=== PATIENT | male | born 1945 | race Caucasian/White ===

== ENCOUNTER 2017-08-03 16:47 | Inpatient (IN) | payer MEDICARE, OTHER, SELFPAY ==
[2017-08-03] VITALS (9 sets, daily range): BP systolic 112–134; BP diastolic 70–82; PULSE 75–92; RESP 17–25; TEMP 36.5–36.8; O2SAT 92–95; BMI 31.3; BMI 32.1
--- NOTE | 2017-08-03 18:17 | EKG12_ITS ---
Test Reason : SOB Blood Pressure : / mmHG Vent. Rate : 076 BPM Atrial Rate : 076 BPM P-R Int : 122 ms QRS Dur : 142 ms QT Int : 458 ms P-R-T Axes : 027 -88 078 degrees QTc Int : 515 ms Atrial-sensed ventricular-paced rhythm Biventricular pacemaker detected Abnormal ECG Confirmed by DARA HARRISON ([id number]), associate editor MARLEN BROWNNIG ([id number] on 08/07/2017 9:42:16 AM Referred By: Dara Mcmahon Confirmed By:DARA HARRISON
[2017-08-03] MEDS: Albuterol 2.5 MG/3 ML VIAL.NEB. INHALATION ×2 (18:50)
[2017-08-03] MEDS: Ipratropium/Albuterol Sulfate 3 ML AMPUL.NEB INHALATION (18:50)
[2017-08-03 18:51] LABS: Allen Test POS; Base Excess 1 mmol/L (-2 to +2); Blood Gas Specimen Type ART; O2 Delivery Device Nasal Can; PO2 83 mmHG (75-100); SITE L Radial; SO2 96 % (95-99); Time Given 1840; Total Carbon Dioxide 27 mmol/L; pCO2 40.8 mmHg (35-45); pH 7.41 (7.35-7.45)
[2017-08-03 18:57] LABS: Absolute Lymphocyte Count 0.43 X10^3/ul (0.83-4.51); Basophil# 0.03 X10^3/uL; Basophil% 0.2 % (0-1); Eosinophil# 0.04 X10^3/uL; Eosinophils% 0.3 % (0-5); Hematocrit 46.4 % (40-54); Hemoglobin 15.6 g/dl (13.0-16.5); Lymphocyte # 0.43 X10^3/ul (4.0); Lymphocyte % 2.8 % (19-41); Mean Corp Hgb Conc 33.6 g/gl (32-36); Mean Corpuscular Hgb 30.6 pg (27.0-32.0); Mean Corpuscular Volume 91.2 fL (80-94); Mean Platelet Vol. 10.7 fl (6.2-12.0); Monocyte# 0.71 X10^3/uL; Monocyte% 4.6 % (0-10); Neutrophil # 13.97 X10^3/uL (2.7-7.7); Neutrophil % 90.9 % (47-70); Platelet Count 173 K/mm3 (150-450); RBC Distribution Width CV 14.1 % (11.6-14.6); RBC Distribution Width SD 46.8 fl (35.1-43.9); Red Blood Count 5.09 M/mm3 (4.6-6.2); White Blood Count 15.4 K/mm3 (4.4-11.0)
[2017-08-03 18:59] LABS: Differential Indicated SCAN CRITERIA MET; POSITIVE COUNT NO; POSITIVE DIFFERENTIAL YES; POSITIVE MORPHOLOGY NO
[2017-08-03 19:03] LABS: International Normalized Ratio 1.1; Prothrombin Time (Protime)PT. 13.5 SECONDS (11.7-14.9)
[2017-08-03 19:04] LABS: Partial Thromboplast Time 31.6 Seconds (24.1-36.2)
[2017-08-03] MEDS: MethylPREDNISolone 125 MG/2 ML Vial IV (19:11)
[2017-08-03] MEDS: 0.9% Normal Saline 1,000 ML 150 ML IV (19:11)
[2017-08-03 19:18] LABS: ALB/GLOB Ratio 0.9 RATIO (0.9-2.4); AST(SGOT) 14 U/L (15-37); Alanine Aminotransfer ALT/SGPT 34 U/L (12-78); Albumin, Serum 2.9 g/dL (3.4-5.0); Alkaline Phosphatase 122 U/L (45-117); Anion Gap 7 (5-15); BUN 24 mg/dL (7-18); BUN/Creat Ratio 21.1 RATIO (10-20); Calcium,Total 8.4 mg/dL (8.5-10.1); Chloride 106 mmol/L (98-107); Creatinine, Serum 1.14 mg/dL (0.70-1.30); EST Glomerular Filtration Rate 67 mL/min (>60); Est Glom Filt Rate - Afr Amer 81 mL/min (>60); Estimated Creatinine Clearance 53.96 ml/min; Globulin 3.4 g/dL (2.2-4.2); Glucose 162 mg/dL (70-110); Lactic Acid 1.6 mmol/L (0.4-2.0); Lipase 67 U/L (73-393); Potassium 4.9 mmol/L (3.5-5.1); Protein, Total 6.3 g/dL (6.4-8.2); Sodium Level 139 mmol/L (136-145)
--- NOTE | 2017-08-03 19:20 | RAD_ITS ---
STUDY: X-RAY CHEST REASON FOR EXAM: Male, 71 years old. Cough and shortness of breath TECHNIQUE: PA and lateral COMPARISON: January 03, 2016 FINDINGS: There is minor subsegmental atelectasis or scarring in both lower lobes.. Tiny nodular density in the right upper and lower lobes which may be due to old granulomatous disease. There is no demonstrated pleural abnormality. Normal size heart. Normal mediastinum and debbie. Normal visualized pulmonary arteries. Normal visualized aortic arch and descending thoracic aorta. Postop changes status post median sternotomy and CABG. Pacemaker noted on the left with electrodes in satisfactory position. Dorsal spine demonstrates spondylosis.. Normal visualized ribs, clavicles, and shoulders. There is no demonstrated abnormality of the visualized soft tissue structures of the upper abdomen. No significant changes since prior exam RAD/Chest PA and Lateral IMPRESSION: Minor subsegmental atelectasis or scarring in both lower lobes. No acute cardiopulmonary pathology Electronically Signed: Fito Dinh MD at 19:52 EST , Service support ,
[2017-08-03] MEDS: Oseltamivir Phosphate 75 MG Capsule PO (21:31)
[2017-08-03] MEDS: 0.9% Normal Saline 1,000 ML 999 ML IV (21:31)
--- NOTE | 2017-08-03 22:32 | PCM.HP.STD ---
Problem List (1) Influenza B Status: Acute (2) COPD (chronic obstructive pulmonary disease) Status: Acute (3) Allergic rhinitis Status: Chronic (4) CAD (coronary artery disease) Status: Chronic Qualifiers: Coronary Disease-Associated Artery/Lesion type: bypass graft (5) COPD (chronic obstructive pulmonary disease) Status: Chronic Qualifiers: COPD type: unspecified COPD Qualified Code(s): J44.9 - Chronic obstructive pulmonary disease, unspecified; J44.9 - Chronic obstructive pulmonary disease, unspecified; J44.9 - Chronic obstructive pulmonary disease, unspecified; J44.9 - Chronic obstructive pulmonary disease, unspecified (6) History of permanent cardiac pacemaker placement Status: Chronic (7) Ischemic cardiomyopathy Status: Chronic (8) BHARAT (obstructive sleep apnea) Status: Chronic (9) Obesity Status: Chronic History of Present Illness Date of Admission: 08/03/17 Chief Complaint: Influ B The patient is a 71 year old male w/ h/o CAD, COPD, HTN, and BHARAT admitted for influ B pneumonia. He has been SOB for the past month. SOB has improved but within the last week, it worsened. He was evaluated in urgent care and was given steroid and doxycycline. He was getting better but in the past few days, he noted worsening SOB. Nothing appeared to make it better or worse. He also has worsening cough with increase frequency and intensity. His cough is productive. SOB is severe that it interfered with his ADLs. 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) Allergies ciprofloxacin [From Cipro] Allergy (Verified 08/03/17 16:51) Swelling ciprofloxacin HCl [From Cipro] Allergy (Verified 08/03/17 16:51) Swelling Sulfa (Sulfonamide Antibiotics) Allergy (Verified 08/03/17 16:51) Swelling Home Medications: Ambulatory Orders Medication Instructions Recorded Albuterol Aerosols [Ventolin 2.5 mg INHALATION Q6H PRN 12/25/13 Aerosols] Albuterol Inhaler [Ventolin Hfa] 1 - 2 puff INHALATION Q4H PRN PRN 12/25/13 Atorvastatin Calcium [Lipitor] 80 mg PO QHS 12/25/13 Carvedilol [Coreg (Beta Sterling)] 6.25 mg PO BID 12/25/13 Clopidogrel Bisulfate [Plavix] 75 mg PO DAILY 12/25/13 Nitroglycerin [Nitrostat] 0.4 mg SUBLINGUAL Q5M PRN 12/25/13 Ramipril [Altace] 10 mg PO BID 12/25/13 amlodipine 10 mg tablet 10 mg PO QDAY 06/25/17 fluticasone 50 mcg/actuation nasal 50 mcg INTRANASAL QDAY PRN 06/25/17 spray,suspension budesonide-formoterol HFA 160 2 puff INHALATION Q12H #1 device 07/04/17 mcg-4.5 mcg/actuation aerosol inhaler Pantoprazole Sodium [Protonix] 20 mg PO BID 08/03/17 Tamsulosin HCl [Flomax] 0.4 mg PO DAILY 08/03/17 Smoking Status: Never smoker Alcohol: None Drugs: None - *Family History Maternal Family History: Family History (Last Reviewed 07/04/17 @ 10:22 by Merced Bedoya) Father Heart disease Cancer Brother Heart disease History Items: No pertinent history Review of Systems Constitutional: Denies: Chills, Fever, Weight Change HEENT: Denies: Head Aches, Sinus Congestion, Sinus Drainage Cardiovascular: Denies: Chest Pain, Palpitations Respiratory: Reports: Cough, Shortness of Breath, Sputum production, Wheezing. Denies: Shortness of breath at rest Gastrointestinal: Denies: Abdominal Pain, Nausea, Vomiting Genitourinary: Denies: Dysuria Musculoskeletal: Denies: Joint Pain, Joint Tenderness Skin: Denies: Rash, Wounds Neurological: Denies: Numbness, Tingling, Focal weakness Psychiatric: Denies: Anxiety, Depression, Homicidal Ideations, Suicidal Ideations Hematologic/ Lymphatic: Denies: Easy Bruising, Easy Bleeding VTE Information - Inpt Only VTE Present on Admission: No VTE Mechan Device Prophylaxis: SCD's VTE Pharm Prophylaxis ordered?: Yes Patient Problems: Active and Suspected Problems (Last Reviewed 07/04/17 @ 10:22 by Merced Bedoya) Influenza B (Acute) COPD (chronic obstructive pulmonary disease) (Acute) - Physical Exam General: Alert, Oriented x3, Cooperative HEENT: Atraumatic, PERRLA, EOMI, Normocephalic Neck: Supple, No JVD, Negative Carotid Bruits Lungs: Short of Breath, Wheezes Cardiovascular: Regular rate, No murmurs Abdomen: Bowel Sounds Present, Soft, Non Tender Extremities: No edema, Capillary Refill Less than 3 Seconds Skin: No rashes, No breakdown Musculoskeletal: No Tenderness to Palpation of Joints or Extremities Neurological: Cranial nerves II-XII grossly intact Psych/Mental Status: Normal Affect, Appropriate Vital Signs Temp Pulse Resp BP Pulse Ox 98.2 F 92 17 117/82 H 95 08/03/17 16:48 08/03/17 22:03 08/03/17 22:03 08/03/17 21:36 08/03/17 22:03 Oxygen Flow Rate 3 Oxygen Delivery Method Room Air Weight: 90.718 kg Body Mass Index (BMI) 31.3 Microbiology Past 72 Hours 08/03/17 19:50 Influenza Types A,B Direct FA (BAILEY) - Final Mucosa - Nose Influenzae B Laboratory Tests Past 24 Hrs 08/03/17 08/03/17 08/03/17 18:44 18:44 18:44 WBC 15.4 H RBC 5.09 Hgb 15.6 Hct 46.4 MCV 91.2 MCH 30.6 MCHC 33.6 RDW 14.1 RDW Differential 46.8 H Plt Count 173 MPV 10.7 Immature Gran % (Auto) 1.200 H Neut % (Auto) 90.9 H Lymph % (Auto) 2.8 L [place] % (Auto) 4.6 Eos % (Auto) 0.3 Baso % (Auto) 0.2 Absolute Neuts (auto) 14.0 H Absolute Lymphs (auto) 0.43 L Total Counted Not Reportable PT 13.5 INR 1.1 APTT 31.6 Specimen Type Sample Site pH Bicarbonate Actual POC Total CO2 Base Excess O2 Saturation ABG pCO2 ABG pO2 Eder Test O2 Delivery Device Liter Flow Blood Gas Notified Whom Blood Gas Notified Time Sodium 139 Potassium 4.9 Chloride 106 Carbon Dioxide 26.0 Anion Gap 7 BUN 24 H Creatinine 1.14 Estim Creat Clear Calc 53.96 Est GFR (MDRD) Af Amer 81 Est GFR (MDRD) Non-Af 67 BUN/Creatinine Ratio 21.1 H Glucose 162 H Lactic Acid Calcium 8.4 L Total Bilirubin 1.20 H AST 14 L ALT 34 Alkaline Phosphatase 122 H Troponin I < 0.02 Total Protein 6.3 L Albumin 2.9 L Globulin 3.4 Albumin/Globulin Ratio 0.9 Lipase 67 L 08/03/17 08/03/17 18:44 18:46 WBC RBC Hgb Hct MCV MCH MCHC RDW RDW Differential Plt Count MPV Immature Gran % (Auto) Neut % (Auto) Lymph % (Auto) [place] % (Auto) Eos % (Auto) Baso % (Auto) Absolute Neuts (auto) Absolute Lymphs (auto) Total Counted PT INR APTT Specimen Type ART Sample Site L Radial pH 7.41 Bicarbonate Actual 26.0 POC Total CO2 27 Base Excess 1 O2 Saturation 96 ABG pCO2 40.8 ABG pO2 83 Eder Test POS O2 Delivery Device Nasal Can Liter Flow 2.0 Blood Gas Notified Whom ED MD Blood Gas Notified Time 1840 Sodium Potassium Chloride Carbon Dioxide Anion Gap BUN Creatinine Estim Creat Clear Calc Est GFR (MDRD) Af Amer Est GFR (MDRD) Non-Af BUN/Creatinine Ratio Glucose Lactic Acid 1.6 Calcium Total Bilirubin AST ALT Alkaline Phosphatase Troponin I Total Protein Albumin Globulin Albumin/Globulin Ratio Lipase Assessment/Plan Active and Suspected Problems (Last Reviewed 07/04/17 @ 10:22 by Merced Bedoya) Influenza B (Acute) COPD (chronic obstructive pulmonary disease) (Acute) 71 year old male w/ h/o CAD, COPD, HTN, and BHARAT admitted for influ B pneumonia. 1) Influ B pneumonia: Will start tamiflu. Will also cover for CAP. Will start ceftriaxone and azithromycin. Cultures pending. 2) Acute on chronic COPD exacerbation: Will start steroid, bronchodilator and oxygen. Monitor. 3) HTN: C/w meds. Monitor.
[2017-08-04] VITALS (12 sets, daily range): BP systolic 112–129; BP diastolic 63–74; PULSE 78–89; RESP 16–22; TEMP 36.5–37.2; O2SAT 90–95
--- NOTE | 2017-08-04 00:33 | ED.DCSUM_ITS ---
- ER Visit Summary Date of Service: 08/04/17 Chief Complaint: Shortness of breath History of Present Illness: The patient is a 71 M who was seen last week in urgent care was diagnosed with COPD exacerbation. He was placed on steroids and doxycycline. He was getting better but as the steroids were weaned states he suddenly became worse. He is now coughing more. He is more short of breath. He has been using his nebulizer and his Symbicort without any relief. He notes chills. Headache. Myalgias. Cough or sputum production. He notes chest and back soreness from coughing Physical Examination: Afebrile vital signs show slight tachypnea Gen: Well-nourished well-developed Head: Normocephalic atraumatic Eyes: Perrl EOMI ENT: TMs clear no congestion moist mucous membranes Neck: Supple no lymphadenopathy no JVD nontender CVS: Regular rate rhythm no murmurs normal S1-S2 Respiratory: No distress rhonchi and wheezing chest wall tenderness Abdomen: Soft nontender nondistended normal bowel sounds no masses Back: Nontender Extremity: Nontender no edema Skin: Normal color no rash Neuro: alert orientated ?3 CN II-XII intact normal strength sensation reflexes gait cerebellar Psych: Normal affect normal mood Test Results: Patient is influenza positive. White count 15.4. Troponin less than 0.02. Chest x-ray with no definitive infiltrate. EKG shows a atrial paced rhythm at a rate of 76. Emergency Department Course and Treatment: She received breathing treatments Solu-Medrol and Tamiflu. After treatment the patient however is at 88-89% on room air. With ambulation he goes to 90% but he becomes extremely tachypneic approaching 30. Our plan will be admission. Impression: 1. Influenza B 2. COPD exacerbation 3. Hypoxemia This note was generated with [employer] dictation software. It may contain incorrect words, spelling, and punctuation that were not noted in review of the chart prior to signing ED Disposition - Plan for ED Patient: Disposition: Acute Care Hospital [facility] Chief Complaint: Shortness of Breath
[2017-08-04] MEDS: 0.9% Normal Saline 1,000 ML 100 ML IV ×3 (00:44→21:40)
[2017-08-04] MEDS: Ramipril 10 MG Capsule PO ×3 (00:44→21:06)
[2017-08-04] MEDS: Carvedilol 6.25 MG Tablet PO ×3 (00:45→21:06)
[2017-08-04] MEDS: guaiFENesin 1,200 MG Tablet 1200 MG PO ×3 (00:45→21:06)
[2017-08-04] MEDS: Montelukast 10 MG Tablet PO ×2 (00:47→21:06)
[2017-08-04] MEDS: Ceftriaxone 1 GM/50 ML BAG IV (00:49)
[2017-08-04] MEDS: Pantoprazole Sodium 20 MG Tablet PO ×3 (00:49→21:06)
[2017-08-04 03:23] LABS: Color, Urine Yellow (Yellow); Glucose, Dipstick 1000 mg/dl (Normal); Ketone-Dipstick 5 mg/dl (Negative); Urine Bilirubin Dipstick Negative (Negative); Urine Clarity Sl. Cloudy (Clear)
[2017-08-04 03:24] LABS: Leukocyte Esterase-Dipstick Negative /ul (Negative); Nitrite-Dipstick Negative (Negative); Occult Blood-Urine Negative /ul (Negative); Protein-Dipstick Negative (Negative); Urine Urobilinogen Normal (Normal)
--- NOTE | 2017-08-04 06:08 | RAD_ITS ---
STUDY: X-RAY CHEST REASON FOR EXAM: Male, 71 years old. Shortness of breath, positive for influenza. TECHNIQUE: PA and lateral views of the chest. COMPARISON: 03 August 2017 FINDINGS: Left pacer place with leads overlying the right atrium and right ventricle. Sternotomy wires are midline. Similar-appearing chronic basilar interstitial markings with no new focal airspace disease. Compounding COPD related changes are present. There is no demonstrated pleural abnormality. Normal size heart. Normal mediastinum and debbie. Normal visualized pulmonary arteries. There is atherosclerotic calcification of the aortic arch with tortuosity. Normal visualized thoracic spine. Normal visualized ribs, clavicles, and shoulders. There is no demonstrated abnormality of the visualized soft tissue structures of the upper abdomen. RAD/Chest PA and Lateral IMPRESSION: Overall similar compared to previous exam with no new focal airspace disease. Electronically Signed: Mark Parsons DO at 7:17 EST , Service support ,
[2017-08-04] MEDS: Budesonide Respules 0.5 MG/2 ML AMPUL.NEB. INHALATION (07:41)
[2017-08-04] MEDS: Albuterol 2.5 MG/3 ML VIAL.NEB. INHALATION ×2 (07:41→11:04)
--- NOTE | 2017-08-04 10:24 | CASEMGMT ---
Face to Face with patient for initial transition planning/care coordination assessment. SALVADOR MENA introduced self and role at [facility], pt voices understanding and consents to assessment at this time. Pt sitting up in bed in no distress at this time. Pt A/O x4 at this time and answers all questions appropriately at this time. Care providers, pharmacy, and demographics verified. See attached link. Pt voices no further concerns/needs at this time. Advised pt to ask for CM if any further questions/concerns/needs arise, voices understanding. PLAN: [place] [employer]OR MENA
[2017-08-04] MEDS: amLODIPine 10 MG Tablet PO (10:54)
[2017-08-04] MEDS: Tamsulosin HCl 0.4 MG Capsule PO (10:55)
[2017-08-04] MEDS: Oseltamivir Phosphate 75 MG Capsule PO ×2 (10:55→21:06)
[2017-08-04] MEDS: Clopidogrel Bisulfate 75 MG Tablet PO (10:55)
[2017-08-04] MEDS: Acetaminophen 325 MG Tablet 650 MG PO ×2 (10:59→17:31)
--- NOTE | 2017-08-04 11:26 | CASEMGMT ---
Social Work Referral from switchboard manager to see patient for information about advanced care planning. This web content & social media manager entered room and introduced self as well as web content & social media manager role in the hospital setting to patient. Patient with no support persons present. Patient only wanting information about advanced care planning and is not wanting to complete advanced care planning paperwork at this time. This web content & social media manager going over advanced care planning information and leaving advanced care planning booklet and power of securities attorney/living will paperwork with patient. No further needs identified at this time. Support given. Ethel PORTER, MATERIALS SUPERVISOR
[2017-08-04 11:41] LABS: Hemoglobin A1c 6.5 % (4.2-6.3)
--- NOTE | 2017-08-04 14:41 | PCM.PROGNOTE ---
Patient Problems: Active and Suspected Problems (Last Reviewed 07/04/17 @ 10:22 by Merced Bedoya) Influenza B (Acute) COPD (chronic obstructive pulmonary disease) (Acute) Subjective: pt resting comfortably in bed. He has a non productive cough and feels that he cannot clear the mucus in his lungs. He is SOB and wheezy. No abdominal discomfort, n/v/d at this time. He was recently on doxy and prednisone. He follow Dr. Slaughter for his COPD. - Physical Exam General: Alert, Oriented x3, Cooperative HEENT: Atraumatic, PERRLA, EOMI, Normocephalic Neck: Supple, No JVD, Negative Carotid Bruits Lungs: Diminished, Rhonchi, Wheezes Cardiovascular: Regular rate, No murmurs Abdomen: Bowel Sounds Present, Soft, Non Tender Extremities: No edema, Capillary Refill Less than 3 Seconds Skin: No rashes, No breakdown Musculoskeletal: No Tenderness to Palpation of Joints or Extremities Neurological: Cranial nerves II-XII grossly intact Psych/Mental Status: Normal Affect, Appropriate, Alert and oriented to time, place, person, mood and affect Vital Signs Temp Pulse Resp BP Pulse Ox 97.8 F 89 18 128/73 H 90 08/04/17 08:57 08/04/17 11:04 08/04/17 11:04 08/04/17 08:57 08/04/17 11:04 Oxygen Flow Rate 3 Oxygen Delivery Method Nasal Cannula Weight: 93.1 kg Body Mass Index (BMI) 32.1 Intake and Output for Last 24 Hours 08/02/17 08/03/17 08/04/17 23:59 23:59 23:59 Intake Total 1999 / 1999 Output Total 1250 / 1250 Balance 750 / 750 Microbiology Past 72 Hours 08/04/17 03:05 Legionella Antigen - Final Urine, Clean Catch 08/04/17 03:05 Streptococcus pneumoniae Antigen (M - Final Urine, Clean Catch Laboratory Tests Past 24 Hrs 08/04/17 03:08 Urine Color Yellow Urine Clarity Sl. Cloudy Urine pH 5.0 Ur Specific [place] 1.020 Urine Protein Negative Urine Glucose (UA) 1000 H Urine Ketones 5 H Urine Occult Blood Negative Urine Nitrite Negative Urine Bilirubin Negative Urine Urobilinogen Normal Ur Leukocyte Esterase Negative Assessment/Plan Active and Suspected Problems (Last Reviewed 07/04/17 @ 10:22 by Merced Bedoya) Influenza B (Acute) COPD (chronic obstructive pulmonary disease) (Acute) 1. Acute influenza B with acute bronchitis - + flu swab. Continue tamiflu and azithromycin. DC rocephin. Urine antigens pending. Blood cultures pending. Recently failed steroids and doxy. + leukocytosis. Afebrile. CXR with atelectasis and scarring in both lower lobes. Wheezing and rhonchi on exam. Poor mucus clearance. Continue mucinex. 2. Acute COPD exacerbation - duonebs, solumedrol, pep/IS therapy. 3. Acute hypoxic respiratory failure 2/2 above - significant dyspnea with heavy wheezy and pt is requring up to 4 lpm O2 via NC. continue O2, IS, above therapy 4. Hyperglycemia - Type 2 DM - with significant glycosuria, likely worsened with recent steroids. A1C 6.5. No prior Dx of DM t2 . Start sliding scale and plan to start metformin at DC if no change in renal function. 5. CAD -hx of ischemic cardiomyopathy, pacemaker 6. BHARAT and obesity - if respiratory function worsens would benefit from bipap overnight DVT ppx: heparin DC planning: when respiratory status improved. May need home O2.
[2017-08-04] MEDS: Ipratropium/Albuterol Sulfate 3 ML AMPUL.NEB INHALATION ×2 (15:58→19:38)
[2017-08-04 17:06] LABS: Bedside Glucose 191 mg/dL (70-110)
[2017-08-04] MEDS: Atorvastatin Calcium 80 MG Tablet PO (21:06)
[2017-08-04] MEDS: 0.9% NaCl Peripheral Flush Adult/Peds IV (21:21)
[2017-08-04 23:26] LABS: Bedside Glucose 194 mg/dL (70-110)
[2017-08-05] VITALS (13 sets, daily range): BP systolic 113–139; BP diastolic 62–80; PULSE 65–89; RESP 16–24; TEMP 36.3–36.9; O2SAT 89–96
[2017-08-05] MEDS: Ipratropium/Albuterol Sulfate 3 ML AMPUL.NEB INHALATION ×6 (00:43→23:27)
[2017-08-05] MEDS: 0.9% NaCl Peripheral Flush Adult/Peds IV ×3 (06:02→22:51)
[2017-08-05] MEDS: 0.9% Normal Saline 1,000 ML 100 ML IV (06:58)
[2017-08-05 07:06] LABS: Bedside Glucose 161 mg/dL (70-110)
[2017-08-05] MEDS: Ramipril 10 MG Capsule PO ×2 (10:03→22:49)
[2017-08-05] MEDS: Carvedilol 6.25 MG Tablet PO ×2 (10:03→22:49)
[2017-08-05] MEDS: guaiFENesin 1,200 MG Tablet 1200 MG PO ×2 (10:03→23:28)
[2017-08-05] MEDS: Pantoprazole Sodium 20 MG Tablet PO ×2 (10:04→22:49)
[2017-08-05] MEDS: amLODIPine 10 MG Tablet PO (10:04)
[2017-08-05] MEDS: Clopidogrel Bisulfate 75 MG Tablet PO (10:04)
[2017-08-05] MEDS: Tamsulosin HCl 0.4 MG Capsule PO (10:04)
[2017-08-05] MEDS: Oseltamivir Phosphate 75 MG Capsule PO ×2 (10:06→22:50)
--- NOTE | 2017-08-05 10:25 | NURSING ---
This nurse started Weaning oxygen on pt. Spo2 at rest was 95% on 3L [address]. This nurse turned oxygen level down to 2L and spo2 maintained at 94%. At 1L of oxygen, spo2 is 94%. This nurse to continue to monitor.
--- NOTE | 2017-08-05 12:02 | PCM.PROGNOTE ---
Patient Problems: Active and Suspected Problems (Last Reviewed 07/04/17 @ 10:22 by Merced Bedoya) Influenza B (Acute) COPD (chronic obstructive pulmonary disease) (Acute) Subjective: Pt feels that he is improving. SOB less severe, cough continues, no fevers or chills. He will have his girlfriend bring in his CPAP machine tonight. - Physical Exam General: Alert, Oriented x3, Cooperative HEENT: Atraumatic, PERRLA, EOMI, Normocephalic Neck: Supple, No JVD, Negative Carotid Bruits Lungs: Normal air movement, Rales, Rhonchi Cardiovascular: Regular rate, No murmurs Abdomen: Bowel Sounds Present, Soft, Non Tender Extremities: No edema, Capillary Refill Less than 3 Seconds Skin: No rashes, No breakdown Musculoskeletal: No Tenderness to Palpation of Joints or Extremities Neurological: Cranial nerves II-XII grossly intact Psych/Mental Status: Normal Affect, Appropriate, Alert and oriented to time, place, person, mood and affect Vital Signs Temp Pulse Resp BP Pulse Ox 97.3 F L 65 20 H 133/77 H 90 08/05/17 10:00 08/05/17 10:57 08/05/17 10:57 08/05/17 10:00 08/05/17 11:57 Oxygen Flow Rate 1 Oxygen Delivery Method Nasal Cannula Weight: 93.1 kg Body Mass Index (BMI) 32.1 Intake and Output for Last 24 Hours 08/03/17 08/04/17 08/05/17 23:59 23:59 23:59 Intake Total 3800 / 3800 1207 / 1207 Output Total 1250 / 1250 1150 / 1150 Balance 2550 / 2550 57 / 57 Microbiology Past 72 Hours 08/04/17 03:05 Legionella Antigen - Final Urine, Clean Catch 08/04/17 03:05 Streptococcus pneumoniae Antigen (M - Final Urine, Clean Catch POC Glucose 08/05/17 08/04/17 08/04/17 06:53 21:02 17:03 POC Glucose 161 H 194 H 191 H Assessment/Plan Active and Suspected Problems (Last Reviewed 07/04/17 @ 10:22 by Merced Bedoya) Influenza B (Acute) COPD (chronic obstructive pulmonary disease) (Acute) 1. Acute influenza B with acute bronchitis - + flu swab. Continue tamiflu and azithromycin. Urine antigens negative. Blood cultures pending. Recently failed steroids and doxy. Afebrile. CXR with atelectasis and scarring in both lower lobes. Wheezing and rhonchi on exam. Continue mucinex. 2. Acute COPD exacerbation - duonebs, solumedrol, pep/IS therapy. 3. Acute hypoxic respiratory failure 2/2 above - significant dyspnea with heavy wheezy and pt is requring up to 4 lpm O2 via NC. continue O2, IS, above therapy 4. Hyperglycemia - Type 2 DM - with significant glycosuria, likely worsened with recent steroids. A1C 6.5. No prior Dx of DM t2 . Start sliding scale and plan to start metformin at DC if no change in renal function. 5. CAD -hx of ischemic cardiomyopathy, pacemaker 6. BHARAT and obesity - he is going to try to get his CPAP machine tonight. DVT ppx: heparin DC planning: when respiratory status improved. May need home O2.
[2017-08-05 12:26] LABS: Bedside Glucose 285 mg/dL (70-110)
[2017-08-05 17:36] LABS: Bedside Glucose 175 mg/dL (70-110)
[2017-08-05] MEDS: Atorvastatin Calcium 80 MG Tablet PO (22:49)
[2017-08-05] MEDS: Montelukast 10 MG Tablet PO (22:49)
[2017-08-05 23:11] LABS: Bedside Glucose 289 mg/dL (70-110)
[2017-08-06] VITALS (9 sets, daily range): BP systolic 126–146; BP diastolic 75–85; PULSE 71–85; RESP 16–20; TEMP 36.5–36.6; O2SAT 90–94
[2017-08-06] MEDS: 0.9% NaCl Peripheral Flush Adult/Peds IV ×2 (06:18→09:38)
[2017-08-06 06:56] LABS: Bedside Glucose 251 mg/dL (70-110)
[2017-08-06] MEDS: Ipratropium/Albuterol Sulfate 3 ML AMPUL.NEB INHALATION ×2 (07:21→10:52)
[2017-08-06] MEDS: Pantoprazole Sodium 20 MG Tablet PO (09:38)
[2017-08-06] MEDS: Oseltamivir Phosphate 75 MG Capsule PO (09:38)
[2017-08-06] MEDS: Clopidogrel Bisulfate 75 MG Tablet PO (09:39)
[2017-08-06] MEDS: guaiFENesin 1,200 MG Tablet 1200 MG PO (09:39)
[2017-08-06] MEDS: Tamsulosin HCl 0.4 MG Capsule PO (09:39)
[2017-08-06] MEDS: amLODIPine 10 MG Tablet PO (09:39)
[2017-08-06] MEDS: Carvedilol 6.25 MG Tablet PO (09:40)
--- NOTE | 2017-08-06 10:34 | PCM.PN.HOSP ---
Subjective: No acute events overnight per self and per nursing report. He notes he is breathing with much greater ease, ambulating the halls without marketed wheezing or fatigue per his report. Oxygenation assessment this morning with clearance for continued room air. Patient states he feels near his baseline and eager for discharge to home. Discussed at length needs for continued rest, avoidance of crowds given influenza positive status and avoidance of recently grandchild until appropriately recovered from influenza with no marketed coughing, afebrile status. Also at length avoidance of aggressive activity until steroid taper completion follow up with primary care physician. Patient denies fevers, chills, nausea, emesis, abdominal pain, chest pain or worsened or recurrent dyspnea. Objective: Physical Examination: General: awake, alert, oriented x 3 and cooperative, seated upright in bed in no apparent distress, prior to this was walking around in the room. Skin: normal color, turgor, no icterus, cyanosis. HEENT: AT/NC, EOMI, PERRLA, mildly dry MM. Lungs: Diminished BL bases, mildly coarse, occasional expiratory wheeze noted, recent aggressive ambulation on the floor, encouraged rest and avoidance of aggressive activity until re-assessment per primary care physician. Heart: Regular rate and rhythm; no gallop, rub audible. Abdomen: soft, obese, NTTP, ND, normal BS. Extremities: no cyanosis, clubbing, or edema. Neurological: patient awake, alert, oriented x 3; cognitive function intact; pupils equally reactive to light and accomodation; cranial nerves II-XII grossly normal, moving all 4 extremities, no focal deficits, strength improved, still moderately globally decreased, pushing himself. Psychiatric: affect appears fatigued, no acute evidence of depressive or anxiety feelings. Vitals/I&O's: Vital Signs Temp Pulse Resp BP Pulse Ox 97.7 F L 79 16 126/75 H 94 08/06/17 10:00 08/06/17 10:00 08/06/17 10:08/06/17 10:08/06/17 10:00 Oxygen Flow Rate 1 Oxygen Delivery Method Nasal Cannula Weight: 205 lb 4.006 oz Body Mass Index (BMI) 32.1 Intake and Output for Last 24 Hours 08/04/17 08/05/17 08/06/17 23:59 23:59 23:59 Intake Total 3800 / 3800 2451 / 2451 325 / 325 Output Total 1250 / 1250 2550 / 2550 Balance 2550 / 2550 -99 / -99 325 / 325 Microbiology Past 72 Hours 08/04/17 03:05 Urine, Clean Catch Legionella Antigen - Final 08/04/17 03:05 Urine, Clean Catch Streptococcus pneumoniae Antigen (M - Final Laboratory Results 08/05/17 12:13: POC Glucose 285 H 08/05/17 17:25: POC Glucose 175 H 08/05/17 22:47: POC Glucose 289 H 08/06/17 06:23: POC Glucose 251 H Current Medications Acetaminophen (Tylenol) 650 mg PO Q4H PRN PRN PRN Reason: FEVER Last Admin: 08/04/17 17:31 Dose: 650 mg Albuterol Sulfate (Ventolin Aerosols) 2.5 mg INHALATION Q4H PRN PRN PRN Reason: wheezing Last Admin: 08/04/17 11:04 Dose: 2.5 mg Albuterol/Ipratropium (Duoneb) 3 ml INHALATION Q4HWA.RT [facility] Last Admin: 08/06/17 07:21 Dose: 3 ml Amlodipine Besylate (Norvasc) 10 mg PO DAILY [facility] Last Admin: 08/06/17 09:39 Dose: 10 mg Atorvastatin Calcium (Lipitor) 80 mg PO QHS [facility] Last Admin: 08/05/17 22:49 Dose: 80 mg Carvedilol (Coreg) 6.25 mg PO BID [facility] Last Admin: 08/06/17 09:40 Dose: 6.25 mg Clopidogrel Bisulfate (Plavix) 75 mg PO DAILY [facility] Last Admin: 08/06/17 09:39 Dose: 75 mg Guaifenesin (Mucinex) 1,200 mg PO BID [facility] Last Admin: 08/06/17 09:39 Dose: 1,200 mg Heparin Sodium (Porcine) (Heparin Na) 5,000 unit SC Q8 [facility] Last Admin: 08/06/17 06:18 Dose: 5,000 units Azithromycin 500 mg/ Dextrose 255 mls @ 250 mls/hr IV Q24 [facility] Stop: 08/06/17 11:02 Last Admin: 08/06/17 09:40 Dose: 250 mls/hr Insulin Aspart (Novolog Flexpen (Bkc)) 0 units SC ACHS [facility] PRN Reason: Protocol Last Admin: 08/06/17 06:24 Dose: 2 unit Methylprednisolone (Solu-Medrol) 40 mg IV Q8 [facility] Last Admin: 08/06/17 06:18 Dose: 40 mg Montelukast Sodium (Singulair) 10 mg PO QHS [facility] Last Admin: 08/05/17 22:49 Dose: 10 mg Nitroglycerin (Nitrostat) 0.4 mg SUBLINGUAL Q5M PRN PRN Reason: Chest Pain Oseltamivir Phosphate (Tamiflu) 75 mg PO BID [facility] Stop: 08/08/17 22:01 Last Admin: 08/06/17 09:38 Dose: 75 mg Pantoprazole Sodium (Protonix) 20 mg PO BID [facility] Last Admin: 08/06/17 09:38 Dose: 20 mg Ramipril (Altace) 10 mg PO BID [facility] Last Admin: 08/05/17 22:49 Dose: 10 mg Sodium Chloride () 5 - 30 ml IV UD PRN PRN Reason: SALINE FLUSH Last Admin: 08/06/17 09:38 Dose: 10 ml Tamsulosin HCl (Flomax) 0.4 mg PO DAILY [facility] Last Admin: 08/06/17 09:39 Dose: 0.4 mg Assessment/Plan The patient is a 71 y/o M w/ PMHx: Chronic COPD, Allergic Rhinitis, CAD, s/p pacemaker status, Ischemic cardiomyopathy, BHARAT, Obesity, HTN, HLD who presents to the [facility] ED on 08/03/16 with history of ongoing dyspnea, productive cough, fatigue, malaise, fever over the last several days prior to presentation. (1) General Malaise, Cough, Fever, General Debility secondary to Influenza B Viral Syndrome: CXR in the ED w/ minor subsegmental atelectasis in both lower lobe, no acute findings. Admission CBC w/ WBC 15.4 but recent steroids. Influenza B positive. Maintained on Tamiflu with last dose 08/08/17 (10 doses). Admitted to [place], maintained on oxygen, continue ATC duonebs, PRN albuterol, HOB, IS parameters w/ pending Bld cx x 2 from ED. (2) Acute Hypoxic Respiratory Failure secondary to Acute on chronic COPD exacerbation secondary to #1, Pneumonia ruled out: CXR w/ chronic changes, maintain on oxygen with wean as tolerated to room air, continue ATC duonebs, PRN albuterol, IV methylprednisolone with prednisone transition, HOB, IS parameters, treated w/ IV Azithromcyin. (3) Hyperglycemia, New onset Diabetes mellitus type II: HgbA1c 6.5%, ADA diet, nutrition consulted for education and teaching, rx for glucometer upon discharge, metformin at discharge to be started w/ close PCP follow-up, accu checks w/ ISS. (4) CAD, Ischemic Cardiomyopathy: s/p pacemaker status. Maintain on asa, plavix, statin, BB (5) Hypertension: Continue home regimen including Norvasc, lisinopril, Coreg, PRN hydralazine. (6) Hyperlipidemia: Continue home statin regimen. (7) Obesity: Weight loss and lifestyle changes encouraged, nutrition consulted. (8) BHARAT: CPAP q HS. (9) DVT Prophylaxis: SCDs, heparin.
--- NOTE | 2017-08-06 10:43 | PN_ITS ---
Subjective: No acute events overnight per self and per nursing report. He notes he is breathing with much greater ease, ambulating the halls without marketed wheezing or fatigue per his report. Oxygenation assessment this morning with clearance for continued room air. Patient states he feels near his baseline and eager for discharge to home. Discussed at length needs for continued rest, avoidance of crowds given influenza positive status and avoidance of recently grandchild until appropriately recovered from influenza with no marketed coughing, afebrile status. Also at length avoidance of aggressive activity until steroid taper completion follow up with primary care physician. Patient denies fevers, chills, nausea, emesis, abdominal pain, chest pain or worsened or recurrent dyspnea. Objective: Physical Examination: General: awake, alert, oriented x 3 and cooperative, seated upright in bed in no apparent distress, prior to this was walking around in the room. Skin: normal color, turgor, no icterus, cyanosis. HEENT: AT/NC, EOMI, PERRLA, mildly dry MM. Lungs: Diminished BL bases, mildly coarse, occasional expiratory wheeze noted, recent aggressive ambulation on the floor, encouraged rest and avoidance of aggressive activity until re-assessment per primary care physician. Heart: Regular rate and rhythm; no gallop, rub audible. Abdomen: soft, obese, NTTP, ND, normal BS. Extremities: no cyanosis, clubbing, or edema. Neurological: patient awake, alert, oriented x 3; cognitive function intact; pupils equally reactive to light and accomodation; cranial nerves II-XII grossly normal, moving all 4 extremities, no focal deficits, strength improved, still moderately globally decreased, pushing himself. Psychiatric: affect appears fatigued, no acute evidence of depressive or anxiety feelings. Vitals/I&O's: Vital Signs Temp Pulse Resp BP Pulse Ox 97.7 F L 79 16 126/75 H 94 08/06/17 10:00 08/06/17 10:00 08/06/17 10:08/06/17 10:08/06/17 10:00 Oxygen Flow Rate 1 Oxygen Delivery Method Nasal Cannula Weight: 205 lb 4.006 oz Body Mass Index (BMI) 32.1 Intake and Output for Last 24 Hours 08/04/17 08/05/17 08/06/17 23:59 23:59 23:59 Intake Total 3800 / 3800 2451 / 2451 325 / 325 Output Total 1250 / 1250 2550 / 2550 Balance 2550 / 2550 -99 / -99 325 / 325 Microbiology Past 72 Hours 08/04/17 03:05 Urine, Clean Catch Legionella Antigen - Final 08/04/17 03:05 Urine, Clean Catch Streptococcus pneumoniae Antigen (M - Final Laboratory Results 08/05/17 12:13: POC Glucose 285 H 08/05/17 17:25: POC Glucose 175 H 08/05/17 22:47: POC Glucose 289 H 08/06/17 06:23: POC Glucose 251 H Current Medications Acetaminophen (Tylenol) 650 mg PO Q4H PRN PRN PRN Reason: FEVER Last Admin: 08/04/17 17:31 Dose: 650 mg Albuterol Sulfate (Ventolin Aerosols) 2.5 mg INHALATION Q4H PRN PRN PRN Reason: wheezing Last Admin: 08/04/17 11:04 Dose: 2.5 mg Albuterol/Ipratropium (Duoneb) 3 ml INHALATION Q4HWA.RT [facility] Last Admin: 08/06/17 07:21 Dose: 3 ml Amlodipine Besylate (Norvasc) 10 mg PO DAILY [facility] Last Admin: 08/06/17 09:39 Dose: 10 mg Atorvastatin Calcium (Lipitor) 80 mg PO QHS [facility] Last Admin: 08/05/17 22:49 Dose: 80 mg Carvedilol (Coreg) 6.25 mg PO BID [facility] Last Admin: 08/06/17 09:40 Dose: 6.25 mg Clopidogrel Bisulfate (Plavix) 75 mg PO DAILY [facility] Last Admin: 08/06/17 09:39 Dose: 75 mg Guaifenesin (Mucinex) 1,200 mg PO BID [facility] Last Admin: 08/06/17 09:39 Dose: 1,200 mg Heparin Sodium (Porcine) (Heparin Na) 5,000 unit SC Q8 [facility] Last Admin: 08/06/17 06:18 Dose: 5,000 units Azithromycin 500 mg/ Dextrose 255 mls @ 250 mls/hr IV Q24 [facility] Stop: 08/06/17 11:02 Last Admin: 08/06/17 09:40 Dose: 250 mls/hr Insulin Aspart (Novolog Flexpen (Bkc)) 0 units SC ACHS [facility] PRN Reason: Protocol Last Admin: 08/06/17 06:24 Dose: 2 unit Methylprednisolone (Solu-Medrol) 40 mg IV Q8 [facility] Last Admin: 08/06/17 06:18 Dose: 40 mg Montelukast Sodium (Singulair) 10 mg PO QHS [facility] Last Admin: 08/05/17 22:49 Dose: 10 mg Nitroglycerin (Nitrostat) 0.4 mg SUBLINGUAL Q5M PRN PRN Reason: Chest Pain Oseltamivir Phosphate (Tamiflu) 75 mg PO BID [facility] Stop: 08/08/17 22:01 Last Admin: 08/06/17 09:38 Dose: 75 mg Pantoprazole Sodium (Protonix) 20 mg PO BID [facility] Last Admin: 08/06/17 09:38 Dose: 20 mg Ramipril (Altace) 10 mg PO BID [facility] Last Admin: 08/05/17 22:49 Dose: 10 mg Sodium Chloride () 5 - 30 ml IV UD PRN PRN Reason: SALINE FLUSH Last Admin: 08/06/17 09:38 Dose: 10 ml Tamsulosin HCl (Flomax) 0.4 mg PO DAILY [facility] Last Admin: 08/06/17 09:39 Dose: 0.4 mg Assessment/Plan The patient is a 71 y/o M w/ PMHx: Chronic COPD, Allergic Rhinitis, CAD, s/p pacemaker status, Ischemic cardiomyopathy, BHARAT, Obesity, HTN, HLD who presents to the [facility] ED on 08/03/16 with history of ongoing dyspnea, productive cough, fatigue, malaise, fever over the last several days prior to presentation. (1) General Malaise, Cough, Fever, General Debility secondary to Influenza B Viral Syndrome: CXR in the ED w/ minor subsegmental atelectasis in both lower lobe, no acute findings. Admission CBC w/ WBC 15.4 but recent steroids. Influenza B positive. Maintained on Tamiflu with last dose 08/08/17 (10 doses). Admitted to [place], maintained on oxygen, continue ATC duonebs, PRN albuterol, HOB, IS parameters w/ pending Bld cx x 2 from ED. (2) Acute Hypoxic Respiratory Failure secondary to Acute on chronic COPD exacerbation secondary to #1, Pneumonia ruled out: CXR w/ chronic changes, maintain on oxygen with wean as tolerated to room air, continue ATC duonebs, PRN albuterol, IV methylprednisolone with prednisone transition, HOB, IS parameters, treated w/ IV Azithromcyin. (3) Hyperglycemia, New onset Diabetes mellitus type II: HgbA1c 6.5%, ADA diet, nutrition consulted for education and teaching, rx for glucometer upon discharge , metformin at discharge to be started w/ close PCP follow-up, accu checks w/ ISS. (4) CAD, Ischemic Cardiomyopathy: s/p pacemaker status. Maintain on asa, plavix , statin, BB (5) Hypertension: Continue home regimen including Norvasc, lisinopril, Coreg, PRN hydralazine. (6) Hyperlipidemia: Continue home statin regimen. (7) Obesity: Weight loss and lifestyle changes encouraged, nutrition consulted. (8) BHARAT: CPAP q HS. (9) DVT Prophylaxis: SCDs, heparin.
[2017-08-06] MEDS: Ramipril 10 MG Capsule PO (11:35)
[2017-08-06 11:46] LABS: Bedside Glucose 274 mg/dL (70-110)
--- NOTE | 2017-08-06 11:57 | PCM.DC ---
- Discharge Diagnoses Current Active Problems: Current Active and Chronic Problems (Last Reviewed 07/04/17 @ 10:22 by Merced Bedoya) Influenza B (Acute) COPD (chronic obstructive pulmonary disease) (Acute) (1) General Malaise, Cough, Fever, General Debility secondary to Influenza B Viral Syndrome (2) Acute Hypoxic Respiratory Failure secondary to Acute on chronic COPD exacerbation secondary to #1 (3) Hyperglycemia, New onset Diabetes mellitus type II, HgbA1c 6.5% (4) Obesity You will use the following diet at home:: Calorie/Carbohydrate Controlled (specify 1200, 1400, etc) - ADA 1800 Your food should be the consistency of: Regular Your liquids should be the consistency of: Regular/Thin Discharge Activity: - - Avoid aggressive activity until completed steroid taper and cleared per your primary care at follow-up. May resume sexual activity in: 10-14 days Weight Bearing Status: Weight bearing as tolerated Call your doctor if you observe: Fever of 101 or Higher, Inability to urinate, Inability to have a bowel movement, Shortness of breath, Dizziness, Fainting spells, Chest pain, Uncontrolled pain Instructions: Adult Self-Care for Colds, Influenza, What is COPD?, Airway Clearance: Coughing Techniques, Caring for Your Inhaler, Using an Inhaler Without a Spacer, Chronic Lung Disease: Maximizing Your Energy, Using a Nebulizer (Adult), Using a Blood Sugar Log, Diabetes and Heart Disease, Long-Term Complications of Diabetes, Hyperglycemia (High Blood Sugar), What Is Type 2 Diabetes?, Using Injected Insulin, Oral Medications for Type 2 Diabetes, Healthy Meals for Diabetes, Diabetes: Understanding Carbohydrates, Diabetes: Keeping Feet Healthy, Diabetes: Inspecting Your Feet, Diabetes: Shopping for and Preparing Meals, Diabetes: Caring for Your Body, Diabetes: Sick-Day Plan, Planning for Travel When You Have Diabetes, Eating Out When You Have Diabetes, Exercise to Manage Your Blood Sugar, Types of Insulin Allergies/Adverse Reactions: Allergies ciprofloxacin [From Cipro] Allergy (Verified 08/03/17 16:51) Swelling ciprofloxacin HCl [From Cipro] Allergy (Verified 08/03/17 23:21) hand Swelling Sulfa (Sulfonamide Antibiotics) Allergy (Verified 08/03/17 23:21) Unknown Medications to take at Discharge Albuterol Inhaler [Ventolin Hfa] 1 - 2 puff INHALATION Q4H PRN PRN 12/25/13 Atorvastatin Calcium [Lipitor] 80 mg PO QHS 12/25/13 Carvedilol [Coreg (Beta Sterling)] 6.25 mg PO BID 12/25/13 Clopidogrel Bisulfate [Plavix] 75 mg PO DAILY 12/25/13 Nitroglycerin [Nitrostat] 0.4 mg SUBLINGUAL Q5M PRN 12/25/13 Ramipril [Altace] 10 mg PO BID 12/25/13 amlodipine 10 mg tablet 10 mg PO QDAY 06/25/17 fluticasone 50 mcg/actuation nasal spray,suspension 50 mcg INTRANASAL QDAY PRN 06/25/17 budesonide-formoterol HFA 160 mcg-4.5 mcg/actuation aerosol inhaler 2 puff INHALATION Q12H #1 device 07/04/17 Pantoprazole Sodium [Protonix] 20 mg PO BID 08/03/17 Tamsulosin HCl [Flomax] 0.4 mg PO DAILY 08/03/17 Albuterol Aerosols [Ventolin Aerosols] 2.5 mg INHALATION Q4H PRN PRN #1 box 08/06/17 Guaifenesin [Mucinex] 1,200 mg PO BID #20 tab 08/06/17 Insulin Aspart [Novolog Flexpen] See Protocol [facility] ACHS #1 flexpen 08/06/17 Ipratropium/Albuterol Sulfate [Duoneb] 3 ml INHALATION Q4HWA.RT #1 box 08/06/17 Metformin HCl 500 mg PO BID #60 tab 08/06/17 Montelukast [Singulair] 10 mg PO QHS tablet 08/06/17 Oseltamivir Phosphate [Tamiflu] 75 mg PO BID #10 cap 08/06/17 Prednisone 10 mg PO UD #30 tab 08/06/17 The following prescriptions were given: Albuterol Aerosols [Ventolin Aerosols] 2.5 mg INHALATION Q4H PRN PRN #1 box PRN Reason: dyspnea, wheezing Ipratropium/Albuterol Sulfate [Duoneb] 3 ml INHALATION Q4HWA.RT #1 box Insulin Aspart [Novolog Flexpen] See Protocol SC ACHS #1 flexpen Prednisone 10 mg PO UD #30 tab Guaifenesin [Mucinex] 1,200 mg PO BID #20 tab Metformin HCl 500 mg PO BID #60 tab Oseltamivir Phosphate [Tamiflu] 75 mg PO BID #10 cap Orders to be completed after discharge: Glucometer Location: None Selected Primary Care Physician: Fito Velez MD [Primary Care Provider] - Please follow up with your Primary Care Physician in: Follow-up within 3-5 days to review admission. Proposed Discharge Date: 08/06/17
--- NOTE | 2017-08-06 12:10 | PCM.DC.SUM ---
Discharge Date and Diagnosis Date of Admission: 08/03/17 Date of Discharge: 08/06/17 - Primary Discharge Diagnosis Active and Suspected Problems (Last Reviewed 07/04/17 @ 10:22 by Merced Bedoya) (1) General Malaise, Cough, Fever, General Debility secondary to Influenza B Viral Syndrome (2) Acute Hypoxic Respiratory Failure secondary to Acute on chronic COPD exacerbation secondary to #1, Pneumonia ruled out (3) Hyperglycemia, New onset Diabetes mellitus type II (4) CAD, Ischemic Cardiomyopathy (5) Hypertension (6) Hyperlipidemia (7) Obesity (8) BHARAT - Secondary Discharge Diagnosis Chronic Problems (Last Reviewed 07/04/17 @ 10:22 by Merced Bedoya) History of permanent cardiac pacemaker placement (Chronic) Shortness of breath (Chronic) Nicotine dependence in remission (Chronic) Obesity (Chronic) COPD (chronic obstructive pulmonary disease) (Chronic) BHARAT (obstructive sleep apnea) (Chronic) Allergic rhinitis (Chronic) Ischemic cardiomyopathy (Chronic) Peripheral vascular disease (Chronic) CAD (coronary artery disease) (Chronic) 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 CXR in the ED w/ minor subsegmental atelectasis in both lower lobe, no acute findings. Admission CBC w/ WBC 15.4 but recent steroids. Influenza B positive. Maintained on Tamiflu with last dose 08/08/17 (10 doses). Admitted to [place], maintained on oxygen, continue ATC duonebs, PRN albuterol, HOB, IS parameters. Acute Hypoxic Respiratory Failure secondary to also concurrent Acute on chronic COPD exacerbation secondary to Influenza with Pneumonia ruled out. Transitioned off IV methylprednisolone with prednisone transition w/ taper upon discharge, HOB, IS parameters, treated w/ IV Azithromcyin x 3 days for COPD exacerbation. During admission notable hyperglycemia w/ dx during admission New onset Diabetes mellitus type II w/ HgbA1c 6.5% w/ ADA diet, nutrition consulted for education and teaching, rx for glucometer upon discharge, metformin at discharge w/ recommendation close PCP follow-up, accu checks w/ ISS. Patient discharged to home in improved stable condition with recommended avoidance of aggressive activity until resolution exacerbation, influenza treatment completed without marked cough or fever. Advised PCP follow-up within 3-5 days. Discharge Diet: 1800 Calorie Control Diet Discharge Activity: - - Avoid aggressive activity until completed steroid taper and cleared per your primary care at follow-up. May resume sexual activity in: 10-14 days Weight Bearing Status: Weight bearing as tolerated Call your doctor if you observe: Fever of 101 or Higher, Inability to urinate, Inability to have a bowel movement, Shortness of breath, Dizziness, Fainting spells, Chest pain, Uncontrolled pain Home Medications: Medications to take at Discharge Albuterol Inhaler [Ventolin Hfa] 1 - 2 puff INHALATION Q4H PRN PRN 12/25/13 Atorvastatin Calcium [Lipitor] 80 mg PO QHS 12/25/13 Carvedilol [Coreg (Beta Sterling)] 6.25 mg PO BID 12/25/13 Clopidogrel Bisulfate [Plavix] 75 mg PO DAILY 12/25/13 Nitroglycerin [Nitrostat] 0.4 mg SUBLINGUAL Q5M PRN 12/25/13 Ramipril [Altace] 10 mg PO BID 12/25/13 amlodipine 10 mg tablet 10 mg PO QDAY 06/25/17 fluticasone 50 mcg/actuation nasal spray,suspension 50 mcg INTRANASAL QDAY PRN 06/25/17 budesonide-formoterol HFA 160 mcg-4.5 mcg/actuation aerosol inhaler 2 puff INHALATION Q12H #1 device 07/04/17 Pantoprazole Sodium [Protonix] 20 mg PO BID 08/03/17 Tamsulosin HCl [Flomax] 0.4 mg PO DAILY 08/03/17 Albuterol Aerosols [Ventolin Aerosols] 2.5 mg INHALATION Q4H PRN PRN #1 box 08/06/17 Guaifenesin [Mucinex] 1,200 mg PO BID #20 tab 08/06/17 Insulin Aspart [Novolog Flexpen] See Protocol [facility] ACHS #1 flexpen 08/06/17 Ipratropium/Albuterol Sulfate [Duoneb] 3 ml INHALATION Q4HWA.RT #1 box 08/06/17 Metformin HCl 500 mg PO BID #60 tab 08/06/17 Montelukast [Singulair] 10 mg PO QHS tablet 08/06/17 Oseltamivir Phosphate [Tamiflu] 75 mg PO BID #10 cap 08/06/17 Prednisone 10 mg PO UD #30 tab 08/06/17 Following Prescrptions Were Given to Patient: Albuterol Aerosols [Ventolin Aerosols] 2.5 mg INHALATION Q4H PRN PRN #1 box PRN Reason: dyspnea, wheezing Ipratropium/Albuterol Sulfate [Duoneb] 3 ml INHALATION Q4HWA.RT #1 box Insulin Aspart [Novolog Flexpen] See Protocol [facility] ACHS #1 flexpen Prednisone 10 mg PO UD #30 tab Guaifenesin [Mucinex] 1,200 mg PO BID #20 tab Metformin HCl 500 mg PO BID #60 tab Oseltamivir Phosphate [Tamiflu] 75 mg PO BID #10 cap Other Amb Orders: Glucometer Location: None Selected Primary Care Physician: Fito Velez MD [Primary Care Provider] - Please follow up with your Primary Care Physician in: Follow-up within 3-5 days to review admission. Patient Instructions: Using a Blood Sugar Log, Diabetes and Heart Disease, Long-Term Complications of Diabetes, Hyperglycemia (High Blood Sugar), What Is Type 2 Diabetes?, Using Injected Insulin, Oral Medications for Type 2 Diabetes, Types of Insulin, Healthy Meals for Diabetes, Diabetes: Understanding Carbohydrates, Eating Out When You Have Diabetes, Exercise to Manage Your Blood Sugar, Diabetes: Keeping Feet Healthy, Diabetes: Inspecting Your Feet, Diabetes: Shopping for and Preparing Meals, Diabetes: Caring for Your Body, Diabetes: Sick-Day Plan, Planning for Travel When You Have Diabetes, Adult Self-Care for Colds, What is COPD?, Airway Clearance: Coughing Techniques, Caring for Your Inhaler, Using an Inhaler Without a Spacer, Chronic Lung Disease: Maximizing Your Energy, Using a Nebulizer (Adult), Influenza Disposition: Home Minutes spent on discharge:: 35 Patient Condition:: Fair Meaningful Use Info Meaningful Use Diagnoses (Choose all that apply): None applicable Code Visit Inpatient E&M: 59184 Disch Hosp
[2017-08-06] MEDS: Albuterol 2.5 MG/3 ML VIAL.NEB. INHALATION (12:52)
== END 2017-08-06 13:50 | disposition home or self-care (01) | DRG 193 ==
LOC: ED 18:28 → MS3 22:47
PROVIDERS: Internal Medicine; Physician Assistant; Admitting Provider Internal Medicine; Emergency Provider Emergency Medicine; Family Provider Family Medicine; PCP Family Medicine; Visit Provider Family Medicine
DX: J10.1 Influenza due to other identified influenza virus with other respiratory manifestations (principal); J96.01 Acute respiratory failure with hypoxia; J44.1 Chronic obstructive pulmonary disease with (acute) exacerbation; I25.5 Ischemic cardiomyopathy; I25.10 Atherosclerotic heart disease of native coronary artery without angina pectoris; E11.65 Type 2 diabetes mellitus with hyperglycemia; I10 Essential (primary) hypertension; E78.5 Hyperlipidemia, unspecified; E66.9 Obesity, unspecified; J30.9 Allergic rhinitis, unspecified; G47.33 Obstructive sleep apnea (adult) (pediatric); I73.9 Peripheral vascular disease, unspecified; Z95.810 Presence of automatic (implantable) cardiac defibrillator; Z87.891 Personal history of nicotine dependence
CPT/HCPCS: 36600; 71046; 80053; 81002; 82803; 82962; 83036; 83605; 83690; 84484; 85025; 85610; 85730; 87040; 87449; 87804; 93005; 94640; 94667; 94668; 99284; J7030; A4216

== ENCOUNTER → 2017-10-30 06:15 | Outpatient (CLI) | payer MEDICARE, OTHER, SELFPAY ==
--- NOTE | 2017-10-30 10:29 | STRESSREP_ITS ---
Stress Test Report Date: 10/30/2017 Procedure: Pharmacologic stress nuclear imaging study Indications: Chest pain Consent: Per the patient Procedure: The patient underwent pharmacologic (Regadenoson) evaluation with a peak heart rate of 129 beats per minute (87 predicted maximal heart rate) and a peak blood pressure of 140/78 mmHg. The baseline ECG demonstrated electronic ventricular pacemaker. The peak pharmacologic ECG demonstrated continued electronic ventricular pacemaker. There was a rare premature ectopic complex during recovery. There was no complaint of chest discomfort during pharmacologic infusion or recovery. The examination was discontinued secondary to completion of protocol. Impression: 1. Pharmacologic (Regadenoson) evaluation 2. Peak pharmacologic ECG with continued electronic ventricular pacemaker. 3. It was a rare premature ectopic complex during recovery 4. Nuclear images pending Myocardial perfusion imaging study: Technique: The patient was injected with 11.2 millicuries of technetium 99m Cardiolite and subsequently rest SPECT Cardiolite nuclear imaging was obtained in the horizontal long, vertical long, and short axis views. The patient underwent pharmacologic (Regadenoson) evaluation with a peak heart rate of 129 beats per minute (7 % percent predicted maximal heart rate) and a peak blood pressure of 140/78 mmHg. The patient was injected with 33.4 millicuries of technetium 99m Cardiolite and subsequently stress SPECT Cardiolite nuclear imaging was obtained in the horizontal long, vertical long, and short axis views. A gated Cardiolite study at peak stress was obtained. Interpretation: Rest and stress SPECT Cardiolite nuclear imaging status post realignment, normalization, and attenuation correction demonstrate active uniform tracer uptake and myocardial perfusion appearing within normal limits. There is end systolic thickening and brightening. The gated Cardiolite study demonstrates myocardial thickening and inward wall motion. The reported LVEF is 64 %. Impression: 1. Rest and stress SPECT Cardiolite nuclear imaging demonstrate relative uniform tracer uptake and myocardial perfusion appearing within normal limits. 2. The gated Cardiolite study reports an LVEF of 64 %. This note was generated with [employer] software. It may contain incorrect words, spelling, and punctuation that were not noted in checking the note before signing.
== END ==
PROVIDERS: Family Provider Family Medicine; PCP Family Medicine; Visit Provider Internal Medicine Cardiovascular Disease
DX: R07.9 Chest pain, unspecified (principal)
CPT/HCPCS: 78452; 93017; A9500; A4216; J2785

== ENCOUNTER 2017-11-17 20:43 | Emergency (ER) | payer MEDICARE, OTHER, SELFPAY ==
[2017-11-17 20:44] VITALS: BP 187/91; PULSE 104; RESP 16; TEMP 38.3; O2SAT 94; BMI 32.2
--- NOTE | 2017-11-17 20:57 | RAD_ITS ---
STUDY: X-RAY CHEST REASON FOR EXAM: Male, 71 years old. Cough and COPD TECHNIQUE: Single AP portable view of the chest. COMPARISON: 08/04/17. FINDINGS: There is hyperinflation of the lungs consistent with chronic obstructive lung disease (COPD). No infiltrates. No effusions. There is no demonstrated pleural abnormality. Sternal cerclage wires and vascular clips are present from a prior sternotomy and coronary artery bypass graft procedure (CABG). Pacemaker is seen with leads terminating in the right atrium and right ventricle. Normal mediastinum and debbie. Normal visualized pulmonary arteries. Normal visualized aortic arch and descending thoracic aorta. Normal visualized thoracic spine. Normal visualized ribs, clavicles, and shoulders. There is no demonstrated abnormality of the visualized soft tissue structures of the upper abdomen. RAD/Chest 1 View (Portable) IMPRESSION: There are findings consistent with COPD. There is no evidence of acute chest disease. Electronically Signed: Cristian Alexander MD at 21:22 EDT , Service support ,
--- NOTE | 2017-11-17 20:58 | EKG12_ITS ---
Test Reason : Blood Pressure : / mmHG Vent. Rate : 094 BPM Atrial Rate : 094 BPM P-R Int : 114 ms QRS Dur : 142 ms QT Int : 404 ms P-R-T Axes : 014 -89 065 degrees QTc Int : 505 ms Atrial-sensed ventricular-paced rhythm Biventricular pacemaker detected Abnormal ECG Confirmed by MARCIO MEYER, SHARIF ([id number]), editor publications MARLEN BROWNING ([id number]) on 11/20/2017 1:16:02 PM Referred By: RITA Confirmed By:SHARIF BUCKLEY MD
[2017-11-17] MEDS: Acetaminophen 325 MG Tablet 650 MG PO (21:20)
[2017-11-17] MEDS: 0.9% Normal Saline 1,000 ML 1000 ML IV ×2 (21:21→22:38)
[2017-11-17 21:23] VITALS: BP 158/76; PULSE 99; RESP 19; O2SAT 94
[2017-11-17 21:25] VITALS: O2SAT 94
[2017-11-17 21:34] LABS: Absolute Lymphocyte Count 1.18 X10^3/ul (0.83-4.51); Absolute Neutrophil Count 18.8 X10^3/uL (2.0-7.7); Basophil# 0.03 X10^3/uL; Basophil% 0.1 % (0-1); Eosinophil# 0.04 X10^3/uL; Eosinophils% 0.2 % (0-5); Hematocrit 46.3 % (40-54); Hemoglobin 15.9 g/dl (13.0-16.5); Lymphocyte # 1.18 X10^3/ul (4.0); Lymphocyte % 5.5 % (19-41); Mean Corp Hgb Conc 34.3 g/gl (32-36); Mean Corpuscular Hgb 31.2 pg (27.0-32.0); Mean Platelet Vol. 11.2 fl (6.2-12.0); Monocyte# 1.35 X10^3/uL; Monocyte% 6.3 % (0-10); Neutrophil # 18.75 X10^3/uL (2.7-7.7); Neutrophil % 87.4 % (47-70); Platelet Count 126 K/mm3 (150-450); RBC Distribution Width CV 13.6 % (11.6-14.6); RBC Distribution Width SD 44.4 fl (35.1-43.9); Red Blood Count 5.09 M/mm3 (4.6-6.2); White Blood Count 21.5 K/mm3 (4.4-11.0)
[2017-11-17 21:40] LABS: POSITIVE COUNT NO; POSITIVE DIFFERENTIAL NO; POSITIVE MORPHOLOGY NO
[2017-11-17 22:01] LABS: Anion Gap 9 (5-15); BUN 20 mg/dL (7-18); BUN/Creat Ratio 17.7 RATIO (10-20); Calcium,Total 8.3 mg/dL (8.5-10.1); Chloride 106 mmol/L (98-107); Creatinine, Serum 1.13 mg/dL (0.70-1.30); EST Glomerular Filtration Rate 67 mL/min (>60); Est Glom Filt Rate - Afr Amer 82 mL/min (>60); Estimated Creatinine Clearance 54.43 ml/min; Glucose 132 mg/dL (74-106); Potassium 3.8 mmol/L (3.5-5.1); Sodium Level 139 mmol/L (136-145)
[2017-11-17 22:15] LABS: Lactic Acid 1.7 mmol/L (0.4-2.0)
[2017-11-17 22:39] VITALS: BP 144/76; PULSE 91; RESP 28; TEMP 37.3; O2SAT 92
--- NOTE | 2017-11-17 23:28 | ED.DCSUM_ITS ---
- ER Visit Summary Date of Service: 11/17/17 Chief Complaint: [] Shortness of breath History of Present Illness: The patient is a 71 M [] complaining of shortness of breath, cough, fever. Patient reports he recently completed a course of prednisone tapering, Z-Dawson, hydra codon cough syrup provided from a local urgent care. Patient reports he feels feverish. Has a slightly productive cough without hemoptysis. Reports he has chills. He reports as his tapering dose of prednisone got lower and lower his symptoms progressively worsened. Denies chest pain. No other complaints at this time. Physical Examination: [] Temperature 101, remainder of vitals unremarkable. 71-year-old male no acute distress. Cardiovascular exam is regular rate and rhythm. Lungs are clear to auscultation with diminished breath sounds at the bases. Abdomen is soft nontender. There is no lower extremity edema. Test Results: [] EKG shows paced rhythm with rate of 94. This is unchanged from previous EKG. CBC is significant for white blood cell count of 21.5. Electrolites are normal. Lactic acid is normal at 1.7. Chest x-ray 1 view is negative. Emergency Department Course and Treatment: [] Patient was given 2 L of normal saline as well as oral Tylenol. On serial examination patient had improvement of symptoms. The elevated white blood cell count is not concerning in light of the fact the patient took 10 days of prednisone prior to arrival today. X-rays negative. Patient looks clinically much improved after the fluid boluses. He will be restarted on azithromycin and prednisone. He did receive a dose of Solu-Medrol prior to discharge. He received an oral dose of azithromycin prior to discharge as well. Treatment Plan: [] Follow-up with PCP in 72 hours. Disposition: [] Discharge, stable. Impression: [] Bronchitis This note was generated with [employer] dictation software. It may contain incorrect words, spelling, and punctuation that were not noted in review of the chart prior to signing ED Disposition - Plan for ED Patient: Chief Complaint: Shortness of Breath Referrals: Fito Velez MD [Primary Care Provider] -
--- NOTE | 2017-11-17 23:28 | ED.DEP ---
ED Disposition - Plan for ED Patient: Disposition: Home or Assisted Living Chief Complaint: Shortness of Breath Instructions: ED Upper Resp Infec Abx Tx Prescriptions: Azithromycin 250 mg PO DAILY #4 tab Prednisone [Deltasone] 40 mg PO DAILY #4 tab Referrals: Fito Velez MD [Primary Care Provider] -
[2017-11-17] MEDS: Azithromycin 250 MG Tablet 500 MG PO (23:37)
[2017-11-17 23:38] VITALS: BP 155/88; PULSE 86; RESP 21; O2SAT 94
[2017-11-17] MEDS: MethylPREDNISolone 125 MG/2 ML Vial IV (23:38)
== END 2017-11-17 23:43 | disposition home or self-care (01) ==
PROVIDERS: Emergency Provider Emergency Medicine; Family Provider Family Medicine; PCP Family Medicine
DX: J40 Bronchitis, not specified as acute or chronic (principal); I10 Essential (primary) hypertension; E78.00 Pure hypercholesterolemia, unspecified; I25.10 Atherosclerotic heart disease of native coronary artery without angina pectoris; Z95.1 Presence of aortocoronary bypass graft
CPT/HCPCS: 71045; 80048; 83605; 85025; 87040; 87633; 93005; 96361; 96374; 99285; J7030; A4216

== ENCOUNTER → 2018-05-28 10:03 | Outpatient (CLI) | payer MEDICARE, OTHER, SELFPAY ==
[2018-05-28 10:15] VITALS: PULSE 76; PULSE 77; PULSE 86; PULSE 88; PULSE 89; PULSE 94; PULSE 95; O2SAT 91; O2SAT 92; O2SAT 93; O2SAT 95
--- NOTE | 2018-05-28 12:37 | PCM.PSN.6M ---
PSN 6 Minute Walk Test - 6 Minute Walk Test 6 Minute Walk Test: 6 Minute Walk Test PSN:6-Minute Walk Test Start: 05/28/18 10:26 Freq: Status: Active Protocol: RESP.6MINW Document 05/28/18 10:15 [facility] (Rec: 05/28/18 10:29 [facility] [id number]) 6 Minute Walk Test Date Performed 05/28/18 Time Performed 10:15 Height 5 ft 7 in Weight: 205 lb Weight in Pounds 205.[address]: Kiko Slaughter Assistive device used: None Pre-test Oxygen Delivery Method Room Air Pulse Ox (%) 92 Pulse Rate (60-100 beats/min) 76 Dyspnea Guido Scale (0-10) 0 Exertion Guido Scale (6-20) 6 1st minute Oxygen Delivery Method Room Air Pulse Ox (%) 92 Pulse Rate (60-100 beats/min) 88 Number of Rests Taken 0 2nd minute Oxygen Delivery Method Room Air Pulse Ox (%) 92 Pulse Rate (60-100 beats/min) 89 Number of Rests Taken 0 3rd minute Oxygen Delivery Method Room Air Pulse Ox (%) 91 Pulse Rate (60-100 beats/min) 94 Number of Rests Taken 0 4th minute Oxygen Delivery Method Room Air Pulse Ox (%) 93 Pulse Rate (60-100 beats/min) 89 Number of Rests Taken 0 5th minute Oxygen Delivery Method Room Air Pulse Ox (%) 92 Pulse Rate (60-100 beats/min) 86 Number of Rests Taken 0 6th minute Oxygen Delivery Method Room Air Pulse Ox (%) 93 Pulse Rate (60-100 beats/min) 95 Number of Rests Taken 0 Post-test Oxygen Delivery Method Room Air Pulse Ox (%) 95 Pulse Rate (60-100 beats/min) 77 Dyspnea Guido Scale (0-10) 2 Exertion Guido Scale (6-20) 11 Number of Rests Taken 0 Full Laps Walked 19 Partial Lap, Number of Tiles Walked 37 Total Distance Walked (ft) 1158 - Interpretation Interpretation: The patient ambulated 1158 feet over the course of 6 minutes beginning on room air without assistive devices or breaks. Pretesting oxygen saturation was noted to be 92% on room air. With ambulation, the morenita oxygen saturation was 91%. There was no significant exertional oxygen desaturation. - Recommendations Recommendations: There is no indication for the use of supplemental oxygen at this time.
== END ==
PROVIDERS: Family Provider Family Medicine; PCP Family Medicine; Referring Provider Internal Medicine Critical Care Medicine; Visit Provider Internal Medicine Critical Care Medicine
DX: J44.9 Chronic obstructive pulmonary disease, unspecified (principal)
CPT/HCPCS: 94618

== ENCOUNTER → 2018-05-31 07:55 | Outpatient (CLI) | payer MEDICARE, OTHER, SELFPAY ==
--- NOTE | 2018-06-01 08:30 | PFT ---
INTRODUCTION: The patient is a 72-year-old male that presents for pulmonary function testing secondary to a diagnosis of COPD. Respiratory therapy reports good patient effort. Bronchodilators were used during testing. INTERPRETATION: Forced expiration spirometry demonstrates the presence of a mild large airways obstructive ventilatory defect. There was a significant response to aerosolized bronchodilators noted. Spirograms are of good quality and do not plateau indicating slow emptying of the lungs. Body plethysmography was performed and reveals lung volumes to be within normal limits. Diffusing capacity by single breath CO is within normal limits at 82% of predicted. When compared to previous pulmonary function studies dated June 2017, there has been a 15% reduction in FEV1. IMPRESSION: These pulmonary function studies demonstrate the presence of a partially reversible mild large airways obstructive ventilatory defect with preserved lung volumes and diffusing capacity.
== END ==
PROVIDERS: Family Provider Family Medicine; PCP Family Medicine; Referring Provider Internal Medicine Critical Care Medicine; Visit Provider Internal Medicine Critical Care Medicine
DX: J44.9 Chronic obstructive pulmonary disease, unspecified (principal)
CPT/HCPCS: 94060; 94726; 94729

== ENCOUNTER → 2018-12-23 15:26 | Outpatient (CLI) | payer MEDICARE, OTHER, SELFPAY ==
[2018-12-16 12:46] VITALS: BMI 32.7
== END ==
PROVIDERS: Family Provider Family Medicine; PCP Family Medicine; Referring Provider Otolaryngology Otolaryngology/Facial Plastic Surgery; Visit Provider Otolaryngology Otolaryngology/Facial Plastic Surgery
DX: J32.9 Chronic sinusitis, unspecified (principal)
CPT/HCPCS: 87070; 87077; 87186; 87205

== ENCOUNTER → 2019-05-20 12:48 | Outpatient (CLI) | payer MEDICARE, OTHER, SELFPAY ==
[2018-12-16 12:46] VITALS: BMI 32.7
[2019-04-28 09:00] VITALS: BMI 32.5
--- NOTE | 2019-05-20 12:49 | CT_ITS ---
STUDY: CT CHEST WITHOUT CONTRAST REASON FOR EXAM: Male, 73 years old. Lung nodule RADIATION DOSAGE (If Supplied By Facility): CTDIvol = ( 17.04 ) mGy, DLP = ( 600.29 ) mGycm TECHNIQUE: Transaxial imaging was performed without the administration of intravenous contrast material. Individualized dose optimization techniques were used for this CT. COMPARISON: Chest x-ray 11/17/2017. FINDINGS: There is hyperinflation of the lungs consistent with chronic obstructive lung disease (COPD). Scattered tiny pulmonary densities throughout both lungs are seen most consistent with areas of mild fibrosis and postinflammatory scarring. No definite nodules or mass. No infiltrates. No effusions. There is no demonstrated pleural abnormality. Sternal cerclage wires and vascular clips are present from a prior sternotomy and coronary artery bypass graft procedure (CABG). Pacemaker is seen with leads terminating in the right atrium and right ventricle. There are calcifications of the coronary arteries. Normal mediastinum. Normal hilar regions. Normal unenhanced pulmonary arteries. Normal aorta arch and descending thoracic aorta. There are multi-level degenerative changes of the thoracic spine. Limited views of the upper abdomen show cholelithiasis and fatty infiltration of the pancreas. CT/Chest without Contrast IMPRESSION: COPD with scattered fibrotic changes but no evidence for acute chest disease, nodules or masses. Electronically Signed: Cristian Alexander MD at 21:30 EST , Service support ,
== END ==
PROVIDERS: Family Provider Family Medicine; PCP Family Medicine; Referring Provider Internal Medicine Critical Care Medicine; Visit Provider Internal Medicine Critical Care Medicine
DX: R91.1 Solitary pulmonary nodule (principal)
CPT/HCPCS: 71250

== ENCOUNTER → 2019-12-05 07:57 | Outpatient (CLI) | payer MEDICARE, OTHER, SELFPAY ==
[2019-11-12 09:03] VITALS: BMI 32.7
--- NOTE | 2019-12-05 07:59 | ART_ITS ---
Reason For Study: Claudication Procedure A bilateral lower extremity continuous wave Doppler with analog waveform analysis,segmental pressures,and ankle brachial indexes without exercise. Left Segmental Pressures Left brachial= 137mmHg. Left posterior tibial artery = 142mmHg. Left dorsalis pedis artery = 124mmHg. Left digit = 130 mmHg. The left dorsalis pedis waveforms are triphasic. The left posterior tibial artery waveforms are triphasic. Right Segmental Pressures Right brachial= 135mmHg. Right posterior tibial artery = 161mmHg. Right dorsalis pedis artery = 145mmHg. Right digit = 152 mmHg. The right dorsalis pedis waveforms are triphasic. The right posterior tibial artery waveforms are triphasic. Indices The right ankle brachial index by the dorsalis pedis is 1.06. The right ankle brachial index by the posterior tibial artery is 1.18. The right digital-brachial index is 1.11. The left ankle brachial index by the dorsalis pedis is 0.91. The left ankle brachial index by the posterior tibial artery is 1.04. The left digital-brachial index is 0.95. Interpretation Summary Resting ankle-brachial indices appear bilaterally normal. Ordering Physician: Yanick Singh Referring Physician: Fito Velez Performed By: Shasta Woods RVT
--- NOTE | 2019-12-05 07:59 | ADUL_ITS ---
Reason For Study: Claudication Left Velocities Ext Iliac Artery, dist = 146.9 cm./sec. Common Femoral Artery, mid = 179.8 cm./sec. Supf. Femoral Artery, prox = 133 cm./sec. SFA prox, prox stent, 97.9 cm/sec. SFA mid, mid stent, 92.4 cm/sec. SFA distal, distal stent, 112.5 cm/sec. Profunda Femoral Artery = 82.5 cm./sec. Popliteal artery prox, distal to stent, 105.2 cm/sec. Popliteal Artery, mid = 92.4 cm./sec. Popliteal Artery, distal = 65 cm./sec. Post. Tibial Artery, prox = 77.8 cm./sec. Post Tibial Artery, mid = 63.4 cm./sec. Post Tibial Artery, dist. = 103.4 cm./sec. Peroneal Artery, prox = 32.7 cm./sec. Peroneal Artery, mid = 28 cm./sec. Peroneal Artery,dist. = 42.1 cm./sec. Ant.Tibial Artery, prox = 42.1 cm./sec. Ant Tibial Artery, mid = 125.3 cm./sec. Ant. Tibial Artery, distal = 58.9 cm./sec. Procedure Exam performed in department. Interpretation Summary Patent left lower extremity arteries with patent left superficial femoral artery stent--<50% stenosis 50-99% stenosis left mid anterior tibial artery Ordering Physician: Yanick Singh Referring Physician: Fito Velez Performed By: Shasta Woods RVT
== END ==
PROVIDERS: PCP Family Medicine; Referring Provider Surgery; Visit Provider Surgery
DX: I73.9 Peripheral vascular disease, unspecified (principal)
CPT/HCPCS: 93923; 93926

== ENCOUNTER 2020-01-01 12:01 | Day surgery (SDC) | payer MEDICARE, OTHER, SELFPAY ==
[2019-12-10 15:07] VITALS: BMI 32.7
[2020-01-01] VITALS (7 sets, daily range): BP systolic 118–129; BP diastolic 80–87; PULSE 69–78; RESP 16–20; TEMP 36.3–36.6; O2SAT 92–98; BMI 32.1
[2020-01-01] MEDS: Lactated Ringers 1,000 ML 100 ML IV (12:43)
[2020-01-01 12:56] LABS: Bedside Glucose 138 mg/dL (70-110)
--- NOTE | 2020-01-01 14:28 | HP.PCM_ITS ---
History and Physical Date of Admission: 01/01/20 Intake Vital Signs 11/12/19 Height 5 ft 7 in 11/12/19 Weight: 206 lb 11/12/19 BMI 32.2 Intake Visit Reasons: LEFT KNEE Allergies ciprofloxacin [From Cipro] Allergy (Verified 10/28/19 09:06) Swelling ciprofloxacin HCl [From Cipro] Allergy (Verified 10/28/19 09:06) hand Swelling Sulfa (Sulfonamide Antibiotics) Allergy (Verified 10/28/19 09:06) Unknown Medications Albuterol Inhaler [Ventolin Hfa] 1 - 2 puff INHALATION Q4H PRN PRN 12/25/13 [History Confirmed 11/12/19] Carvedilol [Coreg (Beta Sterling)] 6.25 mg PO BID 12/25/13 [History Confirmed 11/12/19] Nitroglycerin (INPATIENT USE) [Nitrostat] 0.4 mg SUBLINGUAL Q5M PRN 12/25/13 [History Confirmed 11/12/19] Ramipril [Altace] 10 mg PO BID 12/25/13 [History Confirmed 11/12/19] fluticasone propionate 50 mcg/actuation nasal spray,suspension 50 mcg INTRANASAL QDAY PRN 06/25/17 [History Confirmed 11/12/19] aspirin 81 mg tablet,delayed release 81 mg PO QDAY 08/14/17 [History Confirmed 11/12/19] atorvastatin 80 mg tablet 80 mg PO QHS tab 08/14/17 [History Confirmed 11/12/19] amlodipine 5 mg tablet 5 mg PO QDAY #90 tab 09/03/18 [Rx Confirmed 11/12/19] ipratropium 0.5 mg-albuterol 3 mg (2.5 mg base)/3 mL nebulization soln 3 ml INHALATION Q4HWA.RT PRN box 09/03/18 [History Confirmed 11/12/19] apixaban 5 mg tablet 5 mg PO BID #180 tab 08/27/19 [Rx Confirmed 11/12/19] budesonide-formoterol HFA 160 mcg-4.5 mcg/actuation aerosol inhaler 2 puff INHALATION Q12H #3 device 09/24/19 [Rx Confirmed 11/12/19] isosorbide mononitrate 30 mg tablet,extended release 24 hr mg PO 10/28/19 [History Confirmed 11/12/19] [facility] Social History (Updated 11/12/19 @ 10:[address] Sage Russell DO) Smoking Status: Former smoker pack-years: 73 how long ago did patient quit smokin years ago second hand exposure: No alcohol intake: current alcohol intake frequency: holidays/special occasions only Alcohol type: beer substance use type: does not use caffeine: Yes Type: carbonated beverages Number of servings: 1 HPI LEFT KNEE: Chief Complaint: Referral from Breanna Ribera left knee pain Details: Parts of this documentation were recorded by a scribe, this documentation accurately reflects the service provided and the decisions made by me, Sage Russell DO 11/12/19 0404. MACIE NAVA is a 73 year old M here today for left knee pain, he has had this pain since July it did come on rapidly denies any injury or precedent activity changes and changes in activity he saw a PA at [facility] who did xrays, sent to PT and had several sessions for about a month in addition to a steroid injection (end of aug) and neither was helpful. He did have a CT as well because he is unable to have an MRI due to his pacemaker this was not a CT arthrogram and it demonstrated some arthritic changes. Patient is ambulating with an antalgic gait, he has difficulty with sit to stand and now he has back pain from his gait changes. Patient denies any bracing. Denies numbness, tingling or other associated symptoms. He has all over pain but the worst is medial with shooting pain in the anterior leg with ambulation. Patient does take an anticoagulant (eliquis) as a preventive blood clot measure, denies ever having. He has used Tramdol for pain prn. Patient does have painful popping and sensation of instability. Patient does have history of CABG as well as right femoral bypass and left femoral stenting. Ortho Exam Left Knee Skin/Wound: Yes CDI, No ecchymosis, No erythema, No swelling Homans Sign: No Knee ROM: No ROM-Extension -20 to 0 (20), No ROM-Flexion 0-140 (120) Examination: Yes med jt line tenderness, No Lat jt line tenderness, Yes Obey's Test Stability: NML: Anterior Drawer, NML: Posterior Drawer, NML: Valgus 30, NML: Varus 30 Apprehension with Lateral Translation: No Patella Grind: Yes KNEE: synovial hypertrophy with faint joint effusion General: Alert and oriented x3 no acute distress Psych: Mood appropriate cooperative Neurologic neurovascular intact left lower extremity intact sensation light touch no gross motor or sensory deficits Vascular 1 out of 4 symmetric pedal pulses Supplemental Info 07/21/2019 x-ray left knee and CT 08/21/2019 left knee: Degenerative changes tricompartmental mild Assessment & Plan Problems 1. Primary osteoarthritis of left knee M17.12 2. Derangement of meniscus of left knee M23.307 Plan Educated on the knee and explained that he has OA of the knee, and he has signs of meniscus tear that may be causing his painful lack of extension and instability. His options are knee arthroscopy for meniscus debridement and evaluation of the rest of the knee since he cannot get an MRI. He does wish to proceed surgically. He will need clearance from his wire stripper, he has had coronary and femoral bypass and left femoral stent. We will need to coordinate anticoagulant being stopped prior to surgery (would prefer 3-day holiday of Eliquis, and 7-day holiday of aspirin prior to surgery )or bridged based on what wire stripper recommends. In addition I would like to get permission from vascular surgeon who performed stent to use a tourniquet on the left leg. Even if permission granted will attempt without however will not be able to perform surgery if bloody field. Reviewed the pre-operative plans with the patient. Risks and benefits of the procedure were fully explained, including but not limited to infection, neurovascular injury, continued pain, arthritis, stiffness, need for further surgery, re-injury, DVT, PE, general risks of anesthesia, and loss of limb or life. The patient understands all the risks and does wish to proceed with written consent. Follow up post op or sooner if pain, swelling, numbness or associated symptoms, or concerns develop. All questions answered. Patient in agreement of plan. Reviewed with patient again that since we cannot use a tourniquet after consultation with vascular surgeon proceed however if come into a bleeding situation this would affect her visualization and cause us to have to terminate the surgery, he understands this risks and does wish to proceed Coding Level of Care Code 81193 Diagnoses Primary osteoarthritis of left knee M17.12 ??Osteoarthritis type: primary Derangement of meniscus of left knee M23.307 I have re-examined the patient. There are no clinical changes since date of exam Procedure Criteria COVID Risk Discussion: [In addition to standard risk risk of COVID-19 exposure and potential consequences including respiratory failure ventilation and patient wishes to assume this risk secondary to ongoing progressive worsening symptoms that are limiting activities of daily living.]
[2020-01-01] MEDS: Cefazolin 2 GM in 0.9% Normal Saline 100 ML IV (14:59)
[2020-01-01] MEDS: Bupiv/Epi 0.5% Mpf 30 ML Vial (15:20)
[2020-01-01] MEDS: morphine PF (epidural) 5 MG/10 ML Vial (15:30)
[2020-01-01] MEDS: MethylPREDNISolone Acetate 80 MG/ML Vial (15:30)
[2020-01-01] MEDS: Bupivacaine Mpf 0.5% 30 ML VIAL (15:30)
[2020-01-01] MEDS: Epinephrine (1 mg/ml) 1 MG/ML VIAL (15:30)
--- NOTE | 2020-01-01 15:39 | PCM.DC.ORTHO ---
Discharge Diet: No Restrictions Weight Bearing Status: Weight bearing as tolerated Additional Instructions: Ice and elevate next 72 hours .keep dressing on clean and dry for 48 hours then may remove begin showering daily but do not submerge in tub or pool. After shower may apply Band-Aids . Encourage knee range of motion weightbearing as tolerated, use crutches until confident in knee then may discontinue. No strenuous activity. When not ambulating keep iced and elevated next 72 hours. Allergies/Adverse Reactions: Allergies ciprofloxacin [From Cipro] Allergy (Verified 01/01/20 12:08) Swelling ciprofloxacin HCl [From Cipro] Allergy (Verified 01/01/20 12:08) hand Swelling Sulfa (Sulfonamide Antibiotics) Allergy (Verified 01/01/20 12:08) Unknown Medications to take at Discharge Albuterol Inhaler [Ventolin Hfa] 1 - 2 puff INHALATION Q4H PRN PRN 12/25/13 Carvedilol [Coreg (Beta Sterling)] 6.25 mg PO BID 12/25/13 Nitroglycerin (INPATIENT USE) [Nitrostat] 0.4 mg SUBLINGUAL Q5M PRN 12/25/13 Ramipril [Altace] 10 mg PO BID 12/25/13 fluticasone propionate 50 mcg/actuation nasal spray,suspension 50 mcg INTRANASAL QDAY PRN 06/25/17 atorvastatin 80 mg tablet 80 mg PO QHS tab 08/14/17 amlodipine 5 mg tablet 5 mg PO QDAY #90 tab 09/03/18 ipratropium 0.5 mg-albuterol 3 mg (2.5 mg base)/3 mL nebulization soln 3 ml INHALATION Q4HWA.RT PRN box 09/03/18 apixaban 5 mg tablet 5 mg PO BID #180 tab 08/27/19 budesonide-formoterol HFA 160 mcg-4.5 mcg/actuation aerosol inhaler 2 puff INHALATION Q12H #3 device 09/24/19 isosorbide mononitrate 30 mg tablet,extended release 24 hr 30 mg PO BID 10/28/19 tramadol 50 mg tablet 50 mg PO Q8H PRN #21 tab 12/24/19 Acetaminophen [Tylenol Extra Strength] 1,000 mg PO Q6H PRN #30 tab 01/01/20 Oxycodone [Oxyir] 5 mg PO Q4H PRN PRN #60 tablet 01/01/20 The following prescriptions were given: Oxycodone [Oxyir] 5 mg PO Q4H PRN PRN #60 tablet PRN Reason: Pain Score 6-10/10 Transmission Status: Sent to [facility] Acetaminophen [Tylenol Extra Strength] 1,000 mg PO Q6H PRN #30 tab Transmission Status: Pending to [facility] Primary Care Physician: Fito Velez MD [Primary Care Provider] - Test Results: Test results from this visit will be discussed in further detail at your follow-up appointment, if applicable. Please Follow Up With: Sage Russell DO - 2 weeks
--- NOTE | 2020-01-01 15:40 | OP.PCM_ITS ---
Report of Operation Date of Procedure: 01/01/20 Description of Surgical Findings:: Preop diagnosis: Left knee mechanical knee pain Postoperative diagnosis: Grade 4 cartilage wear medial femoral condyle trochlea and medial tibial plateau Procedure: Arthroscopic chondroplasty medial and patellofemoral compartment Anesthesia: General Estimated blood loss: 5 mL Tourniquet time: 0 minutes Complications: none Indication for procedure: This is a 74-year-old male patient who has had ongoing mechanical symptoms of his knee who was unable to have MRI secondary to pacemaker who only had mild degenerative changes on imaging who has had ongoing pain despite conservative treatment and did the patient did wish to proceed with an elective arthroscopic surgery to attempt to alleviate the symptoms. Risk benefits and alternatives of the procedure were reviewed including risk of bleeding infection nerve artery tissue damage need for further surgery continued pain and expected postoperative course. Procedure: The patient was met in the preoperative holding area. The operative extremity was identified by both patient and physician and family and marked. Patient was brought back to the operating room on a wheeled cart and transferred to the operating table in the supine position. Anesthesia was started. A well- padded tourniquet was placed on the operative extremity. A lower extremity leg stern was secured to the operative extremity. The contralateral extremity was well-padded and the end of the bed was flexed to 90 degrees. The patient was prepped and draped in the usual sterile fashion. A timeout was called to ensure the proper patient, procedure, and extremity were being contemplated. 0.5% Cody gabriela with epinephrine was injected into the planned incisional areas under the skin only. An Esmarch was used to exsanguinate the extremity and the tourniquet was inflated. An 11 blade scalpel was used to make a stab incision in the anterior lateral portal. The arthroscope was inserted into the intercondylar notch and inflow and outflow tubes were attached. Arthroscopic visualization began. The medial compartment was entered. An 18-gauge spinal needle was used to establish the placement for anterior medial portal. An 11 blade scalpel was used to make a stab incision. Blunt probe was inserted followed by a meniscal probe. Immediately there was noted to be grade 4 cartilage wear of the medial femoral condyle nearly diffuse and small area of grade 4 of the medial tibial plateau there was loose cartilage flaps which were debrided with a 3 5 full- radius shaver the medial meniscus was evaluated and there was no tearing the ACL was found to be intact. The lateral compartment was entered free of meniscal or cartilage pathology The arthroscope was switched to the medial portal to complete the procedure. The medial and lateral gutters were inspected and were free of loose bodies. The patellofemoral joint was inspected grade 4 cartilage wear of the trochlea diffusely. There was good patellar tracking. The knee was thoroughly irrigated and drained. An intra-articular injection with 5 cc 0.5% Marcaine plain 4 mg of morphine and 40 mg of Depo-Medrol was injected intra- articularly. The arthroscope was removed the portals were closed with 3-0 nylon arthroscopic stitches. Followed by Xeroform 4 x 4's ABDs web roll and an Abhi wrap. The tourniquet was let down and the drapes were removed. All counts were correct. The patient was brought back to the PACU in stable condition.
[2020-01-01 16:16] LABS: Bedside Glucose 113 mg/dL (70-110)
== END 2020-01-01 17:25 | disposition home or self-care (01) ==
LOC: SDC 12:02 → AC 12:02
PROVIDERS: Anesthesiology; PCP Family Medicine; Referring Provider Orthopaedic Surgery; Visit Provider Orthopaedic Surgery
PROC: (CPT 29870; principal; 2020-01-01 14:40)
DX: M17.12 Unilateral primary osteoarthritis, left knee (principal); M23.307 Other meniscus derangements, unspecified meniscus, left knee; E11.9 Type 2 diabetes mellitus without complications; Z79.01 Long term (current) use of anticoagulants; Z79.82 Long term (current) use of aspirin; Z87.891 Personal history of nicotine dependence; Z88.1 Allergy status to other antibiotic agents; Z88.2 Allergy status to sulfonamides; Z95.0 Presence of cardiac pacemaker; Z95.1 Presence of aortocoronary bypass graft; I10 Essential (primary) hypertension; G47.30 Sleep apnea, unspecified
CPT/HCPCS: 01400; 29880; 82962; 87635; G2023; J7120; J2405; U0003

== ENCOUNTER → 2020-01-14 08:55 | Outpatient (CLI) | payer MEDICARE, OTHER, SELFPAY ==
[2020-01-01 12:25] VITALS: BMI 32.1
--- NOTE | 2020-01-14 08:56 | CDU_ITS ---
Reason For Study: STENOSIS Rt. Velocities/BP Lt. Velocities/BP Prox CCA 61.4/13.1 cm/sec. Prox CCA 55.7/10.4 cm/sec. Mid CCA 51.5/14.2 cm/sec. Mid CCA 54.9/15.6 cm/sec. Dist CCA 44.9/14.2 cm/sec. Dist CCA 49.6/13.0 cm/sec. Prox ICA 81.2/20.8 cm/sec. Prox ICA 225.9/54.6 cm/sec. Mid ICA 73.5/18.6 cm/sec. Mid ICA 105.7/18.8 cm/sec. Dist ICA 65.4/20.5 cm/sec. Dist ICA 107.6/27.2 cm/sec. Rt. ICA/CCA = 81.2/61.4=1.3. Lt. ICA/CCA = 225.9/55.7=4.05. Prox ECA 71.3/15.3 cm/sec. Prox ECA 96.5/10.6 cm/sec. Rt. Vert. 28.4/12.0 cm/sec. Lt. Vert. 28.2/8.4 cm/sec. Right Extracranial There is intimal thickening but no significant atherosclerotic plaque noted in the right common carotid artery. There is heterogeneous, irregular atherosclerotic plaque noted in the right internal carotid artery. There is no significant atherosclerotic plaque noted in the right external carotid artery. Antegrade flow is noted in the right vertebral artery. Left Extracranial There is heterogeneous, smooth atherosclerotic plaque noted in the left common carotid artery. There is heterogeneous, irregular atherosclerotic plaque noted in the left internal carotid artery. The atherosclerotic plaque causes acoustic shadowing. The left internal carotid artery is very tortuous. There is no significant atherosclerotic plaque noted in the left external carotid artery. Antegrade flow is noted in the left vertebral artery. Interpretation Summary Irregular calcific plaque with shadowing at the proximal right internal carotid artery with less than 50% stenosis. <50% stenosis right external carotid Irregular calcific plaque at the proximal left internal carotid artery with 50 to 69% stenosis .findings may be closer to the upper limits of this range) <50% stenosis left external carotid Patent and antegrade vertebrals bilaterally I do not have an available previous examination for comparison Ordering Physician: Yanick Singh Referring Physician: Fito Velez Performed By: Sharri Clement RDCS, RVT
== END ==
PROVIDERS: PCP Family Medicine; Referring Provider Surgery; Visit Provider Surgery
DX: I65.21 Occlusion and stenosis of right carotid artery (principal); I77.9 Disorder of arteries and arterioles, unspecified
CPT/HCPCS: 93880

== ENCOUNTER → 2020-03-09 17:46 | Outpatient (CLI) | payer MEDICARE, OTHER, SELFPAY ==
[2020-02-18 10:22] VITALS: BMI 32.2
[2020-03-07 10:57] VITALS: BMI 32.2
--- NOTE | 2020-03-09 17:47 | CT_ITS ---
CT of the left lower extremity INDICATION: Preop CHIKIS procedure TECHNIQUE: CT of the left lower extremity was performed in the axial projection without contrast scanning from the left hip to the ankle followed by sagittal and coronal reconstructions. Radiographic technique was optimized to limit patient radiation dose. DLP was 1185.58 FINDINGS: No evidence for acute fracture or dislocation of the left hip. There is mild acetabular spurring and mild narrowing of the superolateral compartment of the joint. There is narrowing of the medial compartment of the femoral tibial shaft with mild spurring of medial tibial condyle. The visualized portions of the tibial and fibular shafts are intact. Incidental finding of left superficial femoral/popliteal stent CT/Extremity Lower without Contra IMPRESSION: Mild degenerative changes of the left hip and the knee. No acute fracture or other significant bony pathology Electronically Signed: Fito Dinh MD at 19:41 EDT , Service support ,
== END ==
PROVIDERS: PCP Family Medicine; Referring Provider Orthopaedic Surgery; Visit Provider Orthopaedic Surgery
DX: M17.12 Unilateral primary osteoarthritis, left knee (principal)
CPT/HCPCS: 73700

== ENCOUNTER → 2020-03-26 14:27 | Outpatient (CLI) | payer MEDICARE, OTHER, SELFPAY ==
[2020-03-19 08:07] VITALS: BMI 32.2
[2020-03-26 15:56] LABS: Prothrombin Time (Protime)PT. 12.7 SECONDS (11.7-14.9)
== END ==
PROVIDERS: Anesthesiology; PCP Family Medicine; Referring Provider Orthopaedic Surgery; Visit Provider Orthopaedic Surgery
DX: Z01.812 Encounter for preprocedural laboratory examination (principal)
CPT/HCPCS: 83735; 85610; 85730; 86850; 86900; 86901; 87081

== ENCOUNTER 2020-03-30 12:18 | Observation (INO) | payer MEDICARE, OTHER, SELFPAY ==
[2020-02-18 10:22] VITALS: BMI 32.2
[2020-03-19 08:07] VITALS: BMI 32.2
--- NOTE | 2020-03-23 16:04 | EKG12_ITS ---
Test Reason : PRE-OP Blood Pressure : / mmHG Vent. Rate : 071 BPM Atrial Rate : 071 BPM P-R Int : 124 ms QRS Dur : 156 ms QT Int : 486 ms P-R-T Axes : 051 -88 082 degrees QTc Int : 528 ms Atrial-sensed ventricular-paced rhythm Abnormal ECG Confirmed by MASON MEYER, SHARRI ([id number]), scientific publications editor WHITNEY SUÁREZ ([id number]) on 03/24/2020 11:15:47 AM Referred By: Sage Russell Confirmed By:SHARRI CUEVAS MD
[2020-03-30] VITALS (14 sets, daily range): BP systolic 81–148; BP diastolic 58–81; PULSE 59–96; RESP 16–20; TEMP 36.1–37.1; O2SAT 92–99; BMI 32.6
[2020-03-30] MEDS: Scopolamine 1mg/72hr Patch 1 PATCH TRANSDERM. (06:29)
[2020-03-30] MEDS: Acetaminophen 500 MG Tablet 1000 MG PO ×3 (06:31→21:41)
[2020-03-30] MEDS: Gabapentin 600 MG Tablet PO (06:31)
[2020-03-30] MEDS: Lactated Ringers 1,000 ML 100 ML IV (07:10)
[2020-03-30] MEDS: Cefazolin 2 GM in 0.9% Normal Saline 100 ML IV (07:39)
--- NOTE | 2020-03-30 07:48 | HP.PCM_ITS ---
History and Physical Date of Admission: 03/30/20 Intake Vital Signs 03/19/20 BMI 32.2 Intake Visit Reasons: left knee Chief Complaint: left knee Accompanied by: Is patient in pain?: Yes Allergies ciprofloxacin [From Cipro] Allergy (Verified 03/08/20 10:48) Swelling ciprofloxacin HCl [From Cipro] Allergy (Verified 03/08/20 10:48) hand Swelling Sulfa (Sulfonamide Antibiotics) Allergy (Verified 03/19/20 09:56) Unknown Medications Albuterol Inhaler [Ventolin Hfa] 1 - 2 puff INHALATION Q4H PRN PRN 12/25/13 [History Confirmed 03/19/20] Carvedilol [Coreg (Beta Sterling)] 6.25 mg PO BID 12/25/13 [History Confirmed 0 03/19/20] Nitroglycerin (INPATIENT USE) [Nitrostat] 0.4 mg SUBLINGUAL Q5M PRN 12/25/13 [History Confirmed 03/19/20] Ramipril [Altace] 10 mg PO BID 12/25/13 [History Confirmed 03/19/20] fluticasone propionate 50 mcg/actuation nasal spray,suspension 50 mcg INTRANASAL QDAY PRN 06/25/17 [History Confirmed 03/19/20] atorvastatin 80 mg tablet 80 mg PO QHS tab 08/14/17 [History Confirmed 03/19/20] ipratropium 0.5 mg-albuterol 3 mg (2.5 mg base)/3 mL nebulization soln 3 ml INHALATION Q4HWA.RT PRN box 09/03/18 [History Confirmed 03/19/20] apixaban 5 mg tablet 5 mg PO BID #180 tab 08/27/19 [Rx Confirmed 03/19/20] isosorbide mononitrate 30 mg tablet,extended release 24 hr 30 mg PO BID 10/28/19 [History Confirmed 03/19/20] Acetaminophen [Tylenol Extra Strength] 1,000 mg PO Q6H PRN #30 tab 01/01/20 [Rx Confirmed 03/19/20] tramadol 50 mg tablet 50 mg PO Q6H PRN #20 tab 01/23/20 [Rx Confirmed 03/19/20] amlodipine 5 mg tablet 5 mg PO QDAY tab 02/17/20 [History Confirmed 03/19/20] montelukast 10 mg tablet 10 mg PO DAILY 02/17/20 [History Confirmed 03/19/20] budesonide-formoterol HFA 160 mcg-4.5 mcg/actuation aerosol inhaler 2 puff INHALATION Q12H #3 device 03/08/20 [Rx Confirmed 03/19/20] PFSH Social History (Updated 03/19/20 @ 11:[address] Sage Russell DO) Smoking Status: Former smoker pack-years: 73 how long ago did patient quit smokin years ago second hand exposure: No alcohol intake: current alcohol intake frequency: holidays/special occasions only Alcohol type: beer substance use type: does not use caffeine: Yes Type: carbonated beverages Number of servings: 1 HPI left knee: Details: Parts of this documentation were recorded by a scribe, this documentation accurately reflects the service provided and the decisions made by me, Dr. Sage Russell DO 03/19/20 0801. MACIE NAVA is a 74 year old M here today for left knee IOVERA tx prior to left TKA. Patient continues to have generalized left knee pain. Denies numbness, tingling or other associated symptoms. Does have poping and clicking of the knee. He has limited extension. ROS Musc Reports joint pain, Reports joint swelling, Reports limited joint movement, Denies radiating pain into limb, Reports stiffness, Denies tingling Skin/Breast Denies redness, Denies lesions, Denies rash, Denies skin swelling, Denies unusu al bruising Neuro No tingling Ortho Exam Left Knee Skin/Wound: No ecchymosis, No erythema, No swelling Homans Sign: No Knee ROM: No ROM-Extension -20 to 0 (lacking 40), No ROM-Flexion 0-140 (110) Stability: NML: Anterior Drawer, NML: Laurie, NML: Posterior Drawer, NML: Valgus 0, NML: Valgus 30, NML: Varus 0, NML: Varus 30 Apprehension with Lateral Translation: No Patellar Tilt Normal: Yes Patella Grind: Yes KNEE: no s/sx of infection Office Procedures Iovera Details:: Preoperative diagnosis :left knee osteoarthritis Postoperative diagnosis: Same Procedure: Cryotherapy with Iovera device to anterior femoral cutaneous nerve and 2 branches of the infrapatellar saphenous nerve III nerves in total Description of procedure: Patient was brought back to the procedure room the operative extremity was identified by both patient and physician. The PIP flexion crease was measured to the midpoint of the patella and this distance was divided in 3 resulting in 10 cm location proximal to the midpoint of the patella. This line was extended medial and lateral to the extent of the edges of the patella. This was our treatment line for the anterior femoral cutaneous nerve. A second treatment line was made 5 cm medial to the inferior pole of the patella and 5 cm distally. The leg was prepped with alcohol and Betadine. Lidocaine with epi was used along the treatment lines. Using the Iovera device treatment lines were treated with 1 minute cycles. Reproduction of paresthesias was monitored in the area of nerve distribution. Once all 3 nerves were treated across the 2 treatment lines patient was cleaned and a light dressing with 4 x 4 and Abhi wrap was applied. Patient tolerated the procedure without complication. Supplemental Info 07/21/2019 x-ray left knee and CT 08/21/2019 left knee: Degenerative changes tricompartmental mild Assessment & Plan Problems 1. Primary osteoarthritis of left knee M17.12 Plan Patient educated on the IOVERA procedure and wishes to proceed with signing consent. Treatment preformed without any concerns. Instructed to stop the Eliquis 5 days prior and NSAIDs 7 days prior to surgery. We would not be able to use tourniquet secondary to his left lower extremity stenting Follow up 2 weeks post op or sooner if pain, swelling, numbness or associated symptoms, or concerns develop. All questions answered. Patient in agreement of plan. Orders Orders: Iovera Today M25.569 Coding Level of Care Code Attention Assistant Director Of Admissions Diagnoses Primary osteoarthritis of left knee M17.12 I have re-examined the patient. There are no clinical changes since date of exam Procedure Criteria Procedure Type: Elective COVID Risk Discussion: The surgeon/proceduralist and patient have discussed in detail the risk of exposure to and/or potential harm posed by the COVID-19 virus with having a surgery/procedure at this time versus the risk of delaying the surgery/procedure. It is not possible to know either the risk of delaying the surgery or procedure or chance of getting an infection with perfect accuracy, but a joint decision was made between the patient and the surgeon/proceduralist to proceed at this time with the scheduled surgery/procedure as indicated on the consent form.
[2020-03-30] MEDS: dexAMETHasone 10 MG/ML Vial IV (08:45)
[2020-03-30] MEDS: 0.9% Normal Saline (Pres. free 10 ML Vial (09:00)
[2020-03-30] MEDS: Bupivacaine Mpf 0.5% 30 ML VIAL (09:00)
[2020-03-30] MEDS: Epinephrine (1 mg/ml) 1 MG/ML VIAL (09:00)
[2020-03-30] MEDS: Betamethasone/Betamethasone 30 MG/5 ML Vial (09:00)
--- NOTE | 2020-03-30 10:13 | RAD_ITS ---
STUDY: X-RAY - LEFT KNEE REASON FOR EXAM: Male, 74 years old. Post op left knee replacement TECHNIQUE: AP and lateral view(s) of the knee. COMPARISON: None. FINDINGS: Normal visualized distal femur. Normal visualized proximal tibia and fibula. Normal proximal tibiofibular articulation. The patient is status post left total knee replacement. There is good alignment. Postoperative soft tissue changes. A vascular stent is seen in the superficial femoral artery and popliteal artery. RAD/Knee 1 or 2 Views IMPRESSION: Status post total knee replacement. There is better alignment. Postoperative soft tissue changes. Vascular stent seen in the superficial femoral artery and popliteal artery. Electronically Signed: Ramone Mcmahon, at 11:29 EDT , Service support ,
--- NOTE | 2020-03-30 10:21 | OP.PCM_ITS ---
Report of Operation Date of Procedure: 03/30/20 Description of Surgical Findings:: Preoperative diagnosis: Left knee DJD Postoperative diagnosis: Same Procedure: Left total knee arthroplasty CT guided Robotic Assisted Implant: Hermes triathlon cemented femoral component size 4, press-fit tibial baseplate size 5, cemented asymmetric patella size 35 polyethylene X3 size 9 CS Anesthesia: Spinal with adductor canal block Tourniquet time: 0 min Complications: None Condition: Stable to PACU Estimated blood loss: 200 cc Indication for procedure: This is a 74-year-old male with long standing degenerative joint disease of the knee who has failed conservative treatment and wished to proceed with elective total knee arthroplasty. He does have a stent on the left lower extremity and did not have clearance for tourniquet use showed no tourniquet will be used, risk benefits and alternatives were reviewed inclu ding; risk of bleeding, infection, nerve artery and tissue damage, continued pain, postoperative stiffness, venous thromboembolism, need for postoperative rehabilitation, mechanical feel to the knee, and expected postoperative course. The operative CT and templating was performed with component sizing Procedure: The patient was met in the preoperative holding area. The operative extremity was identified by both patient and physician and was marked. Patient was met by anesthesia. An adductor canal block was placed by anesthesia postoperatively the patient was brought back to the operating room on a wheeled cart and transferred to the operating table in the supine position. Anesthesia was started. A well-padded tourniquet was placed on the operative extremity. The patient was prepped and draped in the usual sterile fashion. A timeout was called to ensure the proper patient procedure and extremity were being contemplated. A 10 blade scalpel was used to make a midline incision down through the skin and subcutaneous tissue. Skin retractors placed. Bovie was used to perform meticulous hemostasis. full-thickness flaps were elevated medial and lateral along the joint capsule. A deep blade scalpel was used to perform a medial parapatellar arthrotomy. The knee was brought to full extension. A Bovie was used to release the soft tissues off the most proximal aspect of the medial tibial plateau a three-quarter inch curved osteotome was also used for this process. The infrapatellar fat pad was excised. The fat pad was excised partially anterior lateral portion the anterior medial was elevated from the femur. At this point our intra-articular femoral array was placed of a 45 degree angle proximal and posterior to the medial epicondyle. Our tibial array was placed greater than 1 hands breath below the incision at a 20 degree angle stab incisions were used for this case were attached and checked with the robotic software. Tourniquet was let down. At this point registration rodríguez were taken throughout the knee as well as checkpoints placed in the femur and tibia once the knee was registered then tensioned the medial and lateral ligaments in extension and 90 degrees of flexion. We then used these numbers to adjust our components within parameters to balance the knee in both flexion and extension once this was done on our monitor we then proceeded with using the robotic arm to make our tibial plateau cut and anterior posterior and chamfer cuts on the femur we then trialed and achieved the desired plan with a well- balanced knee. Lug holes were drilled in the femur the tibia preparation was completed with a fin punch and the patella was prepared by first using a caliper to ensure sufficient bone stock and a patellar reamer to remove the desired a mount of bone locals were drilled for an asymmetric poly-. We then brought the knee through range of motion with excellent patellar tracking. We thoroughly irrigated the knee with a trial components were removed a posterior capsular injection with her standard cocktail was performed the aqua Mantis was also used to aid in hemostasis. Betadine rinse was allowed to sit and washed out components were cemented. Aricept rinse was then used followed by several more rate liters of irrigation after it was allowed to sit. Joint capsule was closed with #1 Ethibond [id number] followed by Vicryl in the subcutaneous tissues staple in the skin arrays and checkpoints were removed prior to closure all counts were correct stab incisions were closed with a stable standard dressing in the form of Mepilex for the main incision Xeroform 4 x 4 and Tegaderm over pin site holes. Thigh-high CHETAN hose applied over top of dressing. Patient tolerated the procedure well and was directed to PACU in stable condition no intraoperative complications At the end of the case during the closure of the joint capsule there was noted that someone picked up a sponge off of the floor and put her on a back basin that was in the sterile area the pharmacy technician assistant may have touched the contaminated sponge at this point the wound was thoroughly irrigated with several liters of irrigation Betadine and Aricept and repeated with irrigation prior to closure
[2020-03-30 10:56] LABS: Bedside Glucose 153 mg/dL (70-110)
--- NOTE | 2020-03-30 11:02 | SUR.PHASEI ---
PPP with doppler left lower extrem cool to touch, right lower extrem warm palpable . +1 edema to right lower extrem
[2020-03-30] MEDS: Lactated Ringers 1,000 ML 125 ML IV (11:20)
[2020-03-30] MEDS: Cefazolin 1 GM/50 ML BAG IV ×2 (11:38→19:18)
--- NOTE | 2020-03-30 12:18 | PCM.HP.BLA ---
History and Physical Date of Admission: 03/30/20 Intake Vital Signs 03/22/20 Height 6 ft 1 in 03/22/20 Weight: 165 lb 03/22/20 BMI 21.7 03/22/20 BMI 24.5 Intake Visit Reasons: RIGHT KNEE Accompanied by: Spouse Is patient in pain?: Yes Pain scale (1-10): 5 Allergies Penicillins Allergy (Verified 03/22/20 15:29) Hives Medications Hydrocodone/Acetaminophen [[place] 5-325 Tablet] 1 ea PO 4X/DAY #20 tab 03/20/20 [Rx Confirmed 03/22/20] [facility] Social History (Updated 03/22/20 @ 16:[address] Sage Russell DO) household members: spouse, children housing: house Smoking Status: Never smoker alcohol intake: current what type of physical activity do you participate in: none do you feel safe at home: Yes HPI RIGHT KNEE: Details: Parts of this documentation were recorded by a scribe, this documentation accurately reflects the service provided and the decisions made by me, Dr. Sage Russell DO 03/22/20 1523. BIANCA NAVAS is a 33 year old M here today to establish as a new patient in regards to his right patella. Patient fell off of a ladder while working in his barn onto concrete. DOI: 01/18/2020 at 5pm. Patient states he landed on his feet, denies head injury. Has been applying ice packs with some relief. Patient has been taking Ibruprofen q6-7hrs. Taking Vicodin prn, prescribed from [facility]. ROS Const Reports system reviewed and no additional complaints, except as docu, Denies chills, Denies fatigue, Denies fever(s), Denies weakness Card Reports system reviewed and no additional complaints, except as docu, Denies chest pain, Denies shortness of breath Resp Denies shortness of breath GI Reports system reviewed and no additional complaints, except as docu, Denies constipation, Denies incontinent of stools, Denies loose stools, Denies nausea, Denies vomiting Reports system reviewed and no additional complaints, except as docu, Denies urinary incontinence Musc Reports system reviewed and no additional complaints, except as docu, Reports joint pain, Reports joint swelling, Denies numbness, Denies stiffness, Denies tingling Skin/Breast Reports system reviewed and no additional complaints, except as docu, Denies dry skin, Denies redness, Denies lesions, Denies new lesions, Denies non-healing lesions, Denies itching, Denies rash, Denies skin ulcer, Denies sores, Denies wounds Neuro No numbness, No tingling, No weakness Endo Denies fatigue Ortho Exam Right Knee Date of injury: 03/20/20 Skin/Wound: Yes ecchymosis, Yes swelling KNEE: developing Fracture blistering on medial knee abrasion 2cmSuperficial without sign of infection Large joint effusion with hematoma Supplemental Info 03/20/2020 X-ray right knee: Displaced transverse patella fracture Assessment & Plan Problems 1. Closed displaced transverse fracture of right patella, initial encounter S82.031A Plan Personally reviewed x-rays and educated patient has a patella fracture. Explained that it is torn all the way through. Discussed and educated he needs surgery to be fixed. Keep using ice packs and keeping leg elevated. No NSAIDs, increases risk of bleeding. Reviewed the pre-operative plans with the patient. Risks and benefits of the procedure were fully explained, including but not limited to infection, neurovascular injury, continued pain, arthritis, stiffness, need for further surgery, re-injury, DVT, PE, general risks of anesthesia, and loss of limb or life. The patient understands all the risks and does wish to proceed with written consent. Explained repair technique.He will have postoperative restrictions Limit on bending the knee, can place weight on it right awayWith the knee in extension only. Will use a [place] brace for a few weeks. All questions answered. Patient in agreement of plan. Will schedule surgery for , 03/25/2020. Coding Level of Care Code Off vis,new,level 3 Diagnoses Closed displaced transverse fracture of right patella, initial encounter S82.031A ??Encounter type: initial encounter ??Fracture morphology: transverse ??Fracture type: closed ??Laterality: right ??Fracture alignment: displaced I have re-examined the patient. There are no clinical changes since date of exam
--- NOTE | 2020-03-30 13:58 | CASEMGMT ---
SALVADOR MENA Assessment Intro role of CM to patient and his friend Sharri who will be caring for him at home. Pt states he lives in one story home, 4 steps into home. patient's friend is available to assist and provide transportation on discharge. Patient is concerned he will not be able to do outpt therapy right away and wished to discuss Home Health. Discussed that PT/OT would see patient and give recommendations on dc needs. SALVADOR MENA did give a list with [facility] and highlighted [facility] as they prefer [facility], and pt lives in [place]. Pt states no outpt therapy has been set up yet by doctor's office. DX: LTKR PCP: Dr. Velez Surgeon: Dr. Morales Pharmacy: [facility] Benefit: yes Living arrangements: one story home, 4 steps into home. Patient was having difficulty ambulating due to knee pain prior to admission. Has concerns re: getting in and out of car and managing steps. DME: walker, cpap. Transportation: Patient DC Goal: home with [facility] DC PLAN: undetermined. PT/OT will see patient this afternoon. Home with outpt therapy in [place] vs Home with [facility]. Orlin MONTILLAN RN ACM
[2020-03-30] MEDS: oxyCODONE 5 MG Tablet PO ×2 (14:20→15:17)
[2020-03-30 15:15] LABS: Bedside Glucose 301 mg/dL (70-110)
[2020-03-30 15:15] LABS: Bedside Glucose 277 mg/dL (70-110)
[2020-03-30] MEDS: Albuterol 2.5 MG/3 ML VIAL.NEB. INHALATION (18:59)
[2020-03-30] MEDS: Budesonide Respules 0.5 MG/2 ML AMPUL.NEB. INHALATION (19:02)
[2020-03-30] MEDS: Carvedilol 6.25 MG Tablet PO (21:41)
[2020-03-30] MEDS: Senna/Docusate Sodium 1 Tablet 2 TABLET PO (21:41)
[2020-03-30] MEDS: Atorvastatin Calcium 80 MG Tablet PO (21:41)
[2020-03-30] MEDS: Ramipril 10 MG Capsule PO (21:41)
[2020-03-31] MEDS: oxyCODONE 5 MG Tablet PO ×3 (00:22→12:50)
[2020-03-31 03:20] VITALS: BP 145/66; PULSE 88; RESP 18; TEMP 36.5; O2SAT 95
[2020-03-31] MEDS: 0.9% Saline Lock 10 ML Syringe IV (03:22)
[2020-03-31] MEDS: Cefazolin 1 GM/50 ML BAG IV (03:23)
[2020-03-31] MEDS: Acetaminophen 500 MG Tablet 1000 MG PO ×2 (05:17→12:50)
[2020-03-31] MEDS: APIXABAN 5 MG TABLET PO (05:17)
[2020-03-31 05:43] LABS: Hematocrit 40.6 % (40-54); Hemoglobin 13.7 g/dL (13.0-16.5); Mean Corp Hgb Conc 33.7 g/dL (32-36); Mean Platelet Vol. 10.7 fl (6.2-12.0); Platelet Count 169 K/mm3 (150-450); RBC Distribution Width CV 13.1 % (11.6-14.6); RBC Distribution Width SD 42.9 fl (35.1-43.9); Red Blood Count 4.56 M/mm3 (4.6-6.2); White Blood Count 23.3 K/mm3 (4.4-11.0)
[2020-03-31 06:09] LABS: Anion Gap 5 (5-15); BUN 18 mg/dL (7-18); BUN/Creat Ratio 15.8 RATIO (10-20); Calcium,Total 8.4 mg/dL (8.5-10.1); Chloride 104 mmol/L (98-107); Creatinine, Serum 1.14 mg/dL (0.70-1.30); EST Glomerular Filtration Rate 66 mL/min (>60); Est Glom Filt Rate - Afr Amer 80 mL/min (>60); Estimated Creatinine Clearance 51.54 ml/min; Glucose 226 mg/dL (74-106); Potassium 4.2 mmol/L (3.5-5.1); Sodium Level 137 mmol/L (136-145)
[2020-03-31 07:05] VITALS: PULSE 88; RESP 19
[2020-03-31] MEDS: Budesonide Respules 0.5 MG/2 ML AMPUL.NEB. INHALATION (07:16)
[2020-03-31] MEDS: Ipratropium/Albuterol Sulfate 3 ML AMPUL.NEB INHALATION (07:16)
[2020-03-31] MEDS: Ramipril 10 MG Capsule PO (07:30)
[2020-03-31] MEDS: Carvedilol 6.25 MG Tablet PO (07:30)
[2020-03-31] MEDS: amLODIPine 5 MG Tablet PO (07:30)
[2020-03-31] MEDS: Senna/Docusate Sodium 1 Tablet 2 TABLET PO (07:31)
[2020-03-31] MEDS: Montelukast 10 MG Tablet PO (07:31)
[2020-03-31 07:36] VITALS: BP 151/77; PULSE 89; RESP 16; TEMP 36.4; O2SAT 94
--- NOTE | 2020-03-31 09:49 | CASEMGMT ---
SALVADOR MENA in to discuss discharge planning with patient. Patient not sure if he wants HHC vs outpatient therapy. SALVADOR MENA explained benefits of outpatient therapy if he is able to get in and out of house safely and has transportation. Patient states he has transportation. Patient also states that he was attending outpatient therapy at [facility] prior to surgery but is unsure if he has appt scheduled for after surgery. SALVADOR MENA called [facility] and patient has confirmed appt for 04/02/20 at 1100. SALVADOR MENA updated patient regarding appointment at [facility]. Patient voice understanding.
[2020-03-31 10:54] VITALS: BP 137/74; PULSE 80; RESP 16; TEMP 36.7; O2SAT 92
--- NOTE | 2020-03-31 12:11 | DS.PCM_ITS ---
Discharge Date and Diagnosis Date of Admission: 03/30/20 Date of Discharge: 03/31/20 - Secondary Discharge Diagnosis Chronic Problems: Chronic Problems (Last Reviewed 03/08/20 @ 10:49 by Sole Tran) Atrial flutter (Chronic) Erectile dysfunction (Chronic) Hyperlipidemia, unspecified (Chronic) Essential (primary) hypertension (Chronic) Presence of biventricular implantable cardioverter-defibrillator (ICD) (Chronic 04/22/12) Presence of stent in coronary artery (Chronic) x7 CX, PL, PDA of RCA Atherosclerotic heart disease of [place] coronary artery without angina pectoris (Chronic) DEL ROSARIO side to side to the diagonal and end to side of anterior descending, SVG to PL of RCA 05/20 Aortocoronary bypass status (Chronic ~05/17/12) CABG x3-DEL ROSARIO side to side to the diagonal and end to side of anterior descending, SVG to posterolateral of RCA 05/20 Carotid artery disease (Chronic) Shortness of breath (Chronic) Ischemic cardiomyopathy (Chronic) Peripheral vascular disease (Chronic) Hospital Course and Treatment Operations: None, total knee replacement Summary of Care Provided: The patient is a 74 year old M who has long history of degenerative joint disease to the knee who has failed conservative treatment and wished to undergo elective total knee arthroplasty. Patient underwent the aformentioned procedure on the admission date without any intraoperative complications. Patient did receive pre-and postoperative antibiotics which were discontinued within 23 hours postoperatively. Patient did receive [spinal anesthesia as well as an adductor canal block postoperatively]. pain was controlled with IV and transition to p.o. pain medication Patient will be discharged home with oxycodone and will continue Tylenol as well. Patient had minimal intraoperative blood loss and 2gm tranexamic acid was administered there was no need for postoperative blood transfusion Patients vital signs remained stable. Patient was started on both mechanical and chemical DVT per prophylaxis postoperatively in the form of SCDs CHETAN hose and [Eliquis 5 mg twice daily for which she will continue as he takes this regularly ]. thigh high chetan hose placed over top of the meplix silver dressing. This should be removed 72 hrs post operatively and showering begun daily at that time with warm water and antibacterial soap. not to submerge for 3 weeks. To change dressing daily after first dressing change. Patient will follow-up in the office in 2 weeks. - Physical Exam Vitals/I&O's: Vital Signs Temp Pulse Resp BP Pulse Ox 98.1 F 80 16 137/74 H 92 03/31/20 10:54 03/31/20 10:54 03/31/20 10:54 03/31/20 10:54 03/31/20 10:54 Oxygen Flow Rate (L/min) 6 Oxygen Delivery Method Room Air Weight: 208 lb 8.917 oz Body Mass Index (BMI) 32.6 Finger Stick Blood Glucose 153 Intake and Output for Last 24 Hours 03/29/20 03/30/20 03/31/20 23:59 23:59 23:59 Intake Total 3335.5 / 3335.5 500 / 500 Output Total 1650 / 1650 500 / 500 Balance 1685.5 / 1685.5 0 / 0 General: Alert, Oriented x3, Cooperative, No apparent distress Extremities: - - dressing CDI, NVI Laboratory Results 03/30/20 05:52: POC Glucose 301 H 03/30/20 05:53: POC Glucose 277 H 03/31/20 05:28: WBC 23.3 H, RBC 4.56 L, Hgb 13.7, Hct 40.6, MCV 89.0, MCH 30.0, MCHC 33.7, RDW Std Deviation 42.9, RDW Coeff of Kip 13.1, Plt Count 169, MPV 10.7 03/31/20 05:28: Sodium 137, Potassium 4.2, Chloride 104, Carbon Dioxide 28.0, Anion Gap 5, BUN 18, Creatinine 1.14, Estim Creat Clear Calc 51.54, Est GFR (MDRD) Af Amer 80, Est GFR (MDRD) Non-Af 66, BUN/Creatinine Ratio 15.8, Glucose 226 H, Calcium 8.4 L Current Medications Acetaminophen (Tylenol) 1,000 mg PO Q8H MARY Last Admin: 03/31/20 05:17 Dose: 1,000 mg Documented by: Albuterol Sulfate (Ventolin Aerosols) 2.5 mg INHALATION Q6HWA.RT MARY Last Admin: 03/30/20 18:59 Dose: 2.5 mg Documented by: Albuterol/Ipratropium (Duoneb) 3 ml INHALATION Q4HWA.RT PRN PRN Reason: SOB &/OR WHEEZING Last Admin: 03/31/20 07:16 Dose: 3 ml Documented by: Amlodipine Besylate (Norvasc) 5 mg PO DAILY [facility] Last Admin: 03/31/20 07:30 Dose: 5 mg Documented by: Apixaban (Eliquis) 5 mg PO BID [facility] Last Admin: 03/31/20 05:17 Dose: 5 mg Documented by: Atorvastatin Calcium (Lipitor) 80 mg PO QHS [facility] Last Admin: 03/30/20 21:41 Dose: 80 mg Documented by: Budesonide (Pulmicort Aerosol) 0.5 mg INHALATION Q12H.RT [facility] Last Admin: 03/31/20 07:16 Dose: 0.5 mg Documented by: Carvedilol (Coreg) 6.25 mg PO BID [facility] Last Admin: 03/31/20 07:30 Dose: 6.25 mg Documented by: Hydromorphone HCl (Dilaudid Inj) 0.5 mg IV Q2H PRN PRN PRN Reason: Pain Score 6-10/10 Insulin Human Lispro (Humalog Kwikpen (Bkc)) 1 - 6 unit SC Q4H PRN PRN; Protocol PRN Reason: BG>/= 180, SEE PROTOCOL Montelukast Sodium (Singulair) 10 mg PO DAILY [facility] Last Admin: 03/31/20 07:31 Dose: 10 mg Documented by: Nitroglycerin (Nitrostat) 0.4 mg SUBLINGUAL Q5M PRN PRN Reason: CHEST Ondansetron HCl (Zofran) 4 mg IV Q6H PRN PRN PRN Reason: NAUSEA Oxycodone HCl (Oxyir) 5 - 10 mg PO Q4H PRN PRN PRN Reason: Pain Score 4-10/10 Last Admin: 03/31/20 06:09 Dose: 10 mg Documented by: Ramipril (Altace) 10 mg PO BID [facility] Last Admin: 03/31/20 07:30 Dose: 10 mg Documented by: Senna/Docusate Sodium (Senokot-S, Verito-Colace) 2 tablet PO BID [facility] Last Admin: 03/31/20 07:31 Dose: 2 tablet Documented by: Sodium Chloride () 10 - 40 ml IV UD PRN PRN Reason: SALINE FLUSH Last Admin: 03/31/20 03:22 Dose: 20 ml Documented by: Discharge Diet: No Restrictions Weight Bearing Status: Weight bearing as tolerated Home Medications: Medications to take at Discharge Albuterol Inhaler [Ventolin Hfa] 1 - 2 puff INHALATION Q4H PRN PRN 12/25/13 Carvedilol [Coreg (Beta Sterling)] 6.25 mg PO BID 12/25/13 Nitroglycerin (INPATIENT USE) [Nitrostat] 0.4 mg SUBLINGUAL Q5M PRN 12/25/13 Ramipril [Altace] 10 mg PO BID 12/25/13 fluticasone propionate 50 mcg/actuation nasal spray,suspension 50 mcg INTRANASAL QDAY PRN 06/25/17 atorvastatin 80 mg tablet 80 mg PO QHS tab 08/14/17 ipratropium 0.5 mg-albuterol 3 mg (2.5 mg base)/3 mL nebulization soln 3 ml INHALATION Q4HWA.RT PRN box 09/03/18 apixaban 5 mg tablet 5 mg PO BID #180 tab 08/27/19 isosorbide mononitrate 30 mg tablet,extended release 24 hr 30 mg PO BID 10/28/19 amlodipine 5 mg tablet 5 mg PO QDAY tab 02/17/20 montelukast 10 mg tablet 10 mg PO DAILY 02/17/20 budesonide-formoterol HFA 160 mcg-4.5 mcg/actuation aerosol inhaler 2 puff INHALATION Q12H #3 device 03/08/20 Acetaminophen [Tylenol] 1,000 mg PO Q6H PRN PRN 03/23/20 Acetaminophen [Tylenol] 1,000 mg PO Q8H #100 tab 03/31/20 Apixaban [Eliquis] 5 mg PO BID tablet 03/31/20 Oxycodone [Oxyir] 5 - 10 mg PO Q4H PRN PRN #60 tablet 03/31/20 Following Prescriptions Were Given to Patient: Oxycodone [Oxyir] 5 - 10 mg PO Q4H PRN PRN #60 tablet PRN Reason: Pain Score 4-10/10 Transmission Status: Sent to [facility] Acetaminophen [Tylenol] 1,000 mg PO Q8H #100 tab Transmission Status: Pending to [facility] Primary Care Physician: Fito Velez MD [Primary Care Provider] - Please Follow Up With: [facility] When: Sunday Please Follow Up With: Sage Russell DO When: 2 weeks Additional Instructions: Ice and elevate one week while not ambulating. Ambulation is encouraged. Weightbearing as tolerated. Use assistive devise for stability. Encourage FULL knee extension and flexion 1 time EVERY time you get up and down and MULTIPLE times per day. No showering 72 hours after surgery. Begin showering postop day #3. Remove the dressing prior to shower and gently wash with warm water and antibacterial soap then pat dry and place abdominal pad (or plain gauze) and CHETAN hose over top. This is to be done daily. Do not submerge for 3 weeks. If not showering daily after the initial 72 hours then you must clean incision and change dressing daily. Do not allow animals near the incision area. Keep clean. Follow anticoagulation recommendations as prescribed. Do not take any NSAIDs while on blood thinner. Do not take any additional narcotic pain medication other than what was prescribed on you surgery day without discussing with physician. Start physical therapy. If you are not currently scheduled for physical therapy or you are unsure of appointment time please call office [facility] to arrange. Call Dr. Russell with any concerns. Medical Necessity - Tobacco Use Smoking Status: Former smoker Tobacco Use: Non-smoker Meaningful Use Info Meaningful Use Diagnoses (Choose all that apply): None applicable
[2020-03-31 14:16] VITALS: BP 109/72; PULSE 86; RESP 18; TEMP 36.5; O2SAT 93
== END 2020-03-31 14:55 | disposition home or self-care (01) ==
LOC: SDC 13:32 → MS3 13:32
PROVIDERS: Anesthesiology; Admitting Provider Orthopaedic Surgery; PCP Family Medicine; Referring Provider Orthopaedic Surgery; Visit Provider Orthopaedic Surgery
PROC: 0SRD0JZ Replacement of Left Knee Joint with Synthetic Substitute, Open Approach (ICD-10-PCS; CPT 27447; principal; 2020-03-30 07:00)
DX: M17.12 Unilateral primary osteoarthritis, left knee (principal); S82.031A Displaced transverse fracture of right patella, initial encounter for closed fracture; Z11.59 Encounter for screening for other viral diseases; W11.XXXA Fall on and from ladder, initial encounter; Y93.89 Activity, other specified; Y92.71 Barn as the place of occurrence of the external cause; I48.92 Unspecified atrial flutter; I73.9 Peripheral vascular disease, unspecified; I25.5 Ischemic cardiomyopathy; I25.10 Atherosclerotic heart disease of native coronary artery without angina pectoris; Z95.1 Presence of aortocoronary bypass graft; Z79.899 Other long term (current) drug therapy; Z87.891 Personal history of nicotine dependence
CPT/HCPCS: 01400; 27447; 64447; S2900; 36415; 73560; 80048; 82962; 85027; 87635; 93005; 94640; 96361; 96365; 96366; 97110; 97116; 97162; 97166; 97530; 97535; 99218; 99251; C1776; C9803; J7040; J7120; A4216; G0378; G0379; G0463; J0702; J3490; U0003

== ENCOUNTER 2020-05-07 06:56 | Inpatient (IN) | payer MEDICARE, OTHER, SELFPAY ==
[2020-04-14 10:16] VITALS: BMI 32.6
[2020-05-07] VITALS (38 sets, daily range): BP systolic 96–184; BP diastolic 55–119; PULSE 83–98; RESP 18–93; TEMP 36.4–37.3; O2SAT 30–97; BMI 31.8; BMI 33.8
--- NOTE | 2020-05-07 07:04 | EKG12_ITS ---
Test Reason : Blood Pressure : / mmHG Vent. Rate : 093 BPM Atrial Rate : 093 BPM P-R Int : 104 ms QRS Dur : 154 ms QT Int : 422 ms P-R-T Axes : 065 -78 092 degrees QTc Int : 524 ms Atrial-sensed ventricular-paced rhythm Biventricular pacemaker detected Abnormal ECG Confirmed by MARCIO MEYER, SHARIF ([id number]), loan expeditor WHITNEY SUÁREZ ([id number]) on 05/11/2020 11:07:22 AM Referred By: PETAR Confirmed By:SHARIF BUCKLEY MD
--- NOTE | 2020-05-07 07:05 | RAD_ITS ---
STUDY: X-RAY CHEST REASON FOR EXAM: Male, 74 years old. COUGH, DIAGNOSED WITH COVID, SOB OVERNIGHT TECHNIQUE: Single AP portable view of the chest. COMPARISON: Comparison is made with prior study dated 11/17/2017. FINDINGS: Limited examination. Findings suggestive of a wedge-shaped infiltrate in the peripheral aspect of the right upper lobe. There is no demonstrated pleural abnormality. Sternal cerclage wires and vascular clips are present from a prior sternotomy and coronary artery bypass graft procedure (CABG). A left-sided dual-chamber pacemaker is seen. Normal mediastinum and debbie. Normal visualized pulmonary arteries. Normal visualized aortic arch and descending thoracic aorta. Normal visualized thoracic spine. Normal visualized ribs, clavicles, and shoulders. There is no demonstrated abnormality of the visualized soft tissue structures of the upper abdomen. RAD/Chest 1 View (Portable) IMPRESSION: Findings suggestive of a wedge-shaped infiltrate in the lateral aspect of the right mid lung. Electronically Signed: Ramone Mcmahon, at 8:40 EDT , Service support ,
--- NOTE | 2020-05-07 07:07 | ED.DCSUM_ITS ---
History of Present Illness Chief Complaint: Shortness of Breath Detail of Chief Complaint: Fever, chills, positive Covid test Informant: Patient Onset: Days Context: Sudden Onset Timing: Continuous Quality: Dyspnea, dyspnea exertion, cough, constitutional symptoms Location: Upper respiratory Current Severity: Moderate Maximum Severity: Severe Worsened by: Activity Relieved by: Nothing Associated Symptoms: Patient presents with documentation that his Covid test was positive yester Narrative: Patient is an elderly male with multiple medical problems who presents because of shortness of breath. He did have a positive Covid test yesterday. Symptoms started on Sunday. He presents with fever, chills and upper respiratory symptoms. Does have a cough which is nonproductive. He reports shortness of breath at rest and dyspnea exertion. Patient states he lost his ability to smell 5 years ago. He had knee surgery 2 weeks ago. He denies pleuritic chest pain. He denies any discoloration of his left lower extremity or pain. He states he does have mild swelling, which he attributes to the surgery. He denies GI symptoms. He denies symptoms. He does have history of COPD. Prior similar symptoms: No Recent Illness/Hospitalization: No - Past Medical History (1) Femoral artery aneurysm, right Status: Acute (2) Aortocoronary bypass status Status: Chronic Comment: CABG x3-DEL ROSARIO side to side to the diagonal and end to side of anterior descending, SVG to posterolateral of RCA 05/20 (3) Atherosclerotic heart disease of [place] coronary artery without angina pectoris Status: Chronic Comment: DEL ROSARIO side to side to the diagonal and end to side of anterior descending, SVG to PL of RCA 05/20 (4) Carotid artery disease Status: Chronic (5) Essential (primary) hypertension Status: Chronic (6) Hyperlipidemia, unspecified Status: Chronic (7) Ischemic cardiomyopathy Status: Chronic (8) Peripheral vascular disease Status: Chronic (9) Presence of biventricular implantable cardioverter-defibrillator (ICD) Status: Chronic Past Medical History - Allergies and Home Meds Allergies/Adverse Reactions: Allergies ciprofloxacin [From Cipro] Allergy (Verified 05/07/20 06:57) Swelling ciprofloxacin HCl [From Cipro] Allergy (Verified 05/07/20 06:57) hand Swelling Sulfa (Sulfonamide Antibiotics) Allergy (Verified 05/07/20 06:57) Unknown reaction when he was a child. Primary Care Physician: Fito Velez MD [Primary Care Provider] - Prior records reviewed: Yes Surgical History: coronary bypass surgery, total knee arthroplasty Lives: Spouse/ Significant Other Smoking Status: Former smoker Alcohol: None Drugs: None - Family History Maternal Family History: Family History (Last Reviewed 03/08/20 @ 10:49 by Sole Tran) Father Heart disease Cancer Brother Cancer Family History: Reports: No pertinent history Review of Systems General: Reports: Chills, Fever, Malaise, Sweats. Denies: Subjective, Weight loss ENT: Reports: Rhinorrhea, Sore throat. Denies: Bilateral ear pain Cardiovascular: Reports: Palpitations. Denies: Chest pain Respiratory: Reports: Dyspnea, Cough, Dyspnea on exertion. Denies: Sputum, Orthopnea, Paroxysmal nocturnal dyspnea Gastrointestinal: Denies: Abdominal pain, Nausea, Vomiting, Diarrhea, Melena, Hematochezia Genitourinary: Denies: Dysuria, Hematuria, Frequency Musculoskeletal: Reports: Myalgias, Extremity Pain - Left lower extremity status post knee surgery 2 weeks ago. No discoloration or pain.. Denies: Arthralgias, Neck pain, Back pain, Swelling Skin: Denies: Rash, Wounds Neurological: Reports: Weakness. Denies: Headache Hematologic: Denies: Easy bruising, Easy bleeding Allergy: Denies: Uticaria Physical Exam Vital Signs/Narrative: Vital Signs Temp Pulse Resp BP Pulse Ox 05/07/20 07:03 95 93 H 184/95 H 30 05/07/20 07:02 91 05/07/20 06:57 98.7 F 97 23 H 142/119 H 87 Inital Vital Signs reviewed: Yes General: Well nourished, Well developed, Acute Distress Head: Normocephalic, Atraumatic Eyes: Perrl, EOMI. Negative for: Pale conjunctiva, Scleral icterus ENT: Moist mucous membranes, No rhinorrhea, Nasal congestion. Negative for: Sinus tenderness Neck: Supple, Nontender, No lymphadenopathy, No JVD Cardiovascular: Regular rate, Regular rhythm, No murmurs, Normal S1, Normal S2 Respiratory: Rales, Wheezing, Diminished, Decreased Air Movement Abdomen: Soft, Nontender, Nondistended, Normal bowel sounds Back: Nontender, Normal Inspection Extremities: Nontender, Edema. Negative for: Calf Tenderness Skin: Normal color, No rash Neurological: Alert, Oriented x3, Cranial nerves II-XII grossly intact, Normal Strength, Normal Sensation Psychological: Normal affect, Normal Mood Diagnostic/Tx/Re-eval Chest X-Ray - ED: 1 View, Read by ED Physician, Right Infiltrate - Inferior segment right upper lobe and left lower lobe infiltrate, Left Infiltrate 05/07/20 07:05 Chest 1 View (Portable) [RAD] Stat Laboratory Results 05/07/20 05/07/20 05/07/20 07:10 07:10 07:10 WBC 11.7 H RBC 4.55 L Hgb 13.9 Hct 42.3 MCV 93.0 MCH 30.5 MCHC 32.9 RDW Std Deviation 45.5 H RDW Coeff of Kip 13.3 Plt Count 205 MPV 11.3 Immature Gran % (Auto) 0.400 Neut % (Auto) 88.2 H Lymph % (Auto) 3.3 L [place] % (Auto) 7.5 Eos % (Auto) 0.3 Baso % (Auto) 0.3 Absolute Neuts (auto) 10.3 H Absolute Lymphs (auto) 0.38 L Nucleated RBC % 0 D-Dimer Quant (PE/DVT) 2.08 H* Specimen Type VBG pH VBG pO2 VBG HCO3 VBG Total CO2 VBG O2 Sat (Calc) VBG Base Excess POC Mix VBG pCO2 Pt Tmp O2 Delivery Device Liter Flow Sodium 135 L Potassium 4.1 Chloride 103 Carbon Dioxide 26.0 Anion Gap 6 BUN 16 Creatinine 1.11 Estim Creat Clear Calc 52.93 Est GFR (MDRD) Af Amer 83 Est GFR (MDRD) Non-Af 68 BUN/Creatinine Ratio 14.4 Glucose 169 H Lactic Acid Calcium 8.6 Total Bilirubin 2.30 H AST 19 ALT 20 Alkaline Phosphatase 113 Total Protein 7.3 Albumin 2.9 L Globulin 4.4 H Albumin/Globulin Ratio 0.7 L 05/07/20 05/07/20 07:10 07:36 WBC RBC Hgb Hct MCV MCH MCHC RDW Std Deviation RDW Coeff of Kip Plt Count MPV Immature Gran % (Auto) Neut % (Auto) Lymph % (Auto) [place] % (Auto) Eos % (Auto) Baso % (Auto) Absolute Neuts (auto) Absolute Lymphs (auto) Nucleated RBC % D-Dimer Quant (PE/DVT) Specimen Type SASHA VBG pH 7.41 VBG pO2 32 VBG HCO3 24 VBG Total CO2 26 VBG O2 Sat (Calc) 63 VBG Base Excess 0 POC Mix VBG pCO2 Pt Tmp 38.3 L O2 Delivery Device Cannula Liter Flow 2.0 Sodium Potassium Chloride Carbon Dioxide Anion Gap BUN Creatinine Estim Creat Clear Calc Est GFR (MDRD) Af Amer Est GFR (MDRD) Non-Af BUN/Creatinine Ratio Glucose Lactic Acid 1.7 Calcium Total Bilirubin AST ALT Alkaline Phosphatase Total Protein Albumin Globulin Albumin/Globulin Ratio - EKG Initial EKG Interpretation: - - Atrial sensed ventricular paced rhythm with a rate of 93. AR interval is 104 ms. QRS duration 154 ms. QT duration 422 ms. This is a normal ventricular sensed and paced rhythm. - Medical Decision Making Patient has exacerbation of COPD. Patient has a positive Covid test. Suspect the coronavirus infection has exacerbated COPD. Will obtain x-ray to determine if he has infiltrates. He was treated with dexamethasone, DuoNeb, albuterol. He is hypoxic with a O2 saturation 87% on room air. He was informed he will require admission to the hospital. Venous blood gas is unremarkable. pH is normal. PCO2 was normal. Was obtained to rule out CO2 retention since patient has history of COPD and breathing is labored. Patient has bilateral infiltrates. This may be due to Covid and superimposed bacterial infection since the location is not typical for Covid. Will treat with Rocephin and gentamicin since the pro calcitonin level is pending. Dimer is elevated at 2.08 which 1 would expect with an inflammatory/infectious process. Do not believe this is due to pulmonary embolus. ED Disposition - Plan for ED Patient: Disposition: Acute Care Hospital [facility] Diagnosis: Pneumonia due to SARS-associated coronavirus, Bilateral pulmonary infiltrates on chest x-ray, COPD exacerbation, Acute bronchospasm, Type 2 diabetes mellitus Referrals: Fito Velez MD [Primary Care Provider] -
[2020-05-07] MEDS: 0.9% Normal Saline 1,000 ML 125 ML IV (07:20)
[2020-05-07] MEDS: dexAMETHasone 10 MG/ML Vial IV (07:20)
[2020-05-07] MEDS: Ondansetron 4 MG/2 ML Vial IV (07:27)
[2020-05-07 07:30] LABS: Absolute Lymphocyte Count 0.38 X10^3/uL (0.83-4.51); Absolute Neutrophil Count 10.3 X10^3/uL (2.0-7.7); Basophil# 0.04 X10^3/uL; Basophil% 0.3 % (0-1); Eosinophil# 0.03 X10^3/uL; Eosinophils% 0.3 % (0-5); Hematocrit 42.3 % (40-54); Hemoglobin 13.9 g/dL (13.0-16.5); Lymphocyte # 0.38 X10^3/ul (4.0); Lymphocyte % 3.3 % (19-41); Mean Corp Hgb Conc 32.9 g/dL (32-36); Mean Corpuscular Hgb 30.5 pg (27.0-32.0); Mean Platelet Vol. 11.3 fl (6.2-12.0); Monocyte# 0.88 X10^3/uL; Monocyte% 7.5 % (0-10); NRBC Flagged by Analyzer 0 % (0-5); Neutrophil # 10.31 X10^3/uL (2.7-7.7); Neutrophil % 88.2 % (47-70); POSITIVE DIFFERENTIAL YES; Platelet Count 205 K/mm3 (150-450); RBC Distribution Width CV 13.3 % (11.6-14.6); RBC Distribution Width SD 45.5 fl (35.1-43.9); Red Blood Count 4.55 M/mm3 (4.6-6.2); White Blood Count 11.7 K/mm3 (4.4-11.0)
[2020-05-07] MEDS: Albuterol 2.5 MG/3 ML VIAL.NEB. INHALATION (07:30)
[2020-05-07] MEDS: Ipratropium/Albuterol Sulfate 3 ML AMPUL.NEB INHALATION (07:30)
[2020-05-07 07:40] LABS: Blood Gas Specimen Type VEN; O2 Delivery Device Cannula; VBG BASE EXCESS 0 mmol/L (-1.0-3.5); VBG Bicarbonate 24 mmol/L (22-26); VBG PO2 32 mmHg (25-40); VBG SO2 63 % (50-70); VBG TCO2 26 mmol/L (23-33); VBG pCO2 38.3 mmHg (41-51); VBG pH 7.41 (7.32-7.42)
[2020-05-07 07:44] LABS: ALB/GLOB Ratio 0.7 RATIO (0.9-2.4); AST(SGOT) 19 U/L (15-37); Alanine Aminotransfer ALT/SGPT 20 U/L (16-61); Albumin, Serum 2.9 g/dL (3.2-5.0); Alkaline Phosphatase 113 U/L (45-117); Anion Gap 6 (5-15); BUN 16 mg/dL (7-18); BUN/Creat Ratio 14.4 RATIO (10-20); Calcium,Total 8.6 mg/dL (8.5-10.1); Chloride 103 mmol/L (98-107); Creatinine, Serum 1.11 mg/dL (0.70-1.30); EST Glomerular Filtration Rate 68 mL/min (>60); Est Glom Filt Rate - Afr Amer 83 mL/min (>60); Estimated Creatinine Clearance 52.93 ml/min; Globulin 4.4 g/dL (2.2-4.2); Glucose 169 mg/dL (74-106); Potassium 4.1 mmol/L (3.5-5.1); Protein, Total 7.3 g/dL (6.4-8.2); Sodium Level 135 mmol/L (136-145)
[2020-05-07 07:48] LABS: Differential Indicated SCAN CRITERIA MET
[2020-05-07 07:52] LABS: D-Dimer Quantitative (DVT/PE) 2.08 FEU/ug/m (0.27-0.49)
[2020-05-07 07:54] LABS: Lactic Acid 1.7 mmol/L (0.4-1.9)
--- NOTE | 2020-05-07 08:26 | NURSING ---
DR FINCH FOR DR DAVEY
[2020-05-07 08:28] LABS: Procalcitonin 0.14 ng/mL (0.00-0.09)
--- NOTE | 2020-05-07 08:29 | NURSING ---
MS2 COVID PAINTSIL LATERAL INFILTRATES, COVID 19, PNEUMONIA, ACUTE RESP FAILURE WITH HYP
--- NOTE | 2020-05-07 08:31 | PN_ITS ---
Patient Problems: Active and Suspected Problems (Last Reviewed 03/08/20 @ 10:49 by Sole Tran) Femoral artery aneurysm, right (Acute) Vitals/I&O's: Vital Signs Temp Pulse Resp BP Pulse Ox 97.5 F L 94 18 104/62 92 05/07/20 08:02 05/07/20 08:16 05/07/20 08:16 05/07/20 08:16 05/07/20 08:16 Oxygen Flow Rate (L/min) 4 Oxygen Delivery Method Nasal Cannula Weight: 92.2 kg Body Mass Index (BMI) 31.8 Finger Stick Blood Glucose 153 Laboratory Results 05/07/20 07:10: D-Dimer Quant (PE/DVT) 2.08 H* 05/07/20 07:10: Procalcitonin 0.14 H 05/07/20 07:10: WBC 11.7 H, RBC 4.55 L, Hgb 13.9, Hct 42.3, MCV 93.0, MCH 30.5, MCHC 32.9, RDW Std Deviation 45.5 H, RDW Coeff of Kip 13.3, Plt Count 205, MPV 11.3, Immature Gran % (Auto) 0.400, Neut % (Auto) 88.2 H, Lymph % (Auto) 3.3 L, [place] % (Auto) 7.5, Eos % (Auto) 0.3, Baso % (Auto) 0.3, Absolute Neuts (auto) 10.3 H, Absolute Lymphs (auto) 0.38 L, Nucleated RBC % 0 05/07/20 07:10: Sodium 135 L, Potassium 4.1, Chloride 103, Carbon Dioxide 26.0, Anion Gap 6, BUN 16, Creatinine 1.11, Estim Creat Clear Calc 52.93, Est GFR (MDRD) Af Amer 83, Est GFR (MDRD) Non-Af 68, BUN/Creatinine Ratio 14.4, Glucose 169 H, Calcium 8.6, Total Bilirubin 2.30 H, AST 19, ALT 20, Alkaline Phosphatase 113, Total Protein 7.3, Albumin 2.9 L, Globulin 4.4 H, Albumin/Globulin Ratio 0.7 L 05/07/20 07:10: Lactic Acid 1.7 05/07/20 07:36: Specimen Type SASHA, VBG pH 7.41, VBG pO2 32, VBG HCO3 24, VBG Total CO2 26, VBG O2 Sat (Calc) 63, VBG Base Excess 0, POC Mix VBG pCO2 Pt Tmp 38.3 L, O2 Delivery Device Cannula, Liter Flow 2.0 Current Medications Albuterol Sulfate (Albuterol 2.5 Mg/3 Ml Vial.Neb.) 2.5 mg INHALATION Q2H [facility] Last Admin: 05/07/20 07:30 Dose: 2.5 mg Documented by: Sodium Chloride () 1,000 mls @ 125 mls/hr IV .Q8H [facility] Last Admin: 05/07/20 07:20 Dose: 125 mls/hr Documented by: Ceftriaxone Sodium 2 gm/ (Sodium Chloride) 50 mls @ 100 mls/hr IV X1 ONE Stop: 05/07/20 08:54 Azithromycin 500 mg/ Dextrose 255 mls @ 250 mls/hr IV X1 ONE Stop: 05/07/20 09:26 STROKE Vital Signs/Narrative: Vital Signs Temp Pulse Resp BP Pulse Ox 05/07/20 08:16 94 18 104/62 92 05/07/20 08:02 97.5 F L 94 20 H 128/86 H 95 05/07/20 07:59 94 05/07/20 07:30 88 20 H 05/07/20 07:23 98.1 F 98 23 H 184/95 H 95 05/07/20 07:03 95 93 H 184/95 H 30 05/07/20 07:02 91 05/07/20 06:57 98.7 F 97 23 H 142/119 H 87 Medical Necessity - Tobacco Use Smoking Status: Former smoker Tobacco Use: Cigarettes Assessment/Plan All Active Problems (Last Updated 04/14/20 @ 10:15 by Sheryl Hill) Pneumonia due to SARS-associated coronavirus (Acute) Bilateral pulmonary infiltrates on chest x-ray (Acute) Acute bronchospasm (Acute) Type 2 diabetes mellitus (Acute) Femoral artery aneurysm, right (Acute) Presence of other cardiac implants and grafts (Resolved)
[2020-05-07 08:47] LABS: Platelet Estimate ADEQUATE (ADEQ); Red Cell Morphology NORM C+C NORMAL (NORM C&C)
--- NOTE | 2020-05-07 08:54 | ED.DCSUM_ITS ---
- ER Visit Summary Date of Service: 05/07/20 Chief Complaint: [] History of Present Illness: The patient is a 74 M [] Physical Examination: [] Test Results: [] Emergency Department Course and Treatment: [] Treatment Plan: [] Disposition: [] Impression: [] This note was generated with [employer] dictation software. It may contain incorrect words, spelling, and punctuation that were not noted in review of the chart prior to signing ED Disposition - Plan for ED Patient: Disposition: Acute Care Hospital [facility] Diagnosis: Pneumonia due to SARS-associated coronavirus, Bilateral pulmonary infiltrates on chest x-ray, COPD exacerbation, Acute bronchospasm, Type 2 diabetes mellitus, Acute respiratory failure with hypoxia Referrals: Fito Velez MD [Primary Care Provider] -
--- NOTE | 2020-05-07 09:25 | NURSING ---
NEW FLOOR, ICU
--- NOTE | 2020-05-07 10:15 | NURSING ---
[facility] 204
[2020-05-07] MEDS: dexAMETHasone 10 MG/ML Vial 6 MG IV (12:40)
--- NOTE | 2020-05-07 13:22 | PCM.HP.STD ---
Problem List (1) Pneumonia due to SARS-associated coronavirus Status: Acute (2) Hyperlipidemia, unspecified Status: Chronic Qualifiers: Hyperlipidemia type: unspecified Qualified Code(s): E78.5 - Hyperlipidemia, unspecified (3) Essential (primary) hypertension Status: Chronic (4) Aortocoronary bypass status Status: Chronic Comment: CABG x3-DEL ROSARIO side to side to the diagonal and end to side of anterior descending, SVG to posterolateral of RCA 05/20 (5) Peripheral vascular disease Status: Chronic (6) Hypoxia Status: Acute (7) Hyponatremia Status: Acute (8) Respiratory failure Status: Acute Qualifiers: Chronicity: acute Respiratory failure complication: hypoxia Qualified Code(s): J96.01 - Acute respiratory failure with hypoxia History of Present Illness Date of Admission: 05/07/20 Chief Complaint: Shortness of breath - 5 days The patient is a 74 year old M with medical history of CAD status post CABG, hypertension, peripheral artery disease who comes in with complaints of shortness of breath and feeling unwell ongoing for 5 days. Patient stated that he lives alone. He has been having low-grade temperatures as well as shortness of breath with cough. He denied contact with any active person. He did not that he has a mask on anytime he goes out. He recently had a knee replacement done a month ago. He denies any chest pain or dizziness or palpitations or diarrhea. He has no sense of smell or taste and that has been ongoing for more than 5 years. Vitals in the ED showed temperature of 98.7F, heart rate 97, blood pressure 142/119, respiratory 23, SPO2 was 87% on room air, improved to 95% on 2 L and later on got worse and needed to be put on the Ventimask. His WBC count was 11.7, hemoglobin 13.9, platelet count 205, D-dimer 2.08, ABGs were unremarkable. Sodium was 135 that was new, potassium 4.1, chloride 103, bicarbonate 26, BUN 16, creatinine 1.11. Calcitonin was 0.14, BNP and troponins are pending. Chest x-ray shows wedge-shaped infiltrate in the lateral aspect of the right midlung. Past Medical History Past Medical History (Chronic Problems): Chronic Problems (Last Reviewed 03/08/20 @ 10:49 by Sole Tran) COPD exacerbation (Chronic) Atrial flutter (Chronic) Erectile dysfunction (Chronic) Hyperlipidemia, unspecified (Chronic) Essential (primary) hypertension (Chronic) Presence of biventricular implantable cardioverter-defibrillator (ICD) (Chronic 04/22/12) Presence of stent in coronary artery (Chronic) x7 CX, PL, PDA of RCA Atherosclerotic heart disease of [place] coronary artery without angina pectoris (Chronic) DEL ROSARIO side to side to the diagonal and end to side of anterior descending, SVG to PL of RCA 12 Aortocoronary bypass status (Chronic ~05/17/12) CABG x3-DEL ROSARIO side to side to the diagonal and end to side of anterior descending, SVG to posterolateral of RCA 05/20 Carotid artery disease (Chronic) Shortness of breath (Chronic) Ischemic cardiomyopathy (Chronic) Peripheral vascular disease (Chronic) Medical History: Medical History (Last Reviewed 03/08/20 @ 10:49 by Sole Tran) Atrial flutter (Chronic) I48.92 Femoral artery aneurysm, right (Acute) I72.4 Hyperlipidemia, unspecified (Chronic) E78.5 Essential (primary) hypertension (Chronic) I10 Atherosclerotic heart disease of [place] coronary artery without angina pectoris (Chronic) I25.10 DEL ROSARIO side to side to the diagonal and end to side of anterior descending, SVG to PL of RCA 05/20 Carotid artery disease (Chronic) I77.9 Shortness of breath (Chronic) R06.02 Ischemic cardiomyopathy (Chronic) I25.5 Peripheral vascular disease (Chronic) I73.9 COPD (chronic obstructive pulmonary disease) J44.9 BHARAT (obstructive sleep apnea) G47.33 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 Allergic rhinitis (Inactive) J30.9 CAD (coronary artery disease) (Inactive) I25.10 COPD (chronic obstructive pulmonary disease) (Inactive) J44.9 COPD (chronic obstructive pulmonary disease) (Inactive) J44.9 Influenza B (Inactive) J10.1 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 Home Medications: Ambulatory Orders Medication Instructions Recorded Albuterol Inhaler [Ventolin Hfa] 1 - 2 puff INHALATION Q4H PRN PRN 12/25/13 Carvedilol [Coreg (Beta [place])] 6.25 mg PO BID 12/25/13 Nitroglycerin (INPATIENT USE) 0.4 mg SUBLINGUAL Q5M PRN 12/25/13 [Nitrostat] Ramipril [Altace] 10 mg PO BID 12/25/13 fluticasone propionate 50 50 mcg INTRANASAL QDAY PRN 06/25/17 mcg/actuation nasal spray,suspension atorvastatin 80 mg tablet 80 mg PO QHS tab 08/14/17 ipratropium 0.5 mg-albuterol 3 mg 3 ml INHALATION Q4HWA.RT PRN box 09/03/18 (2.5 mg base)/3 mL nebulization soln isosorbide mononitrate 30 mg 30 mg PO BID 10/28/19 tablet,extended release 24 hr montelukast 10 mg tablet 10 mg PO DAILY 02/17/20 budesonide-formoterol HFA 160 2 puff INHALATION Q12H #3 device 03/08/20 mcg-4.5 mcg/actuation aerosol inhaler Apixaban [Eliquis] 5 mg PO BID tab 03/31/20 oxycodone 5 mg capsule 5 - 10 mg PO Q6H PRN #56 cap 05/03/20 Amlodipine Besylate [Norvasc] 10 mg PO DAILY 05/07/20 Surgical History: Surgical History (Last Updated 04/14/20 @ 10:15 by Sheryl Hill) Presence of biventricular implantable cardioverter-defibrillator (ICD) (Chronic) Onset Date: 04/22/12 Z95.810 Presence of stent in coronary artery (Chronic) Z95.5 x7 CX, PL, PDA of RCA Aortocoronary bypass status (Chronic) Onset Date: ~05/17/12 Z95.1 CABG x3-DEL ROSARIO side to side to the diagonal and end to side of anterior descending, SVG to posterolateral of RCA 05/20 Presence of other cardiac implants and grafts (Resolved) Z95.818 CAD with CABG 2012 - DEL ROSARIO side to side to diagonal & end to side to anterior decending SVG to PL of RCA. Previous stents to Cx, PL, PDA of RCA. h/o left TKA History of permanent cardiac pacemaker placement Z95.0 History of tonsillectomy Z90.89 Hx of CABG (Inactive) Z95.1 2012, DEL ROSARIO side to side to diagonal & end to side to anterior decending SVG to PL of RCA Surgical History: coronary bypass surgery, pacemaker implantation - and ICD, total knee arthroplasty - left, tonsillectomy Psychiatric History: No pertinent psych hx Lives: Spouse/ Significant Other Smoking Status: Former smoker Tobacco Use: Cigarettes Alcohol: None Drugs: None - *Family History Maternal Family History: Family History (Last Reviewed 03/08/20 @ 10:49 by Sole Tran) Father Heart disease Cancer Brother Cancer History Items: No pertinent history Paternal Family History: Family History (Last Reviewed 03/08/20 @ 10:49 by Sole Tran) Father Heart disease Cancer Brother Cancer History Items: Cancer, Heart Disease Review of Systems Constitutional: Reports: Anorexia, Fever - low grade, Malaise, Weakness, Fatigue. Denies: Chills, Weight Change Eyes: Denies: Blurred vision, Cataracts, Conjunctivae Inflammation, Pain, Redness, Vision Change HEENT: Denies: Difficulty Hearing, Difficulty Swallowing, Head Aches, Hearing Changes, Sinus Congestion, Sinus Drainage, Sore Throat Cardiovascular: Denies: Chest Pain, Light Headedness, Orthopnea, Palpitations Respiratory: Reports: Cough, Shortness of Breath, Shortness of breath at rest, Shortness of breath upon exertion, Wheezing. Denies: Sputum production Gastrointestinal: Denies: Abdominal Pain, Hematemesis, Hematochezia, Nausea, Vomiting Genitourinary: Denies: Dysuria, Frequency, Incontinence Musculoskeletal: Denies: Joint Pain, Joint stiffness, Joint swelling, Joint Tenderness Skin: Denies: Pruritis, Rash, Wounds Neurological: Denies: Numbness, Tingling, Focal weakness Psychiatric: Denies: Anxiety, Depression, Homicidal Ideations, Suicidal Ideations Hematologic/ Lymphatic: Denies: Easy Bruising, Easy Bleeding VTE Information - Inpt Only VTE Present on Admission: No VTE Pharm Prophylaxis ordered?: Yes Patient Problems: Active and Suspected Problems (Last Reviewed 03/08/20 @ 10:49 by Sole Tran) Pneumonia due to SARS-associated coronavirus (Acute) Bilateral pulmonary infiltrates on chest x-ray (Acute) Acute bronchospasm (Acute) Type 2 diabetes mellitus (Acute) Acute respiratory failure with hypoxia (Acute) Hypoxia (Acute) Hyponatremia (Acute) Respiratory failure (Acute) Femoral artery aneurysm, right (Acute) - Physical Exam Vitals/I&O's: Vital Signs Temp Pulse Resp BP Pulse Ox 98 F 83 18 113/55 L 91 05/07/20 12:00 05/07/20 13:00 05/07/20 13:00 05/07/20 13:00 05/07/20 13:00 Oxygen Flow Rate (L/min) 12 Oxygen Delivery Method Venturi Mask Weight: 98 kg Body Mass Index (BMI) 33.8 Finger Stick Blood Glucose 153 Intake and Output for Last 24 Hours 05/05/20 05/06/20 05/07/20 23:59 23:59 23:59 Intake Total 857.08 / 857.08 Output Total 0 / 0 Balance 857.08 / 857.08 General: Alert, Oriented x3, Cooperative, No apparent distress, - - No conversational dyspnea, on nonrebreather oxygen, appears comfortable HEENT: Atraumatic, PERRLA, EOMI, Normocephalic Oral: Moist Mucosa Neck: Supple Lungs: Clear to auscultation, Normal air movement, - - midsternal scar from CABG Cardiovascular: Regular rate, Regular Rhythm, Normal S1, Normal S2, No murmurs Abdomen: Bowel Sounds Present, Soft, Non Tender, Non-Distended, No Hepato-splenomegaly Extremities: No edema Skin: No rashes Musculoskeletal: No Tenderness to Palpation of Joints or Extremities Lymphatic: No Cervical, Supraclavicular, or Inguinal Adenopathy Neurological: Cranial nerves II-XII grossly intact, Neuro grossly intact Psych/Mental Status: Normal Affect, Appropriate Laboratory Results 05/07/20 07:10: D-Dimer Quant (PE/DVT) 2.08 H* 05/07/20 07:10: Procalcitonin 0.14 H 05/07/20 07:10: WBC 11.7 H, RBC 4.55 L, Hgb 13.9, Hct 42.3, MCV 93.0, MCH 30.5, MCHC 32.9, RDW Std Deviation 45.5 H, RDW Coeff of Kip 13.3, Plt Count 205, MPV 11.3, Immature Gran % (Auto) 0.400, Neut % (Auto) 88.2 H, Lymph % (Auto) 3.3 L, [place] % (Auto) 7.5, Eos % (Auto) 0.3, Baso % (Auto) 0.3, Absolute Neuts (auto) 10.3 H, Absolute Lymphs (auto) 0.38 L, Nucleated RBC % 0, Differential Comment , Platelet Estimate ADEQUATE, RBC Morphology NORM C+C 05/07/20 07:10: Sodium 135 L, Potassium 4.1, Chloride 103, Carbon Dioxide 26.0, Anion Gap 6, BUN 16, Creatinine 1.11, Estim Creat Clear Calc 52.93, Est GFR (MDRD) Af Amer 83, Est GFR (MDRD) Non-Af 68, BUN/Creatinine Ratio 14.4, Glucose 169 H, Calcium 8.6, Total Bilirubin 2.30 H, AST 19, ALT 20, Alkaline Phosphatase 113, Total Protein 7.3, Albumin 2.9 L, Globulin 4.4 H, Albumin/Globulin Ratio 0.7 L 05/07/20 07:10: Lactic Acid 1.7 05/07/20 07:10: Troponin I Pending 05/07/20 07:10: B-Natriuretic Peptide Pending 05/07/20 07:36: Specimen Type SASHA, VBG pH 7.41, VBG pO2 32, VBG HCO3 24, VBG Total CO2 26, VBG O2 Sat (Calc) 63, VBG Base Excess 0, POC Mix VBG pCO2 Pt Tmp 38.3 L, O2 Delivery Device Cannula, Liter Flow 2.0 Current Medications Acetaminophen (Acetaminophen 325 Mg Tablet) 650 mg PO Q6H PRN PRN PRN Reason: Pain Score 1-10/Temp > 100.7 F Al Hydroxide/Mg Hydroxide (Mag Hydrox/Al Hydrox/Simeth 30 Ml Udc) 30 ml PO Q6H PRN PRN PRN Reason: Gastric Burning Albuterol Sulfate (Albuterol Sulfate 8 Gm Inhaler (60 Puffs)) 2 puff INHALATION Q2H PRN PRN PRN Reason: SOB &/OR WHEEZING Albuterol Sulfate (Albuterol Sulfate 8 Gm Inhaler (60 Puffs)) 1 puff INHALATION Q6HWA.RT MARY Albuterol/Ipratropium (Ipratropium/Albuterol Sulfate 3 Ml Ampul.Neb) 3 ml INHALATION Q4HWA.RT PRN PRN Reason: SOB &/OR WHEEZING Amlodipine Besylate (Amlodipine 10 Mg Tablet) 10 mg PO DAILY [facility] Last Admin: 05/07/20 12:34 Dose: Not Given Documented by: Apixaban (Apixaban 5 Mg Tablet) 5 mg PO BID [facility] Last Admin: 05/07/20 12:34 Dose: Not Given Documented by: Atorvastatin Calcium (Atorvastatin Calcium 80 Mg Tablet) 80 mg PO QHS [facility] Carvedilol (Carvedilol 6.25 Mg Tablet) 6.25 mg PO BIDCM [facility] Last Admin: 05/07/20 12:34 Dose: Not Given Documented by: Dexamethasone Sodium Phosphate (Dexamethasone 10 Mg/Ml Vial) 6 mg IV DAILY [facility] Last Admin: 05/07/20 12:40 Dose: 6 mg Documented by: Sodium Chloride () 500 mls @ 75 mls/hr IV .Q6H40M ONE Stop: 05/07/20 19:36 Isosorbide Mononitrate (Isosorbide Mononitrate 30 Mg Tablet) 30 mg PO BID [facility] Last Admin: 05/07/20 12:34 Dose: Not Given Documented by: Montelukast Sodium (Montelukast 10 Mg Tablet) 10 mg PO DAILY [facility] Last Admin: 05/07/20 12:34 Dose: Not Given Documented by: Nitroglycerin (Nitroglycerin (Inpatient Use) 0.4 Mg Tab.Subl) 0.4 mg SUBLINGUAL Q5M PRN PRN Reason: CHEST Nutritional Formula (Lactose Free) (Glucerna Shake 120 Ml Liquid) 120 ml PO TIDCM [facility] Ondansetron HCl (Ondansetron 4 Mg/2 Ml Vial) 4 mg IV Q8H PRN PRN PRN Reason: NAUSEA/VOMITING Ramipril (Ramipril 10 Mg Capsule) 10 mg PO BID [facility] Last Admin: 05/07/20 12:34 Dose: Not Given Documented by: Sodium Chloride (0.9% Saline Lock 10 Ml Syringe) 10 - 40 ml IV UD PRN PRN Reason: SALINE FLUSH Assessment/Plan All Active Problems (Last Updated 04/14/20 @ 10:15 by Sheryl Hill) Pneumonia due to SARS-associated coronavirus (Acute) Bilateral pulmonary infiltrates on chest x-ray (Acute) Acute bronchospasm (Acute) Type 2 diabetes mellitus (Acute) Acute respiratory failure with hypoxia (Acute) Hypoxia (Acute) Hyponatremia (Acute) Respiratory failure (Acute) Femoral artery aneurysm, right (Acute) Presence of other cardiac implants and grafts (Resolved) 1. Acute hypoxic respiratory failure secondary to acute COVID-19 pneumonia, worsening Currently on Ventimask, FiO2b 45%, continue on breathing treatments 2. Acute COVID-19 infection/pneumonia with hypoxia, severe Leucocytosis 11.7, elevated D-dimer 2.08, Lactic acid 1.7, Procalcitonin 0.14 Started on IV Decadron. ID and pulmo following 3. Elevated total bilirubin, bilirubin 2.30, will differentiate Will repeat labs in am 4. CAD s/p CABG/peripheral artery disease/ischemic cardiomyopathy/status post ICD/status post pacemaker Continue on apixaban, carvedilol, Imdur, rampril 5. COPD, not in acute exacerbation, will monitor 6. Hypertension, controlled, continue on amlodipine, ramipril 7. Status recent left knee replacement, will continue on oxycodone 8. DVT PPx - on Apixaban 9. Code status - Full code I discussed goals of care with patient. I went on to explain in details the various types of CODE STATUS-full code, DNR CCA, DNR CC. He stated that should he have a cardiopulmonary arrest, he will like to be resuscitated. Time spent discussing CODE STATUS 18 minutes Inpatient E&M: 78470 Init Hosp L3 Procedures: 60458 Advncd Care Plan 30 Min
[2020-05-07 14:30] LABS: Hemoglobin A1c 6.2 % (3.8-5.6)
--- NOTE | 2020-05-07 15:21 | CON.PCM_ITS ---
Problem List (1) Pneumonia due to SARS-associated coronavirus Status: Acute Reason for Consult: bear Consulted by: Dr. Davis History of Present Illness: The patient is a 74 year old M who presented yesterday with sx starting 05/03 of fever, chills, fatigue, cough, and SOB. No sick contacts, lives alone. No sense of smell for 5 years. No aches, no n/v/d, no headache. Came to ED, sats were low, admitted on dexamethasone. Feeling about the same today. Full ROS performed and neg except as noted above. - Medical History Past Medical History (Chronic Problems): Chronic Problems (Last Reviewed 03/08/20 @ 10:49 by Sole Tran) COPD exacerbation (Chronic) Atrial flutter (Chronic) Erectile dysfunction (Chronic) Hyperlipidemia, unspecified (Chronic) Essential (primary) hypertension (Chronic) Presence of biventricular implantable cardioverter-defibrillator (ICD) (Chronic 04/22/12) Presence of stent in coronary artery (Chronic) x7 CX, PL, PDA of RCA Atherosclerotic heart disease of [place] coronary artery without angina pectoris (Chronic) [place] side to side to the diagonal and end to side of anterior descending, SVG to PL of RCA 05/20 Aortocoronary bypass status (Chronic ~05/17/12) CABG x3-[place] side to side to the diagonal and end to side of anterior descending, SVG to posterolateral of RCA 05/20 Carotid artery disease (Chronic) Shortness of breath (Chronic) Ischemic cardiomyopathy (Chronic) Peripheral vascular disease (Chronic) Allergies/Adverse Reactions: Allergies ciprofloxacin [From Cipro] Allergy (Verified 05/07/20 06:57) Swelling ciprofloxacin HCl [From Cipro] Allergy (Verified 05/07/20 06:57) hand Swelling Sulfa (Sulfonamide Antibiotics) Allergy (Verified 05/07/20 06:57) Unknown reaction when he was a child. Home Medications: Ambulatory Orders Medication Instructions Recorded Albuterol Inhaler [Ventolin Hfa] 1 - 2 puff INHALATION Q4H PRN PRN 12/25/13 Carvedilol [Coreg (Beta [place])] 6.25 mg PO BID 12/25/13 Nitroglycerin (INPATIENT USE) 0.4 mg SUBLINGUAL Q5M PRN 12/25/13 [Nitrostat] Ramipril [Altace] 10 mg PO BID 12/25/13 fluticasone propionate 50 50 mcg INTRANASAL QDAY PRN 06/25/17 mcg/actuation nasal spray,suspension atorvastatin 80 mg tablet 80 mg PO QHS tab 08/14/17 ipratropium 0.5 mg-albuterol 3 mg 3 ml INHALATION Q4HWA.RT PRN box 09/03/18 (2.5 mg base)/3 mL nebulization soln isosorbide mononitrate 30 mg 30 mg PO BID 10/28/19 tablet,extended release 24 hr montelukast 10 mg tablet 10 mg PO DAILY 02/17/20 budesonide-formoterol HFA 160 2 puff INHALATION Q12H #3 device 03/08/20 mcg-4.5 mcg/actuation aerosol inhaler Apixaban [Eliquis] 5 mg PO BID tab 03/31/20 oxycodone 5 mg capsule 5 - 10 mg PO Q6H PRN #56 cap 05/03/20 Amlodipine Besylate [Norvasc] 10 mg PO DAILY 05/07/20 - Social History SMOKING STATUS:: Former smoker Vital Signs Temp Pulse Resp BP Pulse Ox 98 F 88 26 H 118/57 L 95 05/07/20 12:00 05/07/20 15:00 05/07/20 15:00 05/07/20 15:00 05/07/20 15:03 Oxygen Flow Rate (L/min) 12 Oxygen Delivery Method Venturi Mask Weight: 98 kg Body Mass Index (BMI) 33.8 Finger Stick Blood Glucose 153 Laboratory Tests Past 24 Hrs 05/07/20 05/07/20 05/07/20 07:10 07:10 07:10 WBC 11.7 H RBC 4.55 L Hgb 13.9 Hct 42.3 MCV 93.0 MCH 30.5 MCHC 32.9 RDW Std Deviation 45.5 H RDW Coeff of Kip 13.3 Plt Count 205 MPV 11.3 Immature Gran % (Auto) 0.400 Neut % (Auto) 88.2 H Lymph % (Auto) 3.3 L [place] % (Auto) 7.5 Eos % (Auto) 0.3 Baso % (Auto) 0.3 Absolute Neuts (auto) 10.3 H Absolute Lymphs (auto) 0.38 L Nucleated RBC % 0 Differential Comment Platelet Estimate ADEQUATE RBC Morphology NORM C+C D-Dimer Quant (PE/DVT) 2.08 H* Specimen Type VBG pH VBG pO2 VBG HCO3 VBG Total CO2 VBG O2 Sat (Calc) VBG Base Excess POC Mix VBG pCO2 Pt Tmp O2 Delivery Device Liter Flow Sodium Potassium Chloride Carbon Dioxide Anion Gap BUN Creatinine Estim Creat Clear Calc Est GFR (MDRD) Af Amer Est GFR (MDRD) Non-Af BUN/Creatinine Ratio Glucose Hemoglobin A1c Lactic Acid Calcium Total Bilirubin Direct Bilirubin Indirect Bilirubin AST ALT Alkaline Phosphatase Troponin I B-Natriuretic Peptide Total Protein Albumin Globulin Albumin/Globulin Ratio Procalcitonin 0.14 H Blood Type 05/07/20 05/07/20 05/07/20 07:10 07:10 07:10 WBC RBC Hgb Hct MCV MCH MCHC RDW Std Deviation RDW Coeff of Kip Plt Count MPV Immature Gran % (Auto) Neut % (Auto) Lymph % (Auto) [place] % (Auto) Eos % (Auto) Baso % (Auto) Absolute Neuts (auto) Absolute Lymphs (auto) Nucleated RBC % Differential Comment Platelet Estimate RBC Morphology D-Dimer Quant (PE/DVT) Specimen Type VBG pH VBG pO2 VBG HCO3 VBG Total CO2 VBG O2 Sat (Calc) VBG Base Excess POC Mix VBG pCO2 Pt Tmp O2 Delivery Device Liter Flow Sodium 135 L Potassium 4.1 Chloride 103 Carbon Dioxide 26.0 Anion Gap 6 BUN 16 Creatinine 1.11 Estim Creat Clear Calc 52.93 Est GFR (MDRD) Af Amer 83 Est GFR (MDRD) Non-Af 68 BUN/Creatinine Ratio 14.4 Glucose 169 H Hemoglobin A1c Lactic Acid 1.7 Calcium 8.6 Total Bilirubin 2.30 H Direct Bilirubin Indirect Bilirubin AST 19 ALT 20 Alkaline Phosphatase 113 Troponin I < 0.015 B-Natriuretic Peptide Total Protein 7.3 Albumin 2.9 L Globulin 4.4 H Albumin/Globulin Ratio 0.7 L Procalcitonin Blood Type 05/07/20 05/07/20 05/07/20 07:10 07:36 13:50 WBC RBC Hgb Hct MCV MCH MCHC RDW Std Deviation RDW Coeff of Kip Plt Count MPV Immature Gran % (Auto) Neut % (Auto) Lymph % (Auto) [place] % (Auto) Eos % (Auto) Baso % (Auto) Absolute Neuts (auto) Absolute Lymphs (auto) Nucleated RBC % Differential Comment Platelet Estimate RBC Morphology D-Dimer Quant (PE/DVT) Specimen Type SASHA VBG pH 7.41 VBG pO2 32 VBG HCO3 24 VBG Total CO2 26 VBG O2 Sat (Calc) 63 VBG Base Excess 0 POC Mix VBG pCO2 Pt Tmp 38.3 L O2 Delivery Device Cannula Liter Flow 2.0 Sodium Potassium Chloride Carbon Dioxide Anion Gap BUN Creatinine Estim Creat Clear Calc Est GFR (MDRD) Af Amer Est GFR (MDRD) Non-Af BUN/Creatinine Ratio Glucose Hemoglobin A1c Lactic Acid Calcium Total Bilirubin Direct Bilirubin Indirect Bilirubin AST ALT Alkaline Phosphatase Troponin I B-Natriuretic Peptide 119.0 H Total Protein Albumin Globulin Albumin/Globulin Ratio Procalcitonin Blood Type O POSITIVE 05/07/20 05/07/20 13:50 13:50 WBC RBC Hgb Hct MCV MCH MCHC RDW Std Deviation RDW Coeff of Kip Plt Count MPV Immature Gran % (Auto) Neut % (Auto) Lymph % (Auto) [place] % (Auto) Eos % (Auto) Baso % (Auto) Absolute Neuts (auto) Absolute Lymphs (auto) Nucleated RBC % Differential Comment Platelet Estimate RBC Morphology D-Dimer Quant (PE/DVT) Specimen Type VBG pH VBG pO2 VBG HCO3 VBG Total CO2 VBG O2 Sat (Calc) VBG Base Excess POC Mix VBG pCO2 Pt Tmp O2 Delivery Device Liter Flow Sodium Potassium Chloride Carbon Dioxide Anion Gap BUN Creatinine Estim Creat Clear Calc Est GFR (MDRD) Af Amer Est GFR (MDRD) Non-Af BUN/Creatinine Ratio Glucose Hemoglobin A1c 6.2 H Lactic Acid Calcium Total Bilirubin Cancelled Direct Bilirubin Cancelled Indirect Bilirubin Cancelled AST ALT Alkaline Phosphatase Troponin I B-Natriuretic Peptide Total Protein Albumin Globulin Albumin/Globulin Ratio Procalcitonin Blood Type - Other Studies Radiology: [] reviewed Other Studies: [] Route of nutrition/ use of supplements: [] Nutritional Intake: [] IV Site: [] Thomas Catheter: [] - Physical Exam General: Alert, Oriented x3, Cooperative, No apparent distress HEENT: Atraumatic, PERRLA, EOMI Neck: Supple, No Nodes Lungs: Diminished Cardiovascular: Regular rate, Regular Rhythm, No murmurs Abdomen: Soft, Non Tender, Non-Distended Extremities: No edema Skin: No rashes IV Site: Peripheral, without redness Musculoskeletal: No Tenderness to Palpation of Joints or Extremities Neurological: Cranial nerves II-XII grossly intact - Assessment/Plan Antibiotics: [] Assessment/Plan: [] Active and Suspected Problems (Last Reviewed 03/08/20 @ 10:49 by Sole Tran) Pneumonia due to SARS-associated coronavirus (Acute) Bilateral pulmonary infiltrates on chest x-ray (Acute) Acute bronchospasm (Acute) Type 2 diabetes mellitus (Acute) Acute respiratory failure with hypoxia (Acute) Hypoxia (Acute) Hyponatremia (Acute) Respiratory failure (Acute) Femoral artery aneurysm, right (Acute) covid with hypoxia - on dex, eliquis. Reviewed EUA and risks/benefits. He agrees with starting plasma and remdesivir. Checking ABO, trop, and bnp. Will follow, thank you
[2020-05-07 16:34] LABS: Bilirubin, Direct 0.45 mg/dL (0.00-0.30)
[2020-05-07] MEDS: Carvedilol 6.25 MG Tablet PO (16:44)
--- NOTE | 2020-05-07 16:58 | CON.PCM_ITS ---
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 insulin use: without intermediate school teacher use Diabetes mellitus complication status: with circulatory complication Diabetes mellitus complication detail: with peripheral angiopathy without gangrene Qualified Code(s): E11.51 - Type 2 diabetes mellitus with diabetic peripheral angiopathy without gangrene (5) Acute respiratory failure with hypoxia Status: Acute (6) Hyponatremia Status: Acute (7) Atrial flutter Status: Chronic Qualifiers: Atrial flutter type: atypical Qualified Code(s): I48.4 - Atypical atrial flutter (8) Femoral artery aneurysm, right Status: Acute (9) Hyperlipidemia, unspecified Status: Chronic Qualifiers: Hyperlipidemia type: unspecified Qualified Code(s): E78.5 - Hyperlipidemia, unspecified (10) Essential (primary) hypertension Status: Chronic (11) Presence of biventricular implantable cardioverter-defibrillator (ICD) Status: Chronic (12) Presence of stent in coronary artery Status: Chronic Comment: x7 CX, PL, PDA of RCA (13) Carotid artery disease Status: Chronic Qualifiers: Carotid artery disease type: unspecified Laterality: unspecified laterality Qualified Code(s): I77.9 - Disorder of arteries and arterioles, unspecified (14) Ischemic cardiomyopathy Status: Chronic (15) Peripheral vascular disease Status: Chronic (16) Presence of other cardiac implants and grafts Status: Resolved Comment: CAD with CABG 2011 [place] ROSARIO side to side to diagonal & end to side to anterior decending SVG to PL of RCA. Previous stents to Cx, PL, PDA of RCA. Reason for Consult Date of Consultation: 05/07/20 Reason for Consultation: Hypoxia History of Present Illness: The patient is a 74 year old M, with past medical history listed below, who presented [facility] on 05/07/2020 secondary to progressive shortness of breath. Patient had tested positive for Covid on the day before presentation. Patient states that his symptoms started approximately 5 days prior to presentation. Patient states he had knee surgery 2 weeks ago and has had decreased mobility. Patient describes a cough that is nonproductive, shortness of breath on exertion and mild swelling. Patient does carry diagnosis of COPD and is followed by Dr. Slaughter in the outpatient office. Patient does not use supplemental oxygen at baseline, but was requiring supplemental oxygen on presentation. On presentation to the ER, patient was noted to be 87% on room air. Laboratory work-up showed a relatively unremarkable VBG, normal lactate and liver function. Creatinine was slightly elevated at 1.11 and patient had a leukocytosis of 11.7. D-dimer was slightly elevated at 2.08. Patient did have a chest x-ray that was personally reviewed that shows a right-sided infiltrate. Patient was admitted to the floor on a Ventimask for further evaluation. Patient reports that 2 years ago he was admitted with similar type symptoms that was attributed to influenza. That did require an ICU admission and patient was on supplemental oxygen for a short period of time afterwards. Patient has been following with Dr. Slaughter and states that he has been doing very well recently. Patient does not require supplemental oxygen at baseline. Patient has been compliant with his inhalers. Review of systems otherwise negative from a constitutional, HEENT, respiratory, cardiovascular, GI, genitourinary, musculoskeletal, skin, neurologic, psychiatric and hematologic system unless stated above. Past Medical History Past Medical History (Chronic Problems): Chronic Problems (Last Reviewed 03/08/20 @ 10:49 by Sole Tran) COPD exacerbation (Chronic) Atrial flutter (Chronic) Erectile dysfunction (Chronic) Hyperlipidemia, unspecified (Chronic) Essential (primary) hypertension (Chronic) Presence of biventricular implantable cardioverter-defibrillator (ICD) (Chronic 04/22/12) Presence of stent in coronary artery (Chronic) x7 CX, PL, PDA of RCA Atherosclerotic heart disease of [place] coronary artery without angina pectoris (Chronic) DEL ROSARIO side to side to the diagonal and end to side of anterior descending, SVG to PL of RCA 05/20 Aortocoronary bypass status (Chronic ~05/17/12) CABG x3-DEL ROSARIO side to side to the diagonal and end to side of anterior descending, SVG to posterolateral of RCA 05/20 Carotid artery disease (Chronic) Shortness of breath (Chronic) Ischemic cardiomyopathy (Chronic) Peripheral vascular disease (Chronic) Medical History: Medical History (Last Reviewed 03/08/20 @ 10:49 by Sole Tran) Atrial flutter (Chronic) I48.92 Femoral artery aneurysm, right (Acute) I72.4 Hyperlipidemia, unspecified (Chronic) E78.5 Essential (primary) hypertension (Chronic) I10 Atherosclerotic heart disease of [place] coronary artery without angina pectoris (Chronic) I25.10 DEL ROSARIO side to side to the diagonal and end to side of anterior descending, SVG to PL of RCA 11/12 Carotid artery disease (Chronic) I77.9 Shortness of breath (Chronic) R06.02 Ischemic cardiomyopathy (Chronic) I25.5 Peripheral vascular disease (Chronic) I73.9 COPD (chronic obstructive pulmonary disease) J44.9 BHARAT (obstructive sleep apnea) G47.33 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 Allergic rhinitis (Inactive) J30.9 CAD (coronary artery disease) (Inactive) I25.10 COPD (chronic obstructive pulmonary disease) (Inactive) J44.9 COPD (chronic obstructive pulmonary disease) (Inactive) J44.9 Influenza B (Inactive) J10.1 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 Home Medications: Ambulatory Orders Medication Instructions Recorded Albuterol Inhaler [Ventolin Hfa] 1 - 2 puff INHALATION Q4H PRN PRN 12/25/13 Carvedilol [Coreg (Beta Sterling)] 6.25 mg PO BID 12/25/13 Nitroglycerin (INPATIENT USE) 0.4 mg SUBLINGUAL Q5M PRN 12/25/13 [Nitrostat] Ramipril [Altace] 10 mg PO BID 12/25/13 fluticasone propionate 50 50 mcg INTRANASAL QDAY PRN 06/25/ mcg/actuation nasal spray,suspension atorvastatin 80 mg tablet 80 mg PO QHS tab 08/14/17 ipratropium 0.5 mg-albuterol 3 mg 3 ml INHALATION Q4HWA.RT PRN box 09/03/18 (2.5 mg base)/3 mL nebulization soln isosorbide mononitrate 30 mg 30 mg PO BID 10/28/19 tablet,extended release 24 hr montelukast 10 mg tablet 10 mg PO DAILY 02/17/20 budesonide-formoterol HFA 160 2 puff INHALATION Q12H #3 device 03/08/20 mcg-4.5 mcg/actuation aerosol inhaler Apixaban [Eliquis] 5 mg PO BID tab 03/31/20 oxycodone 5 mg capsule 5 - 10 mg PO Q6H PRN #56 cap 05/03/20 Amlodipine Besylate [Norvasc] 10 mg PO DAILY 05/07/20 Surgical History: Surgical History (Last Updated 04/14/20 @ 10:15 by Sheryl Hill) Presence of biventricular implantable cardioverter-defibrillator (ICD) (Chronic) Onset Date: 04/22/12 Z95.810 Presence of stent in coronary artery (Chronic) Z95.5 x7 CX, PL, PDA of RCA Aortocoronary bypass status (Chronic) Onset Date: ~05/17/12 Z95.1 CABG x3-DEL ROSARIO side to side to the diagonal and end to side of anterior descending, SVG to posterolateral of RCA 11 Presence of other cardiac implants and grafts (Resolved) Z95.818 CAD with CABG 2012 - DEL ROSARIO side to side to diagonal & end to side to anterior decending SVG to PL of RCA. Previous stents to Cx, PL, PDA of RCA. h/o left TKA History of permanent cardiac pacemaker placement Z95.0 History of tonsillectomy Z90.89 Hx of CABG (Inactive) Z95.1 2012, DEL ROSARIO side to side to diagonal & end to side to anterior decending SVG to PL of RCA Surgical History: coronary bypass surgery, pacemaker implantation - and ICD, total knee arthroplasty - left, tonsillectomy Psychiatric History: No pertinent psych hx Lives: Spouse/ Significant Other Smoking Status: Former smoker Tobacco Use: Cigarettes Alcohol: None Drugs: None - *Family History Maternal Family History: Family History (Last Reviewed 03/08/20 @ 10:49 by Sole Tran) Father Heart disease Cancer Brother Cancer History Items: No pertinent history Paternal Family History: Family History (Last Reviewed 03/08/20 @ 10:49 by Sole Tran) Father Heart disease Cancer Brother Cancer History Items: Cancer, Heart Disease Review of Systems Comment: See HPI Patient Problems: Active and Suspected Problems (Last Reviewed 03/08/20 @ 10:49 by Sole Tran) Pneumonia due to SARS-associated coronavirus (Acute) Bilateral pulmonary infiltrates on chest x-ray (Acute) Acute bronchospasm (Acute) Type 2 diabetes mellitus (Acute) Acute respiratory failure with hypoxia (Acute) Hypoxia (Acute) Hyponatremia (Acute) Respiratory failure (Acute) Femoral artery aneurysm, right (Acute) Objective: Chest x-ray was personally reviewed. Complete PFT from 05/31/2018 was reviewed showing a partially reversible mild large airways obstructive ventilatory defect with a symmetric reduction diffusion capacity and a pattern consistent with COPD/asthma overlap syndrome. Patient does have an extensive cardiac history including a coronary artery bypass surgery in 2011 and reported ischemic cardiomyopathy. Patient does not have a recent echocardiogram, but from review of the literature/hospital EMR, patient is on Eliquis secondary to history of atrial flutter. - Physical Exam Vitals/I&O's: Vital Signs Temp Pulse Resp BP Pulse Ox 36.6 C 90 20 H 138/66 H 95 05/07/20 16:00 05/07/20 16:00 05/07/20 16:00 05/07/20 16:00 05/07/20 16:00 Oxygen Flow Rate (L/min) 12 Oxygen Delivery Method Venturi Mask Weight: 98 kg Body Mass Index (BMI) 33.8 Finger Stick Blood Glucose 153 Intake and Output for Last 24 Hours 05/05/20 05/06/20 05/07/20 23:59 23:59 23:59 Intake Total 977.08 / 977.08 Output Total 0 / 0 Balance 977.08 / 977.08 General: Alert, Oriented x3, Cooperative, No apparent distress, - - Obese. Mild conversational dyspnea. HEENT: Atraumatic, PERRLA, EOMI, Normocephalic, - - No scleral icterus or injection noted Oral: Moist Mucosa, No Gingival or Mucosal Lesions/ Ulcerations Neck: Supple, No JVD, No Nodes, Trachea Midline Lungs: No rhonchi, No rales, Diminished, Wheezes, - - Symmetric expansion Cardiovascular: Normal S1, Normal S2, No murmurs, Irregular Rate, No rub noted, No Gallop Abdomen: Bowel Sounds Present, Soft, Non Tender, Non-Distended, Obese Extremities: No clubbing, No cyanosis, No edema Skin: No rashes, No breakdown Musculoskeletal: No Tenderness to Palpation of Joints or Extremities Lymphatic: No Cervical, Supraclavicular, or Inguinal Adenopathy Neurological: Cranial nerves II-XII grossly intact, Neuro grossly intact, Motor Exam 5/5 strength throughout Psych/Mental Status: Alert and oriented to time, place, person, mood and affect Laboratory Results 05/07/20 07:10: D-Dimer Quant (PE/DVT) 2.08 H* 05/07/20 07:10: Procalcitonin 0.14 H 05/07/20 07:10: WBC 11.7 H, RBC 4.55 L, Hgb 13.9, Hct 42.3, MCV 93.0, MCH 30.5, MCHC 32.9, RDW Std Deviation 45.5 H, RDW Coeff of Kip 13.3, Plt Count 205, MPV 11.3, Immature Gran % (Auto) 0.400, Neut % (Auto) 88.2 H, Lymph % (Auto) 3.3 L, [place] % (Auto) 7.5, Eos % (Auto) 0.3, Baso % (Auto) 0.3, Absolute Neuts (auto) 10.3 H, Absolute Lymphs (auto) 0.38 L, Nucleated RBC % 0, Differential Comment , Platelet Estimate ADEQUATE, RBC Morphology NORM C+C 05/07/20 07:10: Sodium 135 L, Potassium 4.1, Chloride 103, Carbon Dioxide 26.0, Anion Gap 6, BUN 16, Creatinine 1.11, Estim Creat Clear Calc 52.93, Est GFR (MDRD) Af Amer 83, Est GFR (MDRD) Non-Af 68, BUN/Creatinine Ratio 14.4, Glucose 169 H, Calcium 8.6, Total Bilirubin 2.30 H, AST 19, ALT 20, Alkaline Phosphatase 113, Total Protein 7.3, Albumin 2.9 L, Globulin 4.4 H, Albumin/Globulin Ratio 0.7 L 05/07/20 07:10: Lactic Acid 1.7 05/07/20 07:10: Troponin I < 0.015 05/07/20 07:10: B-Natriuretic Peptide 119.0 H 05/07/20 07:36: Specimen Type SASHA, VBG pH 7.41, VBG pO2 32, VBG HCO3 24, VBG Total CO2 26, VBG O2 Sat (Calc) 63, VBG Base Excess 0, POC Mix VBG pCO2 Pt Tmp 38.3 L, O2 Delivery Device Cannula, Liter Flow 2.0 05/07/20 13:50: Blood Type O POSITIVE 05/07/20 13:50: Hemoglobin A1c 6.2 H 05/07/20 13:50: Total Bilirubin Cancelled, Direct Bilirubin Cancelled, Indirect Bilirubin Cancelled 05/07/20 15:55: Total Bilirubin 1.10 H, Direct Bilirubin 0.45 H, Indirect Bilirubin 0.60 Current Medications Acetaminophen (Acetaminophen 325 Mg Tablet) 650 mg PO Q6H PRN PRN PRN Reason: Pain Score 1-10/Temp > 100.7 F Al Hydroxide/Mg Hydroxide (Mag Hydrox/Al Hydrox/Simeth 30 Ml Udc) 30 ml PO Q6H PRN PRN PRN Reason: Gastric Burning Albuterol Sulfate (Albuterol Sulfate 8 Gm Inhaler (60 Puffs)) 2 puff INHALATION Q2H PRN PRN PRN Reason: SOB &/OR WHEEZING Albuterol/Ipratropium (Ipratropium/Albuterol Sulfate 3 Ml Ampul.Neb) 3 ml INHALATION Q4HWA.RT PRN PRN Reason: SOB &/OR WHEEZING Amlodipine Besylate (Amlodipine 10 Mg Tablet) 10 mg PO DAILY [facility] [place] Last Admin: 05/07/20 12:34 Dose: Not Given Documented by: Apixaban (Apixaban 5 Mg Tablet) 5 mg PO BID [facility] [place] Last Admin: 05/07/20 12:34 Dose: Not Given Documented by: Atorvastatin Calcium (Atorvastatin Calcium 80 Mg Tablet) 80 mg PO QHS [facility] [place] Carvedilol (Carvedilol 6.25 Mg Tablet) [facility] Last Admin: 05/07/20 16:44 Dose: 6.25 mg Documented by: Dexamethasone Sodium Phosphate (Dexamethasone 10 Mg/Ml Vial) 6 mg IV DAILY [facility] [place] Last Admin: 05/07/20 12:40 Dose: 6 mg Documented by: Sodium Chloride () 500 mls @ 75 mls/hr IV .Q6H40M ONE Stop: 05/07/20 19:36 Last Admin: 05/07/20 12:30 Dose: 75 mls/hr Documented by: Ceftriaxone Sodium (Rocephin) 1 gm in 50 mls @ 100 mls/hr IV Q24 MARY Azithromycin 500 mg/ Dextrose 255 mls @ 250 mls/hr IV Q24 MARY Remdesivir 100 mg/ Sodium (Chloride) 250 mls @ 125 mls/hr IV DAILY MARY; Protocol Stop: 05/11/20 11:59 Remdesivir 200 mg/ Sodium (Chloride) 250 mls @ 125 mls/hr IV X1 ONE; Protocol Stop: 05/07/20 17:59 Last Admin: 05/07/20 16:44 Dose: 125 mls/hr Documented by: Isosorbide Mononitrate (Isosorbide Mononitrate 30 Mg Tablet) 30 mg PO BID [facility] [place] Last Admin: 05/07/20 12:34 Dose: Not Given Documented by: Montelukast Sodium (Montelukast 10 Mg Tablet) 10 mg PO DAILY [facility] [place] Last Admin: 05/07/20 12:34 Dose: Not Given Documented by: Nitroglycerin (Nitroglycerin (Inpatient Use) 0.4 Mg Tab.Subl) 0.4 mg SUBLINGUAL Q5M PRN PRN Reason: CHEST Ondansetron HCl (Ondansetron 4 Mg/2 Ml Vial) 4 mg IV Q8H PRN PRN PRN Reason: NAUSEA/VOMITING Oxycodone HCl (Oxycodone 5 Mg Tablet) 5 mg PO Q4H PRN PRN PRN Reason: Pain Score 6-10 Ramipril (Ramipril 10 Mg Capsule) 10 mg PO BID [facility] [place] Last Admin: 05/07/20 12:34 Dose: Not Given Documented by: Sodium Chloride (0.9% Saline Lock 10 Ml Syringe) 10 - 40 ml IV UD PRN PRN Reason: SALINE FLUSH Clinical Impression(s) from Imaging Studies Chest X-Ray 05/07/20 07:05 IMPRESSION: Findings suggestive of a wedge-shaped infiltrate in the lateral aspect of the right mid lung. Electronically Signed: Ramone Mcmahon, at 8:40 EDT , Service support , Assessment/Plan All Active Problems (Last Updated 04/14/20 @ 10:15 by Sheryl Hill) Pneumonia due to SARS-associated coronavirus (Acute) Bilateral pulmonary infiltrates on chest x-ray (Acute) Acute bronchospasm (Acute) Type 2 diabetes mellitus (Acute) Acute respiratory failure with hypoxia (Acute) Hypoxia (Acute) Hyponatremia (Acute) Respiratory failure (Acute) Femoral artery aneurysm, right (Acute) Presence of other cardiac implants and grafts (Resolved) RECOMMENDATIONS: 1. Convalescent serum and remdesivir per infectious disease 2. Continue baseline Eliquis and add Decadron 3. Wean oxygen as tolerated 4. Attempt volume restriction through hospitalization 5. Aggressive bronchodilators IMPRESSIONS: 1. Acute hypoxic respiratory failure secondary to asthma/COPD exacerbation secondary to acute COVID-19 pneumonia Patient requiring Ventimask to maintain saturations at this time. Patient has had bronchodilator response in the past and would benefit from bronchodilators. Patient has been initiated on Decadron therapy. Patient should continue with baseline Eliquis therapy. Patient has agreed to remdesivir and convalescent serum. Continue to monitor closely. Patient's procalcitonin is not suggestive of a secondary infection. Patient's pulmonary function tests are slightly dated, but show only minimal obstruction at baseline. 2. Hyperbilirubinemia Unclear etiology. Patient is not reporting any significant right upper quadrant pain or gallbladder symptoms. Continue to monitor clinically. 3. Obesity/extensive cardiac history/hypertension/history of knee replacement/advanced age Complicates care, management, recovery and prognosis. Okay to continue with baseline medications for now. Patient may have to be titrated up on antihypertensives secondary to Decadron. Monitor renal function closely given MANNY inhibitor. Patient is very clear that he is a full code and wants all measures attempted. Inpatient E&M: 62509 Init Hosp L3
[2020-05-07] MEDS: Isosorbide Mononitrate 30 MG Tablet PO (21:48)
[2020-05-07] MEDS: Ramipril 10 MG Capsule PO (21:48)
[2020-05-07] MEDS: APIXABAN 5 MG TABLET PO (21:48)
[2020-05-07] MEDS: Atorvastatin Calcium 80 MG Tablet PO (21:48)
[2020-05-07] MEDS: 0.9% Saline Lock 10 ML Syringe IV (21:52)
[2020-05-07] MEDS: Loratadine 10 MG Tablet PO (22:20)
[2020-05-08] VITALS (17 sets, daily range): BP systolic 123–176; BP diastolic 59–87; PULSE 82–93; RESP 18–29; TEMP 36.2–36.9; O2SAT 91–95
[2020-05-08 04:05] LABS: Hematocrit 36.7 % (40-54); Hemoglobin 11.8 g/dL (13.0-16.5); Mean Corp Hgb Conc 32.2 g/dL (32-36); Mean Corpuscular Hgb 30.2 pg (27.0-32.0); Mean Corpuscular Volume 93.9 fL (80-94); Mean Platelet Vol. 10.5 fl (6.2-12.0); Platelet Count 179 K/mm3 (150-450); RBC Distribution Width SD 44.6 fl (35.1-43.9); Red Blood Count 3.91 M/mm3 (4.6-6.2); White Blood Count 13.2 K/mm3 (4.4-11.0)
[2020-05-08 04:28] LABS: ALB/GLOB Ratio 0.6 RATIO (0.9-2.4); AST(SGOT) 23 U/L (15-37); Alanine Aminotransfer ALT/SGPT 25 U/L (16-61); Albumin, Serum 2.5 g/dL (3.2-5.0); Alkaline Phosphatase 90 U/L (45-117); Anion Gap 6 (5-15); BUN 24 mg/dL (7-18); BUN/Creat Ratio 20.9 RATIO (10-20); Calcium,Total 8.4 mg/dL (8.5-10.1); Chloride 105 mmol/L (98-107); Creatinine, Serum 1.15 mg/dL (0.70-1.30); EST Glomerular Filtration Rate 66 mL/min (>60); Est Glom Filt Rate - Afr Amer 79 mL/min (>60); Estimated Creatinine Clearance 51.09 ml/min; Globulin 4.2 g/dL (2.2-4.2); Glucose 176 mg/dL (74-106); Potassium 4.2 mmol/L (3.5-5.1); Protein, Total 6.7 g/dL (6.4-8.2); Sodium Level 137 mmol/L (136-145)
--- NOTE | 2020-05-08 07:37 | PCM.PN.HOSP ---
Patient Problems: Active and Suspected Problems (Last Reviewed 03/08/20 @ 10:49 by Sole Tran) Pneumonia due to SARS-associated coronavirus (Acute) Bilateral pulmonary infiltrates on chest x-ray (Acute) Acute bronchospasm (Acute) Type 2 diabetes mellitus (Acute) Acute respiratory failure with hypoxia (Acute) Hypoxia (Acute) Hyponatremia (Acute) Respiratory failure (Acute) Femoral artery aneurysm, right (Acute) Reason for Visit: Follow-up on respiratory failure/COVID-19 infection/pneumonia Subjective: Patient was seen and examined. Status post convalescent plasma last night. Started on remdesivir. He denies any chest pain or dizziness or palpitations. His oxygen status has improved from the Ventimask to 3 L of oxygen. Objective: Physical exam: General: Alert, Oriented x3, Cooperative, No apparent distress, - - No conversational dyspnea, on 3 L oxygen, appears comfortable HEENT: Atraumatic, PERRLA, EOMI, Normocephalic Oral: Moist Mucosa Neck: Supple Lungs: Clear to auscultation, Normal air movement, - - midsternal scar from CABG Cardiovascular: Regular rate, Regular Rhythm, Normal S1, Normal S2, No murmurs Abdomen: Bowel Sounds Present, Soft, Non Tender, Non-Distended, No Hepato-splenomegaly Extremities: No edema Skin: No rashes Musculoskeletal: No Tenderness to Palpation of Joints or Extremities Lymphatic: No Cervical, Supraclavicular, or Inguinal Adenopathy Neurological: Cranial nerves II-XII grossly intact, Neuro grossly intact Psych/Mental Status: Normal Affect, Appropriate Vitals/I&O's: Vital Signs Temp Pulse Resp BP Pulse Ox 98.4 F 93 23 H 176/85 H 95 05/08/20 04:00 05/08/20 06:00 05/08/20 06:00 05/08/20 06:00 05/08/20 06:00 Oxygen Flow Rate (L/min) 3 Oxygen Delivery Method Nasal Cannula Weight: 98.2 kg Body Mass Index (BMI) 33.8 Finger Stick Blood Glucose 153 Intake and Output for Last 24 Hours 05/06/20 05/07/20 05/08/20 23:59 23:59 23:59 Intake Total 2224.58 / 2224.58 Output Total 600 / 600 100 / 100 Balance 1624.58 / 1624.58 -100 / -100 Microbiology Past 72 Hours 05/07/20 20:20 Urine, Clean Catch Legionella Antigen - Final 05/07/20 20:20 Urine, Clean Catch Streptococcus pneumoniae Antigen (M - Final Laboratory Results 05/07/20 07:10: D-Dimer Quant (PE/DVT) 2.08 H* 05/07/20 07:10: Procalcitonin 0.14 H 05/07/20 07:10: WBC 11.7 H, RBC 4.55 L, Hgb 13.9, Hct 42.3, MCV 93.0, MCH 30.5, MCHC 32.9, RDW Std Deviation 45.5 H, RDW Coeff of Kip 13.3, Plt Count 205, MPV 11.3, Immature Gran % (Auto) 0.400, Neut % (Auto) 88.2 H, Lymph % (Auto) 3.3 L, [place] % (Auto) 7.5, Eos % (Auto) 0.3, Baso % (Auto) 0.3, Absolute Neuts (auto) 10.3 H, Absolute Lymphs (auto) 0.38 L, Nucleated RBC % 0, Differential Comment , Platelet Estimate ADEQUATE, RBC Morphology NORM C+C 05/07/20 07:10: Sodium 135 L, Potassium 4.1, Chloride 103, Carbon Dioxide 26.0, Anion Gap 6, BUN 16, Creatinine 1.11, Estim Creat Clear Calc 52.93, Est GFR (MDRD) Af Amer 83, Est GFR (MDRD) Non-Af 68, BUN/Creatinine Ratio 14.4, Glucose 169 H, Calcium 8.6, Total Bilirubin 2.30 H, AST 19, ALT 20, Alkaline Phosphatase 113, Total Protein 7.3, Albumin 2.9 L, Globulin 4.4 H, Albumin/Globulin Ratio 0.7 L 05/07/20 07:10: Lactic Acid 1.7 05/07/20 07:10: Troponin I < 0.015 05/07/20 07:10: B-Natriuretic Peptide 119.0 H 05/07/20 07:36: Specimen Type SASHA, VBG pH 7.41, VBG pO2 32, VBG HCO3 24, VBG Total CO2 26, VBG O2 Sat (Calc) 63, VBG Base Excess 0, POC Mix VBG pCO2 Pt Tmp 38.3 L, O2 Delivery Device Cannula, Liter Flow 2.0 05/07/20 13:50: Blood Type O POSITIVE 05/07/20 13:50: Hemoglobin A1c 6.2 H 05/07/20 13:50: Total Bilirubin Cancelled, Direct Bilirubin Cancelled, Indirect Bilirubin Cancelled 05/07/20 15:55: Total Bilirubin 1.10 H, Direct Bilirubin 0.45 H, Indirect Bilirubin 0.60 05/08/20 03:55: WBC 13.2 H, RBC 3.91 L, Hgb 11.8 L, Hct 36.7 L, MCV 93.9, MCH 30.2, MCHC 32.2, RDW Std Deviation 44.6 H, RDW Coeff of Kip 13.0, Plt Count 179, MPV 10.5 05/08/20 03:55: Sodium 137, Potassium 4.2, Chloride 105, Carbon Dioxide 26.0, Anion Gap 6, BUN 24 H, Creatinine 1.15, Estim Creat Clear Calc 51.09, Est GFR (MDRD) Af Amer 79, Est GFR (MDRD) Non-Af 66, BUN/Creatinine Ratio 20.9 H, Glucose 176 H, Calcium 8.4 L, Total Bilirubin 0.50, AST 23, ALT 25, Alkaline Phosphatase 90, Total Protein 6.7, Albumin 2.5 L, Globulin 4.2, Albumin/Globulin Ratio 0.6 L Current Medications Acetaminophen (Acetaminophen 325 Mg Tablet) 650 mg PO Q6H PRN PRN PRN Reason: Pain Score 1-10/Temp > 100.7 F Al Hydroxide/Mg Hydroxide (Mag Hydrox/Al Hydrox/Simeth 30 Ml Udc) 30 ml PO Q6H PRN PRN PRN Reason: Gastric Burning Albuterol Sulfate (Albuterol Sulfate 8 Gm Inhaler (60 Puffs)) 2 puff INHALATION Q2H PRN PRN PRN Reason: SOB &/OR WHEEZING Albuterol/Ipratropium (Ipratropium/Albuterol Sulfate 3 Ml Ampul.Neb) 3 ml INHALATION Q4HWA.RT PRN PRN Reason: SOB &/OR WHEEZING Amlodipine Besylate (Amlodipine 10 Mg Tablet) 10 mg PO DAILY [facility] Last Admin: 05/07/20 12:34 Dose: Not Given Documented by: Apixaban (Apixaban 5 Mg Tablet) 5 mg PO BID [facility] Last Admin: 05/07/20 21:48 Dose: 5 mg Documented by: Atorvastatin Calcium (Atorvastatin Calcium 80 Mg Tablet) 80 mg PO QHS [facility] Last Admin: 05/07/20 21:48 Dose: 80 mg Documented by: Carvedilol ([facility] 12.5 Mg [facility] Dexamethasone Sodium Phosphate (Dexamethasone 10 Mg/Ml Vial) 6 mg IV DAILY [facility] Last Admin: 05/07/20 12:40 Dose: 6 mg Documented by: Ceftriaxone Sodium (Rocephin) 1 gm in 50 mls @ 100 mls/hr IV Q24 [facility] Azithromycin 500 mg/ Dextrose 255 mls @ 250 mls/hr IV Q24 [facility] Remdesivir 100 mg/ Sodium (Chloride) 250 mls @ 125 mls/hr IV DAILY [facility]; Protocol Stop: 05/11/20 11:59 Isosorbide Mononitrate (Isosorbide Mononitrate 30 Mg Tablet) 30 mg PO BID [facility] Last Admin: 05/07/20 21:48 Dose: 30 mg Documented by: Loratadine (Loratadine 10 Mg Tablet) 10 mg PO QHS [facility] Last Admin: 05/07/20 22:20 Dose: 10 mg Documented by: Montelukast Sodium (Montelukast 10 Mg Tablet) 10 mg PO DAILY [facility] Last Admin: 05/07/20 12:34 Dose: Not Given Documented by: Nitroglycerin (Nitroglycerin (Inpatient Use) 0.4 Mg Tab.Subl) 0.4 mg SUBLINGUAL Q5M PRN PRN Reason: CHEST Ondansetron HCl (Ondansetron 4 Mg/2 Ml Vial) 4 mg IV Q8H PRN PRN PRN Reason: NAUSEA/VOMITING Oxycodone HCl (Oxycodone 5 Mg Tablet) 5 mg PO Q4H PRN PRN PRN Reason: Pain Score 6-10 Ramipril (Ramipril 10 Mg Capsule) 10 mg PO BID [facility] Last Admin: 05/07/20 21:48 Dose: 10 mg Documented by: Sodium Chloride (0.9% Saline Lock 10 Ml Syringe) 10 - 40 ml IV UD PRN PRN Reason: SALINE FLUSH Last Admin: 05/07/20 21:52 Dose: 20 ml Documented by: STROKE Vital Signs/Narrative: Vital Signs Temp Pulse Resp BP Pulse Ox 05/08/20 06:00 93 23 H 176/85 H 95 05/08/20 05:00 82 29 H 160/76 H 91 05/08/20 04:00 98.4 F 84 22 H 163/83 H 93 Medical Necessity - Tobacco Use Smoking Status: Former smoker Tobacco Use: Cigarettes Assessment/Plan All Active Problems (Last Updated 04/14/20 @ 10:15 by Sheryl Hill) Pneumonia due to SARS-associated coronavirus (Acute) Bilateral pulmonary infiltrates on chest x-ray (Acute) Acute bronchospasm (Acute) Type 2 diabetes mellitus (Acute) Acute respiratory failure with hypoxia (Acute) Hypoxia (Acute) Hyponatremia (Acute) Respiratory failure (Acute) Femoral artery aneurysm, right (Acute) Presence of other cardiac implants and grafts (Resolved) 1. Acute hypoxic respiratory failure secondary to acute COVID-19 pneumonia, appears to have improved Currently on 2 L of oxygen, continue on breathing treatments Continue with breathing treatments, IV steroids, Encourage use of incentive spirometer. Wean off oxygen for SPO2 more than 94% 2. Acute COVID-19 infection/pneumonia with hypoxia, severe Leucocytosis 11.7, elevated D-dimer 2.08, Lactic acid 1.7, Procalcitonin 0.14 On IV dexamethasone and remdesivir. Status post convalescent plasma on 05/07/20 ID and pulmo following 3. Possible pneumonia, wedge-shaped infiltrate seen on x-ray Continued on IV ceftriaxone azithromycin Blood cultures are pending Urine streptococcal and Legionella antigen negative Repeat chest x-ray in a.m. 4. Elevated total bilirubin, bilirubin 2.30, likely secondary to #2 Appears resolved 5. CAD s/p CABG/peripheral artery disease/ischemic cardiomyopathy/status post ICD/status post pacemaker Continue on apixaban, carvedilol, Imdur, rampril 6. COPD, not in acute exacerbation, will monitor 7. Hypertension, controlled, continue on amlodipine, ramipril 8. Status recent left knee replacement, will continue on oxycodone 9. DVT PPx - on Apixaban 10. Code status - Full code Inpatient E&M: 76091 Subs Hosp L2
--- NOTE | 2020-05-08 08:35 | PN_ITS ---
Patient Problems: Active and Suspected Problems (Last Reviewed 03/08/20 @ 10:49 by Sole Tarn) Pneumonia due to SARS-associated coronavirus (Acute) Bilateral pulmonary infiltrates on chest x-ray (Acute) Acute bronchospasm (Acute) Type 2 diabetes mellitus (Acute) Acute respiratory failure with hypoxia (Acute) Hypoxia (Acute) Hyponatremia (Acute) Respiratory failure (Acute) Femoral artery aneurysm, right (Acute) Subjective: Patient did well overnight. No acute issues were reported. Patient overall feels subjectively unchanged compared to previous. Patient has had some elevated blood pressures overnight. Patient did receive his convalescent plasma overnight, but is still only requiring 3 L nasal cannula to maintain saturations. - Physical Exam Vitals/I&O's: Vital Signs Temp Pulse Resp BP Pulse Ox 36.9 C 93 23 H 176/85 H 93 05/08/20 04:00 05/08/20 06:00 05/08/20 06:00 05/08/20 06:00 05/08/20 08:24 Oxygen Flow Rate (L/min) 3 Oxygen Delivery Method Nasal Cannula Weight: 98.2 kg Body Mass Index (BMI) 33.8 Finger Stick Blood Glucose 153 Intake and Output for Last 24 Hours 05/06/20 05/07/20 05/08/20 23:59 23:59 23:59 Intake Total 2224.58 / 2224.58 Output Total 600 / 600 100 / 100 Balance 1624.58 / 1624.58 -100 / -100 General: Alert, Oriented x3, Cooperative, No apparent distress, Well developed, Well nourished, - - Obese. No conversational dyspnea. HEENT: Atraumatic, PERRLA, EOMI, Normocephalic, - - Slight scleral injection without icterus Oral: Moist Mucosa, No Gingival or Mucosal Lesions/ Ulcerations Neck: Supple, No JVD, No Nodes, Trachea Midline Lungs: No rhonchi, No rales, Diminished, Wheezes - Right greater than left, - - Symmetric expansion. No dullness to percussion. Cardiovascular: Regular rate, Regular Rhythm, Normal S1, Normal S2, No murmurs, No rub noted, No Gallop Abdomen: Bowel Sounds Present, Soft, Non Tender, Non-Distended Extremities: No clubbing, No cyanosis, No edema, Capillary Refill Less than 3 Seconds Skin: No rashes, No breakdown Musculoskeletal: No Tenderness to Palpation of Joints or Extremities Lymphatic: No Cervical, Supraclavicular, or Inguinal Adenopathy Neurological: Cranial nerves II-XII grossly intact, Neuro grossly intact, Motor Exam 5/5 strength throughout Psych/Mental Status: Alert and oriented to time, place, person, mood and affect Microbiology Past 72 Hours 05/07/20 20:20 Urine, Clean Catch Legionella Antigen - Final 05/07/20 20:20 Urine, Clean Catch Streptococcus pneumoniae Antigen (M - Final Laboratory Results 05/07/20 07:10: Differential Comment , Platelet Estimate ADEQUATE, RBC Morphology NORM C+C 05/07/20 07:10: Troponin I < 0.015 05/07/20 07:10: B-Natriuretic Peptide 119.0 H 05/07/20 13:50: Blood Type O POSITIVE 05/07/20 13:50: Hemoglobin A1c 6.2 H 05/07/20 13:50: Total Bilirubin Cancelled, Direct Bilirubin Cancelled, Indirect Bilirubin Cancelled 05/07/20 15:55: Total Bilirubin 1.10 H, Direct Bilirubin 0.45 H, Indirect Bilirubin 0.60 05/08/20 03:55: WBC 13.2 H, RBC 3.91 L, Hgb 11.8 L, Hct 36.7 L, MCV 93.9, MCH 30.2, MCHC 32.2, RDW Std Deviation 44.6 H, RDW Coeff of Kip 13.0, Plt Count 179, MPV 10.5 05/08/20 03:55: Sodium 137, Potassium 4.2, Chloride 105, Carbon Dioxide 26.0, Anion Gap 6, BUN 24 H, Creatinine 1.15, Estim Creat Clear Calc 51.09, Est GFR (MDRD) Af Amer 79, Est GFR (MDRD) Non-Af 66, BUN/Creatinine Ratio 20.9 H, Glucose 176 H, Calcium 8.4 L, Total Bilirubin 0.50, AST 23, ALT 25, Alkaline Phosphatase 90, Total Protein 6.7, Albumin 2.5 L, Globulin 4.2, Albumin/Globulin Ratio 0.6 L Current Medications Acetaminophen (Acetaminophen 325 Mg Tablet) 650 mg PO Q6H PRN PRN PRN Reason: Pain Score 1-10/Temp > 100.7 F Al Hydroxide/Mg Hydroxide (Mag Hydrox/Al Hydrox/Simeth 30 Ml Udc) 30 ml PO Q6H PRN PRN PRN Reason: Gastric Burning Albuterol Sulfate (Albuterol Sulfate 8 Gm Inhaler (60 Puffs)) 2 puff INHALATION Q2H PRN PRN PRN Reason: SOB &/OR WHEEZING Albuterol/Ipratropium (Ipratropium/Albuterol Sulfate 3 Ml Ampul.Neb) 3 ml INHALATION Q4HWA.RT PRN PRN Reason: SOB &/OR WHEEZING Amlodipine Besylate (Amlodipine 10 Mg Tablet) 10 mg PO DAILY [facility] Last Admin: 05/07/20 12:34 Dose: Not Given Documented by: Apixaban (Apixaban 5 Mg Tablet) 5 mg PO BID [facility] Last Admin: 05/07/20 21:48 Dose: 5 mg Documented by: Atorvastatin Calcium (Atorvastatin Calcium 80 Mg Tablet) 80 mg PO QHS [facility] Last Admin: 05/07/20 21:48 Dose: 80 mg Documented by: Carvedilol ([facility]ilol 12.5 Mg Tablet) [facility] Dexamethasone Sodium Phosphate (Dexamethasone 10 Mg/Ml Vial) 6 mg IV DAILY [facility] Last Admin: 05/07/20 12:40 Dose: 6 mg Documented by: Ceftriaxone Sodium (Rocephin) 1 gm in 50 mls @ 100 mls/hr IV Q24 [facility] Azithromycin 500 mg/ Dextrose 255 mls @ 250 mls/hr IV Q24 [facility] Remdesivir 100 mg/ Sodium (Chloride) 250 mls @ 125 mls/hr IV DAILY [facility]; Protocol Stop: 05/11/20 11:59 Isosorbide Mononitrate (Isosorbide Mononitrate 30 Mg Tablet) 30 mg PO BID [facility] Last Admin: 05/07/20 21:48 Dose: 30 mg Documented by: Loratadine (Loratadine 10 Mg Tablet) 10 mg PO QHS [facility] Last Admin: 05/07/20 22:20 Dose: 10 mg Documented by: Montelukast Sodium (Montelukast 10 Mg Tablet) 10 mg PO DAILY [facility] Last Admin: 05/07/20 12:34 Dose: Not Given Documented by: Nitroglycerin (Nitroglycerin (Inpatient Use) 0.4 Mg Tab.Subl) 0.4 mg SUBLINGUAL Q5M PRN PRN Reason: CHEST Ondansetron HCl (Ondansetron 4 Mg/2 Ml Vial) 4 mg IV Q8H PRN PRN PRN Reason: NAUSEA/VOMITING Oxycodone HCl (Oxycodone 5 Mg Tablet) 5 mg PO Q4H PRN PRN PRN Reason: Pain Score 6-10 Ramipril (Ramipril 10 Mg Capsule) 10 mg PO BID [facility] Last Admin: 05/07/20 21:48 Dose: 10 mg Documented by: Sodium Chloride (0.9% Saline Lock 10 Ml Syringe) 10 - 40 ml IV UD PRN PRN Reason: SALINE FLUSH Last Admin: 05/07/20 21:52 Dose: 20 ml Documented by: Clinical Impression(s) from Imaging Studies Chest X-Ray 05/07/20 07:05 IMPRESSION: Findings suggestive of a wedge-shaped infiltrate in the lateral aspect of the right mid lung. Electronically Signed: Ramone Salome, at 8:40 EDT , Service support , Medical Necessity - Tobacco Use Smoking Status: Former smoker Tobacco Use: Cigarettes Assessment/Plan All Active Problems (Last Updated 04/14/20 @ 10:15 by Sheryl Hill) Pneumonia due to SARS-associated coronavirus (Acute) Bilateral pulmonary infiltrates on chest x-ray (Acute) Acute bronchospasm (Acute) Type 2 diabetes mellitus (Acute) Acute respiratory failure with hypoxia (Acute) Hypoxia (Acute) Hyponatremia (Acute) Respiratory failure (Acute) Femoral artery aneurysm, right (Acute) Presence of other cardiac implants and grafts (Resolved) RECOMMENDATIONS: 1. Continue Decadron, remdesivir and anticoagulation 2. Continue baseline Eliquis 3. Wean oxygen as tolerated 4. Attempt volume restriction through hospitalization 5. Aggressive bronchodilators. Increase Coreg. IMPRESSIONS: 1. Acute hypoxic respiratory failure secondary to asthma/COPD exacerbation secondary to acute COVID-19 pneumonia Patient requiring Ventimask to maintain saturations at this time. Patient has had bronchodilator response in the past and would benefit from bronchodilators. Patient has been initiated on Decadron therapy. Patient should continue with baseline Eliquis therapy. Patient received convalescent serum on 05/07/2020. Patient is on remdesivir. Patient has had worsening hypertension, but this may be secondary to the Decadron. Wean oxygen as tolerated. Patient may worsen in the first 24 to 48 hours after convalescent serum. We will continue to monitor closely and increase oxygen as necessary. 2. Hyperbilirubinemia Unclear etiology. Patient is not reporting any significant right upper quadrant pain or gallbladder symptoms. Continue to monitor clinically. 3. Obesity/extensive cardiac history/hypertension/history of knee replacement/advanced age Complicates care, management, recovery and prognosis. Okay to continue with baseline medications for now. Patient may have to be titrated up on antihypertensives secondary to Decadron. Monitor renal function closely given MANNY inhibitor. Patient is very clear that he is a full code and wants all measures attempted. Inpatient E&M: [id number] [facility] L3
[2020-05-08] MEDS: dexAMETHasone 10 MG/ML Vial 6 MG IV (10:10)
[2020-05-08] MEDS: Ceftriaxone 1 GM/50 ML BAG IV (10:11)
[2020-05-08] MEDS: Montelukast 10 MG Tablet PO (10:11)
[2020-05-08] MEDS: Isosorbide Mononitrate 30 MG Tablet PO ×2 (10:11→20:39)
[2020-05-08] MEDS: Ramipril 10 MG Capsule PO ×2 (10:11→20:39)
[2020-05-08] MEDS: APIXABAN 5 MG TABLET PO ×2 (10:11→20:40)
[2020-05-08] MEDS: Carvedilol 12.5 MG Tablet PO ×2 (10:12→17:19)
[2020-05-08] MEDS: amLODIPine 10 MG Tablet PO (10:16)
--- NOTE | 2020-05-08 11:40 | CASEMGMT ---
RN CM called patient in room for initial transition planning/care coordination assessment. RN CM introduced self and role at [facility]. Patient is alert and oriented. Patient willing to participate in assessment and is able to answer all questions appropriately. Care providers, pharmacy, and demographics verified. Patient wishes to discharge home, denies need for home health at this time. Patient states he has no further needs or concerns at this time. CM to follow for discharge planning needs that may arise. PCP: Rosie Specialists: Sukhjinder edge roller; obed Russell; Radha manager business banking Preferred Pharmacy: [facility] retail Insurance: [employer] Prescription Benefit: yes Living Will/HPOA: none LNOK: daughter, son Living Arrangements: Patient lives alone in a 1 story home with 2 steps to enter the home. Patient states he is independent at home. Transportation: [facility] DME/HHC: Patient states he has walker and cpap at home. Will monitor need for home oxygen at discharge. Patient would like [employer] after provided list over the phone. Disposition Plan: Patient to discharge home with family support and follow-up plans in place. Shasta HARRIS, RN, CM
[2020-05-08] MEDS: Loratadine 10 MG Tablet PO (20:41)
[2020-05-08] MEDS: Atorvastatin Calcium 80 MG Tablet PO (20:41)
[2020-05-09 02:30] VITALS: BP 133/76; PULSE 85; RESP 18; TEMP 36.4; O2SAT 95
[2020-05-09 06:50] VITALS: O2SAT 88
[2020-05-09 07:32] LABS: Hematocrit 36.5 % (40-54); Hemoglobin 11.7 g/dL (13.0-16.5); Mean Corp Hgb Conc 32.1 g/dL (32-36); Mean Corpuscular Hgb 29.9 pg (27.0-32.0); Mean Corpuscular Volume 93.4 fL (80-94); Mean Platelet Vol. 10.9 fl (6.2-12.0); Platelet Count 188 K/mm3 (150-450); RBC Distribution Width SD 44.6 fl (35.1-43.9); Red Blood Count 3.91 M/mm3 (4.6-6.2); White Blood Count 17.5 K/mm3 (4.4-11.0)
[2020-05-09 08:03] LABS: ALB/GLOB Ratio 0.6 RATIO (0.9-2.4); AST(SGOT) 35 U/L (15-37); Alanine Aminotransfer ALT/SGPT 48 U/L (16-61); Albumin, Serum 2.4 g/dL (3.2-5.0); Alkaline Phosphatase 86 U/L (45-117); Anion Gap 6 (5-15); BUN 25 mg/dL (7-18); BUN/Creat Ratio 30.7 RATIO (10-20); Calcium,Total 8.1 mg/dL (8.5-10.1); Chloride 107 mmol/L (98-107); Creatinine, Serum 0.82 mg/dL (0.70-1.30); EST Glomerular Filtration Rate 98 mL/min (>60); Est Glom Filt Rate - Afr Amer 118 mL/min (>60); Estimated Creatinine Clearance 71.65 ml/min; Globulin 3.9 g/dL (2.2-4.2); Glucose 177 mg/dL (74-106); Potassium 4.2 mmol/L (3.5-5.1); Protein, Total 6.3 g/dL (6.4-8.2); Sodium Level 139 mmol/L (136-145)
[2020-05-09 08:24] VITALS: BP 127/87; PULSE 86; RESP 18; TEMP 36.5; O2SAT 92
[2020-05-09] MEDS: Carvedilol 12.5 MG Tablet PO ×2 (08:32→18:40)
[2020-05-09] MEDS: Ramipril 10 MG Capsule PO ×2 (08:32→21:33)
[2020-05-09] MEDS: dexAMETHasone 10 MG/ML Vial 6 MG IV (08:33)
[2020-05-09] MEDS: Montelukast 10 MG Tablet PO (08:34)
[2020-05-09] MEDS: APIXABAN 5 MG TABLET PO ×2 (08:34→21:33)
[2020-05-09] MEDS: Isosorbide Mononitrate 30 MG Tablet PO ×2 (08:34→21:33)
[2020-05-09] MEDS: amLODIPine 10 MG Tablet PO (08:34)
[2020-05-09] MEDS: 0.9% Saline Lock 10 ML Syringe IV ×4 (08:34→21:42)
--- NOTE | 2020-05-09 10:04 | PCM.PN.PUL ---
Patient Problems: Active and Suspected Problems (Last Reviewed 03/08/20 @ 10:49 by Sole Tran) Pneumonia due to SARS-associated coronavirus (Acute) Bilateral pulmonary infiltrates on chest x-ray (Acute) Acute bronchospasm (Acute) Type 2 diabetes mellitus (Acute) Acute respiratory failure with hypoxia (Acute) Hypoxia (Acute) Hyponatremia (Acute) Respiratory failure (Acute) Femoral artery aneurysm, right (Acute) Subjective: Patient overall is subjectively improved compared to yesterday. Patient continues to require supplemental oxygen and have a nonproductive cough. No chest pain is reported. Patient did report decreased sleep overnight - Physical Exam Vitals/I&O's: Vital Signs Temp Pulse Resp BP Pulse Ox 36.5 C L 86 18 127/87 H 92 05/09/20 08:24 05/09/20 08:24 05/09/20 08:24 05/09/20 08:24 05/09/20 08:24 Oxygen Flow Rate (L/min) 3 Oxygen Delivery Method Nasal Cannula Weight: 98.4 kg Body Mass Index (BMI) 33.8 Finger Stick Blood Glucose 153 Intake and Output for Last 24 Hours 05/07/20 05/08/20 05/09/20 23:59 23:59 22:59 Intake Total 2224.58 / 2224.58 1155 / 1155 Output Total 600 / 600 100 / 100 Balance 1624.58 / 1624.58 1055 / 1055 General: Alert, Oriented x3, Cooperative, No apparent distress, - - No conversational dyspnea. Obese. HEENT: Atraumatic, PERRLA, EOMI, Normocephalic, - - No scleral icterus or injection noted Oral: Moist Mucosa, No Gingival or Mucosal Lesions/ Ulcerations Neck: Supple, No JVD, No Nodes, Trachea Midline Lungs: No rhonchi, No wheeze, No rales, Diminished, - - Symmetric expansion. No dullness to percussion. Cardiovascular: Normal S1, Normal S2, No murmurs, Irregular Rate, No rub noted, No Gallop Abdomen: Bowel Sounds Present, Soft, Non Tender, Non-Distended, Obese Extremities: No clubbing, No cyanosis, No edema, Capillary Refill Less than 3 Seconds Skin: No rashes, No breakdown Musculoskeletal: No Tenderness to Palpation of Joints or Extremities Lymphatic: No Cervical, Supraclavicular, or Inguinal Adenopathy Neurological: Cranial nerves II-XII grossly intact, Neuro grossly intact, Motor Exam 5/5 strength throughout Psych/Mental Status: Alert and oriented to time, place, person, mood and affect Microbiology Past 72 Hours 05/07/20 07:22 Blood Culture (Wb) - Anticubital Left Blood Culture - Preliminary No growth in 48 hours. 05/07/20 07:10 Blood Culture (Wb) - Anticubital Right Blood Culture - Preliminary No growth in 48 hours. 05/07/20 20:20 Urine, Clean Catch Legionella Antigen - Final 05/07/20 20:20 Urine, Clean Catch Streptococcus pneumoniae Antigen (M - Final Laboratory Results 05/09/20 06:41: WBC 17.5 H, RBC 3.91 L, Hgb 11.7 L, Hct 36.5 L, MCV 93.4, MCH 29.9, MCHC 32.1, RDW Std Deviation 44.6 H, RDW Coeff of Kip 13.0, Plt Count 188, MPV 10.9 05/09/20 06:41: Sodium 139, Potassium 4.2, Chloride 107, Carbon Dioxide 26.0, Anion Gap 6, BUN 25 H, Creatinine 0.82, Estim Creat Clear Calc 71.65, Est GFR (MDRD) Af Amer 118, Est GFR (MDRD) Non-Af 98, BUN/Creatinine Ratio 30.7 H, Glucose 177 H, Calcium 8.1 L, Total Bilirubin 0.50, AST 35, ALT 48, Alkaline Phosphatase 86, Total Protein 6.3 L, Albumin 2.4 L, Globulin 3.9, Albumin/Globulin Ratio 0.6 L Current Medications Acetaminophen (Acetaminophen 325 Mg Tablet) 650 mg PO Q6H PRN PRN PRN Reason: Pain Score 1-10/Temp > 100.7 F Al Hydroxide/Mg Hydroxide (Mag Hydrox/Al Hydrox/Simeth 30 Ml Udc) 30 ml PO Q6H PRN PRN PRN Reason: Gastric Burning Albuterol Sulfate (Albuterol Sulfate 8 Gm Inhaler (60 Puffs)) 2 puff INHALATION Q2H PRN PRN PRN Reason: SOB &/OR WHEEZING Albuterol/Ipratropium (Ipratropium/Albuterol Sulfate 3 Ml Ampul.Neb) 3 ml INHALATION Q4HWA.RT PRN PRN Reason: SOB &/OR WHEEZING Amlodipine Besylate (Amlodipine 10 Mg Tablet) 10 mg PO DAILY [facility] Last Admin: 05/09/20 08:34 Dose: 10 mg Documented by: Apixaban (Apixaban 5 Mg Tablet) 5 mg PO BID [facility] Last Admin: 05/09/20 08:34 Dose: 5 mg Documented by: Atorvastatin Calcium (Atorvastatin Calcium 80 Mg Tablet) 80 mg PO QHS [facility] Last Admin: 05/08/20 20:41 Dose: 80 mg Documented by: Carvedilol (Carvedilol 12.5 Mg Tablet) 12.5 mg PO BIDCM [facility] Last Admin: 05/09/20 08:32 Dose: 12.5 mg Documented by: Dexamethasone Sodium Phosphate (Dexamethasone 10 Mg/Ml Vial) 6 mg IV DAILY [facility] Last Admin: 05/09/20 08:33 Dose: 6 mg Documented by: Ceftriaxone Sodium (Rocephin) 1 gm in 50 mls @ 100 mls/hr IV Q24 [facility] Last Infusion: 05/08/20 10:44 Dose: Infused Documented by: Azithromycin 500 mg/ Dextrose 255 mls @ 250 mls/hr IV Q24 [facility] Last Infusion: 05/08/20 15:33 Dose: Infused Documented by: Remdesivir 100 mg/ Sodium (Chloride) 250 mls @ 125 mls/hr IV DAILY [facility]; Protocol Stop: 05/11/20 11:59 Last Infusion: 05/08/20 19:54 Dose: Infused Documented by: Isosorbide Mononitrate (Isosorbide Mononitrate 30 Mg Tablet) 30 mg PO BID [facility] Last Admin: 05/09/20 08:34 Dose: 30 mg Documented by: Loratadine (Loratadine 10 Mg Tablet) 10 mg PO QHS [facility] Last Admin: 05/08/20 20:41 Dose: 10 mg Documented by: Montelukast Sodium (Montelukast 10 Mg Tablet) 10 mg PO DAILY [facility] Last Admin: 05/09/20 08:34 Dose: 10 mg Documented by: Nitroglycerin (Nitroglycerin (Inpatient Use) 0.4 Mg Tab.Subl) 0.4 mg SUBLINGUAL Q5M PRN PRN Reason: CHEST Ondansetron HCl (Ondansetron 4 Mg/2 Ml Vial) 4 mg IV Q8H PRN PRN PRN Reason: NAUSEA/VOMITING Oxycodone HCl (Oxycodone 5 Mg Tablet) 5 mg PO Q4H PRN PRN PRN Reason: Pain Score 6-10 Ramipril (Ramipril 10 Mg Capsule) 10 mg PO BID [facility] Last Admin: 05/09/20 08:32 Dose: 10 mg Documented by: Sodium Chloride (0.9% Saline Lock 10 Ml Syringe) 10 - 40 ml IV UD PRN PRN Reason: SALINE FLUSH Last Admin: 05/09/20 08:34 Dose: 10 ml Documented by: Medical Necessity - Tobacco Use Smoking Status: Former smoker Tobacco Use: Cigarettes Assessment/Plan All Active Problems (Last Updated 04/14/20 @ 10:15 by Sheryl Hill) Pneumonia due to SARS-associated coronavirus (Acute) Bilateral pulmonary infiltrates on chest x-ray (Acute) Acute bronchospasm (Acute) Type 2 diabetes mellitus (Acute) Acute respiratory failure with hypoxia (Acute) Hypoxia (Acute) Hyponatremia (Acute) Respiratory failure (Acute) Femoral artery aneurysm, right (Acute) Presence of other cardiac implants and grafts (Resolved) RECOMMENDATIONS: 1. Continue Decadron, remdesivir and anticoagulation 2. Continue baseline Eliquis 3. Wean oxygen as tolerated 4. Attempt volume restriction through hospitalization 5. Aggressive bronchodilators. Continued increase in Coreg. 6. Discussed with ID tomorrow about discharge prior to completion of remdesivir course IMPRESSIONS: 1. Acute hypoxic respiratory failure secondary to asthma/COPD exacerbation secondary to acute COVID-19 pneumonia Patient requiring Ventimask to maintain saturations at this time. Patient has had bronchodilator response in the past and would benefit from bronchodilators. Patient has been initiated on Decadron therapy. Patient should continue with baseline Eliquis therapy. Patient received convalescent serum on 05/07/2020. Patient is on remdesivir. Patient responded well to increase in Coreg. We will continue this for now. Wean oxygen as tolerated. We will continue to monitor closely and increase oxygen as necessary. Patient continues to do well tomorrow, could consider discharge prior to completion of remdesivir course. Leukocytosis likely secondary to steroids 2. Hyperbilirubinemia Unclear etiology. Patient is not reporting any significant right upper quadrant pain or gallbladder symptoms. Continue to monitor clinically. 3. Obesity/extensive cardiac history/hypertension/history of knee replacement/advanced age Complicates care, management, recovery and prognosis. Okay to continue with baseline medications for now. Patient may have to be titrated up on antihypertensives secondary to Decadron. Monitor renal function closely given MANNY inhibitor. Patient is very clear that he is a full code and wants all measures attempted. Inpatient E&M: 07986 Subs Hosp L2
--- NOTE | 2020-05-09 13:11 | PN_ITS ---
Patient Problems: Active and Suspected Problems (Last Reviewed 03/08/20 @ 10:49 by Sole Tran) Pneumonia due to SARS-associated coronavirus (Acute) Bilateral pulmonary infiltrates on chest x-ray (Acute) Acute bronchospasm (Acute) Type 2 diabetes mellitus (Acute) Acute respiratory failure with hypoxia (Acute) Hypoxia (Acute) Hyponatremia (Acute) Respiratory failure (Acute) Femoral artery aneurysm, right (Acute) Reason for Visit: Follow-up on respiratory failure/COVID-19 infection/pneumonia Subjective: Patient was seen and examined. Remains on 3 L of oxygen. Stated he feels improved. Denies any fever or chills. Objective: Physical exam: General: Alert, Oriented x3, Cooperative, No apparent distress, - - No conversational dyspnea, on 3 L oxygen, appears comfortable HEENT: Atraumatic, PERRLA, EOMI, Normocephalic Oral: Moist Mucosa Neck: Supple Lungs: Clear to auscultation, Normal air movement, - - midsternal scar from CABG Cardiovascular: Regular rate, Regular Rhythm, Normal S1, Normal S2, No murmurs Abdomen: Bowel Sounds Present, Soft, Non Tender, Non-Distended, No Hepato- splenomegaly Extremities: No edema Skin: No rashes Musculoskeletal: No Tenderness to Palpation of Joints or Extremities Lymphatic: No Cervical, Supraclavicular, or Inguinal Adenopathy Neurological: Cranial nerves II-XII grossly intact, Neuro grossly intact Psych/Mental Status: Normal Affect, Appropriate Vitals/I&O's: Vital Signs Temp Pulse Resp BP Pulse Ox 97.7 F L 86 18 127/87 H 92 05/09/20 08:24 05/09/20 08:24 05/09/20 08:24 05/09/20 08:24 05/09/20 08:24 Oxygen Flow Rate (L/min) 3 Oxygen Delivery Method Nasal Cannula Weight: 98.4 kg Body Mass Index (BMI) 33.8 Finger Stick Blood Glucose 153 Intake and Output for Last 24 Hours 05/07/20 05/08/20 05/09/20 23:59 23:59 22:59 Intake Total 2224.58 / 2224.58 1155 / 1155 Output Total 600 / 600 100 / 100 Balance 1624.58 / 1624.58 1055 / 1055 Microbiology Past 72 Hours 05/07/20 07:22 Blood Culture (Wb) - Anticubital Left Blood Culture - Preliminary No growth in 48 hours. 05/07/20 07:10 Blood Culture (Wb) - Anticubital Right Blood Culture - Preliminary No growth in 48 hours. 05/07/20 20:20 Urine, Clean Catch Legionella Antigen - Final 05/07/20 20:20 Urine, Clean Catch Streptococcus pneumoniae Antigen (M - Final Laboratory Results 05/09/20 06:41: WBC 17.5 H, RBC 3.91 L, Hgb 11.7 L, Hct 36.5 L, MCV 93.4, MCH 29.9, MCHC 32.1, RDW Std Deviation 44.6 H, RDW Coeff of Kip 13.0, Plt Count 188, MPV 10.9 05/09/20 06:41: Sodium 139, Potassium 4.2, Chloride 107, Carbon Dioxide 26.0, Anion Gap 6, BUN 25 H, Creatinine 0.82, Estim Creat Clear Calc 71.65, Est GFR (MDRD) Af Amer 118, Est GFR (MDRD) Non-Af 98, BUN/Creatinine Ratio 30.7 H, Glucose 177 H, Calcium 8.1 L, Total Bilirubin 0.50, AST 35, ALT 48, Alkaline Phosphatase 86, Total Protein 6.3 L, Albumin 2.4 L, Globulin 3.9, Albumin/ Globulin Ratio 0.6 L Current Medications Acetaminophen (Acetaminophen 325 Mg Tablet) 650 mg PO Q6H PRN PRN PRN Reason: Pain Score 1-10/Temp > 100.7 F Al Hydroxide/Mg Hydroxide (Mag Hydrox/Al Hydrox/Simeth 30 Ml Udc) 30 ml PO Q6H PRN PRN PRN Reason: Gastric Burning Albuterol Sulfate (Albuterol Sulfate 8 Gm Inhaler (60 Puffs)) 2 puff INHALATION Q2H PRN PRN PRN Reason: SOB &/OR WHEEZING Albuterol/Ipratropium (Ipratropium/Albuterol Sulfate 3 Ml Ampul.Neb) 3 ml INHALATION Q4HWA.RT PRN PRN Reason: SOB &/OR WHEEZING Amlodipine Besylate (Amlodipine 10 Mg Tablet) 10 mg PO DAILY [facility] Last Admin: 05/09/20 08:34 Dose: 10 mg Documented by: Apixaban (Apixaban 5 Mg Tablet) 5 mg PO BID [facility] Last Admin: 05/09/20 08:34 Dose: 5 mg Documented by: Atorvastatin Calcium (Atorvastatin Calcium 80 Mg Tablet) 80 mg PO QHS [facility] Last Admin: 05/08/20 20:41 Dose: 80 mg Documented by: Carvedilol ([facility]5 [facility] Last Admin: 05/09/20 08:32 Dose: 12.5 mg Documented by: Dexamethasone Sodium Phosphate (Dexamethasone 10 Mg/Ml Vial) 6 mg IV DAILY [facility] Last Admin: 05/09/20 08:33 Dose: 6 mg Documented by: Ceftriaxone Sodium (Rocephin) 1 gm in 50 mls @ 100 mls/hr IV Q24 [facility] Last Infusion: 05/08/20 10:44 Dose: Infused Documented by: Azithromycin 500 mg/ Dextrose 255 mls @ 250 mls/hr IV Q24 [facility] Last Admin: 05/09/20 10:25 Dose: 250 mls/hr Documented by: Remdesivir 100 mg/ Sodium (Chloride) 250 mls @ 125 mls/hr IV DAILY [facility]; Protocol Stop: 05/11/20 11:59 Last Infusion: 05/08/20 19:54 Dose: Infused Documented by: Isosorbide Mononitrate (Isosorbide Mononitrate 30 Mg Tablet) 30 mg PO BID [facility] Last Admin: 05/09/20 08:34 Dose: 30 mg Documented by: Loratadine (Loratadine 10 Mg Tablet) 10 mg PO QHS [facility] Last Admin: 05/08/20 20:41 Dose: 10 mg Documented by: Montelukast Sodium (Montelukast 10 Mg Tablet) 10 mg PO DAILY [facility] Last Admin: 05/09/20 08:34 Dose: 10 mg Documented by: Nitroglycerin (Nitroglycerin (Inpatient Use) 0.4 Mg Tab.Subl) 0.4 mg SUBLINGUAL Q5M PRN PRN Reason: CHEST Ondansetron HCl (Ondansetron 4 Mg/2 Ml Vial) 4 mg IV Q8H PRN PRN PRN Reason: NAUSEA/VOMITING Oxycodone HCl (Oxycodone 5 Mg Tablet) 5 mg PO Q4H PRN PRN PRN Reason: Pain Score 6-10 Ramipril (Ramipril 10 Mg Capsule) 10 mg PO BID [facility] Last Admin: 05/09/20 08:32 Dose: 10 mg Documented by: Sodium Chloride (0.9% Saline Lock 10 Ml Syringe) 10 - 40 ml IV UD PRN PRN Reason: SALINE FLUSH Last Admin: 05/09/20 10:25 Dose: 10 ml Documented by: Medical Necessity - Tobacco Use Smoking Status: Former smoker Tobacco Use: Cigarettes Assessment/Plan All Active Problems (Last Updated 04/14/20 @ 10:15 by Sheryl Hill) Pneumonia due to SARS-associated coronavirus (Acute) Bilateral pulmonary infiltrates on chest x-ray (Acute) Acute bronchospasm (Acute) Type 2 diabetes mellitus (Acute) Acute respiratory failure with hypoxia (Acute) Hypoxia (Acute) Hyponatremia (Acute) Respiratory failure (Acute) Femoral artery aneurysm, right (Acute) Presence of other cardiac implants and grafts (Resolved) 74-year-old male who was admitted on 05/07/20 with progressive shortness of breath of 5 days 1. Acute hypoxic respiratory failure secondary to acute COVID-19 pneumonia, appears to have improved Currently on 2 L of oxygen, continue on breathing treatments Continue with breathing treatments, IV steroids, Encourage use of incentive spirometer. Wean off oxygen for SPO2 more than 94% 2. Acute COVID-19 infection/pneumonia with hypoxia, severe Leucocytosis 11.7, elevated D-dimer 2.08, Lactic acid 1.7, Procalcitonin 0.14 On IV dexamethasone and remdesivir. Status post convalescent plasma on 05/07/20 ID and pulmo following 3. Possible pneumonia, wedge-shaped infiltrate seen on x-ray Continued on IV ceftriaxone azithromycin Blood cultures are pending Urine streptococcal and Legionella antigen negative Repeat chest x-ray pending 4. Elevated total bilirubin, bilirubin 2.30, likely secondary to #2 Appears resolved 5. CAD s/p CABG/peripheral artery disease/ischemic cardiomyopathy/status post ICD/status post pacemaker Continue on apixaban, carvedilol, Imdur, rampril 6. COPD, not in acute exacerbation, will monitor 7. Hypertension, controlled, continue on amlodipine, ramipril 8. Status recent left knee replacement, will continue on oxycodone 9. DVT PPx - on Apixaban 10. Code status - Full code Inpatient E&M: 43428 Subs Hosp L2
[2020-05-09] MEDS: Ceftriaxone 1 GM/50 ML BAG IV (13:52)
[2020-05-09 16:33] VITALS: BP 150/76; PULSE 88; RESP 17; TEMP 36.4; O2SAT 89
[2020-05-09 18:34] VITALS: BP 138/81; PULSE 88; RESP 18; TEMP 36.2; O2SAT 90
[2020-05-09 21:28] VITALS: BP 141/77; PULSE 82; RESP 18; TEMP 36.5; O2SAT 92
[2020-05-09] MEDS: Atorvastatin Calcium 80 MG Tablet PO (21:33)
[2020-05-09] MEDS: Loratadine 10 MG Tablet PO (21:33)
[2020-05-09] MEDS: MELATONIN 3 MG TABLET PO (21:44)
[2020-05-10] VITALS (8 sets, daily range): BP systolic 132–156; BP diastolic 74–85; PULSE 80–94; RESP 16–24; TEMP 36.1–36.9; O2SAT 89–94
[2020-05-10] MEDS: oxyCODONE 5 MG Tablet PO ×2 (04:24→22:06)
--- NOTE | 2020-05-10 05:55 | RAD_ITS ---
STUDY: X-RAY CHEST REASON FOR EXAM: Male, 74 years old. COUGH -- ACUTE COVID 19 TECHNIQUE: Single AP portable view of the chest. COMPARISON: Comparison is made with prior study dated 05/07/2020. FINDINGS: Since prior study, there has been progressive infiltrate in the right upper lobe as well as in the lingular segment of the left upper lobe. There is no demonstrated pleural abnormality. Sternal cerclage wires and vascular clips are present from a prior sternotomy and coronary artery bypass graft procedure (CABG). A dual-chamber pacemaker is seen. Normal mediastinum and debbie. Normal visualized pulmonary arteries. There is atherosclerotic calcification of the aortic arch with tortuosity. Normal visualized thoracic spine. Normal visualized ribs, clavicles, and shoulders. There is no demonstrated abnormality of the visualized soft tissue structures of the upper abdomen. RAD/Chest 1 View (Portable) IMPRESSION: Progressive right upper lobe and lingular infiltrates. Electronically Signed: Ramone Mcmahon, at 10:07 EST , Service support ,
[2020-05-10 07:01] LABS: Hematocrit 35.2 % (40-54); Hemoglobin 11.3 g/dL (13.0-16.5); Mean Corp Hgb Conc 32.1 g/dL (32-36); Mean Corpuscular Hgb 29.9 pg (27.0-32.0); Mean Corpuscular Volume 93.1 fL (80-94); Mean Platelet Vol. 10.9 fl (6.2-12.0); Platelet Count 201 K/mm3 (150-450); RBC Distribution Width CV 12.8 % (11.6-14.6); RBC Distribution Width SD 43.9 fl (35.1-43.9); Red Blood Count 3.78 M/mm3 (4.6-6.2); White Blood Count 15.8 K/mm3 (4.4-11.0)
[2020-05-10 07:36] LABS: ALB/GLOB Ratio 0.6 RATIO (0.9-2.4); AST(SGOT) 33 U/L (15-37); Alanine Aminotransfer ALT/SGPT 58 U/L (16-61); Albumin, Serum 2.3 g/dL (3.2-5.0); Alkaline Phosphatase 97 U/L (45-117); Anion Gap 6 (5-15); BUN 24 mg/dL (7-18); BUN/Creat Ratio 29.6 RATIO (10-20); Chloride 107 mmol/L (98-107); Creatinine, Serum 0.81 mg/dL (0.70-1.30); EST Glomerular Filtration Rate 98 mL/min (>60); Est Glom Filt Rate - Afr Amer 119 mL/min (>60); Estimated Creatinine Clearance 72.54 ml/min; Globulin 3.7 g/dL (2.2-4.2); Glucose 215 mg/dL (74-106); Potassium 4.2 mmol/L (3.5-5.1); Sodium Level 139 mmol/L (136-145)
--- NOTE | 2020-05-10 07:50 | PCM.PN.HOSP ---
Patient Problems: Active and Suspected Problems (Last Reviewed 03/08/20 @ 10:49 by Sole Tran) Pneumonia due to SARS-associated coronavirus (Acute) Bilateral pulmonary infiltrates on chest x-ray (Acute) Acute bronchospasm (Acute) Type 2 diabetes mellitus (Acute) Acute respiratory failure with hypoxia (Acute) Hypoxia (Acute) Hyponatremia (Acute) Respiratory failure (Acute) Femoral artery aneurysm, right (Acute) Reason for Visit: acute hypoxic respiratory failure secondary to acute COVID-19 pneumonia Subjective: 74-year-old male admitted with progressive shortness of breath diagnosed with acute hypoxic respiratory failure secondary to acute COVID-19 pneumonia Patient complains of constipation initiated stool softeners Objective: GENERAL: cooperative HEENT: Atraumatic; EYES; Anicteric, Normal Conjunctiva NECK; supple, normal thyroid, RESPIRATORY: Diminished to auscultation CARDIOVASCULAR: Regular S1 S2, GI: soft, normoactive bowel sounds, : No Renal angle tenderness; EXTREMITIES: No edema, no clubbing, MUSCULOSKELETAL: no muscle waisting NEURO: Awake; no lateralizing signs. SKIN: No Rash PSYCH; Flat affect Vitals/I&O's: Vital Signs Temp Pulse Resp BP Pulse Ox 97.2 F L 85 16 144/82 H 92 05/10/20 03:03 05/10/20 03:03 05/10/20 03:03 05/10/20 03:03 05/10/20 03:03 Oxygen Flow Rate (L/min) 4 Oxygen Delivery Method Nasal Cannula Weight: 98.2 kg Body Mass Index (BMI) 33.8 Finger Stick Blood Glucose 153 Intake and Output for Last 24 Hours 05/09/20 05/09/20 05/10/20 00:59 23:59 23:59 Intake Total Output Total 350 / 350 Balance -350 / -350 Microbiology Past 72 Hours 05/07/20 07:22 Blood Culture (Wb) - Anticubital Left Blood Culture - Preliminary No growth in 48 hours. 05/07/20 07:10 Blood Culture (Wb) - Anticubital Right Blood Culture - Preliminary No growth in 48 hours. 05/07/20 20:20 Urine, Clean Catch Legionella Antigen - Final 05/07/20 20:20 Urine, Clean Catch Streptococcus pneumoniae Antigen (M - Final Laboratory Results 05/09/20 06:41: Sodium 139, Potassium 4.2, Chloride 107, Carbon Dioxide 26.0, Anion Gap 6, BUN 25 H, Creatinine 0.82, Estim Creat Clear Calc 71.65, Est GFR (MDRD) Af Amer 118, Est GFR (MDRD) Non-Af 98, BUN/Creatinine Ratio 30.7 H, Glucose 177 H, Calcium 8.1 L, Total Bilirubin 0.50, AST 35, ALT 48, Alkaline Phosphatase 86, Total Protein 6.3 L, Albumin 2.4 L, Globulin 3.9, Albumin/Globulin Ratio 0.6 L 05/10/20 05:35: WBC 15.8 H, RBC 3.78 L, Hgb 11.3 L, Hct 35.2 L, MCV 93.1, MCH 29.9, MCHC 32.1, RDW Std Deviation 43.9, RDW Coeff of Kip 12.8, Plt Count 201, MPV 10.9 05/10/20 05:35: Sodium 139, Potassium 4.2, Chloride 107, Carbon Dioxide 26.0, Anion Gap 6, BUN 24 H, Creatinine 0.81, Estim Creat Clear Calc 72.54, Est GFR (MDRD) Af Amer 119, Est GFR (MDRD) Non-Af 98, BUN/Creatinine Ratio 29.6 H, Glucose 215 H, Calcium 8.0 L, Total Bilirubin 0.40, AST 33, ALT 58, Alkaline Phosphatase 97, Total Protein 6.0 L, Albumin 2.3 L, Globulin 3.7, Albumin/Globulin Ratio 0.6 L Current Medications Acetaminophen (Acetaminophen 325 Mg Tablet) 650 mg PO Q6H PRN PRN PRN Reason: Pain Score 1-10/Temp > 100.7 F Al Hydroxide/Mg Hydroxide (Mag Hydrox/Al Hydrox/Simeth 30 Ml Udc) 30 ml PO Q6H PRN PRN PRN Reason: Gastric Burning Albuterol Sulfate (Albuterol Sulfate 8 Gm Inhaler (60 Puffs)) 2 puff INHALATION Q2H PRN PRN PRN Reason: SOB &/OR WHEEZING Albuterol/Ipratropium (Ipratropium/Albuterol Sulfate 3 Ml Ampul.Neb) 3 ml INHALATION Q4HWA.RT PRN PRN Reason: SOB &/OR WHEEZING Amlodipine Besylate (Amlodipine 10 Mg Tablet) 10 mg PO DAILY [facility] Last Admin: 05/09/20 08:34 Dose: 10 mg Documented by: Apixaban (Apixaban 5 Mg Tablet) 5 mg PO BID [facility] Last Admin: 05/09/20 21:33 Dose: 5 mg Documented by: Atorvastatin Calcium (Atorvastatin Calcium 80 Mg Tablet) 80 mg PO QHS [facility] Last Admin: 05/09/20 21:33 Dose: 80 mg Documented by: Carvedilol ([facility] 12.5 Mg Tablet) [facility] Last Admin: 05/09/20 18:40 Dose: 12.5 mg Documented by: Dexamethasone Sodium Phosphate (Dexamethasone 10 Mg/Ml Vial) 6 mg IV DAILY [facility] Last Admin: 05/09/20 08:33 Dose: 6 mg Documented by: Ceftriaxone Sodium (Rocephin) 1 gm in 50 mls @ 100 mls/hr IV Q24 [facility] Last Infusion: 05/09/20 14:25 Dose: Infused Documented by: Azithromycin 500 mg/ Dextrose 255 mls @ 250 mls/hr IV Q24 [facility] Last Infusion: 05/09/20 11:30 Dose: Infused Documented by: Remdesivir 100 mg/ Sodium (Chloride) 250 mls @ 125 mls/hr IV DAILY [facility]; Protocol Stop: 05/11/20 11:59 Last Infusion: 05/09/20 19:31 Dose: Infused Documented by: Isosorbide Mononitrate (Isosorbide Mononitrate 30 Mg Tablet) 30 mg PO BID [facility] Last Admin: 05/09/20 21:33 Dose: 30 mg Documented by: Loratadine (Loratadine 10 Mg Tablet) 10 mg PO QHS [facility] Last Admin: 05/09/20 21:33 Dose: 10 mg Documented by: Melatonin (Melatonin 3 Mg Tablet) 3 mg PO QHS [facility] Last Admin: 05/09/20 21:44 Dose: 3 mg Documented by: Montelukast Sodium (Montelukast 10 Mg Tablet) 10 mg PO DAILY [facility] Last Admin: 05/09/20 08:34 Dose: 10 mg Documented by: Nitroglycerin (Nitroglycerin (Inpatient Use) 0.4 Mg Tab.Subl) 0.4 mg SUBLINGUAL Q5M PRN PRN Reason: CHEST Ondansetron HCl (Ondansetron 4 Mg/2 Ml Vial) 4 mg IV Q8H PRN PRN PRN Reason: NAUSEA/VOMITING Oxycodone HCl (Oxycodone 5 Mg Tablet) 5 mg PO Q4H PRN PRN PRN Reason: Pain Score 6-10 Last Admin: 05/10/20 04:24 Dose: 5 mg Documented by: Ramipril (Ramipril 10 Mg Capsule) 10 mg PO BID [facility] Last Admin: 05/09/20 21:33 Dose: 10 mg Documented by: Sodium Chloride (0.9% Saline Lock 10 Ml Syringe) 10 - 40 ml IV UD PRN PRN Reason: SALINE FLUSH Last Admin: 05/09/20 21:42 Dose: 10 ml Documented by: Medical Necessity - Tobacco Use Smoking Status: Former smoker Tobacco Use: Cigarettes Assessment/Plan All Active Problems (Last Updated 04/14/20 @ 10:15 by Sheryl Hill) Pneumonia due to SARS-associated coronavirus (Acute) Bilateral pulmonary infiltrates on chest x-ray (Acute) Acute bronchospasm (Acute) Type 2 diabetes mellitus (Acute) Acute respiratory failure with hypoxia (Acute) Hypoxia (Acute) Hyponatremia (Acute) Respiratory failure (Acute) Femoral artery aneurysm, right (Acute) Presence of other cardiac implants and grafts (Resolved) 74-year-old male admitted with progressive shortness of breath diagnosed with acute hypoxic respiratory failure secondary to acute COVID-19 pneumonia 1. Acute hypoxic respiratory failure Secondary to acute COVID-19 pneumonia. Patient has been managed with aerosol treatments and steroid in addition to supplemental oxygen. Patient did receive convalescent plasma on 05/07/2020 and remdesivir ?Do plan to ambulate patient and if oxygen requirement stays above 92 patient may be discharged home with supplemental oxygen 2. Coronary artery disease ?Status post CABG 3. Ischemic cardiomyopathy -status post AICD placement 4. 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 Paroxysmal atrial flutter ?Rate controlled on systemic anticoagulation with Eliquis 6. Peripheral arterial disease ?Patient is on systemic anticoagulation 7. Hypertension - Blood pressure controlled, home medications continued with dose adjustment as needed 8. COPD ?aerosol treatments as needed 9. Left total knee arthroplasty Status post CT guided Robotic Assisted left TKA on 03/30/20 10. DVT prophylaxis Apixaban Inpatient E&M: [id number] [facility] Hosp L2
--- NOTE | 2020-05-10 08:54 | PCM.PN.PUL ---
Patient Problems: Active and Suspected Problems (Last Reviewed 03/08/20 @ 10:49 by Sole Tran) Pneumonia due to SARS-associated coronavirus (Acute) Bilateral pulmonary infiltrates on chest x-ray (Acute) Acute bronchospasm (Acute) Type 2 diabetes mellitus (Acute) Acute respiratory failure with hypoxia (Acute) Hypoxia (Acute) Hyponatremia (Acute) Respiratory failure (Acute) Femoral artery aneurysm, right (Acute) Subjective: The patient was seen and examined at the bedside this morning. Events from the last 24 hours have been reviewed. The patient is currently afebrile, hemodynamically stable and maintaining appropriate oxygen saturations on 4 L/min via nasal cannula. The patient is currently documented to be overall net +2.8 L for the hospital admission. The patient is overall feeling somewhat better, but still has some residual shortness of breath and nonproductive cough. Objective: The patient's most recent lab work, culture data and imaging studies have all been personally reviewed. - Physical Exam Vitals/I&O's: Vital Signs Temp Pulse Resp BP Pulse Ox 97.2 F L 85 16 144/82 H 92 05/10/20 03:03 05/10/20 03:03 05/10/20 03:03 05/10/20 03:03 05/10/20 03:03 Oxygen Flow Rate (L/min) 4 Oxygen Delivery Method Nasal Cannula Weight: 216 lb 7.903 oz Body Mass Index (BMI) 33.8 Finger Stick Blood Glucose 153 Intake and Output for Last 24 Hours 05/09/20 05/09/20 05/10/20 00:59 23:59 23:59 Intake Total Output Total 350 / 350 Balance -350 / -350 General: Alert, Cooperative, No apparent distress HEENT: Atraumatic, Normocephalic Oral: No Gingival or Mucosal Lesions/ Ulcerations Neck: Supple, No Nodes, Trachea Midline Lungs: Diminished Cardiovascular: Normal S1, Normal S2, Irregular Rate Abdomen: Bowel Sounds Present, Soft, Non Tender, Obese Extremities: No clubbing, No cyanosis, No edema Skin: No breakdown Musculoskeletal: No Tenderness to Palpation of Joints or Extremities Lymphatic: No Cervical, Supraclavicular, or Inguinal Adenopathy Neurological: Cranial nerves II-XII grossly intact, Neuro grossly intact Psych/Mental Status: Normal Affect, Appropriate Labs (Last 48 Hours) 05/09/20 05/09/20 05/10/20 06:41 06:41 05:35 WBC 17.5 H 15.8 H RBC 3.91 L 3.78 L Hgb 11.7 L 11.3 L Hct 36.5 L 35.2 L MCV 93.4 93.1 MCH 29.9 29.9 MCHC 32.1 32.1 RDW Std Deviation 44.6 H 43.9 RDW Coeff of Kip 13.0 12.8 Plt Count 188 201 MPV 10.9 10.9 Sodium 139 Potassium 4.2 Chloride 107 Carbon Dioxide 26.0 Anion Gap 6 BUN 25 H Creatinine 0.82 Estim Creat Clear Calc 71.65 Est GFR (MDRD) Af Amer 118 Est GFR (MDRD) Non-Af 98 BUN/Creatinine Ratio 30.7 H Glucose 177 H Calcium 8.1 L Total Bilirubin 0.50 AST 35 ALT 48 Alkaline Phosphatase 86 Total Protein 6.3 L Albumin 2.4 L Globulin 3.9 Albumin/Globulin Ratio 0.6 L 05/10/20 05:35 WBC RBC Hgb Hct MCV MCH MCHC RDW Std Deviation RDW Coeff of Kip Plt Count MPV Sodium 139 Potassium 4.2 Chloride 107 Carbon Dioxide 26.0 Anion Gap 6 BUN 24 H Creatinine 0.81 Estim Creat Clear Calc 72.54 Est GFR (MDRD) Af Amer 119 Est GFR (MDRD) Non-Af 98 BUN/Creatinine Ratio 29.6 H Glucose 215 H Calcium 8.0 L Total Bilirubin 0.40 AST 33 ALT 58 Alkaline Phosphatase 97 Total Protein 6.0 L Albumin 2.3 L Globulin 3.7 Albumin/Globulin Ratio 0.6 L Microbiology 05/07/20 07:22 Blood Culture (Wb) - Anticubital Left Blood Culture - Preliminary No growth in 48 hours. Clinical Impression(s) from Imaging Studies Chest X-Ray 05/07/20 07:05 IMPRESSION: Findings suggestive of a wedge-shaped infiltrate in the lateral aspect of the right mid lung. Electronically Signed: Ramone Mcmahon, at 8:40 EDT , Service support , 05/07/20 07:10 Blood Culture (Wb) - Anticubital Right Blood Culture - Preliminary No growth in 48 hours. Current Medications Acetaminophen (Acetaminophen 325 Mg Tablet) 650 mg PO Q6H PRN PRN PRN Reason: Pain Score 1-10/Temp > 100.7 F Al Hydroxide/Mg Hydroxide (Mag Hydrox/Al Hydrox/Simeth 30 Ml Udc) 30 ml PO Q6H PRN PRN PRN Reason: Gastric Burning Albuterol Sulfate (Albuterol Sulfate 8 Gm Inhaler (60 Puffs)) 2 puff INHALATION Q2H PRN PRN PRN Reason: SOB &/OR WHEEZING Albuterol/Ipratropium (Ipratropium/Albuterol Sulfate 3 Ml Ampul.Neb) 3 ml INHALATION Q4HWA.RT PRN PRN Reason: SOB &/OR WHEEZING Amlodipine Besylate (Amlodipine 10 Mg Tablet) 10 mg PO DAILY [facility] Last Admin: 05/09/20 08:34 Dose: 10 mg Documented by: Apixaban (Apixaban 5 Mg Tablet) 5 mg PO BID [facility] Last Admin: 05/09/20 21:33 Dose: 5 mg Documented by: Atorvastatin Calcium (Atorvastatin Calcium 80 Mg Tablet) 80 mg PO QHS [facility] Last Admin: 05/09/20 21:33 Dose: 80 mg Documented by: Carvedilol (Carvedilol 12.5 Mg Tablet) 12.5 mg PO BIDCM [facility] Last Admin: 05/09/20 18:40 Dose: 12.5 mg Documented by: Dexamethasone Sodium Phosphate (Dexamethasone 10 Mg/Ml Vial) 6 mg IV DAILY [facility] Last Admin: 05/09/20 08:33 Dose: 6 mg Documented by: Ceftriaxone Sodium (Rocephin) 1 gm in 50 mls @ 100 mls/hr IV Q24 [facility] Last Infusion: 05/09/20 14:25 Dose: Infused Documented by: Azithromycin 500 mg/ Dextrose 255 mls @ 250 mls/hr IV Q24 [facility] Last Infusion: 05/09/20 11:30 Dose: Infused Documented by: Remdesivir 100 mg/ Sodium (Chloride) 250 mls @ 125 mls/hr IV DAILY [facility]; Protocol Stop: 05/11/20 11:59 Last Infusion: 05/09/20 19:31 Dose: Infused Documented by: Isosorbide Mononitrate (Isosorbide Mononitrate 30 Mg Tablet) 30 mg PO BID [facility] Last Admin: 05/09/20 21:33 Dose: 30 mg Documented by: Loratadine (Loratadine 10 Mg Tablet) 10 mg PO QHS [facility] Last Admin: 05/09/20 21:33 Dose: 10 mg Documented by: Melatonin (Melatonin 3 Mg Tablet) 3 mg PO QHS [facility] Last Admin: 05/09/20 21:44 Dose: 3 mg Documented by: Montelukast Sodium (Montelukast 10 Mg Tablet) 10 mg PO DAILY [facility] Last Admin: 05/09/20 08:34 Dose: 10 mg Documented by: Nitroglycerin (Nitroglycerin (Inpatient Use) 0.4 Mg Tab.Subl) 0.4 mg SUBLINGUAL Q5M PRN PRN Reason: CHEST Ondansetron HCl (Ondansetron 4 Mg/2 Ml Vial) 4 mg IV Q8H PRN PRN PRN Reason: NAUSEA/VOMITING Oxycodone HCl (Oxycodone 5 Mg Tablet) 5 mg PO Q4H PRN PRN PRN Reason: Pain Score 6-10 Last Admin: 05/10/20 04:24 Dose: 5 mg Documented by: Ramipril (Ramipril 10 Mg Capsule) 10 mg PO BID [facility] Last Admin: 05/09/20 21:33 Dose: 10 mg Documented by: Sodium Chloride (0.9% Saline Lock 10 Ml Syringe) 10 - 40 ml IV UD PRN PRN Reason: SALINE FLUSH Last Admin: 05/09/20 21:42 Dose: 10 ml Documented by: Medical Necessity - Tobacco Use Smoking Status: Former smoker Tobacco Use: Cigarettes Assessment/Plan All Active Problems (Last Updated 04/14/20 @ 10:15 by Sheryl Hill) Pneumonia due to SARS-associated coronavirus (Acute) Bilateral pulmonary infiltrates on chest x-ray (Acute) Acute bronchospasm (Acute) Type 2 diabetes mellitus (Acute) Acute respiratory failure with hypoxia (Acute) Hypoxia (Acute) Hyponatremia (Acute) Respiratory failure (Acute) Femoral artery aneurysm, right (Acute) Presence of other cardiac implants and grafts (Resolved) RECOMMENDATIONS: 1. Continue to wean supplemental oxygen to maintain saturations at or above 90%. 2. Continue scheduled bronchodilators. 3. Continue Decadron 6 mg daily x10 days. 4. Continue antimicrobials per ID recommendations. 5. Continue remdesivir. 6. Potential discharge home with supplemental oxygen. IMPRESSIONS: 1. Acute hypoxic respiratory failure secondary to asthma/COPD exacerbation secondary to acute COVID-19 pneumonia Improving. The patient is able to maintain appropriate oxygen saturations on nasal cannula. The patient has already received convalescent plasma and remains on remdesivir, Decadron, Eliquis and antimicrobials. Plan to continue scheduled bronchodilator therapy. Continue to wean supplemental oxygen to maintain saturations at or above 90%. Given improvement, consideration can be given to potentially discharging the patient home without completing his full treatment course of remdesivir. I do anticipate a home-going supplemental oxygen need. 2. Obesity/extensive cardiac history/hypertension/history of knee replacement/advanced age Complicates care, management, recovery and prognosis. Okay to continue with baseline medications for now. This note was generated with [employer] dictation software. It may contain incorrect words, spelling, and punctuation that were not noted in checking the note before signing. Inpatient E&M: [id number] [facility] Hosp L2
[2020-05-10] MEDS: Montelukast 10 MG Tablet PO (09:55)
[2020-05-10] MEDS: Isosorbide Mononitrate 30 MG Tablet PO ×2 (09:55→20:33)
[2020-05-10] MEDS: dexAMETHasone 10 MG/ML Vial 6 MG IV (09:55)
[2020-05-10] MEDS: APIXABAN 5 MG TABLET PO ×2 (09:55→20:34)
[2020-05-10] MEDS: Carvedilol 12.5 MG Tablet PO ×2 (09:55→17:33)
[2020-05-10] MEDS: amLODIPine 10 MG Tablet PO (09:55)
[2020-05-10] MEDS: 0.9% Saline Lock 10 ML Syringe IV (09:55)
[2020-05-10] MEDS: Ramipril 10 MG Capsule PO ×2 (09:55→20:34)
[2020-05-10] MEDS: Ceftriaxone 1 GM/50 ML BAG IV (09:58)
--- NOTE | 2020-05-10 15:22 | NURSING ---
patient is on 4L of oxygen for this assessment
--- NOTE | 2020-05-10 16:51 | CHAPLAIN ---
Type of Pastoral Visit ___ Initial Visit ___ Follow-up Visit ___ On-call Visit ___ General Patient Visit ___ Spiritual Assessment ___ Family Conference ___ Bereavement ___ Rapid Response ___ Code Blue _x__ Other (describe below) Pastoral Care Referral From _x__ Patient ___ Family _x__ Nurse ___ Physician ___ Field Administrator ___ Brick Setter Operator ___ Other (describe below) Sacrament/Intervention _x__ Active listening ___ Anointing ___ Christianity ___ Bereavement ___ Communion ___ Harleen exploration ___ ___ Life review _x__ Prayer ___ Reconciliation ___ Sacrament of Sick ___ Supportive presence ___ Wedding ___ Other (describe below) Pastoral Comments called into room and talked with this patient over the phone; pt is alert and able to talk clearly; pt is grateful for support and reports good improvement in his health; pt welcomes prayer
--- NOTE | 2020-05-10 19:19 | PN.ID_ITS ---
Patient Problems: Active and Suspected Problems (Last Reviewed 03/08/20 @ 10:49 by Sole Tran) Pneumonia due to SARS-associated coronavirus (Acute) Bilateral pulmonary infiltrates on chest x-ray (Acute) Acute bronchospasm (Acute) Type 2 diabetes mellitus (Acute) Acute respiratory failure with hypoxia (Acute) Hypoxia (Acute) Hyponatremia (Acute) Respiratory failure (Acute) Femoral artery aneurysm, right (Acute) Subjective: Feeling better, no fever, no n/v/d. - Physical Exam Vitals/I&O's: Vital Signs Temp Pulse Resp BP Pulse Ox 98.5 F 90 20 H 139/77 H 92 05/10/20 17:30 05/10/20 17:30 05/10/20 17:30 05/10/20 17:30 05/10/20 17:30 Oxygen Flow Rate (L/min) 4 Oxygen Delivery Method Nasal Cannula Weight: 98.2 kg Body Mass Index (BMI) 33.8 Finger Stick Blood Glucose 153 Intake and Output for Last 24 Hours 05/09/20 05/09/20 05/10/20 00:59 23:59 23:59 Intake Total 955 / 955 Output Total 350 / 350 Balance 605 / 605 General: Alert, Cooperative, No apparent distress Lungs: Diminished Cardiovascular: Regular rate, Regular Rhythm Abdomen: Soft, Non Tender, Non-Distended Skin: No rashes Microbiology Past 72 Hours 05/07/20 07:22 Blood Culture (Wb) - Anticubital Left Blood Culture - Preliminary No growth in 48 hours. 05/07/20 07:10 Blood Culture (Wb) - Anticubital Right Blood Culture - Preliminary No growth in 48 hours. 05/07/20 20:20 Urine, Clean Catch Legionella Antigen - Final 05/07/20 20:20 Urine, Clean Catch Streptococcus pneumoniae Antigen (M - Final Laboratory Results 05/10/20 05:35: WBC 15.8 H, RBC 3.78 L, Hgb 11.3 L, Hct 35.2 L, MCV 93.1, MCH 29.9, MCHC 32.1, RDW Std Deviation 43.9, RDW Coeff of Kip 12.8, Plt Count 201, MPV 10.9 05/10/20 05:35: Sodium 139, Potassium 4.2, Chloride 107, Carbon Dioxide 26.0, Anion Gap 6, BUN 24 H, Creatinine 0.81, Estim Creat Clear Calc 72.54, Est GFR (MDRD) Af Amer 119, Est GFR (MDRD) Non-Af 98, BUN/Creatinine Ratio 29.6 H, Glucose 215 H, Calcium 8.0 L, Total Bilirubin 0.40, AST 33, ALT 58, Alkaline Phosphatase 97, Total Protein 6.0 L, Albumin 2.3 L, Globulin 3.7, Albumin/Globulin Ratio 0.6 L Current Medications Acetaminophen (Acetaminophen 325 Mg Tablet) 650 mg PO Q6H PRN PRN PRN Reason: Pain Score 1-10/Temp > 100.7 F Al Hydroxide/Mg Hydroxide (Mag Hydrox/Al Hydrox/Simeth 30 Ml Udc) 30 ml PO Q6H PRN PRN PRN Reason: Gastric Burning Albuterol Sulfate (Albuterol Sulfate 8 Gm Inhaler (60 Puffs)) 2 puff INHALATION Q2H PRN PRN PRN Reason: SOB &/OR WHEEZING Albuterol/Ipratropium (Ipratropium/Albuterol Sulfate 3 Ml Ampul.Neb) 3 ml INHALATION Q4HWA.RT PRN PRN Reason: SOB &/OR WHEEZING Amlodipine Besylate (Amlodipine 10 Mg Tablet) 10 mg PO DAILY [facility] Last Admin: 05/10/20 09:55 Dose: 10 mg Documented by: Apixaban (Apixaban 5 Mg Tablet) 5 mg PO BID [facility] Last Admin: 05/10/20 09:55 Dose: 5 mg Documented by: Atorvastatin Calcium (Atorvastatin Calcium 80 Mg Tablet) 80 mg PO QHS [facility] Last Admin: 05/09/20 21:33 Dose: 80 mg Documented by: Carvedilol ([facility] 12.5 Mg [facility]t) [facility] Last Admin: 05/10/20 17:33 Dose: 12.5 mg Documented by: Dexamethasone Sodium Phosphate (Dexamethasone 10 Mg/Ml Vial) 6 mg IV DAILY [facility] Last Admin: 05/10/20 09:55 Dose: 6 mg Documented by: Remdesivir 100 mg/ Sodium (Chloride) 250 mls @ 125 mls/hr IV DAILY [facility]; Protocol Stop: 05/11/20 11:59 Last Infusion: 05/10/20 16:44 Dose: Infused Documented by: Isosorbide Mononitrate (Isosorbide Mononitrate 30 Mg Tablet) 30 mg PO BID [facility] Last Admin: 05/10/20 09:55 Dose: 30 mg Documented by: Loratadine (Loratadine 10 Mg Tablet) 10 mg PO QHS [facility] Last Admin: 05/09/20 21:33 Dose: 10 mg Documented by: Melatonin (Melatonin 3 Mg Tablet) 3 mg PO QHS [facility] Last Admin: 05/09/20 21:44 Dose: 3 mg Documented by: Montelukast Sodium (Montelukast 10 Mg Tablet) 10 mg PO DAILY [facility] Last Admin: 05/10/20 09:55 Dose: 10 mg Documented by: Nitroglycerin (Nitroglycerin (Inpatient Use) 0.4 Mg Tab.Subl) 0.4 mg SUBLINGUAL Q5M PRN PRN Reason: CHEST Ondansetron HCl (Ondansetron 4 Mg/2 Ml Vial) 4 mg IV Q8H PRN PRN PRN Reason: NAUSEA/VOMITING Oxycodone HCl (Oxycodone 5 Mg Tablet) 5 mg PO Q4H PRN PRN PRN Reason: Pain Score 6-10 Last Admin: 05/10/20 04:24 Dose: 5 mg Documented by: Ramipril (Ramipril 10 Mg Capsule) 10 mg PO BID [facility] Last Admin: 05/10/20 09:55 Dose: 10 mg Documented by: Senna (Senna Tablet) 1 tablet PO BID [facility] Sodium Chloride (0.9% Saline Lock 10 Ml Syringe) 10 - 40 ml IV UD PRN PRN Reason: SALINE FLUSH Last Admin: 05/10/20 09:55 Dose: 10 ml Documented by: Medical Necessity - Tobacco Use Smoking Status: Former smoker Tobacco Use: Cigarettes Route of nutrition/ use of supplements: [] Nutritional Intake: [] IV Site: [] Thomas Catheter: [] - Assessment/Plan Antibiotics: [] Assessment/Plan: [] Active and Suspected Problems (Last Reviewed 03/08/20 @ 10:49 by Sole Tran) Pneumonia due to SARS-associated coronavirus (Acute) Bilateral pulmonary infiltrates on chest x-ray (Acute) Acute bronchospasm (Acute) Type 2 diabetes mellitus (Acute) Acute respiratory failure with hypoxia (Acute) Hypoxia (Acute) Hyponatremia (Acute) Respiratory failure (Acute) Femoral artery aneurysm, right (Acute) covid with hypoxia - on dex, eliquis. Given plasma and remdesivir. Feeling better. On 4L. Will stop abx. Will follow
[2020-05-10] MEDS: Atorvastatin Calcium 80 MG Tablet PO (20:33)
[2020-05-10] MEDS: Loratadine 10 MG Tablet PO (20:33)
[2020-05-10] MEDS: MELATONIN 3 MG TABLET PO (20:34)
[2020-05-11] VITALS (8 sets, daily range): BP systolic 105–157; BP diastolic 69–90; PULSE 78–85; RESP 20–32; TEMP 35.3–36.6; O2SAT 85–94
[2020-05-11 06:58] LABS: Hematocrit 35.9 % (40-54); Hemoglobin 11.6 g/dL (13.0-16.5); Mean Corp Hgb Conc 32.3 g/dL (32-36); Mean Corpuscular Hgb 29.7 pg (27.0-32.0); Mean Corpuscular Volume 91.8 fL (80-94); Mean Platelet Vol. 10.7 fl (6.2-12.0); Platelet Count 203 K/mm3 (150-450); RBC Distribution Width CV 12.8 % (11.6-14.6); RBC Distribution Width SD 43.4 fl (35.1-43.9); Red Blood Count 3.91 M/mm3 (4.6-6.2); White Blood Count 17.2 K/mm3 (4.4-11.0)
--- NOTE | 2020-05-11 07:20 | DS.PCM_ITS ---
Discharge Date and Diagnosis - Problem List Patient Problems: Active and Suspected Problems (Last Reviewed 03/08/20 @ 10:49 by Sole Tran) Pneumonia due to SARS-associated coronavirus (Acute) Bilateral pulmonary infiltrates on chest x-ray (Acute) Acute bronchospasm (Acute) Type 2 diabetes mellitus (Acute) Acute respiratory failure with hypoxia (Acute) Hypoxia (Acute) Hyponatremia (Acute) Respiratory failure (Acute) Femoral artery aneurysm, right (Acute) Date of Admission: 05/07/20 Date of Discharge: 05/11/20 - Primary Discharge Diagnosis Acute Problems: Active Problems (Last Reviewed 03/08/20 @ 10:49 by Sole Tran) Pneumonia due to SARS-associated coronavirus (Acute) Bilateral pulmonary infiltrates on chest x-ray (Acute) Acute bronchospasm (Acute) Type 2 diabetes mellitus (Acute) Acute respiratory failure with hypoxia (Acute) Hypoxia (Acute) Hyponatremia (Acute) Respiratory failure (Acute) Femoral artery aneurysm, right (Acute) - Secondary Discharge Diagnosis Chronic Problems: Chronic Problems (Last Reviewed 03/08/20 @ 10:49 by Sole Tran) COPD exacerbation (Chronic) Atrial flutter (Chronic) Erectile dysfunction (Chronic) Hyperlipidemia, unspecified (Chronic) Essential (primary) hypertension (Chronic) Presence of biventricular implantable cardioverter-defibrillator (ICD) (Chronic 04/22/12) Presence of stent in coronary artery (Chronic) x7 CX, PL, PDA of RCA Atherosclerotic heart disease of [place] coronary artery without angina pectoris (Chronic) [place] side to side to the diagonal and end to side of anterior descending, SVG to PL of RCA 12 Aortocoronary bypass status (Chronic ~05/17/12) CABG x3-[place] ROS[place]IO side to side to the diagonal and end to side of anterior descending, SVG to posterolateral of RCA 12 Carotid artery disease (Chronic) Shortness of breath (Chronic) Ischemic cardiomyopathy (Chronic) Peripheral vascular disease (Chronic) Hospital Course and Treatment Imaging Results: Clinical Impression(s) from Imaging Studies Chest X-Ray 05/07/20 07:05 IMPRESSION: Findings suggestive of a wedge-shaped infiltrate in the lateral aspect of the right mid lung. Electronically Signed: Ramone Mcmahon, at 8:40 EDT , Service support , Chest X-Ray 05/10/20 05:55 IMPRESSION: Progressive right upper lobe and lingular infiltrates. Electronically Signed: Ramone Mcmahon, at 10:07 EST , Service support , Operations: None, total knee replacement Summary of Care Provided: 74-year-old male admitted with progressive shortness of breath diagnosed with acute hypoxic respiratory failure secondary to acute COVID-19 pneumonia 1. Acute hypoxic respiratory failure Secondary to acute COVID-19 pneumonia. Patient has been managed with aerosol treatments and steroid in addition to supplemental oxygen. Patient did receive convalescent plasma on 05/07/2020 and remdesivir ?Do plan to ambulate patient and if oxygen requirement stays above 92 patient may be discharged home with supplemental oxygen -05/11/2020 Patient seen appears to be close to his baseline however still requiring high flow oxygen. She was assessed for home oxygen prior to discha rge. He did qualify. Patient will need portability since he is active both at home as well as in the community. 2. Coronary artery disease ?Status post CABG 3. Ischemic cardiomyopathy -status post AICD placement 4. 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 Paroxysmal atrial flutter ?Rate controlled on systemic anticoagulation with Eliquis 6. Peripheral arterial disease ?Patient is on systemic anticoagulation 7. Hypertension - Blood pressure controlled, home medications continued with dose adjustment as needed 8. COPD ?aerosol treatments as needed 9. Left total knee arthroplasty Status post CT guided Robotic Assisted left TKA on 03/30/20 10. DVT prophylaxis Apixaban Patient Problems: Active and Suspected Problems (Last Reviewed 03/08/20 @ 10:49 by Sole Tran) Pneumonia due to SARS-associated coronavirus (Acute) Bilateral pulmonary infiltrates on chest x-ray (Acute) Acute bronchospasm (Acute) Type 2 diabetes mellitus (Acute) Acute respiratory failure with hypoxia (Acute) Hypoxia (Acute) Hyponatremia (Acute) Respiratory failure (Acute) Femoral artery aneurysm, right (Acute) Objective: GENERAL: cooperative HEENT: Atraumatic; EYES; Anicteric, Normal Conjunctiva NECK; supple, normal thyroid, RESPIRATORY: Diminished to auscultation CARDIOVASCULAR: Regular S1 S2, GI: soft, normoactive bowel sounds, : No Renal angle tenderness; EXTREMITIES: No edema, no clubbing, MUSCULOSKELETAL: no muscle waisting NEURO: Awake; no lateralizing signs. SKIN: No Rash PSYCH; Flat affect - Physical Exam Vitals/I&O's: Vital Signs Temp Pulse Resp BP Pulse Ox 97.9 F 78 20 H 126/69 H 94 05/11/20 03:27 05/11/20 03:27 05/11/20 03:27 05/11/20 03:27 05/11/20 03:27 Oxygen Flow Rate (L/min) 5 Oxygen Delivery Method Nasal Cannula Weight: 92.2 kg Body Mass Index (BMI) 33.8 Finger Stick Blood Glucose 153 Intake and Output for Last 24 Hours 05/09/20 05/10/20 05/11/20 23:59 23:59 23:59 Intake Total 955 / 955 Output Total 1000 / 1000 400 / 400 Balance -45 / -45 -400 / -400 Microbiology Past 72 Hours 05/07/20 07:22 Blood Culture (Wb) - Anticubital Left Blood Culture - Preliminary No growth in 48 hours. 05/07/20 07:10 Blood Culture (Wb) - Anticubital Right Blood Culture - Preliminary No growth in 48 hours. Laboratory Results 05/10/20 05:35: Sodium 139, Potassium 4.2, Chloride 107, Carbon Dioxide 26.0, Anion Gap 6, BUN 24 H, Creatinine 0.81, Estim Creat Clear Calc 72.54, Est GFR (MDRD) Af Amer 119, Est GFR (MDRD) Non-Af 98, BUN/Creatinine Ratio 29.6 H, Glucose 215 H, Calcium 8.0 L, Total Bilirubin 0.40, AST 33, ALT 58, Alkaline Phosphatase 97, Total Protein 6.0 L, Albumin 2.3 L, Globulin 3.7, Albumin/Globulin Ratio 0.6 L 05/11/20 05:40: WBC 17.2 H, RBC 3.91 L, Hgb 11.6 L, Hct 35.9 L, MCV 91.8, MCH 29.7, MCHC 32.3, RDW Std Deviation 43.4, RDW Coeff of Kip 12.8, Plt Count 203, MPV 10.7 05/11/20 05:40: Sodium Pending, Potassium Pending, Chloride Pending, Carbon Dioxide Pending, Anion Gap Pending, BUN Pending, Creatinine Pending, Est GFR (MDRD) Af Amer Pending, Est GFR (MDRD) Non-Af Pending, BUN/Creatinine Ratio Pending, Glucose Pending, Calcium Pending, Total Bilirubin Pending, AST Pending, ALT Pending, Alkaline Phosphatase Pending, Total Protein Pending, Albumin Pending Current Medications Acetaminophen (Acetaminophen 325 Mg Tablet) 650 mg PO Q6H PRN PRN PRN Reason: Pain Score 1-10/Temp > 100.7 F Al Hydroxide/Mg Hydroxide (Mag Hydrox/Al Hydrox/Simeth 30 Ml Udc) 30 ml PO Q6H PRN PRN PRN Reason: Gastric Burning Albuterol Sulfate (Albuterol Sulfate 8 Gm Inhaler (60 Puffs)) 2 puff INHALATION Q2H PRN PRN PRN Reason: SOB &/OR WHEEZING Albuterol/Ipratropium (Ipratropium/Albuterol Sulfate 3 Ml Ampul.Neb) 3 ml INHALATION Q4HWA.RT PRN PRN Reason: SOB &/OR WHEEZING Amlodipine Besylate (Amlodipine 10 Mg Tablet) 10 mg PO DAILY [facility] Last Admin: 05/10/20 09:55 Dose: 10 mg Documented by: Apixaban (Apixaban 5 Mg Tablet) 5 mg PO BID [facility] Last Admin: 05/10/20 20:34 Dose: 5 mg Documented by: Atorvastatin Calcium (Atorvastatin Calcium 80 Mg Tablet) 80 mg PO QHS [facility] Last Admin: 05/10/20 20:33 Dose: 80 mg Documented by: Carvedilol (Carvedilol 12.5 Mg Tablet) [facility] Last Admin: 05/10/20 17:33 Dose: 12.5 mg Documented by: Dexamethasone Sodium Phosphate (Dexamethasone 10 Mg/Ml Vial) 6 mg IV DAILY [facility] Last Admin: 05/10/20 09:55 Dose: 6 mg Documented by: Remdesivir 100 mg/ Sodium (Chloride) 250 mls @ 125 mls/hr IV DAILY [facility]; Protocol Stop: 05/11/20 11:59 Last Infusion: 05/10/20 16:44 Dose: Infused Documented by: Isosorbide Mononitrate (Isosorbide Mononitrate 30 Mg Tablet) 30 mg PO BID [facility] Last Admin: 05/10/20 20:33 Dose: 30 mg Documented by: Loratadine (Loratadine 10 Mg Tablet) 10 mg PO QHS [facility] Last Admin: 05/10/20 20:33 Dose: 10 mg Documented by: Melatonin (Melatonin 3 Mg Tablet) 3 mg PO QHS [facility] Last Admin: 05/10/20 20:34 Dose: 3 mg Documented by: Montelukast Sodium (Montelukast 10 Mg Tablet) 10 mg PO DAILY [facility] Last Admin: 05/10/20 09:55 Dose: 10 mg Documented by: Nitroglycerin (Nitroglycerin (Inpatient Use) 0.4 Mg Tab.Subl) 0.4 mg SUBLINGUAL Q5M PRN PRN Reason: CHEST Ondansetron HCl (Ondansetron 4 Mg/2 Ml Vial) 4 mg IV Q8H PRN PRN PRN Reason: NAUSEA/VOMITING Oxycodone HCl (Oxycodone 5 Mg Tablet) 5 mg PO Q4H PRN PRN PRN Reason: Pain Score 6-10 Last Admin: 05/10/20 22:06 Dose: 5 mg Documented by: Ramipril (Ramipril 10 Mg Capsule) 10 mg PO BID [facility] Last Admin: 05/10/20 20:34 Dose: 10 mg Documented by: Senna (Senna Tablet) 1 tablet PO BID [facility] Last Admin: 05/10/20 20:34 Dose: Not Given Documented by: Sodium Chloride (0.9% Saline Lock 10 Ml Syringe) 10 - 40 ml IV UD PRN PRN Reason: SALINE FLUSH Last Admin: 05/10/20 09:55 Dose: 10 ml Documented by: Discharge Diet: No Restrictions Discharge Activity: Return to Normal Activity Home Medications: Medications to take at Discharge Albuterol Inhaler [Ventolin Hfa] 1 - 2 puff INHALATION Q4H PRN PRN 12/25/13 Carvedilol [Coreg (Beta Sterling)] 6.25 mg PO BID 12/25/13 Nitroglycerin (INPATIENT USE) [Nitrostat] 0.4 mg SUBLINGUAL Q5M PRN 12/25/13 Ramipril [Altace] 10 mg PO BID 12/25/13 fluticasone propionate 50 mcg/actuation nasal spray,suspension 50 mcg INTRANASAL QDAY PRN 06/25/17 atorvastatin 80 mg tablet 80 mg PO QHS tab 08/14/17 ipratropium 0.5 mg-albuterol 3 mg (2.5 mg base)/3 mL nebulization soln 3 ml INHALATION Q4HWA.RT PRN box 09/03/18 isosorbide mononitrate 30 mg tablet,extended release 24 hr 30 mg PO BID 10/28/19 montelukast 10 mg tablet 10 mg PO DAILY 02/17/20 budesonide-formoterol HFA 160 mcg-4.5 mcg/actuation aerosol inhaler 2 puff INHALATION Q12H #3 device 03/08/20 Apixaban [Eliquis] 5 mg PO BID tab 03/31/20 oxycodone 5 mg capsule 5 - 10 mg PO Q6H PRN #56 cap 05/03/20 Amlodipine Besylate [Norvasc] 10 mg PO DAILY 05/07/20 Cetirizine HCl/Pseudoephedrine [Zyrtec-D Tablet] 1 ea PO QHS 05/07/20 Acetaminophen [Tylenol Tablet] 650 mg PO Q6H PRN PRN tablet 05/11/20 Dexamethasone [Decadron] 6 mg PO DAILY #6 tab 05/11/20 Following Prescriptions Were Given to Patient: Dexamethasone [Decadron] 6 mg PO DAILY #6 tab Transmission Status: Pending to [facility] Primary Care Physician: Fito Velez MD [Primary Care Provider] - Please follow up with your Primary Care Physician in: in 1-2 weeks Disposition: Home Minutes spent on discharge:: 40 Medical Necessity - Tobacco Use Smoking Status: Former smoker Tobacco Use: Cigarettes Meaningful Use Info Meaningful Use Diagnoses (Choose all that apply): None applicable Inpatient E&M: 30026 Disch Hosp
[2020-05-11 07:34] LABS: ALB/GLOB Ratio 0.6 RATIO (0.9-2.4); AST(SGOT) 27 U/L (15-37); Alanine Aminotransfer ALT/SGPT 62 U/L (16-61); Albumin, Serum 2.3 g/dL (3.2-5.0); Alkaline Phosphatase 98 U/L (45-117); Anion Gap 6 (5-15); BUN 27 mg/dL (7-18); Calcium,Total 8.3 mg/dL (8.5-10.1); Chloride 104 mmol/L (98-107); Creatinine, Serum 0.84 mg/dL (0.70-1.30); EST Glomerular Filtration Rate 94 mL/min (>60); Est Glom Filt Rate - Afr Amer 114 mL/min (>60); Estimated Creatinine Clearance 69.95 ml/min; Glucose 222 mg/dL (74-106); Potassium 4.3 mmol/L (3.5-5.1); Protein, Total 6.3 g/dL (6.4-8.2); Sodium Level 138 mmol/L (136-145)
--- NOTE | 2020-05-11 07:54 | PCM.PN.HOSP ---
Patient Problems: Active and Suspected Problems (Last Reviewed 03/08/20 @ 10:49 by Sole Tran) Pneumonia due to SARS-associated coronavirus (Acute) Bilateral pulmonary infiltrates on chest x-ray (Acute) Acute bronchospasm (Acute) Type 2 diabetes mellitus (Acute) Acute respiratory failure with hypoxia (Acute) Hypoxia (Acute) Hyponatremia (Acute) Respiratory failure (Acute) Femoral artery aneurysm, right (Acute) Reason for Visit: COVID-19 pneumonia Subjective: Patient seen appears to be close to his baseline however still requiring high flow oxygen. Plan for patient to be assessed for home oxygen needs prior to discharge Objective: GENERAL: cooperative HEENT: Atraumatic; EYES; Anicteric, Normal Conjunctiva NECK; supple, normal thyroid, RESPIRATORY: Diminished to auscultation CARDIOVASCULAR: Regular S1 S2, GI: soft, normoactive bowel sounds, : No Renal angle tenderness; EXTREMITIES: No edema, no clubbing, MUSCULOSKELETAL: no muscle waisting NEURO: Awake; no lateralizing signs. SKIN: No Rash PSYCH; Flat affect Vitals/I&O's: Vital Signs Temp Pulse Resp BP Pulse Ox 97.9 F 78 20 H 126/69 H 94 05/11/20 03:27 05/11/20 03:27 05/11/20 03:27 05/11/20 03:27 05/11/20 03:27 Oxygen Flow Rate (L/min) 5 Oxygen Delivery Method Nasal Cannula Weight: 92.2 kg Body Mass Index (BMI) 33.8 Finger Stick Blood Glucose 153 Intake and Output for Last 24 Hours 05/09/20 05/10/20 05/11/20 23:59 23:59 23:59 Intake Total 955 / 955 Output Total 1000 / 1000 400 / 400 Balance -45 / -45 -400 / -400 Microbiology Past 72 Hours 05/07/20 07:22 Blood Culture (Wb) - Anticubital Left Blood Culture - Preliminary No growth in 48 hours. 05/07/20 07:10 Blood Culture (Wb) - Anticubital Right Blood Culture - Preliminary No growth in 48 hours. Laboratory Results 05/11/20 05:40: WBC 17.2 H, RBC 3.91 L, Hgb 11.6 L, Hct 35.9 L, MCV 91.8, MCH 29.7, MCHC 32.3, RDW Std Deviation 43.4, RDW Coeff of Kip 12.8, Plt Count 203, MPV 10.7 05/11/20 05:40: Sodium 138, Potassium 4.3, Chloride 104, Carbon Dioxide 28.0, Anion Gap 6, BUN 27 H, Creatinine 0.84, Estim Creat Clear Calc 69.95, Est GFR (MDRD) Af Amer 114, Est GFR (MDRD) Non-Af 94, BUN/Creatinine Ratio 32.0 H, Glucose 222 H, Calcium 8.3 L, Total Bilirubin 0.50, AST 27, ALT 62 H, Alkaline Phosphatase 98, Total Protein 6.3 L, Albumin 2.3 L, Globulin 4.0, Albumin/Globulin Ratio 0.6 L Current Medications Acetaminophen (Acetaminophen 325 Mg Tablet) 650 mg PO Q6H PRN PRN PRN Reason: Pain Score 1-10/Temp > 100.7 F Al Hydroxide/Mg Hydroxide (Mag Hydrox/Al Hydrox/Simeth 30 Ml Udc) 30 ml PO Q6H PRN PRN PRN Reason: Gastric Burning Albuterol Sulfate (Albuterol Sulfate 8 Gm Inhaler (60 Puffs)) 2 puff INHALATION Q2H PRN PRN PRN Reason: SOB &/OR WHEEZING Albuterol/Ipratropium (Ipratropium/Albuterol Sulfate 3 Ml Ampul.Neb) 3 ml INHALATION Q4HWA.RT PRN PRN Reason: SOB &/OR WHEEZING Amlodipine Besylate (Amlodipine 10 Mg Tablet) 10 mg PO DAILY [facility] Last Admin: 05/10/20 09:55 Dose: 10 mg Documented by: Apixaban (Apixaban 5 Mg Tablet) 5 mg PO BID [facility] Last Admin: 05/10/20 20:34 Dose: 5 mg Documented by: Atorvastatin Calcium (Atorvastatin Calcium 80 Mg Tablet) 80 mg PO QHS [facility] Last Admin: 05/10/20 20:33 Dose: 80 mg Documented by: Carvedilol (Carvedilol 12.5 Mg Tablet) 12.5 mg PO BIDCM [facility] Last Admin: 05/10/20 17:33 Dose: 12.5 mg Documented by: Dexamethasone Sodium Phosphate (Dexamethasone 10 Mg/Ml Vial) 6 mg IV DAILY [facility] Last Admin: 05/10/20 09:55 Dose: 6 mg Documented by: Remdesivir 100 mg/ Sodium (Chloride) 250 mls @ 125 mls/hr IV DAILY [facility]; Protocol Stop: 05/11/20 11:59 Last Infusion: 05/10/20 16:44 Dose: Infused Documented by: Isosorbide Mononitrate (Isosorbide Mononitrate 30 Mg Tablet) 30 mg PO BID [facility] Last Admin: 05/10/20 20:33 Dose: 30 mg Documented by: Loratadine (Loratadine 10 Mg Tablet) 10 mg PO QHS [facility] Last Admin: 05/10/20 20:33 Dose: 10 mg Documented by: Melatonin (Melatonin 3 Mg Tablet) 3 mg PO QHS [facility] Last Admin: 05/10/20 20:34 Dose: 3 mg Documented by: Montelukast Sodium (Montelukast 10 Mg Tablet) 10 mg PO DAILY [facility] Last Admin: 05/10/20 09:55 Dose: 10 mg Documented by: Nitroglycerin (Nitroglycerin (Inpatient Use) 0.4 Mg Tab.Subl) 0.4 mg SUBLINGUAL Q5M PRN PRN Reason: CHEST Ondansetron HCl (Ondansetron 4 Mg/2 Ml Vial) 4 mg IV Q8H PRN PRN PRN Reason: NAUSEA/VOMITING Oxycodone HCl (Oxycodone 5 Mg Tablet) 5 mg PO Q4H PRN PRN PRN Reason: Pain Score 6-10 Last Admin: 05/10/20 22:06 Dose: 5 mg Documented by: Ramipril (Ramipril 10 Mg Capsule) 10 mg PO BID [facility] Last Admin: 05/10/20 20:34 Dose: 10 mg Documented by: Senna (Senna Tablet) 1 tablet PO BID [facility] Last Admin: 05/10/20 20:34 Dose: Not Given Documented by: Sodium Chloride (0.9% Saline Lock 10 Ml Syringe) 10 - 40 ml IV UD PRN PRN Reason: SALINE FLUSH Last Admin: 05/10/20 09:55 Dose: 10 ml Documented by: Medical Necessity - Tobacco Use Smoking Status: Former smoker Tobacco Use: Cigarettes Assessment/Plan All Active Problems (Last Updated 04/14/20 @ 10:15 by Sheryl Hill) Pneumonia due to SARS-associated coronavirus (Acute) Bilateral pulmonary infiltrates on chest x-ray (Acute) Acute bronchospasm (Acute) Type 2 diabetes mellitus (Acute) Acute respiratory failure with hypoxia (Acute) Hypoxia (Acute) Hyponatremia (Acute) Respiratory failure (Acute) Femoral artery aneurysm, right (Acute) Presence of other cardiac implants and grafts (Resolved) 74-year-old male admitted with progressive shortness of breath diagnosed with acute hypoxic respiratory failure secondary to acute COVID-19 pneumonia 1. Acute hypoxic respiratory failure Secondary to acute COVID-19 pneumonia. Patient has been managed with aerosol treatments and steroid in addition to supplemental oxygen. Patient did receive convalescent plasma on 05/07/2020 and remdesivir ?Do plan to ambulate patient and if oxygen requirement stays above 92 patient may be discharged home with supplemental oxygen -05/11/2020 Patient seen appears to be close to his baseline however still requiring high flow oxygen. Plan for patient to be assessed for home oxygen needs prior to discharge 2. Coronary artery disease ?Status post CABG 3. Ischemic cardiomyopathy -status post AICD placement 4. 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 Paroxysmal atrial flutter ?Rate controlled on systemic anticoagulation with Eliquis 6. Peripheral arterial disease ?Patient is on systemic anticoagulation 7. Hypertension - Blood pressure controlled, home medications continued with dose adjustment as needed 8. COPD ?aerosol treatments as needed 9. Left total knee arthroplasty Status post CT guided Robotic Assisted left TKA on 03/30/20 10. DVT prophylaxis Apixaban Inpatient E&M: 84428 [facility] Hosp L2
--- NOTE | 2020-05-11 08:37 | PN_ITS ---
Patient Problems: Active and Suspected Problems (Last Reviewed 03/08/20 @ 10:49 by Sole Tran) Pneumonia due to SARS-associated coronavirus (Acute) Bilateral pulmonary infiltrates on chest x-ray (Acute) Acute bronchospasm (Acute) Type 2 diabetes mellitus (Acute) Acute respiratory failure with hypoxia (Acute) Hypoxia (Acute) Hyponatremia (Acute) Respiratory failure (Acute) Femoral artery aneurysm, right (Acute) Subjective: The patient was seen and examined at the bedside this morning. Events from the last 24 hours have been reviewed. The patient is currently afebrile, hemodynamically stable and maintaining appropriate oxygen saturations on 5 L/min via nasal cannula. The patient reports that he feels well this morning. The patient has already received convalescent plasma and remains on remdesivir, Decadron and Eliquis. Objective: The patient's most recent lab work, culture data and imaging studies have all been personally reviewed. - Physical Exam Vitals/I&O's: Vital Signs Temp Pulse Resp BP Pulse Ox 97.9 F 78 20 H 126/69 H 94 05/11/20 03:27 05/11/20 03:27 05/11/20 03:27 05/11/20 03:27 05/11/20 03:27 Oxygen Flow Rate (L/min) 5 Oxygen Delivery Method Nasal Cannula Weight: 203 lb 4.259 oz Body Mass Index (BMI) 33.8 Finger Stick Blood Glucose 153 Intake and Output for Last 24 Hours 05/09/20 05/10/20 05/11/20 23:59 23:59 23:59 Intake Total 955 / 955 Output Total 1000 / 1000 400 / 400 Balance -45 / -45 -400 / -400 General: Alert, Cooperative, No apparent distress HEENT: Atraumatic, Normocephalic Oral: Moist Mucosa, No Gingival or Mucosal Lesions/ Ulcerations Neck: Supple, No Nodes, Trachea Midline Lungs: No rhonchi, No wheeze, No rales, Diminished Cardiovascular: Regular rate, Regular Rhythm Abdomen: Bowel Sounds Present, Soft, Non Tender, Obese Extremities: No clubbing, No cyanosis, No edema Skin: No breakdown Musculoskeletal: No Tenderness to Palpation of Joints or Extremities, No Muscle Wasting Lymphatic: No Cervical, Supraclavicular, or Inguinal Adenopathy Neurological: Cranial nerves II-XII grossly intact, Neuro grossly intact Psych/Mental Status: Alert and oriented to time, place, person, mood and affect Labs (Last 48 Hours) 05/10/20 05/10/20 05/11/20 05:35 05:35 05:40 WBC 15.8 H 17.2 H RBC 3.78 L 3.91 L Hgb 11.3 L 11.6 L Hct 35.2 L 35.9 L MCV 93.1 91.8 MCH 29.9 29.7 MCHC 32.1 32.3 RDW Std Deviation 43.9 43.4 RDW Coeff of Kip 12.8 12.8 Plt Count 201 203 MPV 10.9 10.7 Sodium 139 Potassium 4.2 Chloride 107 Carbon Dioxide 26.0 Anion Gap 6 BUN 24 H Creatinine 0.81 Estim Creat Clear Calc 72.54 Est GFR (MDRD) Af Amer 119 Est GFR (MDRD) Non-Af 98 BUN/Creatinine Ratio 29.6 H Glucose 215 H Calcium 8.0 L Total Bilirubin 0.40 AST 33 ALT 58 Alkaline Phosphatase 97 Total Protein 6.0 L Albumin 2.3 L Globulin 3.7 Albumin/Globulin Ratio 0.6 L 05/11/20 05:40 WBC RBC Hgb Hct MCV MCH MCHC RDW Std Deviation RDW Coeff of Kip Plt Count MPV Sodium 138 Potassium 4.3 Chloride 104 Carbon Dioxide 28.0 Anion Gap 6 BUN 27 H Creatinine 0.84 Estim Creat Clear Calc 69.95 Est GFR (MDRD) Af Amer 114 Est GFR (MDRD) Non-Af 94 BUN/Creatinine Ratio 32.0 H Glucose 222 H Calcium 8.3 L Total Bilirubin 0.50 AST 27 ALT 62 H Alkaline Phosphatase 98 Total Protein 6.3 L Albumin 2.3 L Globulin 4.0 Albumin/Globulin Ratio 0.6 L Microbiology 05/07/20 07:22 Blood Culture (Wb) - Anticubital Left Blood Culture - Preliminary No growth in 48 hours. 05/07/20 07:10 Blood Culture (Wb) - Anticubital Right Blood Culture - Preliminary No growth in 48 hours. Clinical Impression(s) from Imaging Studies Chest X-Ray 05/07/20 07:05 IMPRESSION: Findings suggestive of a wedge-shaped infiltrate in the lateral aspect of the right mid lung. Electronically Signed: Ramone Mcmahon, at 8:40 EDT , Service support , Chest X-Ray 05/10/20 05:55 IMPRESSION: Progressive right upper lobe and lingular infiltrates. Electronically Signed: Ramone Mcmahon, at 10:07 EST , Service support , Current Medications Acetaminophen (Acetaminophen 325 Mg Tablet) 650 mg PO Q6H PRN PRN PRN Reason: Pain Score 1-10/Temp > 100.7 F Al Hydroxide/Mg Hydroxide (Mag Hydrox/Al Hydrox/Simeth 30 Ml Udc) 30 ml PO Q6H PRN PRN PRN Reason: Gastric Burning Albuterol Sulfate (Albuterol Sulfate 8 Gm Inhaler (60 Puffs)) 2 puff INHALATION Q2H PRN PRN PRN Reason: SOB &/OR WHEEZING Albuterol/Ipratropium (Ipratropium/Albuterol Sulfate 3 Ml Ampul.Neb) 3 ml INHALATION Q4HWA.RT PRN PRN Reason: SOB &/OR WHEEZING Amlodipine Besylate (Amlodipine 10 Mg Tablet) 10 mg PO DAILY [facility] Last Admin: 05/10/20 09:55 Dose: 10 mg Documented by: Apixaban (Apixaban 5 Mg Tablet) 5 mg PO BID [facility] Last Admin: 05/10/20 20:34 Dose: 5 mg Documented by: Atorvastatin Calcium (Atorvastatin Calcium 80 Mg Tablet) 80 mg PO QHS [facility] Last Admin: 05/10/20 20:33 Dose: 80 mg Documented by: Carvedilol ([facility] 12.5 Mg Tablet[facility] Last Admin: 05/10/20 17:33 Dose: 12.5 mg Documented by: Dexamethasone Sodium Phosphate (Dexamethasone 10 Mg/Ml Vial) 6 mg IV DAILY [facility] Last Admin: 05/10/20 09:55 Dose: 6 mg Documented by: Remdesivir 100 mg/ Sodium (Chloride) 250 mls @ 125 mls/hr IV DAILY [facility]; Protocol Stop: 05/11/20 11:59 Last Infusion: 05/10/20 16:44 Dose: Infused Documented by: Isosorbide Mononitrate (Isosorbide Mononitrate 30 Mg Tablet) 30 mg PO BID [facility] Last Admin: 05/10/20 20:33 Dose: 30 mg Documented by: Loratadine (Loratadine 10 Mg Tablet) 10 mg PO QHS [facility] Last Admin: 05/10/20 20:33 Dose: 10 mg Documented by: Melatonin (Melatonin 3 Mg Tablet) 3 mg PO QHS [facility] Last Admin: 05/10/20 20:34 Dose: 3 mg Documented by: Montelukast Sodium (Montelukast 10 Mg Tablet) 10 mg PO DAILY [facility] Last Admin: 05/10/20 09:55 Dose: 10 mg Documented by: Nitroglycerin (Nitroglycerin (Inpatient Use) 0.4 Mg Tab.Subl) 0.4 mg SUBLINGUAL Q5M PRN PRN Reason: CHEST Ondansetron HCl (Ondansetron 4 Mg/2 Ml Vial) 4 mg IV Q8H PRN PRN PRN Reason: NAUSEA/VOMITING Oxycodone HCl (Oxycodone 5 Mg Tablet) 5 mg PO Q4H PRN PRN PRN Reason: Pain Score 6-10 Last Admin: 05/10/20 22:06 Dose: 5 mg Documented by: Ramipril (Ramipril 10 Mg Capsule) 10 mg PO BID [facility] Last Admin: 05/10/20 20:34 Dose: 10 mg Documented by: Senna (Senna Tablet) 1 tablet PO BID [facility] Last Admin: 05/10/20 20:34 Dose: Not Given Documented by: Sodium Chloride (0.9% Saline Lock 10 Ml Syringe) 10 - 40 ml IV UD PRN PRN Reason: SALINE FLUSH Last Admin: 05/10/20 09:55 Dose: 10 ml Documented by: Medical Necessity - Tobacco Use Smoking Status: Former smoker Tobacco Use: Cigarettes Assessment/Plan All Active Problems (Last Updated 04/14/20 @ 10:15 by Sheryl Hill) Pneumonia due to SARS-associated coronavirus (Acute) Bilateral pulmonary infiltrates on chest x-ray (Acute) Acute bronchospasm (Acute) Type 2 diabetes mellitus (Acute) Acute respiratory failure with hypoxia (Acute) Hypoxia (Acute) Hyponatremia (Acute) Respiratory failure (Acute) Femoral artery aneurysm, right (Acute) Presence of other cardiac implants and grafts (Resolved) RECOMMENDATIONS: 1. Continue to wean supplemental oxygen to maintain saturations at or above 90%. 2. Continue scheduled bronchodilators. 3. Continue Decadron 6 mg daily x10 days. 4. Continue remdesivir. 5. Potential discharge home with supplemental oxygen. IMPRESSIONS: 1. Acute hypoxic respiratory failure secondary to asthma/COPD exacerbation secondary to acute COVID-19 pneumonia Improving. The patient is able to maintain appropriate oxygen saturations on nasal cannula. The patient has already received convalescent plasma and remains on remdesivir, Decadron, Eliquis and antimicrobials. Plan to continue scheduled bronchodilator therapy. Continue to wean supplemental oxygen to maintain saturations at or above 90%. Given improvement, consideration can be given to potentially discharging the patient home without completing his full treatment course of remdesivir. I do anticipate a home-going supplemental oxygen need. 2. Obesity/extensive cardiac history/hypertension/history of knee replacement/advanced age Complicates care, management, recovery and prognosis. Okay to continue with baseline medications for now. This note was generated with [employer] dictation software. It may contain incorrect words, spelling, and punctuation that were not noted in checking the note before signing. Inpatient E&M: 26880 Subs Hosp L2
--- NOTE | 2020-05-11 10:06 | PCM.DC ---
- Discharge Diagnoses Current Active Problems: Current Active and Chronic Problems (Last Reviewed 03/08/20 @ 10:49 by Sole Tran) Pneumonia due to SARS-associated coronavirus (Acute) Bilateral pulmonary infiltrates on chest x-ray (Acute) COPD exacerbation (Chronic) Acute bronchospasm (Acute) Type 2 diabetes mellitus (Acute) Acute respiratory failure with hypoxia (Acute) Hypoxia (Acute) Hyponatremia (Acute) Respiratory failure (Acute) Atrial flutter (Chronic) Femoral artery aneurysm, right (Acute) Hyperlipidemia, unspecified (Chronic) Essential (primary) hypertension (Chronic) Presence of biventricular implantable cardioverter-defibrillator (ICD) (Chronic 04/22/12) Presence of stent in coronary artery (Chronic) x7 CX, PL, PDA of RCA Atherosclerotic heart disease of [place] coronary artery without angina pectoris (Chronic) [place] side to side to the diagonal and end to side of anterior descending, SVG to PL of RCA 05/20 Aortocoronary bypass status (Chronic ~05/17/12) CABG x3-[place] ROS[place]IO side to side to the diagonal and end to side of anterior descending, SVG to posterolateral of RCA 05/20 Carotid artery disease (Chronic) Ischemic cardiomyopathy (Chronic) Peripheral vascular disease (Chronic) You will use the following diet at home:: Regular Your food should be the consistency of: Regular Discharge Activity: Return to Normal Activity Allergies/Adverse Reactions: Allergies ciprofloxacin [From Cipro] Allergy (Verified 05/07/20 06:57) Swelling ciprofloxacin HCl [From Cipro] Allergy (Verified 05/07/20 06:57) hand Swelling Sulfa (Sulfonamide Antibiotics) Allergy (Verified 05/07/20 06:57) Unknown reaction when he was a child. Medications to take at Discharge Albuterol Inhaler [Ventolin Hfa] 1 - 2 puff INHALATION Q4H PRN PRN 12/25/13 Carvedilol [Coreg (Beta Sterling)] 6.25 mg PO BID 12/25/13 Nitroglycerin (INPATIENT USE) [Nitrostat] 0.4 mg SUBLINGUAL Q5M PRN 12/25/13 Ramipril [Altace] 10 mg PO BID 12/25/13 fluticasone propionate 50 mcg/actuation nasal spray,suspension 50 mcg INTRANASAL QDAY PRN 06/25/17 atorvastatin 80 mg tablet 80 mg PO QHS tab 08/14/17 ipratropium 0.5 mg-albuterol 3 mg (2.5 mg base)/3 mL nebulization soln 3 ml INHALATION Q4HWA.RT PRN box 09/03/18 isosorbide mononitrate 30 mg tablet,extended release 24 hr 30 mg PO BID 10/28/19 montelukast 10 mg tablet 10 mg PO DAILY 02/17/20 budesonide-formoterol HFA 160 mcg-4.5 mcg/actuation aerosol inhaler 2 puff INHALATION Q12H #3 device 03/08/20 Apixaban [Eliquis] 5 mg PO BID tab 03/31/20 oxycodone 5 mg capsule 5 - 10 mg PO Q6H PRN #56 cap 05/03/20 Amlodipine Besylate [Norvasc] 10 mg PO DAILY 05/07/20 Cetirizine HCl/Pseudoephedrine [Zyrtec-D Tablet] 1 ea PO QHS 05/07/20 Acetaminophen [Tylenol Tablet] 650 mg PO Q6H PRN PRN tablet 05/11/20 Dexamethasone [Decadron] 6 mg PO DAILY #6 tab 05/11/20 The following prescriptions were given: Dexamethasone [Decadron] 6 mg PO DAILY #6 tab Transmission Status: Pending to [facility] Primary Care Physician: Fito Velez MD [Primary Care Provider] - Please follow up with your Primary Care Physician in: in 1-2 weeks Test Results: Test results from this visit will be discussed in further detail at your follow-up appointment, if applicable. Proposed Discharge Date: 05/11/20
[2020-05-11] MEDS: Isosorbide Mononitrate 30 MG Tablet PO ×2 (11:00)
[2020-05-11] MEDS: Ramipril 10 MG Capsule PO (11:01)
[2020-05-11] MEDS: Montelukast 10 MG Tablet PO (11:01)
[2020-05-11] MEDS: amLODIPine 10 MG Tablet PO (11:01)
[2020-05-11] MEDS: Carvedilol 12.5 MG Tablet PO (11:01)
[2020-05-11] MEDS: Senna Tablet 1 TABLET PO (11:02)
[2020-05-11] MEDS: dexAMETHasone 10 MG/ML Vial 6 MG IV (11:03)
[2020-05-11] MEDS: 0.9% Saline Lock 10 ML Syringe IV (11:03)
[2020-05-11] MEDS: APIXABAN 5 MG TABLET PO (11:03)
--- NOTE | 2020-05-11 13:32 | CASEMGMT ---
RN CM Note: Call to patient's room to verify [facility] for oxygen set up. Testing completed, script signed and faxed to [facility]. Call to Chloé @ [facility], reviewed referral and she will be calling patient to attempt set up prior to him going home. Orlin MONTILLAN RN ACM
--- NOTE | 2020-05-12 13:52 | NURSING ---
ISAIAS DC F/u Call: DC Date: 05/11/2020 DC Diagnosis: Pneumonia due to SARS-associated coronavirus (Acute), Bilateral pulmonary infiltrates on chest x-ray (Acute), Acute bronchospasm (Acute), Type 2 diabetes mellitus (Acute), Acute respiratory failure with hypoxia (Acute), Hypoxia (Acute), Hyponatremia (Acute), Respiratory failure (Acute), Femoral artery aneurysm, right (Acute) DC Disposition: Home with Home O2 [employer] LACE/STRATA: 23/10 Called patient listed cell phone on demographics, answered by a female and states that she currently has patient's cell phone and provided patient home number [phone]. Called home number, no answer, rang multiple times with no VM option. ISAIAS Molina
== END 2020-05-11 16:30 | disposition home or self-care (01) | DRG 177 ==
LOC: ED 08:57 → ICU 10:34 → MS2 05-10 07:20 → ICU 05-10 07:44 → MS2 05-10 07:44
PROVIDERS: Internal Medicine Infectious Disease; Admitting Provider Internal Medicine; Emergency Provider Emergency Medicine; PCP Family Medicine; Visit Provider Internal Medicine
DX: U07.1 COVID-19 (principal); J12.89 Other viral pneumonia; J96.01 Acute respiratory failure with hypoxia; J44.0 Chronic obstructive pulmonary disease with (acute) lower respiratory infection; J44.1 Chronic obstructive pulmonary disease with (acute) exacerbation; R17 Unspecified jaundice; I48.92 Unspecified atrial flutter; E87.1 Hypo-osmolality and hyponatremia; E78.5 Hyperlipidemia, unspecified; I10 Essential (primary) hypertension; I73.9 Peripheral vascular disease, unspecified; Z95.1 Presence of aortocoronary bypass graft; I25.10 Atherosclerotic heart disease of native coronary artery without angina pectoris; N52.9 Male erectile dysfunction, unspecified; I25.5 Ischemic cardiomyopathy; E11.51 Type 2 diabetes mellitus with diabetic peripheral angiopathy without gangrene; Z66 Do not resuscitate; Z96.652 Presence of left artificial knee joint; E66.9 Obesity, unspecified; Z68.33 Body mass index [BMI] 33.0-33.9, adult; Z79.01 Long term (current) use of anticoagulants; Z85.72 Personal history of non-Hodgkin lymphomas; Z95.810 Presence of automatic (implantable) cardiac defibrillator; I45.9 Conduction disorder, unspecified; Z87.891 Personal history of nicotine dependence; K59.00 Constipation, unspecified; T38.0X5A Adverse effect of glucocorticoids and synthetic analogues, initial encounter
CPT/HCPCS: 36415; 71045; 80053; 82247; 82248; 82803; 83036; 83605; 83880; 84145; 84484; 85025; 85027; 85379; 86900; 86901; 87040; 87449; 93005; 94640; 97161; 97165; 97802; 97803; 99251; 99285; J7030; J7040; J7050; A4216; G0463; J0696; J2405

== ENCOUNTER → 2021-01-03 10:30 | Outpatient (CLI) | payer MEDICARE, OTHER, SELFPAY ==
[2021-01-03 09:26] VITALS: BMI 31.6
[2021-01-03 11:46] LABS: Absolute Lymphocyte Count 1.23 X10^3/uL (0.83-4.51); Absolute Neutrophil Count 6.6 X10^3/uL (2.0-7.7); Basophil# 0.09 X10^3/uL; Eosinophil# 0.38 X10^3/uL; Eosinophils% 4.1 % (0-5); Hematocrit 44.9 % (40-54); Lymphocyte # 1.23 X10^3/ul (0.83-4.51); Lymphocyte % 13.1 % (19-41); Mean Corp Hgb Conc 33.4 g/dL (32-36); Mean Corpuscular Hgb 29.8 pg (27.0-32.0); Mean Corpuscular Volume 89.3 fL (80-94); Mean Platelet Vol. 10.6 fl (6.2-12.0); Monocyte# 0.99 X10^3/uL; Monocyte% 10.6 % (0-10); NRBC Flagged by Analyzer 0 % (0-5); Neutrophil % 70.5 % (47-70); Platelet Count 213 K/mm3 (150-450); RBC Distribution Width CV 13.8 % (11.6-14.6); RBC Distribution Width SD 44.5 fl (35.1-43.9); Red Blood Count 5.03 M/mm3 (4.6-6.2); White Blood Count 9.4 K/mm3 (4.4-11.0)
[2021-01-03 12:25] LABS: AST(SGOT) 18 U/L (15-37); Alanine Aminotransfer ALT/SGPT 26 U/L (16-61); Albumin, Serum 3.5 g/dL (3.2-5.0); Alkaline Phosphatase 128 U/L (45-117); Anion Gap 6 (5-15); BUN 15 mg/dL (7-18); BUN/Creat Ratio 15.9 RATIO (10-20); Bilirubin, Direct 0.27 mg/dL (0.00-0.30); Calcium,Total 8.9 mg/dL (8.5-10.1); Chloride 106 mmol/L (98-107); Cholesterol 130 mg/dL (200); Creatinine, Serum 0.94 mg/dL (0.70-1.30); EST Glomerular Filtration Rate 82 mL/min (>60); Est Glom Filt Rate - Afr Amer 100 mL/min (>60); Globulin 3.6 g/dL (2.2-4.2); Glucose 100 mg/dL (74-106); High Density Lipoprotein 34 mg/dL; Magnesium 2.1 mg/dL (1.6-2.6); Potassium 4.1 mmol/L (3.5-5.1); Protein, Total 7.1 g/dL (6.4-8.2); Sodium Level 138 mmol/L (136-145); T4 Total, Thyroxin 7.8 ug/dL (4.5-12.1); Triglycerides 154 mg/dL; Very Low Density Lipoprotein 31 mg/dL (5-40)
== END ==
PROVIDERS: PCP Family Medicine; Referring Provider Internal Medicine Cardiovascular Disease; Visit Provider Internal Medicine Cardiovascular Disease
DX: I25.10 Atherosclerotic heart disease of native coronary artery without angina pectoris (principal); E78.5 Hyperlipidemia, unspecified; I10 Essential (primary) hypertension; Z95.810 Presence of automatic (implantable) cardiac defibrillator; Z95.5 Presence of coronary angioplasty implant and graft; Z95.1 Presence of aortocoronary bypass graft; I25.5 Ischemic cardiomyopathy; I48.4 Atypical atrial flutter
CPT/HCPCS: 36415; 80048; 80061; 80076; 83735; 84436; 84443; 85025

== ENCOUNTER → 2021-01-17 09:03 | Outpatient (CLI) | payer MEDICARE, OTHER, SELFPAY ==
[2021-01-03 09:26] VITALS: BMI 31.6
--- NOTE | 2021-01-17 09:04 | CDU_ITS ---
Reason For Study: Bilateral carotid stenosis Rt. Velocities/BP Lt. Velocities/BP Prox CCA 46.9/10 cm/sec. Prox CCA 56.3/10 cm/sec. Mid CCA 47.8/11 cm/sec. Mid CCA 45/10 cm/sec. Dist CCA 42.1/11.9 cm/sec. Dist CCA 38.4/10 cm/sec. Prox ICA 67.1/20.4 cm/sec. Prox ICA 279.9/95.7 cm/sec. Mid ICA 43.3/12.7 cm/sec. Mid ICA 124.2/29.9 cm/sec. Dist ICA 55/19.2 cm/sec. Dist ICA 76.9/20.4 cm/sec. Rt. ICA/CCA = 1.43. Lt. ICA/CCA = 6.22. Prox ECA 76.9/6.9 cm/sec. Prox ECA 84.3/9.3 cm/sec. Rt. Vert. 21.5/6.9 cm/sec. Lt. Vert. 30.3 cm/sec. Right Extracranial There is intimal thickening but no significant atherosclerotic plaque noted in the right common carotid artery. There is heterogeneous, irregular atherosclerotic plaque noted in the right internal carotid artery. There is intimal thickening but no significant atherosclerotic plaque noted in the right external carotid artery. Antegrade flow is noted in the right vertebral artery. Left Extracranial There is heterogeneous, smooth atherosclerotic plaque noted in the left common carotid artery. There is heterogeneous, irregular atherosclerotic plaque noted in the left internal carotid artery. The atherosclerotic plaque causes acoustic shadowing. There is intimal thickening but no significant atherosclerotic plaque noted in the left external carotid artery. Antegrade flow is noted in the left vertebral artery. Procedure Carotid Duplex 37064. This is a Carotid Duplex examination using B-mode, color flow and specral Doppler. Prelim to Rhiannon. Exam performed in department. VL/Carotid Duplex Ultrasound Interpretation Summary Irregular calcific plaque in the proximal right internal carotid artery with le ss than 50% stenosis Less than 50% stenosis right external carotid artery Patent and antegrade right vertebral Irregular calcific plaque with shadowing at the proximal left internal carotid artery with greater than 70% stenosis. Less than 50% stenosis left external carotid artery Patent and antegrade left vertebral Findings suggest slight progression of disease left internal carotid artery fro m the previous examination of January 14, 2020 Ordering Physician: Yanick Singh Referring Physician: Fito Velez Performed By: Shasta Woods RVT and Student
--- NOTE | 2021-01-17 09:04 | ART_ITS ---
Reason For Study: PAD Procedure A bilateral lower extremity continuous wave Doppler with analog waveform analysis,segmental pressures,and ankle brachial indexes with exercise. Left Segmental Pressures Left brachial= 133mmHg. Left calf = 133mmHg. Left posterior tibial artery = 137mmHg. Left dorsalis pedis artery = 124mmHg. Left digit = 113 mmHg. The left dorsalis pedis waveforms are triphasic. The left posterior tibial artery waveforms are triphasic. Right Segmental Pressures Right brachial= 138mmHg. Right posterior tibial artery = 146mmHg. Right dorsalis pedis artery = 148mmHg. Right digit = 122 mmHg. The right dorsalis pedis waveforms are triphasic. The right posterior tibial artery waveforms are triphasic. Indices The right ankle brachial index by the dorsalis pedis is 1.07. The right ankle brachial index by the posterior tibial artery is 1.06. The right digital-brachial index is 0.88. The right post exercise ankle brachial index is 0.73. The left ankle brachial index by the dorsalis pedis is 0.90. The left ankle brachial index by the posterior tibial artery is 0.99. The left digital-brachial index is 0.82. The left post exercise ankle brachial index is 0.67. VL/Lower Ext Art Exam w/ Exercise Interpretation Summary Normal right PT and DP ankle-brachial indices at rest at 1.06 and 1.07 respecti vely. Normal right digital brachial index of 0.88 Normal right posterior tibial and dorsalis pedis triphasic Doppler waveforms at rest With exercise the right JAKE goes from 1.072 immediately after exercise at 0.73 and there is recovery by 5 minutes. This is an abnormal response suggesting more proximal clinically significant occlusive disease Mildly abnormal left PT and DP ankle-brachial indices of 0.99 and 0.9 consisten t with mild disease. Normal left digital brachial index at rest of 0.82. Normal left posterior tibia l and dorsalis pedis triphasic Doppler waveforms Left JAKE goes resting 0.992 immediate after exercise at 0.67 and there is recov tiarra by 5 minutes. This is an abnormal response suggesting clinically significant stenosis more pr oximally. Ordering Physician: Yanick Singh Referring Physician: Fito Velez Performed By: Shasta Woods RVT
--- NOTE | 2021-01-17 09:04 | ADU_ITS ---
Reason For Study: PAD Right Velocities Left Velocities Ext. Iliac Artery, dist = 130.8 cm./sec. Ext Iliac Artery, dist = 182.8 cm./sec. Common Femoral Artery, mid = 133 cm./sec. Common Femoral Artery, mid = 156.9 cm./sec. Prox anast, 170 cm/sec. Supf. Femoral Artery, prox = 90.6 cm./sec. Prox graft, 76 cm/sec. SFA prox, prox stent, 101.4 cm/sec. Mid graft, 250.9 cm/sec. SFA mid, mid stent, 56.7 cm/sec. Mid graft, distal to stenosis, 136.3 cm/sec. SFA distal, distal stent, 129 cm/sec. Distal graft, 107 cm/sec. Profunda Femoral Artery = 65.8 cm./sec. Distal anast, 107 cm/sec. Popliteal Artery, proximal, = 77.8 cm./sec. SFA distal, distal to graft, 72.3 cm/sec. Popliteal Artery, mid = 58.2 cm./sec. Profunda Femoral Artery = 132.9 cm./sec. Popliteal Artery, distal = 52.5 cm./sec. Popliteal Artery, prox. = 90.6 cm./sec. Post. Tibial Artery, prox = 45 cm./sec. Popliteal Artery, mid = 60.9 cm./sec. Post Tibial Artery, mid = 37.4 cm./sec. Popliteal Artery, dist = 52.3 cm./sec. Post Tibial Artery, dist. = 52.5 cm./sec. Post. Tibial Artery, prox = 46.8 cm./sec. Peroneal Artery, prox = 32.7 cm./sec. Post. Tibial Artery, mid = 71 cm./sec. Peroneal Artery, mid = 37.4 cm./sec. Post. Tibial Artery, dist = 78.1 cm./sec. Peroneal Artery,dist. = 34.6 cm./sec. Peroneal Artery, prox = 35.4 cm./sec. Ant.Tibial Artery, prox = 50.6 cm./sec. Peroneal Artery, mid = 54.6 cm./sec. Ant Tibial Artery, mid = 36.5 cm./sec. Peroneal Artery,dist = 45.9 cm./sec. Ant. Tibial Artery, distal = 42.1 cm./sec. Ant. Tibial Artery, prox = 48.5 cm./sec. Ant. Tibial Artery, mid = 86.7 cm./sec. Ant. Tibial Artery, dist = 26.1 cm./sec. Procedure Exam performed in department. VL/US Art Duplex Bilat Lower Ext Interpretation Summary Greater than 50% stenosis right mid femoral popliteal bypass graft. Patent right popliteal artery. Patent infrageniculate arteries. Patent left superficial femoral artery with stent in place slightly diminished flow left mid SFA stent Patent left popliteal, posterior tibial, peroneal, anterior tibial arteries Compared to December 05, 2019 there is slightly diminished flow in the left mid supe rficial femoral artery stent. Ordering Physician: Yanick Singh Referring Physician: Fito Velez Performed By: Shasta Woods RVT and Student
== END ==
PROVIDERS: PCP Family Medicine; Referring Provider Surgery; Visit Provider Surgery
DX: I73.9 Peripheral vascular disease, unspecified (principal); Z95.1 Presence of aortocoronary bypass graft; Z95.5 Presence of coronary angioplasty implant and graft; I65.21 Occlusion and stenosis of right carotid artery; I77.9 Disorder of arteries and arterioles, unspecified
CPT/HCPCS: 93880; 93924; 93925

== ENCOUNTER → 2021-01-19 06:30 | Outpatient (CLI) | payer MEDICARE, OTHER, SELFPAY ==
[2021-01-03 09:26] VITALS: BMI 31.6
--- NOTE | 2021-01-19 06:32 | ECHOCS_ITS ---
Reason For Study: CAD, CABG, Aflutter Procedure This was a 2D Doppler, Color Flow transthoracic echocardiogram. The study was technically difficult. Contrast injection was performed. Exam performed in department. Left Ventricle Normal LV size. Segmental dysfunction with preserved ejection fraction (see wall motion). The estimated ejection fraction is 55 %. Diastolic function is indeterminate. [place] : Akinetic. Right Ventricle Normal RV size. ICD or pacer leads identified within the right ventricle. Normal systolic function. Atria The left atrium is mildly enlarged. Normal right atrium. ICD or pacer leads identified within the right atrium. No doppler evidence for ASD. Mitral Valve There is no mitral annular calcification. Normal mitral valve. Trivial mitral valve insufficiency. Tricuspid Valve Normal tricuspid valve. Mild to moderate (1-2+) tricuspid valve insufficiency. Right ventricular systolic pressure estimated to be 26 mmHg. Aortic Valve Trisinus/trileaflet aortic valve. Mild focal aortic valve calcification. Pulmonic Valve The pulmonic valve is not well visualized. Great Vessels Normal sized aortic root. Pericardium/Pleural No pericardial effusion. Medication Diluted definity 3ml given slow IV push to enhance endocardial definition. MMode/2D Measurements & Calculations LVIDd: 4.6 cm IVSd: 1.0 cm Ao root diam: 3.4 cm LVIDs: 3.2 cm LVPWd: 1.3 cm RVDd: 4.8 cm FS: 30.0 % LAV(MOD-bp): 49.8 ml LVAd ap4: 32.2 cm2 SV(MOD-sp4): 64.8 ml LAV(MOD-bp) Indexed: 24.0 ml/m2 LVLd ap4: 7.7 cm LAV(MOD-sp2): 50.4 ml EDV(MOD-sp4): 116.6 ml LAV(MOD-sp4): 42.9 ml EDV(sp4-el): 114.9 ml LVAs ap4: 20.6 cm2 LVLs ap4: 6.9 cm ESV(MOD-sp4): 51.8 ml ESV(sp4-el): 52.4 ml EF(MOD-sp4): 55.6 % EF(sp4-el): 54.4 % SV(sp4-el): 62.5 ml LA A4 area: 17.8 cm2 LA dimension(2D): 4.3 cm RA A4 area: 16.0 cm2 Doppler Measurements & Calculations MV E max walt: 79.6 cm/sec Lat Peak E' Walt: 7.4 cm/sec Med Peak E' Walt: 5.7 cm/sec MV A max walt: 82.7 cm/sec E/E' lat: 10.8 E/E' med: 14.0 MV E/A: 0.96 Ao V2 max: 141.8 cm/sec LV V1 max: 103.8 cm/sec PA V2 max: 77.0 cm/sec Ao max P.0 mmHg LV V1 max P.3 mmHg Ao V2 mean: 97.2 cm/sec Ao mean P.1 mmHg Ao V2 VTI: 30.7 cm TR max walt: 240.2 cm/sec TR max P.1 mmHg ECHO/Echo Complete W/ Contrast Interpretation Summary The study was technically difficult. Contrast injection was performed. Segmental dysfunction with preserved ejection fraction (see wall motion). The estimated ejection fraction is 55 %. The left atrium is mildly enlarged. Trivial mitral valve insufficiency. Mild to moderate (1-2+) tricuspid valve insufficiency. Mild focal aortic valve calcification. Right ventricular systolic pressure estimated to be 26 mmHg. Diastolic function is indeterminate. ICD or pacer leads identified within the right atrium ICD or pacer leads identified within the right ventricle. Ordering Physician: Mio Garcia Referring Physician: Fito Velez Performed By: Angelica Carney, ANDREWCS, RVT
--- NOTE | 2021-01-19 17:05 | STRESSREP ---
Stress Test Report Date: 01-19-2021 Procedure: Pharmacologic stress nuclear imaging study Indications: CAD; PCI; CABG, cardiac dysrhythmia, ICD Consent: Per the patient Procedure: The patient underwent pharmacologic (Regadenoson 0.4mg ) evaluation with a peak heart rate of 107 beats per minute (74%predicted maximal heart rate) and a peak blood pressure of 138/80 mmHg. The baseline ECG demonstrated electronic ventricular paced rhythm. The peak pharmacologic ECG demonstrated no obvious ECG changes. There was an isolated PVC in recovery. There was no complaint of chest discomfort during pharmacologic infusion or recovery. The examination was discontinued secondary to completion of protocol. Impression: 1. Pharmacologic (Regadenoson) evaluation 2. Peak pharmacologic ECG with continued electronic ventricular paced rhythm. 3. There was an isolated PVC in recovery. 4. Nuclear images pending Myocardial perfusion imaging study: Technique: The patient was injected with 14.4 millicuries of technetium 99m Cardiolite and subsequently rest SPECT Cardiolite nuclear imaging was obtained in the horizontal long, vertical long, and short axis views. The patient underwent pharmacologic (Regadenoson) evaluation with a peak heart rate of 107 beats per minute (74% percent predicted maximal heart rate) and a peak blood pressure of 138/80 mmHg. The patient was injected with 43.8 millicuries of technetium 99m Cardiolite and subsequently stress SPECT Cardiolite nuclear imaging was obtained in the horizontal long, vertical long, and short axis views. A gated Cardiolite study at peak stress was obtained. Interpretation: Rest and stress SPECT Cardiolite nuclear imaging status post realignment, normalization, and attenuation correction demonstrate relative uniform tracer uptake and myocardial perfusion appearing within normal limits. There is end systolic thickening and brightening. The gated Cardiolite study demonstrates myocardial thickening and inward wall motion. The reported LVEF is 63%. Impression: 1. Rest and stress SPECT Cardiolite nuclear imaging demonstrate relative uniform tracer uptake and myocardial perfusion appearing within normal limits. 2. The gated Cardiolite study reports an LVEF of 63%. This note was generated with Triumfant software. It may contain incorrect words, spelling, and punctuation that were not noted in checking the note before signing.
== END ==
PROVIDERS: PCP Family Medicine; Referring Provider Internal Medicine Cardiovascular Disease; Visit Provider Internal Medicine Cardiovascular Disease
DX: I25.10 Atherosclerotic heart disease of native coronary artery without angina pectoris (principal); E78.5 Hyperlipidemia, unspecified; I10 Essential (primary) hypertension; I25.5 Ischemic cardiomyopathy; I48.4 Atypical atrial flutter; Z95.810 Presence of automatic (implantable) cardiac defibrillator; Z95.5 Presence of coronary angioplasty implant and graft; Z95.1 Presence of aortocoronary bypass graft
CPT/HCPCS: 78452; 93017; 93306; A9500; Q9957; A4216; C8929; J2785; J3490

== ENCOUNTER → 2021-02-07 07:57 | Outpatient (CLI) | payer MEDICARE, OTHER, SELFPAY ==
[2021-01-28 05:15] VITALS: BMI 32.9
--- NOTE | 2021-02-07 07:58 | CT_ITS ---
EXAM: CT ANGIOGRAPHY NECK WITHOUT AND WITH INTRAVENOUS CONTRAST : 1945 CLINICAL INDICATION: carotid stenosis TECHNIQUE: Routine carotid CT angiography protocol was performed without and with intravenous contrast. Nascet criteria using the distal ICAs for comparison were used for evaluation of stenoses. This CT exam was performed using one or more of the following dose reduction techniques: automated exposure control, adjustment of the mA and/or kV according to patient size, and/or use of iterative reconstruction technique. This report was created using [employer] report generation technology. MIP reconstructed images were created and reviewed. CONTRAST: IV 100mL [id number] COMPARISON: None. FINDINGS: VASCULATURE: RIGHT COMMON CAROTID ARTERY: Unremarkable. No occlusion or significant stenosis. No dissection. RIGHT INTERNAL CAROTID ARTERY: Unremarkable. Extracranial segment is patent with no occlusion or significant stenosis. No dissection. RIGHT EXTERNAL CAROTID ARTERY: Unremarkable. No occlusion. RIGHT VERTEBRAL ARTERY: Unremarkable. No occlusion or significant stenosis. No dissection. LEFT COMMON CAROTID ARTERY: Unremarkable. No occlusion or significant stenosis. No dissection. LEFT INTERNAL CAROTID ARTERY: There is calcific plaque at the origin of the left internal carotid artery which narrows the vessel approximately 70% over a 1-2 mm segment. There is no soft plaque identified. There is no poststenotic dilatation. LEFT EXTERNAL CAROTID ARTERY: Unremarkable. No occlusion. LEFT VERTEBRAL ARTERY: Unremarkable. No occlusion or significant stenosis. No dissection. OTHER VASCULATURE: Calcific plaque in the carotid bulb bilaterally greater on the left on the right. GREAT VESSELS OF AORTIC ARCH: Unremarkable. Normal anatomy, patent. NECK: BONES/JOINTS: Unremarkable. SOFT TISSUES: Unremarkable. LUNG APICES: Clear. CAROTID STENOSIS REFERENCE USING NASCET CRITERIA: % ICA stenosis = (1 - narrowest ICA diameter/diameter of distal cervical ICA) x 100. Moderate - 50-69% stenosis. Severe - 70-94% stenosis. Near occlusion - 95-99% stenosis. Occluded - 100% stenosis. CT/CTA Neck W/WO Contrast IMPRESSION: High-grade stenosis of the origin of the left internal carotid artery with the vessel narrowed approximately 70% over the initial 1-2 mm segment due to calcific plaque. There is no soft plaque identified. All other vessels are widely patent. Individualized dose optimization techniques were used for this CT. at 1028 Reported and signed by: Gordon Wooten MD Electronically Signed: Gordon Wooten MD at 10:26 EDT Tel , Service support ,
[2021-02-07 08:16] LABS: CREATININE FINGERSTICK 0.8 mg/dL (0.70-1.30); EGFR FINGERSTICK > 60.0000 mL/min (>60)
== END ==
PROVIDERS: PCP Family Medicine; Referring Provider Surgery; Visit Provider Surgery
DX: I65.29 Occlusion and stenosis of unspecified carotid artery (principal)
CPT/HCPCS: 70498; Q9967

== ENCOUNTER 2021-02-14 12:39 | Inpatient (IN) | payer MEDICARE, OTHER, SELFPAY ==
[2021-01-28 05:15] VITALS: BMI 32.9
[2021-02-14] VITALS (12 sets, daily range): BP systolic 131–160; BP diastolic 68–87; PULSE 80–97; RESP 16–26; TEMP 36.3–38; O2SAT 4–96; BMI 32.8; BMI 31.6
--- NOTE | 2021-02-14 12:57 | RAD_ITS ---
STUDY: X-RAY CHEST REASON FOR EXAM: Male, 75 years old. Chest pain TECHNIQUE: Single AP portable view of the chest. COMPARISON: Comparison is made with prior study dated 05/10/2020. FINDINGS: EKG electrodes are seen. The lungs are clear and expanded. There is no demonstrated pleural abnormality. Sternal cerclage wires and vascular clips are present from a prior sternotomy and coronary artery bypass graft procedure (CABG). A left-sided dual-chamber pacemaker is seen. Normal mediastinum and debbie. Normal visualized pulmonary arteries. There is atherosclerotic tortuosity of the aortic arch and descending thoracic aorta. Normal visualized thoracic spine. Normal visualized ribs, clavicles, and shoulders. There is no demonstrated abnormality of the visualized soft tissue structures of the upper abdomen. RAD/Chest 1 View (Portable) IMPRESSION: No acute abnormality is seen. Electronically Signed: Ramone Mcmahon MD at 14:37 EDT , Service support ,
--- NOTE | 2021-02-14 12:57 | EKG12_ITS ---
Test Reason : CP Blood Pressure : / mmHG Vent. Rate : 095 BPM Atrial Rate : 095 BPM P-R Int : 118 ms QRS Dur : 158 ms QT Int : 432 ms P-R-T Axes : 051 266 095 degrees QTc Int : 542 ms Atrial-sensed ventricular-paced rhythm Biventricular pacemaker detected Abnormal ECG Confirmed by MASON MEYER, SHARRI ([id number]), newspaper photo editor WHITNEY SUÁREZ ([id number]) on 02/16/2021 10:36:54 AM Referred By: VERONICA Confirmed By:SHARRI CUEVAS MD
[2021-02-14 13:46] LABS: Absolute Lymphocyte Count 0.51 X10^3/uL (0.83-4.51); Absolute Neutrophil Count 26.4 X10^3/uL (2.0-7.7); Basophil# 0.14 X10^3/uL; Basophil% 0.5 % (0-1); Differential Indicated SCAN CRITERIA MET; Eosinophil# 0.06 X10^3/uL; Eosinophils% 0.2 % (0-5); Hematocrit 43.9 % (40-54); Hemoglobin 14.9 g/dL (13.0-16.5); Lymphocyte # 0.51 X10^3/ul (0.83-4.51); Lymphocyte % 1.7 % (19-41); Mean Corp Hgb Conc 33.9 g/dL (32-36); Mean Corpuscular Hgb 30.5 pg (27.0-32.0); Mean Platelet Vol. 10.2 fl (6.2-12.0); Monocyte# 2.43 X10^3/uL; Monocyte% 8.2 % (0-10); NRBC Flagged by Analyzer 0 % (0-5); Neutrophil # 26.38 X10^3/uL (2.7-7.7); Neutrophil % 88.8 % (47-70); POSITIVE DIFFERENTIAL YES; Platelet Count 189 K/mm3 (150-450); RBC Distribution Width CV 13.3 % (11.6-14.6); RBC Distribution Width SD 43.8 fl (35.1-43.9); Red Blood Count 4.88 M/mm3 (4.6-6.2); White Blood Count 29.7 K/mm3 (4.4-11.0)
[2021-02-14] MEDS: Ipratropium/Albuterol Sulfate 3 ML AMPUL.NEB INHALATION ×2 (13:53→19:32)
--- NOTE | 2021-02-14 13:53 | EDS_ITS ---
HPI History of Present Illness Chief Complaint: Chest Pain Informant: patient Narrative Narrative: Patient is a 75-year-old male with a past medical history of significant CAD with stents, bypass, AICD, diabetes, COPD who presents to the emergency department for shortness of breath, chest and back pain, cough. He developed a fever today as well. He states he does have a chronic cough but it has become more consistent. He denies any increase in sputum production. He first noticed the fever today and it was up to 101. He did get his first dose of the Covid vaccine 2 weeks ago. He has not been feeling well since then. He has right upper back pain and right-sided chest pain especially when coughing. He has not been taking anything for this except for Tylenol. He denies any leg swelling past baseline. No nausea/vomiting or diarrhea. He does wear 2 L of supplemental oxygen at nighttime. He has felt himself wheezing lately. He has been feeling short of breath especially when he exerts himself. He has a former smoking history and quit 10 years ago. [facility] Medical History Allergic rhinitis Atherosclerotic heart disease of [place] coronary artery without angina pectoris Atrial flutter CAD (coronary artery disease) Carotid artery disease COPD (chronic obstructive pulmonary disease) COVID-19 Essential (primary) hypertension Femoral artery aneurysm, right Hyperlipidemia, unspecified Influenza B Ischemic cardiomyopathy Near syncope Nicotine dependence in remission NSVT (nonsustained ventricular tachycardia) Obesity BHARAT (obstructive sleep apnea) Peripheral vascular disease Shortness of breath T-cell lymphoma Home Medications albuterol sulfate 1 - 2 puff INHALATION Q4H PRN PRN 12/25/13 [History Last Taken 05/06/20] ramipril 10 mg PO BID 12/25/13 [History Last Taken 05/07/20] fluticasone propionate 50 mcg/actuation nasal spray,suspension 50 mcg INTRANASAL QDAY PRN 06/25/17 [History Last Taken 05/07/20] atorvastatin 80 mg tablet 80 mg PO QHS tab 08/14/17 [History Last Taken 05/06/20] ipratropium 0.5 mg-albuterol 3 mg (2.5 mg base)/3 mL nebulization soln 3 ml INHALATION Q4HWA.RT PRN box 09/03/18 [History Last Taken 05/06/20] isosorbide mononitrate 30 mg tablet,extended release 24 hr 30 mg PO BID 10/28/19 [History Last Taken 05/07/20] montelukast 10 mg tablet 10 mg PO DAILY 02/17/20 [History Last Taken 05/07/20] budesonide-formoterol HFA 160 mcg-4.5 mcg/actuation aerosol inhaler 2 puff INHALATION Q12H #3 device 03/08/20 [Rx Last Taken 05/06/20] amlodipine 10 mg PO DAILY 05/07/20 [History Last Taken 05/07/20] cetirizine-pseudoephedrine 1 ea PO QHS 05/07/20 [History Last Taken Unknown] acetaminophen 650 mg PO Q6H PRN PRN tab 05/11/20 [Rx Last Taken Unknown] metformin 500 mg tablet 500 mg PO DAILY tab 06/28/20 [History Last Taken Unknown] apixaban 5 mg tablet 5 mg PO BID #180 tab 11/10/20 [Rx Last Taken Unknown] nitroglycerin 0.4 mg sublingual tablet 0.4 mg SUBLINGUAL Q5M PRN #25 tab 01/03/21 [Rx Last Taken Unknown] carvedilol 12.5 mg tablet 12.5 mg PO BID #180 tab 01/20/21 [Rx Last Taken Unknown] amiodarone 200 mg tablet 200 mg PO DAILY #30 tab 01/26/21 [Rx Last Taken Unknown] Allergy/AdvReac Type Severity Reaction Status Date / Time ciprofloxacin [From Cipro] Allergy Swelling Verified 02/14/21 12:41 ciprofloxacin HCl Allergy hand Verified 02/14/21 12:41 [From Cipro] Swelling Sulfa (Sulfonamide Allergy Unknown Verified 02/14/21 12:41 Antibiotics) Family History Father Heart disease Cancer Prostate Brother Cancer prostate cancer Surgical History Aortocoronary bypass status (~05/17/12) h/o left TKA History of left knee replacement History of permanent cardiac pacemaker placement History of tonsillectomy Hx of CABG Presence of biventricular implantable cardioverter-defibrillator (ICD) (04/22/12) Presence of other cardiac implants and grafts Presence of stent in coronary artery Social History Smoking Status: Former smoker pack-years: 73 how long ago did patient quit smokin years ago second hand exposure: No alcohol intake: current alcohol intake frequency: holidays/special occasions only Alcohol type: beer substance use type: does not use caffeine: Yes Type: carbonated beverages Number of servings: 1 ROS ROS ED Constitutional Constitutional ED: Reports chills and fever(s) Eyes Eyes: Denies change in vision ENT ENT ED: Denies epistaxis or rhinorrhea Cardiovascular Cardiovascular: Reports chest pain; Denies palpitations Respiratory/Chest Respiratory/Chest: Reports cough and dyspnea; Denies sputum Gastrointestinal Gastrointestinal: Denies abdominal pain, diarrhea, nausea or vomiting Genitourinary Genitourinary ED: Denies dysuria, hematuria or urinary frequency Musculoskeletal Musculoskeletal: Denies neck pain Integumentary Denies rash Neurologic Neurologic: Denies dizziness, headache(s) or weakness EXAM Physical Exam Const Vital Signs: 02/14/21 12:41 02/14/21 13:51 02/14/21 14:15 Temperature 100.4 F H 98.9 F Temperature Source Temporal Temporal Pulse Rate 97 91 92 Respiratory Rate 16 20 H 26 H Respiratory Effort Short of Breath Labored Accessory Muscle Use Retracting Respiratory Pattern Normal Tachypnea Blood Pressure 160/81 H 149/87 H Blood Pressure Mean 107 107 Pulse Ox 93 93 Oxygen Delivery Method Room Air Nasal Cannula Oxygen Flow Rate (L/min) 2 Positive well nourished and well developed General Appearance ED: well developed and NAD HEENT Reports normocephalic and head/scalp atraumatic Eyes PERRL and EOMs intact bilaterally Neck supple Chest Wall inspection of chest normal Resp Auscultation: diminished lung sounds; Negative for rales, rhonchi or wheezes Cardio regular rate, regular rhythm and no murmurs GI normal to inspection, nondistended, normoactive bowel sounds and non-tender Palpation: soft; Negative for guarding or rebound tenderness present Back/Spine no CVA tenderness Extremity normal to inspection Extremity Narrative: 1+ edema bilaterally. He states that this is chronic. General Extremety ED: Negative for tenderness Neuro no sensory deficits noted Sensorium / Orientation: alert Motor Exam: strength 5/5 throughout Psych mental status grossly normal Skin no rashes or lesions noted MDM MDM MDM Narrative Medical decision making narrative: Patient presents to the emergency department for shortness of breath, cough, fever chest pain/back pain. On arrival to the emergency department he is febrile. His oxygen saturation is 93%. He does have some increased work of breathing. Decreased breath sounds on the right. Will check Covid swab as he is only had 1 dose of the vaccine so far as well as chest x-ray. Basic lab work with lactic acid and blood cultures being obtained. Patient's Covid swab was negative. His lactic acid within normal limits. Does meet SIRS criteria with a very high white blood cell count. Denies being on any recent steroids. Chest x-ray did not reveal any obvious pneumonia but with the cough, fever, leukocytosis we will place him on antibiotics with Rocephin and azithromycin. He is feeling better after the breathing treatment but still satting 88% on 2 L sitting in bed. Given this fact we will bring him to the hospital for further evaluation and management. He otherwise has remained stable throughout ED stay. He understands and is agreeable this plan. All questions are answered. Lab Data Labs: Laboratory Results - last 24 hr 02/14/21 02/14/21 02/14/21 13:35 13:35 14:25 WBC 29.7 H RBC 4.88 Hgb 14.9 Hct 43.9 MCV 90.0 MCH 30.5 MCHC 33.9 RDW Std Deviation 43.8 RDW Coeff of Kip 13.3 Plt Count 189 MPV 10.2 Immature Gran % (Auto) 0.600 Neut % (Auto) 88.8 H Lymph % (Auto) 1.7 L Bonner % (Auto) 8.2 Eos % (Auto) 0.2 Baso % (Auto) 0.5 Absolute Neuts (auto) 26.4 H Absolute Lymphs (auto) 0.51 L Nucleated RBC % 0 Differential Comment SCANNED Diff Path Review May foll Platelet Estimate ADEQUATE Sodium 135 L Potassium 3.5 Chloride 104 Carbon Dioxide 23.0 Anion Gap 8 BUN 15 Creatinine 0.99 Estim Creat Clear Calc 58.42 Est GFR (MDRD) Af Amer 94 Est GFR (MDRD) Non-Af 78 BUN/Creatinine Ratio 15.1 Glucose 150 H Lactic Acid 1.5 Calcium 8.7 Troponin I High Sens 12.0 Radiography Diagnostic Testing: Radiology Impression Chest X-Ray 02/14/21 12:57 IMPRESSION: No acute abnormality is seen. Electronically Signed: Ramone Mcmahon MD at 14:37 EDT , Service support , EKG Initial EKG: Attestation: I personally reviewed and interpreted this EKG as follows: (Rate of 95 bpm in a paced rhythm. No significant ST elevations or depressions appreciated.) Discharge Plan Dx/Rx/DC Orders Clinical Impression: SIRS (systemic inflammatory response syndrome), Hypoxia, Cough Disposition Disposition: Acute Care Hospital [facility]
[2021-02-14 14:02] LABS: Anion Gap 8 (5-15); BUN 15 mg/dL (7-18); BUN/Creat Ratio 15.1 RATIO (10-20); Calcium,Total 8.7 mg/dL (8.5-10.1); Chloride 104 mmol/L (98-107); Creatinine, Serum 0.99 mg/dL (0.70-1.30); EST Glomerular Filtration Rate 78 mL/min (>60); Est Glom Filt Rate - Afr Amer 94 mL/min (>60); Estimated Creatinine Clearance 58.42 ml/min; Glucose 150 mg/dL (74-106); Potassium 3.5 mmol/L (3.5-5.1); Sodium Level 135 mmol/L (136-145)
[2021-02-14 14:08] LABS: Differential Comment SCANNED; Platelet Estimate ADEQUATE (ADEQ)
[2021-02-14] MEDS: Morphine 4 MG/ML Syringe IV (14:14)
[2021-02-14 15:05] LABS: Lactic Acid 1.5 mmol/L (0.4-1.9)
--- NOTE | 2021-02-14 15:39 | HP.PCM.HOS_ITS ---
HPI - General General Date of Admission: 02/14/21 Date of Service: 02/14/21 Chief Complaint: Fever, SOB, Chest pain HPI Narrative The patient is a 75 y/o M w/ PMHx: Chronic COPD w/ Chronic Hypoxic Respiratory Failure (2L q HS only), CAD s/p CABG and PCI, Carotid artery disease, HTN, HLD, PAF, BHARAT, Ischemic Cardiomyopathy, Former Tobacco use, Hx T-cell lymphoma, Obesity, history of COVID recovered status from 05/2020 admission, recently received 1st dose COVID Pfizer vaccination 2 weeks prior who now presents to the [facility] ED on 02/14/21 with history of since then worsening dyspnea more so with any exertion, increasing fatigue/ malaise, non-productive cough, R sided pleuritic chest pain/R sided back pain worse with coughing in addition to occasional wheezing/tightness sensation as well as frontal throbbing headache, subjective fever and chills as well as diffuse severe body aches with no nausea, emesis, diarrhea or alteration sense of taste or smell prompting ED evaluation. Work-up in the ED included T initially 100.4 temporally, heart rate 97, BP 160/81 initially, respiratory rate ranging 16-26, however eventually became hypoxic down to 88% requiring increased to 4 L nasal cannula to maintain 92%, WBC 29.7, hemoglobin 14.9, platelet 189 with left shift and lymphopenia, BMP with sodium 135, glucose 150, lactic acid 1.5, high-sensitivity troponin 12, magnesium 1.7, rapid Covid antigen negative, chest x-ray with no acute cardiopulmonary findings. In the ED patient administered morphine, DuoNeb, Rocephin and azithromycin therapy. Additionally blood culture x2 obtained per ED physician. COUNT INCLUDES [facility] Medical History Allergic rhinitis Atherosclerotic heart disease of [place] coronary artery without angina pectoris Atrial flutter CAD (coronary artery disease) Carotid artery disease COPD (chronic obstructive pulmonary disease) COVID-19 Essential (primary) hypertension Femoral artery aneurysm, right Hyperlipidemia, unspecified Influenza B Ischemic cardiomyopathy Near syncope Nicotine dependence in remission NSVT (nonsustained ventricular tachycardia) Obesity BHARAT (obstructive sleep apnea) Peripheral vascular disease Shortness of breath T-cell lymphoma Home Medications albuterol sulfate 1 - 2 puff INHALATION Q4H PRN PRN 12/25/13 [History Last Taken 05/06/20] ramipril 10 mg PO BID 12/25/13 [History Last Taken 02/13/21] fluticasone propionate 50 mcg/actuation nasal spray,suspension 50 mcg INTRANASAL QDAY PRN 06/25/17 [History Last Taken 02/13/21] atorvastatin 80 mg tablet 80 mg PO QHS tab 08/14/17 [History Last Taken 02/13/21] ipratropium 0.5 mg-albuterol 3 mg (2.5 mg base)/3 mL nebulization soln 3 ml INHALATION Q4HWA.RT PRN box 09/03/18 [History Last Taken 05/06/20] isosorbide mononitrate 30 mg tablet,extended release 24 hr 30 mg PO BID 10/28/19 [History Last Taken 02/13/21] montelukast 10 mg tablet 10 mg PO DAILY 02/17/20 [History Last Taken 02/13/21] budesonide-formoterol HFA 160 mcg-4.5 mcg/actuation aerosol inhaler 2 puff INHALATION Q12H #3 device 03/08/20 [Rx Last Taken 02/14/21] amlodipine 10 mg PO DAILY 05/07/20 [History Last Taken 02/13/21] cetirizine-pseudoephedrine 1 ea PO QHS 05/07/20 [History Last Taken 02/13/21] metformin 500 mg tablet 500 mg PO BID tab 06/28/20 [History Last Taken 02/13/21] apixaban 5 mg tablet 5 mg PO BID #180 tab 11/10/20 [Rx Last Taken 02/13/21] nitroglycerin 0.4 mg sublingual tablet 0.4 mg SUBLINGUAL Q5M PRN #25 tab 01/03/21 [Rx Last Taken Unknown] carvedilol 12.5 mg tablet 12.5 mg PO BID #180 tab 01/20/21 [Rx Last Taken 02/13/21] amiodarone 200 mg tablet 200 mg PO DAILY #30 tab 01/26/21 [Rx Last Taken 02/13/21] acetaminophen [Tylenol Extra Strength] 1,000 mg PO Q6H PRN 02/14/21 [History Last Taken 02/14/21] Allergy/AdvReac Type Severity Reaction Status Date / Time ciprofloxacin [From Cipro] Allergy Swelling Verified 02/14/21 12:41 ciprofloxacin HCl Allergy hand Verified 02/14/21 12:41 [From Cipro] Swelling Sulfa (Sulfonamide Allergy Unknown Verified 02/14/21 12:41 Antibiotics) Family History Father Heart disease Cancer Prostate Brother Cancer prostate cancer no significant family history (Patient denies any marked maternal family history including HD, DM, CM.) Surgical History Aortocoronary bypass status (~05/17/12) h/o left TKA History of left knee replacement History of permanent cardiac pacemaker placement History of tonsillectomy Hx of CABG Presence of biventricular implantable cardioverter-defibrillator (ICD) (04/22/12) Presence of other cardiac implants and grafts Presence of stent in coronary artery Social History (Updated 02/14/21 @ 17:[address] Tamar Apodaca MD) household members: none Smoking Status: Former smoker pack-years: 73 how long ago did patient quit smokin years ago second hand exposure: No alcohol intake: current alcohol intake frequency: holidays/special occasions only Alcohol type: beer substance use type: does not use caffeine: Yes Type: carbonated beverages Number of servings: 1 ROS ROS Narrative Admission Review of Systems: CONSTITUTIONAL: No weight loss, + fever, chills, weakness or fatigue. HEENT: Eyes: No visual loss, blurred vision, double vision or yellow sclerae. Ears, Nose, Throat: No hearing loss, sneezing, congestion, runny nose or sore throat. SKIN: No rash or itching, lesions, wounds. CARDIOVASCULAR: + chest pain, chest pressure or chest discomfort, No palpitatio ns, edema, orthopnea, syncopal events. RESPIRATORY: + shortness of breath, cough without marked sputum, wheezing, No hemoptysis. GASTROINTESTINAL: + anorexia, No nausea, vomiting or diarrhea, abdominal pain, melena, BRBPR. GENITOURINARY: No dysuria, frequency, urgency or retention. NEUROLOGICAL: No headache, dizziness, syncope, paralysis, ataxia, numbness or tingling in the extremities, focal weakness, change in bowel or bladder control, seizure. MUSCULOSKELETAL: + muscle, back pain, joint pain or stiffness. HEMATOLOGIC: + anemia, bleeding or bruising. LYMPHATICS: No enlarged nodes. No history of splenectomy. PSYCHIATRIC: No history of depression or anxiety. ENDOCRINOLOGIC: No reports of sweating, cold or heat intolerance. No polyuria or polydipsia. ALLERGIES: No history of asthma, hives, eczema or rhinitis. Vital Signs Vital Signs Vital Signs: 02/14/21 12:41 02/14/21 13:51 02/14/21 14:15 Temperature 100.4 F H 98.9 F Temperature Source Temporal Temporal Pulse Rate 97 91 92 Respiratory Rate 16 20 H 26 H Respiratory Effort Short of Breath Labored Accessory Muscle Use Retracting Respiratory Pattern Normal Tachypnea Blood Pressure 160/81 H 149/87 H Blood Pressure Mean 107 107 Pulse Ox 93 93 Oxygen Delivery Method Room Air Nasal Cannula Oxygen Flow Rate (L/min) 2 Weight Weight: 210 lb Body Mass Index (BMI) 32.8 Physical Exam Narrative Physical Examination: General: Awake, alert, oriented x 3 and cooperative, seated upright in the ED bed, fatigued and ill-appearing. Skin: Normal color, normal turgor, no icterus, no cyanosis. HEENT: AT/NC, EOMI, PERRLA, dry MM, no carotid bruits or JVD noted. Lungs: Severely diffusely diminished, poor movement, tight, mildly increased respiratory rate but no significant distress, no rales, ronchi or wheezing. Heart: Mildly tachycardic with regular rhythm; no gallop, rub audible. Abdomen: Soft, NTTP, ND, distant hypoactive BS, no obvious HSM. Extremities: No cyanosis, clubbing, or edema. Neurological: Patient awake, alert, oriented as noted, cognitive function intact; pupils equally reactive to light and accommodation, cranial nerves II- XII grossly normal, moving all 4 extremities, no focal deficits, strength severely global degree secondary to acute presentation. Psychiatric: Affect appears fatigued, ill-appearing, no acute evidence of depressive or anxiety feelings. Results Lab / Micro Data Result Diagrams: 02/14/21 13:35 02/14/21 13:35 Labs: Laboratory Results - last 24 hr 02/14/21 13:35: WBC 29.7 H, RBC 4.88, Hgb 14.9, Hct 43.9, MCV 90.0, MCH 30.5, MCHC 33.9, RDW Std Deviation 43.8, RDW Coeff of Kip 13.3, Plt Count 189, MPV 10.2, Immature Gran % (Auto) 0.600, Neut % (Auto) 88.8 H, Lymph % (Auto) 1.7 L, [place] % (Auto) 8.2, Eos % (Auto) 0.2, Baso % (Auto) 0.5, Absolute Neuts (auto) 26.4 H, Absolute Lymphs (auto) 0.51 L, Nucleated RBC % 0, Differential Comment SCANNED, Diff Path Review November, Platelet Estimate ADEQUATE 02/14/21 13:35: Sodium 135 L, Potassium 3.5, Chloride 104, Carbon Dioxide 23.0, Anion Gap 8, BUN 15, Creatinine 0.99, Estim Creat Clear Calc 58.42, Est GFR (MDRD) Af Amer 94, Est GFR (MDRD) Non-Af 78, BUN/Creatinine Ratio 15.1, Glucose 150 H, Calcium 8.7, Troponin I High Sens 12.0 02/14/21 14:25: Lactic Acid 1.5 Micro: Microbiology 02/14/21 14:20 Mucosa - Nose SARS-CoV-2 Antigen (Rapid) - Final Radiology Impression Chest X-Ray 02/14/21 12:57 IMPRESSION: No acute abnormality is seen. Electronically Signed: Ramone Mcmahon MD at 14:37 EDT , Service support , Assessment & Plan Assessment/Plan (1) SIRS (systemic inflammatory response syndrome): (2) Hypoxia: PLAN: The patient is a 75 y/o M w/ PMHx: Chronic COPD w/ Chronic Hypoxic Respiratory Failure (2L q HS only), CAD s/p CABG and PCI, Carotid artery disease, HTN, HLD, PAF, BHARAT, Ischemic Cardiomyopathy, Former Tobacco use, Hx T- cell lymphoma, Obesity, history of COVID recovered status from 05/2020 admission, recently received 1st dose COVID Pfizer vaccination 2 weeks prior who now presents to the [facility] ED on 02/14/21 with history of since then worsening dyspnea more so with any exertion, increasing fatigue/ malaise, non-productive cough, R sided pleuritic chest pain/R sided back pain worse with coughing in addition to occasional wheezing/tightness sensation as well as frontal throbbing headache, subjective fever and chills as well as diffuse severe body aches with no nausea, emesis, diarrhea or alteration sense of taste or smell prompting ED evaluation. 1. Acute Sepsis secondary to Acute COPD Exacerbation with Chronic Hypoxic Respiratory Failure with Acute Respiratory Insufficiency, Possible Clinical PNA versus Acute Viral Syndrome, COVID-19 versus Acute Vaccination Reaction: Currently discussed with ED physician and Covid PCR pending given timeline of symptoms. In the interim we will admit to PCU, maintain on oxygen with wean as tolerated to home supplementation nightly only, will utilize BiPAP nightly, continue ATC DuoNebs and as needed albuterol, initiate IV Solu-Medrol regimen, will continue for the interim IV Rocephin and azithromycin pending further evaluation including respiratory viral panel, Covid PCR as noted, procalcitonin, sputum cultures and urine antigens. Bld cx x 2 obtained in the ED. If Covid is positive will then need to initiate additional work-up including D-dimer, CRP, CPK, Ferritin, LDH, trop and BNP. We will plan judicious hydration and repeat chest x-ray in a.m. in case developing pneumonia. If any concerns may consider infectious disease consultation additionally. Leukocytosis could be from poor oral intake, dehydration given significantly reduced intake per discussion with patient. 2. Ischemic cardiomyopathy: We will continue patient home Eliquis, statin therapy, Coreg, ramipril regimen, not on any diuretic regimen. 01/19/2021 echocardiogram with segmental dysfunction with preserved EF, EF 55%, mildly enlarged LA, trivial MVI, mild to moderate TVI, RVSP 26 mmHg, diastolic function indeterminate, evidence pacer/ICD leads in the right atrium and right ventricle. 3. CAD: Status post CABG and PCI, continue patient home Eliquis, statin therapy, Coreg, ramipril regimen. 01/19/2021 card neck stress testing within normal limits. 4. Hypertension: Continue home regimen including ramipril, isosorbide, Coreg with hold parameters, PRN hydralazine. 5. Hyperlipidemia: Continue home statin regimen. 6. Diabetes mellitus type II: Hold oral home regimen, continue home insulin regimen, ADA diet, accu checks w/ ISS. 7. PAF: We will continue patient home amiodarone, Coreg and Eliquis regimen. 8. Obesity: Weight loss and lifestyle changes encouraged. 9. Former tobacco use: Encourage continued tobacco cessation. 10. BHARAT: We will attempt BiPAP nightly per discussion with patient is unclear if CPAP versus BiPAP given underlying COPD history will offer BiPAP. 11. DVT prophylaxis: SCDs, continue home Eliquis regimen. 12. CODE status: Patient does not have healthcare power of commonwealth attorney nor living will set up but is interested in information therefore recommended patient discuss these items with case management/social work during his admission. Discussed CODE status at length including difference between FULL code, DNR-CCA and DNR-CC status. Following discussions about the differences in these status, requested Full Code status. Advanced Care Planning Face to Face Time: 16 minutes. Charges/Coding Visit Charges Inpatient E&M: 42173 Init Hosp L3 Procedures Hospitalists Procedures: 35125 Advncd Care Plan 30 Min
[2021-02-14 16:41] LABS: Magnesium 1.7 mg/dL (1.6-2.6)
[2021-02-14 16:53] LABS: Procalcitonin 0.18 ng/mL (0.00-0.09)
[2021-02-14] MEDS: 0.9% Normal Saline 1,000 ML 100 ML IV (18:09)
[2021-02-14] MEDS: Atorvastatin Calcium 80 MG Tablet PO (20:30)
[2021-02-14] MEDS: Montelukast 10 MG Tablet PO (20:30)
[2021-02-14] MEDS: Carvedilol 12.5 MG Tablet PO (20:30)
[2021-02-14] MEDS: Isosorbide Mononitrate 30 MG Tablet PO (20:30)
[2021-02-14] MEDS: Ramipril 10 MG Capsule PO (20:30)
[2021-02-14] MEDS: APIXABAN 5 MG TABLET PO (20:30)
--- NOTE | 2021-02-14 22:03 | CPS ---
Pt. has sleep apnea and typically wears a PAP machine at night. I asked if he'd like to use on of our machines for the night, the pt. politely refused and stated that he would wear supplemental oxygen for the night.
[2021-02-15] VITALS (14 sets, daily range): BP systolic 117–141; BP diastolic 64–78; PULSE 69–94; RESP 18–26; TEMP 36.4–36.6; O2SAT 94–96
[2021-02-15] MEDS: 0.9% Normal Saline 1,000 ML 100 ML IV ×3 (04:06→23:30)
[2021-02-15 04:22] LABS: Bacteria 0 SEEN /hpf (None Seen); Mucous, Urine 0 SEEN /hpf (<or=2+); Red Blood Cells-Urine 0 SEEN /hpf (0-5); Squamous Epithelial Cells - UA 0 SEEN /hpf (0-5); White Blood Cells 0 SEEN /hpf (0-5)
[2021-02-15 04:25] LABS: Color, Urine Yellow (Yellow); Glucose, Dipstick 250 mg/dl (Normal); Ketone-Dipstick Negative (Negative); Leukocyte Esterase-Dipstick Negative /ul (Negative); Nitrite-Dipstick Negative (Negative); Occult Blood-Urine Negative /ul (Negative); Protein-Dipstick Negative (Negative); Urine Bilirubin Dipstick Negative (Negative); Urine Clarity Clear (Clear); Urine Urobilinogen Normal (Normal)
--- NOTE | 2021-02-15 05:55 | RAD_ITS ---
STUDY: X-RAY CHEST REASON FOR EXAM: Male, 75 years old. Dyspnea, cough TECHNIQUE: Single AP portable view of the chest. COMPARISON: Comparison is made with prior study 02/14/2021. FINDINGS: EKG electrodes are seen. There now is evidence of a mild degree of increased bilateral perihilar markings as well as increased markings in the left lower lobe. This may represent mild degree of bibasilar infiltrates. There is no demonstrated pleural abnormality. Sternal cerclage wires and vascular clips are present from a prior sternotomy and coronary artery bypass graft procedure (CABG). A left-sided dual-chamber pacemaker is seen. Normal mediastinum and debbie. Normal visualized pulmonary arteries. There is atherosclerotic calcification of the aortic arch with tortuosity. There are degenerative changes of the visualized thoracic spine. Normal visualized ribs, clavicles, and shoulders. There is no demonstrated abnormality of the visualized soft tissue structures of the upper abdomen. RAD/Chest 1 View (Portable) IMPRESSION: Findings suggest a mild degree of the right perihilar and left basilar early infiltrates. Electronically Signed: Ramone Mcmahon MD at 10:22 EDT , Service support ,
[2021-02-15] MEDS: Ipratropium/Albuterol Sulfate 3 ML AMPUL.NEB INHALATION ×4 (06:56→18:40)
[2021-02-15] MEDS: Loratadine 10 MG Tablet PO (10:26)
[2021-02-15] MEDS: Carvedilol 12.5 MG Tablet PO ×2 (10:26→21:26)
[2021-02-15] MEDS: Amiodarone 200 MG Tablet PO (10:26)
[2021-02-15] MEDS: amLODIPine 10 MG Tablet PO (10:27)
[2021-02-15] MEDS: APIXABAN 5 MG TABLET PO ×2 (10:27→21:27)
[2021-02-15] MEDS: Isosorbide Mononitrate 30 MG Tablet PO ×2 (10:27→21:26)
[2021-02-15] MEDS: Ramipril 10 MG Capsule PO ×2 (10:28→21:26)
--- NOTE | 2021-02-15 11:25 | CASEMGMT ---
SALVADOR MENA assessment: Face to Face with patient for initial transition planning/care coordination assessment. SALVADOR MENA introduced self and role at [facility], pt voices understanding and consents to assessment. Pt is sitting up in bed in no distress on room air. Pt is A/Ox4 and answers all questions appropriately. Care providers, pharmacy, and demographics verified/updated. Presentation: CP, SOB that started this am, fever, right shoulder pain-pt states had 1st COVID vaccine end of January and had COVID last fall Admitting dx: Sepsis, hypoxia, COPD PCP: Rosie Specialists: Sukhjinder, pultalha; Radha, cardio Preferred Pharmacy: [facility] Insurance: [facility] A/B, AARP Prescription Benefit: [facility] D Living Will/HPOA: Pt states does not have LW/HPOA but would like AD info. Pt to be provided with AD paperwork. LNOK: Klaudia Bagley, daughter; Sharri Olmos, friend; Thang Faith, son Living Arrangements: Pt states lives alone in apt and states no concerns at home. Pt states is independent with ADL's. Transportation: Pt states drives self and states no transportation concerns. DME/HHC: Pt states has a walker and 2L nc at bedtime thru [employer]. Pt states no hx of HHC or SNF. Pt states no concerns with going home at time of discharge. Pt is retired. Pt states does not smoke cigarettes and rarely drinks ETOH. Pt states no further concerns/needs. CM to follow for any further discharge planning/needs. Advised pt to ask for CM if any further questions/concerns/needs arise, voices understanding. PT Goal: Home Plan: Home [place] [facility]OR MENA
[2021-02-15] MEDS: Ceftriaxone 1 GM/50 ML BAG IV (12:51)
[2021-02-15 13:30] LABS: Pathologist Review Reviewed
--- NOTE | 2021-02-15 14:52 | CHAPLAIN ---
Type of Pastoral Visit _x__ Initial Visit ___ Follow-up Visit ___ On-call Visit ___ General Patient Visit ___ Spiritual Assessment ___ Family Conference ___ Bereavement ___ Rapid Response ___ Code Blue ___ Other (describe below) Pastoral Care Referral From _x__ Patient ___ Family ___ Nurse ___ Physician ___ Senior Mobile Web Developer ___ Vehicle Assembler ___ Other (describe below) Sacrament/Intervention _x__ Active listening ___ Anointing ___ Anabaptist ___ Bereavement ___ Communion ___ Harleen exploration ___ _x__ Life review _x__ Prayer ___ Reconciliation ___ Sacrament of Sick _x__ Supportive presence ___ Wedding ___ Other (describe below) Pastoral Comments
--- NOTE | 2021-02-15 17:41 | PN.HOSP_ITS ---
Subjective Subjective Doing better, feels much better today than he did yesterday. He is on currently room air, he does require 4 L at night. Normally he only needs 2 L nasal cannula. Objective Data Objective Data Vital Signs: Vital Signs Temp Pulse Resp BP Pulse Ox 97.9 F 83 24 H 133/73 H 94 02/15/21 09:58 02/15/21 14:52 02/15/21 14:52 02/15/21 09:58 02/15/21 15:06 Oxygen Flow Rate (L/min) 4 Oxygen Delivery Method Room Air Weight: 208 lb 5.389 oz Body Mass Index (BMI) 31.6 Intake & Output: Intake and Output for Last 24 Hours 02/14/21 02/15/21 02/16/21 03:59 03:59 03:59 Intake Total 305 / 305 2300 / 2300 Balance 305 / 305 2300 / 2300 Medical Nutrition Assessment Dietitian: Nutrition Therapy Diagnosis Start: 02/15/21 13:21 Freq: Status: Active Protocol: Document 02/15/21 15:21 RMA (Rec: 02/15/21 15:21 RMA [id number]) Nutrition Malnutrition Evidence of Malnutrition Exists No Clinical Problem Altered Nutrient-Related Laboratory Values Etiology related to acute illness and endocrine dysfunction Signs/Symptoms as evidenced by blood glucose 150 Status Active Problem Recommendation Dietitian Recommendations/Changes Will change diet to Carbohydrate-Controlled/ Cardiac. ONS only if PO fails at meals, will defer for now. Diet education as needed prior to d/c. Lab / Micro Data Result Diagrams: 02/14/21 13:35 02/14/21 13:35 Labs: Laboratory Results - last 24 hr 02/14/21 13:35: Diff Path Review Reviewed 02/14/21 19:51: COVID-19 (NEYMAR) Not Detected 02/15/21 04:10: Urine Color Yellow, Urine Clarity Clear, Urine pH 6.0, Ur Specific [place] 1.010, Urine Protein Negative, Urine Glucose (UA) 250 H, Urine Ketones Negative, Urine Occult Blood Negative, Urine Nitrite Negative, Urine Bilirubin Negative, Urine Urobilinogen Normal, Ur Leukocyte Esterase Negative, Urine RBC 0 SEEN, Urine WBC 0 SEEN, Ur Squamous Epith Cells 0 SEEN, Urine Bacteria 0 SEEN, Urine Mucus 0 SEEN Micro: Microbiology 02/15/21 04:10 Urine, Clean Catch Legionella Antigen - Final 02/15/21 04:10 Urine, Clean Catch Streptococcus pneumoniae Antigen (M - Final 02/14/21 19:51 Interface Orders Respiratory Panel (PCR) - Final 02/14/21 14:20 Mucosa - Nose SARS-CoV-2 Antigen (Rapid) - Final Radiography Diagnostic Testing: Radiology Impression Chest X-Ray 02/15/21 05:55 IMPRESSION: Findings suggest a mild degree of the right perihilar and left basilar early infiltrates. Electronically Signed: Ramone Mcmahon MD at 10:22 EDT , Service support , Physical Exam Const alert, oriented x3 and no apparent distress General Appearance: cooperative HEENT normocephalic and moist oral mucous membranes Eyes PERRL, EOMs intact bilaterally and conjunctivae normal Neck supple and no JVD Resp normal respiratory effort, no retractions, no use of accessory muscles and clear to auscultation bilaterally Auscultation: diminished lung sounds; Negative for crackles, rales, rhonchi or wheezes Cardio regular rate, regular rhythm, S1 normal heart sound, S2 normal heart sound and no murmurs GI soft to palpation, non-tender and non-distended; Negative for hepatosplenomegaly Extremity no clubbing, cyanosis or edema Skin no rashes or lesions noted Neuro no focal motor deficits and no sensory deficits noted Psych affect normal Appearance: appropriate Assessment & Plan Assessment/Plan (1) SIRS (systemic inflammatory response syndrome): (2) Hypoxia: PLAN: 1. Sepsis secondary to COPD exacerbation with possible pneumonia -Chest x-ray with hilar infiltrates -Covid is negative, he had Covid in May and has received 1 shot of the Pfizer vaccine so far -Viral panel was negative -Continue Solu-Medrol and inhalers -Continue with antibiotics 2. CAD status post CABG and stents/HTN/HLD/A. fib -Continue with Eliquis and rate control medications -Blood pressure is stable, continue with home blood pressure medications -Continue with Lipitor 3. DM2 -We will hold his home regimens in place 1 sliding scale insulin -Accu-Cheks AC at bedtime -Make adjustments as necessary DVT: Eliquis Charges/Coding Visit Charges Inpatient E&M: 10175 Subs Hosp L2
[2021-02-15] MEDS: Montelukast 10 MG Tablet PO (21:26)
[2021-02-15] MEDS: Atorvastatin Calcium 80 MG Tablet PO (21:26)
[2021-02-16] VITALS (7 sets, daily range): BP systolic 111–141; BP diastolic 68–77; PULSE 74–82; RESP 16–20; TEMP 36.5–36.7; O2SAT 90–96
[2021-02-16 07:13] LABS: Absolute Lymphocyte Count 0.56 X10^3/uL (0.83-4.51); Absolute Neutrophil Count 20.9 X10^3/uL (2.0-7.7); Basophil# 0.05 X10^3/uL; Basophil% 0.2 % (0-1); Eosinophil# 1.14 X10^3/uL; Eosinophils% 4.7 % (0-5); Hematocrit 38.2 % (40-54); Hemoglobin 12.6 g/dL (13.0-16.5); Lymphocyte # 0.56 X10^3/ul (0.83-4.51); Lymphocyte % 2.3 % (19-41); Mean Corpuscular Hgb 30.4 pg (27.0-32.0); Mean Platelet Vol. 10.7 fl (6.2-12.0); Monocyte# 1.05 X10^3/uL; Monocyte% 4.4 % (0-10); NRBC Flagged by Analyzer 0 % (0-5); Neutrophil # 20.86 X10^3/uL (2.7-7.7); Neutrophil % 86.7 % (47-70); POSITIVE DIFFERENTIAL YES; POSITIVE MORPHOLOGY YES; Platelet Count 194 K/mm3 (150-450); RBC Distribution Width CV 13.3 % (11.6-14.6); RBC Distribution Width SD 45.4 fl (35.1-43.9); Red Blood Count 4.15 M/mm3 (4.6-6.2); White Blood Count 24.1 K/mm3 (4.4-11.0)
[2021-02-16 07:15] LABS: Differential Indicated SCAN CRITERIA MET
[2021-02-16] MEDS: Ipratropium/Albuterol Sulfate 3 ML AMPUL.NEB INHALATION ×2 (07:16→11:16)
[2021-02-16 07:58] LABS: ALB/GLOB Ratio 0.8 RATIO (0.9-2.4); AST(SGOT) 11 U/L (15-37); Alanine Aminotransfer ALT/SGPT 21 U/L (16-61); Albumin, Serum 2.7 g/dL (3.2-5.0); Alkaline Phosphatase 99 U/L (45-117); Anion Gap 7 (5-15); BUN 23 mg/dL (7-18); Calcium,Total 8.3 mg/dL (8.5-10.1); Chloride 110 mmol/L (98-107); EST Glomerular Filtration Rate 77 mL/min (>60); Est Glom Filt Rate - Afr Amer 93 mL/min (>60); Estimated Creatinine Clearance 59.85 ml/min; Globulin 3.3 g/dL (2.2-4.2); Glucose 236 mg/dL (74-106); Potassium 3.8 mmol/L (3.5-5.1); Sodium Level 139 mmol/L (136-145)
[2021-02-16] MEDS: Ceftriaxone 1 GM/50 ML BAG IV (09:14)
[2021-02-16] MEDS: Ramipril 10 MG Capsule PO (09:16)
[2021-02-16] MEDS: Amiodarone 200 MG Tablet PO (09:16)
[2021-02-16] MEDS: Loratadine 10 MG Tablet PO (09:16)
[2021-02-16] MEDS: Isosorbide Mononitrate 30 MG Tablet PO (09:16)
[2021-02-16] MEDS: Carvedilol 12.5 MG Tablet PO (09:16)
[2021-02-16] MEDS: APIXABAN 5 MG TABLET PO (09:17)
[2021-02-16] MEDS: amLODIPine 10 MG Tablet PO (09:17)
--- NOTE | 2021-02-16 10:57 | PCM.DC ---
Discharge Instructions Diet Discharge Diet: No restrictions Activity Discharge Activity: Return to Normal Activity Weight Bearing Status: Weight bearing as tolerated Dressing / Incision Call your doctor if you observe: Fever of 101 or Higher, Numbness or Tingling, Shortness of breath, Dizziness, Chest pain, Increased palpitations (irregular heartbeat) and Calf discomfort Follow Up Care Please Follow Up With: Primary care provider When: Within the next two weeks. Test Results: Test results from this visit will be discussed in further detail at your follow-up appointment, if applicable. Discharge Plan Admission Admit Date/Time: 02/14/21 16:22 Primary Reason for Your Visit: Shortness of breath Attending Provider: Giselle Ramires Primary Care Provider: Fito Velez Discharge Orders/Prescriptions Prescriptions: New levofloxacin 500 mg tablet 500 mg PO DAILY Qty: 5 RF: 0 prednisone 10 mg tablet See Taper mg PO DAILY Qty: 30 RF: 0 Continued fluticasone propionate [Flonase Allergy Relief] 50 mcg/actuation spray,suspension 50 mcg INTRANASAL QDAY PRN (Reason: Congestion) RF: 0 ipratropium-albuterol 0.5 mg-3 mg(2.5 mg base)/3 mL solution for nebulization 3 ml INHALATION Q4HWA.RT PRN (Reason: Sob &/Or Wheezing) RF: 0 isosorbide mononitrate 30 mg tablet extended release 24 hr 30 mg PO BID RF: 0 montelukast 10 mg tablet 10 mg PO DAILY RF: 0 Symbicort 160-4.5 mcg/actuation HFA aerosol inhaler 2 puff INHALATION Q12H Qty: 3 RF: 3 nitroglycerin 0.4 mg tablet, sublingual 0.4 mg SUBLINGUAL Q5M PRN (Reason: Chest Pain) Qty: 25 RF: 3 metformin 500 mg tablet 500 mg PO BID RF: 0 albuterol sulfate 1 INHALER inhaler 1 - 2 puff INHALATION Q4H PRN PRN (Reason: Wheezing) RF: 0 ramipril 10 MG capsule 10 mg PO BID RF: 0 atorvastatin 80 MG tablet 80 mg PO QHS RF: 0 amlodipine 10 MG tablet 10 mg PO DAILY RF: 0 cetirizine-pseudoephedrine 1 EACH tablet extended release 12 hr 1 ea PO QHS RF: 0 acetaminophen [Tylenol Extra Strength] 500 mg Tablet 1,000 mg PO Q6H PRN (Reason: Pain) RF: 0 Eliquis 5 mg tablet 5 mg PO BID Qty: 180 RF: 3 carvedilol 12.5 mg tablet 12.5 mg PO BID Qty: 180 RF: 4 amiodarone 200 mg tablet 200 mg PO DAILY Qty: 30 RF: 6 Referrals / Follow Up: Fito Velez MD [Primary Care Provider] - Within 2 Weeks Disposition Disposition (needs filled in before D/C Order can be placed): Home, Self Care
--- NOTE | 2021-02-16 11:23 | CASEMGMT ---
Per therapy, no further therapy recommended. Pt does not qualify for any increased home oxygen at discharge either. Antwan FRANCO CM
--- NOTE | 2021-02-16 12:30 | PHA.DC.MC ---
Pharmacy Service has performed discharge medication reconciliation and counseling for this patient. 1. LEVOFLOXACIN 500MG PO DAILY X 7 DAYS 2. PREDNISONE 40MG PO DAILY FOR 3 DAYS, THEN 30MG X 3 DAYS, THEN 20MG X 3 DAYS, THEN 10MG X 3 DAYS The patient's discharge medication list was reviewed for discrepancies and discrepancies were resolved. Home Medications albuterol sulfate 1 - 2 puff INHALATION Q4H PRN PRN 12/25/13 ramipril 10 mg PO BID 12/25/13 fluticasone propionate 50 mcg/actuation nasal spray,suspension 50 mcg INTRANASAL QDAY PRN 06/25/17 atorvastatin 80 mg tablet 80 mg PO QHS tab 08/14/17 ipratropium 0.5 mg-albuterol 3 mg (2.5 mg base)/3 mL nebulization soln 3 ml INHALATION Q4HWA.RT PRN box 09/03/18 isosorbide mononitrate 30 mg tablet,extended release 24 hr 30 mg PO BID 10/28/19 montelukast 10 mg tablet 10 mg PO DAILY 02/17/20 budesonide-formoterol HFA 160 mcg-4.5 mcg/actuation aerosol inhaler 2 puff INHALATION Q12H #3 device 03/08/20 amlodipine 10 mg PO DAILY 05/07/20 cetirizine-pseudoephedrine 1 ea PO QHS 05/07/20 metformin 500 mg tablet 500 mg PO BID tab 06/28/20 apixaban 5 mg tablet 5 mg PO BID #180 tab 11/10/20 nitroglycerin 0.4 mg sublingual tablet 0.4 mg SUBLINGUAL Q5M PRN #25 tab 01/03/21 carvedilol 12.5 mg tablet 12.5 mg PO BID #180 tab 01/20/21 amiodarone 200 mg tablet 200 mg PO DAILY #30 tab 01/26/21 acetaminophen [Tylenol Extra Strength] 1,000 mg PO Q6H PRN 02/14/21 levofloxacin 500 mg PO DAILY #5 tab 02/16/21 prednisone See Taper PO DAILY #30 tab 02/16/21 The patient was counseled on the following discharge medications and changes in medications for homegoing were reviewed. The Reason for Use, instructions for use, and potential side effects were reviewed for all new medications. The patient's questions regarding all of their medications were answered. The patient was able to verbally demonstrate an understanding of their discharge medications.
--- NOTE | 2021-02-16 15:18 | PCM.DC.SUM ---
Documented by User: Ebenezer BERMUDEZ 02/16/21 15:26 Providers Date of Admission: 02/14/21 Primary Care Physician: Dr. Fito Velez MD Reason For Visit: SIRS / COPD EXACERBATION / HYPOXIA Diagnosis Discharge Diagnosis (1) SIRS (systemic inflammatory response syndrome): Status: Acute Code(s): R65.10 - Systemic inflammatory response syndrome (SIRS) of non-infectious origin without acute organ dysfunction (2) Hypoxia: Status: Acute Code(s): R09.02 - Hypoxemia Medications at Discharge Home Medications albuterol sulfate 1 - 2 puff INHALATION Q4H PRN PRN 12/25/13 ramipril 10 mg PO BID 12/25/13 fluticasone propionate 50 mcg/actuation nasal spray,suspension 50 mcg INTRANASAL QDAY PRN 06/25/17 atorvastatin 80 mg tablet 80 mg PO QHS tab 08/14/17 ipratropium 0.5 mg-albuterol 3 mg (2.5 mg base)/3 mL nebulization soln 3 ml INHALATION Q4HWA.RT PRN box 09/03/18 isosorbide mononitrate 30 mg tablet,extended release 24 hr 30 mg PO BID 10/28/19 montelukast 10 mg tablet 10 mg PO DAILY 02/17/20 budesonide-formoterol HFA 160 mcg-4.5 mcg/actuation aerosol inhaler 2 puff INHALATION Q12H #3 device 03/08/20 amlodipine 10 mg PO DAILY 05/07/20 cetirizine-pseudoephedrine 1 ea PO QHS 05/07/20 metformin 500 mg tablet 500 mg PO BID tab 06/28/20 apixaban 5 mg tablet 5 mg PO BID #180 tab 11/10/20 nitroglycerin 0.4 mg sublingual tablet 0.4 mg SUBLINGUAL Q5M PRN #25 tab 01/03/21 carvedilol 12.5 mg tablet 12.5 mg PO BID #180 tab 01/20/21 amiodarone 200 mg tablet 200 mg PO DAILY #30 tab 01/26/21 acetaminophen [Tylenol Extra Strength] 1,000 mg PO Q6H PRN 02/14/21 levofloxacin 500 mg PO DAILY #5 tab 02/16/21 prednisone See Taper PO DAILY #30 tab 02/16/21 Hospital Course Summary of Care Provided Minutes Spent on Discharge: 35 Hospital Course: Disposition: Patient to be discharged home, no additional home health care needs or additional therapies identified. 1) sepsis secondary to COPD exacerbation with possible pneumonia Patient reports improvement of shortness of breath from admission. Vital signs stable patient is afebrile, currently satting 94% on room air. Patient still does have a leukocytosis at 24,000, however this is improved to admission and WBCs could possibly be elevated due to Solu-Medrol given during admission. Plan; continue bronchodilators, prednisone taper initiated on discharge, initiate Levaquin x5 days on discharge. 2) CAD status post CABG & stents/HTN/HLD/PAF Continue Eliquis, continue amiodarone, carvedilol, isosorbide, ramipril and statin. 3) DM2 Continue home diabetic regimen. Patient seen by Ebenezer Polanco PA-C, under the supervision of Dr. Ramires. Physical Exam Narrative Patient is a 75-year-old male comfortably resting in bed, alert and orient x3. Patient reports resolution of shortness of breath and cough from admission. Denies chest pain, shortness of breath, palpitations, hemoptysis, sputum production, fever, chills, N/V/D. Const alert, oriented x3 and no apparent distress HEENT normocephalic, head/scalp atraumatic and hearing grossly normal bilaterally Eyes EOMs intact bilaterally and conjunctivae normal Neck no lymphadenopathy, supple and no JVD Resp normal respiratory effort, no retractions and no use of accessory muscles Auscultation: diminished lung sounds Cardio regular rate, regular rhythm, no murmurs and no JVD GI normal to inspection, nondistended, normoactive bowel sounds, soft to palpation and non-tender Extremity normal to inspection, full ROM and no clubbing, cyanosis or edema Skin no rashes or lesions noted, no wounds and skin turgor normal Neuro CN's II-XII intact bilaterally Psych affect normal Weight / BMI Weight Weight: 208 lb 5.389 oz Body Mass Index (BMI) 31.6 ABG / Lab / Microbiology Data Result Diagrams: 02/16/21 05:50 02/16/21 05:50 Laboratory: Laboratory Results - last 24 hr 02/16/21 05:50: WBC 24.1 H, RBC 4.15 L, Hgb 12.6 L, Hct 38.2 L, MCV 92.0, MCH 30.4, MCHC 33.0, RDW Std Deviation 45.4 H, RDW Coeff of Kip 13.3, Plt Count 194, MPV 10.7, Immature Gran % (Auto) 1.700 H, Neut % (Auto) 86.7 H, Lymph % (Auto) 2.3 L, [place] % (Auto) 4.4, Eos % (Auto) 4.7, Baso % (Auto) 0.2, Absolute Neuts (auto) 20.9 H, Absolute Lymphs (auto) 0.56 L, Nucleated RBC % 0 02/16/21 05:50: Sodium 139, Potassium 3.8, Chloride 110 H, Carbon Dioxide 22.0, Anion Gap 7, BUN 23 H, Creatinine 1.00, Estim Creat Clear Calc 59.85, Est GFR (MDRD) Af Amer 93, Est GFR (MDRD) Non-Af 77, BUN/Creatinine Ratio 23.0 H, Glucose 236 H, Calcium 8.3 L, Total Bilirubin 0.60, AST 11 L, ALT 21, Alkaline Phosphatase 99, Total Protein 6.0 L, Albumin 2.7 L, Globulin 3.3, Albumin/Globulin Ratio 0.8 L Microbiology: Microbiology 02/14/21 14:20 Blood Culture (Wb) - Anticubital Left Blood Culture - Preliminary No growth in 48 hours. 02/14/21 14:25 Blood Culture (Wb) - Arm Left Blood Culture - Preliminary No growth in 48 hours. 02/15/21 04:10 Urine, Clean Catch Legionella Antigen - Final 02/15/21 04:10 Urine, Clean Catch Streptococcus pneumoniae Antigen (M - Final 02/14/21 19:51 Interface Orders Respiratory Panel (PCR) - Final 02/14/21 14:20 Mucosa - Nose SARS-CoV-2 Antigen (Rapid) - Final D/C Instructions Discharge Diet: No restrictions Weight Bearing Status: Weight bearing as tolerated Call your doctor if you observe: Fever of 101 or Higher, Numbness or Tingling, Shortness of breath, Dizziness, Chest pain, Increased palpitations (irregular heartbeat) and Calf discomfort Please Follow Up With: Primary care provider When: Within the next two weeks. Meaningful Use Info Meaningful Use Diagnoses (Choose all that apply): None applicable Discharge Plan Admission Admit Date/Time: 02/14/21 16:22 Primary Reason for Your Visit: Shortness of breath Attending Provider: Giselle Ramires Primary Care Provider: Fito Velez Discharge Orders/Prescriptions Prescriptions: New levofloxacin 500 mg tablet 500 mg PO DAILY Qty: 5 RF: 0 prednisone 10 mg tablet See Taper mg PO DAILY Qty: 30 RF: 0 Continued fluticasone propionate [Flonase Allergy Relief] 50 mcg/actuation spray,suspension 50 mcg INTRANASAL QDAY PRN (Reason: Congestion) RF: 0 ipratropium-albuterol 0.5 mg-3 mg(2.5 mg base)/3 mL solution for nebulization 3 ml INHALATION Q4HWA.RT PRN (Reason: Sob &/Or Wheezing) RF: 0 isosorbide mononitrate 30 mg tablet extended release 24 hr 30 mg PO BID RF: 0 montelukast 10 mg tablet 10 mg PO DAILY RF: 0 Symbicort 160-4.5 mcg/actuation HFA aerosol inhaler 2 puff INHALATION Q12H Qty: 3 RF: 3 nitroglycerin 0.4 mg tablet, sublingual 0.4 mg SUBLINGUAL Q5M PRN (Reason: Chest Pain) Qty: 25 RF: 3 metformin 500 mg tablet 500 mg PO BID RF: 0 albuterol sulfate 1 INHALER inhaler 1 - 2 puff INHALATION Q4H PRN PRN (Reason: Wheezing) RF: 0 ramipril 10 MG capsule 10 mg PO BID RF: 0 atorvastatin 80 MG tablet 80 mg PO QHS RF: 0 amlodipine 10 MG tablet 10 mg PO DAILY RF: 0 cetirizine-pseudoephedrine 1 EACH tablet extended release 12 hr 1 ea PO QHS RF: 0 acetaminophen [Tylenol Extra Strength] 500 mg Tablet 1,000 mg PO Q6H PRN (Reason: Pain) RF: 0 Eliquis 5 mg tablet 5 mg PO BID Qty: 180 RF: 3 carvedilol 12.5 mg tablet 12.5 mg PO BID Qty: 180 RF: 4 amiodarone 200 mg tablet 200 mg PO DAILY Qty: 30 RF: 6 Referrals / Follow Up: Fito Velez MD [Primary Care Provider] - Within 2 Weeks (Please call to setup an appointment. ) Disposition Disposition (needs filled in before D/C Order can be placed): Home, Self Care Documented by User: Dr. Giselle Ramires DO 02/16/21 16:24 Providers Date of Admission: 02/14/21 Reason For Visit: SIRS / COPD EXACERBATION / HYPOXIA Medications at Discharge Home Medications albuterol sulfate 1 - 2 puff INHALATION Q4H PRN PRN 12/25/13 ramipril 10 mg PO BID 12/25/13 fluticasone propionate 50 mcg/actuation nasal spray,suspension 50 mcg INTRANASAL QDAY PRN 06/25/17 atorvastatin 80 mg tablet 80 mg PO QHS tab 08/14/17 ipratropium 0.5 mg-albuterol 3 mg (2.5 mg base)/3 mL nebulization soln 3 ml INHALATION Q4HWA.RT PRN box 09/03/18 isosorbide mononitrate 30 mg tablet,extended release 24 hr 30 mg PO BID 10/28/19 montelukast 10 mg tablet 10 mg PO DAILY 02/17/20 budesonide-formoterol HFA 160 mcg-4.5 mcg/actuation aerosol inhaler 2 puff INHALATION Q12H #3 device 03/08/20 amlodipine 10 mg PO DAILY 05/07/20 cetirizine-pseudoephedrine 1 ea PO QHS 05/07/20 metformin 500 mg tablet 500 mg PO BID tab 06/28/20 apixaban 5 mg tablet 5 mg PO BID #180 tab 11/10/20 nitroglycerin 0.4 mg sublingual tablet 0.4 mg SUBLINGUAL Q5M PRN #25 tab 01/03/21 carvedilol 12.5 mg tablet 12.5 mg PO BID #180 tab 01/20/21 amiodarone 200 mg tablet 200 mg PO DAILY #30 tab 01/26/21 acetaminophen [Tylenol Extra Strength] 1,000 mg PO Q6H PRN 02/14/21 levofloxacin 500 mg PO DAILY #5 tab 02/16/21 prednisone See Taper PO DAILY #30 tab 08/11/21 Hospital Course Operations None Summary of Care Provided Minutes Spent on Discharge: 38 Hospital Course: Mr. Faith is a 75-year-old male who presented to the emergency department [facility] on 02/14/2021 with a chief complaint of fever, shortness of breath, and chest pain. Upon presentation the patient states he recently obtained his first Covid vaccination 2 weeks prior to admission and states he is had worsening shortness of breath since that point in time with exertion. He is also was complaining of increasing fatigue/malaise, nonproductive cough and right-sided pleuritic chest pain with coughing. He also noted occasional wheezing and tightness in his chest. He had subjective fever and chills and his temperature in the emergency department was 100.4. His vital signs were otherwise stable. Upon transfer to the medical floor he ended up with an oxygen saturation of 88% which required 4 L nasal cannula to maintain 92% or above. He had an elevated white blood cell count at 29.7. His chest x-ray on admission was negative. He was placed on broad-spectrum antibiotics as well as steroids and cultures were obtained. His blood cultures were negative at 48 hours. His respiratory viral panel was negative. Strep pneumo and Legionella antigens were negative. Within 24 hours of admission the patient's oxygen saturation improved dramatically and he was able to be weaned to 2 L nasal cannula and at 48 hours he was completely weaned off oxygen. On the day of discharge he reported that he is 100% improved since admission. His white count had trended down despite steroid use and he had no further temperature elevations. Prior to discharge she was satting 94% on room air. He was discharged to complete antibiotic course with Levaquin. I discussed his Cipro allergy with him and he states that he had had hand swelling only with the ciprofloxacin and was willing to take the Levaquin. He was also discharged on a steroid taper. Was recommended that he follow-up with his primary care physician in 1 to 2 weeks. Discharge diagnoses: Acute hypoxic respiratory insufficiency-resolved Suspected pneumonia Acute exacerbation of COPD [place] ptosis CAD Hypertension Hyperlipidemia PAF Carotid artery stenosis Ischemic cardiomyopathy PVD DM-2 Physical Exam Narrative Patient states he is feeling 100% better since admission and feels that he is very close to baseline. He is anxious to go home. Const alert, oriented x3, no apparent distress and well nourished Constitutional Narrative: Older white male sitting up in the chair at the bedside, on room air, nontoxic-appearing, appears comfortable General Appearance: cooperative, comfortable and well kempt Orientation / Consciousness: awake HEENT normocephalic, head/scalp atraumatic, moist oral mucous membranes and oropharynx normal HEENT Narrative: Mild [place] Eyes PERRL, EOMs intact bilaterally and conjunctivae normal Neck supple Neck Narrative: Trachea midline Resp normal respiratory effort, no retractions, no use of accessory muscles and clear to auscultation bilaterally Auscultation: Negative for crackles, rales, rhonchi or wheezes Cardio regular rate, regular rhythm, S1 normal heart sound, S2 normal heart sound, no murmurs, no rub, no gallops, no clicks and no JVD GI normal to inspection, nondistended, normoactive bowel sounds, soft to palpation, non-tender and non-distended Extremity normal to inspection and no clubbing, cyanosis or edema Skin no rashes or lesions noted, no wounds, skin turgor normal and no jaundice Neuro oriented x3, CN's II-XII intact bilaterally, moves all extremities and no focal motor deficits Sensorium / Orientation: awake and alert Speech: speech normal Psych affect normal ABG / Lab / Microbiology Data Result Diagrams: 02/16/21 05:50 02/16/21 05:50 Discharge Plan Admission Admit Date/Time: 02/14/21 16:22 Primary Reason for Your Visit: Shortness of breath Attending Provider: Giselle Ramires Primary Care Provider: Fito Velez Discharge Orders/Prescriptions Prescriptions: New levofloxacin 500 mg tablet 500 mg PO DAILY Qty: 5 RF: 0 prednisone 10 mg tablet See Taper mg PO DAILY Qty: 30 RF: 0 Continued fluticasone propionate [Flonase Allergy Relief] 50 mcg/actuation spray,suspension 50 mcg INTRANASAL QDAY PRN (Reason: Congestion) RF: 0 ipratropium-albuterol 0.5 mg-3 mg(2.5 mg base)/3 mL solution for nebulization 3 ml INHALATION Q4HWA.RT PRN (Reason: Sob &/Or Wheezing) RF: 0 isosorbide mononitrate 30 mg tablet extended release 24 hr 30 mg PO BID RF: 0 montelukast 10 mg tablet 10 mg PO DAILY RF: 0 Symbicort 160-4.5 mcg/actuation HFA aerosol inhaler 2 puff INHALATION Q12H Qty: 3 RF: 3 nitroglycerin 0.4 mg tablet, sublingual 0.4 mg SUBLINGUAL Q5M PRN (Reason: Chest Pain) Qty: 25 RF: 3 metformin 500 mg tablet 500 mg PO BID RF: 0 albuterol sulfate 1 INHALER inhaler 1 - 2 puff INHALATION Q4H PRN PRN (Reason: Wheezing) RF: 0 ramipril 10 MG capsule 10 mg PO BID RF: 0 atorvastatin 80 MG tablet 80 mg PO QHS RF: 0 amlodipine 10 MG tablet 10 mg PO DAILY RF: 0 cetirizine-pseudoephedrine 1 EACH tablet extended release 12 hr 1 ea PO QHS RF: 0 acetaminophen [Tylenol Extra Strength] 500 mg Tablet 1,000 mg PO Q6H PRN (Reason: Pain) RF: 0 Eliquis 5 mg tablet 5 mg PO BID Qty: 180 RF: 3 carvedilol 12.5 mg tablet 12.5 mg PO BID Qty: 180 RF: 4 amiodarone 200 mg tablet 200 mg PO DAILY Qty: 30 RF: 6 Referrals / Follow Up: Fito Velez MD [Primary Care Provider] - Within 2 Weeks (Please call to setup an appointment. ) Disposition Disposition (needs filled in before D/C Order can be placed): Home, Self Care Charges/Coding Visit Charges Inpatient E&M: 55398 Disch Hosp
--- NOTE | 2021-02-17 13:29 | CASEMGMT ---
SALVADOR MENA Discharge Follow-up Phone Call: RUTH: Jamilah Strata: 3 Call Date: 02/17/21 Discharge Date: 02/16/21 Time of Call: 1325 Duration: 3 min Admitting Diagnosis: SIRS, COPD, Hypoxia SALVADOR MENA completed follow-up phone call after recent hospitalization. Patient states he is doing just fine. Patient was able to fill prescriptions without any issues. Patient had no questions regarding discharge instructions. Patient states PCP office it to call him back to schedule an appt. Patient had no further questions or concerns.
== END 2021-02-16 12:35 | disposition home or self-care (01) | DRG 871 ==
LOC: ED 15:49 → PCU 02-15 06:47
PROVIDERS: Family Medicine; Admitting Provider Family Medicine; Emergency Provider Emergency Medicine; PCP Family Medicine; Visit Provider Internal Medicine
DX: A41.9 Sepsis, unspecified organism (principal); J18.9 Pneumonia, unspecified organism; J44.1 Chronic obstructive pulmonary disease with (acute) exacerbation; J44.0 Chronic obstructive pulmonary disease with (acute) lower respiratory infection; J96.11 Chronic respiratory failure with hypoxia; I25.5 Ischemic cardiomyopathy; I25.10 Atherosclerotic heart disease of native coronary artery without angina pectoris; E11.51 Type 2 diabetes mellitus with diabetic peripheral angiopathy without gangrene; E66.9 Obesity, unspecified; I10 Essential (primary) hypertension; E78.5 Hyperlipidemia, unspecified; G47.33 Obstructive sleep apnea (adult) (pediatric); Z95.1 Presence of aortocoronary bypass graft; Z95.5 Presence of coronary angioplasty implant and graft; Z86.16 Personal history of COVID-19; Z87.891 Personal history of nicotine dependence; Z79.01 Long term (current) use of anticoagulants; Z66 Do not resuscitate; I48.0 Paroxysmal atrial fibrillation; J30.9 Allergic rhinitis, unspecified; Z96.652 Presence of left artificial knee joint; Z82.49 Family history of ischemic heart disease and other diseases of the circulatory system; Z68.32 Body mass index [BMI] 32.0-32.9, adult; Z85.46 Personal history of malignant neoplasm of prostate; Z88.1 Allergy status to other antibiotic agents; Z88.2 Allergy status to sulfonamides; Z95.0 Presence of cardiac pacemaker; Z79.4 Long term (current) use of insulin; Z85.6 Personal history of leukemia
CPT/HCPCS: 36415; 71045; 80048; 80053; 81001; 83605; 83735; 84145; 84484; 85025; 87040; 87426; 87449; 87633; 87635; 93005; 94640; 97161; 97166; 99251; 99285; J7030; U0005; A4216; G0463; J0696; U0003

== ENCOUNTER → 2021-07-28 08:54 | Day surgery (SDC) | payer MEDICARE, OTHER, SELFPAY ==
[2021-07-21 10:15] LABS: Color, Urine Yellow (Yellow); Glucose, Dipstick Normal (Normal); Hematocrit 40.3 % (40-54); Hemoglobin 13.3 g/dL (13.0-16.5); Ketone-Dipstick Negative (Negative); Leukocyte Esterase-Dipstick 25 /ul (Negative); Mean Corpuscular Hgb 30.3 pg (27.0-32.0); Mean Corpuscular Volume 91.8 fL (80-94); Mean Platelet Vol. 10.3 fl (6.2-12.0); Nitrite-Dipstick Negative (Negative); Occult Blood-Urine Negative /ul (Negative); Platelet Count 270 K/mm3 (150-450); Protein-Dipstick Negative (Negative); RBC Distribution Width CV 13.3 % (11.6-14.6); RBC Distribution Width SD 45.1 fl (35.1-43.9); Red Blood Count 4.39 M/mm3 (4.6-6.2); Specific Gravity, Urine 1.015 (1.002-1.030); Urine Bilirubin Dipstick Negative (Negative); Urine Clarity Clear (Clear); Urine Urobilinogen 1 mg/dl (Normal); Urine pH 6.5 (5.0 - 8.0); White Blood Count 10.5 K/mm3 (4.4-11.0)
[2021-07-21 10:23] LABS: International Normalized Ratio 1.1; Prothrombin Time (Protime)PT. 13.6 SECONDS (11.7-14.9)
[2021-07-21 10:46] LABS: Bacteria 0 SEEN /hpf (None Seen); Mucous, Urine 0 SEEN /hpf (<or=2+); Red Blood Cells-Urine 0 SEEN /hpf (0-5); Squamous Epithelial Cells - UA 0 SEEN /hpf (0-5); White Blood Cells 0 SEEN /hpf (0-5)
[2021-07-21 10:48] LABS: AST(SGOT) 18 U/L (15-37); Alanine Aminotransfer ALT/SGPT 42 U/L (16-61); Albumin, Serum 2.9 g/dL (3.2-5.0); Alkaline Phosphatase 118 U/L (45-117); Anion Gap 7 (5-15); BUN 17 mg/dL (7-18); BUN/Creat Ratio 15.5 RATIO (10-20); Bilirubin, Direct 0.22 mg/dL (0.00-0.30); Calcium,Total 8.3 mg/dL (8.5-10.1); Chloride 104 mmol/L (98-107); Cholesterol 120 mg/dL (200); EST Glomerular Filtration Rate 69 mL/min (>60); Est Glom Filt Rate - Afr Amer 83 mL/min (>60); Globulin 3.9 g/dL (2.2-4.2); Glucose 158 mg/dL (74-106); High Density Lipoprotein 37 mg/dL; Potassium 3.8 mmol/L (3.5-5.1); Protein, Total 6.8 g/dL (6.4-8.2); Sodium Level 138 mmol/L (136-145); Triglycerides 139 mg/dL; Very Low Density Lipoprotein 28 mg/dL (5-40)
[2021-07-27 08:23] VITALS: BMI 32.2
--- NOTE | 2021-07-28 08:29 | HP.PCM_ITS ---
History and Physical Date of Admission: 07/28/21 This is a 75-year-old white male who presents today for a generator change. He has a history of CAD, PCI, CABG, ischemic mediated cardiomyopathy, chronic systolic CHF, paroxysmal atrial flutter, paroxysmal nonsustained VT, biventricular ICD, carotid artery disease, hyperlipidemia, hypertension, superimposed upon BHARAT/COPD. From a cardiac standpoint, the patient is doing well. He denies any palpitations, chest pain, pressure or heaviness. He denies SOB, Orthopnea, and PND. He does not have bleeding issues; no blood in urine, stool or nosebleeds. He denies any decrease in energy level, myalgias, or claudication. He denies edema, or sudden weight gain. He does state he has occasional dizziness with quick positional changes. He denies lightheadedness, syncopal or near syncopal episodes, and headaches. Intake Vital Signs: See EMR Intake Visit Reasons: ICD Generator Change Utility Driver Required: No Accompanied by: None Is patient in pain?: No Allergies ciprofloxacin [From Cipro] Allergy (Verified 06/22/21 09:22) Swelling ciprofloxacin HCl [From Cipro] Allergy (Verified 06/22/21 09:22) hand Swelling Sulfa (Sulfonamide Antibiotics) Allergy (Verified 06/22/21 09:22) Unknown Medications: See EMR [facility] Medical History (Reviewed 06/22/21 @ 08:24 by Jasmin Box REHABILITATION PROGRAM MANAGER, REHABILITATION PROGRAM MANAGER-C) Allergic rhinitis Atherosclerotic heart disease of [place] coronary artery without angina pectoris Atrial flutter CAD (coronary artery disease) Carotid artery disease COPD (chronic obstructive pulmonary disease) COVID-19 Essential (primary) hypertension Femoral artery aneurysm, right Hyperlipidemia, unspecified Influenza B Ischemic cardiomyopathy Near syncope Nicotine dependence in remission NSVT (nonsustained ventricular tachycardia) Obesity BHARAT (obstructive sleep apnea) Peripheral vascular disease Shortness of breath T-cell lymphoma Surgical History Aortocoronary bypass status (~05/17/12) h/o left TKA History of left knee replacement History of permanent cardiac pacemaker placement History of tonsillectomy Hx of CABG Presence of biventricular implantable cardioverter-defibrillator (ICD) (04/22/12) Presence of other cardiac implants and grafts Presence of stent in coronary artery Family History Father Heart disease Cancer Prostate Brother Cancer prostate cancer Social History household members: none Smoking Status: Former smoker pack-years: 75 how long ago did patient quit smokin years ago second hand exposure: No alcohol intake: current alcohol intake frequency: holidays/special occasions on ly Alcohol type: beer substance use type: does not use caffeine: Yes Type: carbonated beverages Number of servings: 1 ROS Const Const: Negative for fatigue, weakness, fever(s), headache(s), chills, frequent falls, weight gain or weight loss Eyes Eyes: Negative for blind spots, loss of peripheral vision, transient loss of vision, blurry vision, change in vision, double vision, floaters or tunnel vision ENT ENT: Negative for headache(s), dizziness, Nosebleed/epistaxis, balance problems or neck pain Cardio Chest Pain: No Palpitations: No Edema: None Muscle aches with walking: None Resp Respiratory: Negative for SOB with activity, SOB at rest or SOB orthopnea\SOB lying down GI GI: Negative nausea, vomiting, heartburn, bloating, vomiting blood/hematemesis, bright, red blood in stools or black,tarry stools Musc Musc: Negative for muscle aches/ myalgia, muscle weakness, joint pain or balance problems Neuro Neuro: Negative for dizziness, lightheadedness, near syncope, syncope, orthostatic symptoms, frequent falls, headache(s), weakness, blurry vision or double vision Doroteo Hematologic/Lymphatic: Negative for easy bleeding or easy bruising Endo Endo: Negative for fatigue Cardiology Exam Const Appearance: cooperative and no acute distress Orientation: alert and oriented x3 Head Head: normal to inspection Ears: hearing grossly normal bilaterally Nose: external nose normal Face and Sinus: face symmetric Eyes General: appearance normal, both eyes and all related structures Eyelids: eyelids normal Conjunctivae: conjunctivae normal Pupils: PERRL and pupil size EOM: EOM intact bilaterally Neck Neck: normal visual inspection Carotids: Negative bruit Chest Chest inspection: normal inspection of the chest and normal respiratory effort Auscultation: Bilateral: Clear to Auscultation Cardio Palpation: normal PMI Rate: regular rate Rhythm: regular rhythm Heart sounds: S1 normal and S2 normal; Negative rub, gallop or murmur GI GI: normal to inspection and soft; Negative no hepatosplenomegaly Neuro General: patient alert, patient oriented x3 and CN's II-XI intact bilaterally Skin Skin: no rashes or lesions noted Extremities Pulses: Normal: Right Posterior Tibial Pulse, Left Posterior Tibial Pulse, Right Radial Pulse and Left Radial Pulse Lower Extremity Edema: None: Bilateral Psych Psychological: normal affect Supplemental Info Supplemental Information Echocardiogram 01/19/2021: Interpretation Summary The study was technically difficult. Contrast injection was performed. Segmental dysfunction with preserved ejection fraction (see wall motion). The estimated ejection fraction is 55 %. The left atrium is mildly enlarged. Trivial mitral valve insufficiency. Mild to moderate (1-2+) tricuspid valve insufficiency. Mild focal aortic valve calcification. Right ventricular systolic pressure estimated to be 26 mmHg. Diastolic function is indeterminate. ICD or pacer leads identified within the right atrium ICD or pacer leads identified within the right ventricle. Stress Test 01/19/2021: Procedure: Pharmacologic stress nuclear imaging study Indications: CAD; PCI; CABG, cardiac dysrhythmia, ICD Consent: Per the patient Procedure: The patient underwent pharmacologic (Regadenoson 0.4mg ) evaluation with a peak heart rate of 107 beats per minute (74%predicted maximal heart rate) and a peak blood pressure of 138/80 mmHg. The baseline ECG demonstrated electronic ventricular paced rhythm. The peak pharmacologic ECG demonstrated no obvious ECG changes. There was an isolated PVC in recovery. There was no complaint of chest discomfort during pharmacologic infusion or recovery. The examination was discontinued secondary to completion of protocol. Impression: 1. Pharmacologic (Regadenoson) evaluation 2. Peak pharmacologic ECG with continued electronic ventricular paced rhythm. 3. There was an isolated PVC in recovery. 4. Nuclear images pending Myocardial perfusion imaging study: Technique: The patient was injected with 14.4 millicuries of technetium 99m Cardiolite and subsequently rest SPECT Cardiolite nuclear imaging was obtained in the horizontal long, vertical long, and short axis views. The patient underwent pharmacologic (Regadenoson) evaluation with a peak heart rate of 107 beats per minute (74% percent predicted maximal heart rate) and a peak blood pressure of 138/80 mmHg. The patient was injected with 43.8 millicuries of technetium 99m Cardiolite and subsequently stress SPECT Cardiolite nuclear imaging was obtained in the horizontal long, vertical long, and short axis views. A gated Cardiolite study at peak stress was obtained. Interpretation: Rest and stress SPECT Cardiolite nuclear imaging status post realignment, normalization, and attenuation correction demonstrate relative uniform tracer uptake and myocardial perfusion appearing within normal limits. There is end systolic thickening and brightening. The gated Cardiolite study demonstrates myocardial thickening and inward wall motion. The reported LVEF is 63%. Impression: 1. Rest and stress SPECT Cardiolite nuclear imaging demonstrate relative uniform tracer uptake and myocardial perfusion appearing within normal limits. 2. The gated Cardiolite study reports an LVEF of 63%. Carotid Duplex 01/2021: Interpretation Summary Irregular calcific plaque in the proximal right internal carotid artery with less than 50% stenosis Less than 50% stenosis right external carotid artery Patent and antegrade right vertebral Irregular calcific plaque with shadowing at the proximal left internal carotid artery with greater than 70% stenosis. Less than 50% stenosis left external carotid artery Patent and antegrade left vertebral Findings suggest slight progression of disease left internal carotid artery from the previous examination of January 14, 2020 Labs: LDL Cholesterol 65 mg/dL (0-130) HDL Cholesterol 34 mg/dL (40-) L Triglycerides 154 mg/dL (-199) VLDL Cholesterol 31 mg/dL (5-40) Diagnostics: Electrocardiogram Echocardiogram Stress Test NM Stress Test Pacemaker Check Chest X-Ray Pulmonary: No Data to Display Assessment and Plan Assessment and Plan (1) Presence of biventricular implantable cardioverter-defibrillator (ICD): Status: Chronic Grant Box NP, REHABILITATION PROGRAM MANAGER-C: Patient has a biventricular implantable cardioverter-defibrillator. He did have an interrogation prior to his office visit. There were no VT/VF episodes noted. His battery longevity is less than 3 months. He will proceed with generator change with Dr. Spears. (2) NSVT (nonsustained ventricular tachycardia): Status: Chronic Grant Box NP, REHABILITATION PROGRAM MANAGER-C: Patient has a history of nonsustained ventricular tachycardia. He denies any recent symptoms or events. He will continue with his current medical therapy. (3) Atrial flutter: Status: Chronic Qualifiers: Atrial flutter type: atypical Qualified Code(s): I48.4 - Atypical atrial flutter Grant Box NP, REHABILITATION PROGRAM MANAGER-C: Patient has a history of atrial flutter. He appeared to be in a regular rhythm on exam at last office visit. He will continue amiodarone, apixaban, and carvedilol as prescribed. (4) Atherosclerotic heart disease of [place] coronary artery without angina pectoris: Status: Chronic Qualifiers: [place] vs. transplanted heart: [place] heart Qualified Code(s): I25.10 - Atherosclerotic heart disease of [place] coronary artery without angina pectoris Comment: DEL ROSARIO side to side to the diagonal and end to side of anterior descending, SVG to PL of RCA 05/20 Grant Box REHABILITATION PROGRAM MANAGER, REHABILITATION PROGRAM MANAGER-C: Patient has a history of coronary artery disease. He appears stable at this time. He denies any recent symptoms or events. His most recent stress from 01/19/2021 was negative for ischemia. He will continue with his current medications, along with aggressive risk factor and lifestyle modifications. (5) Presence of stent in coronary artery: Status: Chronic Comment: x7 CX, PL, PDA of RCA Grant Box NP, REHABILITATION PROGRAM MANAGER-C: Patient has a history of coronary artery disease with stent placement. He appears stable at this time. He denies any recent symptoms or events. His most recent stress from 01/19/2021 was negative for ischemia. He will continue with his current medications, along with aggressive risk factor and lifestyle modifications. (6) Aortocoronary bypass status: Status: Chronic Comment: CABG x3-DEL ROSARIO side to side to the diagonal and end to side of anterior descending, SVG to posterolateral of RCA 05/20 Grant Box NP, REHABILITATION PROGRAM MANAGER-C: Patient has a history of coronary artery disease with bypass surgery in 2011. He appears stable at this time. He denies any recent symptoms or events. His most recent stress from 01/19/2021 was negative for ischemia. He will continue with his current medications, along with aggressive risk factor and lifestyle modifications. (7) Carotid artery disease: Status: Chronic Qualifiers: Carotid artery disease type: unspecified Laterality: unspecified laterality Qualified Code(s): I77.9 - Disorder of arteries and arterioles, unspecified Grant Box NP, REHABILITATION PROGRAM MANAGER-C: Patient has a history of carotid artery disease. He does follow with vascular surgery for this. His most recent carotid duplex from 01/2021 demonstrated irregular calcific plaque with shadowing at the proximal left internal carotid artery with greater than 70%. He will continue with his current medical therapy. (8) Ischemic cardiomyopathy: Status: Chronic Plan - Jasmin Box REHABILITATION PROGRAM MANAGER, REHABILITATION PROGRAM MANAGER-C: Patient has a history of ischemic cardiomyopathy. His most recent echocardiogram from 01/19/2021 demonstrates an estimated ejection fraction of 55%. He appears stable at this time. He denies any recent symptoms or events. He will continue with his current medical therapy. (9) Essential (primary) hypertension: Status: Chronic Grant Box NP, REHABILITATION PROGRAM MANAGER-C: Patient has a history of hypertension. His blood pressure is well controlled at this time. He will continue with his current medical therapy, along with monitoring his blood pressures at home. (10) Hyperlipidemia, unspecified: Status: Chronic Qualifiers: Hyperlipidemia type: unspecified Qualified Code(s): E78.5 - H yperlipidemia, unspecified Grant Box NP, REHABILITATION PROGRAM MANAGER-C: Patient has a history of hyperlipidemia. His most recent lipid panel from 01/03/2021: Cholesterol 130, HDL 34, LDL 65, triglycerides 154. He will continue with atorvastatin 80 mg daily, along with aggressive risk factor and lifestyle modifications. He will obtain a lipid and liver profile to reevaluate this.
--- NOTE | 2021-07-28 11:14 | OP.PCM_ITS ---
Report of Operation Date of Procedure: 07/28/21 Description of Surgical Findings:: Diagnosis: ischemic Cardiomyopathy with NYHA Class iii. ICD for primary prevention. Device generator replacement for normal battery depletion Preoperative diagnosis is device at end of life for normal battery depletion. Postoperative diagnosis same as above. After informed consent and IV antibiotics the patient was brought to the [facility] catheterization laboratory and the skin over the device was prepped and draped in the usual sterile manner. Intermittent boluses of Versed, and fentanyl were used for sedation and analgesia as well as 1% subcutaneous lidocaine. An incision was made over the pre-existing device. Using blunt and Bovie dissection the pocket was opened and the device was removed. Careful attention was paid not to injure the pre-existing leads. The leads were removed from the device header and they were interrogated. There is normal lead function. Hemostasis was obtained. The pocket was flushed with antibiotic solution. The sponge and needle count were correct. The new device was brought to the field. The leads were placed in the appropriate position in the header and secured by the set screw. The leads and the device were then placed in the pocket. The pocket was closed with a deep layer of running 2-0 Vicryl, a superficial layer of running 4-0 Vicryl, skin with Steri-Strips which were covered with a rolled 4 x 4 and Tegaderm. Patient left the room with the device programmed to proper parameters and there were no complications. The device is a biv icd chamber [employer] generator. All lead parameters were tested and found to be functionally normal. Lead and device serial and model numbers are available in the chart documents provided by the device company cash application representative procedure summary.
== END ==
PROVIDERS: PCP Family Medicine; Referring Provider Internal Medicine Cardiovascular Disease; Visit Provider Internal Medicine Cardiovascular Disease
DX: Z45.010 Encounter for checking and testing of cardiac pacemaker pulse generator [battery] (principal); J44.9 Chronic obstructive pulmonary disease, unspecified; I11.0 Hypertensive heart disease with heart failure; I50.22 Chronic systolic (congestive) heart failure; I77.9 Disorder of arteries and arterioles, unspecified; I73.9 Peripheral vascular disease, unspecified; I47.2 Ventricular tachycardia; I48.4 Atypical atrial flutter; I25.10 Atherosclerotic heart disease of native coronary artery without angina pectoris; I25.5 Ischemic cardiomyopathy; E78.5 Hyperlipidemia, unspecified; G47.33 Obstructive sleep apnea (adult) (pediatric); E66.9 Obesity, unspecified; Z95.810 Presence of automatic (implantable) cardiac defibrillator; Z95.1 Presence of aortocoronary bypass graft; Z95.5 Presence of coronary angioplasty implant and graft; Z79.899 Other long term (current) drug therapy; Z86.16 Personal history of COVID-19; Z87.891 Personal history of nicotine dependence
CPT/HCPCS: 33264; 36415; 80048; 80061; 80076; 81001; 85027; 85610; 87426; 93005; 93641; 99152; 99153; J7050

== ENCOUNTER → 2021-11-09 | Outpatient (CLI) | payer MEDICARE, OTHER, SELFPAY | END | disposition home or self-care (01) | LOC: LABSPEC 08:59 | PROVIDERS: PCP Family Medicine; Referring Provider Nurse Practitioner Acute Care; Visit Provider Nurse Practitioner Acute Care | DX: J44.9 Chronic obstructive pulmonary disease, unspecified (principal) | CPT/HCPCS: 87070; 87077; 87205 ==

== ENCOUNTER → 2021-12-13 | Outpatient (CLI) | payer MEDICARE, OTHER, SELFPAY ==
--- NOTE | 2021-12-13 09:55 | RAD_ITS ---
STUDY: X-RAY CHEST REASON FOR EXAM: Male, 76 years old. Technologist Notes SOB, COPD, OFF BALANCE, PACEMAKER Amiodarone TECHNIQUE: XR Chest 2 Views COMPARISON: Feb 15 2021 6:04am FINDINGS: There is no demonstrated pleural abnormality. There are multiple median sternotomy wires. There is a left sided pacemaker batterypack. Normal size heart. Normal mediastinum and debbie. Normal visualized pulmonary arteries. There is atherosclerotic calcification of the aortic arch with tortuosity. There are diffuse degenerative changes of the visualized thoracic spine. There is degenerative osteoarthritis of the bilateral shoulders. There is no demonstrated abnormality of the visualized soft tissue structures of the upper abdomen. RAD/Chest PA and Lateral IMPRESSION: There are no acute findings. Electronically Signed: Jevon Camacho MD at 16:54 EDT ,
[2021-12-13 10:38] LABS: Absolute Lymphocyte Count 0.94 X10^3/uL (0.83-4.51); Absolute Neutrophil Count 6.5 X10^3/uL (2.0-7.7); Basophil# 0.05 X10^3/uL; Basophil% 0.6 % (0-1); Eosinophil# 0.28 X10^3/uL; Eosinophils% 3.2 % (0-5); Hematocrit 41.7 % (40-54); Hemoglobin 13.9 g/dL (13.0-16.5); Lymphocyte # 0.94 X10^3/ul (0.83-4.51); Lymphocyte % 10.7 % (19-41); Mean Corp Hgb Conc 33.3 g/dL (32-36); Mean Corpuscular Hgb 31.1 pg (27.0-32.0); Mean Corpuscular Volume 93.3 fL (80-94); Mean Platelet Vol. 10.8 fl (6.2-12.0); Monocyte# 0.96 X10^3/uL; Monocyte% 10.9 % (0-10); NRBC Flagged by Analyzer 0 % (0-5); Neutrophil # 6.47 X10^3/uL (2.7-7.7); Neutrophil % 73.8 % (47-70); Platelet Count 192 K/mm3 (150-450); RBC Distribution Width CV 13.5 % (11.6-14.6); RBC Distribution Width SD 46.1 fl (35.1-43.9); Red Blood Count 4.47 M/mm3 (4.6-6.2); White Blood Count 8.8 K/mm3 (4.4-11.0)
[2021-12-13 11:14] LABS: Anion Gap 4 (5-15); BUN 20 mg/dL (7-18); BUN/Creat Ratio 17.1 RATIO (10-20); Calcium,Total 8.7 mg/dL (8.5-10.1); Chloride 109 mmol/L (98-107); Creatinine, Serum 1.17 mg/dL (0.70-1.30); EST Glomerular Filtration Rate 64 mL/min (>60); Est Glom Filt Rate - Afr Amer 78 mL/min (>60); Glucose 136 mg/dL (74-106); Potassium 4.4 mmol/L (3.5-5.1); Sodium Level 141 mmol/L (136-145); T4 Free Direct 1.33 ng/dL (0.76-1.46); Thyroid Stim Hormone (TSH) 2.77 uIU/mL (0.358-3.74)
== END | disposition home or self-care (01) ==
PROVIDERS: PCP Family Medicine; Referring Provider Nurse Practitioner Gerontology; Visit Provider Nurse Practitioner Gerontology
DX: R42 Dizziness and giddiness (principal); Z79.899 Other long term (current) drug therapy
CPT/HCPCS: 36415; 71046; 80048; 83735; 84439; 84443; 85025

== ENCOUNTER → 2021-12-23 | Outpatient (CLI) | payer MEDICARE, OTHER, SELFPAY ==
--- NOTE | 2021-12-24 07:29 | PFT ---
INTRODUCTION: The patient is a 76-year-old male that presents for pulmonary function studies secondary to a diagnosis of long-term drug therapy. Respiratory therapy reported good patient effort. Bronchodilators were used during testing. INTERPRETATION: Forced expiration spirometry demonstrates the presence of a moderate large airways obstructive ventilatory defect. There was no significant response to aerosolized bronchodilators. Spirograms are of good quality and plateau gradually indicating slow emptying of the lungs. Body plethysmography was performed and revealed a decreased TLC to 4.64 L, 82% of predicted, indicative of a mild restrictive ventilatory impairment. Diffusing capacity by single breath CO is reduced at 51% of predicted. IMPRESSION: Irreversible mild mixed ventilatory defect with moderate reduction in diffusing capacity. When compared to PFTs from 2018, there has been an 18% reduction in TLC along with a 41% reduction in DLCO.
== END | disposition home or self-care (01) ==
LOC: PSN 08:07
PROVIDERS: PCP Family Medicine; Referring Provider Nurse Practitioner Gerontology; Visit Provider Nurse Practitioner Gerontology
DX: Z79.899 Other long term (current) drug therapy (principal)
CPT/HCPCS: 94060; 94726; 94729

== ENCOUNTER → 2022-01-02 | Outpatient (CLI) | payer MEDICARE, OTHER, SELFPAY ==
--- NOTE | 2022-01-02 09:52 | CDU_ITS ---
Reason For Study: Dizziness Rt. Velocities/BP Lt. Velocities/BP Prox CCA 52.5/12.1 cm/sec. Prox CCA 59.7/14.6 cm/sec. Mid CCA 50.9/13.5 cm/sec. Mid CCA 48.7/12.4 cm/sec. Dist CCA 46.5/13.5 cm/sec. Dist CCA 46.5/10.2 cm/sec. Prox ICA 81.7/23.4 cm/sec. Prox ICA 328.5/101.9 cm/sec. Mid ICA 72.9/19 cm/sec. Mid ICA 82/18.2 cm/sec. Dist ICA 67.4/17.9 cm/sec. Dist ICA 68.2/16 cm/sec. Rt. ICA/CCA = 1.61. Lt. ICA/CCA = 6.74. Prox ECA 75/9.1 cm/sec. Prox ECA 95.9/10.2 cm/sec. Rt. Vert. 41/10.2 cm/sec. Lt. Vert. 41.9/10.7 cm/sec. Right Extracranial There is intimal thickening but no significant atherosclerotic plaque noted in the right common carotid artery. There is heterogeneous, irregular atherosclerotic plaque noted in the right internal carotid artery. There is intimal thickening but no significant atherosclerotic plaque noted in the right external carotid artery. Antegrade flow is noted in the right vertebral artery. Left Extracranial There is homogeneous, smooth atherosclerotic plaque noted in the left common carotid artery. There is heterogeneous, irregular atherosclerotic plaque noted in the left internal carotid artery. There is intimal thickening but no significant atherosclerotic plaque noted in the left external carotid artery. Antegrade flow is noted in the left vertebral artery. Procedure Carotid Duplex 01200. This is a Carotid Duplex examination using B-mode, color flow and specral Doppler. Exam performed in department. VL/Carotid Duplex Ultrasound Interpretation Summary Minimal plaque at the proximal right internal carotid artery with less than 50% stenosis Less than 50% stenosis right external carotid artery Irregular calcific plaque with shadowing at the proximal left internal carotid artery with greater than 70% stenosis. Less than 50% stenosis left external carotid artery Patent antegrade vertebral arteries bilaterally Ordering Physician: Jasmin Box Referring Physician: Fito Velez Performed By: [place] RVT
== END | disposition home or self-care (01) ==
LOC: CVS 09:50
PROVIDERS: PCP Family Medicine; Referring Provider Nurse Practitioner Gerontology; Visit Provider Nurse Practitioner Gerontology
DX: R42 Dizziness and giddiness (principal)
CPT/HCPCS: 93880

== ENCOUNTER → 2022-05-05 | Outpatient (CLI) | payer MEDICARE, OTHER, SELFPAY ==
[2022-05-05 10:28] LABS: Absolute Lymphocyte Count 1.16 X10^3/uL (0.83-4.51); Absolute Neutrophil Count 6.8 X10^3/uL (2.0-7.7); Basophil# 0.08 X10^3/uL; Basophil% 0.9 % (0-1); Eosinophil# 0.31 X10^3/uL; Eosinophils% 3.4 % (0-5); Hematocrit 40.5 % (40-54); Lymphocyte # 1.16 X10^3/ul (0.83-4.51); Lymphocyte % 12.5 % (19-41); Mean Corp Hgb Conc 34.6 g/dL (32-36); Mean Corpuscular Hgb 31.7 pg (27.0-32.0); Mean Corpuscular Volume 91.6 fL (80-94); Mean Platelet Vol. 10.1 fl (6.2-12.0); Monocyte# 0.85 X10^3/uL; Monocyte% 9.2 % (0-10); NRBC Flagged by Analyzer 0 % (0-5); Neutrophil # 6.79 X10^3/uL (2.7-7.7); Neutrophil % 73.4 % (47-70); Platelet Count 200 K/mm3 (150-450); RBC Distribution Width CV 13.2 % (11.6-14.6); Red Blood Count 4.42 M/mm3 (4.6-6.2); White Blood Count 9.3 K/mm3 (4.4-11.0)
[2022-05-05 10:56] LABS: BNP,B-Type NATRIURETIC PEPTIDE 237.7 pg/mL (0-100)
[2022-05-05 10:57] LABS: AST(SGOT) 11 U/L (15-37); Alanine Aminotransfer ALT/SGPT 25 U/L (16-61); Albumin, Serum 3.2 g/dL (3.2-5.0); Alkaline Phosphatase 112 U/L (45-117); Anion Gap 4 (5-15); BUN 21 mg/dL (7-18); BUN/Creat Ratio 17.5 RATIO (10-20); Bilirubin, Direct 0.27 mg/dL (0.00-0.30); Calcium,Total 8.7 mg/dL (8.5-10.1); Chloride 109 mmol/L (98-107); Cholesterol 126 mg/dL (200); EST Glomerular Filtration Rate 62 mL/min (>60); Est Glom Filt Rate - Afr Amer 75 mL/min (>60); Globulin 3.7 g/dL (2.2-4.2); Glucose 140 mg/dL (74-106); High Density Lipoprotein 42 mg/dL; Potassium 4.3 mmol/L (3.5-5.1); Protein, Total 6.9 g/dL (6.4-8.2); Sodium Level 141 mmol/L (136-145); Triglycerides 83 mg/dL; Very Low Density Lipoprotein 17 mg/dL (5-40)
== END | disposition home or self-care (01) ==
LOC: LAB 09:33
PROVIDERS: Nurse Practitioner Gerontology; PCP Family Medicine; Visit Provider Nurse Practitioner Family
DX: E78.5 Hyperlipidemia, unspecified (principal); R06.09 Other forms of dyspnea
CPT/HCPCS: 36415; 80048; 80061; 80076; 83880; 85025

== ENCOUNTER 2022-06-17 07:22 | Emergency (ER) | payer MEDICARE, OTHER, SELFPAY ==
[2022-06-17] VITALS (7 sets, daily range): BP systolic 112–128; BP diastolic 52–68; PULSE 71–81; RESP 16–36; TEMP 35.8; O2SAT 91–96; BMI 32.1
--- NOTE | 2022-06-17 07:40 | EKG12_ITS ---
Test Reason : SOB Blood Pressure : / mmHG Vent. Rate : 068 BPM Atrial Rate : 068 BPM P-R Int : 000 ms QRS Dur : 180 ms QT Int : 526 ms P-R-T Axes : 074 -86 096 degrees QTc Int : 559 ms Ventricular-paced rhythm Biventricular pacemaker detected Abnormal ECG Confirmed by MARCIO MEYER, SHARIF ([id number]), news videotape editor WHITNEY SUÁREZ ([id number]) on 06/20/2022 11:19:41 AM Referred By: Confirmed By:SHARIF BUCKLEY MD
--- NOTE | 2022-06-17 07:41 | ED.VIS.DYS ---
HPI History of Present Illness Chief Complaint: Shortness of Breath Informant: patient Narrative Narrative: Patient presents with about 3 days of cough increased wheezing. He is not bringing up any sputum. He has had subjective fevers but none measured. No chest pain. No weight gain. He has had some muscle aches. He has not yet gotten his flu shot this year. He does plan to do that. He is on oxygen at night but not during the day. He has a history of COPD. He is on twice a day steroid inhaler. He has a rescue inhaler but has not tried it. He is also on Eliquis and has been taking it twice a day. Nothing really makes his symptoms better or worse but he has not tried a whole lot. His appetite is also down but he is able to eat and drink. No nausea vomiting or diarrhea. [facility] Medical History Allergic rhinitis Atherosclerotic heart disease of ute coronary artery without angina pectoris Atrial flutter CAD (coronary artery disease) Carotid artery disease COPD (chronic obstructive pulmonary disease) COVID-19 Essential (primary) hypertension Femoral artery aneurysm, right Hyperlipidemia, unspecified Influenza B Ischemic cardiomyopathy Near syncope Nicotine dependence in remission NSVT (nonsustained ventricular tachycardia) Obesity BHARAT (obstructive sleep apnea) Peripheral vascular disease Shortness of breath T-cell lymphoma Home Medications ramipril 10 mg capsule 10 mg PO BID blood pressure 12/25/13 [History Last Taken 02/13/21] fluticasone propionate 50 mcg/actuation nasal spray,suspension (Flonase Allergy Relief) 50 mcg intranasal QDAY PRN Congestion 06/25/17 [History Last Taken 02/13/21] atorvastatin 80 mg tablet 80 mg PO QHS cholesterol 08/14/17 [History Last Taken 02/13/21] ipratropium 0.5 mg-albuterol 3 mg (2.5 mg base)/3 mL nebulization soln 3 ml inhalation Q4HWA.RT PRN Sob &/Or Wheezing 09/03/18 [History Last Taken 05/06/20] isosorbide mononitrate 30 mg tablet,extended release 24 hr 30 mg PO BID blood pressure 10/28/19 [History Last Taken 02/13/21] montelukast 10 mg tablet 10 mg PO DAILY allergy 02/17/20 [History Last Taken 02/13/21] amlodipine 10 mg tablet 10 mg PO DAILY blood pressure 05/07/20 [History Last Taken 02/13/21] metformin 500 mg tablet 500 mg PO BID 06/28/20 [History Last Taken 02/13/21] nitroglycerin 0.4 mg sublingual tablet 0.4 mg sublingual Q5M PRN Chest Pain #25 tabs 01/03/21 [Rx Last Taken Unknown] acetaminophen 500 mg tablet (Tylenol Extra Strength) 1,000 mg PO Q6H PRN Pain 02/14/21 [History Last Taken 02/14/21] albuterol sulfate 90 mcg/actuation aerosol inhaler 2 puff inhalation Q4H PRN shortness of breath or wheezing #8.5 grams 02/22/21 [Rx Last Taken Unknown] apixaban 5 mg tablet (Eliquis) 5 mg PO BID #180 tabs 11/21/21 [Rx Last Taken Unknown] budesonide-formoterol HFA 160 mcg-4.5 mcg/actuation aerosol inhaler (Symbicort) 2 puff inhalation Q12H #3 device 03/14/22 [Rx Last Taken Unknown] carvedilol 12.5 mg tablet 6.25 mg PO BID 05/05/22 [History Last Taken Unknown] albuterol sulfate 2.5 mg/3 mL (0.083 %) solution for nebulization 2.5 mg (3 mL) inhalation Q4H PRN #25 vials 06/17/22 [Rx Last Taken Unknown] doxycycline monohydrate 100 mg capsule 100 mg PO BID #20 caps 06/17/22 [Rx Last Taken Unknown] prednisone 20 mg tablet 60 mg PO DAILY #15 tabs 06/17/22 [Rx Last Taken Unknown] Allergy/AdvReac Type Severity Reaction Status Date / Time ciprofloxacin [From Cipro] Allergy Swelling Verified 06/17/22 07:26 ciprofloxacin HCl Allergy hand Verified 06/17/22 07:26 [From Cipro] Swelling Sulfa (Sulfonamide Allergy Unknown Verified 06/17/22 07:26 Antibiotics) Family History Father Heart disease Cancer Prostate Brother Cancer prostate cancer Surgical History Aortocoronary bypass status (~05/17/12) h/o left TKA History of left knee replacement History of permanent cardiac pacemaker placement History of tonsillectomy Hx of CABG Presence of biventricular implantable cardioverter-defibrillator (ICD) (04/22/12) Presence of other cardiac implants and grafts Presence of stent in coronary artery Social History household members: none Smoking Status: Former smoker pack-years: 75 how long ago did patient quit smokin years ago second hand exposure: No alcohol intake: current alcohol intake frequency: holidays/special occasions only Alcohol type: beer substance use type: does not use caffeine: Yes Type: carbonated beverages Number of servings: 1 ROS ROS ED Constitutional Constitutional ED: Reports chills and fever(s) Eyes Eyes: Denies change in vision ENT ENT ED: Reports rhinorrhea; Denies sore throat Cardiovascular Cardiovascular: Denies chest pain, palpitations or racing heartbeat Respiratory/Chest Respiratory/Chest: Reports cough and dyspnea; Denies sputum Gastrointestinal Gastrointestinal: Denies abdominal pain, diarrhea, nausea or vomiting Genitourinary Genitourinary ED: Denies dysuria Musculoskeletal Musculoskeletal: Reports myalgias Integumentary Denies rash Neurologic Neurologic: Denies headache(s) Endocrine Endocrinology: Denies polydipsia or polyuria Hematologic/Lymphatic Hematologic/Lymphatic: Denies lymphadenopathy Allergic/Immunologic Allergic/Immunologic ED: Denies urticaria EXAM Physical Exam Const Vital Signs: 06/17/22 07:23 06/17/22 07:46 06/17/22 07:51 Temperature 96.4 F L 96.4 F L Temperature Source Temporal Temporal Pulse Rate 72 72 Respiratory Rate 36 H 36 H 18 Respiratory Depth Respiratory Pattern Blood Pressure 112/68 112/68 Blood Pressure Mean 82 82 Pulse Ox 92 92 Oxygen Delivery Method Room Air Room Air 06/17/22 07:51 06/17/22 07:51 06/17/22 08:10 Temperature Temperature Source Pulse Rate Respiratory Rate 18 Respiratory Depth Normal Respiratory Pattern Normal Blood Pressure Blood Pressure Mean Pulse Ox 93 93 Oxygen Delivery Method Room Air Room Air Room Air Positive well nourished and well developed Constitutional Narrative: Patient is breathing comfortably in bed. Sats are 94% on room air while lying in bed. General Appearance ED: well developed and NAD HEENT Reports moist mucous membranes Eyes General Eye ED: Negative for pale conjunctiva or scleral icterus Neck no meningeal signs and no JVD Resp normal respiratory effort Resp Narrative: Respiratory effort seems normal. But he does have a hard dry cough when he takes a deep breath. He has clear expiratory wheezing throughout. I do not hear basilar rales. I do not hear any focal rhonchi. Auscultation: wheezes; Negative for rales or rhonchi Cardio regular rate and regular rhythm GI non-tender and non-distended Back/Spine no CVA tenderness Extremity Extremity Narrative: Patient has more edema on the right than the left. He says that is normal ever since he had surgery in that leg. That is not new or different in any way. Neuro oriented x3 Psych mental status grossly normal Skin no wounds MDM MDM MDM Narrative Medical decision making narrative: Chest x-ray shows no acute process. CBC is overall unremarkable. Electrolytes show mild bump in his creatinine. Patient is rechecked. His sats are 95% on room air. He is moving better air. He still has some wheezing so I will give him a new treatment. I discussed options with him. He would really prefer to go home. He has oxygen at home if needed. We will get him started on steroids. I will write for some albuterol for his nebulizer. We will start him on doxycycline with him having fevers and COPD exacerbation. He has negative COVID and influenza. We discussed reasons to return. Lab Data Attestation: I reviewed the patient's lab results. Labs: Laboratory Results - last 24 hr 06/17/22 06/17/22 07:45 07:45 WBC 10.9 RBC 4.44 L Hgb 13.6 Hct 41.6 MCV 93.7 MCH 30.6 MCHC 32.7 RDW Std Deviation 45.7 H RDW Coeff of Kip 13.4 Plt Count 170 MPV 10.0 Immature Gran % (Auto) 0.600 Neut % (Auto) 82.8 H Lymph % (Auto) 3.8 L [place] % (Auto) 10.2 H Eos % (Auto) 2.0 Baso % (Auto) 0.6 Absolute Neuts (auto) 9.0 H Absolute Lymphs (auto) 0.41 L Nucleated RBC % 0 Sodium 139 Potassium 4.0 Chloride 109 H Carbon Dioxide 26.0 Anion Gap 4 L BUN 23 H Creatinine 1.36 H Estim Creat Clear Calc 41.85 Est GFR (MDRD) Af Amer 65 Est GFR (MDRD) Non-Af 54 L BUN/Creatinine Ratio 16.9 Glucose 142 H Calcium 8.5 Radiography Diagnostic Testing: Clinical Impression(s) from Imaging Studies Chest X-Ray 06/17/22 08:00 IMPRESSION: Prominent interstitial markings bilaterally essentially unchanged prior exam which could be chronic. No new infiltrate is seen. Electronically Signed: John Mendez MD at 8:19 EST , 2 view chest x-ray looked at by me and read by radiology shows chronic changes but no acute infiltrate. Discharge Plan Triage Chief Complaint: Shortness of Breath ED Provider: Cruz Whitlock Dx/Rx/DC Orders Clinical Impression: Asthma exacerbation in COPD Instructions: ED COPD Flare Prescriptions: New albuterol sulfate 2.5 mg /3 mL (0.083 %) solution for nebulization 2.5 mg inhalation Q4H PRN Qty: 25 0RF Rx Instructions: Use q4 hours and PRN for wheezing prednisone 20 mg tablet 60 mg PO DAILY Qty: 15 0RF doxycycline monohydrate 100 mg capsule 100 mg PO BID Qty: 20 0RF No Action fluticasone propionate [Flonase Allergy Relief] 50 mcg/actuation spray,suspension 50 mcg INTRANASAL QDAY PRN (Reason: Congestion) ipratropium-albuterol 0.5 mg-3 mg(2.5 mg base)/3 mL solution for nebulization 3 ml INHALATION Q4HWA.RT PRN (Reason: Sob &/Or Wheezing) isosorbide mononitrate 30 mg tablet extended release 24 hr 30 mg PO BID montelukast 10 mg tablet 10 mg PO DAILY nitroglycerin 0.4 mg tablet, sublingual 0.4 mg SUBLINGUAL Q5M PRN (Reason: Chest Pain) Qty: 25 3RF albuterol sulfate 90 mcg/actuation HFA aerosol inhaler 2 puff inhalation Q4H PRN (Reason: shortness of breath or wheezing) Qty: 8.5 6RF Rx Instructions: administer with spacer metformin 500 mg tablet 500 mg PO BID carvedilol 12.5 mg tablet 6.25 mg PO BID ramipril 10 MG capsule 10 mg PO BID atorvastatin 80 MG tablet 80 mg PO QHS amlodipine 10 MG tablet 10 mg PO DAILY acetaminophen [Tylenol Extra Strength] 500 mg Tablet 1,000 mg PO Q6H PRN (Reason: Pain) Eliquis 5 mg tablet 5 mg PO BID Qty: 180 3RF budesonide-formoterol [Symbicort] 160-4.5 mcg/actuation HFA aerosol inhaler 2 puff INHALATION Q12H Qty: 3 3RF Primary Care Provider: Fito Velez Referrals: Fito Velez MD [Primary Care Provider] - 3-5 Days Disposition Disposition: Home, Self Care
[2022-06-17] MEDS: MethylPREDNISolone 125 MG/2 ML Vial IV (07:51)
[2022-06-17] MEDS: Ipratropium/Albuterol Sulfate 3 ML AMPUL.NEB INHALATION ×2 (07:51→08:47)
[2022-06-17] MEDS: Albuterol 2.5 MG/3 ML VIAL.NEB. INHALATION (07:51)
[2022-06-17 07:54] LABS: Absolute Lymphocyte Count 0.41 X10^3/uL (0.83-4.51); Basophil# 0.06 X10^3/uL; Basophil% 0.6 % (0-1); Eosinophil# 0.22 X10^3/uL; Hematocrit 41.6 % (40-54); Hemoglobin 13.6 g/dL (13.0-16.5); Lymphocyte # 0.41 X10^3/ul (0.83-4.51); Lymphocyte % 3.8 % (19-41); Mean Corp Hgb Conc 32.7 g/dL (32-36); Mean Corpuscular Hgb 30.6 pg (27.0-32.0); Mean Corpuscular Volume 93.7 fL (80-94); Monocyte# 1.11 X10^3/uL; Monocyte% 10.2 % (0-10); NRBC Flagged by Analyzer 0 % (0-5); Neutrophil # 8.99 X10^3/uL (2.7-7.7); Neutrophil % 82.8 % (47-70); POSITIVE DIFFERENTIAL YES; Platelet Count 170 K/mm3 (150-450); RBC Distribution Width CV 13.4 % (11.6-14.6); RBC Distribution Width SD 45.7 fl (35.1-43.9); Red Blood Count 4.44 M/mm3 (4.6-6.2); White Blood Count 10.9 K/mm3 (4.4-11.0)
[2022-06-17 07:55] LABS: Differential Indicated SCAN CRITERIA MET
--- NOTE | 2022-06-17 08:00 | RAD_ITS ---
INDICATION: cough EXAMINATION/TECHNIQUE: X-RAY - XR Chest 2 Views COMPARISON: 12/13/2021. FINDINGS: LINES/DEVICES: Dual-chamber left-sided cardiac pacer device in stable position. LUNGS: Slightly prominent interstitial markings in the lower lungs for the most part unchanged prior examination. No new infiltrate is seen. No evidence of pleural effusions. MEDIASTINUM AND CARDIOVASCULAR STRUCTURES: Borderline cardiac silhouette is status post median sternotomy and CABG. BONES AND SOFT TISSUES: Stable soft tissues and osseous structures. RAD/Chest PA and Lateral IMPRESSION: Prominent interstitial markings bilaterally essentially unchanged prior exam which could be chronic. No new infiltrate is seen. Electronically Signed: John Mendez MD at 8:19 EST ,
[2022-06-17 08:14] LABS: Anion Gap 4 (5-15); BUN 23 mg/dL (7-18); BUN/Creat Ratio 16.9 RATIO (10-20); Calcium,Total 8.5 mg/dL (8.5-10.1); Chloride 109 mmol/L (98-107); Creatinine, Serum 1.36 mg/dL (0.70-1.30); EST Glomerular Filtration Rate 54 mL/min (>60); Est Glom Filt Rate - Afr Amer 65 mL/min (>60); Estimated Creatinine Clearance 41.85 ml/min; Glucose 142 mg/dL (74-106); Sodium Level 139 mmol/L (136-145)
== END 2022-06-17 08:58 | disposition home or self-care (01) ==
PROVIDERS: Emergency Provider Emergency Medicine; PCP Family Medicine; Visit Provider Emergency Medicine
DX: J44.1 Chronic obstructive pulmonary disease with (acute) exacerbation (principal); M79.10 Myalgia, unspecified site; E78.5 Hyperlipidemia, unspecified; I25.5 Ischemic cardiomyopathy; R50.9 Fever, unspecified; Z20.822 Contact with and (suspected) exposure to COVID-19; I25.10 Atherosclerotic heart disease of native coronary artery without angina pectoris; I10 Essential (primary) hypertension; G47.33 Obstructive sleep apnea (adult) (pediatric); E66.9 Obesity, unspecified; Z79.51 Long term (current) use of inhaled steroids; Z79.01 Long term (current) use of anticoagulants; Z79.899 Other long term (current) drug therapy; Z87.891 Personal history of nicotine dependence
CPT/HCPCS: 71046; 80048; 85025; 87428; 93005; 94640; 96374; 99251; 99284; A4216; G0463

== ENCOUNTER 2022-07-19 12:16 | Emergency (ER) | payer MEDICARE, OTHER, SELFPAY ==
[2022-07-19 12:18] VITALS: BP 129/66; PULSE 66; RESP 18; TEMP 36.6; O2SAT 95; BMI 32.5
--- NOTE | 2022-07-19 12:29 | CT_ITS ---
STUDY: CT ABDOMEN AND PELVIS WITH CONTRAST REASON FOR EXAM: Male, 76 years old. Blunt trauma, anticoagulant, right upper quadrant pain. RADIATION DOSAGE (If Supplied By Facility): CTDIvol = ( 12.61 ) mGy, DLP = ( 929.25 ) mGycm TECHNIQUE: Transaxial images were obtained from the dome of the diaphragm to the symphysis pubis without oral contrast. IV 75mL [id number]-[id number] was administered. Sagittal and coronal images were reconstructed. Individualized dose optimization techniques were used for this CT. COMPARISON: None. FINDINGS: Mild increased linear markings at the lung bases suggestive of linear atelectasis and/or scarring. Coronary artery calcification. A dual-chamber pacemaker is seen. There is a 1.1 cm x 0.9 cm cyst in the left lobe of liver. There are multiple gallstones. There are multiple benign calcified granulomata of the spleen. There is diffuse atrophy of the pancreas. Normal bilateral adrenal glands. Normal right kidney. Normal left kidney. Normal visualized stomach. Normal small intestine. Normal colon. The appendix is visualized and appears normal. There is diffuse atherosclerotic calcification of the abdominal aorta, without a demonstrated aneurysm. Normal inferior vena cava. Normal retroperitoneum. Normal urinary bladder. There is enlargement of the prostate gland. The prostate measures 4.3 cm x 5.3 cm. Central calcifications are seen. Normal abdominal wall. There are diffuse degenerative changes of the visualized lumbar spine. Straightening of the normal lumbar lordosis. CT/Abdomen/Pelvis W IV Cont ONLY IMPRESSION: Multiple gallstones. Pancreatic atrophy. Mild increased markings at the lung bases suggestive of atelectasis and/or scarring. Electronically Signed: Ramone Mcmahon MD at 13:39 EST ,
--- NOTE | 2022-07-19 12:31 | ED.VIS.FALL ---
HPI HPI - Fall History of Present Illness Chief Complaint: Fall Detail of Chief Complaint: Mechanical fall with injury to right hand, anterior right lower chest and R Informant: patient and spouse/S.O. Occured/Mechanism Occurred: Today (Clinical fall yet today and yesterday.) Mechanism/Context: Yes same level fall and Yes trip Narrative: Patient states he was walking and tripped. He states he did not hit his head. He denies neck pain. He denies paresthesia, anesthesia or motor weakness. Pain/Injury Location: Residents Pain Location: chest (Anterior right lower ribs) and abdomen (Right upper quadrant) Quality of Pain: Dull and Aching Current Severity: Mild Maximum Severity: Severe Worsened by: Movement, deep breathing, lying down Relieved by: Not Associated Symptoms Associated Symptoms: Positive for - (Patient denies pain referred to the right trapezius area); Negative for Parasthesias, Weakness, Loss of function, Inability to ambulate, Loss of consciousness or Amnesia Length of loss of consciousness: Not applicable Narrative Narrative: Patient is a 76-year-old male with multiple medical problems which include pulmonary, cardiac, type 2 diabetes who presents after mechanical fall. He hit his anterior right chest against concrete. He complains of pain right lower rib cage and right upper quadrant. He was unaware that there is a bruise noted the right upper quadrant. He states he has pain with breathing, movement and when I palpated his abdomen. He denies head trauma. [place] double vision, blurred vision loss of vision. Denies ringing in ears or decreased hearing. He denies being dazed. He denies neck pain, paresthesia, anesthesia or motor weakness. He denies renal dysfunction. His most recent creatinine is 1.36 and was obtained June 2022. He does have history of ischemic cardiomyopathy with a JENNIFER and pacemaker. Tetanus Immunization: 5-10 years Prior similar symptoms: Yes Recent Illness/Hospitalization: No PFSH [facility] Medical History Allergic rhinitis Atherosclerotic heart disease of [place] coronary artery without angina pectoris Atrial flutter CAD (coronary artery disease) Carotid artery disease COPD (chronic obstructive pulmonary disease) COVID-19 Essential (primary) hypertension Femoral artery aneurysm, right Hyperlipidemia, unspecified Influenza B Ischemic cardiomyopathy Near syncope Nicotine dependence in remission NSVT (nonsustained ventricular tachycardia) Obesity BHARAT (obstructive sleep apnea) Peripheral vascular disease Shortness of breath T-cell lymphoma Home Medications ramipril 10 mg capsule 10 mg PO BID blood pressure 12/25/13 [History Last Taken 02/13/21] fluticasone propionate 50 mcg/actuation nasal spray,suspension (Flonase Allergy Relief) 50 mcg intranasal QDAY PRN Congestion 06/25/17 [History Last Taken 02/13/21] atorvastatin 80 mg tablet 80 mg PO QHS cholesterol 08/14/17 [History Last Taken 02/13/21] ipratropium 0.5 mg-albuterol 3 mg (2.5 mg base)/3 mL nebulization soln 3 ml inhalation Q4HWA.RT PRN Sob &/Or Wheezing 09/03/18 [History Last Taken 05/06/20] isosorbide mononitrate 30 mg tablet,extended release 24 hr 30 mg PO BID blood pressure 10/28/19 [History Last Taken 02/13/21] montelukast 10 mg tablet 10 mg PO DAILY allergy 02/17/20 [History Last Taken 02/13/21] amlodipine 10 mg tablet 10 mg PO DAILY blood pressure 05/07/20 [History Last Taken 02/13/21] metformin 500 mg tablet 500 mg PO BID 06/28/20 [History Last Taken 02/13/21] nitroglycerin 0.4 mg sublingual tablet 0.4 mg sublingual Q5M PRN Chest Pain #25 tabs 01/03/21 [Rx Last Taken Unknown] acetaminophen 500 mg tablet (Tylenol Extra Strength) 1,000 mg PO Q6H PRN Pain 02/14/21 [History Last Taken 02/14/21] albuterol sulfate 90 mcg/actuation aerosol inhaler 2 puff inhalation Q4H PRN shortness of breath or wheezing #8.5 grams 02/22/21 [Rx Last Taken Unknown] apixaban 5 mg tablet (Eliquis) 5 mg PO BID #180 tabs 11/21/21 [Rx Last Taken Unknown] budesonide-formoterol HFA 160 mcg-4.5 mcg/actuation aerosol inhaler (Symbicort) 2 puff inhalation Q12H #3 device 03/14/22 [Rx Last Taken Unknown] carvedilol 12.5 mg tablet 6.25 mg PO BID 05/05/22 [History Last Taken Unknown] albuterol sulfate 2.5 mg/3 mL (0.083 %) solution for nebulization 2.5 mg (3 mL) inhalation Q4H PRN #25 vials 06/17/22 [Rx Last Taken Unknown] doxycycline monohydrate 100 mg capsule 100 mg PO BID #20 caps 06/17/22 [Rx Last Taken Unknown] prednisone 20 mg tablet 60 mg PO DAILY #15 tabs 06/17/22 [Rx Last Taken Unknown] oxycodone-acetaminophen 5 mg-325 mg tablet 1 tab PO Q6H PRN PRN Pain 3 days #12 TABLETS 07/19/22 [Rx Last Taken Unknown] Allergy/AdvReac Type Severity Reaction Status Date / Time ciprofloxacin [From Cipro] Allergy Swelling Verified 07/19/22 12:18 ciprofloxacin HCl Allergy hand Verified 07/19/22 12:18 [From Cipro] Swelling Sulfa (Sulfonamide Allergy Unknown Verified 07/19/22 12:18 Antibiotics) Family History Father Heart disease Cancer Prostate Brother Cancer prostate cancer Surgical History Aortocoronary bypass status (~05/17/12) h/o left TKA History of left knee replacement History of permanent cardiac pacemaker placement History of tonsillectomy Hx of CABG Presence of biventricular implantable cardioverter-defibrillator (ICD) (04/22/12) Presence of other cardiac implants and grafts Presence of stent in coronary artery Social History household members: none Smoking Status: Former smoker pack-years: 75 how long ago did patient quit smokin years ago second hand exposure: No alcohol intake: current alcohol intake frequency: holidays/special occasions only Alcohol type: beer substance use type: does not use caffeine: Yes Type: carbonated beverages Number of servings: 1 ROS ROS ED Constitutional Constitutional ED: Denies chills, fever(s), subjective, sweats or weight loss Eyes Eyes: Denies blurry vision, change in vision or diplopia ENT ENT ED: Denies ear pain, rhinorrhea or sore throat Cardiovascular Cardiovascular: Reports chest pain; Denies orthopnea, palpitations, paroxysmal nocturnal dyspnea or racing heartbeat Respiratory/Chest Respiratory/Chest: Reports dyspnea; Denies cough, dyspnea on exertion, orthopnea, paroxysmal nocturnal dyspnea or sputum Gastrointestinal Gastrointestinal: Reports abdominal pain; Denies constipation, diarrhea, melena, nausea or vomiting Genitourinary Genitourinary ED: Denies dysuria, hematuria or urinary frequency Musculoskeletal Musculoskeletal: Denies arthralgias, back pain, myalgias or neck pain Integumentary Reports Abrasions and other Details: Abrasion right hand ulnar side near the MCP joint of the right little finger Neurologic Neurologic: Denies headache(s), paresthesias or weakness Hematologic/Lymphatic Hematologic/Lymphatic: Reports easy bleeding, easy bruising and other Details: Patient is on Eliquis. Allergic/Immunologic Allergic/Immunologic ED: Reports other Details: Patient has dentures. Denies dental trauma. Denies difficulty opening closing his mouth completely. ; Denies mouth swelling, tongue swelling or urticaria EXAM Physical Exam Const Vital Signs: 07/19/22 12:18 07/19/22 12:51 07/19/22 14:17 Temperature 97.8 F Temperature Source Temporal Pulse Rate 66 59 L Respiratory Rate 18 16 Respiratory Effort Normal Respiratory Depth Normal Respiratory Pattern Normal Blood Pressure 129/66 H 120/78 Blood Pressure Mean 87 92 Pulse Ox 95 99 Oxygen Delivery Method Room Air Room Air Room Air Positive well nourished, well developed and obese Constitutional Narrative: Patient appears uncomfortable. He grimaces with movement. General Appearance ED: well developed Nutritional Appearance: obese HEENT Reports normocephalic, TM's clear and TM's normal bilaterally HEENT Narrative: There is no clinical findings of basilar skull fracture. There is no septal deviation hematoma. There is no dental trauma. Posterior pharynx is normal. atraumatic Tympanic Membrane ED: Yes TM's clear Eyes PERRL and EOMs intact bilaterally Eyes Narrative: There is no subconjunctival hemorrhage. General Eye ED: Negative for pale conjunctiva or scleral icterus Neck full ROM, no lymphadenopathy and supple Neck Narrative: There is no midline posterior pain. He has full active motion. Chest Wall palpation of chest normal; Negative for inspection of chest normal Chest Narrative: Patient has pain over the right seventh, eighth and ninth rib. There is no crepitus or subcutaneous air. There is decreased breath sounds on the right side. Resp normal respiratory effort, no retractions and clear to auscultation bilaterally Auscultation: diminished lung sounds right lower Cardio regular rate, regular rhythm, S1 normal heart sound, S2 normal heart sound and no murmurs GI no masses; Negative for non-tender or non-distended GI Narrative: Abdomen is tympanitic. Bowel sounds are diminished. Patient has significant tenderness in the right upper quadrant. There is bruising noted. There is no pain to palpation the left upper quadrant. Patient does have guarding in the right upper quadrant. Back/Spine no CVA tenderness Cervical Spine: Negative for cervical spine tenderness Thoracic Spine / Upper Back: Negative for ROM limited, pain with ROM or thoracic spinal tenderness Extremity Extremity Narrative: Patient has venous stasis dermatitis to lower extremity with edema, which is chronic Neuro oriented x3, CN's II-XII intact bilaterally, moves all extremities, no focal motor deficits and no sensory deficits noted [place] Coma Scale: document GCS findings Spontaneous Obeys Commands Oriented 15 Sensorium / Orientation: alert Sensory Exam: sensory level loss detected Motor Exam: strength 5/5 throughout Psych mental status grossly normal and thought process normal Skin Lesions: no lesions Rashes: no rashes Trauma: abrasion MDM MDM MDM Narrative Medical decision making narrative: With evidence of trauma to the right upper quadrant with bruising and on anticoagulant with significant right upper quadrant pain CT of the abdomen and pelvis with IV contrast was obtained to evaluate for hepatic injury i.e. subcapsular hematoma, laceration and evaluate for lower rib cage fractures as well. This will also evaluate for small pneumothorax or hemothorax. CBC was obtained assess white count and H&H. BMP was obtained since he is receiving IV contrast and had an elevated creatinine of 1.36. This does not exclude him from having a CAT scan with IV contrast. He was medicated with IV morphine for his pain. Tetanus is up-to-date. I did review prior medical records which included cardiac notes, general medical notes. Patient does have history of ischemic cardiomyopathy with a JENNIFER. Since he does have history of dysrhythmia patient was placed on the monitor. I was informed by the charge nurse at 1330 the daughter called and a concern that he may be passing out. Parent late last time he had single episodes or passed out even though patient is denying he had cardiac ischemia. For this reason we will obtain EKG and add a troponin level. EKG was unremarkable unchanged from prior. Troponins normal. Lab Data Attestation: I reviewed the patient's lab results. Lab results narrative: CBC is unremarkable. H&H is normal. Basic metabolic panel is remarked for slight elevation of BUN and creatinine of 20 and 1.21 which is an improvement compared to prior. Glucose elevated 208 with a normal CO2 and anion gap. Labs: Laboratory Results - last 24 hr 07/19/22 07/19/22 07/19/22 12:40 12:50 12:50 WBC 9.0 RBC 4.46 L Hgb 14.0 Hct 40.9 MCV 91.7 MCH 31.4 MCHC 34.2 RDW Std Deviation 45.2 H RDW Coeff of Kip 13.3 Plt Count 206 MPV 10.0 Immature Gran % (Auto) 0.600 Neut % (Auto) 74.0 H Lymph % (Auto) 12.1 L [place] % (Auto) 8.7 Eos % (Auto) 3.7 Baso % (Auto) 0.9 Absolute Neuts (auto) 6.7 Absolute Lymphs (auto) 1.09 Nucleated RBC % 0 Sodium 140 Potassium 4.0 Chloride 110 H Carbon Dioxide 25.0 Anion Gap 5 BUN 20 H Creatinine 1.21 Estim Creat Clear Calc 47.04 Est GFR (MDRD) Af Amer 75 Est GFR (MDRD) Non-Af 62 BUN/Creatinine Ratio 16.5 Glucose 208 H Calcium 8.5 Troponin I High Sens POC Glucose 183 H 07/19/22 14:50 WBC RBC Hgb Hct MCV MCH MCHC RDW Std Deviation RDW Coeff of Kip Plt Count MPV Immature Gran % (Auto) Neut % (Auto) Lymph % (Auto) [place] % (Auto) Eos % (Auto) Baso % (Auto) Absolute Neuts (auto) Absolute Lymphs (auto) Nucleated RBC % Sodium Potassium Chloride Carbon Dioxide Anion Gap BUN Creatinine Estim Creat Clear Calc Est GFR (MDRD) Af Amer Est GFR (MDRD) Non-Af BUN/Creatinine Ratio Glucose Calcium Troponin I High Sens 15 POC Glucose Radiography Diagnostic Testing: Clinical Impression(s) from Imaging Studies Abdomen/Pelvis CT 07/19/22 12:29 IMPRESSION: Multiple gallstones. Pancreatic atrophy. Mild increased markings at the lung bases suggestive of atelectasis and/or scarring. Electronically Signed: Ramone Mcmahon MD at 13:39 EST , Rhythm Strip Rhythm Strip: Sinus Rhythm Rate: 65 Ectopy: None Treatment and Re-Evaluation Narrative: Patient was informed of his laboratory results. He was informed that there is no injury to his liver. He was discharged with opiate analgesics. NSAIDs are contraindicated in this patient. Discharge Plan Triage Chief Complaint: Fall ED Provider: Maurice Hui Dx/Rx/DC Orders Clinical Impression: Injury due to fall, Atherosclerotic heart disease of [place] coronary artery without angina pectoris, Essential (primary) hypertension, Hyperlipidemia, unspecified, Type 2 diabetes mellitus, Peripheral vascular disease, Ischemic cardiomyopathy, Atelectasis of right lung, Contusion of abdominal wall, initial encounter, Anticoagulant long-term use, Abrasion of right hand, initial encounter Instructions: ED Abrasion, ED Chest Wall Contusion, ED Bruise, Rib Prescriptions: New oxycodone-acetaminophen [oxycodone-acetaminophen] 5-325 mg tablet 1 tab PO Q6H PRN PRN (Reason: Pain) 3 Days Qty: 12 0RF No Action fluticasone propionate [Flonase Allergy Relief] 50 mcg/actuation spray,suspension 50 mcg INTRANASAL QDAY PRN (Reason: Congestion) ipratropium-albuterol 0.5 mg-3 mg(2.5 mg base)/3 mL solution for nebulization 3 ml INHALATION Q4HWA.RT PRN (Reason: Sob &/Or Wheezing) isosorbide mononitrate 30 mg tablet extended release 24 hr 30 mg PO BID montelukast 10 mg tablet 10 mg PO DAILY nitroglycerin 0.4 mg tablet, sublingual 0.4 mg SUBLINGUAL Q5M PRN (Reason: Chest Pain) Qty: 25 3RF albuterol sulfate 90 mcg/actuation HFA aerosol inhaler 2 puff inhalation Q4H PRN (Reason: shortness of breath or wheezing) Qty: 8.5 6RF Rx Instructions: administer with spacer metformin 500 mg tablet 500 mg PO BID carvedilol 12.5 mg tablet 6.25 mg PO BID ramipril 10 MG capsule 10 mg PO BID atorvastatin 80 MG tablet 80 mg PO QHS amlodipine 10 MG tablet 10 mg PO DAILY acetaminophen [Tylenol Extra Strength] 500 mg Tablet 1,000 mg PO Q6H PRN (Reason: Pain) albuterol sulfate 2.5 mg /3 mL (0.083 %) solution for nebulization 2.5 mg inhalation Q4H PRN Qty: 25 0RF Rx Instructions: Use q4 hours and PRN for wheezing prednisone 20 mg tablet 60 mg PO DAILY Qty: 15 0RF doxycycline monohydrate 100 mg capsule 100 mg PO BID Qty: 20 0RF Eliquis 5 mg tablet 5 mg PO BID Qty: 180 3RF budesonide-formoterol [Symbicort] 160-4.5 mcg/actuation HFA aerosol inhaler 2 puff INHALATION Q12H Qty: 3 3RF Primary Care Provider: Fito Velez Referrals: Fito Velez MD [Primary Care Provider] - 1 Week if not improving Disposition Disposition: Home, Self Care
[2022-07-19] MEDS: Ondansetron 4 MG/2 ML Vial IV (12:40)
[2022-07-19] MEDS: Morphine 4 MG/ML Syringe IV (12:40)
[2022-07-19 13:07] LABS: Absolute Lymphocyte Count 1.09 X10^3/uL (0.83-4.51); Absolute Neutrophil Count 6.7 X10^3/uL (2.0-7.7); Basophil# 0.08 X10^3/uL; Basophil% 0.9 % (0-1); Eosinophil# 0.33 X10^3/uL; Eosinophils% 3.7 % (0-5); Hematocrit 40.9 % (40-54); Lymphocyte # 1.09 X10^3/ul (0.83-4.51); Lymphocyte % 12.1 % (19-41); Mean Corp Hgb Conc 34.2 g/dL (32-36); Mean Corpuscular Hgb 31.4 pg (27.0-32.0); Mean Corpuscular Volume 91.7 fL (80-94); Monocyte# 0.79 X10^3/uL; Monocyte% 8.7 % (0-10); NRBC Flagged by Analyzer 0 % (0-5); Neutrophil # 6.69 X10^3/uL (2.7-7.7); Platelet Count 206 K/mm3 (150-450); RBC Distribution Width CV 13.3 % (11.6-14.6); RBC Distribution Width SD 45.2 fl (35.1-43.9); Red Blood Count 4.46 M/mm3 (4.6-6.2)
--- NOTE | 2022-07-19 13:22 | ED.RN ---
PTS DAUGHTER EDIS CALLED IN TO SPEAK WITH PT'S PRIMARY NURSE OR PHYSICIAN. tHIS RN SPOKE WITH PT. PT EXPRESSED CONCERN THAT THE PATIENT WASN'T EXPLAINING ALL OF HEALTH PROBLEMS. SHE STATES SHE IS CONCERNED THAT LAST TIME HE DID THIS IT PRECEDED A HEART ATTACK. THIS RN PASSED THIS INFORMATION ON TO DR. DAVEY. THIS RN DID NOT GIVE OUT ANY INFORMATION ON PATIENT OR CURRENT TREATMENT PLAN AND WAS TOLD TO CONTACT HER DAD DIRECTLY OR WE CAN FACILITATE A PHONE CALL.
[2022-07-19 13:23] LABS: Anion Gap 5 (5-15); BUN 20 mg/dL (7-18); BUN/Creat Ratio 16.5 RATIO (10-20); Calcium,Total 8.5 mg/dL (8.5-10.1); Chloride 110 mmol/L (98-107); Creatinine, Serum 1.21 mg/dL (0.70-1.30); EST Glomerular Filtration Rate 62 mL/min (>60); Est Glom Filt Rate - Afr Amer 75 mL/min (>60); Estimated Creatinine Clearance 47.04 ml/min; Glucose 208 mg/dL (74-106); Sodium Level 140 mmol/L (136-145)
--- NOTE | 2022-07-19 13:31 | EKG12_ITS ---
Test Reason : TRAUMA Blood Pressure : / mmHG Vent. Rate : 062 BPM Atrial Rate : 062 BPM P-R Int : 000 ms QRS Dur : 190 ms QT Int : 540 ms P-R-T Axes : 027 -85 113 degrees QTc Int : 548 ms Ventricular-paced rhythm Biventricular pacemaker detected Abnormal ECG Confirmed by MARCIO MEYER, SHARIF ([id number]), market editor WHITNEY SUÁREZ ([id number]) on 07/24/2022 12:18:15 PM Referred By: Confirmed By:SHARIF BUCKLEY MD
[2022-07-19 14:17] VITALS: BP 120/78; PULSE 59; RESP 16; O2SAT 99
[2022-07-19 14:21] LABS: Bedside Glucose 183 mg/dL (74-106)
[2022-07-19 15:35] LABS: Troponin-I HS 15 pg/mL (3.0-78.0)
[2022-07-19 16:06] VITALS: BP 137/78; PULSE 34; RESP 18; TEMP 36.9; O2SAT 96
== END 2022-07-19 16:25 | disposition home or self-care (01) ==
PROVIDERS: Emergency Provider Emergency Medicine; PCP Family Medicine; Visit Provider Emergency Medicine
DX: S60.511A Abrasion of right hand, initial encounter (principal); E11.51 Type 2 diabetes mellitus with diabetic peripheral angiopathy without gangrene; J44.9 Chronic obstructive pulmonary disease, unspecified; I25.5 Ischemic cardiomyopathy; I25.10 Atherosclerotic heart disease of native coronary artery without angina pectoris; W18.30XA Fall on same level, unspecified, initial encounter; S29.001A Unspecified injury of muscle and tendon of front wall of thorax, initial encounter; S30.1XXA Contusion of abdominal wall, initial encounter; I10 Essential (primary) hypertension; J98.11 Atelectasis; Z79.01 Long term (current) use of anticoagulants; Z87.891 Personal history of nicotine dependence; E78.5 Hyperlipidemia, unspecified; Z86.16 Personal history of COVID-19; G47.33 Obstructive sleep apnea (adult) (pediatric)
CPT/HCPCS: 74177; 80048; 82962; 84484; 85025; 93005; 96374; 96375; 99283; J7030; Q9967; J2405

== ENCOUNTER 2022-07-31 14:43 | Emergency (ER) | payer MEDICARE, OTHER, SELFPAY ==
[2022-07-31 14:44] VITALS: BP 119/70; PULSE 71; RESP 16; TEMP 36.8; O2SAT 95; BMI 32.4
--- NOTE | 2022-07-31 15:16 | CT_ITS ---
STUDY: CT BRAIN WITHOUT CONTRAST REASON FOR EXAM: Male, 76 years old. Head injury RADIATION DOSAGE (If Supplied By Facility): CTDIvol = ( 44.99 ) mGy, DLP = ( 880.47 ) mGycm TECHNIQUE: Transaxial CT imaging of the brain was performed without administration of intravenous contrast material. Individualized dose optimization techniques were used for this CT. COMPARISON: No relevant priors. FINDINGS: Normal soft tissue structures. Normal calvarium. There is mild cerebral atrophy with widening of the extra-axial spaces and ventricular dilatation. There are areas of decreased attenuation within the white matter tracts of the supratentorial brain, consistent with microvascular disease changes. 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 Normal brainstem. Normal cerebellum. There is no intracranial hemorrhage. There are no findings of an acute ischemic infarction. Normal visualized paranasal sinuses. CT/Brain/Head without Contrast IMPRESSION: Chronic involutional changes of the brain. Electronically Signed: Ramone Mcmahon MD at 15:41 EST ,
[2022-07-31 15:43] VITALS: BP 146/79; PULSE 74; RESP 18; TEMP 36.8; O2SAT 97
--- NOTE | 2022-07-31 15:51 | EDS_ITS ---
HPI History of Present Illness Chief Complaint: Laceration Narrative Narrative: 76-year-old male presenting with superficial laceration to the apical aspect of his scalp. Patient states that his baker came down on his head. He denies LOC, dizziness, lightheadedness, nausea, visual complaints, slurred speech, ataxia. Patient states that he initially had trouble controlling the bleeding on his scalp because he is on Eliquis. He was able to get it under control. Patient denies headache. He denies neck pain. He states he is otherwise well prior to the injury. [facility] Medical History Allergic rhinitis Atherosclerotic heart disease of [place] coronary artery without angina pectoris Atrial flutter CAD (coronary artery disease) Carotid artery disease COPD (chronic obstructive pulmonary disease) COVID-19 Essential (primary) hypertension Femoral artery aneurysm, right Hyperlipidemia, unspecified Influenza B Ischemic cardiomyopathy Near syncope Nicotine dependence in remission NSVT (nonsustained ventricular tachycardia) Obesity BHARAT (obstructive sleep apnea) Peripheral vascular disease Shortness of breath T-cell lymphoma Home Medications ramipril 10 mg capsule 10 mg PO BID blood pressure 12/25/13 [History Last Taken 02/13/21] fluticasone propionate 50 mcg/actuation nasal spray,suspension (Flonase Allergy Relief) 50 mcg intranasal QDAY PRN Congestion 06/25/17 [History Last Taken 02/13/21] atorvastatin 80 mg tablet 80 mg PO QHS cholesterol 08/14/17 [History Last Taken 02/13/21] ipratropium 0.5 mg-albuterol 3 mg (2.5 mg base)/3 mL nebulization soln 3 ml inhalation Q4HWA.RT PRN Sob &/Or Wheezing 09/03/18 [History Last Taken 05/06/20] isosorbide mononitrate 30 mg tablet,extended release 24 hr 30 mg PO BID blood pressure 10/28/19 [History Last Taken 02/13/21] montelukast 10 mg tablet 10 mg PO DAILY allergy 02/17/20 [History Last Taken 02/13/21] amlodipine 10 mg tablet 10 mg PO DAILY blood pressure 05/07/20 [History Last Taken 02/13/21] metformin 500 mg tablet 500 mg PO BID 06/28/20 [History Last Taken 02/13/21] nitroglycerin 0.4 mg sublingual tablet 0.4 mg sublingual Q5M PRN Chest Pain #25 tabs 01/03/21 [Rx Last Taken Unknown] acetaminophen 500 mg tablet (Tylenol Extra Strength) 1,000 mg PO Q6H PRN Pain 02/14/21 [History Last Taken 02/14/21] albuterol sulfate 90 mcg/actuation aerosol inhaler 2 puff inhalation Q4H PRN shortness of breath or wheezing #8.5 grams 02/22/21 [Rx Last Taken Unknown] apixaban 5 mg tablet (Eliquis) 5 mg PO BID #180 tabs 11/21/21 [Rx Last Taken Un known] budesonide-formoterol HFA 160 mcg-4.5 mcg/actuation aerosol inhaler (Symbicort) 2 puff inhalation Q12H #3 device 03/14/22 [Rx Last Taken Unknown] carvedilol 12.5 mg tablet 6.25 mg PO BID 05/05/22 [History Last Taken Unknown] albuterol sulfate 2.5 mg/3 mL (0.083 %) solution for nebulization 2.5 mg (3 mL) inhalation Q4H PRN #25 vials 06/17/22 [Rx Last Taken Unknown] amiodarone 200 mg tablet 200 mg PO DAILY 07/31/22 [History Last Taken Unknown] Allergy/AdvReac Type Severity Reaction Status Date / Time ciprofloxacin [From Cipro] Allergy Swelling Verified 07/31/22 14:45 ciprofloxacin HCl Allergy hand Verified 07/31/22 14:45 [From Cipro] Swelling Sulfa (Sulfonamide Allergy Unknown Verified 07/31/22 14:45 Antibiotics) Family History Father Heart disease Cancer Prostate Brother Cancer prostate cancer Surgical History Aortocoronary bypass status (~05/17/12) h/o left TKA History of left knee replacement History of permanent cardiac pacemaker placement History of tonsillectomy Hx of CABG Presence of biventricular implantable cardioverter-defibrillator (ICD) (04/22/12) Presence of other cardiac implants and grafts Presence of stent in coronary artery Social History household members: none Smoking Status: Former smoker pack-years: 75 how long ago did patient quit smokin years ago second hand exposure: No alcohol intake: current alcohol intake frequency: holidays/special occasions only Alcohol type: beer substance use type: does not use caffeine: Yes Type: carbonated beverages Number of servings: 1 ROS ROS ED Constitutional Constitutional ED: Denies chills or fever(s) Eyes Eyes: Denies blurry vision or change in vision ENT ENT ED: Denies rhinorrhea or sore throat Cardiovascular Cardiovascular: Denies chest pain or palpitations Respiratory/Chest Respiratory/Chest: Denies cough or dyspnea Gastrointestinal Gastrointestinal: Denies abdominal pain or constipation Genitourinary Genitourinary ED: Denies dysuria or hematuria Musculoskeletal Musculoskeletal: Denies arthralgias or neck pain Integumentary Reports other; Denies abscess Neurologic Neurologic: Denies headache(s) or paresthesias EXAM Physical Exam Const Vital Signs: 07/31/22 14:44 Temperature 98.2 F Temperature Source Oral Pulse Rate 71 Respiratory Rate 16 Blood Pressure 119/70 Blood Pressure Mean 86 Pulse Ox 95 Oxygen Delivery Method Room Air Positive well nourished General Appearance ED: NAD HEENT Reports normocephalic, EAC's normal, TM's normal bilaterally and moist mucous membranes Negative for palpable skull fracture or raccoon eyes Face and Sinus: normal facial exam Mouth ED: Yes oral and palatal mucosa normal, Yes lips normal and Yes tongue normal Mouth: oral and palatal mucosa normal, lips normal and tongue normal Throat: posterior oropharynx normal Eyes PERRL and EOMs intact bilaterally Chest Wall inspection of chest normal and palpation of chest normal Resp normal respiratory effort and clear to auscultation bilaterally Cardio regular rhythm Rate: regular rate GI normal to inspection, nondistended, normoactive bowel sounds Back/Spine normal to inspection Extremity normal to inspection Neuro oriented x3 and CN's II-XII intact bilaterally Motor Exam: strength 5/5 throughout Psych mental status grossly normal Skin Skin Narrative: 3 cm superficial laceration to the scalp of the apex. Wound margins well controlled. Bleeding is controlled. No skull deformities MDM MDM MDM Narrative Medical decision making narrative: Patient with superficial scalp laceration about 3 cm on the apex of the scalp. Bleeding is well controlled. Margins are well approximated. I do not believe needs sutures or arsenio. Patient with no focal neurologic deficits or la teralizing signs or symptoms. I did obtain a CT of the brain which is negative. Patient's wound will be cleaned and dressed. I feel he stable for discharge home at this time. Impression: 1. Closed head injury 2. 3 cm superficial scalp laceration Lab Data Attestation: I reviewed the patient's lab results. Radiography Diagnostic Testing: Clinical Impression(s) from Imaging Studies Brain CT 07/31/22 15:16 IMPRESSION: Chronic involutional changes of the brain. Electronically Signed: Ramone Mcmahon MD at 15:41 EST , Discharge Plan Triage Chief Complaint: Laceration ED Provider: Mihir Cobb Dx/Rx/DC Orders Instructions: ED Head Injury (Adult), ED Laceration Small or ... Prescriptions: No Action fluticasone propionate [Flonase Allergy Relief] 50 mcg/actuation spray,suspension 50 mcg INTRANASAL QDAY PRN (Reason: Congestion) ipratropium-albuterol 0.5 mg-3 mg(2.5 mg base)/3 mL solution for nebulization 3 ml INHALATION Q4HWA.RT PRN (Reason: Sob &/Or Wheezing) isosorbide mononitrate 30 mg tablet extended release 24 hr 30 mg PO BID montelukast 10 mg tablet 10 mg PO DAILY nitroglycerin 0.4 mg tablet, sublingual 0.4 mg SUBLINGUAL Q5M PRN (Reason: Chest Pain) Qty: 25 3RF albuterol sulfate 90 mcg/actuation HFA aerosol inhaler 2 puff inhalation Q4H PRN (Reason: shortness of breath or wheezing) Qty: 8.5 6RF Rx Instructions: administer with spacer metformin 500 mg tablet 500 mg PO BID amiodarone 200 mg tablet 200 mg PO DAILY carvedilol 12.5 mg tablet 6.25 mg PO BID ramipril 10 MG capsule 10 mg PO BID atorvastatin 80 MG tablet 80 mg PO QHS amlodipine 10 MG tablet 10 mg PO DAILY acetaminophen [Tylenol Extra Strength] 500 mg Tablet 1,000 mg PO Q6H PRN (Reason: Pain) albuterol sulfate 2.5 mg /3 mL (0.083 %) solution for nebulization 2.5 mg inhalation Q4H PRN Qty: 25 0RF Rx Instructions: Use q4 hours and PRN for wheezing Eliquis 5 mg tablet 5 mg PO BID Qty: 180 3RF budesonide-formoterol [Symbicort] 160-4.5 mcg/actuation HFA aerosol inhaler 2 puff INHALATION Q12H Qty: 3 3RF Primary Care Provider: Fito Velez Referrals: Fito Velez MD [Primary Care Provider] - Disposition Disposition: Home, Self Care
== END 2022-07-31 16:20 | disposition home or self-care (01) ==
PROVIDERS: Emergency Provider Student in an Organized Health Care Education/Training Program; PCP Family Medicine; Visit Provider Student in an Organized Health Care Education/Training Program
DX: S01.01XA Laceration without foreign body of scalp, initial encounter (principal); J44.9 Chronic obstructive pulmonary disease, unspecified; Z87.891 Personal history of nicotine dependence; I25.10 Atherosclerotic heart disease of native coronary artery without angina pectoris; E78.5 Hyperlipidemia, unspecified; I10 Essential (primary) hypertension; W22.8XXA Striking against or struck by other objects, initial encounter
CPT/HCPCS: 70450; 96374; 99283

== ENCOUNTER → 2022-08-23 | Outpatient (CLI) | payer MEDICARE, OTHER, SELFPAY ==
--- NOTE | 2022-08-23 08:57 | STRESSREP_ITS ---
Stress Test Report Date: 08-23-2022 Procedure: Pharmacologic stress nuclear imaging study Indications: Chest pain; CAD; PCI; CABG; ischemic mediated cardiomyopathy; chronic systolic CHF; atrial dysrhythmia; PVT; biventricular ICD; hyperlipidemia; hypertension; carotid artery disease Consent: Per the patient Procedure: The patient underwent pharmacologic (Regadenoson 0.4mg ) evaluation with a peak heart rate of 90 beats per minute (63%predicted maximal heart rate) and a resting blood pressure of 114/64 mmHg and a peak blood pressure of 130/72 mmHg. The baseline ECG demonstrated electronic ventricular paced rhythm. The peak pharmacologic ECG demonstrated electronic ventricular paced rhythm. There were no cardiac dysrhythmias pretest, during pharmacologic infusion, or recovery. There was no complaint of chest discomfort during pharmacologic infusion or recovery. The examination was discontinued secondary to completion of protocol. Impression: 1. Pharmacologic (Regadenoson) evaluation 2. Peak pharmacologic ECG with an electronic ventricular paced rhythm. 3. There were no cardiac dysrhythmias pretest, during pharmacologic infusion, or recovery. 4. Nuclear images pending Myocardial perfusion imaging study: Technique: The patient was injected with 14.3 millicuries of technetium 99m Cardiolite and subsequently rest SPECT Cardiolite nuclear imaging was obtained in the horizontal long, vertical long, and short axis views. The patient underwent pharmacologic (Regadenoson) evaluation with a peak heart rate of 90 beats per minute (63% percent predicted maximal heart rate) and a resting blood pressure of 114/64 mmHg and a peak blood pressure of 130/72 mmHg. The patient was injected with 45.0 millicuries of technetium 99m Cardiolite and subsequently stress SPECT Cardiolite nuclear imaging was obtained in the horizontal long, vertical long, and short axis views. A gated Cardiolite study at peak stress was obtained. Interpretation: Rest and stress SPECT Cardiolite nuclear imaging status post realignment, normalization, and attenuation correction demonstrate relative uniform tracer uptake and myocardial perfusion appearing within normal limits. There is end systolic thickening and brightening. The gated Cardiolite study demonstrates myocardial thickening and inward wall motion. The reported LVEF is 66%. Impression: 1. Rest and stress SPECT Cardiolite nuclear imaging demonstrate relative uniform tracer uptake and myocardial perfusion appearing within normal limits. 2. The gated Cardiolite study reports an LVEF of 66%. This note was generated with [employer] software. It may contain incorrect words, spelling, and punctuation that were not noted in checking the note before signing.
== END | disposition home or self-care (01) ==
LOC: CVS 07:27
PROVIDERS: PCP Family Medicine; Visit Provider Internal Medicine Cardiovascular Disease
DX: Z95.1 Presence of aortocoronary bypass graft (principal); I47.20 Ventricular tachycardia, unspecified; I25.10 Atherosclerotic heart disease of native coronary artery without angina pectoris; I25.5 Ischemic cardiomyopathy; Z95.810 Presence of automatic (implantable) cardiac defibrillator; Z95.5 Presence of coronary angioplasty implant and graft; E78.5 Hyperlipidemia, unspecified; I10 Essential (primary) hypertension
CPT/HCPCS: 78452; 93017; A9500; A4216; J2785

== ENCOUNTER → 2022-09-19 | Outpatient (CLI) | payer MEDICARE, OTHER, SELFPAY ==
[2022-09-19 11:00] VITALS: PULSE 72; PULSE 74; PULSE 85; PULSE 87; PULSE 90; PULSE 91; PULSE 92; PULSE 95; O2SAT 91; O2SAT 92; O2SAT 94; O2SAT 95
--- NOTE | 2022-09-19 15:04 | PCM.PSN.6M ---
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 Assistive device used: None Pre-test Oxygen Delivery Method Room Air Pulse Ox (%) 94 Pulse Rate (60-100 beats/min) 72 Dyspnea Guido Scale (0-10) 0 Exertion Guido Scale (6-20) 6 1st minute Oxygen Delivery Method Room Air Pulse Ox (%) 94 Pulse Rate (60-100 beats/min) 92 2nd minute Oxygen Delivery Method Room Air Pulse Ox (%) 92 Pulse Rate (60-100 beats/min) 85 3rd minute Oxygen Delivery Method Room Air Pulse Ox (%) 91 Pulse Rate (60-100 beats/min) 87 4th minute Oxygen Delivery Method Room Air Pulse Ox (%) 92 Pulse Rate (60-100 beats/min) 90 5th minute Oxygen Delivery Method Room Air Pulse Ox (%) 92 Pulse Rate (60-100 beats/min) 91 6th minute Oxygen Delivery Method Room Air Pulse Ox (%) 92 Pulse Rate (60-100 beats/min) 95 Dyspnea Guido Scale (0-10) 4 Exertion Guido Scale (6-20) 13 Post-test Oxygen Delivery Method Room Air Pulse Ox (%) 95 Pulse Rate (60-100 beats/min) 74 Full Laps Walked 12 Partial Lap, Number of Tiles Walked 0 Total Distance Walked (ft) 708 Interpretation Interpretation: The patient was able to ambulate 708 feet over the course of 6 minutes on room air with no assistive devices or breaks. The patient did experience significant desaturation from baseline of 94% to as low as 91%. No significant tachycardia was noted. These findings are consistent with a respiratory limitation exercise tolerance. Recommendations Recommendations: No supplemental oxygen is indicated at this time. However, patient will need to be followed closely given level of desaturation.
== END | disposition home or self-care (01) ==
LOC: PSN 11:13
PROVIDERS: PCP Family Medicine; Referring Provider Nurse Practitioner Acute Care; Visit Provider Nurse Practitioner Acute Care
DX: R06.09 Other forms of dyspnea (principal)
CPT/HCPCS: 94618

== ENCOUNTER → 2022-09-28 | Outpatient (CLI) | payer MEDICARE, OTHER, SELFPAY ==
--- NOTE | 2022-09-29 09:33 | PFT ---
INTRODUCTION: The patient is a 76-year-old male who presents for pulmonary function studies secondary to a diagnosis of high risk medication use. Respiratory therapy reported good patient effort. Bronchodilators were used during testing. INTERPRETATION: Forced expiration spirometry demonstrates the presence of a mild large airways obstructive ventilatory defect. There was no significant response to aerosolized bronchodilators. Spirograms are of good quality and plateau normally. Body plethysmography was performed and revealed lung volumes to be within normal limits. Diffusing capacity by single breath CO is reduced to 55% of predicted. IMPRESSION: Irreversible mild large airways obstructive ventilatory defect with symmetric reduction in diffusing capacity.
== END | disposition home or self-care (01) ==
PROVIDERS: PCP Family Medicine; Referring Provider Nurse Practitioner Acute Care; Visit Provider Nurse Practitioner Acute Care
DX: R06.09 Other forms of dyspnea (principal)
CPT/HCPCS: 94060; 94726; 94729

== ENCOUNTER 2023-04-23 13:31 | Inpatient (IN) | payer MEDICARE, OTHER, SELFPAY ==
[2023-04-23] VITALS (16 sets, daily range): BP systolic 116–154; BP diastolic 64–77; PULSE 64–94; RESP 14–26; TEMP 36.4–36.5; O2SAT 91–98; BMI 40.1; BMI 32.1
--- NOTE | 2023-04-23 13:59 | EKG12_ITS ---
Test Reason : SOB Blood Pressure : / mmHG Vent. Rate : 075 BPM Atrial Rate : 075 BPM P-R Int : 106 ms QRS Dur : 176 ms QT Int : 480 ms P-R-T Axes : 079 258 089 degrees QTc Int : 536 ms Atrial-sensed ventricular-paced rhythm Biventricular pacemaker detected Abnormal ECG When compared with ECG of 19-JUL-2022 13:34, Vent. rate has increased BY 13 BPM Confirmed by MARCIO MEYER, SHARIF ([id number]), deputy editor in chief ANNABELLA ROSA ([id number]) on 04/26/2023 1:52:21 PM Referred By: TITI Confirmed By:SHARIF BUCKLEY MD
[2023-04-23] MEDS: Ipratropium/Albuterol Sulfate 3 ML AMPUL.NEB INHALATION ×2 (14:09→19:41)
[2023-04-23 14:14] LABS: Absolute Lymphocyte Count 0.42 X10^3/uL (0.83-4.51); Absolute Neutrophil Count 17.2 X10^3/uL (2.0-7.7); Basophil# 0.05 X10^3/uL; Basophil% 0.3 % (0-1); Hematocrit 42.6 % (40-54); Lymphocyte # 0.42 X10^3/ul (0.83-4.51); Lymphocyte % 2.2 % (19-41); Mean Corp Hgb Conc 32.9 g/dL (32-36); Mean Corpuscular Hgb 30.5 pg (27.0-32.0); Mean Corpuscular Volume 92.8 fL (80-94); Mean Platelet Vol. 10.7 fl (6.2-12.0); Monocyte# 1.18 X10^3/uL; Monocyte% 6.2 % (0-10); NRBC Flagged by Analyzer 0 % (0-5); Neutrophil # 17.19 X10^3/uL (2.7-7.7); Neutrophil % 90.6 % (47-70); POSITIVE DIFFERENTIAL YES; Platelet Count 183 K/mm3 (150-450); RBC Distribution Width SD 44.3 fl (35.1-43.9); Red Blood Count 4.59 M/mm3 (4.6-6.2)
[2023-04-23 14:15] LABS: Differential Indicated SCAN CRITERIA MET
[2023-04-23 14:34] LABS: BNP,B-Type NATRIURETIC PEPTIDE 275.5 pg/mL (0-100)
[2023-04-23 14:39] LABS: Anion Gap 7 (5-15); BUN 17 mg/dL (7-18); BUN/Creat Ratio 13.7 RATIO (10-20); Calcium,Total 8.6 mg/dL (8.5-10.1); Chloride 109 mmol/L (98-107); Creatinine, Serum 1.24 mg/dL (0.70-1.30); EST Glomerular Filtration Rate 60 mL/min (>60); Est Glom Filt Rate - Afr Amer 72 mL/min (>60); Glucose 167 mg/dL (74-106); Potassium 3.5 mmol/L (3.5-5.1); Sodium Level 142 mmol/L (136-145); Troponin-I HS (w/2H Reflex) 20 pg/mL (3.0-78.0)
[2023-04-23 14:47] LABS: International Normalized Ratio 1.5; Prothrombin Time (Protime)PT. 18.4 SECONDS (11.7-14.9)
[2023-04-23 14:58] LABS: Partial Thromboplast Time 38.3 Seconds (24.1-36.2)
--- NOTE | 2023-04-23 15:04 | RAD_ITS ---
STUDY: X-RAY CHEST REASON FOR EXAM: Male, 77 years old. Dyspnea TECHNIQUE: Frontal and lateral views of the chest COMPARISON: 06/17/2022 FINDINGS: The lungs are clear. There are no pleural effusions. There is no pneumothorax. The heart is normal in size. Again noted are sternotomy wires and pacemaker. The visualized osseous structures are within normal limits. RAD/Chest PA and Lateral IMPRESSION: No acute thoracic pathology. Electronically Signed: Deniz Lemos MD at 15:33 EDT ,
[2023-04-23 15:08] LABS: D-Dimer Quantitative (DVT/PE) 0.46 FEU/ug/m (0.27-0.49)
[2023-04-23 15:19] LABS: Bacteria 0 SEEN /hpf (None Seen); Mucous, Urine 0 SEEN /hpf (<or=2+); Red Blood Cells-Urine 0 SEEN /hpf (0-5); Squamous Epithelial Cells - UA 0 SEEN /hpf (0-5)
--- NOTE | 2023-04-23 15:19 | EDS_ITS ---
HPI History of Present Illness Chief Complaint: Shortness of Breath Informant: patient and family Onset/Context/Timing Onset: Days Context: gradual Timing: Continuous Quality: Positive for Dyspnea on exertion Worsened by: Exertion Relieved by: Rest Associated Symptoms cough and rhinorrhea; Negative for post nasal drip, ear pain, fever, sore throat, chills, sweats, clear sputum, white sputum, yellow sputum or green sputum Narrative Narrative: Patient presents with shortness of breath that has been getting progressively worse over the past several days. Patient was seen at an outlying facility, was diagnosed with COVID-19, and was recommended admission to the hospital. Patient states he was given a dose of Lasix in the emergency department and a dose of a steroid prior to him being discharged. Patient states he was also given a prescription for Lasix but has not picked this up from the pharmacy yet. Patient did not want to be admitted at that facility. Patient signed out AGAINST MEDICAL ADVICE. Patient then came to the emergency department here today. Patient admits to a cough but denies any sputum production. Patient admits to some rhinorrhea. Family states patient had signs of congestive heart failure at the previous emergency department visit. Patient states his breathing is worse with any exertion. Patient denies any fevers or chills. Patient denies any chest pain. [facility] Medical History Allergic rhinitis Atherosclerotic heart disease of [place] coronary artery without angina pectoris Atrial flutter CAD (coronary artery disease) Carotid artery disease COPD (chronic obstructive pulmonary disease) COVID-19 Essential (primary) hypertension Femoral artery aneurysm, right Hyperlipidemia, unspecified Influenza B Ischemic cardiomyopathy Near syncope Nicotine dependence in remission NSVT (nonsustained ventricular tachycardia) Obesity BHARAT (obstructive sleep apnea) Peripheral vascular disease Shortness of breath T-cell lymphoma Home Medications ramipril 10 mg capsule 10 mg PO BID blood pressure 12/25/13 [History Last Taken 02/13/21] fluticasone propionate 50 mcg/actuation nasal spray,suspension (Flonase Allergy Relief) 50 mcg intranasal QDAY PRN Congestion 06/25/17 [History Last Taken 02/13/21] atorvastatin 80 mg tablet 80 mg PO QHS cholesterol 08/14/17 [History Last Taken 02/13/21] ipratropium 0.5 mg-albuterol 3 mg (2.5 mg base)/3 mL nebulization soln 3 ml inhalation Q4HWA.RT PRN Sob &/Or Wheezing 09/03/18 [History Last Taken 05/06/20] isosorbide mononitrate 30 mg tablet,extended release 24 hr 30 mg PO BID blood pressure 10/28/19 [History Last Taken 02/13/21] montelukast 10 mg tablet 10 mg PO DAILY allergy 02/17/20 [History Last Taken 02/13/21] amlodipine 10 mg tablet 10 mg PO DAILY blood pressure 05/07/20 [History Last Taken 02/13/21] metformin 500 mg tablet 500 mg PO BID 06/28/20 [History Last Taken 02/13/21] nitroglycerin 0.4 mg sublingual tablet 0.4 mg sublingual Q5M PRN Chest Pain #25 tabs 01/03/21 [Rx Last Taken Unknown] acetaminophen 500 mg tablet (Tylenol Extra Strength) 1,000 mg PO Q6H PRN Pain 02/14/21 [History Last Taken 02/14/21] albuterol sulfate 90 mcg/actuation aerosol inhaler 2 puff inhalation Q4H PRN shortness of breath or wheezing #8.5 grams 02/22/21 [Rx Last Taken Unknown] albuterol sulfate 2.5 mg/3 mL (0.083 %) solution for nebulization 2.5 mg (3 mL) inhalation Q4H PRN #25 vials 06/17/22 [Rx Last Taken Unknown] amiodarone 200 mg tablet 200 mg PO DAILY 07/31/22 [History Last Taken Unknown] apixaban 5 mg tablet (Eliquis) 5 mg PO BID #180 tabs 10/14/22 [Rx Last Taken Unknown] carvedilol 12.5 mg tablet 6.25 mg (1/2 x 12.5 mg) PO BID #180 tabs 12/11/22 [Rx Last Taken Unknown] budesonide-formoterol HFA 160 mcg-4.5 mcg/actuation aerosol inhaler (Symbicort) 2 puff inhalation Q12H #3 device 02/09/23 [Rx Last Taken Unknown] Allergy/AdvReac Type Severity Reaction Status Date / Time ciprofloxacin [From Cipro] Allergy Swelling Verified 04/23/23 13:33 ciprofloxacin HCl Allergy hand Verified 04/23/23 13:33 [From Cipro] Swelling Sulfa (Sulfonamide Allergy Unknown Verified 04/23/23 13:33 Antibiotics) Family History Father Heart disease Cancer Prostate Brother Cancer prostate cancer Surgical History Aortocoronary bypass status (~05/17/12) h/o left TKA History of left knee replacement History of permanent cardiac pacemaker placement History of tonsillectomy Hx of CABG Presence of biventricular implantable cardioverter-defibrillator (ICD) (04/22/12) Presence of other cardiac implants and grafts Presence of stent in coronary artery Social History household members: none Smoking Status: Former smoker pack-years: 75 how long ago did patient quit smokin years ago second hand exposure: No alcohol intake: current alcohol intake frequency: holidays/special occasions only Alcohol type: beer substance use type: does not use caffeine: Yes Type: carbonated beverages Number of servings: 1 ROS ROS ED Constitutional Constitutional ED: Denies chills or fever(s) Eyes Eyes: Reports blurry vision; Denies diplopia ENT ENT ED: Denies rhinorrhea or sore throat Cardiovascular Cardiovascular: Denies chest pain or palpitations Respiratory/Chest Respiratory/Chest: Reports cough and dyspnea Gastrointestinal Gastrointestinal: Denies nausea or vomiting Genitourinary Genitourinary ED: Reports other Details: Urinary urgency ; Denies dysuria or hematuria Musculoskeletal Musculoskeletal: Denies back pain or neck pain Integumentary Denies abscess or rash Neurologic Neurologic: Denies headache(s) or weakness Allergic/Immunologic Allergic/Immunologic ED: Denies mouth swelling or urticaria EXAM Physical Exam Const Vital Signs: 04/23/23 13:33 04/23/23 13:32 04/23/23 14:09 Temperature 97.7 F L Temperature Source Temporal Pulse Rate 81 94 Respiratory Rate 26 H 22 H Respiratory Effort Short of Breath Respiratory Depth Shallow Respiratory Pattern Tachypnea Tachypnea Blood Pressure 116/66 Blood Pressure Mean 82 Pulse Ox 94 Oxygen Delivery Method Room Air Room Air 04/23/23 14:32 04/23/23 16:00 04/23/23 17:01 Temperature Temperature Source Pulse Rate 78 64 86 Respiratory Rate 16 14 16 Respiratory Effort Respiratory Depth Respiratory Pattern Blood Pressure 146/64 H 141/64 H 154/64 H Blood Pressure Mean 91 89 94 Pulse Ox 98 93 94 Oxygen Delivery Method Room Air Room Air 04/23/23 17:10 Temperature Temperature Source Pulse Rate 87 Respiratory Rate 18 Respiratory Effort Respiratory Depth Respiratory Pattern Normal Blood Pressure Blood Pressure Mean Pulse Ox Oxygen Delivery Method Positive well nourished and well developed General Appearance ED: well developed and NAD HEENT Reports moist mucous membranes Neck supple, no meningeal signs and no JVD Resp Auscultation: wheezes and diminished lung sounds Cardio regular rate and regular rhythm GI non-tender and non-distended Palpation: soft Extremity General Extremety ED: Yes edema and tenderness General Extremity: edema Neuro oriented x3, CN's II-XII intact bilaterally and no sensory deficits noted [place] Coma Scale: document GCS findings Spontaneous Obeys Commands Oriented 15 Sensorium / Orientation: alert Motor Exam: strength 5/5 throughout Psych mental status grossly normal MDM MDM MDM Narrative Medical decision making narrative: Differential diagnosis includes congestive heart failure, pneumonia, COVID-19, pneumothorax, cardiac dysrhythmia, cardiac ischemia, pulmonary embolism, and urinary tract infection. EKG will be obtained to assess for cardiac dysrhythmia and cardiac ischemia. Chest x-ray will be obtained to assess for pneumonia, pneumothorax, and congestive heart failure. CBC will be obtained to assess for leukocytosis and anemia. Basic metabolic profile will be obtained to assess for electrolyte abnormality and renal function. BNP will be obtained to assess for congestive heart failure. High-sensitivity troponin will be obtained to assess for cardiac ischemia. 2-hour repeat high-sensitivity troponin will be obtained to assess for ongoing cardiac ischemia. D-dimer will be obtained to assess for pulmonary embolism. PT with INR and PTT will be obtained to assess for coagulopathy. Patient recently tested positive for COVID-19. Therefore this will not be repeated. Lab Data Attestation: I reviewed the patient's lab results. Lab results narrative: CBC was reviewed. There is leukocytosis of 19.0. The remainder is within normal limits. PT with INR and PTT were reviewed. Pro time was 18.4 and INR is 1.5. PTT was 38.3. D-dimer was reviewed and was normal at 0.46. Basic metabolic profile was reviewed and was essentially within normal limits. High- sensitivity troponin was reviewed and was normal. BNP was reviewed and was slightly elevated at 275.5. Labs: Laboratory Results - last 24 hr 04/23/23 04/23/23 04/23/23 14:06 15:13 16:35 WBC 19.0 H RBC 4.59 L Hgb 14.0 Hct 42.6 MCV 92.8 MCH 30.5 MCHC 32.9 RDW Std Deviation 44.3 H RDW Coeff of Kip 13.0 Plt Count 183 MPV 10.7 Immature Gran % (Auto) 0.700 Neut % (Auto) 90.6 H Lymph % (Auto) 2.2 L [place] % (Auto) 6.2 Eos % (Auto) 0.0 Baso % (Auto) 0.3 Absolute Neuts (auto) 17.2 H Absolute Lymphs (auto) 0.42 L Nucleated RBC % 0 Differential Comment COMMENT PT 18.4 H INR 1.5 APTT 38.3 H D-Dimer Quant (PE/DVT) 0.46 Sodium 142 Potassium 3.5 Chloride 109 H Carbon Dioxide 26.0 Anion Gap 7 BUN 17 Creatinine 1.24 Est GFR (MDRD) Af Amer 72 Est GFR (MDRD) Non-Af 60 BUN/Creatinine Ratio 13.7 Glucose 167 H Calcium 8.6 Troponin I High Sens 20 19 B-Natriuretic Peptide 275.5 H Urine Color Yellow Urine Clarity Clear Urine pH 5.0 Ur Specific [place] 1.025 Urine Protein 30 H Urine Glucose (UA) 250 H Urine Ketones 5 H Urine Occult Blood 10 H Urine Nitrite Negative Urine Bilirubin 1 H Urine Urobilinogen 4 H Ur Leukocyte Esterase 25 H Urine RBC 0 SEEN Urine WBC 0-5 SEEN Ur Squamous Epith Cells 0 SEEN Urine Bacteria 0 SEEN Urine Mucus 0 SEEN Radiography Chest X-Ray - ED: 2 View, Read by ED Physician, Read by Radiologist and No Acute Disease Diagnostic Testing: Clinical Impression(s) from Imaging Studies Chest X-Ray 04/23/23 15:04 IMPRESSION: No acute thoracic pathology. Electronically Signed: Deniz Lemos MD at 15:33 EDT , [place] and lateral chest x-ray was obtained. There are 2 views. On my independent interpretation, lung quinones are clear. There is normal cardiac silhouette. Bony thorax is normal. There is no acute process noted. Radiologist also interpreted the x-ray and agrees. EKG Initial EKG: Attestation: I personally reviewed and interpreted this EKG as follows: Interpretation: Paced (75), LBBB and Non-Specific ST Changes Comments: EKG was obtained. On my interpretation, it shows a paced rhythm with a rate of 75. IL interval was 106 ms. QRS interval was 176 ms. QTc interval was 536 ms. There is right axis deviation at 258. There are nonspecific ST-T wave changes. There is a left bundle branch block pattern noted. This was unchanged compared to previous EKG dated 07/19/2022. Prior EKG tracings: available for review Prior: Unchanged (07/19/2022) Management Discussion w/another healthcare provider: Hospitalist Treatment and Re-Evaluation :: Patient was given a DuoNeb aerosol here. Patient is feeling better on reevaluation. Patient was advised of his findings. Patient ambulated on room air in the emergency department and his oxygen saturation dropped from 91 to 87% with ambulation. Because of this, I recommended admission to the hospital. Patient was agreeable with this. Case will be discussed with the hospitalist. Patient will be admitted to the hospital. All questions were answered. Discharge Plan Dx/Rx/DC Orders Clinical Impression: COVID-19, ARMSTRONG (dyspnea on exertion), Hypoxia, COPD exacerbation Disposition Disposition: Acute Care Hospital [facility]
[2023-04-23 15:22] LABS: Color, Urine Yellow (Yellow); Glucose, Dipstick 250 mg/dl (Normal); Ketone-Dipstick 5 mg/dl (Negative); Leukocyte Esterase-Dipstick 25 /ul (Negative); Nitrite-Dipstick Negative (Negative); Occult Blood-Urine 10 /ul (Negative); Protein-Dipstick 30 mg/dl (Negative); Specific Gravity, Urine 1.025 (1.002-1.030); Urine Clarity Clear (Clear); Urine Urobilinogen 4 mg/dl (Normal)
[2023-04-23 15:23] LABS: Urine Bilirubin Dipstick 1 mg/dL (Negative)
[2023-04-23 15:28] LABS: White Blood Cells 0-5 SEEN /hpf (0-5)
[2023-04-23 16:13] LABS: Reflex Troponin-HS? (from REC) Y
[2023-04-23 17:06] LABS: Troponin-I HS 19 pg/mL (3.0-78.0)
[2023-04-23] MEDS: Albuterol 2.5 MG/3 ML VIAL.NEB. INHALATION (17:08)
--- NOTE | 2023-04-23 17:12 | PCM.HP.STD ---
HPI - General General Date of Admission: 04/23/23 Date of Service: 04/23/23 Chief Complaint: Recent COVID diagnosis, dyspnea, fatigue, malaise. HPI Narrative The patient is a 77 y/o M w/ PMHx: CAD s/p CABG and PCI, Ischemic cardiomyopathy/HFrEF s/p AICD/pacemaker placement, HTN, HLD, Hx NSVT, PAF/Flutter, T-cell lymphoma, PVD, Obesity, BHARAT, Former tobacco use, COPD with allergic rhinitis, Diabetes mellitus type II who presents to the [facility] ED on 04/23/23 with history of recent diagnosis of COVID seen originally in [place] and also concern at that time per his report of volume overload but declined admission with symptoms eventually worsening prompting ED evaluation at [place]. He no that his symptoms started on Sunday most likely with cough, congestion, dyspnea, increased fatigue and malaise and lethargy with no specific fever, chills, nausea, emesis, diarrhea, abdominal cramping or pain but did have decreased oral intake secondary to lack of appetite. He denies having been vaccinated against COVID. Work-up in the ED included T97.7, heart rate 81, BP 116/66, respiratory rate 26, 94% on room air-->87% on RA with activity with minimal ambulation per discussion with ED physician, CBC with WBC 19, hemoglobin 14, platelet 183 with left shift and lymphopenia, coags with PT 18.4, INR 1.5, PTT 38.3, D-dimer 0.48, BMP with chloride 109, glucose 167, troponin 20 with repeat delta 19, BNP 275.5, chest x-ray with no acute cardiopulmonary findings, EKG paced with nonspecific ST changes with left bundle branch block unchanged from previous, urinalysis with specific remedy 1.025, urine protein 30, urine glucose 250, ketone 5, occult blood 10, negative nitrite, 25 leukocyte esterase with no marked urine WBCs nor bacteria noted. In the ED patient ministered DuoNeb and albuterol therapy. Of note patient was dosed with steroids x 1 IV in [place] he notes. [facility] Medical History Allergic rhinitis Atherosclerotic heart disease of [place] coronary artery without angina pectoris Atrial flutter CAD (coronary artery disease) Carotid artery disease COPD (chronic obstructive pulmonary disease) COVID-19 Essential (primary) hypertension Femoral artery aneurysm, right Hyperlipidemia, unspecified Influenza B Ischemic cardiomyopathy Near syncope Nicotine dependence in remission NSVT (nonsustained ventricular tachycardia) Obesity BHARAT (obstructive sleep apnea) Peripheral vascular disease Shortness of breath T-cell lymphoma Home Medications ramipril 10 mg capsule 10 mg PO BID blood pressure 12/25/13 [History Last Taken 02/13/21] fluticasone propionate 50 mcg/actuation nasal spray,suspension (Flonase Allergy Relief) 50 mcg intranasal QDAY PRN Congestion 06/25/17 [History Last Taken 02/13/21] atorvastatin 80 mg tablet 80 mg PO QHS cholesterol 08/14/17 [History Last Taken 02/13/21] ipratropium 0.5 mg-albuterol 3 mg (2.5 mg base)/3 mL nebulization soln 3 ml inhalation Q4HWA.RT PRN Sob &/Or Wheezing 09/03/18 [History Last Taken 05/06/20] isosorbide mononitrate 30 mg tablet,extended release 24 hr 30 mg PO BID blood pressure 10/28/19 [History Last Taken 02/13/21] montelukast 10 mg tablet 10 mg PO DAILY allergy 02/17/20 [History Last Taken 02/13/21] amlodipine 10 mg tablet 10 mg PO DAILY blood pressure 05/07/20 [History Last Taken 02/13/21] metformin 500 mg tablet 500 mg PO BID 06/28/20 [History Last Taken 02/13/21] nitroglycerin 0.4 mg sublingual tablet 0.4 mg sublingual Q5M PRN Chest Pain #25 tabs 01/03/21 [Rx Last Taken Unknown] acetaminophen 500 mg tablet (Tylenol Extra Strength) 1,000 mg PO Q6H PRN Pain 02/14/21 [History Last Taken 02/14/21] albuterol sulfate 90 mcg/actuation aerosol inhaler 2 puff inhalation Q4H PRN shortness of breath or wheezing #8.5 grams 02/22/21 [Rx Last Taken Unknown] albuterol sulfate 2.5 mg/3 mL (0.083 %) solution for nebulization 2.5 mg (3 mL) inhalation Q4H PRN #25 vials 06/17/22 [Rx Last Taken Unknown] amiodarone 200 mg tablet 200 mg PO DAILY 07/31/22 [History Last Taken Unknown] apixaban 5 mg tablet (Eliquis) 5 mg PO BID #180 tabs 10/14/22 [Rx Last Taken Unknown] carvedilol 12.5 mg tablet 6.25 mg (1/2 x 12.5 mg) PO BID #180 tabs 12/11/22 [Rx Last Taken Unknown] budesonide-formoterol HFA 160 mcg-4.5 mcg/actuation aerosol inhaler (Symbicort) 2 puff inhalation Q12H #3 device 02/09/23 [Rx Last Taken Unknown] Allergy/AdvReac Type Severity Reaction Status Date / Time ciprofloxacin [From Cipro] Allergy Swelling Verified 04/23/23 13:33 ciprofloxacin HCl Allergy hand Verified 04/23/23 13:33 [From Cipro] Swelling Sulfa (Sulfonamide Allergy Unknown Verified 04/23/23 13:33 Antibiotics) Family History Father Heart disease Cancer Prostate Brother Cancer prostate cancer Surgical History Aortocoronary bypass status (~05/17/12) h/o left TKA History of left knee replacement History of permanent cardiac pacemaker placement History of tonsillectomy Hx of CABG Presence of biventricular implantable cardioverter-defibrillator (ICD) (04/22/12) Presence of other cardiac implants and grafts Presence of stent in coronary artery Social History household members: none Smoking Status: Former smoker pack-years: 75 how long ago did patient quit smokin years ago second hand exposure: No alcohol intake: current alcohol intake frequency: holidays/special occasions only Alcohol type: beer substance use type: does not use caffeine: Yes Type: carbonated beverages Number of servings: 1 ROS ROS Narrative Admission Review of Systems: CONSTITUTIONAL: No weight loss, fever, chills, + weakness or fatigue. HEENT: + congestion, rhinorrhea. Eyes: No visual loss, blurred vision, double vision or yellow sclerae. Ears, Nose, Throat: No hearing loss, sneezing. SKIN: No rash or itching, lesions, wounds. CARDIOVASCULAR: No chest pain, chest pressure or chest discomfort, palpitations, edema, orthopnea, syncopal events. RESPIRATORY: + shortness of breath, cough, No marked sputum, wheezing, hemoptysis. GASTROINTESTINAL: + anorexia,. No nausea, vomiting, diarrhea, abdominal pain, melena, BRBPR. GENITOURINARY: No dysuria, frequency, urgency or retention. NEUROLOGICAL: No dizziness, syncope, paralysis, ataxia, numbness or tingling in the extremities, focal weakness, change in bowel or bladder control, seizure. MUSCULOSKELETAL: + muscle, back pain, joint pain or stiffness. HEMATOLOGIC: No anemia. + Easy bleeding or bruising. LYMPHATICS: No enlarged nodes. No history of splenectomy. PSYCHIATRIC: No history of depression or anxiety. ENDOCRINOLOGIC: No reports of sweating, cold or heat intolerance. No polyuria or polydipsia. ALLERGIES: No history of asthma, hives, eczema or rhinitis. Vital Signs Vital Signs Vital Signs: 04/23/23 13:33 04/23/23 13:32 04/23/23 14:09 Temperature 97.7 F L Temperature Source Temporal Pulse Rate 81 94 Respiratory Rate 26 H 22 H Respiratory Effort Short of Breath Respiratory Depth Shallow Respiratory Pattern Tachypnea Tachypnea Blood Pressure 116/66 Blood Pressure Mean 82 Pulse Ox 94 Oxygen Delivery Method Room Air Room Air 04/23/23 14:32 04/23/23 16:00 04/23/23 17:01 Temperature Temperature Source Pulse Rate 78 64 86 Respiratory Rate 16 14 16 Respiratory Effort Respiratory Depth Respiratory Pattern Blood Pressure 146/64 H 141/64 H 154/64 H Blood Pressure Mean 91 89 94 Pulse Ox 98 93 94 Oxygen Delivery Method Room Air Room Air 04/23/23 17:10 Temperature Temperature Source Pulse Rate 87 Respiratory Rate 18 Respiratory Effort Respiratory Depth Respiratory Pattern Normal Blood Pressure Blood Pressure Mean Pulse Ox Oxygen Delivery Method Weight Weight: 356 lb Body Mass Index (BMI) 40.1 Physical Exam Narrative Physical Examination: General: Awake, alert, oriented x 3 and cooperative, seated upright in the ED bed, fatigued and ill-appearing, NAD. Skin: Normal color, normal turgor, no icterus, no cyanosis. HEENT: AT/NC, EOMI, PERRLA, moderately dry MM, no carotid bruits or JVD noted. Lungs: Diffusely diminished, greater bases,no evidence of any distress, no rales, ronchi or wheezing. Heart: Regular/paced; no gallop, rub audible. Abdomen: Soft, morbidly obese, no obvious TTP, unable to discern distention given habitus, distant hyperactive bowel sounds, unable to discern HSM secondary to habitus. Extremities: No cyanosis, clubbing, or edema. Neurological: Patient awake, alert, oriented as noted, cognitive function intact; pupils equally reactive to light and accommodation, cranial nerves II-XII grossly normal, moving all 4 extremities, no focal deficits, strength moderately to severely global decrease secondary to acute presentation. Psychiatric: Affect appears fatigued, ill-appearing, no acute evidence of depressive or anxiety feelings. Results Lab / Micro Data 04/23/23 14:06 04/23/23 14:06 Labs: Laboratory Results - last 24 hr 04/23/23 14:06: WBC 19.0 H, RBC 4.59 L, Hgb 14.0, Hct 42.6, MCV 92.8, MCH 30.5, MCHC 32.9, RDW Std Deviation 44.3 H, RDW Coeff of Kip 13.0, Plt Count 183, MPV 10.7, Immature Gran % (Auto) 0.700, Neut % (Auto) 90.6 H, Lymph % (Auto) 2.2 L, [place] % (Auto) 6.2, Eos % (Auto) 0.0, Baso % (Auto) 0.3, Absolute Neuts (auto) 17.2 H, Absolute Lymphs (auto) 0.42 L, Nucleated RBC % 0, Differential Comment COMMENT, PT 18.4 H, INR 1.5, APTT 38.3 H, D-Dimer Quant (PE/DVT) 0.46, Sodium 142, Potassium 3.5, Chloride 109 H, Carbon Dioxide 26.0, Anion Gap 7, BUN 17, Creatinine 1.24, Est GFR (MDRD) Af Amer 72, Est GFR (MDRD) Non-Af 60, BUN/Creatinine Ratio 13.7, Glucose 167 H, Calcium 8.6, Troponin I High Sens 20, B-Natriuretic Peptide 275.5 H 04/23/23 15:13: Urine Color Yellow, Urine Clarity Clear, Urine pH 5.0, Ur Specific [place] 1.025, Urine Protein 30 H, Urine Glucose (UA) 250 H, Urine Ketones 5 H, Urine Occult Blood 10 H, Urine Nitrite Negative, Urine Bilirubin 1 H, Urine Urobilinogen 4 H, Ur Leukocyte Esterase 25 H, Urine RBC 0 SEEN, Urine WBC 0-5 SEEN, Ur Squamous Epith Cells 0 SEEN, Urine Bacteria 0 SEEN, Urine Mucus 0 SEEN 04/23/23 16:35: Troponin I High Sens 19 Radiology Impression Chest X-Ray 04/23/23 15:04 IMPRESSION: No acute thoracic pathology. Electronically Signed: Deniz Lemos MD at 15:33 EDT , Assessment & Plan Assessment/Plan (1) COVID-19: PLAN: Plan The patient is a 77 y/o M w/ PMHx: CAD s/p CABG and PCI, Ischemic cardiomyopathy/HFrEF s/p AICD/pacemaker placement, HTN, HLD, Hx NSVT, PAF/Flutter, T-cell lymphoma, PVD, Obesity, BHARAT, Former tobacco use, COPD with allergic rhinitis, Diabetes mellitus type II who presents to the [facility] ED on 04/23/23 with history of recent diagnosis of COVID seen originally in [place] and also concern at that time per his report of volume overload but declined admission with symptoms eventually worsening prompting ED evaluation at [place]. #1. Adult FTT with Acute Hypoxia secondary to Acute Viral Syndrome, COVID-19 compounded by recent possible ? CHF exacerbation as noted: Will admit to the PCU, maintain on COVID precautions, will maintain on oxygen with wean as tolerated to room air, ATC duoneb therapies, PRN albuterol, HOB, IS parameters, will obtain completion of COVID admission labs including procalcitonin, CRP, CPK, Ferritin, LDH, continue supportive, closely monitor for worsening status for ARDS with pulse dose lasix as needed especially given #2, will initiate and continue IV decadron x 10 doses, given presentation and high risk patient will also initiate IV remdesivir. #2. Ischemic cardiomyopathy/Chronic HFrEF with recent patient reported exacerbation: Last echo noted 01/19/2021 with segmental dysfunction with preserved EF, EF 55%, mildly enlarged LA, trivial MVI, mild to moderate TVI, mild focal AV calcification, RVSP 26 mmHg, diastolic function indeterminate, ICD/pacer leads within the right atrium and right ventricle. Last cardiology evaluation does report history of chronic systolic CHF despite EF of 55% and suspected was likely reduced prior and this is improved. We will continue patient on apixaban, Coreg, lisinopril, statin home regimen, not on any diuretic per current list but clarifying. If necessary will pulse dose with IV Lasix given recent history reported but again appears more dry upon current presentation. May need to hydrate but will hold off aggressive given #1 and #2. #3. Chronic COPD: Complicated by acute presentation with recent COVID illness. Will maintain on oxygen with wean as tolerated to room air, continue ATC duonebs, PRN albuterol, HOB, IS parameters. #4. CAD: Status post PCI and CABG, will continue patient home apixaban, Coreg, lisinopril, statin home regimen. #5. History NSVT: Status post AICD/pacemaker placement. #6. Diabetes mellitus type II: Hold oral home regimen, ADA diet, accu checks w/ ISS. #7. Hypertension: Continue home regimen including ramipril, isosorbide, Coreg, PRN hydralazine. #8. Hyperlipidemia: Continue home statin regimen. #9. PAF/flutter: We will continue patient home amiodarone, Coreg and apixaban regimen. #10. Allergic rhinitis: We will continue patient home Singulair as well as fluticasone home regimen. #11. Obesity: Weight loss and lifestyle changes encouraged. #12. Former tobacco use: Encourage continued tobacco cessation. #13. BHARAT: CPAP nightly encouraged as he states he has not been using because his mask at home has not been fitting well. #14. DVT prophylaxis: We will continue patient home apixaban regimen. #15. CODE status: Patient HCPOA and living will are not in place but he notes his daughter who is present would be his decision-maker if necessary. Discussed CODE status at length including difference between FULL code, DNR-CCA and DNR-CC status. Following discussions about the differences in these status, requested Full Code status. He is also amenable to BiPAP if necessary, Airvo if necessary and amenable to usage of the antiviral regimen which was discussed. Advanced Care Planning Face to Face Time: 16 minutes. Charges/Coding Visit Charges Inpatient E&M: 16063 Init Hosp L3 Procedures Hospitalists Procedures: 43728 Advncd Care Plan 30 Min
[2023-04-23 18:15] LABS: AST(SGOT) 19 U/L (15-37); Alanine Aminotransfer ALT/SGPT 31 U/L (16-61); Albumin, Serum 2.8 g/dL (3.2-5.0); Alkaline Phosphatase 101 U/L (45-117); Bilirubin, Direct 0.36 mg/dL (0.00-0.30); CPK Total, Creatine Kinase 80 U/L (39-308); Ferritin 253 ng/mL (26-388); Globulin 3.8 g/dL (2.2-4.2); Magnesium 2.3 mg/dL (1.6-2.6); Protein, Total 6.6 g/dL (6.4-8.2)
[2023-04-23 18:21] LABS: Procalcitonin 0.17 ng/mL (0.00-0.09)
[2023-04-23 20:00] LABS: Erythrocyte Sedimentation Rate 18 mm/hr (0-20)
[2023-04-23] MEDS: Menthol/Lanolin/Calamine/Znox 113 GM Tube 1 APPLIC TOPICAL (20:39)
[2023-04-23] MEDS: dexAMETHasone 4 MG/ML Vial 6 MG IV (20:39)
[2023-04-23] MEDS: Remdesivir 200 MG in 0.9% Normal Saline (250mL Bag) 210 ML 250 MG IV (20:39)
[2023-04-23] MEDS: Carvedilol 6.25 MG Tablet PO (20:40)
[2023-04-23] MEDS: Ramipril 10 MG Capsule PO (20:40)
[2023-04-23] MEDS: APIXABAN 5 MG TABLET PO (20:40)
[2023-04-23] MEDS: Atorvastatin Calcium 80 MG Tablet PO (20:41)
[2023-04-23] MEDS: Isosorbide Mononitrate 30 MG Tablet PO (20:41)
[2023-04-23] MEDS: Insulin Lispro 100 UNIT/ML INSULN.PEN SC (20:55)
[2023-04-23 21:18] LABS: Bedside Glucose 182 mg/dL (74-106)
--- NOTE | 2023-04-23 21:43 | CPS ---
Patient refuses CPAP at this time
[2023-04-24] VITALS (12 sets, daily range): BP systolic 123–140; BP diastolic 63–74; PULSE 68–88; RESP 16–24; TEMP 36.6–36.8; O2SAT 93–98; BMI 31.8
[2023-04-24] MEDS: Insulin Lispro 100 UNIT/ML INSULN.PEN SC ×4 (06:01→20:19)
[2023-04-24 06:21] LABS: Absolute Lymphocyte Count 0.41 X10^3/uL (0.83-4.51); Basophil# 0.03 X10^3/uL; Basophil% 0.2 % (0-1); Hematocrit 40.2 % (40-54); Lymphocyte # 0.41 X10^3/ul (0.83-4.51); Lymphocyte % 2.4 % (19-41); Mean Corp Hgb Conc 32.3 g/dL (32-36); Mean Corpuscular Hgb 30.3 pg (27.0-32.0); Mean Corpuscular Volume 93.7 fL (80-94); Mean Platelet Vol. 10.5 fl (6.2-12.0); Monocyte# 0.51 X10^3/uL; NRBC Flagged by Analyzer 0 % (0-5); Neutrophil # 15.98 X10^3/uL (2.7-7.7); Neutrophil % 93.5 % (47-70); POSITIVE DIFFERENTIAL YES; Platelet Count 188 K/mm3 (150-450); RBC Distribution Width CV 13.3 % (11.6-14.6); RBC Distribution Width SD 45.6 fl (35.1-43.9); Red Blood Count 4.29 M/mm3 (4.6-6.2); White Blood Count 17.1 K/mm3 (4.4-11.0)
[2023-04-24 06:28] LABS: Differential Indicated SCAN CRITERIA MET
[2023-04-24 06:54] LABS: ALB/GLOB Ratio 0.7 RATIO (0.9-2.4); AST(SGOT) 20 U/L (15-37); Alanine Aminotransfer ALT/SGPT 33 U/L (16-61); Albumin, Serum 2.6 g/dL (3.2-5.0); Alkaline Phosphatase 96 U/L (45-117); Anion Gap 5 (5-15); BUN 21 mg/dL (7-18); BUN/Creat Ratio 19.8 RATIO (10-20); Calcium,Total 8.5 mg/dL (8.5-10.1); Chloride 112 mmol/L (98-107); Creatinine, Serum 1.06 mg/dL (0.70-1.30); EST Glomerular Filtration Rate 72 mL/min (>60); Est Glom Filt Rate - Afr Amer 87 mL/min (>60); Estimated Creatinine Clearance 52.83 ml/min; Globulin 3.8 g/dL (2.2-4.2); Glucose 193 mg/dL (74-106); Potassium 3.9 mmol/L (3.5-5.1); Protein, Total 6.4 g/dL (6.4-8.2); Sodium Level 142 mmol/L (136-145)
[2023-04-24 07:18] LABS: Bedside Glucose 173 mg/dL (74-106)
[2023-04-24] MEDS: Ipratropium/Albuterol Sulfate 3 ML AMPUL.NEB INHALATION ×4 (07:30→19:35)
[2023-04-24] MEDS: dexAMETHasone 4 MG/ML Vial 6 MG IV (08:39)
[2023-04-24] MEDS: 0.9% Saline Lock 10 ML Syringe IV ×2 (08:43→22:53)
[2023-04-24] MEDS: APIXABAN 5 MG TABLET PO ×2 (10:01→20:20)
[2023-04-24] MEDS: Carvedilol 6.25 MG Tablet PO ×2 (10:01→20:20)
[2023-04-24] MEDS: Ramipril 10 MG Capsule PO ×2 (10:01→22:53)
[2023-04-24] MEDS: amLODIPine 10 MG Tablet PO (10:01)
[2023-04-24] MEDS: Isosorbide Mononitrate 30 MG Tablet PO ×2 (10:01→20:20)
[2023-04-24] MEDS: Amiodarone 200 MG Tablet PO (10:01)
[2023-04-24] MEDS: Montelukast 10 MG Tablet PO (10:01)
[2023-04-24 13:07] LABS: Bedside Glucose 244 mg/dL (74-106)
--- NOTE | 2023-04-24 13:55 | CASEMGMT ---
RN?CM?SECURITY INTERN?CM?to room to meet with patient for initial transition planning/care coordination?assessment.?RN?CM?introduced self and role at [facility].? Pt voices understanding and consents to?assessment?at this time.? Pt sitting on edge of bed in no distress at this time.? Pt is A/O at this time and answers all questions appropriately.?? Care providers, pharmacy, and demographics verified/updated at this time. PCP: Dr Velez Specialists: NELLI/cardiology, Dr Slaughter and Angella Garcia/[employer]-pulmonology Preferred Pharmacy: [facility] @ discharge. Otherwise, [facility] in [place] Insurance: [facility], A[employer] Prescription Benefit:?Yes Living Will/HPOA:? Pt does not currently have LW/HCPOA and declines info at this time.? Pt made aware that he can contact as an out-pt and make appt in the future if he decides he would like to talk with someone about this or would like to utilize [facility] social work for advanced directive completion.? LNOK: Daughter, Klaudia. Son, Thang. Friend, Sharri Living Arrangements: Lives alone in ground-floor apt w/2 steps to enter. Independent w/ADL's, IADL's, and manages his own medications. Transportation:?Pt states drives self and states no transportation concerns at this time.? Family will take him home @ discharge. DME: ?States has the following DME:?functioning glucometer w/supplies, nebulizer, pulse ox, O2 @ 2.5 L/M @ HS. Pt only has a concentrator, he does not have portable O2. Pt also has a walker available, but does not use. Pt states no need for further DME at this time.? HHC/SNF: No hx of either. Denies need for HHC. Pt wishes to return home and states has no concerns with going home at time of discharge.? CM?to follow forany increase in home oxygen needs and any further discharge planning/needs.? Pt voices no further concerns/needs at this time.? Advised pt to ask for?CM?if any further questions/concerns/needs arise.? Voices understanding. PLAN:??Home Follow for possible increase in home O2. Elham MONTILLAN?RN?CM
[2023-04-24] MEDS: guaiFENesin 10 ML UDC (200MG/10ML) 20 ML PO ×2 (15:05→20:21)
--- NOTE | 2023-04-24 16:28 | PCM.PN.HOSP ---
Reason for Visit Reason for Visit: Diagnoses COVID-19 (04/23/23) Subjective Subjective Patient seen at bedside this morning. Sitting comfortably in bed, conversing normally, no acute distress. Did have multiple episodes of significant coughing during my interview. Reports mild musculoskeletal chest pain with coughing. Cough is dry, no sputum production. Patient denies any fevers or chills morning. Currently satting in mid 90s on 2 L nasal cannula, no increased work of breathing noted. Denies any body aches. Denies any abdominal pain. No other acute concerns this morning. Objective Data Objective Data Vital Signs: Vital Signs Temp Pulse Resp BP Pulse Ox O2 Del Method O2 Flow Rate 98 F 68 21 H 140/63 H 97 Nasal Cannula 2 04/24/23 12:46 04/24/23 14:15 04/24/23 14:15 04/24/23 12:46 04/24/23 12:46 04/24/23 12:46 04/24/23 09:00 Oxygen Flow Rate (L/min) 2 Oxygen Delivery Method Nasal Cannula Weight: 92.3 kg Body Mass Index (BMI) 31.8 Intake & Output: Intake and Output for Last 24 Hours 04/22/23 04/23/23 04/24/23 23:59 23:59 23:59 Intake Total 250 / 250 1050 / 1050 Balance 250 / 250 1050 / 1050 Lab / Micro Data 04/24/23 06:10 04/24/23 06:10 Labs: Laboratory Results - last 24 hr 04/23/23 16:35: Magnesium 2.3, Ferritin 253, Total Bilirubin 0.90, Direct Bilirubin 0.36 H, AST 19, ALT 31, Alkaline Phosphatase 101, Total Creatine Kinase 80, Troponin I High Sens 19, C-React Prot Ext Range 87.10 H, Total Protein 6.6, Albumin 2.8 L, Globulin 3.8 04/23/23 17:40: Procalcitonin 0.17 H 04/23/23 19:45: ESR 18 04/23/23 20:49: POC Glucose 182 H 04/24/23 05:49: POC Glucose 173 H 04/24/23 06:10: WBC 17.1 H, RBC 4.29 L, Hgb 13.0, Hct 40.2, MCV 93.7, MCH 30.3, MCHC 32.3, RDW Std Deviation 45.6 H, RDW Coeff of Kip 13.3, Plt Count 188, MPV 10.5, Immature Gran % (Auto) 0.900, Neut % (Auto) 93.5 H, Lymph % (Auto) 2.4 L, [place] % (Auto) 3.0, Eos % (Auto) 0.0, Baso % (Auto) 0.2, Absolute Neuts (auto) 16.0 H, Absolute Lymphs (auto) 0.41 L, Nucleated RBC % 0, Sodium 142, Potassium 3.9, Chloride 112 H, Carbon Dioxide 25.0, Anion Gap 5, BUN 21 H, Creatinine 1.06, Estim Creat Clear Calc 52.83, Est GFR (MDRD) Af Amer 87, Est GFR (MDRD) Non-Af 72, BUN/Creatinine Ratio 19.8, Glucose 193 H, Calcium 8.5, Total Bilirubin 0.50, AST 20, ALT 33, Alkaline Phosphatase 96, Total Protein 6.4, Albumin 2.6 L, Globulin 3.8, Albumin/Globulin Ratio 0.7 L 04/24/23 12:30: POC Glucose 244 H Physical Exam Const alert, oriented x3 and no apparent distress Constitutional Narrative: Pleasant elderly male, obese, sitting comfortably in bed, conversing normally, mildly fatigued appearing, otherwise no acute distress. General Appearance: cooperative and comfortable HEENT normocephalic, head/scalp atraumatic, hearing grossly normal bilaterally, nasal mucous membranes and turbinates normal and moist oral mucous membranes Eyes PERRL, EOMs intact bilaterally and conjunctivae normal Neck full ROM, no lymphadenopathy and supple Lymph Lymphatic: no lymphadenopathy noted Chest inspection of chest normal Resp Resp Narrative: Satting in mid 90s on 2 L nasal cannula, no increased work of breathing noted. Mild to moderate wheezing noted bilaterally in upper airways. Multiple coughing fits during my interview today. No crackles noted. Cardio regular rate, regular rhythm, no murmurs and peripheral pulses 2+ throughout GI normal to inspection, nondistended, normoactive bowel sounds, soft to palpation, non-tender and non-distended Back/Spine normal ROM Extremity normal to inspection, full ROM and no pedal edema Skin no rashes or lesions noted Psych mental status grossly normal Assessment & Plan Assessment/Plan (1) COVID-19: PLAN: Plan Patient is a 77-year-old male with history of COPD not on home O2, former tobacco use, CAD s/p CABG and PCI, HFrEF s/p AICD/pacemaker placement, hypertension, PAF/flutter, T-cell lymphoma, type 2 diabetes and recent COVID diagnosis at [facility] who presented to [facility] ED on 04/23/2023 with worsening COVID symptoms. 1. Acute on chronic hypoxic respiratory failure, COVID?19 infection, history of COPD with allergic rhinitis COVID-19 positive at outside hospital on 04/23. Symptom onset on Friday 04/20. Not vaccinated for COVID. History of COPD secondary to smoking (former smoker). Does not wear oxygen at home. Oxygen saturation notably dropped to below 88% with ambulation on room air. Chest x-ray on admit showed no acute thoracic pathology. Labs on admit notable for WBC count 19, CRP 87, procalcitonin 0.17. ? Treating COVID-19 infection with IV Decadron and remdesivir. Plan for 5-day course of remdesivir (stop date 04/27) and 10-day course of Decadron (stop date 05/02). Wean supplemental oxygen as able. We will plan for home O2 walk test prior to discharge to determine if patient needs oxygen on discharge. Scheduled DuoNebs every 4 hours for now, will plan to de-escalate to DuoNebs as needed tomorrow. Continue home long-acting inhaler and Singulair. Incentive spirometry. Scheduled guaifenesin for cough. 2. Acute debility Patient lives on his own at home, good functional status at baseline. Is somewhat debilitated currently due to COVID infection with mild COPD exacerbation. ? PT/OT/case management following. Likely home on discharge +/- home health care if patient qualifies. Chronic medical conditions: ? Heart failure with recovered ejection fraction, CAD: Last echo 01/2021 with EF 55%, mildly enlarged LA, RVSP 26 mmHg, diastolic function indeterminant. Appeared euvolemic to mildly hypovolemic on admission. Not on diuretics at home. Continue home apixaban, Coreg, lisinopril, statin. ? Hypertension: Continue home ramipril, isosorbide, Coreg, as needed hydralazine. ? PAF/flutter: Continue home amiodarone, Coreg, Eliquis. ? Type 2 diabetes: On home metformin 5 mg twice daily. Sliding scale insulin while inpatient. DVT prophylaxis: Eliquis CODE STATUS: Full code, verified Expected disposition: Home, 1 to 2 days Total clinical time spent by myself addressing the patient's medical issues, reviewing all the data, and collaborating with patient's care team: 35 minutes. Charges/Coding Visit Charges Inpatient E&M: 73985 Subs Hosp L2
[2023-04-24 17:14] LABS: Bedside Glucose 330 mg/dL (74-106)
[2023-04-24] MEDS: Atorvastatin Calcium 80 MG Tablet PO (20:20)
[2023-04-24 20:47] LABS: Bedside Glucose 253 mg/dL (74-106)
[2023-04-24] MEDS: Remdesivir 100 MG in 0.9% Normal Saline (250mL Bag) 230 ML 250 MG IV (22:53)
[2023-04-25] VITALS (11 sets, daily range): BP systolic 133–156; BP diastolic 74–85; PULSE 61–84; RESP 18–20; TEMP 36.6–37.3; O2SAT 92–98; BMI 31.9
[2023-04-25] MEDS: guaiFENesin 10 ML UDC (200MG/10ML) 20 ML PO ×4 (02:27→20:25)
[2023-04-25] MEDS: Insulin Lispro 100 UNIT/ML INSULN.PEN SC ×4 (06:41→20:28)
[2023-04-25 07:05] LABS: Bedside Glucose 166 mg/dL (74-106)
[2023-04-25] MEDS: Ipratropium/Albuterol Sulfate 3 ML AMPUL.NEB INHALATION ×4 (07:07→20:35)
[2023-04-25 07:19] LABS: Hematocrit 36.6 % (40-54); Hemoglobin 12.4 g/dL (13.0-16.5); Mean Corp Hgb Conc 33.9 g/dL (32-36); Mean Corpuscular Hgb 31.4 pg (27.0-32.0); Mean Corpuscular Volume 92.7 fL (80-94); Mean Platelet Vol. 10.6 fl (6.2-12.0); Platelet Count 169 K/mm3 (150-450); RBC Distribution Width CV 13.2 % (11.6-14.6); RBC Distribution Width SD 45.1 fl (35.1-43.9); Red Blood Count 3.95 M/mm3 (4.6-6.2); White Blood Count 13.8 K/mm3 (4.4-11.0)
[2023-04-25 07:47] LABS: Anion Gap 4 (5-15); BUN 24 mg/dL (7-18); BUN/Creat Ratio 23.8 RATIO (10-20); Calcium,Total 8.3 mg/dL (8.5-10.1); Chloride 110 mmol/L (98-107); Creatinine, Serum 1.01 mg/dL (0.70-1.30); EST Glomerular Filtration Rate 76 mL/min (>60); Est Glom Filt Rate - Afr Amer 92 mL/min (>60); Estimated Creatinine Clearance 55.45 ml/min; Glucose 178 mg/dL (74-106); Potassium 3.8 mmol/L (3.5-5.1); Sodium Level 142 mmol/L (136-145)
[2023-04-25] MEDS: Isosorbide Mononitrate 30 MG Tablet PO ×2 (10:40→20:27)
[2023-04-25] MEDS: amLODIPine 10 MG Tablet PO ×2 (10:40→10:41)
[2023-04-25] MEDS: Amiodarone 200 MG Tablet PO (10:41)
[2023-04-25] MEDS: Carvedilol 6.25 MG Tablet PO ×2 (10:41→22:44)
[2023-04-25] MEDS: dexAMETHasone 4 MG/ML Vial 6 MG IV (10:42)
[2023-04-25] MEDS: APIXABAN 5 MG TABLET PO ×2 (10:42→20:26)
[2023-04-25] MEDS: Montelukast 10 MG Tablet PO (10:42)
[2023-04-25] MEDS: Ramipril 10 MG Capsule PO ×2 (10:43→20:27)
[2023-04-25 11:31] LABS: Bedside Glucose 266 mg/dL (74-106)
--- NOTE | 2023-04-25 15:06 | PCM.PN.HOSP ---
Reason for Visit Reason for Visit: Diagnoses COVID-19 (04/23/23) Subjective Subjective Patient seen at bedside this morning. Sitting comfortably in bed, conversing normally, no acute distress. Patient states that his cough is much improved from yesterday. Currently satting in the mid 90s on 2 L nasal cannula. States that he does have an oxygen concentrator at home and wears 2 to 3 L of oxygen at night, but he does not have any portable oxygen at home. Patient was able to independently ambulate around the room yesterday and this morning, declined home health care services going home. Patient does report some jitteriness and had difficulty sleeping last night which he attributes to the steroids. He does feel his breathing and wheezing are improved from yesterday with steroids and breathing treatments. He denies any fevers or chills. Denies any other pain or discomfort. No other acute concerns currently. Objective Data Objective Data Vital Signs: Vital Signs Temp Pulse Resp BP Pulse Ox O2 Del Method O2 Flow Rate 99.1 F 84 19 H 138/75 H 92 Nasal Cannula 2 04/25/23 10:00 04/25/23 14:45 04/25/23 14:45 04/25/23 10:00 04/25/23 11:10 04/25/23 11:00 04/25/23 11:00 Oxygen Flow Rate (L/min) 2 Oxygen Delivery Method Nasal Cannula Weight: 92.3 kg Body Mass Index (BMI) 31.9 Intake & Output: Intake and Output for Last 24 Hours 04/23/23 04/24/23 04/25/23 23:59 23:59 23:59 Intake Total 250 / 250 1570 / 1570 950 / 950 Balance 250 / 250 1570 / 1570 950 / 950 Lab / Micro Data 04/25/23 06:55 04/25/23 06:55 Labs: Laboratory Results - last 24 hr 04/24/23 16:47: POC Glucose 330 H 04/24/23 20:13: POC Glucose 253 H 04/25/23 06:39: POC Glucose 166 H 04/25/23 06:55: WBC 13.8 H, RBC 3.95 L, Hgb 12.4 L, Hct 36.6 L, MCV 92.7, MCH 31.4, MCHC 33.9, RDW Std Deviation 45.1 H, RDW Coeff of Kip 13.2, Plt Count 169, MPV 10.6, Sodium 142, Potassium 3.8, Chloride 110 H, Carbon Dioxide 28.0, Anion Gap 4 L, BUN 24 H, Creatinine 1.01, Estim Creat Clear Calc 55.45, Est GFR (MDRD) Af Amer 92, Est GFR (MDRD) Non-Af 76, BUN/Creatinine Ratio 23.8 H, Glucose 178 H, Calcium 8.3 L 04/25/23 11:08: POC Glucose 266 H Physical Exam Const alert, oriented x3 and no apparent distress Constitutional Narrative: Pleasant elderly male, obese, sitting comfortably in bed, conversing normally, mildly fatigued appearing, otherwise no acute distress. General Appearance: cooperative and comfortable HEENT normocephalic, head/scalp atraumatic, hearing grossly normal bilaterally, nasal mucous membranes and turbinates normal and moist oral mucous membranes Eyes PERRL, EOMs intact bilaterally and conjunctivae normal Neck full ROM, no lymphadenopathy and supple Lymph Lymphatic: no lymphadenopathy noted Chest inspection of chest normal Resp Resp Narrative: Satting mid 90s on 2 L nasal cannula, no increased work of breathing noted. Mild wheezing noted in upper airways, improved from yesterday. No coughing during my interview today. No crackles noted. Cardio regular rate, regular rhythm, no murmurs and peripheral pulses 2+ throughout GI normal to inspection, nondistended, normoactive bowel sounds, soft to palpation, non-tender and non-distended Back/Spine normal ROM Extremity normal to inspection, full ROM and no pedal edema Skin no rashes or lesions noted Psych mental status grossly normal Assessment & Plan Assessment/Plan (1) COVID-19: PLAN: Plan Patient is a 77-year-old male with history of COPD not on home O2, former tobacco use, CAD s/p CABG and PCI, HFrEF s/p AICD/pacemaker placement, hypertension, PAF/flutter, T-cell lymphoma, type 2 diabetes and recent COVID diagnosis at [facility] who presented to [facility] ED on 04/23/2023 with worsening COVID symptoms. 1. Acute on chronic hypoxic respiratory failure, COVID?19 infection, history of COPD with allergic rhinitis COVID-19 positive at outside hospital on 04/23. Symptom onset on Friday 04/20. Not vaccinated for COVID. History of COPD secondary to smoking (former smoker). Does not wear oxygen at home. Oxygen saturation notably dropped to below 88% with ambulation on room air. Chest x-ray on admit showed no acute thoracic pathology. Labs on admit notable for WBC count 19, CRP 87, procalcitonin 0.17. ? Treating COVID-19 infection with IV Decadron and remdesivir. Plan for 5-day course of remdesivir (stop date 04/27) and 10-day course of Decadron (stop date 05/02). Wean supplemental oxygen as able. We will plan for home O2 walk test prior to discharge to determine if patient needs oxygen on discharge. Scheduled DuoNebs every 4 hours for now, will plan to de-escalate to DuoNebs as needed tomorrow. Continue home long-acting inhaler and Singulair. Incentive spirometry. Scheduled guaifenesin for cough. 2. Acute debility Patient lives on his own at home, good functional status at baseline. Is somewhat debilitated currently due to COVID infection with mild COPD exacerbation. ? PT/OT/case management following. Patient was noted to ambulate independently around the room without significant issue, and he declined home health care services. Will be okay for home without any needs on discharge, anticipating discharge tomorrow. Chronic medical conditions: ? Heart failure with recovered ejection fraction, CAD: Last echo 01/2021 with EF 55%, mildly enlarged LA, RVSP 26 mmHg, diastolic function indeterminant. Appeared euvolemic to mildly hypovolemic on admission. Not on diuretics at home. Continue home apixaban, Coreg, lisinopril, statin. ? Hypertension: Continue home ramipril, isosorbide, Coreg, as needed hydralazine. ? PAF/flutter: Continue home amiodarone, Coreg, Eliquis. ? Type 2 diabetes: On home metformin 5 mg twice daily. Sliding scale insulin while inpatient. DVT prophylaxis: Eliquis CODE STATUS: Full code, verified Expected disposition: Home, 1 to 2 days Total clinical time spent by myself addressing the patient's medical issues, reviewing all the data, and collaborating with patient's care team: 35 minutes. Charges/Coding Visit Charges Inpatient E&M: 11185 Subs Hosp L2
[2023-04-25] MEDS: BENZOCAINE/MENTHOL 1 LOZENGE MUCOUS MEM ×2 (16:42→20:27)
[2023-04-25] MEDS: Acetaminophen 325 MG Tablet 650 MG PO (16:42)
[2023-04-25] MEDS: Fluticasone 0.05% 1 SPRAY NASAL.SRY NASAL (16:52)
[2023-04-25 19:24] LABS: Bedside Glucose 290 mg/dL (74-106)
[2023-04-25] MEDS: Atorvastatin Calcium 80 MG Tablet PO (20:27)
[2023-04-25 21:01] LABS: Bedside Glucose 276 mg/dL (74-106)
[2023-04-25] MEDS: 0.9% Saline Lock 10 ML Syringe IV (22:44)
[2023-04-25] MEDS: Remdesivir 100 MG in 0.9% Normal Saline (250mL Bag) 230 ML 250 MG IV (22:44)
[2023-04-26] VITALS (9 sets, daily range): BP systolic 137–151; BP diastolic 64–82; PULSE 70–84; RESP 18–22; TEMP 36.9–37.2; O2SAT 88–95
[2023-04-26] MEDS: guaiFENesin 10 ML UDC (200MG/10ML) 20 ML PO ×2 (02:52→08:39)
[2023-04-26] MEDS: Insulin Lispro 100 UNIT/ML INSULN.PEN SC ×2 (06:40→11:51)
[2023-04-26 07:04] LABS: Bedside Glucose 204 mg/dL (74-106)
[2023-04-26] MEDS: Ipratropium/Albuterol Sulfate 3 ML AMPUL.NEB INHALATION ×2 (07:08→10:44)
[2023-04-26] MEDS: Carvedilol 6.25 MG Tablet PO (08:40)
[2023-04-26] MEDS: Acetaminophen 325 MG Tablet 650 MG PO (08:40)
[2023-04-26] MEDS: Montelukast 10 MG Tablet PO (08:40)
[2023-04-26] MEDS: APIXABAN 5 MG TABLET PO (08:41)
[2023-04-26] MEDS: Isosorbide Mononitrate 30 MG Tablet PO (08:41)
[2023-04-26] MEDS: dexAMETHasone 4 MG/ML Vial 6 MG IV (08:41)
[2023-04-26] MEDS: Ramipril 10 MG Capsule PO (08:41)
[2023-04-26] MEDS: Fluticasone 0.05% 1 SPRAY NASAL.SRY NASAL (08:42)
[2023-04-26] MEDS: Amiodarone 200 MG Tablet PO (08:49)
--- NOTE | 2023-04-26 11:24 | DCINST_ITS ---
Discharge Instructions Diet Discharge Diet: No restrictions Activity Discharge Activity: Return to Normal Activity Weight Bearing Status: Full weight bearing Follow Up Care Please Follow Up With: Fito Velez MD When: As needed Test Results: Test results from this visit will be discussed in further detail at your follow- up appointment, if applicable. Pending Tests Upon Discharge: None Discharge Plan Admission Admit Date/Time: 04/23/23 17:30 Primary Reason for Your Visit: COVID-19 pneumonia Attending Provider: Facundo Schmidt Primary Care Provider: Fito Velez Consulting Providers: Tamar Apodaca Instructions Additional Instructions / Restrictions: Please take prednisone 40 mg daily for the next 6 days to complete a 10-day course of steroids for your COVID-19 infection. Otherwise, continue to take all other home medications as to have been. Your goal oxygen saturation is 88%, please wear oxygen at home to ensure your oxygen level stays higher than this. Follow-up with your primary care doctor as needed. Discharge Orders/Prescriptions Prescriptions: New prednisone 20 mg tablet 40 mg PO DAILY 6 Days Qty: 12 0RF Continued fluticasone propionate [Flonase Allergy Relief] 50 mcg/actuation spray,suspension 50 mcg INTRANASAL QDAY PRN (Reason: Congestion) ipratropium-albuterol 0.5 mg-3 mg(2.5 mg base)/3 mL solution for nebulization 3 ml INHALATION Q4HWA.RT PRN (Reason: Sob &/Or Wheezing) isosorbide mononitrate 30 mg tablet extended release 24 hr 30 mg PO BID montelukast 10 mg tablet 10 mg PO DAILY nitroglycerin 0.4 mg tablet, sublingual 0.4 mg SUBLINGUAL Q5M PRN (Reason: Chest Pain) Qty: 25 3RF metformin 500 mg tablet 500 mg PO BID amiodarone 200 mg tablet 200 mg PO DAILY ramipril 10 MG capsule 10 mg PO BID atorvastatin 80 MG tablet 80 mg PO QHS amlodipine 10 MG tablet 10 mg PO DAILY albuterol sulfate 2.5 mg /3 mL (0.083 %) solution for nebulization 2.5 mg inhalation Q4H PRN Qty: 25 0RF Rx Instructions: Use q4 hours and PRN for wheezing carvedilol 12.5 mg tablet 12.5 mg PO BID Eliquis 5 mg tablet 5 mg PO BID Qty: 180 3RF budesonide-formoterol [Symbicort] 160-4.5 mcg/actuation HFA aerosol inhaler 2 puff INHALATION Q12H Qty: 3 3RF Changed acetaminophen [Tylenol Extra Strength] 500 mg Tablet 1,000 mg PO Q8H PRN PRN (Reason: Pain) Qty: 30 0RF Referrals / Follow Up: Fito Velez MD [Primary Care Provider] - Disposition Disposition (needs filled in before D/C Order can be placed): Home, Self Care
--- NOTE | 2023-04-26 11:30 | DS.PCM_ITS ---
Providers Date of Admission: 04/23/23 Date of Discharge: 04/26/23 Primary Care Physician: Dr. Fito Velez MD Reason For Visit: HYPOXIA, COVID-19 Diagnosis Discharge Diagnosis (1) COVID-19: Status: Acute Code(s): U07.1 - COVID-19 Medications at Discharge Home Medications ramipril 10 mg capsule 10 mg PO BID blood pressure 12/25/13 fluticasone propionate 50 mcg/actuation nasal spray,suspension (Flonase Allergy Relief) 50 mcg intranasal QDAY PRN Congestion 06/25/17 atorvastatin 80 mg tablet 80 mg PO QHS cholesterol 08/14/17 ipratropium 0.5 mg-albuterol 3 mg (2.5 mg base)/3 mL nebulization soln 3 ml inhalation Q4HWA.RT PRN Sob &/Or Wheezing 09/03/18 isosorbide mononitrate 30 mg tablet,extended release 24 hr 30 mg PO BID blood pressure 10/28/19 montelukast 10 mg tablet 10 mg PO DAILY allergy 02/17/20 amlodipine 10 mg tablet 10 mg PO DAILY blood pressure 05/07/20 metformin 500 mg tablet 500 mg PO BID blood glucose 06/28/20 nitroglycerin 0.4 mg sublingual tablet 0.4 mg sublingual Q5M PRN Chest Pain #25 tabs 01/03/21 albuterol sulfate 2.5 mg/3 mL (0.083 %) solution for nebulization 2.5 mg (3 mL) inhalation Q4H PRN #25 vials 06/17/22 amiodarone 200 mg tablet 200 mg PO DAILY heart 07/31/22 apixaban 5 mg tablet (Eliquis) 5 mg PO BID #180 tabs 10/14/22 budesonide-formoterol HFA 160 mcg-4.5 mcg/actuation aerosol inhaler (Symbicort) 2 puff inhalation Q12H #3 device 02/09/23 carvedilol 12.5 mg tablet 12.5 mg PO BID 04/23/23 acetaminophen 500 mg tablet (Tylenol Extra Strength) 1,000 mg (2 x 500 mg) PO Q8H PRN PRN Pain #30 tabs 04/26/23 prednisone 20 mg tablet 40 mg (2 x 20 mg) PO DAILY 6 days #12 tabs 04/26/23 Hospital Course Operations None Procedures EKG and - (Chest x-ray) Summary of Care Provided Minutes Spent on Discharge: 35 Hospital Course: Patient is a 77-year-old male with history of COPD not on home O2, former tobacco use, CAD s/p CABG and PCI, HFrEF s/p AICD/pacemaker placement, hypertension, PAF/flutter, T-cell lymphoma, type 2 diabetes and recent COVID diagnosis at [facility] who presented to [facility] ED on 04/23/2023 with worsening COVID symptoms. Multiple medical conditions addressed during hospitalization as noted below. Acute on chronic hypoxic respiratory failure, improving; COVID-19 infection; history of COPD with allergic rhinitis: COVID-19 positive at outside hospital on 04/23. Symptom onset on Friday 04/20. Not vaccinated for COVID. History of COPD secondary to smoking (former smoker). Does not wear oxygen at home. Oxygen saturation notably dropped to below 88% with ambulation on room air. Chest x-ray on admit showed no acute thoracic pathology. Labs on admit notable for WBC count 19, CRP 87, procalcitonin 0.17. Treated patient's COVID-19 infection while inpatient with IV Decadron and remdesivir. Patient had some wh eezing during admission, treated with scheduled DuoNebs every 4 hours for first 2 days of admission with improvement. Patient did have his oxygen saturations drop below 88% with exertion prior to discharge, qualified for 2 L nasal cannula of oxygen on discharge. Will complete 10-day course of steroids with IV prednisone 40 mg daily through 05/02. Continue home long-acting inhaler and Singulair on discharge. Continue albuterol inhaler as needed at home. Acute debility, improving: Patient lives on his own at home, has good functional status at baseline. Was somewhat debilitated in hospital due to COVID infection with mild COPD exacerbation. However, he was able to ambulate around the room on his own without issue and declined home health care services on discharge. Was stable for discharge home without any needs. Discharge diagnoses: ? Acute on chronic hypoxic respiratory failure, improving ? COVID-19 infection ? Acute debility, improving Total clinical time spent by myself addressing the patient's discharge needs: 35 minutes. Physical Exam Const alert, oriented x3 and no apparent distress Constitutional Narrative: Pleasant elderly male, obese, sitting comfortably in bed, conversing normally, mildly fatigued appearing, otherwise no acute distress. General Appearance: cooperative and comfortable HEENT normocephalic, head/scalp atraumatic, hearing grossly normal bilaterally, nasal mucous membranes and turbinates normal and moist oral mucous membranes Eyes PERRL, EOMs intact bilaterally and conjunctivae normal Neck full ROM, no lymphadenopathy and supple Lymph Lymphatic: no lymphadenopathy noted Chest inspection of chest normal Resp Resp Narrative: Satting mid 90s on 2 L nasal cannula, no increased work of breathing noted. Mild wheezing noted in upper airways, improved from yesterday. No coughing during my interview today. No crackles noted. Cardio regular rate, regular rhythm, no murmurs and peripheral pulses 2+ throughout GI normal to inspection, nondistended, normoactive bowel sounds, soft to palpation, non-tender and non-distended Back/Spine normal ROM Extremity normal to inspection, full ROM and no pedal edema Skin no rashes or lesions noted Psych mental status grossly normal Weight / BMI Weight Weight: 92.3 kg Body Mass Index (BMI) 31.9 ABG / Lab / Microbiology Data 04/25/23 06:55 04/25/23 06:55 Laboratory: Laboratory Results - last 24 hr 04/25/23 11:08: POC Glucose 266 H 04/25/23 16:27: POC Glucose 290 H 04/25/23 20:21: POC Glucose 276 H 04/26/23 06:37: POC Glucose 204 H D/C Instructions Discharge Diet: No restrictions Weight Bearing Status: Full weight bearing Pending Tests Upon Discharge: None Please Follow Up With: Fito Velez MD When: As needed Meaningful Use Info Meaningful Use Diagnoses (Choose all that apply): None applicable Discharge Plan Admission Admit Date/Time: 04/23/23 17:30 Primary Reason for Your Visit: COVID-19 pneumonia Attending Provider: Facundo Schmidt Primary Care Provider: Fito Velez Consulting Providers: Tamar Apodaca Instructions Additional Instructions / Restrictions: Please take prednisone 40 mg daily for the next 6 days to complete a 10-day course of steroids for your COVID-19 infection. Otherwise, continue to take all other home medications as to have been. Your goal oxygen saturation is 88%, ple ase wear oxygen at home to ensure your oxygen level stays higher than this. Follow-up with your primary care doctor as needed. Discharge Orders/Prescriptions Prescriptions: New prednisone 20 mg tablet 40 mg PO DAILY 6 Days Qty: 12 0RF Continued fluticasone propionate [Flonase Allergy Relief] 50 mcg/actuation spray,suspension 50 mcg INTRANASAL QDAY PRN (Reason: Congestion) ipratropium-albuterol 0.5 mg-3 mg(2.5 mg base)/3 mL solution for nebulization 3 ml INHALATION Q4HWA.RT PRN (Reason: Sob &/Or Wheezing) isosorbide mononitrate 30 mg tablet extended release 24 hr 30 mg PO BID montelukast 10 mg tablet 10 mg PO DAILY nitroglycerin 0.4 mg tablet, sublingual 0.4 mg SUBLINGUAL Q5M PRN (Reason: Chest Pain) Qty: 25 3RF metformin 500 mg tablet 500 mg PO BID amiodarone 200 mg tablet 200 mg PO DAILY ramipril 10 MG capsule 10 mg PO BID atorvastatin 80 MG tablet 80 mg PO QHS amlodipine 10 MG tablet 10 mg PO DAILY albuterol sulfate 2.5 mg /3 mL (0.083 %) solution for nebulization 2.5 mg inhalation Q4H PRN Qty: 25 0RF Rx Instructions: Use q4 hours and PRN for wheezing carvedilol 12.5 mg tablet 12.5 mg PO BID Eliquis 5 mg tablet 5 mg PO BID Qty: 180 3RF budesonide-formoterol [Symbicort] 160-4.5 mcg/actuation HFA aerosol inhaler 2 puff INHALATION Q12H Qty: 3 3RF Changed acetaminophen [Tylenol Extra Strength] 500 mg Tablet 1,000 mg PO Q8H PRN PRN (Reason: Pain) Qty: 30 0RF Referrals / Follow Up: Fito Velez MD [Primary Care Provider] - 05/26/23 8:20 am (Please arrive to appointment 08:05 AM) Disposition Disposition (needs filled in before D/C Order can be placed): Home, Self Care Charges/Coding Visit Charges Inpatient E&M: 08762 Disch Hosp >30min
[2023-04-26 12:12] LABS: Bedside Glucose 277 mg/dL (74-106)
--- NOTE | 2023-04-26 12:15 | CASEMGMT ---
Pt. qualifies for increased oxygen. Script sent to [employer] via [employer]. Pt. up independently in room. Discharge today.
--- NOTE | 2023-04-26 13:49 | CASEMGMT ---
Pt. provided with portable oxygen tank taken from stock.
== END 2023-04-26 14:30 | disposition home or self-care (01) | DRG 177 ==
LOC: ED 17:00 → MS3 17:41
PROVIDERS: Admitting Provider Family Medicine; Emergency Provider Emergency Medicine; PCP Family Medicine; Visit Provider Hospitalist
DX: U07.1 COVID-19 (principal); J96.21 Acute and chronic respiratory failure with hypoxia; J44.1 Chronic obstructive pulmonary disease with (acute) exacerbation; Z68.41 Body mass index [BMI] 40.0-44.9, adult; I50.22 Chronic systolic (congestive) heart failure; E11.51 Type 2 diabetes mellitus with diabetic peripheral angiopathy without gangrene; I11.0 Hypertensive heart disease with heart failure; I48.0 Paroxysmal atrial fibrillation; E78.5 Hyperlipidemia, unspecified; I25.5 Ischemic cardiomyopathy; I25.10 Atherosclerotic heart disease of native coronary artery without angina pectoris; G47.33 Obstructive sleep apnea (adult) (pediatric); J30.9 Allergic rhinitis, unspecified; E66.9 Obesity, unspecified; Z79.01 Long term (current) use of anticoagulants; Z79.84 Long term (current) use of oral hypoglycemic drugs; Z86.16 Personal history of COVID-19; Z95.5 Presence of coronary angioplasty implant and graft; Z95.0 Presence of cardiac pacemaker; Z87.891 Personal history of nicotine dependence
CPT/HCPCS: 36415; 71046; 80048; 80053; 80076; 81001; 82550; 82728; 82962; 83735; 83880; 84145; 84484; 85025; 85027; 85379; 85610; 85652; 85730; 86140; 93005; 94640; 94668; 94762; 99285; J7050; A4216; J0248

== ENCOUNTER 2023-07-05 11:32 | Emergency (ER) | payer MEDICARE, OTHER, SELFPAY ==
[2023-07-05 11:33] VITALS: BP 87/62; PULSE 71; RESP 20; TEMP 37.5; O2SAT 95; BMI 32.4
--- OUTSIDE RECORDS SUMMARY | 2023-07-05 12:17 | XMS RPT_ITS | CCD ---
Author Name Unknown Address [id number] [place] [address] Organization [facility] Care Team Providers Care Cnc Supervisor Name Role Phone Kiko Slaughter DO Unavailable Adilson FRANCO, Razia Haque Unavailable Razia De Anda RN Unavailable Mio Garcia MD Unavailable SALVADOR Penaloza, Samantha Xiong Unavailable Unavailable Radha VALDEZ, Angella S Unavailable RITA Combs, Razia Xiong Unavailable DeFinis, Harumi Y Unavailable Unavailable Sebas Guadarrama Unavailable Unavailable Merced Bedoya Unavailable Unavailable Tess Lange LPN Unavailable Unavaila caterina Penaloza RN, Samantha M Unavailable Unavailable SALVADOR Penaloza, Samantha Xiong Unavailable Unavailable SALVADOR Penaloza, Samantha Xiong Unavailable Unavailable Jevon العراقي Unavailable Unavailable Jevon العراقي Unavailable Unavailable Lilo Cade Unavailable Unavailable Merced Bedoya Unavailable Unavailable RITA Combs, Razia Xinog Unavailable Sebas Guadarrama Unavailable Unavailable Kiko Slaughter DO Unavailable Breanna Ribera Unavailable Unavailable Daniel Watson Unavailable Unavailable Fito Chavez Unavailable Unavailable Ceci Bradley Unavailable Unavailable Breanna Ribera PA-C Unavailable Unavailable Daniel Watson PT Unavailable Unavailable Fito Chavez Unavailable Unavailable Fito Chavez MD Primary Care Provider [phone] Dana FRANCO, Giselle Agarwal Unavailable Unavail able Mio Garcia Unavailable Kiko Slaughter Unavailable Dana RN, Giselle Agarwal Unavailable Scott MEYER, Fito Fernandes Primary Care Provider Dana FRANCO, Giselle Agarwal Unavailable Mio Garcia Unavailable Kiko Slaughter Unavailable Scott MEYER, Fito Fernandes Primary Care Provider Dana RN, Giselle Agarwal Unavailable Mio Garcia Unavailable Kiko Slaughter Unavailable Kevin FRANCO, Lopez Unavailable Scott MEYER, Fito Fernandes Primary Care Provider Mio Garcia Unavailable Kiko Slaughter Unavailable Kevin FRANCO, Lopez Unavailable [phone] MAYLIN PIMENTEL Referring Unavailable FITO CHAVEZ Primary Care Unavailable Mio Garcia Unavailable Kiko Slaughter Unavailable Kevin FRANCO, Lopez Unavailable [phone] JAMISON RUVALCABA Attending Unavailable FITO CHAVEZ Primary Care Unavailable FITO CHAVEZ Referring Unavailable FITO CHAVEZ A Primary Care Unavailable SCOTTABRIL PANREY A Referring Unavailable SCOTTABRIL PANREY A Primary Care Unavailable ABRIL CHAVEZREY A Primary Care Unavailable JOEY RODRIGUEZ Attending Unava ilMio Hwang MD Unavailable FITO CHAVEZ Primary Care Unavailable MAYLIN PIMENTEL Attending Unavailable NHI GUO Attending Unavailable FITO CHAVEZ A Primary Care Unavailable MAYLIN PIMENTEL Referring Unavailable FITO CHAVEZ A Primary Care Unavailable RADHA MARINA Attending Unavailable RADHA MARINA Referring Unavailable ABRIL CHAVEZREY A Primary Care Unavailable SCOTT, FITO A Primary Care Unavailable AZUL PARDO Referring Unavailable RADHA MARINA Referring Unavailable SCOTT, FITO A Primary Care Unavailable SCOTT, FITO A Primary Care Unavailable MAYLIN PIMENTEL Referring Unavailable RADHA MARINA Referring Unavailable SCOTT, FITO A Primary Care Unavailable SCOTT, FITO A Primary Care Unavailable AZUL PARDO Attending Unavailable SCOTT, FITO A Primary Care Unavailable MAYLIN PIMENTEL Attending Unavailable SCOTT, FITO A Primary Care Unavailable MAYLIN PIMENTEL Referring Unavailable SCOTT, FITO A Primary Care Unavailable MAYLIN PIMENTEL Attending Unavailable MAYLIN PIMENTEL Referring Unavailable SCOTT, FITO A Primary Care Unavailable MAYLIN PIMENTEL Referring Unavailable EVERETT CARDENAS Referring Unavailable SCOTT, FITO A Primary Care Unavailable SCOTT, FITO A Referring Unavailable SCOTT, FITO A Primary Care Unavailable MAYLIN PIMENTEL Attending Unavailable RADHA MARINA Referring Unavailable SCOTT, FITO A Primary Care Unavailable SCOTT, FITO A Primary Care Unavailable MAYLIN PIMENTEL Referring Unavailable RADHA MARINA Referring Unavailable SCOTT, FITO A Primary Care Unavailable RADHA MARINA Attending Unavailable RADHA MARINA Referring Unavailable SCOTT, FITO A Primary Care Unavailable SCOTT, FITO A Referring Unavailable SCOTT, FITO A Primary Care Unavailable SCOTT, FITO A Primary Care Unavailable SCOTT, FITO A Referring Unavailable SCOTT, FITO A Primary Care Unavailable SCOTT, FITO A Referring Unavailable AZUL PARDO Attending Unavailable SCOTT, FITO A Attending Unavailable MAYLIN PIMENTEL Referring Unavailable SCOTT, FITO A Primary Care Unavailable SCOTT, FITO A Referring Unavailable SCOTT, FITO A Primary Care Unavailable SCOTT, FITO A Primary Care Unavailable MAYLIN PIMENTEL Referring Unavailable RADHA MARINA Referring Unavailable SCOTT, FITO A Primary Care Unavailable AZUL PARDO Attending Unavailable SCOTT, FITO A Primary Care Unavailable MAYLIN PIMENTEL Attending Unavailable SCOTT, FITO A Primary Care Unavailable MAYLIN PIMENTEL Attending Unavailable Allergies Allergy Classification Reported Allergen(s) Allergy Type Date of Onset Reaction(s) Facility (20 sources) ciprofloxacin drug allergy 6 [facility] Work Phone: (19 sources) Sulfonamides (Antibiotic) drug allergy 10-03-201 6 Unknown [facility] Work Phone: (20 sources) ciprofloxacin; Translations: [ciprofloxacin] Drug Allergy 9 Swelling [facility] Repository (4 sources) Sulfonamides (Antibiotic); Translations: [sulfa drugs] Propensity to adverse reactions to drug (disorder) Rash [facility] Repository (20 sources) Sulfonamides (Antibiotic); Translations: [SULFA (SULFONAMIDE ANTIBIOTICS)] Propensity to adverse reactions to drug 9 Unknown [facility] Work Phone: Medications Current Medications Medication Drug Class(es) Dates Sig (Normalized) Sig (Original) 10 ml aminophylline 25 mg/ml injection (8 sources) Start: 03-30-2023 End: 04-06-2023 aminophylline 50-100 mg injection amoxicillin 875 mg / clavulanate 125 mg oral tablet (9 sources) Penicillin-class Antibacterial Start: 02-13-2023 End: 02-23-2023 take 1 tablet by mouth twice daily amoxicillin-clavul anic acid (AUGMENTIN) 875-125 mg per tablet Take 1 tablet by mouth twice daily for 10 days. 20 tablet 0 02/13/2023 02/23/2023 Active Completed/Discontinued Medications Medication Drug Class(es) Dates Sig (Normalized) Sig (Original) 8 hr acetaminophen 650 mg extended release oral tablet (20 sources) Start: 04-26-2021 take 2 tablets by mouth every eight hours as needed acetaminophen (TYLENOL ARTHRITIS PAIN) 650 mg CR tablet Take 2 tablets by mouth every 8 hours as needed. 0 04/26/2021 Active Problems Active Problems Problem Classification Problem Date Documented Date Episodic/Chronic Anxiety disorders (20 sources) Anxiety; Translations: [Anxiety disorder, unspecified] Onset: 12-03-2012 11-06-2013 Chronic Cardiac dysrhythmias (12 sources) Atrial flutter; Translations: [Unspecified atrial flutter] Onset: 03-31-2023 03-31-2023 Chronic Cataract (20 sources) Senile combined form cataract of right eye; Translations: [Combined forms of age-related cataract, right eye] Onset: 10-02-2020 10-27-2020 Chronic Chronic obstructive pulmonary disease and bronchiectasis (20 sources) Chronic obstructive lung disease; Translations: [Chronic obstructive pulmonary disease, unspecified] Onset: 02-01-2015 02-28-2016 Chronic Complication of device; implant or graft (20 sources) Arteriosclerosis of coronary artery bypass graft; Translations: [Atherosclerosis of coronary artery bypass graft(s) without angina pectoris] Onset: 02-01-2015 02-28-2016 Chronic Conditions associated with dizziness or vertigo (1 source) Dizziness; Translations: [Dizziness and giddiness] Episodic Conduction disorders (20 sources) Automatic implantable cardiac defibrillator in situ; Translations: [Combination internal cardiac defibrillator and pacemaker in situ] Onset: 09-26-2013 02-01-2017 Chronic Congestive heart failure; nonhypertensive (2 sources) Heart failure, unspecified; Translations: [Heart failure, unspecified] Onset: 04-22-2023 Chronic Coronary atherosclerosis and other heart disease (20 sources) Generalized ischemic myocardial dysfunction; Translations: [Ischemic cardiomyopathy] Onset: 09-26-2013 01-30-2017 Chronic Diabetes mellitus with complications (20 sources) Type 2 diabetes mellitus; Translations: [Type 2 diabetes mellitus with diabetic peripheral angiopathy without gangrene] Onset: 12-03-2012 07-04-2021 Chronic Diabetes mellitus without complication (20 sources) Diabetes mellitus type 2 without retinopathy; Translations: [Type 2 diabetes mellitus without complications] Onset: 10-02-2020 10-02-2020 Chronic Disorders of lipid metabolism (20 sources) Mixed hyperlipidemia; Translations: [Mixed hyperlipidemia] Onset: 09-11-2013 10-25-2015 Chronic Esophageal disorders (20 sources) Gastroesophageal reflux disease without esophagitis; Translations: [Gastro-esophageal reflux disease without esophagitis] Onset: 10-25-2015 03-01-2016 Chronic Essential hypertension (20 sources) Hypertensive disorder; Translations: [Unspecified essential hypertension] Onset: 10-25-2015 10-25-2015 Chronic Genitourinary symptoms and ill-defined conditions (20 sources) Urge incontinence of urine; Translations: [Urge incontinence] Onset: 03-01-2016 03-01-2016 Chronic Hyperplasia of prostate (20 sources) Benign prostatic hyperplasia; Translations: [Benign prostatic hyperplasia with lower urinary tract symptoms] Onset: 03-01-2016 03-01-2016 Chronic Inflammation; infection of eye (except that caused by tuberculosis or sexually transmitteddisease) (20 sources) Bilateral punctate keratitis of eyes; Translations: [Punctate keratitis, bilateral] Onset: 10-02-2020 10-02-2020 Chronic Mycoses (3 sources) Tinea corporis; Translations: [Tinea corporis] Episodic Non-Hodgkin`s lymphoma (20 sources) History of non-Hodgkins lymphoma; Translations: [Personal history of other lymphatic and hematopoietic neoplasms] 11-27-2018 Episodic Occlusion or stenosis of precerebral arteries (20 sources) Left carotid artery stenosis; Translations: [Occlusion and stenosis of left carotid artery] Onset: 04-04-2021 04-04-2021 Chronic Osteoarthritis (2 sources) Arthritis of first carpometacarpal joint of right hand; Translations: [Unilateral primary osteoarthritis of first carpometacarpal joint, right hand] Onset: 02-19-2023 02-19-2023 Chronic Other bone disease and musculoskeletal deformities (1 source) Costal chondritis; Translations: [Chondrocostal junction syndrome [Tietze]] Episodic Other circulatory disease (20 sources) Disorder of carotid artery; Translations: [Disorder of arteries and arterioles, unspecified] Onset: 10-25-2015 01-30-2017 Chronic Other circulatory disease (3 sources) History of peripheral vascular disease; Translations: [Personal history of other diseases of circulatory system] Episodic Other circulatory disease (3 sources) H/O: heart failure; Translations: [Personal history of other diseases of circulatory system] Episodic Other connective tissue disease (1 source) Decreased range of knee movement ; Translations: [Decreased ROM of left knee] Chronic Other connective tissue disease (1 source) Pain of right calf; Translations: [Pain in right lower leg] Episodic Other connective tissue disease (1 source) Mass of soft tissue; Translations: [Other specified soft tissue disorders] Episodic Other connective tissue disease (1 source) Pain in right hand; Translations: [Pain in right hand] 02-14-2023 Episodic Other lower respiratory disease (20 sources) Dyspnea; Translations: [Shortness of breath] Onset: 02-28-2016 02-28-2016 Episodic Other lower respiratory disease (3 sources) History of chronic obstructive airway disease; Translations: [Personal history of other diseases of respiratory system] Episodic Other lower respiratory disease (3 sources) H/O: bronchitis; Translations: [Personal history of other diseases of respiratory system] Episodic Other lower respiratory disease (1 source) Wheezing; Translations: [Wheezing] Episodic Other lower respiratory disease (1 source) Cough; Translations: [Acute cough] Episodic Other lower respiratory disease (2 sources) Chronic cough; Translations: [Chronic cough] Onset: 03-29-2023 03-19-2023 Episodic Other lower respiratory disease (1 source) Shortness of breath; Translations: [SOB (shortness of breath)] Onset: 03-30-2023 Episodic Other nervous system disorders (20 sources) Chronic pain; Translations: [Other chronic pain] Onset: 09-11-2013 08-02-2021 Chronic Other nervous system disorders (3 sources) Antalgic gait; Translations: [Abnormality of gait] Episodic Other non-traumatic joint disorders (3 sources) Arthritis of knee; Translations: [Arthropathy, unspecified, lower leg] Chronic Other non-traumatic joint disorders (4 sources) Knee pain; Translations: [Pain in joint, lower leg] Episodic Other non-traumatic joint disorders (2 sources) Pain of right wrist; Translations: [Pain in right wrist] Episodic Other nutritional; endocrine; and metabolic disorders (19 sources) Obesity; Translations: [Obesity, unspecified] Onset: 02-28-2016 02-28-2016 Chronic Other skin disorders (1 source) Mass of skin; Translations: [Localized swelling, mass and lump, unspecified] Episodic Other skin disorders (1 source) Localized swelling, mass and lump, unspecified; Translations: [Skin mass] Onset: 11-06-2022 Episodic Other skin disorders (1 source) Sebaceous cyst of skin; Translations: [Sebaceous cyst] Episodic Other upper respiratory disease (20 sources) Allergic rhinitis; Translations: [Allergic rhinitis, unspecified] Onset: 05-19-2014 07-06-2016 Chronic Other upper respiratory infections (3 sources) Acute upper respiratory infection; Translations: [Acute upper respiratory infections of unspecified site] Episodic Peripheral and visceral atherosclerosis (18 sources) Peripheral vascular disease; Translations: [Peripheral vascular disease, unspecified] Onset: 01-30-2017 01-30-2017 Chronic Residual codes; unclassified (1 source) Obstructive sleep apnea (adult) (pediatric); Translations: [Obstructive sleep apnea syndrome] Onset: 03-08-2020 Chronic Screening or history of mental health and substance abuse (19 sources) Tobacco dependence in remission; Translations: [Nicotine dependence, unspecified, in remission] Onset: 02-28-2016 02-28-2016 Chronic Spondylosis; intervertebral disc disorders; other back problems (20 sources) Lumbar spondylosis; Translations: [Spondylosis without myelopathy or radiculopathy, lumbar region] Onset: 06-13-2013 03-01-2016 Chronic Unclassified (20 sources) Obstructive sleep apnea syndrome; Translations: [Obstructive sleep apnea (adult) (pediatric)] Onset: 10-25-2015 04-10-2016 Chronic Unclassified (10 sources) Placement of stent in coronary artery ; Translations: [Presence of other cardiac implants and grafts] Onset: 02-01-2017 02-01-2017 Unclassified (20 sources) Nodule of lung; Translations: [Lung nodule < 6cm on CT] Onset: 05-23-2018 06-03-2019 Unclassified (1 source) Acute midline low back pain without sciatica; Translations: [Acute midline low back pain without sciatica] Onset: 03-01-2016 Unclassified (1 source) Subacute cough; Translations: [Subacute cough] Onset: 02-13-2023 Unclassified (1 source) Acute cough; Translations: [Acute cough] Onset: 07-26-2022 Viral infection (1 source) Disease caused by 2019-nCoV; Translations: [COVID-19] 06-04-2023 Episodic Viral infection (2 sources) COVID-19; Translations: [COVID-19] Onset: 04-22-2023 Past or Other Problems Problem Classification Problem Date Documented Date Episodic/Chronic Blindness and vision defects (20 sources) Regular astigmatism of right eye; Translations: [Regular astigmatism, right eye] Onset: 10-27-2020 10-27-2020 Episodic E Codes: Fall (3 sources) Fall; Translations: [Unspecified fall, initial encounter] Onset: 07-26-2022 Episodic Genitourinary symptoms and ill-defined conditions (20 sources) Nocturia; Translations: [Nocturia] Onset: 12-10-2012 11-06-2013 Episodic Immunizations and screening for infectious disease (20 sources) Patient encounter status; Translations: [Encounter for immunization] Onset: 09-27-2022 Episodic Neoplasms of unspecified nature or uncertain behavior (20 sources) Neoplasm of uncertain behavior of face; Translations: [Neoplasm of uncertain behavior of other specified sites] Onset: 02-01-2015 07-04-2021 Episodic Nonmalignant breast conditions (20 sources) Gynecomastia; Translations: [Hypertrophy of breast] Onset: 01-22-2013 07-04-2021 Episodic Other aftercare (20 sources) Drug therapy finding; Translations: [Other shelter (current) drug therapy] Onset: 03-24-2017 03-24-2017 Episodic Other aftercare (1 source) 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; Translations: [On amiodarone therapy] Onset: 01-04-2021 Episodic Other bone disease and musculoskeletal deformities (1 source) Chondrocostal junction syndrome [Tietze]; Translations: [Costochondritis] Onset: 07-26-2022 Episodic Other circulatory disease (20 sources) History of cerebrovascular accident; Translations: [Personal history of transient ischemic attack (TIA), and cerebral infarction without residual deficits] Onset: 09-11-2013 07-04-2021 Episodic Other circulatory disease (1 source) Personal history of transient ischemic attack (TIA), and cerebral infarction without residual deficits; Translations: [History of CVA (cerebrovascular accident)] Onset: 07-05-2021 Episodic Other connective tissue disease (1 source) Pain in right hand; Translations: [Pain of right hand] Onset: 02-14-2023 Episodic Other eye disorders (20 sources) H/O: L cataract extraction; Translations: [Cataract extraction status, left eye] Onset: 12-07-2020 12-07-2020 Episodic Other infections; including parasitic (20 sources) Personal history of other infectious and parasitic diseases; Translations: [History of 2019 novel coronavirus disease (COVID-19)] Onset: 05-06-2020 05-06-2020 Episodic Other lower respiratory disease (13 sources) Nodule of lung; Translations: [Solitary pulmonary nodule] Onset: 05-23-2018 06-03-2019 Episodic Other lower respiratory disease (1 source) Wheezing; Translations: [Wheezing] Onset: 07-26-2022 Episodic Other male genital disorders (20 sources) Disorder of prostate; Translations: [Disorder of prostate, unspecified] Onset: 03-01-2016 03-01-2016 Episodic Other male genital disorders (1 source) Disorder of prostate, unspecified; Translations: [Disorder of prostate] Onset: 03-01-2016 Episodic Other non-epithelial cancer of skin (20 sources) History of malignant neoplasm of skin; Translations: [Personal history of other malignant neoplasm of skin] Onset: 11-02-2008 03-01-2016 Episodic Other non-traumatic joint disorders (20 sources) Shoulder joint pain; Translations: [Pain in unspecified shoulder] Onset: 09-22-2013 03-01-2016 Episodic Other non-traumatic joint disorders (1 source) Pain in right wrist; Translations: [Right wrist pain] Onset: 01-11-2023 Episodic Other screening for suspected conditions (not mental disorders or infectious disease) (20 sources) Raised prostate specific antigen; Translations: [Elevated prostate specific antigen [PSA]] Onset: 09-28-2022 Episodic Other skin disorders (20 sources) Inflamed seborrheic keratosis; Translations: [Inflamed seborrheic keratosis] Onset: 05-16-2017 11-14-2017 Episodic Other skin disorders (20 sources) Actinic keratosis; Translations: [Actinic keratosis] Onset: 05-16-2017 05-21-2018 Episodic Other skin disorders (1 source) Sebaceous cyst; Translations: [Sebaceous cyst] Onset: 11-13-2022 Episodic Residual codes; unclassified (20 sources) Family history of prostate cancer; Translations: [Family history of malignant neoplasm of prostate] Onset: 12-10-2012 03-01-2016 Episodic Residual codes; unclassified (20 sources) Blood group O Rh(D) positive; Translations: [Type O blood, Rh positive] Onset: 03-29-2020 03-29-2020 Episodic Screening and history of mental health and substance abuse codes (20 sources) Ex-smoker; Translations: [Personal history of nicotine dependence] Onset: 12-10-2012 11-27-2018 Episodic Skin and subcutaneous tissue infections (6 sources) Cellulitis of skin; Translations: [Cellulitis, unspecified] Onset: 11-13-2022 Episodic Spondylosis; intervertebral disc disorders; other back problems (20 sources) Spinal stenosis of lumbar region; Translations: [Spinal stenosis, lumbar region without neurogenic claudication] Onset: 02-20-2013 03-01-2016 Episodic Syncope (20 sources) Cardiac syncope; Translations: [Syncope and collapse] Onset: 04-04-2021 04-04-2021 Episodic NEGATED: Highlighted row has not occurred!Residual codes; unclassified (20 sources) Disease Episodic Results Test Name Value Interpretation Reference Range Facil ity Vital Signs Date Time Vital Sign Value Performing Clinician Facility 06-04-2023 12:54-0500 Body weight 92.08 kg Azul Pardo [employer]TER [employer].PLANT PATHOLOGIST Work Phone: [facility] 06-04-2023 12:54-0500 Diastolic blood pressure 74 mm[Hg] Azul Pardo [employer]RAFTER [employer]INEERING.PLANT PATHOLOGIST Work Phone: [facility] 06-04-2023 12:54-0500 Heart rate 70 /min Azul Pardo [employer]ING.PLANT PATHOLOGIST Work Phone: [facility] 06-04-2023 12:54-0500 Respiratory rate 18 /min Azul Pardo [employer]RAFTER [employer] ENG[employer]ERING.PLANT PATHOLOGIST Work Phone: [facility] 06-04-2023 12:54-0500 SaO2% (BldA) [Mass fraction] 98 % Azul Pardo [employer]RAF[employer] ENGINEERING.PLANT PATHOLOGIST Work Phone: [facility] 06-04-2023 12:54-0500 Systolic blood pressure 138 mm[Hg] Azul Pardo [employer]RAFTER [employer]IV[employer] ENGINEERING.PLANT PATHOLOGIST Work Phone: [facility] 03-30-2023 11:32-0400 Diastolic blood pressure 68 mm[Hg] Fito Chavez MD Work Phone: [facility] 03-30-2023 11:32-0400 Systolic blood pressure 113 mm[Hg] Fito Chavez MD Work Phone: [facility] 03-30-2023 11:00-0400 Body weight 92.99 kg Fito Chavez MD Work Phone: [facility] 03-30-2023 11:00-0400 Heart rate 80 /min Fito Chavez MD Work Phone: [facility] 03-30-2023 11:00-0400 Respiratory rate 16 /min Fito Chavez MD Work Phone: [facility] 03-30-2023 11:00-0400 SaO2% (BldA) [Mass fraction] 93 % Fito Chavez MD Work Phone: [facility] 03-19-2023 13:40-0400 Body temperature 97.5 [degF] Maylin Pimentel PA-C Work Phone: [facility] 03-19-2023 13:40-0400 Body weight 93.89 kg Maylin Pimentel PA-C Work Phone: [facility] 03-19-2023 13:40-0400 Diastolic blood pressure 72 mm[Hg] Maylin Pimentel PA-C Work Phone: [facility] 03-19-2023 13:40-0400 Heart rate 66 /min Maylin Pimentel PA-C Work Phone: [facility] 03-19-2023 13:40-0400 Respiratory rate 18 /min Maylin Pimentel PA-C Work Phone: [facility] 03-19-2023 13:40-0400 SaO2% (BldA) [Mass fraction] 92 % Maylin Pimentel PA-C Work Phone: [facility] 03-19-2023 13:40-0400 Systolic blood pressure 122 mm[Hg] Maylin Pimentel PA-C Work Phone: [facility] 02-14-2023 15:03-0400 Body temperature 97.5 [degF] Everett Cardenas APRN.PLANT PATHOLOGIST Work Phone: [facility] 02-14-2023 15:03-0400 Body weight 94.8 kg Everett Cardenas APRN.PLANT PATHOLOGIST Work Phone: [facility] 02-14-2023 15:03-0400 Diastolic blood pressure 60 mm[Hg] Everett Cardenas APRN.PLANT PATHOLOGIST Work Phone: [facility] 02-14-2023 15:03-0400 Heart rate 68 /min Everett Cardenas APRN.PLANT PATHOLOGIST Work Phone: [facility] 02-14-2023 15:03-0400 Respiratory rate 16 /min Everett Cardenas APRN.PLANT PATHOLOGIST Work Phone: [facility] 02-14-2023 15:03-0400 SaO2% (BldA) [Mass fraction] 95 % Everett Cardenas APRN.PLANT PATHOLOGIST Work Phone: [facility] 02-14-2023 15:03-0400 Systolic blood pressure 108 mm[Hg] Everett Cardenas APRN.PLANT PATHOLOGIST Work Phone: [facility] 01-11-2023 11:38-0400 Body temperature 97.3 [degF] Maylin Pimentel PA-C Work Phone: [facility] 01-11-2023 11:38-0400 Body weight 95.71 kg Maylin Pimentel PA-C Work Phone: [facility] 01-11-2023 11:38-0400 Diastolic blood pressure 56 mm[Hg] Maylin Pimentel PA-C Work Phone: [facility] 01-11-2023 11:38-0400 Heart rate 70 /min Maylin Pimentel PA-C Work Phone: [facility] 01-11-2023 11:38-0400 Respiratory rate 18 /min Maylin Pimentel PA-C Work Phone: [facility] 01-11-2023 11:38-0400 Systolic blood pressure 96 mm[Hg] Maylin Pimentel PA-C Work Phone: [facility] 12-26-2022 10:59-0400 Diastolic blood pressure 62 mm[Hg] Radha Marina DO Work Phone: [facility] 12-26-2022 10:59-0400 Heart rate 65 /min Radha Marina DO Work Phone: [facility] 12-26-2022 10:59-0400 SaO2% (BldA) [Mass fraction] 94 % Radha Marina DO Work Phone: [facility] 12-26-2022 10:59-0400 Systolic blood pressure 112 mm[Hg] Radha Marina DO Work Phone: [facility] 11-13-2022 10:01-0400 Body height 170.2 cm Nhi Guo MD Work Phone: [facility] 11-13-2022 10:01-0400 Body temperature 97.3 [degF] Nhi Guo MD Work Phone: [facility] 11-13-2022 10:01-0400 Body weight 95.25 kg Nhi Guo MD Work Phone: [facility] 11-13-2022 10:01-0400 Diastolic blood pressure 70 mm[Hg] Nhi Guo MD Work Phone: [facility] 11-13-2022 10:01-0400 Heart rate 74 /min Nhi Guo MD Work Phone: [facility] 11-13-2022 10:01-0400 SaO2% (BldA) [Mass fraction] 97 % Nhi Guo MD Work Phone: [facility] 11-13-2022 10:01-0400 Systolic blood pressure 142 mm[Hg] Nhi Guo MD Work Phone: [facility] 11-03-2022 12:53-0400 Body temperature 97 [degF] Maylin Pimentel PA-C Work Phone: [facility] 11-03-2022 12:53-0400 Body weight 94.8 kg Malyin Pimentel PA-C Work Phone: [facility] 11-03-2022 12:53-0400 Diastolic blood pressure 70 mm[Hg] Maylin Pimentel PA-C Work Phone: [facility] 11-03-2022 12:53-0400 Heart rate 70 /min Maylin Pimentel PA-C Work Phone: [facility] 11-03-2022 12:53-0400 Respiratory rate 18 /min Maylin Pimentel PA-C Work Phone: [facility] 11-03-2022 12:53-0400 Systolic blood pressure 122 mm[Hg] Maylin Pimentel PA-C Work Phone: [facility] 10-23-2022 08:50-0400 Body weight 94.8 kg Azul Knoble DRAFTER CIVIL ENGINEERING.PLANT PATHOLOGIST Work Phone: [facility] 10-23-2022 08:50-0400 Diastolic blood pressure 68 mm[Hg] Azul Knoble DRAFTER CIVIL ENGINEERING.PLANT PATHOLOGIST Work Phone: [facility] 10-23-2022 08:50-0400 Heart rate 66 /min Azul Knoble DRAFTER CIVIL ENGINEERING.PLANT PATHOLOGIST Work Phone: [facility] 10-23-2022 08:50-0400 Respiratory rate 18 /min Azul Knoble DRAFTER CIVIL ENGINEERING.PLANT PATHOLOGIST Work Phone: [facility] 10-23-2022 08:50-0400 Systolic blood pressure 120 mm[Hg] Azul Knoble DRAFTER CIVIL ENGINEERING.PLANT PATHOLOGIST Work Phone: [facility] 10-17-2022 08:45-0400 Body temperature 97.7 [degF] Azul Knoble DRAFTER CIVIL ENGINEERING.PLANT PATHOLOGIST Work Phone: [facility] 10-17-2022 08:45-0400 Body weight 95.25 kg Azul Knoble DRAFTER CIVIL ENGINEERING.PLANT PATHOLOGIST Work Phone: [facility] 10-17-2022 08:45-0400 Diastolic blood pressure 76 mm[Hg] Azul Knoble DRAFTER CIVIL ENGINEERING.PLANT PATHOLOGIST Work Phone: [facility] 10-17-2022 08:45-0400 Heart rate 76 /min Azul Knoble DRAFTER CIVIL ENGINEERING.PLANT PATHOLOGIST Work Phone: [facility] 10-17-2022 08:45-0400 Respiratory rate 18 /min Azul Knoble DRAFTER CIVIL ENGINEERING.PLANT PATHOLOGIST Work Phone: [facility] 10-17-2022 08:45-0400 Systolic blood pressure 124 mm[Hg] Azul Knoble DRAFTER CIVIL ENGINEERING.PLANT PATHOLOGIST Work Phone: [facility] 10-10-2022 10:03-0400 Diastolic blood pressure 74 mm[Hg] Radha Marina DO Work Phone: [facility] 10-10-2022 10:[id number] Heart rate 63 /min Radha Marina DO Work Phone: [facility] 10-10-2022 10:03-0400 SaO2% (BldA) [Mass fraction] 95 % Radha Marina DO Work Phone: [facility] 10-10-2022 10:03040 Systolic blood pressure 126 mm[Hg] Radha Marina DO Work Phone: [facility] 09-27-2022 12:22040 Body height 168.5 cm Maylin Pimentel PA-C Work Phone: [facility] 09-27-2022 12:22-040 Body temperature 97.11 [degF] Maylin Pimentel PA-C Work Phone: [facility] 09-27-2022 12:22-0400 Body weight 94.8 kg Maylin Pimentel PA-C Work Phone: [facility] 09-27-2022 12:22-0400 Diastolic blood pressure 70 mm[Hg] Maylin Pimentel PA-C Work Phone: [facility] 09-27-2022 12:22-0400 Heart rate 68 /min Maylin Pimentel PA-C Work Phone: [facility] 09-27-2022 12:22-0400 Respiratory rate 18 /min Maylin Pimentel PA-C Work Phone: [facility] 09-27-2022 12:22-0400 Systolic blood pressure 122 mm[Hg] Maylin Pimentel PA-C Work Phone: [facility] 07-26-2022 12:42-0500 Body weight 95.89 kg Maylin Pimentel PA-C Work Phone: [facility] 07-26-2022 12:42-0500 Diastolic blood pressure 70 mm[Hg] Maylin Pimentel PA-C Work Phone: [facility] 07-26-2022 12:42-0500 Heart rate 69 /min Maylin Pimentel PA-C Work Phone: [facility] 07-26-2022 12:42-0500 Respiratory rate 20 /min Maylin Pimentel PA-C Work Phone: [facility] 07-26-2022 12:42-0500 SaO2% (BldA) [Mass fraction] 97 % Maylin Pimentel PA-C Work Phone: [facility] 07-26-2022 12:42-0500 Systolic blood pressure 132 mm[Hg] Maylin Pimentel PA-C Work Phone: [facility] 02-01-2017 10:56-0400 Heart rate 65 /min Sebas [facility] Work Phone: 02-01-2017 10:42-0400 BMI (Body Mass Index) 31.09 kg/m2 [facility] Work Phone: 02-01-2017 10:42-0400 BP Diastolic 60 mm[Hg] [facility] Work Phone: 02-01-2017 10:42-0400 BP Systolic 120 mm[Hg] Sofiepiy[facility] Work Phone: 02-01-2017 10:42-0400 Height 172.72 cm Edikhushbupiyush [facility] Work Phone: 02-01-2017 10:42-0400 Pulse (Heart Rate) 72 /min [facility]upiyush [facility] Work Phone: 02-01-2017 10:42-0400 Respiratory Rate 20 /min Sof[facility] Work Phone: 02-01-2017 10:42-0400 Weight 92.76 kg Sebas [facility] Work Phone: 01-02-2017 08:51-0400 BMI (Body Mass Index) 28.98 kg/m2 [facility] [place] Work Phone: 01-02-2017 08:51-0400 Body Temperature 98.1 [degF] Merced Aureliano [facility] Work Phone: 01-02-2017 08:51-0400 BP Diastolic 83 mm[Hg] Merced Aureliano [facility] [place] Work Phone: 01-02-2017 08:51-0400 BP Systolic 146 mm[Hg] Merced Aureliano [facility] Work Phone: 01-02-2017 08:51-0400 Height 177.8 cm Merced Bedoya [facility] Work Phone: 01-02-2017 08:51-0400 Pulse (Heart Rate) 73 /min Merced Aureliano [facility] [place] Work Phone: 01-02-2017 08:51-0400 Pulse Oximetry 97 % Merced Aureliano [facility] [place] Work Phone: 01-02-2017 08:51-0400 Respiratory Rate 18 /min Mercedstefano Bedoya [facility] [place] Work Phone: 01-02-2017 08:51-0400 Weight 91.63 kg Merced Bedoya [facility] [place] Work Phone: 07-06-2016 08:59-0500 BMI (Body Mass Index) 30.99 kg/m2 Tess Lange LPN [facility] [place] Work Phone: 07-06-2016 08:59-0500 Body Temperature 97.7 [degF] Tess Lange LPN [facility] Work Phone: 07-06-2016 08:59-0500 BP Diastolic 75 mm[Hg] Tess Lange LPN [facility] [place] Work Phone: 07-06-2016 08:59-0500 BP Systolic 129 mm[Hg] Tess Lange AUTOMOTIVE INSTRUCTOR [facility] Work Phone: 07-06-2016 08:59-0500 BSA (Body Surface Area) 2.16 m2 Tess Lange LPN [facility] Phone: 07-06-2016 08:59-0500 Height 177.8 cm Tess Lange LPN [facility] [place] Work Phone: 07-06-2016 08:59-0500 Pulse (Heart Rate) 80 /min Tess Lange LPN [facility] [place] Work Phone: 07-06-2016 08:59-0500 Pulse Oximetry 94 % Tess Lange LPN [facility] Phone: 07-06-2016 08:59-0500 Respiratory Rate 18 /min Tess Lange LPN [facility] [place] Work Phone: 07-06-2016 08:59-0500 Weight 98.18 kg Tess Lange LPN [facility] [place] Work Phone: 07-06-2016 08:59-0500 Weight 97.98 kg Tess Lange AUTOMOTIVE INSTRUCTOR [facility] Phone: Encounters Encounter Date Encounter Type Care Provider Facility Start: 06-22-2023 ambulatory Lopez Brown RN Work Phone: [employer] Procedures Date Procedure Procedure Detail Performing Clinician Start: 06-04-2023 INFLUENZA VACCINE, PRSV FREE, AGE 65+ YR, HIGH DOSE, QUADRIVALENT (FLUZONE HIGH-DOSE) Azul Pardo APRN.PLANT PATHOLOGIST Work Phone: Start: 03-30-2023 Ecg routine ecg w/least 12 lds i&r only [facility] Provider Start: 10-17-2022 Ct angiography head w/contrast/noncontrast Radha Marina DO Work Phone: Start: 10-17-2022 Ct angiography neck w/contrast/noncontrast Radha Marina DO Work Phone: Start: 07-26-2022 INFLUENZA SEASONAL QUADRIVALENT HIGH DOSE AGE 65+ Maylin Pimentel PA-C Work Phone: Start: 02-27-2022 Ct head/brain w/o contrast material Leia lynn Pimentel PA-C Work Phone: Start: 05-15-2017 End: 05-15-2017 Prgrmg eval implantable in person multi lead dfb Razia Combs PA-C Work Phone: Start: 02-09-2017 End: 02-09-2017 Prgrmg eval implantable in person multi lead dfb Mio Garcia MD Start: 02-09-2017 End: 02-09-2017 Icd device progr micaela miller MD Start: 02-01-2017 End: 02-01-2017 Ecg routine ecg w/least 12 lds w/i&r Mio Garcia MD Start: 02-01-2017 End: 02-01-2017 Follow Up Appt 6 months Mio Garcia MD Start: 02-01-2017 End: 02-01-2017 Follow Up Appt Other Mio Garcia MD Start: 02-01-2017 End: 02-01-2017 PFM Mio Garcia MD Start: 02-01-2017 End: 02-01-2017 Electrocardiogram, complete Mio alonzo MD Start: 02-01-2017 End: 02-01-2017 Follow Up Appt 6 months Mio Garcia MD Start: 02-01-2017 End: 02-01-2017 Follow Up Appt Other Mio Garcia MD Start: 02-01-2017 End: 02-01-2017 PFM Mio Garcia MD Start: 02-01-2017 Placement of stent in coronary artery Mutilple coronary stents Sebas Guadarrama Start: 01-02-2017 End: 01-03-2017 Referral to trapeze artist Kiko Mercado O Work Phone: Start: 01-02-2017 End: 03-05-2017 Referral to trapeze artist Kiko Mercado O Work Phone: Start: 04-10-2016 End: 04-10-2016 Demo&/eval of pt utiliz aersl gen/neb/inhlr/ip Kiko Slaughter DO Work Phone: Start: 04-10-2016 End: 04-10-2016 Evaluate pt use of inhaler Kiko Tyrese Slaughter DO Work Phone: Start: 02-28-2016 End: 04-10-2016 DMDavid Xiong Sukhjinder DO Work Phone: Start: 02-28-2016 End: 04-10-2016 Follow Up Appt 6 weeks Kiko Xiong Sukhjinder DO Work Phone: Start: 02-28-2016 End: 04-07-2016 Pulmonary Function Test - complete Kiko Xiong Sukhjinder DO Work Phone: Start: 02-28-2016 End: 04-07-2016 Pulmonary stress test/simple Kiko jiménez DO Work Phone: Start: 02-28-2016 End: 04-10-2016 ARLEEN Xiong Sukhjinder DO Work Phone: Start: 02-28-2016 End: 04-10-2016 Follow Up Appt 6 weeks Kiko Xiong Sukhjinder DO Work Phone: Start: 02-28-2016 End: 04-07-2016 Pulmonary Function Test - complete Kiko Xiong Sukhjinder DO Work Phone: Start: 02-28-2016 End: 04-07-2016 Pulmonary stress test/simple Kiko jiménez DO Work Phone: Start: 09-26-2013 History of coronary artery bypass grafting S/P CABG x 3 Giselle Cortez RN Colonoscopy Breanna Ribera Esophagogastroduodenoscopy Lilo Ribera Insertion of arterial stent Breanna Ribera Insertion of pacemak er pulse generator Breanna Ribera Operation on heart Breanna Andrae perez 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 Breanna Ribera Plan of Treatment Date Care Activity Detail Author Start: 04-19-2027 Urine microalbumin profile [facility] Start: 06-04-2024 Annual PCP Team Mesmerist gilles Disease Visit Annual PCP Team Chronic Disease Visit [facility] Start: 03-30-2024 Annual PCP Team Mesmerist gilles Disease Visit Annual PCP Team Chronic Disease Visit [facility] Start: 03-30-2024 BP Controlled (<130/80) BP Controlle d (<130/80) [facility] Start: 03-30-2024 Hepatitis B screening Urine Al bumin:Creatinine Ratio [facility] Start: 03-30-2024 Hepatitis B surface antibody level LDL Cholesterol [facility] Start: 03-30-2024 Shingrix Vaccine (1 of 2) Barnett grix Vaccine (1 of 2) [facility] Immunizations Immunization Date Immunization Notes Care Provider Fa [facility] 06-04-2023 influenza (HD-IIV4) vaccine, age 65+ yr, high dose, quadrivalent, PF (FLUZONE HIGH-DOSE) Azul Pardo APRN.PLANT PATHOLOGIST Work Phone: [facility] 07-26-2022 influenza, high-dose , quadrivalent vaccine (FLUZONE HIGH DOSE QUADRIVALENT) Maylin Pimentel PA-C Work Phone: [facility] 07-26-2022 influenza virus vacc ine, unspecified formulation Fito Chavez MD Work Phone: [facility] 08-02-2021 influenza, high-dose , quadrivalent vaccine (FLUZONE HIGH DOSE QUADRIVALENT) Giselle Cortez RN [facility] 02-22-2021 COVID-19 vaccine, ag e 12+ yr (PFIZER-BIONTECH - PURPLE TOP) Giselle Cortez RN [facility] Work Phone: 02-02-2021 COVID-19 vaccine, ag e 12+ yr (PFIZER-BIONTECH - PURPLE TOP) Giselle Cortez RN [facility] 04-08-2020 influenza, seasonal, injectable, preservative free Giselle Cortez RN [facility] 03-09-2020 influenza, seasonal, injectable, preservative free Giselle Cortez RN [facility] 06-03-2019 influenza, high dose seasonal, preservative-free Giselle Cortez RN [facility] 05-02-2018 influenza, high dose seasonal, preservative-free Giselle Cortez RN [facility] 05-16-2017 influenza, injectabl e, quadrivalent, contains preservative Giselle Cortez RN [facility] 05-09-2017 influenza, seasonal, injectable, preservative free Giselle Cortez RN [facility] 04-19-2017 tetanus toxoid, redu yash diphtheria toxoid, and acellular pertussis vaccine, adsorbed Giselle Cortez RN [facility] Work Phone: 04-09-2017 pneumococcal conjuga te vaccine, 13 valent Giselle Cortez RN [facility] 04-24-2016 influenza virus vacc ine, unspecified formulation Giselle Cortez RN [facility] Work Phone: 04-10-2016 influenza, injectabl e, madin shawna canine kidney, preservative free Giselle Cortez RN [facility] 04-10-2016 influenza, injectabl e, quadrivalent, preservative free Samantha Penaloza RN [facility] Work Phone: 04-10-2016 [id number] Samantha Penaloza RN [facility] Work Phone: 04-10-2016 influenza, injectabl e, quadrivalent, preservative free Tess Lange LPN Pulmonary [facility] Work Phone: 04-10-2016 [id number] Tess Lange LPN Pulmona ry Medicine [facility] Work Phone: 03-01-2016 pneumococcal polysaccharide vaccine, 23 valent Giselle Cortez RN [facility] Work Phone: 09-15-2014 pneumococcal conjuga te vaccine, 13 valent Giselle Cortez RN [facility] 04-08-2014 influenza, seasonal, injectable Giselle Cortez RN [facility] 06-09-2013 influenza virus vacc ine, unspecified formulation Giselle Cortez RN [facility] Work Phone: 05-23-2010 pneumococcal polysaccharide vaccine, 23 valent Giselle Cortez RN Work Phone: [facility] Work Phone: 05-14-2008 influenza virus vacc ine, whole virus Giselle Cortez RN [facility] Payers Date Payer Category Payer Medicare 2015 Medicare MEDICARE MEDICAR E A AND B [id number] 2015-Present [phone] [address] [address] [place] [address] Medicare [id number] 2013 Private Health Insurance [facility] AARP SUPPLEMENT [id number] 2013-Present [phone] [address] [place] [address] Indemnity [id number] 2013 Private Health Insurance [facility] AARP SUPPLEMENT [id number] 2013-Present [phone] [address] [place] [address] Indemnity [id number] 2013 Unknown [id number] 2006 Medicare [id number] 1945 Unknown [id number] Social History Date Type Detail Facility Start: 12-03-2012 End: 02-24-2022 Tobacco smoking status NHIS Ex-smoker [facility] Work Phone: End: 05-23-2012 History of tobacco use Current smoker [facility] Work Phone: End: 05-23-2012 History of tobacco use Cigarette Smoker [facility] Work Phone: Start: 12-03-2012 End: 11-13-2022 Cigarettes smoked current (pack per day) - Reported 1 [facility] Work Phone: Start: 12-03-2012 End: 02-24-2022 Tobacco use and exposure Smokeless tobacco non-user [facility] Work Phone: Start: 09-06-2021 End: 03-31-2023 Alcohol intake Current drinker of alcohol (finding) [facility] Start: 1945 Sex Assigned At Not on file [facility] Start: 08-07-2021 End: 03-17-2022 Exposure to SARS-CoV-2 (event) Not sure [facility] Start: 11-13-2022 End: 01-11-2023 Tobacco use panel [facility] Work Phone: Adult Depression Screening Assessment 0 [facility] Work Phone: NEGATED: Highlighted row - - [facility] Work Phone: Goals Date Patient Goal Desired Activity /State Personal health goal Functional Status Date Assessment Result Facility NEGATED: Highlighted row Functional performance Functional status health issues are not documented [facility] Work Phone: Mental Status Date Assessment Result Facility NEGATED: Highlighted row Cognitive function [Interpretation] Cognitive status health issues are not documented Disease [facility] Work Phone: Clinical Notes 11-08-2020 to 06-25-2023 Lopez Brown, SALVADOR - 06/22/2023 10:08 AM ESTTelephone Encounter - Jennifer Hawthorne LPN - 06/07/2023 4:46 PM ESTTelephone Encounter - Ranjana Tamayo LPN - 06/07/2023 4:43 PM EST Note Date & Type Note Facility 06-25-2023 Note [facility] 06-22-2023 Note [facility] 06-22-2023 History of Present illness Narrative CDM Telephonic Outreach Provider Action/FYI Contacted for: Routine Telephonic Outreach Contact made with patient: No, left message. Lopez Brown RN June 22, 2023 4:11 PM documented in this encounter [facility] 06-07-2023 Miscellaneous Notes Spoke with pt and information listed below given. Pt verbalizes understanding. Apt has been booked. Jennifer Hawthorne LPN Patient returned call and went over results, notes from Azul Pardo PROOF SORTER with understanding. Assisted with transfer to tip stitcher to get appt set up. 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 I have placed a referral to spine for further eval. documented in this encounter [facility] 06-04-2023 Note [facility] 06-04-2023 Note [facility] 06-04-2023 History of Present illness Narrative Chief Complaint Patient presents with: Hospital F/U HPI Francisco Faith is a 77 year old male who presents here today for Above Complaints.. Patient presents for hospital discharge following covid 19. Patient reports he is doing well and feels well. Patient denies cough, shortness of breath. Patient has COPD and feels he has returned to his baseline. Patient has appointment with Pulm in near future. Patient reports acute on chronic low back pain. Past medical history, appointments, medications, allergies reviewed. 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) 04/04/2021 Benign non-nodular prostatic hyperplasia with lower urinary tract symptoms 03/01/2016 Bilateral carotid artery disease ([facility]) 10/25/2015 US 11/2016: 20-40% on right 60-80% on left US 11/2017: stable with 20-40% on right and 60-80% on left Blood type O+ 03/29/2020 Cardiomyopathy, ischemic 09/26/2013 Chronic pain 09/11/[address] Barnett. COLD (chronic obstructive lung disease) ([facility]) 02/01/2015 Moderate: Seeing Dr. Slaughter Combined forms of age-related cataract of right eye 10/02/2020 Controlled type 2 diabetes mellitus without complication, without long-term current use of insulin ([facility]) 06/20/2016 Coronary artery disease involving coronary bypass graft of ak chin heart without angina pectoris 02/01/[address] Garcia pacemaker/defib, 3 stents and 4 vessle CABG Current use of proton pump inhibitor 03/24/2017 DDD (degenerative disc disease), lumbar 06/13/2013 Diabetic eye exam ([facility]) 11/13/2016 Last done: 11/13/2016 Esophageal spasm 04/18/2017 Essential hypertension 10/02/2020 Essential hypertension with goal blood pressure less than 140/90 10/25/2015 Ex-smoker 12/10/2012 Family history of prostate cancer 12/10/2012 Gastroesophageal reflux disease without esophagitis 10/25/2015 Gynecomastia 01/22/2013 Lt side, Biopsy neg. History of cutaneous T-cell lymphoma History of CVA (cerebrovascular accident) 09/11/2013 In 2010. If tired left leg will drag slightly. ICD (implantable cardioverter-defibrillator), biventricular, in situ 09/26/2013 Lumbago 02/20/2013 Lumbar spondylosis 06/13/2013 Lung nodule < 6cm on CT 05/23/[address] chest 05/2018. Measuring up to 4mm. Repeat CT in 1 year. 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 Nocturia 12/10/2012 Obstructive sleep apnea syndrome 10/25/2015 CPAP 13 cm H2O On amiodarone therapy 01/04/2021 Per cardio< Dr. Garcia for paroxysmal A. Flutter, TV started 01/03/2021 Other malignant neoplasm of other specified sites of skin 11/02/2008 Pacemaker 11/08/2020 Pain in joint, shoulder region 09/22/2013 Peripheral T-cell lymphoma, pleomorphic small cell (HCC) Peripheral vascular disease, unspecified (HCC) Punctate keratitis, bilateral 10/02/2020 PVD (peripheral vascular disease) (HCC) 12/03/2012 3 stents to left leg Regular astigmatism of right eye 10/27/2020 S/P CABG x 3 09/26/2013 Seborrheic keratoses, inflamed 05/16/2017 left upper chest treated with cryo 05/16/2017 Spinal stenosis of lumbar region 02/20/2013 Squamous cell carcinoma of skin 08/02/2021 trilium alturas Status post cataract extraction and insertion of intraocular lens of left eye 12/07/2020 Stenosis of left carotid artery 04/04/2021 Type 2 diabetes mellitus with peripheral vascular disease (HCC) 12/03/2012 3 stents to left leg 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) 10/02/2020 Urge incontinence 03/01/2016 Previous Surgical History PAST SURGICAL HISTORY Procedure Laterality Date *STRESS TEST PC 11/14/2016 Negative 2D ECHO (EXEP) 01/19/2021 EF=55%, LA mildly enlarged, 1-2+ TI, 2D ECHO COMPLETE INP 08/27/2012 EF=50%, trace MR andTR ANES PERMANENT TRANSVENOUS PACEMAKER INSERTION 03/2012 Permanent Pacemaker (revision) ARTHRP KNE CONDYLE&PLATU MEDIAL&LAT COMPARTMENTS 03/30/2020 BYP OTH/THN VEIN FEMORAL-POPLITEAL right leg 11/2012 Bypass graft fem-pop BYPASS COMPOSITE GRAFT PROSTHETIC & VEIN left leg 03/2012 Bypass graft other, composite COLONOSCOPY FLX DX W/COLLJ SPEC WHEN PFRMD 03/08/2006 Colonoscopy Christian - no polyps COLONOSCOPY FLX DX W/COLLJ SPEC WHEN PFRMD 08/14/2000 Colonoscopy Christian- no polyps COLONOSCOPY FLX DX W/COLLJ SPEC WHEN PFRMD 02/26/2013 Colonoscopy, no polyps, recheck 10 yrs CORONARY ARTERY BYP W/VEIN & ARTERY GRAFT 3 VEIN 05/2012 CABG, three grafts CORONARY STENT EA VESSEL 2004 Drug eluting ESOPHAGOGASTRODUODENOSCOPY TRANSORAL DIAGNOSTIC 03/08/2006 EGD [facility] PAST SURGICAL HISTORY OF Left 01/01/2020 left knee arthroscopic chondroplasty medial and patello PERMANENT PACEMAKER 2005 STRESS TEST 10/30/2017 normal stress with EF=64% Family History FAMILY HISTORY Problem Relation Age of Onset Stroke Mother 89 Heart Father 76 Prostate Cancer Father Prostate Cancer Brother Cancer Maternal Grandfather lung Patient Allergies ALLERGIES Allergen Reactions Sulfa (Sulfonamide * Unknown unknown, as a child Cipro [Ciprofloxaci* Swelling Current Medications Current Outpatient Medications on File Prior to Visit Medication Sig isosorbide mononitrate ER (IMDUR) 30 mg 24 hr tablet Take 1 tablet by mouth two times a day. montelukast (SINGULAIR) 10 mg tablet Take 1 tablet by mouth daily at bedtime. metFORMIN (GLUCOPHAGE) 500 mg tablet Take 1 tablet by mouth two times a day with meals. nystatin (MYCOSTATIN) 100,000 unit/mL suspension Take 5 mL by mouth four times daily. 1tsp swish in mouth for several minutes, then swallow (or expectorate) 4 times daily until gone. furosemide (LASIX) 40 mg tablet Take 1 tablet by mouth once daily for 5 days. amLODIPine (NORVASC) 5 mg tablet Take 1 tablet by mouth once daily. ramipril (ALTACE) 10 mg capsule Take 1 capsule by mouth twice daily. atorvastatin (LIPITOR) 80 mg tablet Take 1 tablet by mouth daily at bedtime. loratadine (CLARITIN) 10 mg tablet Take 1 tablet by mouth once daily. Benzonatate 200 mg capsule Take 1 capsule by mouth three times daily as needed. fluticasone (FLONASE) 50 mcg/actuation nasal spray 1 spray each nostril 1-2 times a day nystatin (MYCOSTATIN) powder Apply 1 application to affected area four times daily. cholecalciferol, vitamin D3, (VITAMIN D3 ORAL) Take by mouth. albuterol HFA (PROAIR HFA) 90 mcg/actuation inhaler Inhale 2 Puffs as instructed every 4 hours as needed for wheezing/shortness of breath. acetaminophen (TYLENOL ARTHRITIS PAIN) 650 mg CR tablet Take 2 tablets by mouth every 8 hours as needed. amiodarone (PACERONE) 200 mg tablet Take 1 tablet by mouth once daily. Per Cardio, Dr. Garcia carvedilol (COREG) 6.25 mg tablet Take 1 tablet by mouth twice daily with meals. apixaban (ELIQUIS) 5 mg tab(s) Take 1 tablet by mouth twice daily. Per Dr. Garcia nitroglycerin sublingual (NITROQUICK) 0.4 mg SL tablet Dissolve 1 tablet under the tongue every 5 minutes as needed for Chest Pain. albuterol (PROVENTIL) 2.5 mg /3 mL (0.083 %) nebulizer solution Inhale 1 vial (3 ml) via nebulizer every 4 hours as needed for wheezing/shortness of breath. Use over 5-15 minutes SYMBICORT 160-4.5 mcg/actuation inhaler Inhale 2 Puffs as instructed twice daily. COMPOUNDED PRESCRIPTION CPAP at 13 crainal nerves H2O with humidification, medium [place] Simplus full face mask without chin strap and appropriate supplies. # one device Dx: G47.33 COMPOUNDED PRESCRIPTION CPAP 13 cmH2O with humidification. A [place] [employer] Simplus full face mask without chin strap. Dx: G47.33 No current facility-administered medications on file prior to visit. Social History Social History Tobacco Use Smoking status: Former Packs/day: 1.00 Years: 40.00 Additional pack years: 0.00 Total pack years: 40.00 Types: Cigarettes Quit date: 05/23/2012 Years since quittin.0 Smokeless tobacco: Never Vaping Use Vaping Use: Never used Substance Use Topics Alcohol use: Yes Comment: wine on occasion Drug use: Not Currently Review of Symptoms REVIEW OF SYSTEMS SEE HPI EXAM: BP 138/74 Pulse 70 Resp 18 Wt 92.1 kg (203 lb) SpO2 98% BMI 31.79 kg/m General Appearance: Well appearing, alert, in no acute distress, well-hydrated, well nourished.. Lungs: Lungs clear to auscultation. No wheezing, rhonchi, rales.. Heart: RRR without murmur, gallop, or rubs. No ectopy. Health Maintenance List RSV Vaccine(1 - 1-dose 60+ series) Never done Dilated Retinal Exam due on 03/09/2023 Influenza Vaccine(1) due on 03/09/2023 Shingrix Vaccine(1 of 2) due on 03/30/2024 Diabetic Foot Exam due on 09/28/2023 HbA1C due on 09/28/2023 Urine Albumin:Creatinine Ratio due on 03/30/2024 LDL Cholesterol due on 03/30/2024 Annual PCP Team Chronic Disease Visit due on 03/30/2024 BP Controlled (<130/80) due on 03/30/2024 DTaP,Tdap,Td Vaccine(2 - Td or Tdap) due on 04/19/2027 Advance Directive Discussion Completed Depression Assessment Completed Pneumococcal Vaccine: 65+ Completed HPV Vaccine Aged Out Hepatitis B Vaccine Discontinued Spirometry Discontinued Colorectal Cancer Screening Discontinued Covid-19 Vaccine Discontinued ASSESSMENT/PLAN: 1. COVID-19 - ICD9: 079.89, ICD10: U07.1 (primary diagnosis) -Resolved 2. Chronic obstructive pulmonary disease, unspecified COPD type (HCC) - ICD9: 496, ICD10: J44.9 -Currently stable -Follows with [place] [facility] Azul Pardo APRN.PLANT PATHOLOGIST documented in this encounter [facility] 05-26-2023 Miscellaneous Notes Pt is requesting refills. Rescheduled pt's hosp f/u for 06/04 with Azul. Soonest pt could schedule d/t going out of town next week. Call pt only if problem in refilling rx's. Jameel Marquez LPN documented in this encounter [facility] 05-15-2023 Note [facility] 05-01-2023 Miscellaneous Notes Let patient know script for thrush sent to pharmacy. The following approved medication requests have been transmitted electronically. Requested Prescriptions Signed Prescriptions Disp Refills nystatin (MYCOSTATIN) 100,000 unit/mL suspension 200 mL 0 Sig: Take 5 mL by mouth four times daily. 1tsp swish in mouth for several minutes, then swallow (or expectorate) 4 times daily until gone. Authorizing Provider: FITO CHAVEZ MD Contacted patient to update on his condition. Patient indicated that he is feeling much better. Patient was ok with canceling this weeks appointment. He will come in on 05/26. Patient did note that he has thrush again. He indicated that you had prescribed liquid for him to take. Patient uses [facility] Fore[facility] Corin Cardenas MA documented in this encounter [facility] 04-17-2023 Note [facility] 04-17-2023 History of Present illness Narrative CDM Telephonic Outreach Provider Action/FYI Doing well Noted a cough for a few weeks. Otherwise symptomatic COPD uses inhaler daily as directed. No need for nebulizer/rescue Completed blood work and PCP advised 5 days of lasix Completed, cough improved. COPD/HTN/AFIB/DM B/p at goal Discussion regarding aging,care and AD Reports he has had discussions with children regarding his wishes at end of life. Empathetic listening. No additional concerns Education regarding COPD zones Contacted for: Routine Telephonic Outreach Contact made with patient: Yes Patient identified by name and date of . Discussed care with patient Are you experiencing any new or worsening symptoms you need to talk about today? No Disease Specific Do you check your blood pressure at home? No Do you have new or worsening shortness of breath with activity? No Do you have new or worsening cough? No Do you have new or worsening wheezing? No Do you need to use your rescue (Albuterol) inhaler or nebulizer more often than normal? No Based on assessment rn, the following disposition is advised: No symptoms or symptoms present, not severe. Routed to: No Action Needed KEITH Education Provided this Outreach: No Lopez Brown RN April 17, 2023 1:43 PM documented in this encounter [facility] 04-05-2023 Miscellaneous Notes Pt returned call and given provider's message below with verbalized understanding. Patient agreeable. Scheduled appt for next Sun. Called and left a voicemail for the Patient to call back and ask for a nurse to receive the providers message. Shae Villalta RN Let patient know his one blood test showed a elevated result that could indicate congestive heart failure (fluid in the lungs) though it could also be increased due to age) I want to add on a diuretic called lasix 40 mg ad au for 5 days and see him in the office in a week. Script sent. The following approved medication requests have been transmitted electronically. Requested Prescriptions Signed Prescriptions Disp Refills furosemide (LASIX) 40 mg tablet 5 tablet 0 Sig: Take 1 tablet by mouth once daily for 5 days. Authorizing Provider: FITO CHAVEZ MD Pt called and is notified of providers results and message. Pt voices understanding. He states his breathing and cough aren't any better but they aren't worse. He is still coughing up thick phlegm clear/monte/pink. Shae Villalta RN Let patient know CBC was ok except for an increase in the white blood cell count due to the pneumonia. The lipid panel, urine tests, thyroid lab, A1c, and complete electrolyte panel were all ok. See if since being on the antibiotic if he feels his breathing has improved. documented in this encounter [facility] 04-05-2023 Miscellaneous Notes Patient notified of results, verbalizes understanding of instructions. Neena Cuenca LPN Let patient know his stress test was ok. documented in this encounter [facility] 04-03-2023 Note HNO ID: [id number] Author: Maritza Alegria CNMT Service: Radiology Author Type: Technologist Type: Progress Notes Filed: 04/03/2023 9:03 AM Note Text: RADIOLOGY SERVICE PROGRESS NOTE SERVICE DATE: 04/03/2023 SERVICE TIME: 9:02 AM PATIENT IDENTITY VERIFICATION COMPLETED USING TWO (2) STANDARD IDENTIFIERS: Name and Date of confirmed by patient verbally and Name and Date of confirmed by identification band FALL SCREENING: Has the patient had 2 falls in the last year or 1 fall with injury or currently using an Ambulatory Assistive Device (Walker, Cane, Wheelchair, Crutches, etc.)? No PATIENT GENDER DATA: .male ALLERGIES: Reviewed and unchanged MEDICATIONS REVIEWED: Not applicable PATIENT RELEVANT IMPLANT DATA REVIEWED: Not Applicable CREATININE: Creatinine Date Value Ref Range Status 03/30/2023 1.00 0.73 - 1.22 mg/dL Final 09/27/2022 1.19 0.73 - 1.22 mg/dL Final 02/24/2022 1.29 (H) 0.73 - 1.22 mg/dL Final Estimated Glomerular Filtration Rate Date Value Ref Range Status 03/30/2023 77 >=60 mL/min/1.73m? Final Comment: Estimated Glomerular Filtration Rate (eGFR) is calculated using the 2020 CKD-EPI creatinine equation. This equation utilizes serum creatinine, sex, and age as parameters. The creatinine assay has traceable calibration to isotope dilution-mass spectrometry. Refer to KDIGO guidelines for clinical interpretation. In patients with unstable renal function, e.g. those with acute kidney injury, the eGFR may not accurately reflect actual GFR. eGFR- Date Value Ref Range Status 08/02/2021 >60 Final P.O.C.T. RESULTS: N/A April 03, [address] PERFORMED: No IV SITE: Ambulatory: A peripheral IV was started in the Right antecubital site with a Angio cath: 22 gauge. POST EXAM PIV STATUS: Discontinued PROCEDURE TYPE: NM Stress: 12.9 mCi [id number] was administered IV for Rest Imaging at 7:55 by mm. 33.6 mCi [id number] was administered IV for Stress Imaging at 8:55 by mm. PATIENT DISCHARGED TO: Ambulatory patient, left MI department area. A Diagnostic radioactive procedure has taken place, with no further precautions necessary other than routine body substance precautions. More information regarding radiation safety can be found using this link: [email or web address] SIGNATURE: Maritza Alegria [facility] PATIENT NAME: Francisco Faith DATE: April 03, 2023 TIME: 9:02 AM PAGER/CONTACT #: [facility] 04-02-2023 Miscellaneous Notes Spoke with patient regarding reminder for stress test tomorrow and given instructions. documented in this encounter [facility] 04-02-2023 Miscellaneous Notes Patient notified of results and provider's instructions. Patient verbalizes understanding. Tierney De Jesus RN Left message for pt to contact office. Jameel Marquez LPN Please let patient know that CT shows evidence of possible pneumonia. I see he was recently started on another atb. Will have him continue that. Maylin Pimentel PA-C documented in this encounter [facility] 03-30-2023 Note [facility] 03-30-2023 Miscellaneous Notes Pt notified. He verbalized understanding. Joao Wilson LPN Let patient know his chest x-ray shows he may have a developing pneumonia in the left lung. An antibiotic has been sent to the pharmacy. documented in this encounter [facility] 03-30-2023 Note [facility] 03-30-2023 Instructions Fito Chavez MD - 03/30/2023 11:31 AM EDT Consider getting the shingrix vaccine for the prevention of shingles from a local pharmacy Also work on getting a flu vaccine in mid to late Apr. documented in this encounter [facility] 03-30-2023 History of Present illness Narrative Chief Complaint No chief complaint on file. HPI Francisco Faith is a 77 year old male who presents here today for Above Complaints. and Chronic Medical Conditions.. Patient with hx of CAD, cardiomyopathy, DM 2, HTN, hyperlipidemia, carotid artery stenosis, COPD, GERD, t-cell lymphoma, Hx of CVA, anxiety, BHARAT, chronic pain as well as those reviewed and addressed below and in ROS. Patient continues to have a persistent cough. He seen [facility] back in February and had course of antibiotics and prednisone without resolution. Just had lung CT done yesterday and read is still pending. Patient sees his quality process auditor next week. Has has not discussed this with him. With the cough he mostly brings up clear mucus and sometimes has light monte mucus or pinkish. Patient has been getting low back pain that worsens with prolonged walking and sometimes getting cramping in the legs. When he goes to a store if he uses a grocery cart to lean on he gets much less pain. Past medical history, appointments, medications, allergies reviewed. 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) 04/04/2021 Benign non-nodular prostatic hyperplasia with lower urinary tract symptoms 03/01/2016 Bilateral carotid artery disease (HCC) 10/25/2015 US 11/2016: 20-40% on right 60-80% on left US 11/2017: stable with 20-40% on right and 60-80% on left Blood type O+ 03/29/2020 Cardiomyopathy, ischemic 09/26/2013 Chronic pain 09/11/[address] Barnett. COLD (chronic obstructive lung disease) ([facility]) 02/01/2015 Moderate: Seeing Dr. Slaughter Controlled type 2 diabetes mellitus without complication, without long-term current use of insulin ([facility]) 06/20/2016 Coronary artery disease involving coronary bypass graft of ak chin heart without angina pectoris 02/01/[address] Garcia pacemaker/defib, 3 stents and 4 vessle CABG Current use of proton pump inhibitor 03/24/2017 DDD (degenerative disc disease), lumbar 06/13/2013 Diabetic eye exam ([facility]) 11/13/2016 Last done: 11/13/2016 Esophageal spasm 04/18/2017 Essential hypertension 10/02/2020 Essential hypertension with goal blood pressure less than 140/90 10/25/2015 Ex-smoker 12/10/2012 Family history of prostate cancer 12/10/2012 Gastroesophageal reflux disease without esophagitis 10/25/2015 Gynecomastia 01/22/2013 Lt side, Biopsy neg. History of cutaneous T-cell lymphoma History of CVA (cerebrovascular accident) 09/11/2013 In 2010. If tired left leg will drag slightly. ICD (implantable cardioverter-defibrillator), biventricular, in situ 09/26/2013 Lumbago 02/20/2013 Lumbar spondylosis 06/13/2013 Lung nodule < 6cm on CT 05/23/[address] chest 05/2018. Measuring up to 4mm. Repeat CT in 1 year. 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 Nocturia 12/10/2012 Obstructive sleep apnea syndrome 10/25/2015 CPAP 13 cm H2O On amiodarone therapy 01/04/2021 Per cardio< Dr. Garcia for paroxysmal A. Flutter, TV started 01/03/2021 Other malignant neoplasm of other specified sites of skin 11/02/2008 Pain in joint, shoulder region 09/22/2013 Peripheral T-cell lymphoma, pleomorphic small cell (HCC) Peripheral vascular disease, unspecified (HCC) PVD (peripheral vascular disease) (HCC) 12/03/2012 3 stents to left leg S/P CABG x 3 09/26/2013 Seborrheic keratoses, inflamed 05/16/2017 left upper chest treated with cryo 05/16/2017 Spinal stenosis of lumbar region 02/20/2013 Stenosis of left carotid artery 04/04/2021 Type 2 diabetes mellitus with peripheral vascular disease (HCC) 12/03/2012 3 stents to left leg Urge incontinence 03/01/2016 Previous Surgical History PAST SURGICAL HISTORY Procedure Laterality Date *STRESS TEST PC 11/14/2016 Negative 2D ECHO (EXEP) 01/19/2021 EF=55%, LA mildly enlarged, 1-2+ TI, 2D ECHO COMPLETE INP 08/27/2012 EF=50%, trace MR andTR ANES PERMANENT TRANSVENOUS PACEMAKER INSERTION 03/2012 Permanent Pacemaker (revision) ARTHRP KNE CONDYLE&PLATU MEDIAL&LAT COMPARTMENTS 03/30/2020 BYP OTH/THN VEIN FEMORAL-POPLITEAL right leg 11/2012 Bypass graft fem-pop BYPASS COMPOSITE GRAFT PROSTHETIC & VEIN left leg 03/2012 Bypass graft other, composite COLONOSCOPY FLX DX W/COLLJ SPEC WHEN PFRMD 03/08/2006 Colonoscopy [facility] - no polyps COLONOSCOPY FLX DX W/COLLJ SPEC WHEN PFRMD 08/14/2000 Colonoscopy [facility]- no polyps COLONOSCOPY FLX DX W/COLLJ SPEC WHEN PFRMD 02/26/2013 Colonoscopy, no polyps, recheck 10 yrs CORONARY ARTERY BYP W/VEIN & ARTERY GRAFT 3 VEIN 05/2012 CABG, three grafts CORONARY STENT EA VESSEL 2004 Drug eluting ESOPHAGOGASTRODUODENOSCOPY TRANSORAL DIAGNOSTIC 03/08/2006 EGD [facility] PAST SURGICAL HISTORY OF Left 01/01/2020 left knee arthroscopic chondroplasty medial and patello PERMANENT PACEMAKER 2006 STRESS TEST 10/30/2017 normal stress with EF=64% Family History FAMILY HISTORY Problem Relation Age of Onset Stroke Mother 89 Heart Father 76 Prostate Cancer Father Prostate Cancer Brother Cancer Maternal Grandfather lung Patient Allergies ALLERGIES Allergen Reactions Sulfa (Sulfonamide * Unknown unknown, as a child Cipro [Ciprofloxaci* Swelling Current Medications Current Outpatient Medications on File Prior to Visit Medication Sig loratadine (CLARITIN) 10 mg tablet Take 1 tablet by mouth once daily. guaiFENesin (MUCINEX) 600 mg 12 hr tablet Take 2 tablets by mouth twice daily for 14 days. Benzonatate 200 mg capsule Take 1 capsule by mouth three times daily as needed. montelukast (SINGULAIR) 10 mg tablet Take 1 tablet by mouth daily at bedtime. metFORMIN (GLUCOPHAGE) 500 mg tablet Take 1 tablet by mouth twice daily with meals. amLODIPine (NORVASC) 10 mg tablet Take 1 tablet by mouth once daily. fluticasone (FLONASE) 50 mcg/actuation nasal spray 1 spray each nostril 1-2 times a day ramipril (ALTACE) 10 mg capsule Take 1 capsule by mouth twice daily. atorvastatin (LIPITOR) 80 mg tablet Take 1 tablet by mouth daily at bedtime. nystatin (MYCOSTATIN) powder Apply 1 application to affected area four times daily. isosorbide mononitrate ER (IMDUR) 30 mg 24 hr tablet Take 1 tablet by mouth twice daily. cholecalciferol, vitamin D3, (VITAMIN D3 ORAL) Take by mouth. albuterol HFA (PROAIR HFA) 90 mcg/actuation inhaler Inhale 2 Puffs as instructed every 4 hours as needed for wheezing/shortness of breath. acetaminophen (TYLENOL ARTHRITIS PAIN) 650 mg CR tablet Take 2 tablets by mouth every 8 hours as needed. amiodarone (PACERONE) 200 mg tablet Take 1 tablet by mouth once daily. Per Cardio, Dr. Garcia carvedilol (COREG) 6.25 mg tablet Take 1 tablet by mouth twice daily with meals. apixaban (ELIQUIS) 5 mg tab(s) Take 1 tablet by mouth twice daily. Per Dr. Garcia nitroglycerin sublingual (NITROQUICK) 0.4 mg SL tablet Dissolve 1 tablet under the tongue every 5 minutes as needed for Chest Pain. albuterol (PROVENTIL) 2.5 mg /3 mL (0.083 %) nebulizer solution Inhale 1 vial (3 ml) via nebulizer every 4 hours as needed for wheezing/shortness of breath. Use over 5-15 minutes SYMBICORT 160-4.5 mcg/actuation inhaler Inhale 2 Puffs as instructed twice daily. COMPOUNDED PRESCRIPTION CPAP at 13 crainal nerves H2O with humidification, medium [place] Simplus full face mask without chin strap and appropriate supplies. # one device Dx: G47.33 COMPOUNDED PRESCRIPTION CPAP 13 cmH2O with humidification. A [place] [employer] Simplus full face mask without chin strap. Dx: G47.33 No current facility-administered medications on file prior to visit. Social History Social History Tobacco Use Smoking status: Former Packs/day: 1.00 Years: 40.00 Additional pack years: 0.00 Total pack years: 40.00 Types: Cigarettes Quit date: 05/23/2012 Years since quittin.8 Smokeless tobacco: Never Vaping Use Vaping Use: Never used Substance Use Topics Alcohol use: Yes Comment: wine on occasion Drug use: Not Currently Review of Symptoms REVIEW OF SYSTEMS GENERAL: No significant weight loss, malaise or fevers NECK: Negative for lumps, goiter, pain and significant neck swelling RESPIRATORY: See HPI Patient has noticed increased wheezing, COPD, dyspnea or shortness of breath over the past month. CARDIOVASCULAR: few days ago he has mid sternal chest pain, pain into the left arm. No jaw pain. [place] tired. Some nausea. No diaphoresis. Pain resolved on its own. Had concerned going to the ER but held of. GI: No diarrhea. Last night had nausea and vomiting twice. Was shaking (no chest pain with it.) says he felt bad. HEMATOLOGY/LYMPHOLOGY: Negative for prolonged bleeding, bruising easily or swollen nodes ENDOCRINE: has melinda more fatigued. Blood sugars once a day random have been 110-125. NEURO: No history of headaches, syncope, paralysis, seizures or tremors. Slight increase in the dizziness with position changes. EXAM: BP 82/56 Pulse 80 Resp 16 Wt 93 kg (205 lb) SpO2 93% BMI 32.11 kg/m BP 113/68 Pulse 80 Resp 16 Wt 93 kg (205 lb) SpO2 93% BMI 32.11 kg/m Last 4 Encounter Wt Readings: Date: Wt: 03/30/2023 93 kg (205 lb) 03/19/2023 93.9 kg (207 lb) 02/14/2023 94.8 kg (209 lb) 02/13/2023 95.7 kg (211 lb) General Appearance: alert, in no acute distress, well-hydrated, well nourished. Appears not to be feeling well. Eyes: Anicteric sclera. Pupils are equally round and reactive to light. Extraocular movements are intact. . Ears: External ears, TM's normal, canals clear. Nose/Sinuses: Nares normal, septum midline, mucosa normal, no drainage or sinus tenderness. Oropharynx: Lips, mucosa, and tongue normal, teeth and gums normal normal. MMM and pink. Has thrush on the upper soft palate and oral pharynx. Neck: Supple, no adenopathy; thyroid symmetric, normal size, no bruits. Lungs: some bilateral lower lung field rhonchi. No wheezing, rales.. Heart: RRR without murmur, gallop, or rubs. No ectopy. Abdomen: Normal abdominal exam, Abdomen soft, non-tender. Bowel sounds normal. No masses, organomegaly. Extremities: No deformities, edema, skin discoloration, Good capillary refill. . Peripheral Pulses: Normal. Neurologic: Gait normal. Sensation to light touch and crainal nerves 2-12 intact.. Health Maintenance List Shingrix Vaccine(1 of 2) Never done Hepatitis B Vaccine(1 of 3 - Risk 3-dose series) Never done Urine Albumin:Creatinine Ratio due on 02/24/2023 HbA1C due on 03/30/2023 Dilated Retinal Exam due on 03/09/2023 Influenza Vaccine(1) due on 03/09/2023 LDL Cholesterol due on 09/28/2023 Diabetic Foot Exam due on 09/28/2023 Annual PCP Team Chronic Disease Visit due on 03/19/2024 BP Controlled (<130/80) due on 03/19/2024 DTaP,Tdap,Td Vaccine(2 - Td or Tdap) due on 04/19/2027 Advance Directive Discussion Completed Depression Assessment Completed Pneumococcal Vaccine: 65+ Completed HPV Vaccine Aged Out Spirometry Discontinued Colorectal Cancer Screening Discontinued Covid-19 Vaccine Discontinued Data reviewed In office EKG: Ventricular paced rhythm. No new changes when compared to EKG from 11/14/2016. Orthostatics in the office were borderline. 03/30/23 1132 03/30/23 1315 03/30/23 1316 03/30/23 1317 BP: 113/68 Pulse: Resp: SpO2: Weight: Orthostatic BP: 124/72 112/67 106/64 BP Position: Supine Sitting Standing Orthostatic Pulse: 76 74 87 A/P ASSESSMENT/PLAN: 1. Type 2 diabetes mellitus with peripheral vascular disease ([facility]) - ICD9: 250.70, 443.81, ICD10: E11.51 (primary diagnosis) -await labs - Continue current medications - Counseled on healthy diet and regular exercise Check - ALBUMIN/CREAT RATIO RND UR - COMP METABOLIC PANEL - HGB A1C - URINALYSIS, WITH MICROSCOPIC - LIPID PANEL, NONFASTING - CBC + DIFF 2. Controlled type 2 diabetes mellitus with diabetic peripheral angiopathy without gangrene, without long-term current use of insulin ([facility]) - ICD9: 250.70, 443.81, ICD10: E11.51 - as above Check - ALBUMIN/CREAT RATIO RND UR - COMP METABOLIC PANEL - HGB A1C - URINALYSIS, WITH MICROSCOPIC - LIPID PANEL, NONFASTING - CBC + DIFF 3. Type 2 diabetes mellitus without retinopathy ([facility]) - ICD9: 250.00, ICD10: E11.9 - see above Check - ALBUMIN/CREAT RATIO RND UR - COMP METABOLIC PANEL - HGB A1C - URINALYSIS, WITH MICROSCOPIC - LIPID PANEL, NONFASTING - CBC + DIFF 4. Diabetic eye exam ([facility]) - ICD9: V72.0, 250.00, ICD10: Z01.00, E11.9 - up to date 5. Essential hypertension with goal blood pressure less than 140/90 - ICD9: 401.9, ICD10: I10 - Controlled but too low causing dizziness. - Continue current medications - Decrease amlodipine to 5 mg a day. - Recommend home blood pressure monitoring, to bring results to next visit - Encouraged sodium restriction, DASH or Mediterranean diet - Recommend regular aerobic exercise Check - COMP METABOLIC PANEL - URINALYSIS, WITH MICROSCOPIC - LIPID PANEL, NONFASTING 6. Mixed hyperlipidemia - ICD9: 272.2, ICD10: E78.2 - await labs - Continue current medications - Counseled on healthy diet and regular exercise - COMP METABOLIC PANEL - URINALYSIS, WITH MICROSCOPIC - LIPID PANEL, NONFASTING 7. Coronary artery disease involving coronary bypass graft of ak chin heart without angina pectoris - ICD9: 414.05, ICD10: I25.810 - concern for potential blockage. Check - ECG COMPLETE - LIPID PANEL, NONFASTING - INSERT IV ([place], [place]) - IV DISCONTINUE - NM CARDIAC PERF STRESS/PHARM - REGADENOSON 0.4 MG/5 ML INTRAVENOUS SYRINGE - AMINOPHYLLINE 250 MG/10 ML INTRAVENOUS SOLUTION - METOPROLOL TARTRATE 5 MG/5 ML INTRAVENOUS SOLUTION Patient with COPD and paced rhythm; not a treadmill/EKG only candidate. 8. Cardiomyopathy, ischemic - ICD9: 414.8, ICD10: I25.5 - as above Check - ECG COMPLETE - NT PRO BNP - INSERT IV ([place], [place]) - IV DISCONTINUE - NM CARDIAC PERF STRESS/PHARM - REGADENOSON 0.4 MG/5 ML INTRAVENOUS SYRINGE - AMINOPHYLLINE 250 MG/10 ML INTRAVENOUS SOLUTION - METOPROLOL TARTRATE 5 MG/5 ML INTRAVENOUS SOLUTION Patient with COPD and paced rhythm; not a treadmill/EKG only candidate. 9. Angina pectoris (HCC) - ICD9: 413.9, ICD10: I20.9 Check - ECG COMPLETE - INSERT IV ([place], [place]) - IV DISCONTINUE - NM CARDIAC PERF STRESS/PHARM - REGADENOSON 0.4 MG/5 ML INTRAVENOUS SYRINGE - AMINOPHYLLINE 250 MG/10 ML INTRAVENOUS SOLUTION - METOPROLOL TARTRATE 5 MG/5 ML INTRAVENOUS SOLUTION Patient with COPD and paced rhythm; not a treadmill/EKG only candidate. 10. Bilateral carotid artery stenosis - ICD9: 433.10, 433.30, ICD10: I65.23 - await labs - LIPID PANEL, NONFASTING 11. Gastroesophageal reflux disease without esophagitis - ICD9: 530.81, ICD10: K21.9 - diest controlled 12. Chronic obstructive pulmonary disease, unspecified COPD type (HCC) - ICD9: 496, ICD10: J44.9 - management per Pulm 13. Obstructive sleep apnea syndrome - ICD9: 327.23, ICD10: G47.33 - seeing sleep med ez. 14. History of CVA (cerebrovascular accident) - ICD9: V12.54, ICD10: Z86.73 - no new or concerning issues. 15. Anxiety - ICD9: 300.00, ICD10: F41.9 - stable 16. Benign non-nodular prostatic hyperplasia with lower urinary tract symptoms - ICD9: 600.91, ICD10: N40.1 - stable 17. 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 Thrush (oral) - ICD9: 112.0, ICD10: B37.0 Tx with - NYSTATIN 100,000 UNIT/ML ORAL SUSPENSION 19. SOB (shortness of breath) - ICD9: 786.05, ICD10: R06.02 Check - NT PRO BNP - XR CHEST 2V FRONTAL/LAT 20. On amiodarone therapy - ICD9: V58.69, ICD10: Z79.899 Check - TSH BLD 22. Atrial flutter, unspecified type (HCC) - ICD9: 427.32, ICD10: I48.92 - management per cardio and on anticoagulation. F/u 6 months extensive I spent a total of 55 minutes on the date of the service which included preparing to see the patient, [id number] patient care, completing clinical documentation, performing a medically appropriate examination, counseling and educating the patient/family/caregiver and ordering medications, tests, or procedures. Fito Chavez MD documented in this encounter [facility] 03-29-2023 Note [facility] 03-19-2023 Note [facility] 03-19-2023 History of Present illness Narrative Chief Complaint Patient presents with: Recheck: cough HPI Francisco Faith is a 77 year old male who presents here today for Above Complaints.. Patient has had consistent cough for 4+ months. Cough is productive at times. Feels like it should be more productive. No other symptoms Past medical history, appointments, medications, allergies reviewed. 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 Barnett. COLD (chronic obstructive lung disease) ([facility]) 02/01/2015 Moderate: Seeing Dr. Slaughter Controlled type 2 diabetes mellitus without complication, without long-term current use of insulin ([facility]) 06/20/2016 Coronary artery disease involving coronary bypass graft of ak chin heart without angina pectoris 02/01/[address] Garcia pacemaker/defib, 3 stents and 4 vessle CABG Current use of proton pump inhibitor 03/24/2017 DDD (degenerative disc disease), lumbar 06/13/2013 Diabetic eye exam ([facility]) 11/13/2016 Last done: 11/13/2016 Esophageal spasm 04/18/2017 Essential hypertension 10/02/2020 Essential hypertension with goal blood pressure less than 140/90 10/25/2015 Ex-smoker 12/10/2012 Family history of prostate cancer 12/10/2012 Gastroesophageal reflux disease without esophagitis 10/25/2015 Gynecomastia 01/22/2013 Lt side, Biopsy neg. History of cutaneous T-cell lymphoma History of CVA (cerebrovascular accident) 09/11/2013 In 2010. If tired left leg will drag slightly. ICD (implantable cardioverter-defibrillator), biventricular, in situ 09/26/2013 Lumbago 02/20/2013 Lumbar spondylosis 06/13/2013 Lung nodule < 6cm on CT 05/23/[address] chest 05/2018. Measuring up to 4mm. Repeat CT in 1 year. 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 Nocturia 12/10/2012 Obstructive sleep apnea syndrome 10/25/2015 CPAP 13 cm H2O On amiodarone therapy 01/04/2021 Per cardio< Dr. Garcia for paroxysmal A. Flutter, TV started 01/03/2021 Other malignant neoplasm of other specified sites of skin 11/02/2008 Pain in joint, shoulder region 09/22/2013 Peripheral T-cell lymphoma, pleomorphic small cell (HCC) Peripheral vascular disease, unspecified (HCC) PVD (peripheral vascular disease) (HCC) 12/03/2012 3 stents to left leg S/P CABG x 3 09/26/2013 Seborrheic keratoses, inflamed 05/16/2017 left upper chest treated with cryo 05/16/2017 Spinal stenosis of lumbar region 02/20/2013 Stenosis of left carotid artery 04/04/2021 Type 2 diabetes mellitus with peripheral vascular disease (HCC) 12/03/2012 3 stents to left leg Urge incontinence 03/01/2016 Previous Surgical History PAST SURGICAL HISTORY Procedure Laterality Date *STRESS TEST PC 11/14/2016 Negative 2D ECHO (EXEP) 01/19/2021 EF=55%, LA mildly enlarged, 1-2+ TI, 2D ECHO COMPLETE INP 08/27/2012 EF=50%, trace MR andTR ANES PERMANENT TRANSVENOUS PACEMAKER INSERTION 03/2012 Permanent Pacemaker (revision) ARTHRP KNE CONDYLE&PLATU MEDIAL&LAT COMPARTMENTS 03/30/2020 BYP OTH/THN VEIN FEMORAL-POPLITEAL right leg 11/2012 Bypass graft fem-pop BYPASS COMPOSITE GRAFT PROSTHETIC & VEIN left leg 03/2012 Bypass graft other, composite COLONOSCOPY FLX DX W/COLLJ SPEC WHEN PFRMD 03/08/2006 Colonoscopy [facility] - no polyps COLONOSCOPY FLX DX W/COLLJ SPEC WHEN PFRMD 08/14/2000 Colonoscopy Christian- no polyps COLONOSCOPY FLX DX W/COLLJ SPEC WHEN PFRMD 02/26/2013 Colonoscopy, no polyps, recheck 10 yrs CORONARY ARTERY BYP W/VEIN & ARTERY GRAFT 3 VEIN 05/2012 CABG, three grafts CORONARY STENT EA VESSEL 2004 Drug eluting ESOPHAGOGASTRODUODENOSCOPY TRANSORAL DIAGNOSTIC 03/08/2006 EGD [facility] PAST SURGICAL HISTORY OF Left 01/01/2020 left knee arthroscopic chondroplasty medial and patello PERMANENT PACEMAKER 2005 STRESS TEST 10/30/2017 normal stress with EF=64% Family History FAMILY HISTORY Problem Relation Age of Onset Stroke Mother 89 Heart Father 76 Prostate Cancer Father Prostate Cancer Brother Cancer Maternal Grandfather lung Patient Allergies ALLERGIES Allergen Reactions Sulfa (Sulfonamide * Unknown unknown, as a child Cipro [Ciprofloxaci* Swelling Current Medications Current Outpatient Medications on File Prior to Visit Medication Sig Benzonatate 200 mg capsule Take 1 capsule by mouth three times daily as needed. montelukast (SINGULAIR) 10 mg tablet Take 1 tablet by mouth daily at bedtime. metFORMIN (GLUCOPHAGE) 500 mg tablet Take 1 tablet by mouth twice daily with meals. amLODIPine (NORVASC) 10 mg tablet Take 1 tablet by mouth once daily. fluticasone (FLONASE) 50 mcg/actuation nasal spray 1 spray each nostril 1-2 times a day ramipril (ALTACE) 10 mg capsule Take 1 capsule by mouth twice daily. atorvastatin (LIPITOR) 80 mg tablet Take 1 tablet by mouth daily at bedtime. nystatin (MYCOSTATIN) powder Apply 1 application to affected area four times daily. isosorbide mononitrate ER (IMDUR) 30 mg 24 hr tablet Take 1 tablet by mouth twice daily. cholecalciferol, vitamin D3, (VITAMIN D3 ORAL) Take by mouth. albuterol HFA (PROAIR HFA) 90 mcg/actuation inhaler Inhale 2 Puffs as instructed every 4 hours as needed for wheezing/shortness of breath. acetaminophen (TYLENOL ARTHRITIS PAIN) 650 mg CR tablet Take 2 tablets by mouth every 8 hours as needed. amiodarone (PACERONE) 200 mg tablet Take 1 tablet by mouth once daily. Per Cardio, Dr. Garcia carvedilol (COREG) 6.25 mg tablet Take 1 tablet by mouth twice daily with meals. apixaban (ELIQUIS) 5 mg tab(s) Take 1 tablet by mouth twice daily. Per Dr. Garcia nitroglycerin sublingual (NITROQUICK) 0.4 mg SL tablet Dissolve 1 tablet under the tongue every 5 minutes as needed for Chest Pain. albuterol (PROVENTIL) 2.5 mg /3 mL (0.083 %) nebulizer solution Inhale 1 vial (3 ml) via nebulizer every 4 hours as needed for wheezing/shortness of breath. Use over 5-15 minutes SYMBICORT 160-4.5 mcg/actuation inhaler Inhale 2 Puffs as instructed twice daily. COMPOUNDED PRESCRIPTION CPAP at 13 crainal nerves H2O with humidification, medium [employer] Simplus full face mask without chin strap and appropriate supplies. # one device Dx: G47.33 COMPOUNDED PRESCRIPTION CPAP 13 cmH2O with humidification. A [employer] Simplus full face mask without chin strap. Dx: G47.33 No current facility-administered medications on file prior to visit. Social History Social History Tobacco Use Smoking status: Former Packs/day: 1.00 Years: 40.00 Additional pack years: 0.00 Total pack years: 40.00 Types: Cigarettes Quit date: 05/23/2012 Years since quittin.8 Smokeless tobacco: Never Vaping Use Vaping Use: Never used Substance Use Topics Alcohol use: Yes Comment: wine on occasion Drug use: Not Currently Review of Symptoms REVIEW OF SYSTEMS See hpi EXAM: BP 122/72 (BP Site: Right Arm, BP Position: Sitting, BP Cuff Size: Large Adult) Pulse 66 Temp 36.4 C (97.5 F) Resp 18 Wt 93.9 kg (207 lb) SpO2 92% BMI 32.42 kg/m General Appearance: Well appearing, alert, in no acute distress, well-hydrated, well nourished.. Nose/Sinuses: Nares normal, septum midline, mucosa normal, no drainage or sinus tenderness. Oropharynx: Lips, mucosa, and tongue normal, teeth and gums normal, oropharynx normal. Neck: Supple, no adenopathy; thyroid symmetric, normal size, no bruits. Lungs: Lungs clear to auscultation. No wheezing, rhonchi, rales.. Heart: RRR without murmur, gallop, or rubs. No ectopy. Health Maintenance List SHINGRIX VACCINE(1 of 2) Never done URINE ALBUMIN:CREATININE RATIO due on 02/24/2023 DILATED RETINAL EXAM due on 03/09/2023 INFLUENZA(1) due on 03/09/2023 HBA1C due on 03/30/2023 LDL CHOLESTEROL due on 09/28/2023 DIABETIC FOOT EXAM due on 09/28/2023 ANNUAL PCP TEAM CHRONIC DISEASE VISIT due on 03/19/2024 BP CONTROLLED (<130/80) due on 03/19/2024 DTAP,TDAP,TD(2 - Td or Tdap) due on 04/19/2027 ADVANCE DIRECTIVE DISCUSSION Completed DEPRESSION ASSESSMENT Completed PNEUMOCOCCAL: 65+ Completed HPV VACCINE Aged Out SPIROMETRY Discontinued COLORECTAL CANCER SCREENING Discontinued COVID-19 VACCINE Discontinued Data reviewed ASSESSMENT/PLAN: 1. Chronic cough - ICD9: 786.2, ICD10: R05.3 Unclear etiology. Start antihistamine and mucinex. Check CT - CT CHEST WO IVCON Maylin Pimentel PA-C documented in this encounter [facility] 03-16-2023 Note [facility] 03-16-2023 Note [facility] 03-16-2023 Note [facility] 03-16-2023 History of Present illness Narrative POPULATION HEALTH NAVIGATION OUTREACH Action/FYI March 16, 2023 Spoke with pt. Pt scheduled for appt with [facility] on 03/19/23. Pt keeping 03/30/23 appt with PCP until after appt on 03/19/23. CDM appt needed for: Patient states his follow up with Pulmonary is 04/03. Asked patient to contact Pulmonary office to determine if able to be seen earlier. If not, will schedule follow up with PCP office Patient Identified by Name and : YES, via phone Outreach Outcome/Action Spoke to patient / parent / legal guardian: Patient scheduled Did you use a PCP flex slot to schedule this appointment? No Reason for Outreach Community Monitoring [place] Payer: Payor: MEDICARE / Plan: MEDICARE A AND B / Product Type: Medicare / Care Gap Reviewed:: Follow-up appointment Reminder: Reminder note to check Health Maintenance for items below Health Maintenance items due: SHINGRIX VACCINE(1 of 2) Never done URINE ALBUMIN:CREATININE RATIO due on 02/24/2023 DILATED RETINAL EXAM due on 03/09/2023 INFLUENZA(1) due on 03/09/2023 Navigation Signature: Love Rosales MA March 16, 2023 1:10 PM [facility] Telephonic Outreach Provider Action/I Patient contacted pulmonary office. Staff are unable to move up follow up appointment- Staff stated no physicians in office for 10 days. Will forward to navigators to assist with scheduling patient for next week. Contacted for: Routine Telephonic Outreach Contact made with patient: Yes Patient identified by name and date of . Discussed care with patient Are you experiencing any new or worsening symptoms you need to talk about today? Yes Based on assessment rn, the following disposition is advised: No symptoms or symptoms present, not severe. Routed to: No Action Needed KEITH Education Provided this Outreach: Kasey Brown RN March 16, 2023 1:07 PM [facility] Telephonic Outreach Provider Abram/MINNIE Patient states his follow up with Pulmonary is 04/03. Asked patient to contact Pulmonary office to determine if able to be seen earlier. If not, will schedule follow up with PCP office Will contact patient later today to determine appointment status Contacted for: Routine Telephonic Outreach Contact made with patient: Yes Patient identified by name and date of . Discussed care with patient Are you experiencing any new or worsening symptoms you need to talk about today? Yes Based on assessment rn, the following disposition is advised: No symptoms or symptoms present, not severe. Routed to: No Action Needed KEITH Education Provided this Outreach: Kasey Brown RN March 16, 2023 11:24 AM [facility] Telephonic Outreach Provider Abram/MINNIE Patient states he completed the antibiotics and steroid. States CXR negative. Continues to have the cough Productive for cleat mucous. Using inhalers as prescribed. Shared that next steps were CT scan? Follow with pulmonary outside [facility] Has follow up with PCP 03/30. Please advise if any change to POC Contacted for: Routine Telephonic Outreach Contact made with patient: Yes Patient identified by name and date of . Discussed care with patient Are you experiencing any new or worsening symptoms you need to talk about today? Yes Based on assessment rn, the following disposition is advised: No symptoms or symptoms present, not severe. Routed to: No Action Needed KEITH Education Provided this Outreach: Kasey Brown RN March 15, 2023 3:58 PM documented in this encounter [facility] 03-14-2023 Note [facility] 03-06-2023 Note HNO ID: [id number] Author: Jamison Ruvalcaba PA-C Service: ? Author Type: Physician Sessions Clerk Type: Progress Notes Filed: 03/06/2023 9:27 AM Note Text: Medrol sent per patient request [facility] 03-06-2023 History of Present illness Narrative Medrol sent per patient request documented in this encounter [facility] 02-19-2023 Note HNO ID: [id number] Author: Jamison Ruvalcaba PA-C Service: ? Author Type: Physician Sessions Clerk Type: Progress Notes Filed: 02/19/2023 10:08 AM Note Text: CC: Pain in R thumb. HPI: Mr. Faith is a right hand dominant 77 year old male who presents with a chief complaint of pain in the base of right thumb. The patient reports having discomfort and pain with pinching maneuvers or picking up objects using the thumb and index finger. Axial loading of the thumb also causes discomfort/pain. The patient has tried carpometacarpal joint (CMCJ) bracing/splinting. The patient has not tried a cortisone injection. The patient has tried oral prednisone which has relieved his inflammatory pain, but the pain at the base of the thumb is still present. Here today for evaluation and treatment of his right wrist/thumb pain. 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 Barnett. COLD (chronic obstructive lung disease) (HCC) 02/01/2015 Moderate: Seeing Dr. Slaughter Controlled type 2 diabetes mellitus without complication, without long-term current use of insulin ([facility]) 06/20/2016 Coronary artery disease involving coronary bypass graft of ak chin heart without angina pectoris 02/01/[address] Garcia pacemaker/defib, 3 stents and 4 vessle CABG Current use of proton pump inhibitor 03/24/2017 DDD (degenerative disc disease), lumbar 06/13/2013 Diabetic eye exam ([facility]) 11/13/2016 Last done: 11/13/2016 Esophageal spasm 04/18/2017 Essential hypertension 10/02/2020 Essential hypertension with goal blood pressure less than 140/90 10/25/2015 Ex-smoker 12/10/2012 Family history of prostate cancer 12/10/2012 Gastroesophageal reflux disease without esophagitis 10/25/2015 Gynecomastia 01/22/2013 Lt side, Biopsy neg. History of cutaneous T-cell lymphoma History of CVA (cerebrovascular accident) 09/11/2013 In 2010. If tired left leg will drag slightly. ICD (implantable cardioverter-defibrillator), biventricular, in situ 09/26/2013 Lumbago 02/20/2013 Lumbar spondylosis 06/13/2013 Lung nodule < 6cm on CT 05/23/[address] chest 05/2018. Measuring up to 4mm. Repeat CT in 1 year. 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 Nocturia 12/10/2012 Obstructive sleep apnea syndrome 10/25/2015 CPAP 13 cm H2O On amiodarone therapy 01/04/2021 Per cardio< Dr. Garcia for paroxysmal A. Flutter, TV started 01/03/2021 Other malignant neoplasm of other specified sites of skin 11/02/2008 Pain in joint, shoulder region 09/22/2013 Peripheral T-cell lymphoma, pleomorphic small cell (HCC) Peripheral vascular disease, unspecified (HCC) PVD (peripheral vascular disease) ([facility]) 12/03/2012 3 stents to left leg S/P CABG x 3 09/26/2013 Seborrheic keratoses, inflamed 05/16/2017 left upper chest treated with cryo 05/16/2017 Spinal stenosis of lumbar region 02/20/2013 Stenosis of left carotid artery 04/04/2021 Type 2 diabetes mellitus with peripheral vascular disease (HCC) 12/03/2012 3 stents to left leg Urge incontinence 03/01/2016 Current Outpatient Medications Medication Sig Dispense Refill predniSONE (DELTASONE) 10 mg tablet Take 4 tabs daily for 3 days, then 2 tabs daily for 3 days, then 1 tab daily for 3 days with food. 21 tablet 0 amoxicillin-clavulanic acid (AUGMENTIN) 875-125 mg per tablet Take 1 tablet by mouth twice daily for 10 days. 20 tablet 0 Benzonatate 200 mg capsule Take 1 capsule by mouth three times daily as needed. 30 capsule 1 montelukast (SINGULAIR) 10 mg tablet Take 1 tablet by mouth daily at bedtime. 90 tablet 1 metFORMIN (GLUCOPHAGE) 500 mg tablet Take 1 tablet by mouth twice daily with meals. 180 tablet 1 amLODIPine (NORVASC) 10 mg tablet Take 1 tablet by mouth once daily. 90 tablet 1 fluticasone (FLONASE) 50 mcg/actuation nasal spray 1 spray each nostril 1-2 times a day 3 Each 3 ramipril (ALTACE) 10 mg capsule Take 1 capsule by mouth twice daily. 180 capsule 1 atorvastatin (LIPITOR) 80 mg tablet Take 1 tablet by mouth daily at bedtime. 90 tablet 1 nystatin (MYCOSTATIN) powder Apply 1 application to affected area four times daily. 60 g 1 isosorbide mononitrate ER (IMDUR) 30 mg 24 hr tablet Take 1 tablet by mouth twice daily. 180 tablet 3 c (more content not included)... [facility] 02-19-2023 Miscellaneous Notes Pt notified. Giselle Devlin Ma Left additional message for pt to contact office. Jameel Marquez LPN Left message for patient to contact office. Corin Cardenas MA Let patient know the x-ray today showed no fractures so a controled pain killer is not warranted. The prednisone he is to start can help this, however while on it he should not take any thing else for pain other then tylenol since meds like advil with prednisone can cause a stomach ulcer. Patient calling to request pain medication for right wrist pain. He was seen at today and had x rays done. He has an appointment with [facility] on 02/19. He has been taking Advil 200 mg two tablets every 4 hours without relief. He had one Percocet left from last winter which he took at 9 AM. He says it helped a little . He is to start a Prednisone taper for cough prescribed on 02/13. Nanda Castro RN documented in this encounter [facility] 02-19-2023 History of Present illness Narrative CC: Pain in R thumb. HPI: Mr. Faith is a right hand dominant 77 year old male who presents with a chief complaint of pain in the base of right thumb. The patient reports having discomfort and pain with pinching maneuvers or picking up objects using the thumb and index finger. Axial loading of the thumb also causes discomfort/pain. The patient has tried carpometacarpal joint (CMCJ) bracing/splinting. The patient has not tried a cortisone injection. The patient has tried oral prednisone which has relieved his inflammatory pain, but the pain at the base of the thumb is still present. Here today for evaluation and treatment of his right wrist/thumb pain. 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 Barnett. COLD (chronic obstructive lung disease) ([facility]) 02/01/2015 Moderate: Seeing Dr. Slaughter Controlled type 2 diabetes mellitus without complication, without long-term current use of insulin ([facility]) 06/20/2016 Coronary artery disease involving coronary bypass graft of ak chin heart without angina pectoris 02/01/[address] Garcia pacemaker/defib, 3 stents and 4 vessle CABG Current use of proton pump inhibitor 03/24/2017 DDD (degenerative disc disease), lumbar 06/13/2013 Diabetic eye exam ([facility]) 11/13/2016 Last done: 11/13/2016 Esophageal spasm 04/18/2017 Essential hypertension 10/02/2020 Essential hypertension with goal blood pressure less than 140/90 10/25/2015 Ex-smoker 12/10/2012 Family history of prostate cancer 12/10/2012 Gastroesophageal reflux disease without esophagitis 10/25/2015 Gynecomastia 01/22/2013 Lt side, Biopsy neg. History of cutaneous T-cell lymphoma History of CVA (cerebrovascular accident) 09/11/2013 In 2010. If tired left leg will drag slightly. ICD (implantable cardioverter-defibrillator), biventricular, in situ 09/26/2013 Lumbago 02/20/2013 Lumbar spondylosis 06/13/2013 Lung nodule < 6cm on CT 05/23/[address] chest 05/2018. Measuring up to 4mm. Repeat CT in 1 year. 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 Nocturia 12/10/2012 Obstructive sleep apnea syndrome 10/25/2015 CPAP 13 cm H2O On amiodarone therapy 01/04/2021 Per cardio< Dr. Garcia for paroxysmal A. Flutter, TV started 01/03/2021 Other malignant neoplasm of other specified sites of skin 11/02/2008 Pain in joint, shoulder region 09/22/2013 Peripheral T-cell lymphoma, pleomorphic small cell (HCC) Peripheral vascular disease, unspecified (HCC) PVD (peripheral vascular disease) ([facility]) 12/03/2012 3 stents to left leg S/P CABG x 3 09/26/2013 Seborrheic keratoses, inflamed 05/16/2017 left upper chest treated with cryo 05/16/2017 Spinal stenosis of lumbar region 02/20/2013 Stenosis of left carotid artery 04/04/2021 Type 2 diabetes mellitus with peripheral vascular disease ([facility]) 12/03/2012 3 stents to left leg Urge incontinence 03/01/2016 Current Outpatient Medications Medication Sig Dispense Refill predniSONE (DELTASONE) 10 mg tablet Take 4 tabs daily for 3 days, then 2 tabs daily for 3 days, then 1 tab daily for 3 days with food. 21 tablet 0 amoxicillin-clavulanic acid (AUGMENTIN) 875-125 mg per tablet Take 1 tablet by mouth twice daily for 10 days. 20 tablet 0 Benzonatate 200 mg capsule Take 1 capsule by mouth three times daily as needed. 30 capsule 1 montelukast (SINGULAIR) 10 mg tablet Take 1 tablet by mouth daily at bedtime. 90 tablet 1 metFORMIN (GLUCOPHAGE) 500 mg tablet Take 1 tablet by mouth twice daily with meals. 180 tablet 1 amLODIPine (NORVASC) 10 mg tablet Take 1 tablet by mouth once daily. 90 tablet 1 fluticasone (FLONASE) 50 mcg/actuation nasal spray 1 spray each nostril 1-2 times a day 3 Each 3 ramipril (ALTACE) 10 mg capsule Take 1 capsule by mouth twice daily. 180 capsule 1 atorvastatin (LIPITOR) 80 mg tablet Take 1 tablet by mouth daily at bedtime. 90 tablet 1 nystatin (MYCOSTATIN) powder Apply 1 application to affected area four times daily. 60 g 1 isosorbide mononitrate ER (IMDUR) 30 mg 24 hr tablet Take 1 tablet by mouth twice daily. 180 tablet 3 cholecalciferol, vitamin D3, (VITAMIN D3 ORAL) Take by mouth. albuterol HFA (PROAIR HFA) 90 mcg/actuation inhaler Inhale 2 Puffs as instructed every 4 hours as needed for wheezing/shortness of breath. 8 g 0 acetaminophen (TYLENOL ARTHRITIS PAIN) 650 mg CR tablet Take 2 tablets by mouth every 8 hours as needed. amiodarone (PACERONE) 200 mg tablet Take 1 tablet by mouth once daily. Per Cardio, Dr. Garcia carvedilol (COREG) 6.25 mg tablet Take 1 tablet by mouth twice daily with meals. 180 tablet 1 apixaban (ELIQUIS) 5 mg tab(s) Take 1 tablet by mouth twice daily. Per Dr. Garcia nitroglycerin sublingual (NITROQUICK) 0.4 mg SL tablet Dissolve 1 tablet under the tongue every 5 minutes as needed for Chest Pain. 1 Bottle of 25 0 albuterol (PROVENTIL) 2.5 mg /3 mL (0.083 %) nebulizer solution Inhale 1 vial (3 ml) via nebulizer every 4 hours as needed for wheezing/shortness of breath. Use over 5-15 minutes 270 mL 1 SYMBICORT 160-4.5 mcg/actuation inhaler Inhale 2 Puffs as instructed twice daily. COMPOUNDED PRESCRIPTION CPAP at 13 crainal nerves H2O with humidification, medium [employer] Simplus full face mask without chin strap and appropriate supplies. # one device Dx: G47.33 1 Device 0 COMPOUNDED PRESCRIPTION CPAP 13 cmH2O with humidification. A [employer] Simplus full face mask without chin strap. Dx: G47.33 1 Device 0 No current facility-administered medications for this visit. ALLERGIES Allergen Reactions Sulfa (Sulfonamide * Unknown unknown, as a child Cipro [Ciprofloxaci* Swelling PE: Exam of the right upper limb revealed: (+) Grind test. (+) Pain with CMCJ reduction test. (-) Madhuri test. (+) Hyperextension deformity of MCPJ of the thumb. RADIOLOGY: DATE OF EXAM: Feb 14 2023 3:29PM WOX [id number] - XR WRIST 4V PA/LAT/OBL/SCAPH RT / PROCEDURE REASON: Right wrist pain * * * * Physician Interpretation * * * * History: Pain FINDINGS: AP, lateral, and oblique views of the right wrist and hand have been obtained. There are advanced degenerative changes of the first CMC joint with marked narrowing, subchondral sclerosis, and heterotopic bone formation. To lesser degree there is triscaphe the joint space narrowing with sclerosis and mild spurring. There is lateral/proximal subluxation of the first metacarpal relative to the trapezium. Subchondral cysts of multiple carpal bones. There is scattered interphalangeal joint space narrowing with marginal spurring with no distraction seen. There is MCP joint space narrowing of the second and third digits predominantly. 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 Faith the diagnosis and proposed treatment options. Treatment options for thumb CMCJ arthritis discussed. Non-surgical treatment options include splinting (Push MetaGrip CMC brace), topical vs oral NSAIDs, and cortisone injection. When these options fail to improve symptoms, surgery would be recommended. Surgery involves excision of the trapezium bone, followed by stabilization of the thumb metacarpal base with tendons. After surgery, the thumb will need to be immobilized for 6 weeks, followed by 6-9 months of therapy for range of motion exercises and strengthening. After surgery, the thumb will only achieve up to 80-90% of its original pinch strength. Therefore, the surgery would reduce the thumb joint pain, but will ultimately make the thumb weaker. Given the severity of his degenerative changes and lack of improvement with immobilization, the patient elects to proceed with surgical intervention. Patient understands the risks and the recovery duration. Consent will be signed the day of surgery and a case request has been submitted. 30 Minutes total visit spent face to face with patient. Greater than 50% of the time was spent for counseling and coordination of care, discussing treatment options and recommendations. Jamison Ruvalcaba PA-C February 19, 2023 9:05 AM This note was generated with voice recognition software and may contain errors, including spelling, grammar, syntax and misrecognition of what was dictated, that are not fully corrected. documented in this encounter [facility] 02-14-2023 Note [facility] 02-14-2023 Note [facility] 02-14-2023 History of Present illness Narrative Images from the original note were not included. Subjective Patient came in with complaints of right wrist and hand pain. Patient says he hurt it about 3 weeks ago and had an x-ray nothing was broke. Patient does have a brace on. Patient has an appointment on the with Ortho. Patient says he woke up today and it was significantly worse pain hutton. Patient cannot move his thumb with range of motion. Patient would like repeat x-rays. The history is provided by the patient. No sign language teacher was used. Review of Systems Constitutional: Negative. Skin: Negative. Objective Physical Exam Constitutional: Appearance: Normal appearance. Pulmonary: Effort: Pulmonary effort is normal. Musculoskeletal: Arms: Comments: Patient has moderate swelling in the area marked green above as well as tenderness when palpated. Hard to tell if it is red or not patient had tight brace over area so appears to be irritated due to brace as well. Range of Motion in the thumb is significantly limited. Neurological: Mental Status: He is alert. PAST MEDICAL HISTORY Diagnosis Date AK (actinic keratosis) 05/16/2017 right scalp treated 05/16/2017 cryo Left forehead and 4 lesion on crown of head treated 05/21/18 cryo Allergic rhinitis 05/19/2014 Anxiety 12/03/2012 Arthritis of lumbar spine 10/24/2016 Atherosclerosis of autologous vein bypass graft of right lower extremity with intermittent claudication ([facility]) 04/04/2021 Benign non-nodular prostatic hyperplasia with lower urinary tract symptoms 03/01/2016 Bilateral carotid artery disease ([facility]) 10/25/2015 US 11/2016: 20-40% on right 60-80% on left US 11/2017: stable with 20-40% on right and 60-80% on left Blood type O+ 03/29/2020 Cardiomyopathy, ischemic 09/26/2013 Chronic pain 09/11/[address] Barnett. COLD (chronic obstructive lung disease) ([facility]) 02/01/2015 Moderate: Seeing Dr. Slaughter Controlled type 2 diabetes mellitus without complication, without long-term current use of insulin ([facility]) 06/20/2016 Coronary artery disease involving coronary bypass graft of ak chin heart without angina pectoris 02/01/[address] Garcia pacemaker/defib, 3 stents and 4 vessle CABG Current use of proton pump inhibitor 03/24/2017 DDD (degenerative disc disease), lumbar 06/13/2013 Diabetic eye exam ([facility]) 11/13/2016 Last done: 11/13/2016 Esophageal spasm 04/18/2017 Essential hypertension 10/02/2020 Essential hypertension with goal blood pressure less than 140/90 10/25/2015 Ex-smoker 12/10/2012 Family history of prostate cancer 12/10/2012 Gastroesophageal reflux disease without esophagitis 10/25/2015 Gynecomastia 01/22/2013 Lt side, Biopsy neg. History of cutaneous T-cell lymphoma History of CVA (cerebrovascular accident) 09/11/2013 In 2010. If tired left leg will drag slightly. ICD (implantable cardioverter-defibrillator), biventricular, in situ 09/26/2013 Lumbago 02/20/2013 Lumbar spondylosis 06/13/2013 Lung nodule < 6cm on CT 05/23/[address] chest 05/2018. Measuring up to 4mm. Repeat CT in 1 year. 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 Nocturia 12/10/2012 Obstructive sleep apnea syndrome 10/25/2015 CPAP 13 cm H2O On amiodarone therapy 01/04/2021 Per cardio< Dr. Garcia for paroxysmal A. Flutter, TV started 01/03/2021 Other malignant neoplasm of other specified sites of skin 11/02/2008 Pain in joint, shoulder region 09/22/2013 Peripheral T-cell lymphoma, pleomorphic small cell (HCC) Peripheral vascular disease, unspecified (HCC) PVD (peripheral vascular disease) (HCC) 12/03/2012 3 stents to left leg S/P CABG x 3 09/26/2013 Seborrheic keratoses, inflamed 05/16/2017 left upper chest treated with cryo 05/16/2017 Spinal stenosis of lumbar region 02/20/2013 Stenosis of left carotid artery 04/04/2021 Type 2 diabetes mellitus with peripheral vascular disease (HCC) 12/03/2012 3 stents to left leg Urge incontinence 03/01/2016 PAST SURGICAL HISTORY Procedure Laterality Date *STRESS TEST PC 11/14/2016 Negative 2D ECHO (EXEP) 01/19/2021 EF=55%, LA mildly enlarged, 1-2+ TI, 2D ECHO COMPLETE INP 08/27/2012 EF=50%, trace MR andTR ANES PERMANENT TRANSVENOUS PACEMAKER INSERTION 03/2012 Permanent Pacemaker (revision) ARTHRP KNE CONDYLE&PLATU MEDIAL&LAT COMPARTMENTS 03/30/2020 BYP OTH/THN VEIN FEMORAL-POPLITEAL right leg 11/2012 Bypass graft fem-pop BYPASS COMPOSITE GRAFT PROSTHETIC & VEIN left leg 03/2012 Bypass graft other, composite COLONOSCOPY FLX DX W/COLLJ SPEC WHEN PFRMD 03/08/2006 Colonoscopy [facility] - no polyps COLONOSCOPY FLX DX W/COLLJ SPEC WHEN PFRMD 08/14/2000 Colonoscopy [facility]- no polyps COLONOSCOPY FLX DX W/COLLJ SPEC WHEN PFRMD 02/26/2013 Colonoscopy, no polyps, recheck 10 yrs CORONARY ARTERY BYP W/VEIN & ARTERY GRAFT 3 VEIN 05/2012 CABG, three grafts CORONARY STENT EA VESSEL 2004 Drug eluting ESOPHAGOGASTRODUODENOSCOPY TRANSORAL DIAGNOSTIC 03/08/2006 EGD [facility] PAST SURGICAL HISTORY OF Left 01/01/2020 left knee arthroscopic chondroplasty medial and patello PERMANENT PACEMAKER 2005 STRESS TEST 10/30/2017 normal stress with EF=64% ALLERGIES Sulfa (Sulfonamide Antibiotics) and Cipro [Ciprofloxacin] MEDICATIONS predniSONE (DELTASONE) 10 mg tablet Take 4 tabs daily for 3 days, then 2 tabs daily for 3 days, then 1 tab daily for 3 days with food. amoxicillin-clavulanic acid (AUGMENTIN) 875-125 mg per tablet Take 1 tablet by mouth twice daily for 10 days. Benzonatate 200 mg capsule Take 1 capsule by mouth three times daily as needed. montelukast (SINGULAIR) 10 mg tablet Take 1 tablet by mouth daily at bedtime. metFORMIN (GLUCOPHAGE) 500 mg tablet Take 1 tablet by mouth twice daily with meals. amLODIPine (NORVASC) 10 mg tablet Take 1 tablet by mouth once daily. fluticasone (FLONASE) 50 mcg/actuation nasal spray 1 spray each nostril 1-2 times a day ramipril (ALTACE) 10 mg capsule Take 1 capsule by mouth twice daily. atorvastatin (LIPITOR) 80 mg tablet Take 1 tablet by mouth daily at bedtime. nystatin (MYCOSTATIN) powder Apply 1 application to affected area four times daily. isosorbide mononitrate ER (IMDUR) 30 mg 24 hr tablet Take 1 tablet by mouth twice daily. cholecalciferol, vitamin D3, (VITAMIN D3 ORAL) Take by mouth. albuterol HFA (PROAIR HFA) 90 mcg/actuation inhaler Inhale 2 Puffs as instructed every 4 hours as needed for wheezing/shortness of breath. acetaminophen (TYLENOL ARTHRITIS PAIN) 650 mg CR tablet Take 2 tablets by mouth every 8 hours as needed. amiodarone (PACERONE) 200 mg tablet Take 1 tablet by mouth once daily. Per Cardio, Dr. Garcia carvedilol (COREG) 6.25 mg tablet Take 1 tablet by mouth twice daily with meals. apixaban (ELIQUIS) 5 mg tab(s) Take 1 tablet by mouth twice daily. Per Dr. Garcia nitroglycerin sublingual (NITROQUICK) 0.4 mg SL tablet Dissolve 1 tablet under the tongue every 5 minutes as needed for Chest Pain. albuterol (PROVENTIL) 2.5 mg /3 mL (0.083 %) nebulizer solution Inhale 1 vial (3 ml) via nebulizer every 4 hours as needed for wheezing/shortness of breath. Use over 5-15 minutes SYMBICORT 160-4.5 mcg/actuation inhaler Inhale 2 Puffs as instructed twice daily. COMPOUNDED PRESCRIPTION CPAP at 13 crainal nerves H2O with humidification, medium [employer] Simplus full face mask without chin strap and appropriate supplies. # one device Dx: G47.33 COMPOUNDED PRESCRIPTION CPAP 13 cmH2O with humidification. A [employer] Simplus full face mask without chin strap. Dx: G47.33 FAMILY HISTORY Problem Relation Age of Onset Stroke Mother 89 Heart Father 76 Prostate Cancer Father Prostate Cancer Brother Cancer Maternal Grandfather lung Social History Tobacco Use Smoking status: Former Packs/day: 1.00 Years: 40.00 Total pack years: 40.00 Types: Cigarettes Quit date: 05/23/2012 Years since quittin.7 Smokeless tobacco: Never Vaping Use Vaping Use: Never used Substance Use Topics Alcohol use: Yes Comment: wine on occasion Drug use: Not Currently ASSESSMENT/PLAN: 1. Right wrist pain - ICD9: 719.43, ICD10: M25.531 (primary diagnosis) - XR WRIST INJURY 4V PA/LAT/OBL/SCAPH RIGHT 2. Pain of right hand - ICD9: 729.5, ICD10: M79.641 - XR HAND GENERAL 3V PA/LAT/OBL RIGHT * * * * Physician Interpretation * * * * History: Pain FINDINGS: AP, lateral, and oblique views of the right wrist and hand have been obtained. There are advanced degenerative changes of the first CMC joint with marked narrowing, subchondral sclerosis, and heterotopic bone formation. To lesser degree there is triscaphe the joint space narrowing with sclerosis and mild spurring. There is lateral/proximal subluxation of the first metacarpal relative to the trapezium. Subchondral cysts of multiple carpal bones. There is scattered interphalangeal joint space narrowing with marginal spurring with no distraction seen. There is MCP joint space narrowing of the second and third digits predominantly. IMPRESSION IMPRESSION: Degenerative changes, as described, with no acute process seen. Glaze Supervisor: JESUS Transcribe Date/Time: Feb 14 2023 3:38P Dictated by : BRENNA WILLS MD This examination was interpreted and the report reviewed and electronically signed by: BRENNA WILLS MD on Feb 14 2023 3:40PM EST Was able to obtain an orthopedic appointment for Sunday. Patient was instructed to ice elevate and take it easy with the hand until he follows up with orthopedics. Patient was okay with this care plan. Everett Cardenas APRN.PLANT PATHOLOGIST documented in this encounter [facility] 02-14-2023 Miscellaneous Notes Pt was notified of results & pt voiced understanding. Angelika Schwab LPN Let patient know that his CXR was normal. Continue as we discussed documented in this encounter [facility] 02-13-2023 Note [facility] 02-13-2023 Note [facility] 02-08-2023 Note [facility] 01-29-2023 Note HNO ID: [id number] Author: Jameel Marquez LPN Service: ? Author Type: ? Type: Progress Notes Filed: 01/31/2023 1:05 PM Note Text: Scan on 01/29/2023 2:26 PM by Provider, RITA Han: Consultation - Cardiology [facility] 01-18-2023 Miscellaneous Notes Simin Carlisle's message and instructions with pt. Pt verbalizes understanding. Pt is just wanting to keep his ortho appointment as scheduled. He will contact office if he changes his mind regarding sooner appointment in ortho. Jameel Marquez LPN I will send in prednisone taper but he will need to watch his blood sugars. Contact us if over 300. this May help with some of the inflammation. If he wants to see ortho sooner, can see if we can get him seen by [facility] or see if he is willing to travel. Maylin Pimentel PA-C Spoke with patient and he indicated that he is not seeing any improvement. Wearing the brace but gets in the way of him doing things. Corin Cardenas MA Left message for pt to contact office. Jameel Marquez LPN Please see how patient's wrist is feeling compared to last week? Maylin Pimentel PA-C documented in this encounter [facility] 01-17-2023 Miscellaneous Notes The following approved medication requests have been transmitted electronically. Requested Prescriptions Signed Prescriptions Disp Refills montelukast (SINGULAIR) 10 mg tablet 90 tablet 1 Sig: Take 1 tablet by mouth daily at bedtime. Authorizing Provider: FITO CHAVEZ metFORMIN (GLUCOPHAGE) 500 mg tablet 180 tablet 1 Sig: Take 1 tablet by mouth twice daily with meals. Authorizing Provider: FITO CHAVEZ MD Patient has been identified by name and date of : Yes Requested Prescriptions Pending Prescriptions Disp Refills montelukast (SINGULAIR) 10 mg tablet 90 tablet 3 Sig: Take 1 tablet by mouth daily at bedtime. metFORMIN (GLUCOPHAGE) 500 mg tablet 180 tablet 3 Sig: Take 1 tablet by mouth twice daily with meals. RX INSTRUCTIONS: Patient aware RX will be sent to pharmacy. No need to notify patient. Corin Cardenas MA [facility] 01/2023 Nov 03/2023 Last refill: 07/2022 Patient has been identified by name and date of : Yes Requested Prescriptions Pending Prescriptions Disp Refills montelukast (SINGULAIR) 10 mg tablet 90 tablet 3 Sig: Take 1 tablet by mouth daily at bedtime. metFORMIN (GLUCOPHAGE) 500 mg tablet 180 tablet 3 Sig: Take 1 tablet by mouth twice daily with meals. RX INSTRUCTIONS: Patient aware RX will be sent to pharmacy. No need to notify patient. Abena Hillman documented in this encounter [facility] 01-11-2023 Note [facility] 01-11-2023 Note [facility] 01-11-2023 History of Present illness Narrative Chief Complaint Patient presents with: Pain right wrist HPI Francisco Faith is a 77 year old male who presents here today for Above Complaints.. Patient reports right wrist and thumb pain and swelling for past month. May have been longer but worsening over past month No injury that he can recall No n/t Pain is on dorsal side. Pain worsens if he puts his hand flat/palm down. Unable to move thumb. Past medical history, appointments, medications, allergies reviewed. 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) 04/04/2021 Benign non-nodular prostatic hyperplasia with lower urinary tract symptoms 03/01/2016 Bilateral carotid artery disease (HCC) 10/25/2015 US 11/2016: 20-40% on right 60-80% on left US 11/2017: stable with 20-40% on right and 60-80% on left Blood type O+ 03/29/2020 Cardiomyopathy, ischemic 09/26/2013 Chronic pain 09/11/[address] Barnett. COLD (chronic obstructive lung disease) ([facility]) 02/01/2015 Moderate: Seeing Dr. Slaughter Controlled type 2 diabetes mellitus without complication, without long-term current use of insulin ([facility]) 06/20/2016 Coronary artery disease involving coronary bypass graft of ak chin heart without angina pectoris 02/01/[address] Garcia pacemaker/defib, 3 stents and 4 vessle CABG Current use of proton pump inhibitor 03/24/2017 DDD (degenerative disc disease), lumbar 06/13/2013 Diabetic eye exam ([facility]) 11/13/2016 Last done: 11/13/2016 Esophageal spasm 04/18/2017 Essential hypertension 10/02/2020 Essential hypertension with goal blood pressure less than 140/90 10/25/2015 Ex-smoker 12/10/2012 Family history of prostate cancer 12/10/2012 Gastroesophageal reflux disease without esophagitis 10/25/2015 Gynecomastia 01/22/2013 Lt side, Biopsy neg. History of cutaneous T-cell lymphoma History of CVA (cerebrovascular accident) 09/11/2013 In 2010. If tired left leg will drag slightly. ICD (implantable cardioverter-defibrillator), biventricular, in situ 09/26/2013 Lumbago 02/20/2013 Lumbar spondylosis 06/13/2013 Lung nodule < 6cm on CT 05/23/[address] chest 05/2018. Measuring up to 4mm. Repeat CT in 1 year. 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 Nocturia 12/10/2012 Obstructive sleep apnea syndrome 10/25/2015 CPAP 13 cm H2O On amiodarone therapy 01/04/2021 Per cardio< Dr. Garcia for paroxysmal A. Flutter, TV started 01/03/2021 Other malignant neoplasm of other specified sites of skin 11/02/2008 Pain in joint, shoulder region 09/22/2013 Peripheral T-cell lymphoma, pleomorphic small cell (HCC) Peripheral vascular disease, unspecified (HCC) PVD (peripheral vascular disease) (HCC) 12/03/2012 3 stents to left leg S/P CABG x 3 09/26/2013 Seborrheic keratoses, inflamed 05/16/2017 left upper chest treated with cryo 05/16/2017 Spinal stenosis of lumbar region 02/20/2013 Stenosis of left carotid artery 04/04/2021 Type 2 diabetes mellitus with peripheral vascular disease (HCC) 12/03/2012 3 stents to left leg Urge incontinence 03/01/2016 Previous Surgical History PAST SURGICAL HISTORY Procedure Laterality Date *STRESS TEST PC 11/14/2016 Negative 2D ECHO (EXEP) 01/19/2021 EF=55%, LA mildly enlarged, 1-2+ TI, 2D ECHO COMPLETE INP 08/27/2012 EF=50%, trace MR andTR ANES PERMANENT TRANSVENOUS PACEMAKER INSERTION 03/2012 Permanent Pacemaker (revision) ARTHRP KNE CONDYLE&PLATU MEDIAL&LAT COMPARTMENTS 03/30/2020 BYP OTH/THN VEIN FEMORAL-POPLITEAL right leg 11/2012 Bypass graft fem-pop BYPASS COMPOSITE GRAFT PROSTHETIC & VEIN left leg 03/2012 Bypass graft other, composite COLONOSCOPY FLX DX W/COLLJ SPEC WHEN PFRMD 03/08/2006 Colonoscopy [facility] - no polyps COLONOSCOPY FLX DX W/COLLJ SPEC WHEN PFRMD 08/14/2000 Colonoscopy [facility]- no polyps COLONOSCOPY FLX DX W/COLLJ SPEC WHEN PFRMD 02/26/2013 Colonoscopy, no polyps, recheck 10 yrs CORONARY ARTERY BYP W/VEIN & ARTERY GRAFT 3 VEIN 05/2012 CABG, three grafts CORONARY STENT EA VESSEL 2004 Drug eluting ESOPHAGOGASTRODUODENOSCOPY TRANSORAL DIAGNOSTIC 03/08/2006 EGD [facility] PAST SURGICAL HISTORY OF Left 01/01/2020 left knee arthroscopic chondroplasty medial and patello PERMANENT PACEMAKER 2006 STRESS TEST 10/30/2017 normal stress with EF=64% Family History FAMILY HISTORY Problem Relation Age of Onset Stroke Mother 89 Heart Father 76 Prostate Cancer Father Prostate Cancer Brother Cancer Maternal Grandfather lung Patient Allergies ALLERGIES Allergen Reactions Sulfa (Sulfonamide * Unknown unknown, as a child Cipro [Ciprofloxaci* Swelling Current Medications Current Outpatient Medications on File Prior to Visit Medication Sig amLODIPine (NORVASC) 10 mg tablet Take 1 tablet by mouth once daily. fluticasone (FLONASE) 50 mcg/actuation nasal spray 1 spray each nostril 1-2 times a day ramipril (ALTACE) 10 mg capsule Take 1 capsule by mouth twice daily. atorvastatin (LIPITOR) 80 mg tablet Take 1 tablet by mouth daily at bedtime. montelukast (SINGULAIR) 10 mg tablet Take 1 tablet by mouth daily at bedtime. metFORMIN (GLUCOPHAGE) 500 mg tablet Take 1 tablet by mouth twice daily with meals. isosorbide mononitrate ER (IMDUR) 30 mg 24 hr tablet Take 1 tablet by mouth twice daily. cholecalciferol, vitamin D3, (VITAMIN D3 ORAL) Take by mouth. albuterol HFA (PROAIR HFA) 90 mcg/actuation inhaler Inhale 2 Puffs as instructed every 4 hours as needed for wheezing/shortness of breath. acetaminophen (TYLENOL ARTHRITIS PAIN) 650 mg CR tablet Take 2 tablets by mouth every 8 hours as needed. amiodarone (PACERONE) 200 mg tablet Take 1 tablet by mouth once daily. Per Cardio, Dr. Garcia apixaban (ELIQUIS) 5 mg tab(s) Take 1 tablet by mouth twice daily. Per Dr. Garcia nitroglycerin sublingual (NITROQUICK) 0.4 mg SL tablet Dissolve 1 tablet under the tongue every 5 minutes as needed for Chest Pain. albuterol (PROVENTIL) 2.5 mg /3 mL (0.083 %) nebulizer solution Inhale 1 vial (3 ml) via nebulizer every 4 hours as needed for wheezing/shortness of breath. Use over 5-15 minutes SYMBICORT 160-4.5 mcg/actuation inhaler Inhale 2 Puffs as instructed twice daily. nystatin (MYCOSTATIN) powder Apply 1 application to affected area four times daily. (Patient not taking: Reported on 12/26/2022) Benzonatate 200 mg capsule Take 1 capsule by mouth three times daily as needed. (Patient not taking: No sig reported) carvedilol (COREG) 6.25 mg tablet Take 1 tablet by mouth twice daily with meals. COMPOUNDED PRESCRIPTION CPAP at 13 crainal nerves H2O with humidification, medium [employer] Simplus full face mask without chin strap and appropriate supplies. # one device Dx: G47.33 COMPOUNDED PRESCRIPTION CPAP 13 cmH2O with humidification. A [employer] Simplus full face mask without chin strap. Dx: G47.33 No current facility-administered medications on file prior to visit. Social History Social History Tobacco Use Smoking status: Former Packs/day: 1.00 Years: 40.00 Pack years: 40.00 Types: Cigarettes Quit date: 05/23/2012 Years since quittin.6 Smokeless tobacco: Never Vaping Use Vaping Use: Never used Substance Use Topics Alcohol use: Yes Comment: wine on occasion Drug use: Not Currently Review of Symptoms REVIEW OF SYSTEMS See hpi EXAM: BP 96/56 (BP Site: Left Arm, BP Position: Sitting, BP Cuff Size: Large Adult) Pulse 70 Temp 36.3 C (97.3 F) Resp 18 Wt 95.7 kg (211 lb) BMI 33.05 kg/m General Appearance: Well appearing, alert, in no acute distress, well-hydrated, well nourished.. Musculoskeletal: R Wrist: swelling noted on dorsal wrist with tenderness. Patient unable to extend or flex thumb. Tender at base of thumb. Some redness noted. Pain at anatomical snuff box. Health Maintenance List SHINGRIX VACCINE(1 of 2) Never done URINE ALBUMIN:CREATININE RATIO due on 02/24/2023 DILATED RETINAL EXAM due on 03/09/2023 INFLUENZA(1) due on 03/09/2023 HBA1C due on 03/30/2023 LDL CHOLESTEROL due on 09/28/2023 DIABETIC FOOT EXAM due on 09/28/2023 ANNUAL PCP TEAM CHRONIC DISEASE VISIT due on 11/04/2023 BP CONTROLLED (<130/80) due on 12/27/2023 DTAP,TDAP,TD(2 - Td or Tdap) due on 04/19/2027 ADVANCE DIRECTIVE DISCUSSION Completed DEPRESSION ASSESSMENT Completed PNEUMOCOCCAL: 65+ Completed SPIROMETRY Discontinued COVID-19 VACCINE Discontinued Data reviewed ASSESSMENT/PLAN: 1. Right wrist pain - ICD9: 719.43, ICD10: M25.531 Wrist brace placed on patient. Xray today. Set up with ortho. Concerned for undiagnosed wrist fracture. - XR WRIST GENERAL 3V PA/LAT/OBL RIGHT - CONSULT TO ORTHOPAEDICS Maylin Pimentel PA-C documented in this encounter [facility] 01-10-2023 Note [facility] 01-08-2023 Note [facility] 12-26-2022 Note [facility] 12-26-2022 History of Present illness Narrative NAME: FRANCISCO [facility] NO: [id number] DATE OF SERVICE: 12/26/2022 DATE OF : 1945 Subjective: Francisco is here to follow up after CT scan. He denies any new focal neurologic deficit. Overall, he is doing well and at baseline. Reviewed his CT of his neck, and his left ICA is about 65% stenosed. Assessment/Plan: Asymptomatic carotid artery disease. Reviewed the findings with Francisco. Recommend a repeat duplex in six months, or sooner with any concerns. Continue antiplatelet therapy and blood pressure control. He is agreeable to this plan. Radha Marina D.O. [id number] Audio #: [id number] Date Dictated: 12/26/2022 09:27:07 Date Typed: 12/27/2022 07:25:52 Date Revised: documented in this encounter [facility] 12-06-2022 Note [facility] 12-06-2022 History of Present illness Narrative [facility] Telephonic Outreach Provider Action/FYI Patient had been treated for suspected cellulitis. Symptoms did not improve. Referred to surgery- evaluated on 11/13 - skin infection/cellulitis/abscess. Advised excision and drainage for probable infected sebaceous cyst. He declined procedure. Lump still present.- He plans to contact PCP for second opinion/surgery referral. Encouraged to move forward with next steps alexa to avoid potential further infection septicemia. Contacted for: Routine Telephonic Outreach Contact made with patient: Yes Patient identified by name and date of . Discussed care with patient Are you experiencing any new or worsening symptoms you need to talk about today? Yes Based on assessment rn, the following disposition is advised: No symptoms or symptoms present, not severe. Routed to: No Action Needed KEITH Education Provided this Outreach: No Lopez Brown RN December 06, 2022 2:06 PM documented in this encounter [facility] 11-13-2022 Note [facility] 11-13-2022 History of Present illness Narrative Francisco Faith 1945 REFERRING PHYSICIAN: Maylin Pimentel PA-C CHIEF COMPLAINT: Consult (Soft tissue mass calf of right leg) HPI: The patient is a 76 year old male with episode of abscess/cellulitis of mid calf of RLE. He has been on two rounds (Keflex and doxycycline) of antibiotics. Patient states that the area was much more tender and red prior to antibiotics and he thus notes improvement. He denies trauma to the area. He denies previous infections in the area PAST MEDICAL HISTORY Diagnosis Date AK (actinic keratosis) 05/16/2017 right scalp treated 05/16/2017 cryo Left forehead and 4 lesion on crown of head treated 05/21/18 cryo Allergic rhinitis 05/19/2014 Anxiety 12/03/2012 Arthritis of lumbar spine 10/24/2016 Atherosclerosis of autologous vein bypass graft of right lower extremity with intermittent claudication ([facility]) 04/04/2021 Benign non-nodular prostatic hyperplasia with lower urinary tract symptoms 03/01/2016 Bilateral carotid artery disease (HCC) 10/25/2015 US 11/2016: 20-40% on right 60-80% on left US 11/2017: stable with 20-40% on right and 60-80% on left Blood type O+ 03/29/2020 Cardiomyopathy, ischemic 09/26/2013 Chronic pain 09/11/[address] Barnett. COLD (chronic obstructive lung disease) ([facility]) 02/01/2015 Moderate: Seeing Dr. Slaughter Controlled type 2 diabetes mellitus without complication, without long-term current use of insulin ([facility]) 06/20/2016 Coronary artery disease involving coronary bypass graft of ak chin heart without angina pectoris 02/01/[address] Garcia pacemaker/defib, 3 stents and 4 vessle CABG Current use of proton pump inhibitor 03/24/2017 DDD (degenerative disc disease), lumbar 06/13/2013 Diabetic eye exam (HCC) 11/13/2016 Last done: 11/13/2016 Esophageal spasm 04/18/2017 Essential hypertension 10/02/2020 Essential hypertension with goal blood pressure less than 140/90 10/25/2015 Ex-smoker 12/10/2012 Family history of prostate cancer 12/10/2012 Gastroesophageal reflux disease without esophagitis 10/25/2015 Gynecomastia 01/22/2013 Lt side, Biopsy neg. History of cutaneous T-cell lymphoma History of CVA (cerebrovascular accident) 09/11/2013 In 2010. If tired left leg will drag slightly. ICD (implantable cardioverter-defibrillator), biventricular, in situ 09/26/2013 Lumbago 02/20/2013 Lumbar spondylosis 06/13/2013 Lung nodule < 6cm on CT 05/23/[address] chest 05/2018. Measuring up to 4mm. Repeat CT in 1 year. 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 Nocturia 12/10/2012 Obstructive sleep apnea syndrome 10/25/2015 CPAP 13 cm H2O On amiodarone therapy 01/04/2021 Per cardio< Dr. Garcia for paroxysmal A. Flutter, TV started 01/03/2021 Other malignant neoplasm of other specified sites of skin 11/02/2008 Pain in joint, shoulder region 09/22/2013 Peripheral T-cell lymphoma, pleomorphic small cell (HCC) Peripheral vascular disease, unspecified (HCC) PVD (peripheral vascular disease) ([facility]) 12/03/2012 3 stents to left leg S/P CABG x 3 09/26/2013 Seborrheic keratoses, inflamed 05/16/2017 left upper chest treated with cryo 05/16/2017 Spinal stenosis of lumbar region 02/20/2013 Stenosis of left carotid artery 04/04/2021 Type 2 diabetes mellitus with peripheral vascular disease (HCC) 12/03/2012 3 stents to left leg Urge incontinence 03/01/2016 PAST SURGICAL HISTORY Procedure Laterality Date *STRESS TEST PC 11/14/2016 Negative 2D ECHO (EXEP) 01/19/2021 EF=55%, LA mildly enlarged, 1-2+ TI, 2D ECHO COMPLETE INP 08/27/2012 EF=50%, trace MR andTR ANES PERMANENT TRANSVENOUS PACEMAKER INSERTION 03/2012 Permanent Pacemaker (revision) ARTHRP KNE CONDYLE&PLATU MEDIAL&LAT COMPARTMENTS 03/30/2020 BYP OTH/THN VEIN FEMORAL-POPLITEAL right leg 11/2012 Bypass graft fem-pop BYPASS COMPOSITE GRAFT PROSTHETIC & VEIN left leg 03/2012 Bypass graft other, composite COLONOSCOPY FLX DX W/COLLJ SPEC WHEN PFRMD 03/08/2006 Colonoscopy [facility] - no polyps COLONOSCOPY FLX DX W/COLLJ SPEC WHEN PFRMD 08/14/2000 Colonoscopy [facility]- no polyps COLONOSCOPY FLX DX W/COLLJ SPEC WHEN PFRMD 02/26/2013 Colonoscopy, no polyps, recheck 10 yrs CORONARY ARTERY BYP W/VEIN & ARTERY GRAFT 3 VEIN 05/2012 CABG, three grafts CORONARY STENT EA VESSEL 2004 Drug eluting ESOPHAGOGASTRODUODENOSCOPY TRANSORAL DIAGNOSTIC 03/08/2006 EGD [facility] PAST SURGICAL HISTORY OF Left 01/01/2020 left knee arthroscopic chondroplasty medial and patello PERMANENT PACEMAKER 2005 STRESS TEST 10/30/2017 normal stress with EF=64% Current Outpatient Medications Medication Sig amLODIPine (NORVASC) 10 mg tablet Take 1 tablet by mouth once daily. fluticasone (FLONASE) 50 mcg/actuation nasal spray 1 spray each nostril 1-2 times a day ramipril (ALTACE) 10 mg capsule Take 1 capsule by mouth twice daily. atorvastatin (LIPITOR) 80 mg tablet Take 1 tablet by mouth daily at bedtime. nystatin (MYCOSTATIN) powder Apply 1 application to affected area four times daily. montelukast (SINGULAIR) 10 mg tablet Take 1 tablet by mouth daily at bedtime. metFORMIN (GLUCOPHAGE) 500 mg tablet Take 1 tablet by mouth twice daily with meals. isosorbide mononitrate ER (IMDUR) 30 mg 24 hr tablet Take 1 tablet by mouth twice daily. cholecalciferol, vitamin D3, (VITAMIN D3 ORAL) Take by mouth. albuterol HFA (PROAIR HFA) 90 mcg/actuation inhaler Inhale 2 Puffs as instructed every 4 hours as needed for wheezing/shortness of breath. acetaminophen (TYLENOL ARTHRITIS PAIN) 650 mg CR tablet Take 2 tablets by mouth every 8 hours as needed. amiodarone (PACERONE) 200 mg tablet Take 1 tablet by mouth once daily. Per Cardio, Dr. Garcia carvedilol (COREG) 6.25 mg tablet Take 1 tablet by mouth twice daily with meals. apixaban (ELIQUIS) 5 mg tab(s) Take 1 tablet by mouth twice daily. Per Dr. Garcia nitroglycerin sublingual (NITROQUICK) 0.4 mg SL tablet Dissolve 1 tablet under the tongue every 5 minutes as needed for Chest Pain. albuterol (PROVENTIL) 2.5 mg /3 mL (0.083 %) nebulizer solution Inhale 1 vial (3 ml) via nebulizer every 4 hours as needed for wheezing/shortness of breath. Use over 5-15 minutes SYMBICORT 160-4.5 mcg/actuation inhaler Inhale 2 Puffs as instructed twice daily. COMPOUNDED PRESCRIPTION CPAP at 13 crainal nerves H2O with humidification, medium [employer] Simplus full face mask without chin strap and appropriate supplies. # one device Dx: G47.33 Benzonatate 200 mg capsule Take 1 capsule by mouth three times daily as needed. (Patient not taking: No sig reported) COMPOUNDED PRESCRIPTION CPAP 13 cmH2O with humidification. A [employer] Simplus full face mask without chin strap. Dx: G47.33 ALLERGIES: Sulfa (Sulfonamide Antibiotics) and Cipro [Ciprofloxacin] PERSONAL HISTORY: Social History Tobacco Use Smoking status: Former Packs/day: 1.00 Years: 40.00 Pack years: 40.00 Types: Cigarettes Quit date: 05/23/2012 Years since quittin.4 Smokeless tobacco: Never Vaping Use Vaping Use: Never used Substance Use Topics Alcohol use: Yes Comment: wine on occasion Drug use: Not Currently FAMILY HISTORY Problem Relation Age of Onset Stroke Mother 89 Heart Father 76 Prostate Cancer Father Prostate Cancer Brother Cancer Maternal Grandfather lung The review of systems data was entered by the nurse and reviewed by me Nursing Notes: Maritza Wright LPN 11/13/2022 10:05 AM Signed REVIEW OF SYSTEMS: General: The patient denies fatigue, denies weight loss, denies weight gain, denies feeling hot, and denies feelings of cold. Eyes: The patient denies glaucoma, denies eye injury/surgery, does wear glasses or contacts. Ear/Nose/Throat: The patient notes allergies, denies hayfever, denies ear infections, and denies bloody noses. Cardiovascular: The patient notes chest pain, notes heart disease, notes high blood pressure,notes cardiac stent, denies prior heart attack, denies irregular heart beat, notes high cholesterol, denies poor circulation, denies heart failure, other cardiac issues, denies claudication, denies cold feet, denies peripheral arterial stent. Respiratory: The patient denies tuberculosis, notes pneumonia, denies frequent cough, denies pulmonary embolism, denies shortness of breath, and denies coughing up blood, note COPD. Gastrointestinal: The patient denies difficulty swallowing, denies acid reflux, denies ulcers, denies vomiting, denies jaundice/hepatitis, denies gallbladder problems, denies black or tarry stools, denies hemorrhoids, denies bleeding from rectum, denies diverticulitis, denies constipation, denies diarrhea, denies loss of stool control, and denies hernias. Kidney/Bladder: The patient denies kidney stones, denies urine infections, and denies bloody urine. Skin: The patient notes a history of skin cancer, denies bleeding/changing moles, and denies a history of skin rash. Neurologic: The patient denies a history of epilepsy/convulsions, notes headaches, denies head/spinal injuries, and notes stroke/TIA. Psychiatric: The patient denies psychiatric medications, denies depression, and denies voices, denies substance abuse. Endocrine: The patient denies thyroid disorders, notes diabetes, and denies hormonal problems. Hematologic: The patient denies a history of bruising, denies bleeding, and denies anemia, denies blood clots. Infections: The patient notes a history of measles and mumps, denies rheumatic fever, and denies sexually transmitted diseases. Musculoskeletal: The patient denies back pain/injury, notes back problems, denies sciatica, notes knee/foot trouble, denies arthritis, or denies gout. When was patient's last Mammogram screening? N/A Last Colonoscopy: 2012 Maritza Wright LPN PHYSICAL EXAMINATION: General: The patient is 76 year old male, well nourished, well hydrated in no acute distress. The patient is oriented to time, place, and person. VITALS: Blood pressure 142/70, pulse 74, temperature 36.3 C (97.3 F), height 170.2 cm (5' 7 ), weight 95.3 kg (210 lb), SpO2 97 %. Body mass index is 32.89 kg/m . Head: Normal cephalic, atraumatic Eyes: pupils are equally round, sclera are clear/anicteric, wearing glasses Neck is supple with no tracheal deviation Respiratory: Normal respiratory excursion and pattern. Abdominal exam: benign Extremities: mid lateral calf with skin lesion that appears to be a sebaceous cyst with central pore but not well defined probably due to infection, 1+ pitting edema of bilateral lower extremities Neuro: non focal Psych: normal mood Assessment IMPRESSION: skin infection/cellulitis/abscess PLAN: I have discussed the above with the patient. The patient has noted clinical improvement. I have offered excision of this probable infected sebaceous cyst. I have explained the procedure to the patient. The wound will be left open and will have to heal by secondary intention, this may take some time as the patient has lower extremity edema which is thus indicative of future poor healing status. I have recommended elevating the lower extremities above the level of the heart to combat the edema, but the patient states that he cannot do this. I have counseled the patient as to the risks of the procedure, including but not limited to: infection, bleeding, injury to any blood vessels/nerves, scar tissue, continued infection/poor healing, complications of anesthesia, etc. - the patient understands. The patient refuses procedure. He did not schedule for any procedure in this patient encounter. I have encouraged patient to return to clinic if he changes his mind or if any worsening signs/symptoms. I have answered all questions to the patient s satisfaction and the patient has no further questions. I have confirmed and edited as necessary, the PFSH and ROS obtained by others. Consultation requested by Maylin Pimentel for an opinion regarding patient's skin infection. My final recommendations will be communicated back to the requesting physician by way of shared Medical record or letter to requesting physician via US mail. . Diagnoses: (L72.3) Sebaceous cyst (L02.91) Abscess Return to Clinic: The patient has been counseled to return to clinic if any worsening signs/symptoms. Patient acknowledges this. Medical Decision Making: Problems: Low: Stable chronic illness and Acute, uncomplicated illness or injury Medical Decision Making Level: 2 - Straightforward Nhi Guo MD documented in this encounter [facility] 11-13-2022 Nurse Note REVIEW OF SYSTEMS: General: The patient denies fatigue, denies weight loss, denies weight gain, denies feeling hot, and denies feelings of cold. Eyes: The patient denies glaucoma, denies eye injury/surgery, does wear glasses or contacts. Ear/Nose/Throat: The patient notes allergies, denies hayfever, denies ear infections, and denies bloody noses. Cardiovascular: The patient notes chest pain, notes heart disease, notes high blood pressure,notes cardiac stent, denies prior heart attack, denies irregular heart beat, notes high cholesterol, denies poor circulation, denies heart failure, other cardiac issues, denies claudication, denies cold feet, denies peripheral arterial stent. Respiratory: The patient denies tuberculosis, notes pneumonia, denies frequent cough, denies pulmonary embolism, denies shortness of breath, and denies coughing up blood, note COPD. Gastrointestinal: The patient denies difficulty swallowing, denies acid reflux, denies ulcers, denies vomiting, denies jaundice/hepatitis, denies gallbladder problems, denies black or tarry stools, denies hemorrhoids, denies bleeding from rectum, denies diverticulitis, denies constipation, denies diarrhea, denies loss of stool control, and denies hernias. Kidney/Bladder: The patient denies kidney stones, denies urine infections, and denies bloody urine. Skin: The patient notes a history of skin cancer, denies bleeding/changing moles, and denies a history of skin rash. Neurologic: The patient denies a history of epilepsy/convulsions, notes headaches, denies head/spinal injuries, and notes stroke/TIA. Psychiatric: The patient denies psychiatric medications, denies depression, and denies voices, denies substance abuse. Endocrine: The patient denies thyroid disorders, notes diabetes, and denies hormonal problems. Hematologic: The patient denies a history of bruising, denies bleeding, and denies anemia, denies blood clots. Infections: The patient notes a history of measles and mumps, denies rheumatic fever, and denies sexually transmitted diseases. Musculoskeletal: The patient denies back pain/injury, notes back problems, denies sciatica, notes knee/foot trouble, denies arthritis, or denies gout. When was patient's last Mammogram screening? N/A Last Colonoscopy: 2012 Maritza Wright LPN documented in this encounter [facility] 11-08-2022 Miscellaneous Notes Patient notified of results and provider's instructions. Patient verbalizes understanding. Pt was transferred to schedule appointment with General Surgery. Jameel Marquez LPN Let patient know that his US shows a fluid collection in the area of concern but unable to say for sure if cyst, abscess or even a hematoma. At this point I would like to have him see gen surgery for further eval and next step to possible removal. Maylin Pimentel PA-C documented in this encounter [facility] 11-06-2022 Note HNO ID: [id number] Author: RT Rodney(R) Service: ? Author Type: Technologist Type: Progress Notes Filed: 11/06/2022 11:17 AM Note Text: Radiology Service Progress Note PATIENT NAME: Francisco Faith DATE OF SERVICE: November 06, 2022 TIME: 11:16 AM PATIENT IDENTITY VERIFICATION COMPLETED USING TWO (2) IDENTIFIERS: Name and Date of confirmed by patient verbally. FALL SCREENING: Has the patient had 2 falls in the last year or 1 fall with injury or currently using an Ambulatory Assistive Device (Walker, Cane, Wheelchair, Crutches, etc.)? No PATIENT GENDER DATA: Male PATIENT RELEVANT IMPLANT DATA REVIEWED: Not Applicable RADIOLOGY DEPARTMENT: Ultrasound PERIPHERAL IV DATA: Not applicable SIGNED BY: Cate Hernandez RDMS, RVT- Caryl- student November 06, 2022 11:16 AM [facility] 11-03-2022 Note [facility] 11-03-2022 History of Present illness Narrative Chief Complaint Patient presents with: Recheck: Cellulitis right leg HPI Francisco Faith is a 76 year old male who presents here today for recheck. Patient was seen by Azul beebe for possible cellulitis. Was on Keflex then started on doxy on 10/23. Patient states that the area of concern is still quite tender. In review of the note from 10/17. Patient had a lump under the skin for about 1 week before it became red and warm to the touch. Past medical history, appointments, medications, allergies reviewed. Previous Medical History PAST MEDICAL HISTORY Diagnosis Date AK (actinic keratosis) 05/16/2017 right scalp treated 05/16/2017 cryo Left forehead and 4 lesion on crown of head treated 05/21/18 cryo Allergic rhinitis 05/19/2014 Anxiety 12/03/2012 Arthritis of lumbar spine 10/24/2016 Atherosclerosis of autologous vein bypass graft of right lower extremity with intermittent claudication (HCC) 04/04/2021 Benign non-nodular prostatic hyperplasia with lower urinary tract symptoms 03/01/2016 Bilateral carotid artery disease ([facility]) 10/25/2015 US 11/2016: 20-40% on right 60-80% on left US 11/2017: stable with 20-40% on right and 60-80% on left Blood type O+ 03/29/2020 Cardiomyopathy, ischemic 09/26/2013 Chronic pain 09/11/[address] Barntet. COLD (chronic obstructive lung disease) ([facility]) 02/01/2015 Moderate: Seeing Dr. Slaughter Controlled type 2 diabetes mellitus without complication, without long-term current use of insulin ([facility]) 06/20/2016 Coronary artery disease involving coronary bypass graft of ak chin heart without angina pectoris 02/01/[address] Garcia pacemaker/defib, 3 stents and 4 vessle CABG Current use of proton pump inhibitor 03/24/2017 DDD (degenerative disc disease), lumbar 06/13/2013 Diabetic eye exam ([facility]) 11/13/2016 Last done: 11/13/2016 Esophageal spasm 04/18/2017 Essential hypertension 10/02/2020 Essential hypertension with goal blood pressure less than 140/90 10/25/2015 Ex-smoker 12/10/2012 Family history of prostate cancer 12/10/2012 Gastroesophageal reflux disease without esophagitis 10/25/2015 Gynecomastia 01/22/2013 Lt side, Biopsy neg. History of cutaneous T-cell lymphoma History of CVA (cerebrovascular accident) 09/11/2013 In 2010. If tired left leg will drag slightly. ICD (implantable cardioverter-defibrillator), biventricular, in situ 09/26/2013 Lumbago 02/20/2013 Lumbar spondylosis 06/13/2013 Lung nodule < 6cm on CT 05/23/[address] chest 05/2018. Measuring up to 4mm. Repeat CT in 1 year. 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 Nocturia 12/10/2012 Obstructive sleep apnea syndrome 10/25/2015 CPAP 13 cm H2O On amiodarone therapy 01/04/2021 Per cardio< Dr. Garcia for paroxysmal A. Flutter, TV started 01/03/2021 Other malignant neoplasm of other specified sites of skin 11/02/2008 Pain in joint, shoulder region 09/22/2013 Peripheral T-cell lymphoma, pleomorphic small cell (HCC) Peripheral vascular disease, unspecified (HCC) PVD (peripheral vascular disease) (HCC) 12/03/2012 3 stents to left leg S/P CABG x 3 09/26/2013 Seborrheic keratoses, inflamed 05/16/2017 left upper chest treated with cryo 05/16/2017 Spinal stenosis of lumbar region 02/20/2013 Stenosis of left carotid artery 04/04/2021 Type 2 diabetes mellitus with peripheral vascular disease (HCC) 12/03/2012 3 stents to left leg Urge incontinence 03/01/2016 Previous Surgical History PAST SURGICAL HISTORY Procedure Laterality Date *STRESS TEST PC 11/14/2016 Negative 2D ECHO (EXEP) 01/19/2021 EF=55%, LA mildly enlarged, 1-2+ TI, 2D ECHO COMPLETE INP 08/27/2012 EF=50%, trace MR andTR ANES PERMANENT TRANSVENOUS PACEMAKER INSERTION 03/2012 Permanent Pacemaker (revision) ARTHRP KNE CONDYLE&PLATU MEDIAL&LAT COMPARTMENTS 03/30/2020 BYP OTH/THN VEIN FEMORAL-POPLITEAL right leg 11/2012 Bypass graft fem-pop BYPASS COMPOSITE GRAFT PROSTHETIC & VEIN left leg 03/2012 Bypass graft other, composite COLONOSCOPY FLX DX W/COLLJ SPEC WHEN PFRMD 03/08/2006 Colonoscopy Christian - no polyps COLONOSCOPY FLX DX W/COLLJ SPEC WHEN PFRMD 08/14/2000 Colonoscopy Christian- no polyps COLONOSCOPY FLX DX W/COLLJ SPEC WHEN PFRMD 02/26/2013 Colonoscopy, no polyps, recheck 10 yrs CORONARY ARTERY BYP W/VEIN & ARTERY GRAFT 3 VEIN 05/2012 CABG, three grafts CORONARY STENT EA VESSEL 2004 Drug eluting ESOPHAGOGASTRODUODENOSCOPY TRANSORAL DIAGNOSTIC 03/08/2006 EGD Christian PAST SURGICAL HISTORY OF Left 01/01/2020 left knee arthroscopic chondroplasty medial and patello PERMANENT PACEMAKER 2005 STRESS TEST 10/30/2017 normal stress with EF=64% Family History FAMILY HISTORY Problem Relation Age of Onset Stroke Mother 89 Heart Father 76 Prostate Cancer Father Prostate Cancer Brother Cancer Maternal Grandfather lung Patient Allergies ALLERGIES Allergen Reactions Sulfa (Sulfonamide * Unknown unknown, as a child Cipro [Ciprofloxaci* Swelling Current Medications Current Outpatient Medications on File Prior to Visit Medication Sig amLODIPine (NORVASC) 10 mg tablet Take 1 tablet by mouth once daily. fluticasone (FLONASE) 50 mcg/actuation nasal spray 1 spray each nostril 1-2 times a day ramipril (ALTACE) 10 mg capsule Take 1 capsule by mouth twice daily. atorvastatin (LIPITOR) 80 mg tablet Take 1 tablet by mouth daily at bedtime. nystatin (MYCOSTATIN) powder Apply 1 application to affected area four times daily. montelukast (SINGULAIR) 10 mg tablet Take 1 tablet by mouth daily at bedtime. metFORMIN (GLUCOPHAGE) 500 mg tablet Take 1 tablet by mouth twice daily with meals. isosorbide mononitrate ER (IMDUR) 30 mg 24 hr tablet Take 1 tablet by mouth twice daily. cholecalciferol, vitamin D3, (VITAMIN D3 ORAL) Take by mouth. albuterol HFA (PROAIR HFA) 90 mcg/actuation inhaler Inhale 2 Puffs as instructed every 4 hours as needed for wheezing/shortness of breath. acetaminophen (TYLENOL ARTHRITIS PAIN) 650 mg CR tablet Take 2 tablets by mouth every 8 hours as needed. amiodarone (PACERONE) 200 mg tablet Take 1 tablet by mouth once daily. Per Cardio, Dr. Garcia carvedilol (COREG) 6.25 mg tablet Take 1 tablet by mouth twice daily with meals. apixaban (ELIQUIS) 5 mg tab(s) Take 1 tablet by mouth twice daily. Per Dr. Garcia nitroglycerin sublingual (NITROQUICK) 0.4 mg SL tablet Dissolve 1 tablet under the tongue every 5 minutes as needed for Chest Pain. albuterol (PROVENTIL) 2.5 mg /3 mL (0.083 %) nebulizer solution Inhale 1 vial (3 ml) via nebulizer every 4 hours as needed for wheezing/shortness of breath. Use over 5-15 minutes SYMBICORT 160-4.5 mcg/actuation inhaler Inhale 2 Puffs as instructed twice daily. Benzonatate 200 mg capsule Take 1 capsule by mouth three times daily as needed. (Patient not taking: No sig reported) COMPOUNDED PRESCRIPTION CPAP at 13 crainal nerves H2O with humidification, medium [employer] Simplus full face mask without chin strap and appropriate supplies. # one device Dx: G47.33 COMPOUNDED PRESCRIPTION CPAP 13 cmH2O with humidification. A [place] Simplus full face mask without chin strap. Dx: G47.33 No current facility-administered medications on file prior to visit. Social History Social History Tobacco Use Smoking status: Former Packs/day: 1.00 Years: 40.00 Pack years: 40.00 Types: Cigarettes Quit date: 05/23/2012 Years since quittin.4 Smokeless tobacco: Never Vaping Use Vaping Use: Never used Substance Use Topics Alcohol use: Yes Comment: wine on occasion Drug use: Not Currently Review of Symptoms REVIEW OF SYSTEMS See hpi EXAM: BP 122/70 (BP Site: Left Arm, BP Position: Sitting, BP Cuff Size: Large Adult) Pulse 70 Temp 36.1 C (97 F) Resp 18 Wt 94.8 kg (209 lb) BMI 33.39 kg/m General Appearance: Well appearing, alert, in no acute distress, well-hydrated, well nourished.. Skin: painful nodule still present on right lateral barnett/calf. No erythema. No warmth. Health Maintenance List SHINGRIX VACCINE(1 of 2) Never done URINE ALBUMIN:CREATININE RATIO due on 02/24/2023 DILATED RETINAL EXAM due on 03/09/2023 HBA1C due on 03/30/2023 LDL CHOLESTEROL due on 09/28/2023 DIABETIC FOOT EXAM due on 09/28/2023 ANNUAL PCP TEAM CHRONIC DISEASE VISIT due on 10/24/2023 BP CONTROLLED (<130/80) due on 10/24/2023 DTAP,TDAP,TD(2 - Td or Tdap) due on 04/19/2027 INFLUENZA Completed ADVANCE DIRECTIVE DISCUSSION Completed DEPRESSION ASSESSMENT Completed HEPATITIS C SCREENING Completed PNEUMOCOCCAL: 65+ Completed SPIROMETRY Discontinued COVID-19 VACCINE Discontinued Data reviewed ASSESSMENT/PLAN: 1. Skin mass - ICD9: 782.2, ICD10: R22.9 (primary diagnosis) Will get US - US EXTREMITY MASS/FLUID COLLECTION RIGHT 2. Cellulitis of skin - ICD9: 682.9, ICD10: L03.90 Cellulitis seems to have resolved. Will see what US shows. Maylin Pimentel PA-C documented in this encounter [facility] 11-01-2022 Note [facility] 11-01-2022 History of Present illness Narrative POPULATION HEALTH NAVIGATION OUTREACH Action/FYI November 01, 2022 4:07 PM Spoke with patient. He has been rescheduled for November 03, 2022 with AIDAN Benavidez, thank you Patient Identified by Name and : YES, via phone Outreach Outcome/Action Spoke to patient / parent / legal guardian: Patient scheduled Did you use a PCP flex slot to schedule this appointment? No Reason for Outreach Community Monitoring [place] Payer: Payor: MEDICARE / Plan: MEDICARE A AND B / Product Type: Medicare / Care Gap Reviewed:: Follow-up appointment Reminder: Reminder note to check Health Maintenance for items below Health Maintenance items due: SHINGRIX VACCINE(1 of 2) Never done Navigation Signature: Tiffanie Andrade MA November 01, 2022 4:07 PM CDM Telephonic Outreach Provider Action/FYI Patient has completed doxycyline. No change to cellulitis. Was to follow up yesterday. Missed appointment. Requesting assistance to reschedule Contacted for: Routine Telephonic Outreach Contact made with patient: Yes Patient identified by name and date of . Discussed care with patient Are you experiencing any new or worsening symptoms you need to talk about today? Yes Based on assessment rn, the following disposition is advised: Symptoms present, not severe. Routed to: Navigation Team: PCP visit within 7 days KEITH Education Provided this Outreach: No Lopez Brown RN November 01, 2022 3:47 PM documented in this encounter [facility] 11-01-2022 Note [facility] 10-23-2022 Note [facility] 10-23-2022 Instructions Azul Pardo APRN.CNP - 10/23/2022 9:23 AM EDT Stop keflex Start doxycycline Follow up with Maylin in 3-4 days documented in this encounter [facility] 10-23-2022 History of Present illness Narrative Chief Complaint Patient presents with: Follow Up HPI Francisco Faith is a 76 year old male who presents here today for Above Complaints.. Patient presents for cellulitis follow up. Patient has been on keflex for the past 5 days with no improvement of symptoms. Past medical history, appointments, medications, allergies reviewed. 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 Barnett. COLD (chronic obstructive lung disease) ([facility]) 02/01/2015 Moderate: Seeing Dr. Slaughter Controlled type 2 diabetes mellitus without complication, without long-term current use of insulin ([facility]) 06/20/2016 Coronary artery disease involving coronary bypass graft of ak chin heart without angina pectoris 02/01/[address] Garcia pacemaker/defib, 3 stents and 4 vessle CABG Current use of proton pump inhibitor 03/24/2017 DDD (degenerative disc disease), lumbar 06/13/2013 Diabetic eye exam ([facility]) 11/13/2016 Last done: 11/13/2016 Esophageal spasm 04/18/2017 Essential hypertension 10/02/2020 Essential hypertension with goal blood pressure less than 140/90 10/25/2015 Ex-smoker 12/10/2012 Family history of prostate cancer 12/10/2012 Gastroesophageal reflux disease without esophagitis 10/25/2015 Gynecomastia 01/22/2013 Lt side, Biopsy neg. History of cutaneous T-cell lymphoma History of CVA (cerebrovascular accident) 09/11/2013 In 2010. If tired left leg will drag slightly. ICD (implantable cardioverter-defibrillator), biventricular, in situ 09/26/2013 Lumbago 02/20/2013 Lumbar spondylosis 06/13/2013 Lung nodule < 6cm on CT 05/23/[address] chest 05/2018. Measuring up to 4mm. Repeat CT in 1 year. 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 Nocturia 12/10/2012 Obstructive sleep apnea syndrome 10/25/2015 CPAP 13 cm H2O On amiodarone therapy 01/04/2021 Per cardio< Dr. Garcia for paroxysmal A. Flutter, TV started 01/03/2021 Other malignant neoplasm of other specified sites of skin 11/02/2008 Pain in joint, shoulder region 09/22/2013 Peripheral T-cell lymphoma, pleomorphic small cell (HCC) Peripheral vascular disease, unspecified ([facility]) PVD (peripheral vascular disease) ([facility]) 12/03/2012 3 stents to left leg S/P CABG x 3 09/26/2013 Seborrheic keratoses, inflamed 05/16/2017 left upper chest treated with cryo 05/16/2017 Spinal stenosis of lumbar region 02/20/2013 Stenosis of left carotid artery 04/04/2021 Type 2 diabetes mellitus with peripheral vascular disease (HCC) 12/03/2012 3 stents to left leg Urge incontinence 03/01/2016 Previous Surgical History PAST SURGICAL HISTORY Procedure Laterality Date *STRESS TEST PC 11/14/2016 Negative 2D ECHO (EXEP) 01/19/2021 EF=55%, LA mildly enlarged, 1-2+ TI, 2D ECHO COMPLETE INP 08/27/2012 EF=50%, trace MR andTR ANES PERMANENT TRANSVENOUS PACEMAKER INSERTION 03/2012 Permanent Pacemaker (revision) ARTHRP KNE CONDYLE&PLATU MEDIAL&LAT COMPARTMENTS 03/30/2020 BYP OTH/THN VEIN FEMORAL-POPLITEAL right leg 11/2012 Bypass graft fem-pop BYPASS COMPOSITE GRAFT PROSTHETIC & VEIN left leg 03/2012 Bypass graft other, composite COLONOSCOPY FLX DX W/COLLJ SPEC WHEN PFRMD 03/08/2006 Colonoscopy [facility] - no polyps COLONOSCOPY FLX DX W/COLLJ SPEC WHEN PFRMD 08/14/2000 Colonoscopy [facility]- no polyps COLONOSCOPY FLX DX W/COLLJ SPEC WHEN PFRMD 02/26/2013 Colonoscopy, no polyps, recheck 10 yrs CORONARY ARTERY BYP W/VEIN & ARTERY GRAFT 3 VEIN 05/2012 CABG, three grafts CORONARY STENT EA VESSEL 2004 Drug eluting ESOPHAGOGASTRODUODENOSCOPY TRANSORAL DIAGNOSTIC 03/08/2006 EGD [facility] PAST SURGICAL HISTORY OF Left 01/01/2020 left knee arthroscopic chondroplasty medial and patello PERMANENT PACEMAKER 2005 STRESS TEST 10/30/2017 normal stress with EF=64% Family History FAMILY HISTORY Problem Relation Age of Onset Stroke Mother 89 Heart Father 76 Prostate Cancer Father Prostate Cancer Brother Cancer Maternal Grandfather lung Patient Allergies ALLERGIES Allergen Reactions Sulfa (Sulfonamide * Unknown unknown, as a child Cipro [Ciprofloxaci* Swelling Current Medications Current Outpatient Medications on File Prior to Visit Medication Sig amLODIPine (NORVASC) 10 mg tablet Take 1 tablet by mouth once daily. fluticasone (FLONASE) 50 mcg/actuation nasal spray 1 spray each nostril 1-2 times a day ramipril (ALTACE) 10 mg capsule Take 1 capsule by mouth twice daily. atorvastatin (LIPITOR) 80 mg tablet Take 1 tablet by mouth daily at bedtime. nystatin (MYCOSTATIN) powder Apply 1 application to affected area four times daily. montelukast (SINGULAIR) 10 mg tablet Take 1 tablet by mouth daily at bedtime. metFORMIN (GLUCOPHAGE) 500 mg tablet Take 1 tablet by mouth twice daily with meals. isosorbide mononitrate ER (IMDUR) 30 mg 24 hr tablet Take 1 tablet by mouth twice daily. cholecalciferol, vitamin D3, (VITAMIN D3 ORAL) Take by mouth. Benzonatate 200 mg capsule Take 1 capsule by mouth three times daily as needed. (Patient not taking: No sig reported) albuterol HFA (PROAIR HFA) 90 mcg/actuation inhaler Inhale 2 Puffs as instructed every 4 hours as needed for wheezing/shortness of breath. acetaminophen (TYLENOL ARTHRITIS PAIN) 650 mg CR tablet Take 2 tablets by mouth every 8 hours as needed. amiodarone (PACERONE) 200 mg tablet Take 1 tablet by mouth once daily. Per Cardio, Dr. Garcia carvedilol (COREG) 6.25 mg tablet Take 1 tablet by mouth twice daily with meals. apixaban (ELIQUIS) 5 mg tab(s) Take 1 tablet by mouth twice daily. Per Dr. Garcia nitroglycerin sublingual (NITROQUICK) 0.4 mg SL tablet Dissolve 1 tablet under the tongue every 5 minutes as needed for Chest Pain. albuterol (PROVENTIL) 2.5 mg /3 mL (0.083 %) nebulizer solution Inhale 1 vial (3 ml) via nebulizer every 4 hours as needed for wheezing/shortness of breath. Use over 5-15 minutes SYMBICORT 160-4.5 mcg/actuation inhaler Inhale 2 Puffs as instructed twice daily. COMPOUNDED PRESCRIPTION CPAP at 13 crainal nerves H2O with humidification, medium [place] Simplus full face mask without chin strap and appropriate supplies. # one device Dx: G47.33 COMPOUNDED PRESCRIPTION CPAP 13 cmH2O with humidification. A [place] [employer] Simplus full face mask without chin strap. Dx: G47.33 No current facility-administered medications on file prior to visit. Social History Social History Tobacco Use Smoking status: Former Packs/day: 1.00 Years: 40.00 Pack years: 40.00 Types: Cigarettes Quit date: 05/23/2012 Years since quittin.4 Smokeless tobacco: Never Vaping Use Vaping Use: Never used Substance Use Topics Alcohol use: Yes Comment: wine on occasion Drug use: Not Currently Review of Symptoms REVIEW OF SYSTEMS SEE HPI EXAM: BP 120/68 Pulse 66 Resp 18 Wt 94.8 kg (209 lb) BMI 33.39 kg/m General Appearance: Well appearing, alert, in no acute distress, well-hydrated, well nourished.. Skin: Positives: Erythema: right lower leg 2 cmx 1.5cm to lateral aspect of mid right calf. Warm and tender to the touch. Health Maintenance List SHINGRIX VACCINE(1 of 2) Never done URINE ALBUMIN:CREATININE RATIO due on 02/24/2023 DILATED RETINAL EXAM due on 03/09/2023 HBA1C due on 03/30/2023 LDL CHOLESTEROL due on 09/28/2023 DIABETIC FOOT EXAM due on 09/28/2023 ANNUAL PCP TEAM CHRONIC DISEASE VISIT due on 10/18/2023 BP CONTROLLED (<130/80) due on 10/18/2023 DTAP,TDAP,TD(2 - Td or Tdap) due on 04/19/2027 INFLUENZA Completed ADVANCE DIRECTIVE DISCUSSION Completed DEPRESSION ASSESSMENT Completed HEPATITIS C SCREENING Completed PNEUMOCOCCAL: 65+ Completed SPIROMETRY Discontinued COVID-19 VACCINE Discontinued ASSESSMENT/PLAN: 1. Cellulitis of skin - ICD9: 682.9, ICD10: L03.90 - Begin treatment with doxycycline - No lymphangetic streaking, this was defined for patient to watch for and to seek medical care immediately if appears - Area of cellulitis defined with pen, seek further attention if this area continues to enlarge - Follow up for recheck in three days - DOXYCYCLINE MONOHYDRATE 100 MG TABLET Azul Pardo APRN.CNP documented in this encounter [facility] 10-17-2022 Note [facility] 10-17-2022 History of Present illness Narrative Radiology Service Progress Note DATE OF SERVICE: October 17, 2022 TIME: 12:21 PM PATIENT IDENTITY VERIFICATION COMPLETED USING TWO (2) STANDARD IDENTIFIERS: Name and Date of confirmed by patient verbally. FALL SCREENING: Has the patient had 2 falls in the last year or 1 fall with injury or currently using an Ambulatory Assistive Device (Walker, Cane, Wheelchair, Crutches, etc.)? No PATIENT GENDER DATA: Male PATIENT RELEVANT IMPLANT DATA REVIEWED: Yes ALLERGIES: Reviewed and unchanged CONTRAST ALLERGY: NO. EXAM: CT -CONTRAST INDUCED NEPHROPATHY RISK FACTORS: Patient age > 60 years CREATININE: Creatinine Date Value Ref Range Status 09/27/2022 1.19 0.73 - 1.22 mg/dL Final 02/24/2022 1.29 (H) 0.73 - 1.22 mg/dL Final 08/02/2021 0.94 0.73 - 1.22 mg/dL Final Estimated Glomerular Filtration Rate Date Value Ref Range Status 09/27/2022 63 >=60 mL/min/1.73m Final Comment: Estimated Glomerular Filtration Rate (eGFR) is calculated using the 2020 CKD-EPI creatinine equation. This equation utilizes serum creatinine, sex, and age as parameters. The creatinine assay has traceable calibration to isotope dilution-mass spectrometry. Refer to KDIGO guidelines for clinical interpretation. In patients with unstable renal function, e.g. those with acute kidney injury, the eGFR may not accurately reflect actual GFR. eGFR- Date Value Ref Range Status 08/02/2021 >60 Final P.O.C.T. RESULTS: POC done: Yes, See Lab Tab October 17, 2022 TREATMENT: N/A PERIPHERAL IV DATA: Ambulatory: A peripheral IV was started in the Left antecubital site with a Angio cath: 18 gauge. RADIOLOGY DEPARTMENT: CT; Exam(s) Completed: CTA Brain and CTA Neck SIGNATURE: RT Hetal(R) PATIENT NAME: Francisco Faith DATE: October 17, 2022 TIME: 12:21 PM documented in this encounter [facility] 10-17-2022 Note [facility] 10-17-2022 Instructions Azul Pardo APRN.PLANT PATHOLOGIST - 10/17/2022 9:10 AM EDT Start cephalexin Follow up in 1 week 3. Monitor area for increased swelling, pain, redness or streaking. documented in this encounter [facility] 10-17-2022 History of Present illness Narrative Chief Complaint Patient presents with: Follow Up: Hard lump on right calf, warm to the touch X 1 week HPI Francisco Faith is a 76 year old male who presents here today for Above Complaints.. Patient presents for right calf lump and pain. Patient states that he noticed lump last week but yesterday it became red and warm to the touch. Patient has a significant vascular history and is on Eliquis which he states he takes as directed. Patient reports pain is 1-2 at rest but is 7-8 when palpated. Patient states area has not gotten larger since appearance last week. Past medical history, appointments, medications, allergies reviewed. 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 Barnett. COLD (chronic obstructive lung disease) ([facility]) 02/01/2015 Moderate: Seeing Dr. Slaughter Controlled type 2 diabetes mellitus without complication, without long-term current use of insulin ([facility]) 06/20/2016 Coronary artery disease involving coronary bypass graft of ak chin heart without angina pectoris 02/01/[address] Garcia pacemaker/defib, 3 stents and 4 vessle CABG Current use of proton pump inhibitor 03/24/2017 DDD (degenerative disc disease), lumbar 06/13/2013 Diabetic eye exam (HCC) 11/13/2016 Last done: 11/13/2016 Esophageal spasm 04/18/2017 Essential hypertension 10/02/2020 Essential hypertension with goal blood pressure less than 140/90 10/25/2015 Ex-smoker 12/10/2012 Family history of prostate cancer 12/10/2012 Gastroesophageal reflux disease without esophagitis 10/25/2015 Gynecomastia 01/22/2013 Lt side, Biopsy neg. History of cutaneous T-cell lymphoma History of CVA (cerebrovascular accident) 09/11/2013 In 2010. If tired left leg will drag slightly. ICD (implantable cardioverter-defibrillator), biventricular, in situ 09/26/2013 Lumbago 02/20/2013 Lumbar spondylosis 06/13/2013 Lung nodule < 6cm on CT 05/23/[address] chest 05/2018. Measuring up to 4mm. Repeat CT in 1 year. 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 Nocturia 12/10/2012 Obstructive sleep apnea syndrome 10/25/2015 CPAP 13 cm H2O On amiodarone therapy 01/04/2021 Per cardio< Dr. Garcia for paroxysmal A. Flutter, TV started 01/03/2021 Other malignant neoplasm of other specified sites of skin 11/02/2008 Pain in joint, shoulder region 09/22/2013 Peripheral T-cell lymphoma, pleomorphic small cell (HCC) Peripheral vascular disease, unspecified (HCC) PVD (peripheral vascular disease) ([facility]) 12/03/2012 3 stents to left leg S/P CABG x 3 09/26/2013 Seborrheic keratoses, inflamed 05/16/2017 left upper chest treated with cryo 05/16/2017 Spinal stenosis of lumbar region 02/20/2013 Stenosis of left carotid artery 04/04/2021 Type 2 diabetes mellitus with peripheral vascular disease (HCC) 12/03/2012 3 stents to left leg Urge incontinence 03/01/2016 Previous Surgical History PAST SURGICAL HISTORY Procedure Laterality Date *STRESS TEST PC 11/14/2016 Negative 2D ECHO (EXEP) 01/19/2021 EF=55%, LA mildly enlarged, 1-2+ TI, 2D ECHO COMPLETE INP 08/27/2012 EF=50%, trace MR andTR ANES PERMANENT TRANSVENOUS PACEMAKER INSERTION 03/2012 Permanent Pacemaker (revision) ARTHRP KNE CONDYLE&PLATU MEDIAL&LAT COMPARTMENTS 03/30/2020 BYP OTH/THN VEIN FEMORAL-POPLITEAL right leg 11/2012 Bypass graft fem-pop BYPASS COMPOSITE GRAFT PROSTHETIC & VEIN left leg 03/2012 Bypass graft other, composite COLONOSCOPY FLX DX W/COLLJ SPEC WHEN PFRMD 03/08/2006 Colonoscopy [facility] - no polyps COLONOSCOPY FLX DX W/COLLJ SPEC WHEN PFRMD 08/14/2000 Colonoscopy [facility]- no polyps COLONOSCOPY FLX DX W/COLLJ SPEC WHEN PFRMD 02/26/2013 Colonoscopy, no polyps, recheck 10 yrs CORONARY ARTERY BYP W/VEIN & ARTERY GRAFT 3 VEIN 05/2012 CABG, three grafts CORONARY STENT EA VESSEL 2004 Drug eluting ESOPHAGOGASTRODUODENOSCOPY TRANSORAL DIAGNOSTIC 03/08/2006 EGD [facility] PAST SURGICAL HISTORY OF Left 01/01/2020 left knee arthroscopic chondroplasty medial and patello PERMANENT PACEMAKER 2005 STRESS TEST 10/30/2017 normal stress with EF=64% Family History FAMILY HISTORY Problem Relation Age of Onset Stroke Mother 89 Heart Father 76 Prostate Cancer Father Prostate Cancer Brother Cancer Maternal Grandfather lung Patient Allergies ALLERGIES Allergen Reactions Sulfa (Sulfonamide * Unknown unknown, as a child Cipro [Ciprofloxaci* Swelling Current Medications Current Outpatient Medications on File Prior to Visit Medication Sig amLODIPine (NORVASC) 10 mg tablet Take 1 tablet by mouth once daily. fluticasone (FLONASE) 50 mcg/actuation nasal spray 1 spray each nostril 1-2 times a day ramipril (ALTACE) 10 mg capsule Take 1 capsule by mouth twice daily. atorvastatin (LIPITOR) 80 mg tablet Take 1 tablet by mouth daily at bedtime. nystatin (MYCOSTATIN) powder Apply 1 application to affected area four times daily. montelukast (SINGULAIR) 10 mg tablet Take 1 tablet by mouth daily at bedtime. metFORMIN (GLUCOPHAGE) 500 mg tablet Take 1 tablet by mouth twice daily with meals. isosorbide mononitrate ER (IMDUR) 30 mg 24 hr tablet Take 1 tablet by mouth twice daily. cholecalciferol, vitamin D3, (VITAMIN D3 ORAL) Take by mouth. Benzonatate 200 mg capsule Take 1 capsule by mouth three times daily as needed. (Patient not taking: No sig reported) albuterol HFA (PROAIR HFA) 90 mcg/actuation inhaler Inhale 2 Puffs as instructed every 4 hours as needed for wheezing/shortness of breath. acetaminophen (TYLENOL ARTHRITIS PAIN) 650 mg CR tablet Take 2 tablets by mouth every 8 hours as needed. amiodarone (PACERONE) 200 mg tablet Take 1 tablet by mouth once daily. Per Cardio, Dr. Garcia carvedilol (COREG) 6.25 mg tablet Take 1 tablet by mouth twice daily with meals. apixaban (ELIQUIS) 5 mg tab(s) Take 1 tablet by mouth twice daily. Per Dr. Garcia nitroglycerin sublingual (NITROQUICK) 0.4 mg SL tablet Dissolve 1 tablet under the tongue every 5 minutes as needed for Chest Pain. albuterol (PROVENTIL) 2.5 mg /3 mL (0.083 %) nebulizer solution Inhale 1 vial (3 ml) via nebulizer every 4 hours as needed for wheezing/shortness of breath. Use over 5-15 minutes SYMBICORT 160-4.5 mcg/actuation inhaler Inhale 2 Puffs as instructed twice daily. COMPOUNDED PRESCRIPTION CPAP at 13 crainal nerves H2O with humidification, medium [employer] Simplus full face mask without chin strap and appropriate supplies. # one device Dx: G47.33 COMPOUNDED PRESCRIPTION CPAP 13 cmH2O with humidification. A [employer] Simplus full face mask without chin strap. Dx: G47.33 No current facility-administered medications on file prior to visit. Social History Social History Tobacco Use Smoking status: Former Packs/day: 1.00 Years: 40.00 Pack years: 40.00 Types: Cigarettes Quit date: 05/23/2012 Years since quittin.4 Smokeless tobacco: Never Vaping Use Vaping Use: Never used Substance Use Topics Alcohol use: Yes Comment: wine on occasion Drug use: Not Currently Review of Symptoms REVIEW OF SYSTEMS SEE HPI EXAM: BP 124/76 Pulse 76 Temp 36.5 C (97.7 F) Resp 18 Wt 95.3 kg (210 lb) BMI 33.55 kg/m General Appearance: Well appearing, alert, in no acute distress, well-hydrated, well nourished.. Skin: Positives: Erythema: right lower leg 2 cmx 1.5cm to lateral aspect of mid right calf. Warm and tender to the touch. Musculoskeletal: No joint swelling, deformity, or tenderness. Health Maintenance List SHINGRIX VACCINE(1 of 2) Never done URINE ALBUMIN:CREATININE RATIO due on 02/24/2023 DILATED RETINAL EXAM due on 03/09/2023 HBA1C due on 03/30/2023 LDL CHOLESTEROL due on 09/28/2023 DIABETIC FOOT EXAM due on 09/28/2023 ANNUAL PCP TEAM CHRONIC DISEASE VISIT due on 09/28/2023 BP CONTROLLED (<130/80) due on 10/11/2023 DTAP,TDAP,TD(2 - Td or Tdap) due on 04/19/2027 INFLUENZA Completed ADVANCE DIRECTIVE DISCUSSION Completed DEPRESSION ASSESSMENT Completed HEPATITIS C SCREENING Completed PNEUMOCOCCAL: 65+ Completed SPIROMETRY Discontinued COVID-19 VACCINE Discontinued ASSESSMENT/PLAN: 1. Right calf pain - ICD9: 729.5, ICD10: M79.661 (primary diagnosis) 2. Cellulitis of skin - ICD9: 682.9, ICD10: L03.90 - Begin treatment with Cephalaxin (Keflex). - Follow up in 1 week Azul Pardo APRN.COURTNEY documented in this encounter [facility] 10-10-2022 Note [facility] 10-10-2022 Note HNO ID: [id number] Author: Radha Marina DO Service: ? Author Type: Physician Type: Progress Notes Filed: 10/25/2022 10:22 PM Note Text: This office note has been dictated. Radha Marina DO [facility] 10-10-2022 History of Present illness Narrative This office note has been dictated. Radha Marina DO NAME: FRANC[facility]CO [facility] NO: [id number] DATE OF SERVICE: 10/10/2022 Subjective: Mr. Faith is here to follow up on vascular lab testing. He was last seen by Dr. Barajas in 2020 for carotid artery stenosis. He denies any focal neurologic deficit. He does notice some dizziness and difficulty with his balance, especially when standing. Denies any focal numbness or weakness. Does have a remote history of a stroke. He said he did have a right leg bypass years ago at [facility]. He is unsure of when or who did that as well as some left leg stents. He denies any lower extremity claudication. Objective: His vital signs are stable. He is in no distress. He has no focal neurologic deficit. He does have bilateral lower extremity edema and swelling. Reviewed his arterial studies. His right ICA is 20-39%, his left is 60-79%; however, it is closer to 80%. His velocities have increased since 2019. His duplex of his right leg shows his graft is patent without any significant stenosis. His PVRs are 1.12 on the right and 0.95 on the left. Assessment/Plan: 1. Carotid artery disease. 2. Peripheral arterial disease. Reviewed the findings with Mr. Faith. Recommend he continue his current medications. We will get a CTA of his head and neck to assess for possible revascularization, as his end-diastolic is slowly increasing. He will follow up after his test, or sooner with any concerns. Radha Marina D.O. KB/089 Audio #: [id number] Date Dictated: 10/10/2022 08:52:17 Date Typed: 10/16/2022 07:44:18 Date Revised: documented in this encounter [facility] 10-03-2022 Note [facility] 10-03-2022 History of Present illness Narrative INSIGHT CDM TELEPHONIC OUTREACH Provider Action/FYI: COPD Will repeat PSA in 1-2 months-slightly elevated AIC 6.9 09/27 Contact made with patient: Yes Patient identified by name and . Discussed care with patient It s nice talking to you again. As a reminder, this is our bi-weekly check-in where I will be asking you questions about your health. This will only take a few minutes of your time. Is this a good time? Yes Symptoms What Chronic Disease(s) does the patient have: COPD Do you check your blood pressures at home? No Do you have new or worse shortness of breath with activity? No Do you have new or worsening cough? No Do you have new or worsening wheezing? No Do you need to use your rescue (Albuterol) inhaler or nebulizer more often than normal? No Are you having any other symptoms that your PCP needs to know about? No Symptoms: none Symptom Escalation KEITH Education Ordered -: No The patient required an escalation for symptom(s)? No Medications Do you have any questions about taking your medication or which medications you should be on? No Do you need any medication refills at this time, including any of the medications you might take only when needed? No Social We would like to make sure you have what you need so that your basic needs are met- including your personal safety, food, housing, transportation and medications? Would you like to speak with a social work team cdl driver to help give you support for any of these needs? No It can be normal to feel anxious or down during a time like this. Would you like to talk to a mental health professional about how you have been feeling? No Closing Thank you for taking the time to talk with me today. We want to work with you to ensure that we are keeping your medical condition(s) well-controlled and to keep you healthy and out of the doctor's office or hospital. It s also not too late for me to sign you up for automated weekly questionnaires through [employer]. This is an easy way for us to stay connected each week. Are you interested? No, I understand. We can always sign you up in the future if you change your mind. Just as a reminder, will continue to call you every other week to check in on your health. Our calls should take 10-15 minutes or less. Remember, if you have concerns in between our calls, please call your PCP's office right away. Thank you. Enter next patient outreach date for two weeks on the same day of the week as today in the Track Pt Outreach and End outreach. documented in this encounter [facility] 09-29-2022 Note HNO ID: [id number] Author: Corin Cardenas MA Service: ? Author Type: Maintenance Worker House Trailer Type: Progress Notes Filed: 09/30/2022 1:33 PM Note Text: Scan on 09/29/2022 9:50 AM by External Provider: Pulmonary Corin Cardenas MA [facility] 09-29-2022 History of Present illness Narrative Scan on 09/29/2022 9:50 AM by External Provider: Pulmonary Corin Cardenas MA documented in this encounter [facility] 09-28-2022 Miscellaneous Notes Patient notified of results and provider's instructions. Patient verbalizes understanding. Jameel Marquez LPN Let patient know that his a1c is 6.9 which is up some but overall stable. Cholesterol is okay. Metabolic panel wnl. PSA level is just mildly elevated. Recheck in 1-2 months. 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 Barnett. COLD (chronic obstructive lung disease) ([facility]) 02/01/2015 Moderate: Seeing Dr. Slaughter Controlled type 2 diabetes mellitus without complication, without long-term current use of insulin ([facility]) 06/20/2016 Coronary artery disease involving coronary bypass graft of ak chin heart without angina pectoris 02/01/[address] Garcia pacemaker/defib, 3 stents and 4 vessle CABG Current use of proton pump inhibitor 03/24/2017 DDD (degenerative disc disease), lumbar 06/13/2013 Diabetic eye exam ([facility]) 11/13/2016 Last done: 11/13/2016 Esophageal spasm 04/18/2017 Essential hypertension 10/02/2020 Essential hypertension with goal blood pressure less than 140/90 10/25/2015 Ex-smoker 12/10/2012 Family history of prostate cancer 12/10/2012 Gastroesophageal reflux disease without esophagitis 10/25/2015 Gynecomastia 01/22/2013 Lt side, Biopsy neg. History of cutaneous T-cell lymphoma History of CVA (cerebrovascular accident) 09/11/2013 In 2010. If tired left leg will drag slightly. ICD (implantable cardioverter-defibrillator), biventricular, in situ 09/26/2013 Lumbago 02/20/2013 Lumbar spondylosis 06/13/2013 Lung nodule < 6cm on CT 05/23/[address] chest 05/2018. Measuring up to 4mm. Repeat CT in 1 year. 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 Nocturia 12/10/2012 Obstructive sleep apnea syndrome 10/25/2015 CPAP 13 cm H2O On amiodarone therapy 01/04/2021 Per cardio< Dr. Garcia for paroxysmal A. Flutter, TV started 01/03/2021 Other malignant neoplasm of other specified sites of skin 11/02/2008 Pain in joint, shoulder region 09/22/2013 Peripheral T-cell lymphoma, pleomorphic small cell (HCC) Peripheral vascular disease, unspecified (HCC) PVD (peripheral vascular disease) ([facility]) 12/03/2012 3 stents to left leg S/P CABG x 3 09/26/2013 Seborrheic keratoses, inflamed 05/16/2017 left upper chest treated with cryo 05/16/2017 Spinal stenosis of lumbar region 02/20/2013 Stenosis of left carotid artery 04/04/2021 Type 2 diabetes mellitus with peripheral vascular disease (HCC) 12/03/2012 3 stents to left leg Urge incontinence 03/01/2016 PAST SURGICAL HISTORY Procedure Laterality Date *STRESS TEST PC 11/14/2016 Negative 2D ECHO (EXEP) 01/19/2021 EF=55%, LA mildly enlarged, 1-2+ TI, 2D ECHO COMPLETE INP 08/27/2012 EF=50%, trace MR andTR ANES PERMANENT TRANSVENOUS PACEMAKER INSERTION 03/2012 Permanent Pacemaker (revision) ARTHRP KNE CONDYLE&PLATU MEDIAL&LAT COMPARTMENTS 03/30/2020 BYP OTH/THN VEIN FEMORAL-POPLITEAL right leg 11/2012 Bypass graft fem-pop BYPASS COMPOSITE GRAFT PROSTHETIC & VEIN left leg 03/2012 Bypass graft other, composite COLONOSCOPY FLX DX W/COLLJ SPEC WHEN PFRMD 03/08/2006 Colonoscopy [facility] - no polyps COLONOSCOPY FLX DX W/COLLJ SPEC WHEN PFRMD 08/14/2000 Colonoscopy [facility]- no polyps COLONOSCOPY FLX DX W/COLLJ SPEC WHEN PFRMD 02/26/2013 Colonoscopy, no polyps, recheck 10 yrs CORONARY ARTERY BYP W/VEIN & ARTERY GRAFT 3 VEIN 05/2012 CABG, three grafts CORONARY STENT EA VESSEL 2004 Drug eluting ESOPHAGOGASTRODUODENOSCOPY TRANSORAL DIAGNOSTIC 03/08/2006 EGD [facility] PAST SURGICAL HISTORY OF Left 01/01/2020 left knee arthroscopic chondroplasty medial and patello PERMANENT PACEMAKER 2006 STRESS TEST 10/30/2017 normal stress with EF=64% ALLERGIES: Sulfa (Sulfonamide Antibiotics) and Cipro [Ciprofloxacin] Medications reviewed: Yes FAMILY HISTORY Problem Relation Age of Onset Stroke Mother 89 Heart Father 76 Prostate Cancer Father Prostate Cancer Brother Cancer Maternal Grandfather lung SOCIAL HISTORY: Social History Tobacco Use Smoking status: Former Packs/day: 1.00 Years: 40.00 Pack years: 40.00 Types: Cigarettes Quit date: 05/23/2012 Years since quittin.3 Smokeless tobacco: Never Vaping Use Vaping Use: Never used Substance Use Topics Alcohol use: Yes Comment: wine on occasion Drug use: Not Currently Francisco likes to exercise by rowing machine and light weight. He watches his diet for sodium, low fat and low cholesterol most of the time. List of current specialists seen: Cardio Pulm Derm End of Live Planning discussed including patients advanced directive wishes: Yes I am willing to follow Francisco's advanced directives. Depression Screening 05/01/2017 11/27/2018 02/24/2022 09/27/2022 PHQ-2 Score 0 0 0 0 Depression screening tool completed and reviewed. Based on score and interview, patient is not at risk for depression. Screening tool discussed with patient, and I recommended no further intervention at this time. Functional Ability/Safety Screen 1. Was the patient's timed Up and Go test unsteady or longer than 30 seconds? No 2. Does the patient need help with the phone, transportation, shopping,preparing meals, housework, laundry, medications or managing money? No 3. Does your home have rugs in the hallway, lack of grab bars in the bathroom, lack of handrails on the stairs or have poor lighting? No Hearing Evaluation: hard of hearing PHYSICAL EXAM BP 122/70 (BP Site: Left Arm, BP Position: Sitting, BP Cuff Size: Large Adult) Pulse 68 Temp 36.2 C (97.1 F) Resp 18 Ht 168.5 cm (5' 6.34 ) Wt 94.8 kg (209 lb) BMI 33.39 kg/m Alert and oriented X 3: YES Body mass index is 33.39 kg/m . Visual acuity: sees opto ASSESSMENT/PLAN: 76 year old male The following prevention plan was discussed during the office visit and provided to the patient: See below Maylin Pimentel PA-C Chief Complaint Patient presents with: Medicare Wellness Exam HPI Francisco Faith is a 76 year old male who presents here today for extensive exam. Patient with extensive hx as below. He denies concerns today. Has been following with cardi and pulm. Past medical history, appointments, medications, allergies reviewed. 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 Barnett. COLD (chronic obstructive lung disease) ([facility]) 02/01/2015 Moderate: Seeing Dr. Slaughter Controlled type 2 diabetes mellitus without complication, without long-term current use of insulin ([facility]) 06/20/2016 Coronary artery disease involving coronary bypass graft of ak chin heart without angina pectoris 02/01/[address] Garcia pacemaker/defib, 3 stents and 4 vessle CABG Current use of proton pump inhibitor 03/24/2017 DDD (degenerative disc disease), lumbar 06/13/2013 Diabetic eye exam ([facility]) 11/13/2016 Last done: 11/13/2016 Esophageal spasm 04/18/2017 Essential hypertension 10/02/2020 Essential hypertension with goal blood pressure less than 140/90 10/25/2015 Ex-smoker 12/10/2012 Family history of prostate cancer 12/10/2012 Gastroesophageal reflux disease without esophagitis 10/25/2015 Gynecomastia 01/22/2013 Lt side, Biopsy neg. History of cutaneous T-cell lymphoma History of CVA (cerebrovascular accident) 09/11/2013 In 2010. If tired left leg will drag slightly. ICD (implantable cardioverter-defibrillator), biventricular, in situ 09/26/2013 Lumbago 02/20/2013 Lumbar spondylosis 06/13/2013 Lung nodule < 6cm on CT 05/23/[address] chest 05/2018. Measuring up to 4mm. Repeat CT in 1 year. 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 Nocturia 12/10/2012 Obstructive sleep apnea syndrome 10/25/2015 CPAP 13 cm H2O On amiodarone therapy 01/04/2021 Per cardio< Dr. Garcia for paroxysmal A. Flutter, TV started 01/03/2021 Other malignant neoplasm of other specified sites of skin 11/02/2008 Pain in joint, shoulder region 09/22/2013 Peripheral T-cell lymphoma, pleomorphic small cell (HCC) Peripheral vascular disease, unspecified (HCC) PVD (peripheral vascular disease) (HCC) 12/03/2012 3 stents to left leg S/P CABG x 3 09/26/2013 Seborrheic keratoses, inflamed 05/16/2017 left upper chest treated with cryo 05/16/2017 Spinal stenosis of lumbar region 02/20/2013 Stenosis of left carotid artery 04/04/2021 Type 2 diabetes mellitus with peripheral vascular disease (HCC) 12/03/2012 3 stents to left leg Urge incontinence 03/01/2016 Previous Surgical History PAST SURGICAL HISTORY Procedure Laterality Date *STRESS TEST PC 11/14/2016 Negative 2D ECHO (EXEP) 01/19/2021 EF=55%, LA mildly enlarged, 1-2+ TI, 2D ECHO COMPLETE INP 08/27/2012 EF=50%, trace MR andTR ANES PERMANENT TRANSVENOUS PACEMAKER INSERTION 03/2012 Permanent Pacemaker (revision) ARTHRP KNE CONDYLE&PLATU MEDIAL&LAT COMPARTMENTS 03/30/2020 BYP OTH/THN VEIN FEMORAL-POPLITEAL right leg 11/2012 Bypass graft fem-pop BYPASS COMPOSITE GRAFT PROSTHETIC & VEIN left leg 03/2012 Bypass graft other, composite COLONOSCOPY FLX DX W/COLLJ SPEC WHEN PFRMD 03/08/2006 Colonoscopy [facility] - no polyps COLONOSCOPY FLX DX W/COLLJ SPEC WHEN PFRMD 08/14/2000 Colonoscopy [facility]- no polyps COLONOSCOPY FLX DX W/COLLJ SPEC WHEN PFRMD 02/26/2013 Colonoscopy, no polyps, recheck 10 yrs CORONARY ARTERY BYP W/VEIN & ARTERY GRAFT 3 VEIN 05/2012 CABG, three grafts CORONARY STENT EA VESSEL 2004 Drug eluting ESOPHAGOGASTRODUODENOSCOPY TRANSORAL DIAGNOSTIC 03/08/2006 EGD [facility] PAST SURGICAL HISTORY OF Left 01/01/2020 left knee arthroscopic chondroplasty medial and patello PERMANENT PACEMAKER 2005 STRESS TEST 10/30/2017 normal stress with EF=64% Family History FAMILY HISTORY Problem Relation Age of Onset Stroke Mother 89 Heart Father 76 Prostate Cancer Father Prostate Cancer Brother Cancer Maternal Grandfather lung Patient Allergies ALLERGIES Allergen Reactions Sulfa (Sulfonamide * Unknown unknown, as a child Cipro [Ciprofloxaci* Swelling Current Medications Current Outpatient Medications on File Prior to Visit Medication Sig amLODIPine (NORVASC) 10 mg tablet Take 1 tablet by mouth once daily. fluticasone (FLONASE) 50 mcg/actuation nasal spray 1 spray each nostril 1-2 times a day ramipril (ALTACE) 10 mg capsule Take 1 capsule by mouth twice daily. atorvastatin (LIPITOR) 80 mg tablet Take 1 tablet by mouth daily at bedtime. nystatin (MYCOSTATIN) powder Apply 1 application to affected area four times daily. montelukast (SINGULAIR) 10 mg tablet Take 1 tablet by mouth daily at bedtime. metFORMIN (GLUCOPHAGE) 500 mg tablet Take 1 tablet by mouth twice daily with meals. isosorbide mononitrate ER (IMDUR) 30 mg 24 hr tablet Take 1 tablet by mouth twice daily. cholecalciferol, vitamin D3, (VITAMIN D3 ORAL) Take by mouth. albuterol HFA (PROAIR HFA) 90 mcg/actuation inhaler Inhale 2 Puffs as instructed every 4 hours as needed for wheezing/shortness of breath. acetaminophen (TYLENOL ARTHRITIS PAIN) 650 mg CR tablet Take 2 tablets by mouth every 8 hours as needed. amiodarone (PACERONE) 200 mg tablet Take 1 tablet by mouth once daily. Per Cardio, Dr. Garcia carvedilol (COREG) 6.25 mg tablet Take 1 tablet by mouth twice daily with meals. apixaban (ELIQUIS) 5 mg tab(s) Take 1 tablet by mouth twice daily. Per Dr. Garcia nitroglycerin sublingual (NITROQUICK) 0.4 mg SL tablet Dissolve 1 tablet under the tongue every 5 minutes as needed for Chest Pain. albuterol (PROVENTIL) 2.5 mg /3 mL (0.083 %) nebulizer solution Inhale 1 vial (3 ml) via nebulizer every 4 hours as needed for wheezing/shortness of breath. Use over 5-15 minutes SYMBICORT 160-4.5 mcg/actuation inhaler Inhale 2 Puffs as instructed twice daily. Benzonatate 200 mg capsule Take 1 capsule by mouth three times daily as needed. (Patient not taking: Reported on 09/27/2022) COMPOUNDED PRESCRIPTION CPAP at 13 crainal nerves H2O with humidification, medium [employer] Simplus full face mask without chin strap and appropriate supplies. # one device Dx: G47.33 COMPOUNDED PRESCRIPTION CPAP 13 cmH2O with humidification. A [employer] Simplus full face mask without chin strap. Dx: G47.33 No current facility-administered medications on file prior to visit. Social History Social History Tobacco Use Smoking status: Former Packs/day: 1.00 Years: 40.00 Pack years: 40.00 Types: Cigarettes Quit date: 05/23/2012 Years since quittin.3 Smokeless tobacco: Never Vaping Use Vaping Use: Never used Substance Use Topics Alcohol use: Yes Comment: wine on occasion Drug use: Not Currently Review of Symptoms REVIEW OF SYSTEMS GENERAL: No weight loss, malaise or fevers HEENT: Negative for frequent or significant headaches, No changes in hearing or vision, no nose bleeds or other nasal problems NECK: Negative for lumps, goiter, pain and significant neck swelling RESPIRATORY: Negative for cough, hemoptysis, wheezing, COPD, dyspnea or shortness of breath CARDIOVASCULAR: Negative for chest pain, leg swelling, hypertension, CHF or palpitations GI: Negative for abdominal discomfort, blood in stools or black stools, change in bowel habit, heart burn, nausea, vomiting : No history of dysuria, frequency or incontinence SKIN: Negative for lesions, rash, and itching PSYCH: Negative for sleep disturbance, mood disorder and recent psychosocial stressors HEMATOLOGY/LYMPHOLOGY: Negative for prolonged bleeding, bruising easily or swollen nodes ENDOCRINE: Negative for cold or heat intolerance, polyuria, polydipsia and goiter NEURO: No history of headaches, syncope, paralysis, seizures or tremors EXAM: BP 122/70 (BP Site: Left Arm, BP Position: Sitting, BP Cuff Size: Large Adult) Pulse 68 Temp 36.2 C (97.1 F) Resp 18 Ht 168.5 cm (5' 6.34 ) Wt 94.8 kg (209 lb) BMI 33.39 kg/m General Appearance: Well appearing, alert, in no acute distress, well-hydrated, well nourished. and Obese. Head: Normocephalic, no masses, lesions, tenderness or abnormalities. Eyes: Anicteric sclera. Pupils are equally round and reactive to light. Extraocular movements are intact. . Ears: External ears normal, canals clear, tms pearly valdez. Mild cerumen noted. Nose/Sinuses: Nares normal, septum midline, mucosa normal, no drainage or sinus tenderness. Neck: Supple, no adenopathy; thyroid symmetric, normal size, no bruits. Lungs: Lungs clear to auscultation. No wheezing, rhonchi, rales.. Heart: RRR without murmur, gallop, or rubs. No ectopy. Abdomen: Normal abdominal exam, Abdomen soft, non-tender. Bowel sounds normal. No masses, organomegaly. Extremities: No deformities, edema, skin discoloration, clubbing or cyanosis. Good capillary refill. . Peripheral Pulses: Normal. Neurologic: Gait normal. Reflexes normal and symmetric. Sensation grossly intact.. Feet:Shoes and socks removed, No deformities, ulcers, calluses, normal distal pulses, sensitive to 10 gm monofilament, and vibratory perception normal Health Maintenance List BP CONTROLLED (<130/80) Never done SHINGRIX VACCINE(1 of 2) Never done COVID-19 VACCINE(3 - Booster for Pfizer series) due on 04/19/2021 DILATED RETINAL EXAM due on 10/02/2021 ADVANCE DIRECTIVE DISCUSSION Never done DEPRESSION ASSESSMENT Never done DIABETIC FOOT EXAM due on 08/02/2022 HBA1C due on 08/27/2022 URINE ALBUMIN:CREATININE RATIO due on 02/24/2023 LDL CHOLESTEROL due on 02/24/2023 ANNUAL PCP TEAM CHRONIC DISEASE VISIT due on 07/26/2023 DTAP,TDAP,TD(2 - Td or Tdap) due on 04/19/2027 INFLUENZA Completed HEPATITIS C SCREENING Completed PNEUMOCOCCAL: 65+ Completed SPIROMETRY Discontinued Data reviewed ASSESSMENT/PLAN: 1. Medicare annual wellness visit, subsequent - ICD9: V70.0, ICD10: Z00.00 (primary diagnosis) - Counseled on healthy diet and regular exercise - Discussed need for and benefit of weight loss. BMI 33.39 kg/(m^2) 2. Advanced care planning/counseling discussion - ICD9: V65.49, ICD10: Z71.89 Paperwork given 3. Controlled type 2 diabetes mellitus with diabetic peripheral angiopathy without gangrene, without long-term current use of insulin (HCC) - ICD9: 250.70, 443.81, ICD10: E11.51 Await labs - continue current management - HGB A1C - COMP METABOLIC PANEL 4. Type 2 diabetes mellitus with peripheral vascular disease (HCC) - ICD9: 250.70, 443.81, ICD10: E11.51 As above - COMP METABOLIC PANEL 5. Mixed hyperlipidemia - ICD9: 272.2, ICD10: E78.2 - to be determined upon return of lab results - Encouraged following a low carbohydrate, healthy oil intake diet. - Continue current therapy. - LIPID PANEL, NONFASTING 6. Essential hypertension with goal blood pressure less than 140/90 - ICD9: 401.9, ICD10: I10 - good control - Continue current medication(s) - Recommended regular aerobic exercise. - Recommend home blood pressure monitoring, to bring results in on next visit - Goal of BP <130/80 7. Essential hypertension - ICD9: 401.9, ICD10: I10 - good control - Continue current medication(s) - Recommended regular aerobic exercise. - Recommend home blood pressure monitoring, to bring results in on next visit - Goal of BP <130/80 8. Disorder of prostate - ICD9: 602.9, ICD10: N42.9 - PSA/PROSTSPECAG DIAG 9. Cardiomyopathy, ischemic - ICD9: 414.8, ICD10: I25.5 Cont with cardio 10. Coronary artery disease involving coronary bypass graft of ak chin heart without angina pectoris - ICD9: 414.05, ICD10: I25.810 Cont with cardio 11. Chronic obstructive pulmonary disease, unspecified COPD type (HCC) - ICD9: 496, ICD10: J44.9 Cont with pulm 12. Obstructive sleep apnea syndrome - ICD9: 327.23, ICD10: G47.33 Cont with pulm 13. Gastroesophageal reflux disease without esophagitis - ICD9: 530.81, ICD10: K21.9 stable 14. 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) - ICD9: 250.00, ICD10: E11.9 15. Bilateral carotid artery stenosis - ICD9: 433.10, 433.30, ICD10: I65.23 Cont with vasc 16. Diabetic eye exam (HCC) - ICD9: V72.0, 250.00, ICD10: Z01.00, E11.9 Will get most recent eye exam Follow up in 6 months for routine. sooner prn Maylin Pimentel PA-C documented in this encounter [facility] 09-21-2022 Miscellaneous Notes Spoke with Cortez and information listed below given. She will contact pt's trapeze artist for the Eliquis. Jennifer Hawthorne LPN His trapeze artist prescribes eliquis. Needs to reach out to them Other med refills were sent. Maylin Pimentel PA-C Last office visit: 07/26/2022 Next appointment scheduled 09/27/2022 Patient has been identified by name and date of : Yes Requested Prescriptions Pending Prescriptions Disp Refills amLODIPine (NORVASC) 10 mg tablet 90 tablet 1 Sig: Take 1 tablet by mouth once daily. apixaban (ELIQUIS) 5 mg tab(s) Sig: Take 1 tablet by mouth twice daily. Per Dr. Garcia fluticasone (FLONASE) 50 mcg/actuation nasal spray 3 Each 3 Si spray each nostril 1-2 times a day ramipril (ALTACE) 10 mg capsule 180 capsule 1 Sig: Take 1 capsule by mouth twice daily. atorvastatin (LIPITOR) 80 mg tablet 90 tablet 1 Sig: Take 1 tablet by mouth daily at bedtime. RX INSTRUCTIONS: Patient aware RX escripted to mail away pharmacy. No need to notify patient. Vivien Francois Pss documented in this encounter [facility] 08-31-2022 Note [facility] 08-31-2022 History of Present illness Narrative INSIGHT CDM TELEPHONIC OUTREACH Provider Action/FYI: COPD Had follow up visit with Pulmonary- will complete some additional testing. No additional concerns today Contact made with patient: Yes Patient identified by name and . Discussed care with patient It s nice talking to you again. As a reminder, this is our bi-weekly check-in where I will be asking you questions about your health. This will only take a few minutes of your time. Is this a good time? Yes Symptoms What Chronic Disease(s) does the patient have: COPD Do you check your blood pressures at home? No Do you have new or worse shortness of breath with activity? No Do you have new or worsening cough? No Do you have new or worsening wheezing? No Do you need to use your rescue (Albuterol) inhaler or nebulizer more often than normal? No Are you having any other symptoms that your PCP needs to know about? No Symptoms: none Symptom Escalation KEITH Education Ordered -: No The patient required an escalation for symptom(s)? No Medications Do you have any questions about taking your medication or which medications you should be on? No Do you need any medication refills at this time, including any of the medications you might take only when needed? No Social We would like to make sure you have what you need so that your basic needs are met- including your personal safety, food, housing, transportation and medications? Would you like to speak with a social work team cdl driver to help give you support for any of these needs? No It can be normal to feel anxious or down during a time like this. Would you like to talk to a mental health professional about how you have been feeling? No Closing Thank you for taking the time to talk with me today. We want to work with you to ensure that we are keeping your medical condition(s) well-controlled and to keep you healthy and out of the doctor's office or hospital. It s also not too late for me to sign you up for automated weekly questionnaires through [employer]. This is an easy way for us to stay connected each week. Are you interested? No, I understand. We can always sign you up in the future if you change your mind. Just as a reminder, will continue to call you every other week to check in on your health. Our calls should take 10-15 minutes or less. Remember, if you have concerns in between our calls, please call your PCP's office right away. Thank you. Enter next patient outreach date for two weeks on the same day of the week as today in the Track Pt Outreach and End outreach. documented in this encounter [facility] 08-25-2022 Note [facility] 08-25-2022 History of Present illness Narrative Scan on 08/24/2022 1:55 PM by External Provider: Consultation - Pulmonary Scan on 08/23/2022 6:21 PM by External Provider: Stress Test Please review. Corin Cardenas MA documented in this encounter [facility] 08-01-2022 Note [facility] 07-31-2022 Miscellaneous Notes Spoke with cortez and gave instructions. She voiced understanding. Corin Cardenas MA Called and left a voicemail for the Patient to call back and ask for a nurse to receive the providers message. Shae Villalta RN Should follow up with pulmonology. I will place him on atb in the meantime. ER if worsening over the weekend. Maylin Pimentel PA-C Cortez was given results & message. Cortez states she thinks pt is having more wheezing than usual, more trouble taking deep breaths. Reports pt's head is plugged up. Cortez states pt has had these symptoms for awhile but she thinks this is something different. 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 Cortez reports pt's spo2 level is 90-93%, uses o2 at hs but Cortez thinks pt should have supplemental o2 during the day as needed. Pt is up & about, he is driving at time of call. Pt has vasc surg appt 08/03/22. Angelika Schwab LPN Left message for Cortez to contact office. Corin Cardenas MA Let patient and know that xray was negative. Advised to try to make sure to take some deep breaths/coughs to help loosen the phlegm build up. Could use mucinex too. Let me know if noticing new or changing symptoms though. Maylin Pimentel PA-C documented in this encounter [facility] 07-28-2022 Note [facility] 07-28-2022 History of Present illness Narrative INSIGHT CD TELEPHONIC OUTREACH Provider Action/FYI: COPD Has vestibular testing scheduled for 08/03 Recent fall. Referral to pulmonary for increased wheezing/congestion- CXR negative-advised mucinex ,cough and deep breathing. Contact made with patient: No - Left message Vicky my name is Lopez Brown RN your Water Engineer from the [facility] I am calling today for your bi-weekly check in. I am sorry I missed your call. I will reach out to you again tomorrow. (if the third call I will reach out to you again next week) Enter next patient outreach date for the following business day using the Track Pt Outreach. End outreach. documented in this encounter [facility] 07-26-2022 Note [facility] 07-26-2022 Note [facility] 07-26-2022 History of Present illness Narrative Chief Complaint Patient presents with: ER F/U: [facility] 07/19/22 HPI Francisco Faith is a 76 year old male who presents here today for ER Follow Up.. Patient was seen in ER on 07/09/22 due to a fall. He had fallen forward onto concrete and had pain in Right lower rib cage and RUQ. Due to patient's risk factors they did do a CT abdomen to rule out laceration or hematoma of the liver and to evaluate the lower lung quinones. and the CT was negative. He was d/c home with pain medication. Since fall patient continues to have pain in lower rib cage region. He does have pain with deep breath. But no shortness of breath. +pain with cough as well. Patient states that he continues to have issues with dizziness and feelings of off balance that was discussed with myself back in february. CT brain was negative. Patient missed his appointment with vascular and is rescheduled for later this month. Discussed with cardiology who did not feel heart related. He did not rescheduled the vestibular therapy. He has also noticed new rashes in bilateral axilla. And has had some Left breast enlargement with itching. No pain. Past medical history, appointments, medications, allergies reviewed. 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 Barnett. COLD (chronic obstructive lung disease) ([facility]) 02/01/2015 Moderate: Seeing Dr. Slaughter Controlled type 2 diabetes mellitus without complication, without long-term current use of insulin ([facility]) 06/20/2016 Coronary artery disease involving coronary bypass graft of ak chin heart without angina pectoris 02/01/[address] Garcia pacemaker/defib, 3 stents and 4 vessle CABG Current use of proton pump inhibitor 03/24/2017 DDD (degenerative disc disease), lumbar 06/13/2013 Diabetic eye exam (HCC) 11/13/2016 Last done: 11/13/2016 Esophageal spasm 04/18/2017 Essential hypertension 10/02/2020 Essential hypertension with goal blood pressure less than 140/90 10/25/2015 Ex-smoker 12/10/2012 Family history of prostate cancer 12/10/2012 Gastroesophageal reflux disease without esophagitis 10/25/2015 Gynecomastia 01/22/2013 Lt side, Biopsy neg. History of cutaneous T-cell lymphoma History of CVA (cerebrovascular accident) 09/11/2013 In 2010. If tired left leg will drag slightly. ICD (implantable cardioverter-defibrillator), biventricular, in situ 09/26/2013 Lumbago 02/20/2013 Lumbar spondylosis 06/13/2013 Lung nodule < 6cm on CT 05/23/[address] chest 05/2018. Measuring up to 4mm. Repeat CT in 1 year. 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 Nocturia 12/10/2012 Obstructive sleep apnea syndrome 10/25/2015 CPAP 13 cm H2O On amiodarone therapy 01/04/2021 Per cardio< Dr. Garcia for paroxysmal A. Flutter, TV started 01/03/2021 Other malignant neoplasm of other specified sites of skin 11/02/2008 Pain in joint, shoulder region 09/22/2013 Peripheral T-cell lymphoma, pleomorphic small cell (HCC) Peripheral vascular disease, unspecified (HCC) PVD (peripheral vascular disease) ([facility]) 12/03/2012 3 stents to left leg S/P CABG x 3 09/26/2013 Seborrheic keratoses, inflamed 05/16/2017 left upper chest treated with cryo 05/16/2017 Spinal stenosis of lumbar region 02/20/2013 Stenosis of left carotid artery 04/04/2021 Type 2 diabetes mellitus with peripheral vascular disease (HCC) 12/03/2012 3 stents to left leg Urge incontinence 03/01/2016 Previous Surgical History PAST SURGICAL HISTORY Procedure Laterality Date *STRESS TEST PC 11/14/2016 Negative 2D ECHO (EXEP) 01/19/2021 EF=55%, LA mildly enlarged, 1-2+ TI, 2D ECHO COMPLETE INP 08/27/2012 EF=50%, trace MR andTR ANES PERMANENT TRANSVENOUS PACEMAKER INSERTION 03/2012 Permanent Pacemaker (revision) ARTHRP KNE CONDYLE&PLATU MEDIAL&LAT COMPARTMENTS 03/30/2020 BYP OTH/THN VEIN FEMORAL-POPLITEAL right leg 11/2012 Bypass graft fem-pop BYPASS COMPOSITE GRAFT PROSTHETIC & VEIN left leg 03/2012 Bypass graft other, composite COLONOSCOPY FLX DX W/COLLJ SPEC WHEN PFRMD 03/08/2006 Colonoscopy [facility] - no polyps COLONOSCOPY FLX DX W/COLLJ SPEC WHEN PFRMD 08/14/2000 Colonoscopy [facility]- no polyps COLONOSCOPY FLX DX W/COLLJ SPEC WHEN PFRMD 02/26/2013 Colonoscopy, no polyps, recheck 10 yrs CORONARY ARTERY BYP W/VEIN & ARTERY GRAFT 3 VEIN 05/2012 CABG, three grafts CORONARY STENT EA VESSEL 2004 Drug eluting ESOPHAGOGASTRODUODENOSCOPY TRANSORAL DIAGNOSTIC 03/08/2006 EGD [facility] PAST SURGICAL HISTORY OF Left 01/01/2020 left knee arthroscopic chondroplasty medial and patello PERMANENT PACEMAKER 2005 STRESS TEST 10/30/2017 normal stress with EF=64% Family History FAMILY HISTORY Problem Relation Age of Onset Stroke Mother 89 Heart Father 76 Prostate Cancer Father Prostate Cancer Brother Cancer Maternal Grandfather lung Patient Allergies ALLERGIES Allergen Reactions Sulfa (Sulfonamide * Unknown unknown, as a child Cipro [Ciprofloxaci* Swelling Current Medications Current Outpatient Medications on File Prior to Visit Medication Sig amLODIPine (NORVASC) 10 mg tablet Take 1 tablet by mouth once daily. metFORMIN (GLUCOPHAGE) 500 mg tablet Take 1 tablet by mouth twice daily with meals. atorvastatin (LIPITOR) 80 mg tablet Take 1 tablet by mouth daily at bedtime. ramipril (ALTACE) 10 mg capsule Take 1 capsule by mouth twice daily. isosorbide mononitrate ER (IMDUR) 30 mg 24 hr tablet Take 1 tablet by mouth twice daily. montelukast (SINGULAIR) 10 mg tablet Take 1 tablet by mouth daily at bedtime. cholecalciferol, vitamin D3, (VITAMIN D3 ORAL) Take by mouth. Benzonatate 200 mg capsule Take 1 capsule by mouth three times daily as needed. albuterol HFA (PROAIR HFA) 90 mcg/actuation inhaler Inhale 2 Puffs as instructed every 4 hours as needed for wheezing/shortness of breath. amiodarone (PACERONE) 200 mg tablet Take 1 tablet by mouth once daily. Per Cardio, Dr. Garcia carvedilol (COREG) 6.25 mg tablet Take 1 tablet by mouth twice daily with meals. fluticasone (FLONASE) 50 mcg/actuation nasal spray 1 spray each nostril 1-2 times a day apixaban (ELIQUIS) 5 mg tab(s) Take 1 tablet by mouth twice daily. Per Dr. Garcia nitroglycerin sublingual (NITROQUICK) 0.4 mg SL tablet Dissolve 1 tablet under the tongue every 5 minutes as needed for Chest Pain. SYMBICORT 160-4.5 mcg/actuation inhaler Inhale 2 Puffs as instructed twice daily. acetaminophen (TYLENOL ARTHRITIS PAIN) 650 mg CR tablet Take 2 tablets by mouth every 8 hours as needed. albuterol (PROVENTIL) 2.5 mg /3 mL (0.083 %) nebulizer solution Inhale 1 vial (3 ml) via nebulizer every 4 hours as needed for wheezing/shortness of breath. Use over 5-15 minutes COMPOUNDED PRESCRIPTION CPAP at 13 crainal nerves H2O with humidification, medium [place] Simplus full face mask without chin strap and appropriate supplies. # one device Dx: G47.33 COMPOUNDED PRESCRIPTION CPAP 13 cmH2O with humidification. A [employer] Simplus full face mask without chin strap. Dx: G47.33 No current facility-administered medications on file prior to visit. Social History Social History Tobacco Use Smoking status: Former Packs/day: 1.00 Years: 40.00 Pack years: 40.00 Types: Cigarettes Quit date: 05/23/2012 Years since quittin.1 Smokeless tobacco: Never Vaping Use Vaping Use: Never used Substance Use Topics Alcohol use: Yes Comment: wine on occasion Drug use: Not Currently Review of Symptoms REVIEW OF SYSTEMS See hpi EXAM: BP 132/70 Pulse 69 Resp 20 Wt 95.9 kg (211 lb 6.4 oz) SpO2 97% BMI 34.38 kg/m General Appearance: Well appearing, alert, in no acute distress, well-hydrated, well nourished. and Obese. Skin: erythematous plaques in b/l axilla. No drainage.. Lungs: R lung with wheezes and rhonchi noted.. Heart: RRR without murmur, gallop, or rubs. No ectopy. Breast: left breast enlarged compared to Right. Nontender. No masses noted. Chest wall: no bruising noted. Tender to palp of later lower R rib cage.. Health Maintenance List SHINGRIX VACCINE(1 of 2) Never done COVID-19 VACCINE(3 - Booster for Pfizer series) due on 04/19/2021 DILATED RETINAL EXAM due on 10/02/2021 INFLUENZA(1) due on 03/09/2022 ADVANCE DIRECTIVE DISCUSSION Never done DEPRESSION ASSESSMENT Never done DIABETIC FOOT EXAM due on 08/02/2022 HBA1C due on 08/27/2022 URINE ALBUMIN:CREATININE RATIO due on 02/24/2023 LDL CHOLESTEROL due on 02/24/2023 ANNUAL PCP TEAM CHRONIC DISEASE VISIT due on 02/24/2023 BP CONTROLLED (<130/80) due on 02/24/2023 DTAP,TDAP,TD(2 - Td or Tdap) due on 04/19/2027 HEPATITIS C SCREENING Completed PNEUMOCOCCAL: 65+ Completed SPIROMETRY Discontinued Data reviewed See HPI ASSESSMENT/PLAN: 1. Fall, initial encounter - ICD9: E888.9, ICD10: W19.XXXA (primary diagnosis) Need CXR. Concern for possible development of pneumonia. Advised patient and to notify us if developing worse symptoms - XR CHEST 2V FRONTAL/LAT 2. Costochondritis - ICD9: 733.6, ICD10: M94.0 As above - XR CHEST 2V FRONTAL/LAT 3. Wheezing - ICD9: 786.07, ICD10: R06.2 Check CXR - XR CHEST 2V FRONTAL/LAT 4. Acute cough - ICD9: 786.2, ICD10: R05.1 - XR CHEST 2V FRONTAL/LAT 5. Breast development in males - ICD9: 611.1, ICD10: N62 Set up for US / mammogram - US BREAST LTD LT - [facility] LT 6. Tinea corporis - ICD9: 110.5, ICD10: B35.4 Start nystatin powder application in b/l axilla. Follow up if not improving. 7. Encounter for immunization - ICD9: V03.89, ICD10: Z23 - INFLUENZA SEASONAL QUADRIVALENT HIGH DOSE AGE 65+ Maylin Pimentel PA-C documented in this encounter [facility] 06-27-2022 Note [facility] 06-27-2022 History of Present illness Narrative INSIGHT CDM TELEPHONIC OUTREACH Provider Action/FYI: COPD Continues to have dizziness. Patient was left # on VM to schedule for vascular to be evaluated. Patient did not have number and did not make appointment Given number to vascular [facility]. Advised patient to call after we hang up. Patient has missed 2 appointments Will follow up after new year to ensure was able to make appointment. Next steps after vascular evaluation is to consider vestibular testing. Contact made with patient: Yes Patient identified by name and . Discussed care with patient It s nice talking to you again. As a reminder, this is our bi-weekly check-in where I will be asking you questions about your health. This will only take a few minutes of your time. Is this a good time? Yes Symptoms What Chronic Disease(s) does the patient have: COPD Do you check your blood pressures at home? No Do you have new or worse shortness of breath with activity? No Do you have new or worsening cough? No Do you have new or worsening wheezing? No Do you need to use your rescue (Albuterol) inhaler or nebulizer more often than normal? No Are you having any other symptoms that your PCP needs to know about? No Symptom Escalation The patient required an escalation for symptom(s)? No Medications Do you have any questions about taking your medication or which medications you should be on? No Do you need any medication refills at this time, including any of the medications you might take only when needed? No Social We would like to make sure you have what you need so that your basic needs are met- including your personal safety, food, housing and medications? Would you like to speak with a social work team cdl driver to help give you support for any of these needs? No It can be normal to feel anxious or down during a time like this. Would you like to talk to a mental health professional about how you have been feeling? No Closing Thank you for taking the time to talk with me today. We want to work with you to ensure that we are keeping your medical condition(s) well-controlled and to keep you healthy and out of the doctor's office or hospital. It s also not too late for me to sign you up for automated weekly questionnaires through [employer]. This is an easy way for us to stay connected each week. Are you interested? No, I understand. We can always sign you up in the future if you change your mind. Just as a reminder, will continue to call you every other week to check in on your health. Our calls should take 10-15 minutes or less. Remember, if you have concerns in between our calls, please call your PCP's office right away. Thank you. Enter next patient outreach date for two weeks on the same day of the week as today in the Track Pt Outreach and End outreach. documented in this encounter [facility] 05-25-2022 History of Present illness Narrative POPULATION HEALTH NAVIGATION OUTREACH Action/FYI May 25, 2022 Called and spoke with patient. Provided number to patient with phone number to Vascular Surgery to reschedule his appointment. It was not allowing me to reschedule cancelled appointments for patient. Thank you Pt identified by name and : YES, via phone Outreach Outcome/Action Spoke to patient or caregiver: Patient will return the call or ask for return call Did you use a PCP flex slot to schedule this appointment? N/A Reason for Outreach Community Monitoring Pool Payer: Payor: MEDICARE / Plan: MEDICARE A AND B / Product Type: Medicare / Care Gap Reviewed:: Follow-up appointment Reminder: Reminder note to check Health Maintenance for items below Health Maintenance items due: SHINGRIX VACCINE(1 of 2) Never done COVID-19 VACCINE(3 - Booster for Pfizer series) due on 04/19/2021 ADVANCE DIRECTIVE DISCUSSION Never done DEPRESSION ASSESSMENT Never done DILATED RETINAL EXAM due on 10/02/2021 INFLUENZA(1) due on 03/09/2022 Message Sent to Practice: No Navigation Signature: Tiffanie Andrade MA May 25, 2022 3:14 PM INSIGHT CDM TELEPHONIC OUTREACH Provider Action/FYI: COPD Vascular follow up 05/23? Missed appointment Also missed appointment with PT for vestibular testing History of fall/dizziness Patient states he lives alone and forgot. Thought they would call him. Advised to place on refrigerator or somewhere he would see as a visual reminder. Will ask PSS pool to assist with rescheduling. Contact made with patient: Yes Patient identified by name and . Discussed care with patient It s nice talking to you again. As a reminder, this is our bi-weekly check-in where I will be asking you questions about your health. This will only take a few minutes of your time. Is this a good time? Yes Symptoms What Chronic Disease(s) does the patient have: COPD Do you check your blood pressures at home? No Do you have new or worse shortness of breath with activity? No Do you have new or worsening cough? No Do you have new or worsening wheezing? No Do you need to use your rescue (Albuterol) inhaler or nebulizer more often than normal? No Are you having any other symptoms that your PCP needs to know about? No Symptom Escalation The patient required an escalation for symptom(s)? No Medications Do you have any questions about taking your medication or which medications you should be on? No Do you need any medication refills at this time, including any of the medications you might take only when needed? No Social We would like to make sure you have what you need so that your basic needs are met- including your personal safety, food, housing and medications? Would you like to speak with a social work team cdl driver to help give you support for any of these needs? No It can be normal to feel anxious or down during a time like this. Would you like to talk to a mental health professional about how you have been feeling? No Closing Thank you for taking the time to talk with me today. We want to work with you to ensure that we are keeping your medical condition(s) well-controlled and to keep you healthy and out of the doctor's office or hospital. It s also not too late for me to sign you up for automated weekly questionnaires through [employer]. This is an easy way for us to stay connected each week. Are you interested? No, I understand. We can always sign you up in the future if you change your mind. Just as a reminder, will continue to call you every other week to check in on your health. Our calls should take 10-15 minutes or less. Remember, if you have concerns in between our calls, please call your PCP's office right away. Thank you. Enter next patient outreach date for two weeks on the same day of the week as today in the Track Pt Outreach and End outreach. [facility] TELEPHONIC OUTREACH Provider Action/FYI: Contact made with patient: No - Left message Cabrerayael my name is Lopez Brown RN your Water Engineer from the [facility] I am calling today for your bi-weekly check in. I am sorry I missed your call. I will reach out to you again tomorrow. (if the third call I will reach out to you again next week) Enter next patient outreach date for the following business day using the Track Pt Outreach. End outreach. documented in this encounter [facility] 03-28-2022 History of Present illness Narrative [facility] TELEPHONIC OUTREACH Provider Action/FYI: Contact made with patient: No - Left message Vicky my name is Giselle Cortez RN your Water Engineer from the [facility] I am calling today for your monthly check in. I am sorry I missed your call. I will reach out to you again next month. (if the third call I will reach out to you again next week) Enter next patient outreach date for the following business day using the Track Pt Outreach. End outreach. documented in this encounter [facility] 03-01-2022 Miscellaneous Notes Pt called and notified of message below, verbalized understanding. Melissa Fenton Ma Noted. These are slightly higher than we like. But I just wanted to make sure he wasn't still having low BP like he had while in office. He should just keep follow up in March. No need to notify me with additional readings unless they go over 180/100 or lower than 100/50. Thanks. Maylin Pimentel PA-C Call to pt to get home blood pressure readings. Pt states he only has a couple of days readings. Readings from and Sun are 143/82 and 146/77. He could not locate reading from Mon at this time. He will continue to keep track of readings. Jameel Marquez LPN documented in this encounter [facility] 02-27-2022 History of Present illness Narrative Radiology Service Progress Note PATIENT NAME: Francisco Faith DATE OF SERVICE: February 27, 2022 TIME: 1:18 PM PATIENT IDENTITY VERIFICATION COMPLETED USING TWO (2) IDENTIFIERS: Name and Date of confirmed by patient verbally. FALL SCREENING: Has the patient had 2 falls in the last year or 1 fall with injury or currently using an Ambulatory Assistive Device (Walker, Cane, Wheelchair, Crutches, etc.)? 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 Patient has CT scan today. Patient had no questions, concerns, needs at this time. Contact made with patient: Yes Patient identified by name and . Discussed care with patient It s nice talking to you again. As a reminder, this is our bi-weekly check-in where I will be asking you questions about your health. This will only take a few minutes of your time. Is this a good time? Yes Symptoms What Chronic Disease(s) does the patient have: COPD Do you check your blood pressures at home? Yes, Enter readings: see fyi Do you have new or worse shortness of breath with activity? No Do you have new or worsening cough? No Do you have new or worsening wheezing? No Do you need to use your rescue (Albuterol) inhaler or nebulizer more often than normal? No Are you having any other symptoms that your PCP needs to know about? No Symptom Escalation The patient required an escalation for symptom(s)? No Medications Do you have any questions about taking your medication or which medications you should be on? No Do you need any medication refills at this time, including any of the medications you might take only when needed? No Social We would like to make sure you have what you need so that your basic needs are met- including your personal safety, food, housing and medications? Would you like to speak with a social work team cdl driver to help give you support for any of these needs? No It can be normal to feel anxious or down during a time like this. Would you like to talk to a mental health professional about how you have been feeling? No Closing Thank you for taking the time to talk with me today. We want to work with you to ensure that we are keeping your medical condition(s) well-controlled and to keep you healthy and out of the doctor's office or hospital. It s also not too late for me to sign you up for automated weekly questionnaires through [employer]. This is an easy way for us to stay connected each week. Are you interested? No, I understand. We can always sign you up in the future if you change your mind. Just as a reminder, will continue to call you every other week to check in on your health. Our calls should take 10-15 minutes or less. Remember, if you have concerns in between our calls, please call your PCP's office right away. Thank you. Enter next patient outreach date for two weeks on the same day of the week as today in the Track Pt Outreach and End outreach. documented in this encounter [facility] 02-14-2022 Miscellaneous Notes Please assist pt in rescheduling the appointment that he no showed. Thank you. Jameel Marquez LPN Patient no showed his visit. Needs rescheduled. Last office visit: 09/06/21 F/u scheduled: none 90 day supply sent to [facility] on 01/17/22. Giselle Devlin Ma Patient has been identified by name and date of : Yes Requested Prescriptions Pending Prescriptions Disp Refills isosorbide mononitrate ER (IMDUR) 30 mg 24 hr tablet 20 tablet 0 Sig: Take 1 tablet by mouth twice daily. isosorbide mononitrate ER (IMDUR) 30 mg 24 hr tablet 180 tablet 3 Sig: Take 1 tablet by mouth twice daily. RX INSTRUCTIONS: Patient aware RX will be sent to pharmacy. No need to notify patient. NOTE: patient needs the short term to [facility] in [place] and the 3 month to go to [facility] in chart [facility] documented in this encounter [facility] 01-17-2022 Miscellaneous Notes The following approved medication requests have been transmitted electronically. Signed Prescriptions Disp Refills isosorbide mononitrate ER (IMDUR) 30 mg 24 hr tablet 180 tablet 3 Sig: Take 1 tablet by mouth twice daily. SINAN: No Authorizing Provider: FITO CHAVEZ isosorbide mononitrate ER (IMDUR) 30 mg 24 hr tablet 20 tablet 0 Sig: Take 1 tablet by mouth twice daily. SINAN: No Authorizing Provider: FITO CHAVEZ MD Last office visit: 09/06/21 F/u scheduled: 02/07/22 Giselle Devlin Ma Patient has been identified by name and date of : Yes Pending Prescriptions Disp Refills ISOSORBIDE MONONITRATE ER 30 MG TABLET,EXTENDED RELEASE 24 HR 180 tablet 3 Sig: Take 1 tablet by mouth twice daily. SINAN: No ISOSORBIDE MONONITRATE ER 30 MG TABLET,EXTENDED RELEASE 24 HR 20 tablet 0 Sig: Take 1 tablet by mouth twice daily. SINAN: No RX INSTRUCTIONS: Patient needs [address] [facility] [place]; I made a copy and attached to correct pharmacy; attached long-term to correct Pharmacy. Please send today out of medication. Patient aware RX will be sent to pharmacy. No need to notify patient. Patient aware RX escripted to mail away pharmacy. No need to notify patient. Kori Ellis documented in this encounter [facility] 01-02-2022 History of Present illness Narrative [facility] TELEPHONIC OUTREACH Provider Action/FYI: Patient reports he is doing good, had carotid aretery US completed today at [facility], ordered by cardiology. Patient states cardiology discontinued amlodipine 10 mg 4-5 days ago. Patient had no questions, concerns, needs at this time. Contact made with patient: Yes Patient identified by name and . Discussed care with patient It s nice talking to you again. As a reminder, this is our bi-weekly check-in where I will be asking you questions about your health. This will only take a few minutes of your time. Is this a good time? Yes Symptoms What Chronic Disease(s) does the patient have: COPD Do you check your blood pressures at home? Yes, Enter readings: no issues Do you have new or worse shortness of breath with activity? No Do you have new or worsening cough? No Do you have new or worsening wheezing? No Do you need to use your rescue (Albuterol) inhaler or nebulizer more often than normal? No Are you having any other symptoms that your PCP needs to know about? No Symptom Escalation The patient required an escalation for symptom(s)? No Medications Do you have any questions about taking your medication or which medications you should be on? No Do you need any medication refills at this time, including any of the medications you might take only when needed? No Social We would like to make sure you have what you need so that your basic needs are met- including your personal safety, food, housing and medications? Would you like to speak with a social work team cdl driver to help give you support for any of these needs? No It can be normal to feel anxious or down during a time like this. Would you like to talk to a mental health professional about how you have been feeling? No Closing Thank you for taking the time to talk with me today. We want to work with you to ensure that we are keeping your medical condition(s) well-controlled and to keep you healthy and out of the doctor's office or hospital. It s also not too late for me to sign you up for automated weekly questionnaires through [employer]. This is an easy way for us to stay connected each week. Are you interested? No, I understand. We can always sign you up in the future if you change your mind. Just as a reminder, will continue to call you every other week to check in on your health. Our calls should take 10-15 minutes or less. Remember, if you have concerns in between our calls, please call your PCP's office right away. Thank you. Enter next patient outreach date for two weeks on the same day of the week as today in the Track Pt Outreach and End outreach. 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 Contact made with patient: Yes Patient identified by name and . Discussed care with patient It s nice talking to you again. As a reminder, this is our bi-weekly check-in where I will be asking you questions about your health. This will only take a few minutes of your time. Is this a good time? Yes Symptoms What Chronic Disease(s) does the patient have: COPD Do you check your blood pressures at home? Yes, Enter readings: Doing good, no issues Do you have new or worse shortness of breath with activity? No Do you have new or worsening cough? No Do you have new or worsening wheezing? No Do you need to use your rescue (Albuterol) inhaler or nebulizer more often than normal? No Are you having any other symptoms that your PCP needs to know about? No Symptom Escalation The patient required an escalation for symptom(s)? No Medications Do you have any questions about taking your medication or which medications you should be on? No Do you need any medication refills at this time, including any of the medications you might take only when needed? No Social We would like to make sure you have what you need so that your basic needs are met- including your personal safety, food, housing and medications? Would you like to speak with a social work team cdl driver to help give you support for any of these needs? No It can be normal to feel anxious or down during a time like this. Would you like to talk to a mental health professional about how you have been feeling? No Closing Thank you for taking the time to talk with me today. We want to work with you to ensure that we are keeping your medical condition(s) well-controlled and to keep you healthy and out of the doctor's office or hospital. It s also not too late for me to sign you up for automated weekly questionnaires through [employer]. This is an easy way for us to stay connected each week. Are you interested? No, I understand. We can always sign you up in the future if you change your mind. Just as a reminder, will continue to call you every other week to check in on your health. Our calls should take 10-15 minutes or less. Remember, if you have concerns in between our calls, please call your PCP's office right away. Thank you. Enter next patient outreach date for two weeks on the same day of the week as today in the Track Pt Outreach and End outreach. documented in this encounter [facility] 12-09-2021 History of Present illness Narrative INSIGHT CDM TELEPHONIC OUTREACH Provider Action/FYI: Contact made with patient: No - Left message Vicky my name is Giselle Cortez RN your Water Engineer from the [facility] I am calling today for your bi-weekly check in. I am sorry I missed your call. I will reach out to you again tomorrow. (if the third call I will reach out to you again next week) Enter next patient outreach date for the following business day using the Track Pt Outreach. End outreach. documented in this encounter [facility] 10-27-2021 History of Present illness Narrative [facility] TELEPHONIC OUTREACH Provider Action/FYI: Pt reports he is doing good, blood pressure has been good , no issues. Pt had no questions/concerns/needs at this time. Contact made with patient: Yes Patient identified by name and . Discussed care with patient It s nice talking to you again. As a reminder, this is our bi-weekly check-in where I will be asking you questions about your health. This will only take a few minutes of your time. Is this a good time? Yes Symptoms What Chronic Disease(s) does the patient have: COPD Do you check your blood pressures at home? Yes, Enter readings: see fyi Do you have new or worse shortness of breath with activity? No Do you have new or worsening cough? No Do you have new or worsening wheezing? No Do you need to use your rescue (Albuterol) inhaler or nebulizer more often than normal? No Are you having any other symptoms that your PCP needs to know about? No Symptom Escalation The patient required an escalation for symptom(s)? No Medications Do you have any questions about taking your medication or which medications you should be on? No Do you need any medication refills at this time, including any of the medications you might take only when needed? No Social We would like to make sure you have what you need so that your basic needs are met- including your personal safety, food, housing and medications? Would you like to speak with a social work team cdl driver to help give you support for any of these needs? No It can be normal to feel anxious or down during a time like this. Would you like to talk to a mental health professional about how you have been feeling? No Closing Thank you for taking the time to talk with me today. We want to work with you to ensure that we are keeping your medical condition(s) well-controlled and to keep you healthy and out of the doctor's office or hospital. It s also not too late for me to sign you up for automated weekly questionnaires through [employer]. This is an easy way for us to stay connected each week. Are you interested? No, I understand. We can always sign you up in the future if you change your mind. Just as a reminder, will continue to call you every other week to check in on your health. Our calls should take 10-15 minutes or less. Remember, if you have concerns in between our calls, please call your PCP's office right away. Thank you. Enter next patient outreach date for two weeks on the same day of the week as today in the Track Pt Outreach and End outreach. documented in this encounter [facility] 10-14-2021 Miscellaneous Notes Last refill Norvasc 08/20/20 Qty: 90 with 1 refill Last refill Singular 03/10/21 Qty: 90 with 1 refill Pt has appt 02/07/22 Jameel Marquez LPN Patient has been identified by name and date of : Yes Pending Prescriptions Disp Refills MONTELUKAST 10 MG TABLET 90 tablet 1 Sig: Take 1 tablet by mouth daily at bedtime. SINAN: No AMLODIPINE 10 MG TABLET 90 tablet 1 Sig: Take 1 tablet by mouth once daily. SINAN: No RX INSTRUCTIONS: Patient aware RX escripted to mail away pharmacy. No need to notify patient. Vivien Francois Pss documented in this encounter [facility] 09-30-2021 History of Present illness Narrative INSIGHT CDM TELEPHONIC OUTREACH Provider Action/FYI: Pt reports he is doing good, states BP has been good, no high readings . Pt has follow up appt at [facility] 10/15/21 Pt had no questions/concerns/needs at this time. Contact made with patient: Yes Patient identified by name and . Discussed care with patient It s nice talking to you again. As a reminder, this is our bi-weekly check-in where I will be asking you questions about your health. This will only take a few minutes of your time. Is this a good time? Yes Symptoms What Chronic Disease(s) does the patient have: COPD Do you check your blood pressures at home? Yes, Enter readings: see fyi Do you have new or worse shortness of breath with activity? No Do you have new or worsening cough? No Do you have new or worsening wheezing? No Do you need to use your rescue (Albuterol) inhaler or nebulizer more often than normal? No Are you having any other symptoms that your PCP needs to know about? No Symptom Escalation The patient required an escalation for symptom(s)? No Medications Do you have any questions about taking your medication or which medications you should be on? No Do you need any medication refills at this time, including any of the medications you might take only when needed? No Social We would like to make sure you have what you need so that your basic needs are met- including your personal safety, food, housing and medications? Would you like to speak with a social work team cdl driver to help give you support for any of these needs? No It can be normal to feel anxious or down during a time like this. Would you like to talk to a mental health professional about how you have been feeling? No Closing Thank you for taking the time to talk with me today. We want to work with you to ensure that we are keeping your medical condition(s) well-controlled and to keep you healthy and out of the doctor's office or hospital. It s also not too late for me to sign you up for automated weekly questionnaires through [employer]. This is an easy way for us to stay connected each week. Are you interested? No, I understand. We can always sign you up in the future if you change your mind. Just as a reminder, will continue to call you every other week to check in on your health. Our calls should take 10-15 minutes or less. Remember, if you have concerns in between our calls, please call your PCP's office right away. Thank you. Enter next patient outreach date for two weeks on the same day of the week as today in the Track Pt Outreach and End outreach. documented in this encounter [facility] 12-16-2020 Note Post Operative Note: Post-Procedure Diagnosis: 1. 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 Regular Astigmatism Right Eye Procedure: 1. Cataract Extraction with Toric Intraocular Lens Implant Right Eye Surgeon: Andre Roque MD Resident/Fellow/Other Sessions Clerk: None Estimated Blood Loss (mL): none Specimen: no Findings: 1. 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 Regular Astigmatism Right Eye Operative Report Dictated: Dictation: not applicable - note contains Operative Report Operative Report: The patient was correctly identified in the pre-operative area and the operative eye was marked. The operative eye was dilated in the pre-op area. Under the slit lamp the operative eye was marked using a fine marking pen at 3 o'clock, 6 o'clock and 9 o'clock at the limbus. The patient was taken to the operating room and time out was performed prior to starting the procedure. Combined anesthesia with IV sedation and topical tetracaine eye drops was given. The operative eye was prepped and draped in the standard sterile ophthalmic fashion in preparation for the ophthalmic surgery. A Camille wire speculum was then placed between the eyelids and the operative microscope was placed over the operative eye. The corrected axis of the Toric Intraocular lens was marked with the help of a marking pen before the start of the procedure. A paracentesis incision was made approximately 30 degrees from the planned surgical incision site with the help of the MVR blade. 1% Lidocaine MPF with Phenylephrine 1.5% PF was injected into the anterior chamber through the paracentesis incision. A near limbal clear corneal incision was fashioned in the temporal quadrant just outside the vascular arcade and viscoat was injected into the anterior chamber to firm the eye. A bent needle cystotome and Utrata forceps were used to create a continuous curvilinear capsulorrhexis. BSS was injected beneath the anterior capsule to hydrodissect the nucleus free form the adjacent cortex and capsule. The nucleus of the cataractous lens was removed with the phacoemulsification instrument. The residual cortex was aspirated with the irrigation/aspiration handpiece. The posterior capsule was then polished with the help of soft irrigation/aspiration tip. Provisc viscoelastic was then injected into the eye to form the anterior chamber and to open the capsular bag. Toric intraocular lens implant was taken from the sterile wrapping, inspected under the surgical microscope and found to be in good condition. The toric intraocular lens implant 21.5D T4 was injected into the capsular bag and rotated to its desired axis of 180. The viscoeclastic material was aspirated from the anterior chamber and from behind the lens optics. The anterior chamber was inflated with the help of BSS to moderate tension and the edges of the surgical incision were hydrated with BSS. Vigamox was injected into the anterior chamber and into the capsular bag through the paracentesis incision. The surgical incision was inspected and found to be water tight. The wire speculum and drapes were removed. Pred Forte eye drops, Acular eye drops and Betadine 5% sterile ophthalmic was instilled into the conjunctival sac. The patient tolerated the procedure well and was taken to the recovery room in stable condition. Signature/Cosignature/Attestation: Note Completion: Attending AttestationI performed the procedure without a resident Electronic Signatures: Andre Roque) (Signed 16-Dec-2020 12:49) Authored: Post Operative Note, Note Completion Last Updated: 16-Dec-2020 12:49 by Andre Roqeu) [facility] 12-16-2020 Note History & Physical R eviewed: I have reviewed the History and Physical dated: 07-Dec-2020 History and Physical reviewed and relevant findings noted. Patient examined to review pertinent physical findings.: No significant changes Home Medications Reviewed: no changes noted Allergies Reviewed: no changes noted ERAS (Enhanced Recovery After Surgery): ERAS Patient: no Consent: COVID-19 Consent: COVID-19 Risk ConsentSurgeon has reviewed carrillo risks related to the risk of darian COVID-19 and if they contract COVID-19 what the risks are. Signatures/Attestation: Note Completion: Attending Provider Inpatient Certification StatementObservation patient/other outpatient visits Electronic Signatures: Andre Roque) (Signed 16-Dec-2020 11:11) Authored: History & Physical Reviewed, ERAS, Consent, Note Completion Last Updated: 16-Dec-2020 11:11 by Andre Roque) [facility] 11-25-2020 Note Post Operative Note: Post-Procedure Diagnosis: 1. 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 Regular Astigmatism Left Eye Procedure: 1. Cataract Extraction with Toric Intraocular Lens Implant Left Eye Surgeon: Andre Roque MD Resident/Fellow/Other Sessions Clerk: None Estimated Blood Loss (mL): none Specimen: no Findings: 1. 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 Regular Astigmatism Left Eye Operative Report Dictated: Dictation: not applicable - note contains Operative Report Operative Report: The patient was correctly identified in the pre-operative area and the operative eye was marked. The operative eye was dilated in the pre-op area. Under the slit lamp the operative eye was marked using a fine marking pen at 3 o'clock, 6 o'clock and 9 o'clock at the limbus. The patient was taken to the operating room and time out was performed prior to starting the procedure. Combined anesthesia with IV sedation and topical tetracaine eye drops was given. The operative eye was prepped and draped in the standard sterile ophthalmic fashion in preparation for the ophthalmic surgery. A Camille wire speculum was then placed between the eyelids and the operative microscope was placed over the operative eye. The corrected axis of the Toric Intraocular lens was marked with the help of a marking pen before the start of the procedure. A paracentesis incision was made approximately 30 degrees from the planned surgical incision site with the help of the MVR blade. 1% Lidocaine MPF with Phenylephrine 1.5% PF was injected into the anterior chamber through the paracentesis incision. A near limbal clear corneal incision was fashioned in the temporal quadrant just outside the vascular arcade and viscoat was injected into the anterior chamber to firm the eye. A bent needle cystotome and Utrata forceps were used to create a continuous curvilinear capsulorrhexis. BSS was injected beneath the anterior capsule to hydrodissect the nucleus free form the adjacent cortex and capsule. The nucleus of the cataractous lens was removed with the phacoemulsification instrument. The residual cortex was aspirated with the irrigation/aspiration handpiece. The posterior capsule was then polished with the help of soft irrigation/aspiration tip. Provisc viscoelastic was then injected into the eye to form the anterior chamber and to open the capsular bag. Toric intraocular lens implant was taken from the sterile wrapping, inspected under the surgical microscope and found to be in good condition. The toric intraocular lens implant 21.5D T4 was injected into the capsular bag and rotated to its desired axis of 170. The viscoeclastic material was aspirated from the anterior chamber and from behind the lens optics. The anterior chamber was inflated with the help of BSS to moderate tension and the edges of the surgical incision were hydrated with BSS. Vigamox was injected into the anterior chamber and into the capsular bag through the paracentesis incision. The surgical incision was inspected and found to be water tight. The wire speculum and drapes were removed. Pred Forte eye drops, Acular eye drops and Betadine 5% sterile ophthalmic was instilled into the conjunctival sac. The patient tolerated the procedure well and was taken to the recovery room in stable condition.. Signature/Cosignature/Attestation: Note Completion: Attending AttestationI performed the procedure without a resident Electronic Signatures: Andre Roque) (Signed 25-Nov-2020 08:52) Authored: Post Operative Note, Note Completion Last Updated: 25-Nov-2020 08:52 by Andre Roque) [facility] 11-25-2020 Note History & Physical R eviewed: I have reviewed the History and Physical dated: 22-Nov-2020 History and Physical reviewed and relevant findings noted. Patient examined to review pertinent physical findings.: No significant changes Home Medications Reviewed: no changes noted Allergies Reviewed: no changes noted ERAS (Enhanced Recovery After Surgery): ERAS Patient: no Consent: COVID-19 Consent: COVID-19 Risk ConsentSurgeon has reviewed carrillo risks related to the risk of darian COVID-19 and if they contract COVID-19 what the risks are. Signatures/Attestation: Note Completion: Attending Provider Inpatient Certification StatementObservation patient/other outpatient visits Electronic Signatures: Andre Roque) (Signed 25-Nov-2020 07:22) Authored: History & Physical Reviewed, ERAS, Consent, Note Completion Last Updated: 25-Nov-2020 07:22 by Andre Roque) [facility] documented as of this encounter (statuses as of 09/30/2021) [facility] History of Past illness Narrative* Problem Noted Date Resolved Date 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 11/08/2020 12/07/2020 Regular astigmatism of left eye 10/27/2020 12/07/2020 Colon cancer screening 09/15/2014 0 Well adult exam 05/19/2014 07/17/2019 Overview: Last done 06/03/2019 documented as of this encounter (statuses as of 10/14/2021) [facility] History of Past illness Narrative* Problem Noted Date Resolved Date 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 11/08/2020 12/07/2020 Regular astigmatism of left eye 10/27/2020 12/07/2020 Colon cancer screening 09/15/2014 0 Well adult exam 05/19/2014 07/17/2019 Overview: Last done 06/03/2019 documented as of this encounter (statuses as of 10/27/2021) [facility] History of Past illness Narrative* Problem Noted Date Resolved Date 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 11/08/2020 12/07/2020 Regular astigmatism of left eye 10/27/2020 12/07/2020 Colon cancer screening 09/15/2014 0 Well adult exam 05/19/2014 07/17/2019 Overview: Last done 06/03/2019 documented as of this encounter (statuses as of 12/09/2021) [facility] History of Past illness Narrative* Problem Noted Date Resolved Date 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 11/08/2020 12/07/2020 Regular astigmatism of left eye 10/27/2020 12/07/2020 Colon cancer screening 09/15/2014 0 Well adult exam 05/19/2014 07/17/2019 Overview: Last done 06/03/2019 documented as of this encounter (statuses as of 12/12/2021) [facility] History of Past illness Narrative* Problem Noted Date Resolved Date 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 11/08/2020 12/07/2020 Regular astigmatism of left eye 10/27/2020 12/07/2020 Colon cancer screening 09/15/2014 0 Well adult exam 05/19/2014 07/17/2019 Overview: Last done 06/03/2019 documented as of this encounter (statuses as of 01/02/2022) [facility] History of Past illness Narrative* Problem Noted Date Resolved Date 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 11/08/2020 12/07/2020 Regular astigmatism of left eye 10/27/2020 12/07/2020 Colon cancer screening 09/15/2014 0 Well adult exam 05/19/2014 07/17/2019 Overview: Last done 06/03/2019 documented as of this encounter (statuses as of 01/18/2022) [facility] History of Past illness Narrative* Problem Noted Date Resolved Date 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 11/08/2020 12/07/2020 Regular astigmatism of left eye 10/27/2020 12/07/2020 Colon cancer screening 09/15/2014 0 Well adult exam 05/19/2014 07/17/2019 Overview: Last done 06/03/2019 documented as of this encounter (statuses as of 01/27/2022) [facility] History of Past illness Narrative* Problem Noted Date Resolved Date 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 11/08/2020 12/07/2020 Regular astigmatism of left eye 10/27/2020 12/07/2020 Colon cancer screening 09/15/2014 0 Well adult exam 05/19/2014 07/17/2019 Overview: Last done 06/03/2019 documented as of this encounter (statuses as of 02/14/2022) [facility] History of Past illness Narrative* Problem Noted Date Resolved Date 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 11/08/2020 12/07/2020 Regular astigmatism of left eye 10/27/2020 12/07/2020 Colon cancer screening 09/15/2014 0 Well adult exam 05/19/2014 07/17/2019 Overview: Last done 06/03/2019 documented as of this encounter (statuses as of 02/27/2022) [facility] History of Past illness Narrative* Problem Noted Date Resolved Date 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 11/08/2020 12/07/2020 Regular astigmatism of left eye 10/27/2020 12/07/2020 Colon cancer screening 09/15/2014 0 Well adult exam 05/19/2014 07/17/2019 Overview: Last done 06/03/2019 documented as of this encounter (statuses as of 02/28/2022) [facility] History of Past illness Narrative* Problem Noted Date Resolved Date 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 11/08/2020 12/07/2020 Regular astigmatism of left eye 10/27/2020 12/07/2020 Colon cancer screening 09/15/2014 0 Well adult exam 05/19/2014 07/17/2019 Overview: Last done 06/03/2019 documented as of this encounter (statuses as of 03/01/2022) [facility] History of Past illness Narrative* Problem Noted Date Resolved Date 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 11/08/2020 12/07/2020 Regular astigmatism of left eye 10/27/2020 12/07/2020 Colon cancer screening 09/15/2014 0 Well adult exam 05/19/2014 07/17/2019 Overview: Last done 06/03/2019 documented as of this encounter (statuses as of 03/28/2022) [facility] History of Past illness Narrative* Problem Noted Date Resolved Date 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 11/08/2020 12/07/2020 Regular astigmatism of left eye 10/27/2020 12/07/2020 Colon cancer screening 09/15/2014 0 Well adult exam 05/19/2014 07/17/2019 Overview: Last done 06/03/2019 documented as of this encounter (statuses as of 05/25/2022) [facility] History of Past illness Narrative* Problem Noted Date Resolved Date 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 11/08/2020 12/07/2020 Regular astigmatism of left eye 10/27/2020 12/07/2020 Colon cancer screening 09/15/2014 0 Well adult exam 05/19/2014 07/17/2019 Overview: Last done 06/03/2019 documented as of this encounter (statuses as of 06/27/2022) [facility] History of Past illness Narrative* Problem Noted Date Resolved Date 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 11/08/2020 12/07/2020 Regular astigmatism of left eye 10/27/2020 12/07/2020 Colon cancer screening 09/15/2014 0 Well adult exam 05/19/2014 07/17/2019 Overview: Last done 06/03/2019 documented as of this encounter (statuses as of 07/26/2022) [facility] History of Past illness Narrative* Problem Noted Date Resolved Date 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 11/08/2020 12/07/2020 Regular astigmatism of left eye 10/27/2020 12/07/2020 Colon cancer screening 09/15/2014 0 Well adult exam 05/19/2014 07/17/2019 Overview: Last done 06/03/2019 documented as of this encounter (statuses as of 07/31/2022) [facility] History of Past illness Narrative* Problem Noted Date Resolved Date 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 11/08/2020 12/07/2020 Regular astigmatism of left eye 10/27/2020 12/07/2020 Colon cancer screening 09/15/2014 0 Well adult exam 05/19/2014 07/17/2019 Overview: Last done 06/03/2019 documented as of this encounter (statuses as of 08/25/2022) [facility] History of Past illness Narrative* Problem Noted Date Resolved Date 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 11/08/2020 12/07/2020 Regular astigmatism of left eye 10/27/2020 12/07/2020 Colon cancer screening 09/15/2014 0 Well adult exam 05/19/2014 07/17/2019 Overview: Last done 06/03/2019 documented as of this encounter (statuses as of 09/01/2022) [facility] History of Past illness Narrative* Problem Noted Date Resolved Date 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 11/08/2020 12/07/2020 Regular astigmatism of left eye 10/27/2020 12/07/2020 Colon cancer screening 09/15/2014 0 Well adult exam 05/19/2014 07/17/2019 Overview: Last done 06/03/2019 documented as of this encounter (statuses as of 09/13/2022) [facility] History of Past illness Narrative* Problem Noted Date Resolved Date 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 11/08/2020 12/07/2020 Regular astigmatism of left eye 10/27/2020 12/07/2020 Colon cancer screening 09/15/2014 0 Well adult exam 05/19/2014 07/17/2019 Overview: Last done 06/03/2019 documented as of this encounter (statuses as of 09/21/2022) [facility] History of Past illness Narrative* Problem Noted Date Resolved Date 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 11/08/2020 12/07/2020 Regular astigmatism of left eye 10/27/2020 12/07/2020 Colon cancer screening 09/15/2014 0 Well adult exam 05/19/2014 07/17/2019 Overview: Last done 06/03/2019 documented as of this encounter (statuses as of 09/27/2022) [facility] History of Past illness Narrative* Problem Noted Date Resolved Date 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 11/08/2020 12/07/2020 Regular astigmatism of left eye 10/27/2020 12/07/2020 Colon cancer screening 09/15/2014 0 Well adult exam 05/19/2014 07/17/2019 Overview: Last done 06/03/2019 documented as of this encounter (statuses as of 09/28/2022) [facility] History of Past illness Narrative* Problem Noted Date Resolved Date 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 11/08/2020 12/07/2020 Regular astigmatism of left eye 10/27/2020 12/07/2020 Colon cancer screening 09/15/2014 0 Well adult exam 05/19/2014 07/17/2019 Overview: Last done 06/03/2019 documented as of this encounter (statuses as of 09/30/2022) [facility] History of Past illness Narrative* Problem Noted Date Resolved Date 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 11/08/2020 12/07/2020 Regular astigmatism of left eye 10/27/2020 12/07/2020 Colon cancer screening 09/15/2014 0 Well adult exam 05/19/2014 07/17/2019 Overview: Last done 06/03/2019 documented as of this encounter (statuses as of 10/03/2022) [facility] History of Past illness Narrative* Problem Noted Date Resolved Date 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 11/08/2020 12/07/2020 Regular astigmatism of left eye 10/27/2020 12/07/2020 Colon cancer screening 09/15/2014 0 Well adult exam 05/19/2014 07/17/2019 Overview: Last done 06/03/2019 documented as of this encounter (statuses as of 10/17/2022) [facility] History of Past illness Narrative* Problem Noted Date Resolved Date 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 11/08/2020 12/07/2020 Regular astigmatism of left eye 10/27/2020 12/07/2020 Colon cancer screening 09/15/2014 0 Well adult exam 05/19/2014 07/17/2019 Overview: Last done 06/03/2019 documented as of this encounter (statuses as of 10/23/2022) [facility] History of Past illness Narrative* Problem Noted Date Resolved Date 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 11/08/2020 12/07/2020 Regular astigmatism of left eye 10/27/2020 12/07/2020 Colon cancer screening 09/15/2014 0 Well adult exam 05/19/2014 07/17/2019 Overview: Last done 06/03/2019 documented as of this encounter (statuses as of 10/26/2022) [facility] History of Past illness Narrative* Problem Noted Date Resolved Date 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 11/08/2020 12/07/2020 Regular astigmatism of left eye 10/27/2020 12/07/2020 Colon cancer screening 09/15/2014 0 Well adult exam 05/19/2014 07/17/2019 Overview: Last done 06/03/2019 documented as of this encounter (statuses as of 11/02/2022) [facility] of Past illness Narrative* Problem Noted Date Resolved Date 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 11/08/2020 12/07/2020 Regular astigmatism of left eye 10/27/2020 12/07/2020 Colon cancer screening 09/15/2014 0 Well adult exam 05/19/2014 07/17/2019 Overview: Last done 06/03/2019 documented as of this encounter (statuses as of 11/03/2022) [facility] of Past illness Narrative* Problem Noted Date Resolved Date 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 11/08/2020 12/07/2020 Regular astigmatism of left eye 10/27/2020 12/07/2020 Colon cancer screening 09/15/2014 0 Well adult exam 05/19/2014 07/17/2019 Overview: Last done 06/03/2019 documented as of this encounter (statuses as of 11/08/2022) [facility] of Past illness Narrative* Problem Noted Date Resolved Date 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 11/08/2020 12/07/2020 Regular astigmatism of left eye 10/27/2020 12/07/2020 Colon cancer screening 09/15/2014 0 Well adult exam 05/19/2014 07/17/2019 Overview: Last done 06/03/2019 documented as of this encounter (statuses as of 11/14/2022) [facility] of Past illness Narrative* Problem Noted Date Resolved Date 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 11/08/2020 12/07/2020 Regular astigmatism of left eye 10/27/2020 12/07/2020 Colon cancer screening 09/15/2014 0 Well adult exam 05/19/2014 07/17/2019 Overview: Last done 06/03/2019 documented as of this encounter (statuses as of 12/06/2022) [facility] History of Past illness Narrative* Problem Noted Date Resolved Date 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 11/08/2020 12/07/2020 Regular astigmatism of left eye 10/27/2020 12/07/2020 Colon cancer screening 09/15/2014 0 Well adult exam 05/19/2014 07/17/2019 Overview: Last done 06/03/2019 documented as of this encounter (statuses as of 01/02/2023) [facility] History of Past illness Narrative* Problem Noted Date Resolved Date 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 11/08/2020 12/07/2020 Regular astigmatism of left eye 10/27/2020 12/07/2020 Colon cancer screening 09/15/2014 0 Well adult exam 05/19/2014 07/17/2019 Overview: Last done 06/03/2019 documented as of this encounter (statuses as of 01/12/2023) [facility] History of Past illness Narrative* Problem Noted Date Diagnosed Date Resolved Date Combined forms of age-relate d cataract of left eye 11/08/2020 12/07/2020 Regular astigmatism of left eye 10/27/2020 12/07/2020 Colon cancer screening 09/15/201407/17 Well adult exam 05/19/2014 07/17/2019 Overview: Last done 06/03/2019 documented as of this encounter (statuses as of 01/18/2023) [facility] History of Past illness Narrative* Problem Noted Date Diagnosed Date Resolved Date Combined forms of age-relate d cataract of left eye 11/08/2020 12/07/2020 Regular astigmatism of left eye 10/27/2020 12/07/2020 Colon cancer screening 09/15/201407/17 Well adult exam 05/19/2014 07/17/2019 Overview: Last done 06/03/2019 documented as of this encounter (statuses as of 01/18/2023) [facility] History of Past illness Narrative* Problem Noted Date Diagnosed Date Resolved Date Combined forms of age-relate d cataract of left eye 11/08/2020 12/07/2020 Regular astigmatism of left eye 10/27/2020 12/07/2020 Colon cancer screening 09/15/201407/17 Well adult exam 05/19/2014 07/17/2019 Overview: Last done 06/03/2019 documented as of this encounter (statuses as of 02/14/2023) [facility] History of Past illness Narrative* Problem Noted Date Diagnosed Date Resolved Date Combined forms of age-relate d cataract of left eye 11/08/2020 12/07/2020 Regular astigmatism of left eye 10/27/2020 12/07/2020 Colon cancer screening 09/15/201407/17 Well adult exam 05/19/2014 07/17/2019 Overview: Last done 06/03/2019 documented as of this encounter (statuses as of 02/15/2023) [facility] History of Past illness Narrative* Problem Noted Date Diagnosed Date Resolved Date Combined forms of age-relate d cataract of left eye 11/08/2020 12/07/2020 Regular astigmatism of left eye 10/27/2020 12/07/2020 Colon cancer screening 09/15/201407/17 Well adult exam 05/19/2014 07/17/2019 Overview: Last done 06/03/2019 documented as of this encounter (statuses as of 02/19/2023) [facility] History of Past illness Narrative* Problem Noted Date Diagnosed Date Resolved Date Combined forms of age-relate d cataract of left eye 11/08/2020 12/07/2020 Regular astigmatism of left eye 10/27/2020 12/07/2020 Colon cancer screening 09/15/201407/17 Well adult exam 05/19/2014 07/17/2019 Overview: Last done 06/03/2019 documented as of this encounter (statuses as of 02/19/2023) [facility] History of Past illness Narrative* Problem Noted Date Diagnosed Date Resolved Date Combined forms of age-relate d cataract of left eye 11/08/2020 12/07/2020 Regular astigmatism of left eye 10/27/2020 12/07/2020 Colon cancer screening 09/15/201407/17 Well adult exam 05/19/2014 07/17/2019 Overview: Last done 06/03/2019 documented as of this encounter (statuses as of 03/06/2023) [facility] History of Past illness Narrative* Problem Noted Date Diagnosed Date Resolved Date Combined forms of age-relate d cataract of left eye 11/08/2020 12/07/2020 Regular astigmatism of left eye 10/27/2020 12/07/2020 Colon cancer screening 09/15/201407/17 Well adult exam 05/19/2014 07/17/2019 Overview: Last done 06/03/2019 documented as of this encounter (statuses as of 03/16/2023) [facility] History of Past illness Narrative* Problem Noted Date Diagnosed Date Resolved Date Combined forms of age-relate d cataract of left eye 11/08/2020 12/07/2020 Regular astigmatism of left eye 10/27/2020 12/07/2020 Colon cancer screening 09/15/201407/17 Well adult exam 05/19/2014 07/17/2019 Overview: Last done 06/03/2019 documented as of this encounter (statuses as of 03/20/2023) [facility] History of Past illness Narrative* Problem Noted Date Diagnosed Date Resolved Date Combined forms of age-relate d cataract of left eye 11/08/2020 12/07/2020 Regular astigmatism of left eye 10/27/2020 12/07/2020 Colon cancer screening 09/15/201407/17 Well adult exam 05/19/2014 07/17/2019 Overview: Last done 06/03/2019 documented as of this encounter (statuses as of 03/31/2023) [facility] History of Past illness Narrative* Problem Noted Date Diagnosed Date Resolved Date Combined forms of age-relate d cataract of left eye 11/08/2020 12/07/2020 Regular astigmatism of left eye 10/27/2020 12/07/2020 Colon cancer screening 09/15/201407/17 Well adult exam 05/19/2014 07/17/2019 Overview: Last done 06/03/2019 documented as of this encounter (statuses as of 03/31/2023) [facility] History of Past illness Narrative* Problem Noted Date Diagnosed Date Resolved Date Combined forms of age-relate d cataract of left eye 11/08/2020 12/07/2020 Regular astigmatism of left eye 10/27/2020 12/07/2020 Colon cancer screening 09/15/201407/17 Well adult exam 05/19/2014 07/17/2019 Overview: Last done 06/03/2019 documented as of this encounter (statuses as of 04/02/2023) [facility] History of Past illness Narrative* Problem Noted Date Diagnosed Date Resolved Date Combined forms of age-relate d cataract of left eye 11/08/2020 12/07/2020 Regular astigmatism of left eye 10/27/2020 12/07/2020 Colon cancer screening 09/15/201407/17 Well adult exam 05/19/2014 07/17/2019 Overview: Last done 06/03/2019 documented as of this encounter (statuses as of 04/06/2023) [facility] History of Past illness Narrative* Problem Noted Date Diagnosed Date Resolved Date Combined forms of age-relate d cataract of left eye 11/08/2020 12/07/2020 Regular astigmatism of left eye 10/27/2020 12/07/2020 Colon cancer screening 09/15/201407/17 Well adult exam 05/19/2014 07/17/2019 Overview: Last done 06/03/2019 documented as of this encounter (statuses as of 04/06/2023) [facility] History of Past illness Narrative* Problem Noted Date Diagnosed Date Resolved Date Combined forms of age-relate d cataract of left eye 11/08/2020 12/07/2020 Regular astigmatism of left eye 10/27/2020 12/07/2020 Colon cancer screening 09/15/201407/17 Well adult exam 05/19/2014 07/17/2019 Overview: Last done 06/03/2019 documented as of this encounter (statuses as of 04/18/2023) [facility] History of Past illness Narrative* Problem Noted Date Diagnosed Date Resolved Date Combined forms of age-relate d cataract of left eye 11/08/2020 12/07/2020 Regular astigmatism of left eye 10/27/2020 12/07/2020 Colon cancer screening 09/15/201407/17 Well adult exam 05/19/2014 07/17/2019 Overview: Last done 06/03/2019 documented as of this encounter (statuses as of 05/02/2023) [facility] History of Past illness Narrative* Problem Noted Date Diagnosed Date Resolved Date Combined forms of age-relate d cataract of left eye 11/08/2020 12/07/2020 Regular astigmatism of left eye 10/27/2020 12/07/2020 Colon cancer screening 09/15/201407/17 Well adult exam 05/19/2014 07/17/2019 Overview: Last done 06/03/2019 documented as of this encounter (statuses as of 05/13/2023) [facility] History of Past illness Narrative* Problem Noted Date Diagnosed Date Resolved Date Combined forms of age-relate d cataract of left eye 11/08/2020 12/07/2020 Regular astigmatism of left eye 10/27/2020 12/07/2020 Colon cancer screening 09/15/201407/17 Well adult exam 05/19/2014 07/17/2019 Overview: Last done 06/03/2019 documented as of this encounter (statuses as of 05/28/2023) [facility] History of Past illness Narrative* Problem Noted Date Diagnosed Date Resolved Date Combined forms of age-relate d cataract of left eye 11/08/2020 12/07/2020 Regular astigmatism of left eye 10/27/2020 12/07/2020 Colon cancer screening 09/15/201407/17 Well adult exam 05/19/2014 07/17/2019 Overview: Last done 06/03/2019 documented as of this encounter (statuses as of 06/05/2023) [facility] History of Past illness Narrative* Problem Noted Date Diagnosed Date Resolved Date Combined forms of age-relate d cataract of left eye 11/08/2020 12/07/2020 Regular astigmatism of left eye 10/27/2020 12/07/2020 Colon cancer screening 09/15/201407/17 Well adult exam 05/19/2014 07/17/2019 Overview: Last done 06/03/2019 documented as of this encounter (statuses as of 06/08/2023) [facility] History of Past illness Narrative* Problem Noted Date Diagnosed Date Resolved Date Combined forms of age-relate d cataract of left eye 11/08/2020 12/07/2020 Regular astigmatism of left eye 10/27/2020 12/07/2020 Colon cancer screening 09/15/201407/17 Well adult exam 05/19/2014 07/17/2019 Overview: Last done 06/03/2019 documented as of this encounter (statuses as of 06/23/2023) [facility] Diagnosis Esophageal spasm Dyskinesia of esophagus [facility] Diagnosis 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) Type II or unspecified type diabetes mellitus without mention of complication, not stated as uncontrolled [facility] Diagnosis Dizziness Dizziness and giddiness Fall, initial encounter [facility] Fall, initial encounter- Primary Costochondritis Tietze's disease Wheezing Acute cough Breast development in males Hypertrophy of breast Tinea corporis Dermatophytosis of the body Encounter for immunization Need for other specified prophylactic vaccination against single bacterial disease [facility] Diagnosis Stenosis of left carotid artery- Primary Occlusion and stenosis of carotid artery without mention of cerebral infarction Peripheral arterial disease (HCC) Peripheral vascular disease, unspecified [facility] Diagnosis Medicare annual wellness visit, subsequent- Primary Routine general medical examination at a health care facility Advanced care planning/counseling discussion Other specified counseling Controlled type 2 diabetes mellitus with diabetic peripheral angiopathy without gangrene, without long-term current use of insulin (HCC) Type 2 diabetes mellitus with peripheral vascular disease (HCC) Mixed hyperlipidemia Essential hypertension with goal blood pressure less than 140/90 Essential hypertension Unspecified essential hypertension Disorder of prostate Unspecified disorder of prostate Cardiomyopathy, ischemic Other specified forms of chronic ischemic heart disease Coronary artery disease involving coronary bypass graft of ak chin heart without angina pectoris Chronic obstructive pulmonary disease, unspecified COPD type (HCC) Obstructive sleep apnea syndrome Obstructive sleep apnea (adult) (pediatric) Gastroesophageal reflux disease without esophagitis Esophageal reflux 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) Type II or unspecified type diabetes mellitus without mention of complication, not stated as uncontrolled [facility] Diagnosis Elevated PSA- Primary Elevated prostate specific antigen (PSA) [facility]* Diagnosis Right calf pain- Primary Cellulitis of skin Cellulitis and abscess of unspecified site [facility]* Diagnosis Cellulitis of skin- Primary Cellulitis and abscess of unspecified site [facility] Diagnosis Occlusion and stenosis of unspecified carotid artery- Primary Screening for nephropathy [facility]* Diagnosis Skin mass- Primary Localized superficial swelling, mass, or lump Cellulitis of skin Cellulitis and abscess of unspecified site [facility]* Diagnosis Soft tissue mass- Primary Disorders of soft tissue, unspecified Abscess Cellulitis and abscess of unspecified site [facility]* Diagnosis Sebaceous cyst Abscess Cellulitis and abscess of unspecified site [facility] Diagnosis Occlusion and stenosis of unspecified carotid artery- Primary Carotid artery stenosis, asymptomatic, left [facility] Diagnosis Right wrist pain- Primary Pain in joint, forearm [facility] Diagnosis Right wrist pain- Primary Pain in joint, forearm Pain of right hand Pain in limb [facility] Diagnosis Arthritis of carpometacarpal (CMC) joint of right thumb- Primary [facility] Diagnosis Chronic cough- Primary Cough [facility]* Diagnosis Type 2 diabetes mellitus with peripheral vascular disease (HCC)- Primary Controlled type 2 diabetes mellitus with diabetic peripheral angiopathy without gangrene, without long-term current use of insulin (HCC) 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) Type II or unspecified type diabetes mellitus without mention of complication, not stated as uncontrolled Essential hypertension with goal blood pressure less than 140/90 Mixed hyperlipidemia Coronary artery disease involving coronary bypass graft of ak chin heart without angina pectoris Cardiomyopathy, ischemic Other specified forms of chronic ischemic heart disease Angina pectoris (HCC) Other and unspecified angina pectoris Bilateral carotid artery stenosis Occlusion and stenosis of carotid artery without mention of cerebral infarction Gastroesophageal reflux disease without esophagitis Esophageal reflux Chronic obstructive pulmonary disease, unspecified COPD type (HCC) Obstructive sleep apnea syndrome Obstructive sleep apnea (adult) (pediatric) History of CVA (cerebrovascular accident) Transient ischemic attack (TIA), and cerebral infarction without residual deficits Anxiety Anxiety state, unspecified Benign non-nodular prostatic hyperplasia with lower urinary tract symptoms 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) [facility]* Diagnosis Thrush (oral) [facility]* Diagnosis Occlusion and stenosis of unspecified carotid artery [facility] Diagnosis Esophageal spasm Dyskinesia of esophagus [facility] Diagnosis COVID-19- Primary Chronic obstructive pulmonary disease, unspecified COPD type (HCC) Acute midline low back pain without sciatica Encounter for immunization Need for other specified prophylactic vaccination against single bacterial disease [facility] Diagnosis DDD (degenerative disc disease), lumbar- Primary Degeneration of lumbar or lumbosacral intervertebral disc [facility] Name Dates Details Instructions not documented [facility] Work Phone: Reason for referral (narrative)* Diagnostic Procedure Only (Routine) - Authorized Specialty Diagnoses / Procedures Referred By Contac t Referred To Contact [facility] Diagnoses Breast development in males Procedures GRACE DIAGNOSTIC LT DIAGNOSTIC MAMMOGRAPHY COMPUTER-AIDED DETCJ UNI Maylin Pimentel PA-C [address] [place] [address] [facility] [email or web address] [place] [address] Referral ID Status Reason Start Date Expiration Date Visits Requested Visits Authorized [id number] Authorized Auto-Generat ed Referral 07/26/2022 08/25/2023 1 1 * Diagnostic Procedure Only (Routine) - Authorized Specialty Diagnoses / Procedures Referred By Pamelaac t Referred To Contact [facility] Diagnoses Breast development in males Procedures US BREAST LTD LT US BREAST UNI REAL TIME WITH IMAGE LIMITED Maylin Pimentel PA-C [address] [place] [address] [facility] [address] [address] Referral ID Status Reason Start Date Expiration Date Visits Requested Visits Authorized [id number] Authorized Auto-Generat ed Referral 07/26/2022 08/25/2023 1 1 [facility] for referral (narrative)* Outpatient Procedure (Routine) - Authorized Specialty Diagnoses / Procedures Referred By Contac t Referred To [facility] Diagnoses Peripheral arterial disease (HCC) Procedures PVR ANK PRESS RENEE VAS LAB NON-INVAS PHYSIOLOGIC STD EXTREMITY ART 2 LEVEL Radha Marina, DO [address] [place] [address] [place] [address] Referral ID Status Reason Start Date Expiration Date Visits Requested Visits Authorized [id number] Authorized Auto-Generat ed Referral 09/13/2022 09/13/2023 1 1 * Outpatient Procedure (Routine) - Authorized Specialty Diagnoses / Procedures Referred By Contac t Referred To Contact [facility] [place] Diagnoses Peripheral arterial disease (HCC) Procedures US LEG ARTERIAL PERIPH UNL VAS LAB DUP-SCAN LXTR ART/ARTL BPGS UNI/LMTD STUDY Radha Marina, DO [address] [place] [address] [place] [address] Referral ID Status Reason Start Date Expiration Date Visits Requested Visits Authorized [id number] Authorized Auto-Generat ed Referral 09/13/2022 09/13/2023 1 1 * Outpatient Procedure (Routine) - Authorized Specialty Diagnoses / Procedures Referred By Contac t Referred To Contact [facility] Diagnoses Stenosis of left carotid artery Procedures US CAROTID ARTERIES RENEE VAS LAB DUPLEX SCAN EXTRACRANIAL ART COMPL BI STUDY Radha Marina, DO [address] [place] [id number] [address] [address] Referral ID Status Reason Start Date Expiration Date Visits Requested Visits Authorized [id number] Authorized Auto-Generat ed Referral 09/13/2022 09/13/2023 1 1 [facility] for referral (narrative)* Diagnostic Procedure Only (Routine) - Authorized Specialty Diagnoses / Procedures Referred By Contac t Referred To Contact [facility] Diagnoses Skin mass Procedures US EXTREMITY MASS/FLUID COLLECTION RIGHT Maylin Pimentel PA-C [address] [place] [address] [facility] Referral ID Status Reason Start Date Expiration Date Visits Requested Visits Authorized [id number] Authorized Auto-Generat ed Referral 11/03/2022 12/03/2023 1 1 [facility] for referral (narrative)* Outpatient Procedure (Routine) - Authorized Specialty Diagnoses / Procedures Referred By Contac t Referred To Contact [facility] Diagnoses Carotid artery stenosis, asymptomatic, left Procedures US CAROTID ARTERIES RENEE V[facility] LAB DUPLEX SCAN EXTRACRANIAL ART COMPL BI STUDY Radha Marina DO [address] [place] [address] [facility] [place] [address] [place] [address] Referral ID Status Reason Start Date Expiration Date Visits Requested Visits Authorized [id number] Authorized Auto-Generat ed Referral 12/26/2022 12/26/2023 1 1 [facility] for referral (narrative)* Diagnostic Procedure Only (Urgent) - Closed Specialty Diagnoses / Procedures Referred By Contac t Referred To Contact [facility] IMAG[facility] Diagnoses Right wrist pain Procedures XR WRIST INJURY 4V PA/LAT/OBL/SCAPH RIGHT RADEX WRIST COMPLETE MINIMUM 3 VIEWS Everett Cardenas APRN.CNP [address] [place] [address] [facility] Referral ID Status Reason Start Date Expiration Date V isits Requested Visits Authorized [id number] Closed Auto-Generate d Referral 02/14/2023 03/15/2024 1 1 * Diagnostic Procedure Only (Urgent) - Closed Specialty Diagnoses / Procedures Referred By Contac t Referred To Contact XR IMAGING Diagnoses Pain of right hand Procedures XR HAND GENERAL 3V PA/LAT/OBL RIGHT RADEX HAND MINIMUM 3 VIEWS Everett Cardenas APRN.CNP [address] [place] [address] [facility] Referral ID Status Reason Start Date Expiration Date V isits Requested Visits Authorized [id number] Closed Auto-Generate d Referral 02/14/2023 03/15/2024 1 1 [facility] for referral (narrative)* Diagnostic Procedure Only (Urgent) - Authorized Specialty Diagnoses / Procedures Referred By Contac t Referred To Contact [facility] Diagnoses Coronary artery disease involving coronary bypass graft of ak chin heart without angina pectoris Cardiomyopathy, ischemic Angina pectoris (HCC) Encounter for screening for cardiovascular disorders Procedures NM CARDIAC PERF STRESS/PHARM MYOCARDIAL SPECT MULTIPLE STUDIES Fito Chavez MD [address] [place] [address] [facility] [address] [place] [address] Referral ID Status Reason Start Date Expiration Date Visits Requested Visits Authorized [id number] Authorized Auto-Generat ed Referral 03/30/2023 04/28/2024 1 1 * Outpatient Procedure (Routine) - Closed Specialty Diagnoses / Procedures Referred By Contac t Referred To [facility] Diagnoses Coronary artery disease involving coronary bypass graft of ak chin heart without angina pectoris Cardiomyopathy, ischemic Angina pectoris (HCC) Procedures ECG COMPLETE ECG ROUTINE ECG W/LEAST 12 LDS W/I&R Fito Chavez MD [address] [place] [address] [facility] [address] [place] [address] Referral ID Status Reason Start Date Expiration Date V isits Requested Visits Authorized [id number] Closed Auto-Generate d Referral 03/30/2023 03/29/2024 1 1 [facility] for referral (narrative)* Diagnostic Procedure Only (Routine) - Closed Specialty Diagnoses / Procedures Referred By Dixie t Referred To Contact XR IMAGING Diagnoses Acute midline low back pain without sciatica Procedures XR LUMBAR MOTION 4V AP/LAT/ FLEX/EXT RADEX SPINE LUMBOSACRAL MINIMUM 4 VIEWS Azul Pardo APRN.CNP [address] [place] [address] [place] [address] Referral ID Status Reason Start Date Expiration Date V isits Requested Visits Authorized [id number] Closed Auto-Generate d Referral 06/04/2023 07/03/2024 1 1 [facility] Summary Purpose Family History No Family History Records Found Mother Name Dates Details Family history of cardiac di sorder(V17.49, Z82.49) Status:Active Family history of hypertensi on(V17.49, Z82.49) Status:Active Father Name Dates Details Family history of cardiac di sorder(V17.49, Z82.49) Status:Active Family history of hypertensi on(V17.49, Z82.49) Status:Active Mother Name Dates Details Family history of cardiac di sorder(V17.49, Z82.49) Status:Active Family history of hypertensi on(V17.49, Z82.49) Status:Active Father Name Dates Details Family history of cardiac di sorder(V17.49, Z82.49) Status:Active Family history of hypertensi on(V17.49, Z82.49) Status:Active Mother Name Dates Details Family history of cardiac di sorder(V17.49, Z82.49) Status:Active Family history of hypertensi on(V17.49, Z82.49) Status:Active Father Name Dates Details Family history of cardiac di sorder(V17.49, Z82.49) Status:Active Family history of hypertensi on(V17.49, Z82.49) Status:Active Advance Directives No Advanced Directives Records FoundDocuments on File Type Date Recorded Patient Systems Support Officer Expl anation Advance Directive(s) Hospital Course Note Discharge Summary PHYSICAL T HERAPY Referral/Discharge Information: Date of Discharge: 08/28/19 Date of Last Visit: 08/12/19 Date of Evaluation: 07/31/19 Number of Attended Visits: 4 Referred by: Fito Chavez MD Referred for: Left knee pain Problems/Issues Addressed: (Left knee ROM, hip and quad weakness) Status at Discharge: (Per phone call with patient on 08/26/19, the patient reported that his left knee feels good following the steroid injection on 08/25/19. He stated that he would attend his final PT session, but no-showed for this) Reason for Discharge: Attendance inconsistent. Failed to schedule and/or to keep follow-up appointment(s). Signatures Electronically signed by : Janna Unger, PT; Aug 28 2019 2:18PM EST (Author) Reason for Referral Specialty Diagnoses / Procedures Referred By Dixie t Referred To Contact CT IMAGING Diagnoses Dizziness Fall, initial encounter Procedures CT BRAIN WO IVCON CT HEAD/BRAIN W/O CONTRAST MATERIAL Maylin Pimentel PA-C [address] [place] [address] Ct Imaging Referral ID Status Reason Start Date Expiration Date V isits Requested Visits Authorized [id number] Closed Auto-Generate d Referral 02/24/2022 03/26/2023 1 1 Specialty Diagnoses / Procedures Referred By Contac t Referred To Contact CT IMAGING Diagnoses Occlusion and stenosis of unspecified carotid artery Procedures CTA NECK W IVCON CT ANGIOGRAPHY NECK W/CONTRAST/NONCONTRAST Radha Marina, DO [address] [place] [address] Ct Imaging Referral ID Status Reason Start Date Expiration Date V isits Requested Visits Authorized [id number] Closed Auto-Generate d Referral 10/10/2022 11/09/2023 1 1 Specialty Diagnoses / Procedures Referred By Contac t Referred To Contact CT IMAGING Diagnoses Occlusion and stenosis of unspecified carotid artery Procedures CTA HEAD W IVCON CT ANGIOGRAPHY HEAD W/CONTRAST/NONCONTRAST Radha Marina, DO [address] [place] [address] Ct Imaging Referral ID Status Reason Start Date Expiration Date V isits Requested Visits Authorized [id number] Closed Auto-Generate d Referral 10/10/2022 11/09/2023 1 1 Specialty Diagnoses / Procedures Referred By Contac t Referred To Contact General Surgery Diagnoses Soft tissue mass Abscess Procedures CONSULT TO GENERAL SURGERY OFFICE/OUTPATIENT [facility] 60-74 MINUTES Maylin Pimentel PA-C [address] [place] [address] Referral ID Status Reason Start Date Expiration Date Visits Requested Visits Authorized [id number] Authorized PCP Requested Referral 11/08/2022 11/08/2023 1 1 Specialty Diagnoses / Procedures Referred By Contac t Referred To Contact Orthopedics Diagnoses Right wrist pain Procedures CONSULT TO ORTHOPAEDICS OFFICE/OUTPATIENT [facility] MDM 60-74 MINUTES Maylin Pimentel PA-C [address] [place] [address] Referral ID Status Reason Start Date Expiration Date Visits Requested Visits Authorized [id number] Authorized PCP Requested Referral 01/11/2023 01/11/2024 1 1 Specialty Diagnoses / Procedures Referred By Contac t Referred To Contact XR IMAGING Diagnoses Right wrist pain Procedures XR WRIST GENERAL 3V PA/LAT/OBL RIGHT RADEX WRIST COMPLETE MINIMUM 3 VIEWS Maylin Pimentel PA-C [address] [place] [address] Xr Imaging Referral ID Status Reason Start Date Expiration Date V isits Requested Visits Authorized [id number] Closed Auto-Generate d Referral 01/11/2023 02/10/2024 1 1 Specialty Diagnoses / Procedures Referred By Contac t Referred To Contact CT IMAGING Diagnoses Chronic cough Procedures CT CHEST WO IVCON DIAGNOSTIC COMPUTED TOMOGRAPHY THORAX W/O CNTRST Maylin Pimentel PA-C [address] [place] [address] [place] [address] Referral ID Status Reason Start Date Expiration Date Visits Requested Visits Authorized [id number] Authorized Auto-Generat ed Referral 03/19/2023 04/17/2024 1 1 Specialty Diagnoses / Procedures Referred By Contac t Referred To Contact CT IMAGING Diagnoses Occlusion and stenosis of unspecified carotid artery Procedures CTA NECK W IVCON CT ANGIOGRAPHY NECK W/CONTRAST/NONCONTRAST Radha Marina, DO [address] [place] [id number] Ct Imaging [place] [address] Specialty Diagnoses / Procedures Referred By Contac t Referred To Contact CT IMAGING Diagnoses Occlusion and stenosis of unspecified carotid artery Procedures CTA HEAD W IVCON CT ANGIOGRAPHY HEAD W/CONTRAST/NONCONTRAST Radha Marina, DO [address] [place] [address] Ct Imaging [place] [address] Specialty Diagnoses / Procedures Referred By Contac t Referred To Contact [facility] Diagnoses DDD (degenerative disc disease), lumbar Procedures CONSULT TO [facility] OFFICE/OUTPATIENT [facility] 60-74 MINUTES Azul Pardo APRN.PLANT PATHOLOGIST [address] [place] [address] Referral ID Status Reason Start Date Expiration Date Visits Requested Visits Authorized [id number] Authorized PCP Requested Referral 3 06/06/2024 1 1 Additional Source Comments (unrecognized sect ion and content) No Status Records FoundNo Status Records FoundNo Status Records FoundNo Status Records FoundNo Status Records FoundNo Status Records FoundNo Status Records FoundNo Status Records FoundNo Status Records Found INFORMATION SOURCE (unrecogn ized section and content) DATE CREATED AUTHOR AUTHOR'S ORGANIZ ATION 07/30/2020 [facility] DATE CREATED AUTHOR AUTHOR'S ORGANIZ ATION 12/15/2020 [facility] DATE CREATED AUTHOR AUTHOR'S ORGANIZ ATION 12/23/2020 [facility] DATE CREATED AUTHOR AUTHOR'S ORGANIZ ATION 11/09/2022 [facility] DATE CREATED AUTHOR AUTHOR'S ORGANIZ ATION 03/07/2023 [facility] DATE CREATED AUTHOR AUTHOR'S ORGANIZ ATION 04/10/2023 [facility] DATE CREATED AUTHOR AUTHOR'S ORGANIZ ATION 04/25/2023 [facility] DATE CREATED AUTHOR AUTHOR'S ORGANIZ ATION 06/26/2023 [facility] Source Comments (unrecognize d section and content) In the event this informatio n is protected by the Federal Confidentiality of Alcohol and Drug Abuse Patient Records regulations: The Federal rules restrict any use of the information to criminally investigate or prosecute any alcohol or drug abuse patient.[facility] the event this information is protected by the Federal Confidentiality of Alcohol and Drug Abuse Patient Records regulations: The Federal rules restrict any use of the information to criminally investigate or prosecute any alcohol or drug abuse patient.[facility] CenterIn the event this information is protected by the Federal Confidentiality of Alcohol and Drug Abuse Patient Records regulations: The Federal rules restrict any use of the information to criminally investigate or prosecute any alcohol or drug abuse patient.[facility] CenterIn the event this information is protected by the Federal Confidentiality of Alcohol and Drug Abuse Patient Records regulations: The Federal rules restrict any use of the information to criminally investigate or prosecute any alcohol or drug abuse patient.[facility] CenterIn the event this information is protected by the Federal Confidentiality of Alcohol and Drug Abuse Patient Records regulations: The Federal rules restrict any use of the information to criminally investigate or prosecute any alcohol or drug abuse patient.[facility] CenterIn the event this information is protected by the Federal Confidentiality of Alcohol and Drug Abuse Patient Records regulations: The Federal rules restrict any use of the information to criminally investigate or prosecute any alcohol or drug abuse patient.[facility] CenterIn the event this information is protected by the Federal Confidentiality of Alcohol and Drug Abuse Patient Records regulations: The Federal rules restrict any use of the information to criminally investigate or prosecute any alcohol or drug abuse patient.[facility] CenterIn the event this information is protected by the Federal Confidentiality of Alcohol and Drug Abuse Patient Records regulations: The Federal rules restrict any use of the information to criminally investigate or prosecute any alcohol or drug abuse patient.[facility] CenterIn the event this information is protected by the Federal Confidentiality of Alcohol and Drug Abuse Patient Records regulations: The Federal rules restrict any use of the information to criminally investigate or prosecute any alcohol or drug abuse patient.[facility] CenterIn the event this information is protected by the Federal Confidentiality of Alcohol and Drug Abuse Patient Records regulations: The Federal rules restrict any use of the information to criminally investigate or prosecute any alcohol or drug abuse patient.[facility] CenterIn the event this information is protected by the Federal Confidentiality of Alcohol and Drug Abuse Patient Records regulations: The Federal rules restrict any use of the information to criminally investigate or prosecute any alcohol or drug abuse patient.[facility] CenterIn the event this information is protected by the Federal Confidentiality of Alcohol and Drug Abuse Patient Records regulations: The Federal rules restrict any use of the information to criminally investigate or prosecute any alcohol or drug abuse patient.[facility] CenterIn the event this information is protected by the Federal Confidentiality of Alcohol and Drug Abuse Patient Records regulations: The Federal rules restrict any use of the information to criminally investigate or prosecute any alcohol or drug abuse patient.[facility] CenterIn the event this information is protected by the Federal Confidentiality of Alcohol and Drug Abuse Patient Records regulations: The Federal rules restrict any use of the information to criminally investigate or prosecute any alcohol or drug abuse patient.[facility] CenterIn the event this information is protected by the Federal Confidentiality of Alcohol and Drug Abuse Patient Records regulations: The Federal rules restrict any use of the information to criminally investigate or prosecute any alcohol or drug abuse patient.[facility] CenterIn the event this information is protected by the Federal Confidentiality of Alcohol and Drug Abuse Patient Records regulations: The Federal rules restrict any use of the information to criminally investigate or prosecute any alcohol or drug abuse patient.[facility] CenterIn the event this information is protected by the Federal Confidentiality of Alcohol and Drug Abuse Patient Records regulations: The Federal rules restrict any use of the information to criminally investigate or prosecute any alcohol or drug abuse patient.[facility] CenterIn the event this information is protected by the Federal Confidentiality of Alcohol and Drug Abuse Patient Records regulations: The Federal rules restrict any use of the information to criminally investigate or prosecute any alcohol or drug abuse patient.[facility] CenterIn the event this information is protected by the Federal Confidentiality of Alcohol and Drug Abuse Patient Records regulations: The Federal rules restrict any use of the information to criminally investigate or prosecute any alcohol or drug abuse patient.[facility] CenterIn the event this information is protected by the Federal Confidentiality of Alcohol and Drug Abuse Patient Records regulations: The Federal rules restrict any use of the information to criminally investigate or prosecute any alcohol or drug abuse patient.[facility] CenterIn the event this information is protected by the Federal Confidentiality of Alcohol and Drug Abuse Patient Records regulations: The Federal rules restrict any use of the information to criminally investigate or prosecute any alcohol or drug abuse patient.[facility] CenterIn the event this information is protected by the Federal Confidentiality of Alcohol and Drug Abuse Patient Records regulations: The Federal rules restrict any use of the information to criminally investigate or prosecute any alcohol or drug abuse patient.[facility] CenterIn the event this information is protected by the Federal Confidentiality of Alcohol and Drug Abuse Patient Records regulations: The Federal rules restrict any use of the information to criminally investigate or prosecute any alcohol or drug abuse patient.[facility] CenterIn the event this information is protected by the Federal Confidentiality of Alcohol and Drug Abuse Patient Records regulations: The Federal rules restrict any use of the information to criminally investigate or prosecute any alcohol or drug abuse patient.[facility] CenterIn the event this information is protected by the Federal Confidentiality of Alcohol and Drug Abuse Patient Records regulations: The Federal rules restrict any use of the information to criminally investigate or prosecute any alcohol or drug abuse patient.[facility] CenterIn the event this information is protected by the Federal Confidentiality of Alcohol and Drug Abuse Patient Records regulations: The Federal rules restrict any use of the information to criminally investigate or prosecute any alcohol or drug abuse patient.[facility] CenterIn the event this information is protected by the Federal Confidentiality of Alcohol and Drug Abuse Patient Records regulations: The Federal rules restrict any use of the information to criminally investigate or prosecute any alcohol or drug abuse patient.[facility] CenterIn the event this information is protected by the Federal Confidentiality of Alcohol and Drug Abuse Patient Records regulations: The Federal rules restrict any use of the information to criminally investigate or prosecute any alcohol or drug abuse patient.[facility] CenterIn the event this information is protected by the Federal Confidentiality of Alcohol and Drug Abuse Patient Records regulations: The Federal rules restrict any use of the information to criminally investigate or prosecute any alcohol or drug abuse patient.[facility] CenterIn the event this information is protected by the Federal Confidentiality of Alcohol and Drug Abuse Patient Records regulations: The Federal rules restrict any use of the information to criminally investigate or prosecute any alcohol or drug abuse patient.[facility] CenterIn the event this information is protected by the Federal Confidentiality of Alcohol and Drug Abuse Patient Records regulations: The Federal rules restrict any use of the information to criminally investigate or prosecute any alcohol or drug abuse patient.[facility] CenterIn the event this information is protected by the Federal Confidentiality of Alcohol and Drug Abuse Patient Records regulations: The Federal rules restrict any use of the information to criminally investigate or prosecute any alcohol or drug abuse patient.[facility] CenterIn the event this information is protected by the Federal Confidentiality of Alcohol and Drug Abuse Patient Records regulations: The Federal rules restrict any use of the information to criminally investigate or prosecute any alcohol or drug abuse patient.[facility] CenterIn the event this information is protected by the Federal Confidentiality of Alcohol and Drug Abuse Patient Records regulations: The Federal rules restrict any use of the information to criminally investigate or prosecute any alcohol or drug abuse patient.[facility] CenterIn the event this information is protected by the Federal Confidentiality of Alcohol and Drug Abuse Patient Records regulations: The Federal rules restrict any use of the information to criminally investigate or prosecute any alcohol or drug abuse patient.[facility] CenterIn the event this information is protected by the Federal Confidentiality of Alcohol and Drug Abuse Patient Records regulations: The Federal rules restrict any use of the information to criminally investigate or prosecute any alcohol or drug abuse patient.[facility] CenterIn the event this information is protected by the Federal Confidentiality of Alcohol and Drug Abuse Patient Records regulations: The Federal rules restrict any use of the information to criminally investigate or prosecute any alcohol or drug abuse patient.[facility] CenterIn the event this information is protected by the Federal Confidentiality of Alcohol and Drug Abuse Patient Records regulations: The Federal rules restrict any use of the information to criminally investigate or prosecute any alcohol or drug abuse patient.[facility] CenterIn the event this information is protected by the Federal Confidentiality of Alcohol and Drug Abuse Patient Records regulations: The Federal rules restrict any use of the information to criminally investigate or prosecute any alcohol or drug abuse patient.[facility] CenterIn the event this information is protected by the Federal Confidentiality of Alcohol and Drug Abuse Patient Records regulations: The Federal rules restrict any use of the information to criminally investigate or prosecute any alcohol or drug abuse patient.[facility] CenterIn the event this information is protected by the Federal Confidentiality of Alcohol and Drug Abuse Patient Records regulations: The Federal rules restrict any use of the information to criminally investigate or prosecute any alcohol or drug abuse patient.[facility] CenterIn the event this information is protected by the Federal Confidentiality of Alcohol and Drug Abuse Patient Records regulations: The Federal rules restrict any use of the information to criminally investigate or prosecute any alcohol or drug abuse patient.[facility] CenterIn the event this information is protected by the Federal Confidentiality of Alcohol and Drug Abuse Patient Records regulations: The Federal rules restrict any use of the information to criminally investigate or prosecute any alcohol or drug abuse patient.[facility] CenterIn the event this information is protected by the Federal Confidentiality of Alcohol and Drug Abuse Patient Records regulations: The Federal rules restrict any use of the information to criminally investigate or prosecute any alcohol or drug abuse patient.[facility] CenterIn the event this information is protected by the Federal Confidentiality of Alcohol and Drug Abuse Patient Records regulations: The Federal rules restrict any use of the information to criminally investigate or prosecute any alcohol or drug abuse patient.[facility] CenterIn the event this information is protected by the Federal Confidentiality of Alcohol and Drug Abuse Patient Records regulations: The Federal rules restrict any use of the information to criminally investigate or prosecute any alcohol or drug abuse patient.[facility] CenterIn the event this information is protected by the Federal Confidentiality of Alcohol and Drug Abuse Patient Records regulations: The Federal rules restrict any use of the information to criminally investigate or prosecute any alcohol or drug abuse patient.[facility] CenterIn the event this information is protected by the Federal Confidentiality of Alcohol and Drug Abuse Patient Records regulations: The Federal rules restrict any use of the information to criminally investigate or prosecute any alcohol or drug abuse patient.[facility] CenterIn the event this information is protected by the Federal Confidentiality of Alcohol and Drug Abuse Patient Records regulations: The Federal rules restrict any use of the information to criminally investigate or prosecute any alcohol or drug abuse patient.[facility] CenterIn the event this information is protected by the Federal Confidentiality of Alcohol and Drug Abuse Patient Records regulations: The Federal rules restrict any use of the information to criminally investigate or prosecute any alcohol or drug abuse patient.[facility] CenterIn the event this information is protected by the Federal Confidentiality of Alcohol and Drug Abuse Patient Records regulations: The Federal rules restrict any use of the information to criminally investigate or prosecute any alcohol or drug abuse patient.[facility] CenterIn the event this information is protected by the Federal Confidentiality of Alcohol and Drug Abuse Patient Records regulations: The Federal rules restrict any use of the information to criminally investigate or prosecute any alcohol or drug abuse patient.[facility] CenterIn the event this information is protected by the Federal Confidentiality of Alcohol and Drug Abuse Patient Records regulations: The Federal rules restrict any use of the information to criminally investigate or prosecute any alcohol or drug abuse patient.[facility] CenterIn the event this information is protected by the Federal Confidentiality of Alcohol and Drug Abuse Patient Records regulations: The Federal rules restrict any use of the information to criminally investigate or prosecute any alcohol or drug abuse patient.[facility] CenterIn the event this information is protected by the Federal Confidentiality of Alcohol and Drug Abuse Patient Records regulations: The Federal rules restrict any use of the information to criminally investigate or prosecute any alcohol or drug abuse patient.[facility] CenterIn the event this information is protected by the Federal Confidentiality of Alcohol and Drug Abuse Patient Records regulations: The Federal rules restrict any use of the information to criminally investigate or prosecute any alcohol or drug abuse patient.[facility] CenterIn the event this information is protected by the Federal Confidentiality of Alcohol and Drug Abuse Patient Records regulations: The Federal rules restrict any use of the information to criminally investigate or prosecute any alcohol or drug abuse patient.[facility] CenterIn the event this information is protected by the Federal Confidentiality of Alcohol and Drug Abuse Patient Records regulations: The Federal rules restrict any use of the information to criminally investigate or prosecute any alcohol or drug abuse patient.[facility] Reason for Visit (unrecogniz ed section and content) Reason Onset Date Comments Refill Request 10/14/2021 Reason Onset Date Comments Community Monitoring Outreach 10/27/2021 Te lephonic Follow Up Reason Onset Date Comments Community Monitoring Outreach 12/09/2021 Te lephonic Follow Up Reason Onset Date Comments Community Monitoring Outreach 12/12/2021 Te lephonic Follow Up Reason Onset Date Comments Community Monitoring Outreach 01/02/2022 Te lephonic Follow Up Reason Onset Date Comments Refill Request 01/17/2022 SEE RX NOTES Reason Comments Refill Request Reason Onset Date Comments Community Monitoring Outreach 02/27/2022 CD M Telephonic Follow Up Reason Comments Radiology CT Specialty Diagnoses / Procedures Referred By Dixie swanson Referred To Contact CT IMAGING Diagnoses Dizziness Fall, initial encounter Procedures CT BRAIN WO IVCON CT HEAD/BRAIN W/O CONTRAST MATERIAL Maylin Pimentel PA-C [address] [place] [address] Ct Imaging Referral ID Status Reason Start Date Expiration Date V isits Requested Visits Authorized [id number] Closed Auto-Generate d Referral 02/24/2022 03/26/2023 1 1 Reason Comments blood pressure readings Reason Onset Date Comments Community Monitoring Outreach 03/28/2022 CD M Telephonic Reason Onset Date Comments community monitoring outreach 05/25/2022 CD M telephonic outreach Reason Onset Date Comments community monitoring outreach 06/27/2022 CD M-Telephonic outreach Reason Comments ER F/U [facility] 07/19/22 Reason Comments Results Reason Onset Date Comments community monitoring outreach 07/28/2022 CD M-Telephonic outreach Reason Comments Consult Consult Pulmonary Reason Onset Date Comments community monitoring outreach 08/31/2022 CD M-Telephonic outreach Reason Onset Date Comments Refill Request 09/19/2022 Reason Comments Medicare Wellness Exam Reason Onset Date Comments community monitoring outreach 10/03/2022 CD M-Telephonic outreach Reason Comments Follow Up Hard lump on right c fci, warm to the touch X 1 week Reason Comments Follow Up Reason Comments Established Patient Reason Onset Date Comments community monitoring outreach 11/01/2022 CD M-Telephonic outreach Reason Comments Recheck Cellulitis right leg Reason Comments Results Reason Comments Consult Soft tissue mass clara f of right leg Specialty Diagnoses / Procedures Referred By Contac t Referred To Contact General Surgery Diagnoses Soft tissue mass Abscess Procedures CONSULT TO GENERAL SURGERY OFFICE/OUTPATIENT NEW HIGH MDM 60-74 MINUTES Maylin Pimentel PA-C [address] [place] [address] Referral ID Status Reason Start Date Expiration Date V isits Requested Visits Authorized [id number] Closed PCP Requested Referral 11/08/2022 11/08/2023 1 1 Reason Onset Date Comments community monitoring outreach 12/06/2022 CD M-Telephonic outreach Reason Comments Established Patient Reason Comments Pain right wrist Reason Comments Pain Wrist pain Right x 3 weeks pain intense today Reason Comments Medication Request Reason Comments New Patient Reason Onset Date Comments community monitoring outreach 03/14/2023 CD M-Telephonic outreach Reason Comments Recheck cough Reason Comments 6 Month Exam Reason Comments Reminder Call Reason Onset Date Comments community monitoring outreach 04/17/2023 CD M-Telephonic outreach Reason Comments Radiology CT Specialty Diagnoses / Procedures Referred By Contac t Referred To Contact CT IMAGING Diagnoses Occlusion and stenosis of unspecified carotid artery Procedures CTA NECK W IVCON CT ANGIOGRAPHY NECK W/CONTRAST/NONCONTRAST Radha Marina D, DO [address] [place] [address] [facility] [place] [address] Referral ID Status Reason Start Date Expiration Date V isits Requested Visits Authorized [id number] Closed Auto-Generate d Referral 10/10/2022 11/09/2023 1 1 Reason Onset Date Comments Refill Request 05/26/2023 Reason Comments Hospital F/U Reason Onset Date Comments community monitoring outreach 06/22/2023 CD M-Telephonic outreach Care Teams (unrecognized sec tion and content) Cnc Supervisor Relationship Specialty Start Date End Date Fito Chavez MD [address] [place], [place] [id number] PCP - General Family Practice 09/11/13 Giselle Cortez, copy technicianSplicing Technician 03/10/21 Mio Garcia [address] [address] Solar Panel Technician Cardiology 07/20/21 Kiko Slaughter [address] [place] [address] Orthodontic Band Maker Internal Medicine 09/16/21 Cnc Supervisor Relationship Specialty Start Date End Date Fito Chavez MD [address] [place] [address] PCP - General Family Practice 09/11/13 Giselle Cortez, copy technicianSplicing Technician 03/10/21 Mio Garcia [address] [place] [address] Solar Panel Technician Cardiology 07/20/[address]iko Slaughter [address] [place] [address] Orthodontic Band Maker Internal Medicine 09/16/21 Cnc Supervisor Relationship Specialty Start Date End Date Fito Chavez MD [address] [place] [address] PCP - General Family Practice 09/11/13 Giselle Cortez, RN [address] [place] [id number] Splicing Technician 03/10/21 Mio Garcia [address] [place] [address] Solar Panel Technician Cardiology 07/20/[address]iko [address] [place] [address] Orthodontic Band Maker Internal Medicine 09/16/21 Cnc Supervisor Relationship Specialty Start Date End Date Fito Chavez MD [address] [place] [address] PCP - General Family Practice 09/11/13 Giselle Cortez, RN [address] [place] [address] Splicing Technician 03/10/21 Mio Garcia [address] [place] [address] Solar Panel Technician Cardiology 07/20/[address] [place] [address] Orthodontic Band Maker Internal Medicine 09/16/21 Cnc Supervisor Relationship Specialty Start Date End Date Fito Chavez MD [address] [facility] [place] [address] PCP - General Family Practice 09/11/13 Giselle Cortez RN [address] [place] [address] Splicing Technician 03/10/21 Mio Garcia [address] [place] [address] Solar Panel Technician Cardiology 07/20/[address]iko [address] [place] [address] Orthodontic Band Maker Internal Medicine 09/16/21 Cnc Supervisor Relationship Specialty Start Date End Date Fito Chavez MD [address] [facility] [place] [address] PCP - General Family Practice 09/11/13 Giselle Cortez, SALVADOR [address] [place] [address] Splicing Technician 03/10/21 Mio Garcia [address] [place] [address] Solar Panel Technician Cardiology 07/20/21 Kiko Slaughter [address] [place] [facility] [place] [address] Orthodontic Band Maker Internal Medicine 09/16/21 Cnc Supervisor Relationship Specialty Start Date End Date Fito Chavez MD [address] [facility] [place] [address] PCP - General Family Practice 09/11/13 Giselle Cortez RN [address] [place], [place] [id number] Splicing Technician 03/10/21 Mio Garcia [address] [place] [address] Solar Panel Technician Cardiology 07/20/21 Kiko Slaughter [address] [address] Orthodontic Band Maker Internal Medicine 09/16/21 Cnc Supervisor Relationship Specialty Start Date End Date Fito Chavez MD [address] [place] [address] PCP - General Family Practice 09/11/13 Giselle Cortez RN [address] [place] [address] Splicing Technician 03/10/21 Mio Garcia [address] [place] [address] Solar Panel Technician Cardiology 07/20/21 Kiko Slaughter [address] [place] [address] Orthodontic Band Maker Internal Medicine 09/16/21 Cnc Supervisor Relationship Specialty Start Date End Date Fito Chavez MD [address] [facility] [place] [address] PCP - General Family Practice 09/11/13 Giselle Cortez RN [address] [place] [address] Splicing Technician 03/10/21 Mio Garcia [address] [place] [address] Solar Panel Technician Cardiology 07/20/[address] [place] [address] Orthodontic Band Maker Internal Medicine 09/16/21 Cnc Supervisor Relationship Specialty Start Date End Date Fito Chavez MD [address] [facility] [place] [address] PCP - General Family Medicine 09/11/13 Giselle Cortez RN [address] [place] [address] Splicing Technician 03/10/21 Mio Garcia [address] [place] [address] Solar Panel Technician Cardiology 07/20/[address] [place] [address] Orthodontic Band Maker Internal Medicine 09/16/21 Cnc Supervisor Relationship Specialty Start Date End Date Fito Chavez MD [address] [facility] [place] [address] PCP - General Family Medicine 09/11/13 Mio Garcia [address] [place] [address] Solar Panel Technician Cardiology 07/20/[address]iko [address] [place] [address] Orthodontic Band Maker Internal Medicine 09/16/21 Lopez Brown RN [address] [place] [address] Splicing Technician Family Medicine 03/10/21 Cnc Supervisor Relationship Specialty Start Date End Date Fito Chavez MD [address] [facility] [place] [address] PCP - General Family Medicine 09/11/13 Mio Garcia [address] [place] [address] Solar Panel Technician Cardiology 07/20/21 Kiko Slaughter [address] [place] [address] Orthodontic Band Maker Internal Medicine 09/16/21 Lopez Brown RN [address] [place] [address] Splicing Technician Family Medicine 05/10/22 Cnc Supervisor Relationship Specialty Start Date End Date Fito Chavez MD [address] [facility] [place] [address] PCP - General Family Medicine 09/11/13 Mio Garcia [address] [place] [address] Solar Panel Technician Cardiology 07/20/[address]iko [address] [place] [address] Orthodontic Band Maker Internal Medicine 09/16/21 Lopez Brown RN [address] [place], [place] 6243831 Splicing Technician Family Medicine 05/10/22 Cnc Supervisor Relationship Specialty Start Date End Date Fito Chavez MD [address] [facility] [place] [address] PCP - General Family Medicine 09/11/13 Mio Garcia [address] [place] [address] Solar Panel Technician Cardiology 07/20/[address] [place] [address] Orthodontic Band Maker Internal Medicine 09/16/21 Lopez Brown, RN [address] [place], [place] 7590131 Splicing Technician Family Medicine 05/10/22 Cnc Supervisor Relationship Specialty Start Date End Date Fito Chavez MD [address] [facility] [place] [address] PCP - General Family Medicine 09/11/13 Mio Garcia [address] [place] [address] Solar Panel Technician Cardiology 07/20/21 Kiko Slaughter [address] [place] [address] Orthodontic Band Maker Internal Medicine 09/16/21 Lopez Brown, SALVADOR [address] [place] [address] Splicing Technician Family Medicine 05/10/22 Cnc Supervisor Relationship Specialty Start Date End Date Fito Chavez MD [address] [facility] [place] [address] PCP - General Family Medicine 09/11/13 Mio Garcia [address] [place] [address] Solar Panel Technician Cardiology 07/20/21 Kiko Slaughter [address] [place] [address] Orthodontic Band Maker Internal Medicine 09/16/21 Lopez Brown RN [address] [place], [place] 4948931 Splicing Technician Family Medicine 05/10/22 Cnc Supervisor Relationship Specialty Start Date End Date Fito Chavez MD [address] [facility] [place] [address] PCP - General Family Medicine 09/11/13 Mio Garcia [address] [place] [address] Solar Panel Technician Cardiology 07/20/21 Kiko Slaughter [address] [place] [address] Orthodontic Band Maker Internal Medicine 09/16/21 Lopez Brown RN [address] [place], [place] 2453731 Splicing Technician Family Medicine 05/10/22 Cnc Supervisor Relationship Specialty Start Date End Date Fito Chavez MD [address] [facility] [place] [address] PCP - General Family Medicine 09/11/13 Mio Garcia [address] [place] [address], [place] [address] Solar Panel Technician Cardiology 07/20/21 Kiok Slaughter [address] [place] [address] Orthodontic Band Maker Internal Medicine 09/16/21 Lopez Brown RN [address] [place], [place] 6285931 Splicing Technician Family Medicine 05/10/22 Cnc Supervisor Relationship Specialty Start Date End Date Fito Chavez MD [address] [facility] [place] [address] PCP - General Family Medicine 09/11/13 Mio Garcia [address] [place] [address] Solar Panel Technician Cardiology 07/20/21 Kiko Slaughter [address] [place] [address] Orthodontic Band Maker Internal Medicine 09/16/21 Lopez Brown, SALVADOR [address] [place] [address] Splicing Technician Family Medicine 05/10/22 Cnc Supervisor Relationship Specialty Start Date End Date Fito Chavez MD [address] [facility] [place] [address] PCP - General Family Medicine 09/11/13 Mio Garcia [address] [place] [address] Solar Panel Technician Cardiology 07/20/21 Kiko Slaughter [address] [place] [address] Orthodontic Band Maker Internal Medicine 09/16/21 Lopez Brown RN [address] [place] [address] Splicing Technician Family Medicine 05/10/22 Cnc Supervisor Relationship Specialty Start Date End Date Fito Chavez MD [address] [facility] [place] [address] PCP - General Family Medicine 09/11/13 Mio Garcia [address] [place] [address] Solar Panel Technician Cardiology 07/20/[address] [place] [address] Orthodontic Band Maker Internal Medicine 09/16/21 Lopez Brown RN [address] [place], [place] 4511831 Splicing Technician Family Medicine 05/10/22 Cnc Supervisor Relationship Specialty Start Date End Date Fito Chavez MD [address] [facility] [place] [address] PCP - General Family Medicine 09/11/13 Mio Garcia [address] [place] [address] Solar Panel Technician Cardiology 07/20/21 Kiko Slaughter [address] [place] [address] Orthodontic Band Maker Internal Medicine 09/16/21 Lopez Brown RN [address] [place], [place] 1054031 Splicing Technician [facility] Medicine 05/10/22 Cnc Supervisor Relationship Specialty Start Date End Date Fito Chavez MD [address] [facility] [place] [address] PCP - General Family Medicine 09/11/13 Mio Garcia [address] [place] [address], [place] [address] Solar Panel Technician Cardiology 07/20/21 Kiko Slaughter [address] [place] [address] Orthodontic Band Maker Internal Medicine 09/16/21 Lopez Brown RN [address] [place], [place] 0802131 Splicing Technician Family Medicine 05/10/22 Cnc Supervisor Relationship Specialty Start Date End Date Fito Chavez MD [address] [facility] [place] [address] PCP - General Family Medicine 09/11/13 Mio Garcia [address] [place] [address] Solar Panel Technician Cardiology 07/20/21 Kiko Slaughter [address] [place] [address] Orthodontic Band Maker Internal Medicine 09/16/21 Lopez Brown, SALVADOR [address] [place] [address] Splicing Technician Family Medicine 05/10/22 Cnc Supervisor Relationship Specialty Start Date End Date Fito Chavez MD [address] [place] [address] PCP - General Family Medicine 09/11/13 Mio Garcia [address] [place] [address] Solar Panel Technician Cardiology 07/20/21 Kiko Slaughetr [address] [place] [address] Orthodontic Band Maker Internal Medicine 09/16/21 Lopez Brown RN [address] [place] [address] Splicing Technician Family Medicine 05/10/22 Cnc Supervisor Relationship Specialty Start Date End Date Fito Chavez MD [address] [facility] [place] [address] PCP - General Family Medicine 09/11/13 Mio Garcia [address] [place] [address] Solar Panel Technician Cardiology 07/20/21 Kiko Slaughter [address] [place] [address] Orthodontic Band Maker Internal Medicine 09/16/21 Lopez Brown RN [address] [place], [place] 2111131 Splicing Technician Family Medicine 05/10/22 Cnc Supervisor Relationship Specialty Start Date End Date Fito Chavez MD [address] [facility] [place] [address] PCP - General Family Medicine 09/11/13 Mio Garcia [address] [place] [address] Solar Panel Technician Cardiology 07/20/21 Kiko Slaughter [address] [address] Orthodontic Band Maker Internal Medicine 09/16/21 Lopez Brown RN [address] [place], [place] 0776931 Splicing Technician [facility] Medicine 05/10/22 Cnc Supervisor Relationship Specialty Start Date End Date Fito Chavez MD [address] [facility] [place] [address] PCP - General Family Medicine 09/11/13 Mio Garcia [address] [place] [address] Solar Panel Technician Cardiology 07/20/21 Kiko Slaughter [address] [place] [address] Orthodontic Band Maker Internal Medicine 09/16/21 Lopez Brown RN [address] [place] [address] Splicing Technician Family Medicine 05/10/22 Cnc Supervisor Relationship Specialty Start Date End Date Fito Chavez MD [address] [facility] [place] [address] PCP - General Family Medicine 09/11/13 Mio Garcia [address] [place] [address] Solar Panel Technician Cardiology 07/20/21 Kiko Slaughter [address] [place] [address] Orthodontic Band Maker Internal Medicine 09/16/21 Lopez Brown, SALVADOR [address] [place] [id number] Splicing Technician Family Medicine 05/10/22 Cnc Supervisor Relationship Specialty Start Date End Date Fito Chavez MD [address] [facility] [place] [address] PCP - General Family Medicine 09/11/13 Mio Garcia [address] [place] [address] Solar Panel Technician Cardiology 07/20/21 Kiko Slaughter [address] [place] [address] Orthodontic Band Maker Internal Medicine 09/16/21 Lopez Brown RN [address] [place], [place] 2863731 Splicing Technician Family Medicine 05/10/22 Cnc Supervisor Relationship Specialty Start Date End Date Fito Chavez MD [address] [facility] [place] [address] PCP - General Family Medicine 09/11/13 Mio Garcia [address] [place] [address] Solar Panel Technician Cardiology 07/20/21 Kiko Slaughter [address] [place] [address] Orthodontic Band Maker Internal Medicine 09/16/21 Lopez Brown, SALVADOR [address] [place] [id number] Splicing Technician Family Medicine 05/10/22 Cnc Supervisor Relationship Specialty Start Date End Date Fito Chavez MD [address] [facility] [place] [address] PCP - General Family Medicine 09/11/13 Mio Garcia [address] [place] [address] Solar Panel Technician Cardiology 07/20/21 Kiko Slaughter [address] [place] [address] Orthodontic Band Maker Internal Medicine 09/16/21 Lopez Brown RN [address] [place] [id number] Splicing Technician Family Medicine 05/10/22 Cnc Supervisor Relationship Specialty Start Date End Date Fito Chavez MD [address] [facility] [place] [address] PCP - General Family Medicine 09/11/13 Mio Garcia [address] [place] [address] Solar Panel Technician Cardiology 07/20/21 Kiko Slaughter [address] [place] [address] Orthodontic Band Maker Internal Medicine 09/16/21 Lopez Brown RN [address] [place] [address] Splicing Technician Family Medicine 05/10/22 Cnc Supervisor Relationship Specialty Start Date End Date Fito Chavez MD [address] [facility] [place] [address] PCP - General Family Medicine 09/11/13 Mio Garcia [address] [place] [address] Solar Panel Technician Cardiology 07/20/21 Kiko Slaughter [address] [place] [address] Orthodontic Band Maker Internal Medicine 09/16/21 Lopez Brown RN [address] [place] [address] Splicing Technician Family Medicine 05/10/22 Cnc Supervisor Relationship Specialty Start Date End Date Fito Chavez MD [address] [place] [address] PCP - General Family Medicine 09/11/13 Mio Garcia [address] [place] [address] Solar Panel Technician Cardiology 07/20/21 Kiko Slaughter [address] [place] [address] Orthodontic Band Maker Internal Medicine 09/16/21 Lopez Brown RN [address] [place], [place] 8805131 Splicing Technician Family Medicine 05/10/22 Cnc Supervisor Relationship Specialty Start Date End Date Fito Chavez MD [address] [place] [address] PCP - General Family Medicine 09/11/13 Mio Garcia [address] [place] [address] Solar Panel Technician Cardiology 07/20/21 Kiko Slaughter [address] [place] [address] Orthodontic Band Maker Internal Medicine 09/16/21 Lopez Brown RN [address] [place], [place] 5808831 Splicing Technician Family Medicine 05/10/22 Cnc Supervisor Relationship Specialty Start Date End Date Fito Chavez MD [address] [place] [address] PCP - General Family Medicine 09/11/13 Mio Garcia [address] [place] [address] Solar Panel Technician Cardiology 07/20/21 Kiko Slaughter [address] [place] [address] Orthodontic Band Maker Internal Medicine 09/16/21 Lopez Brown RN [address] [place], [place] 4552331 Splicing Technician Family Medicine 05/10/22 Cnc Supervisor Relationship Specialty Start Date End Date Fito Chavez MD [address] [place] [address] PCP - General Family Medicine 09/11/13 Mio Garcia [address] [place] [address] Solar Panel Technician Cardiology 07/20/21 Kiko Slaughter [address] [place] [address] Orthodontic Band Maker Internal Medicine 09/16/21 Lopez Brown RN [address] [place] [id number] Splicing Technician Family Medicine 05/10/22 Cnc Supervisor Relationship Specialty Start Date End Date Fito Chavez MD [address] [place] [address] PCP - General Family Medicine 09/11/13 Mio Garcia [address] [place] [address] Solar Panel Technician Cardiology 07/20/21 Kiko Slaughter [address] [place] [address] Orthodontic Band Maker Internal Medicine 09/16/21 Lopez Brown RN [address] [place] [address] Splicing Technician Family Medicine 05/10/22 Cnc Supervisor Relationship Specialty Start Date End Date Fito Chavez MD [address] [place] [address] PCP - General Family Medicine 09/11/13 Mio Garcia [address] [place] [address] Solar Panel Technician Cardiology 07/20/21 Kiko Slaguhter [address] [place] [address] Orthodontic Band Maker Internal Medicine 09/16/21 Lopez Brown RN [address] [place], [place] 5567331 Splicing Technician Family Medicine 05/10/22 Cnc Supervisor Relationship Specialty Start Date End Date Fito Chavez MD [address] [place] [address] PCP - General Family Medicine 09/11/13 Mio Garcia [address] [place] [address] Solar Panel Technician Cardiology 07/20/21 Kiko Slaughter [address] [place] [address] Orthodontic Band Maker Internal Medicine 09/16/21 Lopez Brown RN [address] [place] [address] Splicing Technician Family Medicine 05/10/22 Cnc Supervisor Relationship Specialty Start Date End Date Fito Chavez MD [address] [place] [address] PCP - General Family Medicine 09/11/13 Mio Garcia MD [address] [place] [address] Solar Panel Technician Cardiology 07/20/21 Kiko Slaughter [address] [place] [address] Orthodontic Band Maker Internal Medicine 09/16/21 Lopez Brown RN [address] [place], [place] 6563331 Splicing Technician [facility] 05/10/22 Cnc Supervisor Relationship Specialty Start Date End Date Fito Chavez MD [address] [place] [address] PCP - General Family Medicine 09/11/13 Mio Garcia MD [address] [place] [address] Solar Panel Technician Cardiology 07/20/21 Kiko Slaughter [address] [place] [address] Orthodontic Band Maker Internal Medicine 09/16/21 Lopez Brown RN [address] [place] [address] Splicing Technician Family [facility] 05/10/22 Cnc Supervisor Relationship Specialty Start Date End Date Fito Chavez MD [address] [place] [address] PCP - General Family Medicine 09/11/13 Mio Garcia MD [address] [place] [address] Solar Panel Technician Cardiology 07/20/21 Kiko Slaughter [address] [place] [address] Orthodontic Band Maker Internal Medicine 09/16/21 Lopez Brown RN [address] [place] [address] Splicing Technician Family [facility] 05/10/22 Cnc Supervisor Relationship Specialty Start Date End Date Fito Chavez MD [address] [place], [place] 817091 PCP - General Family Medicine 09/11/13 Mio Garcia MD [address] [place], [place] [address] Solar Panel Technician Cardiology 07/20/21 Kiko Slaughter [address] [place] [address] Orthodontic Band Maker Internal Medicine 09/16/21 Lopez Brown, RN [address] [place] [address] Splicing Technician Family [facility] 05/10/22 FOR RECORDS PERTAINING TO PATIENTS WHO ARE OR HAVE BEEN ENROLLED IN A CHEMICAL DEPENDENCY/SUBSTANCEABUSE PROGRAM, SOME INFORMATION MAY BE OMITTED. This clinical summary was aggregated from multiple sources. Caution should be exercised in using it in the provision of clinical care. This summary normalizes information from multiple sources, and as a consequence, information in this document may materially change the coding, format and clinical context of patient data. In addition, data may be omitted in some cases. CLINICAL DECISIONS SHOULD BE BASED ON THE PRIMARY CLINICAL RECORDS. [employer] provides no warranty or guarantee of the accuracy or completeness of information in this document.
--- NOTE | 2023-07-05 12:33 | EX.ED.DYSGE1 ---
HPI History of Present Illness Chief Complaint: Shortness of Breath Informant: patient and family Narrative Narrative: 77-year-old male history of coronary artery disease, diabetes, COPD and atrial flutter status post ICD and CABG presenting to the emergency room with cough and dyspnea. Patient states for the past several days he has had a worsening cough. Family notes wheezing. He has been using Symbicort and a nebulizer once or twice a day. He denies any fever. States he has not required any prednisone recently. He reports being able to lay flat at night for sleep. He does wear oxygen at night. He reports feeling generally poor/worn down. That seems to be his biggest complaint in addition to the cough [facility] Medical History Allergic rhinitis Atherosclerotic heart disease of [place] coronary artery without angina pectoris Atrial flutter CAD (coronary artery disease) Carotid artery disease Congestive heart failure (CHF) COPD (chronic obstructive pulmonary disease) Coronary artery disease COVID-19 Diabetes Essential (primary) hypertension Femoral artery aneurysm, right Former smoker Hyperlipidemia, unspecified Hypertension ICD (implantable cardioverter-defibrillator) in place Influenza B Ischemic cardiomyopathy Myocardial infarct Near syncope Nicotine dependence in remission NSVT (nonsustained ventricular tachycardia) Obesity On home oxygen therapy BHARAT (obstructive sleep apnea) Pacemaker Peripheral vascular disease Shortness of breath Stroke/cerebrovascular accident T-cell lymphoma Home Medications ramipril 10 mg capsule 10 mg PO BID blood pressure 12/25/13 [History Last Taken 02/13/21] fluticasone propionate 50 mcg/actuation nasal spray,suspension (Flonase Allergy Relief) 50 mcg intranasal QDAY PRN Congestion 06/25/17 [History Last Taken 02/13/21] atorvastatin 80 mg tablet 80 mg PO QHS cholesterol 08/14/17 [History Last Taken 02/13/21] ipratropium 0.5 mg-albuterol 3 mg (2.5 mg base)/3 mL nebulization soln 3 ml inhalation Q4HWA.RT PRN Sob &/Or Wheezing 09/03/18 [History Last Taken 05/06/20] isosorbide mononitrate 30 mg tablet,extended release 24 hr 30 mg PO BID blood pressure 10/28/19 [History Last Taken 02/13/21] montelukast 10 mg tablet 10 mg PO DAILY allergy 02/17/20 [History Last Taken 02/13/21] amlodipine 10 mg tablet 10 mg PO DAILY blood pressure 05/07/20 [History Last Taken 02/13/21] metformin 500 mg tablet 500 mg PO BID blood glucose 06/28/20 [History Last Taken 02/13/21] nitroglycerin 0.4 mg sublingual tablet 0.4 mg sublingual Q5M PRN Chest Pain #25 tabs 01/03/21 [Rx Last Taken Unknown] albuterol sulfate 2.5 mg/3 mL (0.083 %) solution for nebulization 2.5 mg (3 mL) inhalation Q4H PRN #25 vials 06/17/22 [Rx Last Taken Unknown] amiodarone 200 mg tablet 200 mg PO DAILY heart 07/31/22 [History Last Taken Unknown] apixaban 5 mg tablet (Eliquis) 5 mg PO BID #180 tabs 10/14/22 [Rx Last Taken Unknown] budesonide-formoterol HFA 160 mcg-4.5 mcg/actuation aerosol inhaler (Symbicort) 2 puff inhalation Q12H #3 device 02/09/23 [Rx Last Taken Unknown] carvedilol 12.5 mg tablet 12.5 mg PO BID 04/23/23 [History Last Taken Unknown] acetaminophen 500 mg tablet (Tylenol Extra Strength) 1,000 mg (2 x 500 mg) PO Q8H PRN PRN Pain #30 tabs 04/26/23 [Rx Last Taken 02/14/21] prednisone 20 mg tablet 40 mg (2 x 20 mg) PO DAILY 6 days #12 tabs 04/26/23 [Rx Last Taken Unknown] furosemide 40 mg tablet (Lasix) 40 mg PO BID #10 tabs 07/05/23 [Rx Last Taken Unknown] prednisone 20 mg tablet 40 mg (2 x 20 mg) PO DAILY #10 TABLETS 07/05/23 [Rx Last Taken Unknown] Allergy/AdvReac Type Severity Reaction Status Date / Time ciprofloxacin [From Cipro] Allergy Swelling Verified 07/05/23 11:33 ciprofloxacin HCl Allergy hand Verified 07/05/23 11:33 [From Cipro] Swelling Sulfa (Sulfonamide Allergy Unknown Verified 07/05/23 11:33 Antibiotics) Family History Father Heart disease Cancer Prostate Brother Cancer prostate cancer Surgical History Aortocoronary bypass status (~05/17/12) h/o left TKA History of coronary artery stent placement History of left knee replacement History of permanent cardiac pacemaker placement History of tonsillectomy Hx of CABG Hx of CABG Presence of biventricular implantable cardioverter-defibrillator (ICD) (04/22/12) Presence of other cardiac implants and grafts Presence of stent in coronary artery Social History household members: none Smoking Status: Former smoker pack-years: 73 how long ago did patient quit smokin years ago second hand exposure: No alcohol intake: current alcohol intake frequency: holidays/special occasions only Alcohol type: beer substance use type: does not use caffeine: Yes Type: carbonated beverages Number of servings: 1 ROS ROS ED Constitutional Constitutional ED: Reports chills; Denies fever(s) or weight loss Eyes Eyes: Denies change in vision or diplopia ENT ENT ED: Denies ear pain, rhinorrhea or sore throat Cardiovascular Cardiovascular: Denies chest pain, orthopnea, palpitations or racing heartbeat Respiratory/Chest Respiratory/Chest: Reports cough, dyspnea, dyspnea on exertion and sputum; Denies orthopnea Gastrointestinal Gastrointestinal: Denies abdominal pain, diarrhea, nausea or vomiting Genitourinary Genitourinary ED: Denies dysuria, hematuria or urinary frequency Musculoskeletal Musculoskeletal: Denies arthralgias or myalgias Integumentary Denies abscess or rash Neurologic Neurologic: Denies headache(s) or weakness Psychiatric Psychiatric: Denies anxiety, depression, suicidal ideation or suicidal thoughts Endocrine Endocrinology: Denies polydipsia, polyphagia or polyuria Allergic/Immunologic Allergic/Immunologic ED: Denies mouth swelling, tongue swelling or urticaria EXAM Physical Exam Const Vital Signs: 07/05/23 11:33 07/05/23 12:52 07/05/23 12:54 Temperature 99.5 F H 99.2 F H Temperature Source Temporal Oral Pulse Rate 71 66 Respiratory Rate 20 H 16 Respiratory Effort Short of Breath Blood Pressure 87/62 L 133/82 H Blood Pressure Mean 70 99 Pulse Ox 95 95 Oxygen Delivery Method Room Air Room Air Room Air 07/05/23 14:00 Temperature Temperature Source Pulse Rate Respiratory Rate Respiratory Effort Blood Pressure 143/87 H Blood Pressure Mean 105 Pulse Ox Oxygen Delivery Method Positive well nourished, well developed and obese General Appearance ED: well developed Nutritional Appearance: obese HEENT Reports normocephalic, head/scalp atraumatic and moist mucous membranes Eyes PERRL and EOMs intact bilaterally Neck no lymphadenopathy, supple and no JVD Resp normal respiratory effort Auscultation: rales Cardio regular rate, regular rhythm and no murmurs GI normal to inspection, nondistended, normoactive bowel sounds and non-tender Palpation: soft Back/Spine no CVA tenderness and normal ROM Extremity normal to inspection General Extremety ED: Yes edema General Extremity: edema bilateral lower extremity Details: moderate Neuro oriented x3 and CN's II-XII intact bilaterally Sensorium / Orientation: alert Motor Exam: strength 5/5 throughout Psych mental status grossly normal Mood & Affect: Negative for depressed or tearful Skin no rashes or lesions noted and no wounds MDM MDM MDM Narrative Medical decision making narrative: Patient ambulated here in the department on room air. 92% but increased work of breathing when he got back to the bed. My depend interpretation of the chest x-ray is mild vascular congestion no definitive infiltrate. White count of 11. Natruretic peptide to 25.6 troponin of 23. Glucose 131. EKG is nonischemic. Patient does have supplemental oxygen at home. Patient was advised that should he worsen he may necessitate admission. At this point he is comfortable trying treatment at home to include the addition of twice daily Lasix and once daily prednisone. He is to be using his nebulizer at least every 6 days. History & Record Review Discussion w/independent historian: Patient and Family Additional record(s) reviewed:: Prior outpatient record and Prior labs Lab Data Attestation: I reviewed the patient's lab results. Labs: Laboratory Results - last 24 hr 07/05/23 12:47 WBC 11.0 RBC 4.66 Hgb 14.1 Hct 43.3 MCV 92.9 MCH 30.3 MCHC 32.6 RDW Std Deviation 46.3 H RDW Coeff of Kip 13.6 Plt Count 197 MPV 10.1 Immature Gran % (Auto) 0.700 Neut % (Auto) 76.2 H Lymph % (Auto) 13.1 L [place] % (Auto) 7.4 Eos % (Auto) 1.8 Baso % (Auto) 0.8 Absolute Neuts (auto) 8.4 H Absolute Lymphs (auto) 1.44 Nucleated RBC % 0 Sodium 141 Potassium 3.8 Chloride 108 H Carbon Dioxide 27.0 Anion Gap 6 BUN 16 Creatinine 1.03 Estim Creat Clear Calc 54.37 Est GFR (MDRD) Af Amer 89 Est GFR (MDRD) Non-Af 74 BUN/Creatinine Ratio 15.5 Glucose 131 H Calcium 8.3 L Total Bilirubin 1.50 H Direct Bilirubin 0.36 H AST 15 ALT 23 Alkaline Phosphatase 109 Troponin I High Sens 23 B-Natriuretic Peptide 225.6 H Total Protein 6.6 Albumin 3.2 Globulin 3.4 Radiography Diagnostic Testing: Clinical Impression(s) from Imaging Studies Chest X-Ray 07/05/23 12:38 IMPRESSION: Stable chest with no acute superimposed finding. Electronically Signed: Tavo Villalta MD at 13:08 EST Reading Location ID and State: [address] [place] [address] , Service support , EKG Initial EKG: Attestation: I personally reviewed and interpreted this EKG as follows: Comments: Atrially sensed rhythm with a ventricular rate of 62 bpm. Discharge Plan Triage Chief Complaint: Shortness of Breath ED Provider: Quintin Mcmahon Dx/Rx/DC Orders Clinical Impression: Ischemic cardiomyopathy, COPD (chronic obstructive pulmonary disease), [place] (dyspnea on exertion), CHF (congestive heart failure) Instructions: ED Heart Failure, Congestive (CHF) Prescriptions: New prednisone 20 mg tablet 40 mg PO DAILY Qty: 10 0RF furosemide [Lasix] 40 mg tablet 40 mg PO BID Qty: 10 0RF No Action fluticasone propionate [Flonase Allergy Relief] 50 mcg/actuation spray,suspension 50 mcg INTRANASAL QDAY PRN (Reason: Congestion) ipratropium-albuterol 0.5 mg-3 mg(2.5 mg base)/3 mL solution for nebulization 3 ml INHALATION Q4HWA.RT PRN (Reason: Sob &/Or Wheezing) isosorbide mononitrate 30 mg tablet extended release 24 hr 30 mg PO BID montelukast 10 mg tablet 10 mg PO DAILY nitroglycerin 0.4 mg tablet, sublingual 0.4 mg SUBLINGUAL Q5M PRN (Reason: Chest Pain) Qty: 25 3RF metformin 500 mg tablet 500 mg PO BID amiodarone 200 mg tablet 200 mg PO DAILY ramipril 10 MG capsule 10 mg PO BID atorvastatin 80 MG tablet 80 mg PO QHS amlodipine 10 MG tablet 10 mg PO DAILY albuterol sulfate 2.5 mg /3 mL (0.083 %) solution for nebulization 2.5 mg inhalation Q4H PRN Qty: 25 0RF Rx Instructions: Use q4 hours and PRN for wheezing carvedilol 12.5 mg tablet 12.5 mg PO BID prednisone 20 mg tablet 40 mg PO DAILY 6 Days Qty: 12 0RF acetaminophen [Tylenol Extra Strength] 500 mg Tablet 1,000 mg PO Q8H PRN PRN (Reason: Pain) Qty: 30 0RF Eliquis 5 mg tablet 5 mg PO BID Qty: 180 3RF budesonide-formoterol [Symbicort] 160-4.5 mcg/actuation HFA aerosol inhaler 2 puff INHALATION Q12H Qty: 3 3RF Primary Care Provider: Fito Velez Referrals: Fito Velez MD [Primary Care Provider] - 1 Week Activity Restrictions/Additional Instructions: You are being placed on prednisone 40 mg once a day for 5 days. Please use your nebulizer at least once every 6 hours over the next 3 days. You may use your oxygen while walking or as needed during the day if needed. You are being placed on twice daily Lasix (a water pill). Please expect to see an increase in urination. I do not see a pneumonia on your chest x-ray today. Please monitor for fever change in cough or worsening symptoms. If need be please return to emergency Disposition Disposition: Home, Self Care
--- NOTE | 2023-07-05 12:38 | RAD_ITS ---
STUDY: X-RAY CHEST REASON FOR EXAM: Male, 77 years old. Cough. TECHNIQUE: Single frontal view of the chest. COMPARISON: April 23, 2023 FINDINGS: Stable mild diffuse interstitial pattern with a basilar predominance. There is no demonstrated pleural abnormality. Cardiomegaly, sternotomy wires and dual lead cardiac pacer, unchanged. Normal mediastinum and debbie. Normal visualized pulmonary arteries. Normal visualized aortic arch and descending thoracic aorta. Normal visualized thoracic spine. Normal visualized ribs, clavicles, and shoulders. No abnormality of the visualized soft tissue structures of the upper abdomen. RAD/Chest 1 View (Portable) IMPRESSION: Stable chest with no acute superimposed finding. Electronically Signed: Tavo Villalta MD at 13:08 EST ,
[2023-07-05 12:52] VITALS: O2SAT 95
[2023-07-05 12:52] LABS: Absolute Lymphocyte Count 1.44 X10^3/uL (0.83-4.51); Absolute Neutrophil Count 8.4 X10^3/uL (2.0-7.7); Basophil# 0.09 X10^3/uL; Basophil% 0.8 % (0-1); Eosinophils% 1.8 % (0-5); Hematocrit 43.3 % (40-54); Hemoglobin 14.1 g/dL (13.0-16.5); Lymphocyte # 1.44 X10^3/ul (0.83-4.51); Lymphocyte % 13.1 % (19-41); Mean Corp Hgb Conc 32.6 g/dL (32-36); Mean Corpuscular Hgb 30.3 pg (27.0-32.0); Mean Corpuscular Volume 92.9 fL (80-94); Mean Platelet Vol. 10.1 fl (6.2-12.0); Monocyte# 0.81 X10^3/uL; Monocyte% 7.4 % (0-10); NRBC Flagged by Analyzer 0 % (0-5); Neutrophil # 8.35 X10^3/uL (2.7-7.7); Neutrophil % 76.2 % (47-70); Platelet Count 197 K/mm3 (150-450); RBC Distribution Width CV 13.6 % (11.6-14.6); RBC Distribution Width SD 46.3 fl (35.1-43.9); Red Blood Count 4.66 M/mm3 (4.6-6.2)
[2023-07-05 12:54] VITALS: BP 133/82; PULSE 66; RESP 16; TEMP 37.3; O2SAT 95
[2023-07-05 13:11] LABS: AST(SGOT) 15 U/L (15-37); Alanine Aminotransfer ALT/SGPT 23 U/L (16-61); Albumin, Serum 3.2 g/dL (3.2-5.0); Alkaline Phosphatase 109 U/L (45-117); Anion Gap 6 (5-15); BNP,B-Type NATRIURETIC PEPTIDE 225.6 pg/mL (0-100); BUN 16 mg/dL (7-18); BUN/Creat Ratio 15.5 RATIO (10-20); Bilirubin, Direct 0.36 mg/dL (0.00-0.30); Calcium,Total 8.3 mg/dL (8.5-10.1); Chloride 108 mmol/L (98-107); Creatinine, Serum 1.03 mg/dL (0.70-1.30); EST Glomerular Filtration Rate 74 mL/min (>60); Est Glom Filt Rate - Afr Amer 89 mL/min (>60); Estimated Creatinine Clearance 54.37 ml/min; Globulin 3.4 g/dL (2.2-4.2); Glucose 131 mg/dL (74-106); Potassium 3.8 mmol/L (3.5-5.1); Protein, Total 6.6 g/dL (6.4-8.2); Sodium Level 141 mmol/L (136-145); Troponin-I HS 23 pg/mL (3.0-78.0)
[2023-07-05 13:16] VITALS: O2SAT 96
[2023-07-05 14:00] VITALS: BP 143/87
== END 2023-07-05 14:51 | disposition home or self-care (01) ==
PROVIDERS: Emergency Provider Emergency Medicine; PCP Family Medicine; Visit Provider Emergency Medicine
DX: R06.02 Shortness of breath (principal); J44.9 Chronic obstructive pulmonary disease, unspecified; I11.0 Hypertensive heart disease with heart failure; I50.9 Heart failure, unspecified; E11.9 Type 2 diabetes mellitus without complications; R06.09 Other forms of dyspnea; I25.5 Ischemic cardiomyopathy; I25.10 Atherosclerotic heart disease of native coronary artery without angina pectoris; Z87.891 Personal history of nicotine dependence; Z95.1 Presence of aortocoronary bypass graft; E78.5 Hyperlipidemia, unspecified; I25.2 Old myocardial infarction; Z95.0 Presence of cardiac pacemaker; Z86.73 Personal history of transient ischemic attack (TIA), and cerebral infarction without residual deficits; Z79.899 Other long term (current) drug therapy; Z79.51 Long term (current) use of inhaled steroids; Z79.84 Long term (current) use of oral hypoglycemic drugs; Z79.01 Long term (current) use of anticoagulants; Z95.5 Presence of coronary angioplasty implant and graft; Z96.652 Presence of left artificial knee joint; Z99.81 Dependence on supplemental oxygen; R05.9 Cough, unspecified
CPT/HCPCS: 71045; 80048; 80076; 83880; 84484; 85025; 87631; 93005; 99284; A4216

== ENCOUNTER → 2023-07-31 | Outpatient (CLI) | payer MEDICARE, OTHER, SELFPAY ==
--- OUTSIDE RECORDS SUMMARY | 2023-07-31 12:20 | XMS RPT_ITS | CCD ---
Author Name Unknown Address [id number] [place] [address] Organization [facility] Care Team Providers Care Business Services Officer Name Role Phone Kiko Slaughter DO Unavailable Adilson FRANCO, Razia Haque Unavailable Razia De Anda RN Unavailable Mio Garcia MD Unavailable SALVADOR Penaloza, Samantha Xiong Unavailable Unavailable Radha VALDEZ, Angella S Unavailable RITA Combs, Razia Xiong Unavailable DeFinis, Harumi Y Unavailable Unavailable Sbeas Guadarrama Unavailable Unavailable Merced Bedoya Unavailable Unavailable Tess Lange LPN Unavailable Unavaila caterina Penaloza RN, Samantha M Unavailable Unavailable SALVADOR Penaloza, Samantha Xiong Unavailable Unavailable SALVADOR Penaloza, Samantha Xiong Unavailable Unavailable Jevon العراقي Unavailable Unavailable Jevon العراقي Unavailable Unavailable Lilo Cade Unavailable Unavailable Merced Bedoya Unavailable Unavailable RITA Combs, Razia Xiong Unavailable Sebas Guadarrama Unavailable Unavailable Kiko Slaughter DO Unavailable Breanna Ribera Unavailable Unavailable Michelle Watson Unavailable Unavailable Fito Chavez Unavailable Unavailable Ceci Bradley Unavailable Unavailable Breanna Ribera PA-C Unavailable Unavailable Michelle Watson PT Unavailable Unavailable Fito Chavez Unavailable Unavailable Fito Chavez MD Primary Care Provider Dana FRANCO, Giselle Agarwal Unavailable Unavail able Mio Garcia Unavailable Kiko Slaughter Unavailable Dana RN, Giselle Agarwal Unavailable Scott MEYER, Fito Fernandes Primary Care Provider Dana FRANCO, Giselle Agarwal Unavailable Mio Garcia Unavailable Kiko Slaughter Unavailable Scott MEYER, Fito Fernandes Primary Care Provider Dana RN, Giselle Agarwal Unavailable [phone] Mio Garcia Unavailable Kiko Slaughter Unavailable Kevin FRANCO, Lopez Unavailable [phone] Scott MEYER, Fito Fernandes Primary Care Provider Mio Garcia Unavailable Kiko Slaughter Unavailable Kevin FRANCO, Lopez Unavailable MAYLIN PIMENTEL Referring Unavailable FITO CHAVEZ Primary Care Unavailable Mio Garcia Unavailable Kiko Slaughter Unavailable Kevin FRANCO, Lopez Unavailable [phone] JAMISON RUVALCABA Attending Unavailable FITO CHAVEZ A Primary Care Unavailable FITO CHAVEZ A Referring Unavailable SCOTTFITO PAN A Primary Care Unavailable SCOTTABRIL PANREY A Referring Unavailable SCOTTABRIL PANREY A Primary Care Unavailable SCOTTABRIL PANREY A Primary Care Unavailable JOEY RODRIGUEZ Attending Unava ilMio Hwang MD Unavailable FITO CHAVEZ Primary Care Unavailable EVERETT CARDENAS Referring Unavailable RADHA MARINA Attending Unavailable RADHA MARINA Referring Unavailable FITO CHAVEZ A Primary Care Unavailable AZUL PARDO Attending Unavailable RADHA MARINA Referring Unavailable FITO CHAVEZ A Primary Care Unavailable RADHA MARINA Referring Unavailable SCOTT, FITO A Primary Care Unavailable AZUL PARDO Attending Unavailable SCOTT, FITO A Primary Care Unavailable SCOTT, FITO A Referring Unavailable AZUL PARDO Referring Unavailable SCOTT, FITO A Primary Care Unavailable RADHA MARINA Referring Unavailable SCOTT, FITO A Primary Care Unavailable AZUL PARDO Referring Unavailable MICHELLE MIKE Attending Unavailable SOCTT, FITO A Primary Care Unavailable JEVON MILLARD Attending Unavailable MICHELLE MIKE Referring Unavailable SCOTT, FITO A Primary Care Unavailable AZUL PARDO Attending Unavailable SCOTT, FITO A Primary Care Unavailable MAYLIN PIMENTEL Attending Unavailable SCOTT, FITO A Primary Care Unavailable MAYLIN PIMENTEL Referring Unavailable NHI GUO Attending Unavailable SCOTT, FITO A Primary Care Unavailable RADHA MARINA Referring Unavailable RADHA MARINA Attending Unavailable SCOTT, FITO A Primary Care Unavailable MAYLIN PIMENTEL Attending Unavailable SCOTT, FITO A Primary Care Unavailable MAYLIN PIMENTEL Referring Unavailable SCOTT, FITO A Primary Care Unavailable RADHA MARINA Referring Unavailable SCOTT, FITO A Primary Care Unavailable MAYLIN PIMENTEL Attending Unavailable SCOTT, FITO A Primary Care Unavailable MAYLIN PIMENTEL Attending Unavailable MAYLIN PIMENTEL Referring Unavailable SCOTT, FITO A Primary Care Unavailable MAYLIN PIMENTEL Attending Unavailable SCOTT, FITO A Primary Care Unavailable SCOTT, FITO A Referring Unavailable RADHA MARINA Attending Unavailable RADHA MARINA Referring Unavailable SCOTT, FITO A Primary Care Unavailable RADHA MARINA Referring Unavailable SCOTT, FITO A Primary Care Unavailable RADHA MARINA Referring Unavailable SCOTT, FITO A Primary Care Unavailable RENE, MAYLIN Referring Unavailable SCOTT, FITO A Primary Care Unavailable MAYLIN PIMENTEL Referring Unavailable SCOTT, FITO A Primary Care Unavailable MAYLIN PIMENTEL Referring Unavailable SCOTT, FITO A Primary Care Unavailable SCOTT, FITO A Attending Unavailable SCOTT, FITO A Primary Care Unavailable SCOTT, FITO A Referring Unavailable SCOTT, FITO A Primary Care Unavailable SCOTT, FITO A Referring Unavailable SCOTT, FITO A Primary Care Unavailable SCOTT, FITO A Referring Unavailable JEOVN MILLARD Attending Unavailable MICHELLE MIKE Referring Unavailable SCOTT, FITO A Primary Care Unavailable MAYLIN PIMENTEL Referring Unavailable SCOTT, FITO A Primary Care Unavailable FITO CHAVEZ Primary Care Unavailable Allergies Allergy Classification Reported Allergen(s) Allergy Type Date of Onset Reaction(s) Facility (20 sources) ciprofloxacin drug allergy 6 Hives [facility] Work Phone: (19 sources) Sulfonamides (Antibiotic) drug allergy 6 Unknown [facility] Work Phone: (20 sources) ciprofloxacin; Translations: [ciprofloxacin] Drug Allergy 9 Swelling [facility] Repository (4 sources) Sulfonamides (Antibiotic); Translations: [sulfa drugs] Propensity to adverse reactions to drug (disorder) [facility] Repository (20 sources) Sulfonamides (Antibiotic); Translations: [SULFA (SULFONAMIDE ANTIBIOTICS)] Propensity to adverse reactions to drug 9 Unknown [facility] Work Phone: Medications Current Medications Medication Drug [...] Translations: [Mixed hyperlipidemia] Onset: 09-11-2013 10-25-2015 Chronic E Codes: Fall (2 sources) Fall; Translations: [Unspecified fall, initial encounter] Episodic Esophageal disorders (20 sources) Gastroesophageal reflux disease [...] source) Cough; Translations: [Acute cough] Episodic Other nervous system disorders (20 sources) [...] radiculopathy, lumbar region] Onset: 06-13-2013 03-01-2016 Chronic Spondylosis; intervertebral disc disorders; other back problems (20 sources) Spinal stenosis of lumbar region; Translations: [Spinal stenosis, lumbar region without neurogenic claudication] Onset: 02-20-2013 03-01-2016 Episodic Unclassified (20 sources) Obstructive sleep apnea syndrome; [...] Subacute cough; Translations: [Subacute cough] Onset: 02-13-2023 Viral infection (1 source) Disease caused by 2019-nCoV; Translations: [COVID-19] 06-04-2023 Episodic Viral infection (2 sources) COVID-19; Translations: [COVID-19] Onset: 04-22-2023 Past or Other Problems Problem Classification Problem Date Documented Date Episodic/Chronic Blindness and vision defects (20 sources) Regular astigmatism of right eye; Translations: [Regular astigmatism, right eye] Onset: 10-27-2020 10-27-2020 Episodic Genitourinary symptoms and ill-defined conditions (20 [...] (20 sources) Drug therapy finding; 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] Onset: 03-24-2017 03-24-2017 Episodic Other aftercare (1 source) Other [facility] (current) drug therapy; Translations: [On amiodarone therapy] Onset: 01-04-2021 Episodic Other circulatory disease (20 sources) History [...] 05-23-2018 06-03-2019 Episodic Other lower respiratory disease (2 sources) Chronic cough; Translations: [Chronic cough] Onset: 02-13-2023 03-19-2023 Episodic Other lower respiratory disease (1 source) Shortness of breath; Translations: [SOB (shortness of breath)] Onset: 03-30-2023 Episodic Other male genital disorders (20 sources) [...] right wrist; Translations: [Right wrist pain] Onset: 02-14-2023 Episodic Other screening for suspected conditions (not [...] skin; Translations: [Cellulitis, unspecified] Onset: 11-13-2022 Episodic Syncope (20 sources) Cardiac syncope; Translations: [Syncope and collapse] Onset: 09-27-2021 09-27-2021 Episodic NEGATED: Highlighted row has not occurred!Residual codes; unclassified (20 sources) Disease Episodic Results Test Name Value Interpretation Reference Range Facil ity Vital Signs Date Time Vital Sign Value Performing Clinician Facility 06-04-2023 12:54-0500 Body weight 92.08 kg Azul Pardo APRN.SENIOR QUANTITY SURVEYOR Work Phone: [facility] 06-04-2023 12:54-0500 Diastolic blood pressure 74 mm[Hg] Azul Pardo DIRECTOR OF PLANNING.SENIOR QUANTITY SURVEYOR Work Phone: [facility] 06-04-2023 12:54-0500 Heart rate 70 /min Azul Pardo DIRECTOR OF PLANNING.SENIOR QUANTITY SURVEYOR Work Phone: [facility] 06-04-2023 12:54-0500 Respiratory rate 18 /min Azul Pardo DIRECTOR OF PLANNING.SENIOR QUANTITY SURVEYOR Work Phone: [facility] 06-04-2023 12:54-0500 SaO2% (BldA) [Mass fraction] 98 % Azul Pardo DIRECTOR OF PLANNING.SENIOR QUANTITY SURVEYOR Work Phone: [facility] 06-04-2023 12:54-0500 Systolic blood pressure 138 mm[Hg] Azul Pardo DIRECTOR OF PLANNING.SENIOR QUANTITY SURVEYOR Work Phone: [facility] 03-30-2023 11:32-0400 Diastolic blood pressure 68 mm[Hg] Fito Chavez MD Work Phone: [facility] 03-30-2023 11:32-0400 Systolic blood pressure 113 mm[Hg] Fito Chavez MD Work Phone: [facility] 03-30-2023 11:00-0400 Body weight 92.99 kg Fito Chavez MD Work Phone: [facility] 03-30-2023 11:00-0400 Heart rate 80 /min Fito Chavez MD Work Phone: [facility] 03-30-2023 11:00-0400 Respiratory rate 16 /min Fito Chavez MD Work Phone: [facility] 03-30-2023 11:00-0400 SaO2% (BldA) [Mass fraction] 93 % Fito Chavez MD Work Phone: [facility] 03-19-2023 13:40-0400 Body temperature 97.5 [degF] Maylin Pimentel PA-C Work Phone: [facility] 03-19-2023 13:40-0400 Body weight 93.89 kg Maylin Pimentel PA-C Work Phone: [facility] 03-19-2023 13:40-0400 Diastolic blood pressure 72 mm[Hg] Maylin Pimentel PA-C Work Phone: [facility] 03-19-2023 13:40-0400 Heart rate 66 /min Maylin Pimentel PA-C Work Phone: [facility] 03-19-2023 13:40-0400 Respiratory rate 18 /min Maylin Pimentel PA-C Work Phone: [facility] 03-19-2023 13:40-0400 SaO2% (BldA) [Mass fraction] 92 % Maylin Pimentel PA-C Work Phone: [facility] 03-19-2023 13:40-0400 Systolic blood pressure 122 mm[Hg] Maylin Pimentel PA-C Work Phone: [facility] 02-14-2023 15:03-0400 Body temperature 97.5 [degF] Everett Cardenas APRN.SENIOR QUANTITY SURVEYOR Work Phone: [facility] 02-14-2023 15:03-0400 Body weight 94.8 kg Everett Cardenas APRN.SENIOR QUANTITY SURVEYOR Work Phone: [facility] 02-14-2023 15:03-0400 Diastolic blood pressure 60 mm[Hg] Everett Cardenas APRN.SENIOR QUANTITY SURVEYOR Work Phone: [facility] 02-14-2023 15:03-0400 Heart rate 68 /min Everett Cardenas APRN.SENIOR QUANTITY SURVEYOR Work Phone: [facility] 02-14-2023 15:03-0400 Respiratory rate 16 /min Everett Cardenas APRN.SENIOR QUANTITY SURVEYOR Work Phone: [facility] 02-14-2023 15:03-0400 SaO2% (BldA) [Mass fraction] 95 % Everett Cardenas APRN.SENIOR QUANTITY SURVEYOR Work Phone: [facility] 02-14-2023 15:03-0400 Systolic blood pressure 108 mm[Hg] Everett Cardenas APRN.SENIOR QUANTITY SURVEYOR Work Phone: [facility] 01-11-2023 11:38-0400 Body temperature 97.3 [degF] Maylin Pimentel PA-C Work Phone: [facility] 01-11-2023 11:38-0400 Body weight 95.71 kg Maylin Pimentel PA-C Work Phone: [facility] 01-11-2023 11:38-0400 Diastolic blood pressure 56 mm[Hg] Maylin Pimentel PA-C Work Phone: [facility] 01-11-2023 11:38-0400 Heart rate 70 /min Maylin Pimentel PA-C Work Phone: [facility] 01-11-2023 11:38-0400 Respiratory rate 18 /min Maylinarleth Pimentel PA-C Work Phone: [facility] 01-11-2023 11:38-0400 Systolic blood pressure 96 mm[Hg] Maylin Pimentel PA-C Work Phone: [facility] 12-26-2022 10:59-0400 Diastolic blood pressure 62 mm[Hg] Radha Marina DO Work Phone: [facility] 12-26-2022 10:59-0400 Heart rate 65 /min Radha Marina DO Work Phone: [facility] 12-26-2022 10:59-0400 SaO2% (BldA) [Mass fraction] 94 % Radha Marina DO Work Phone: [facility] 12-26-2022 10:59-0400 Systolic blood pressure 112 mm[Hg] Radha Marina DO Work Phone: [facility] 11-13-2022 10:01-0400 Body height 170.2 cm Nhi Guo MD Work Phone: [facility] 11-13-2022 10:01-0400 Body temperature 97.3 [degF] Nhi Guo MD Work Phone: [facility] 11-13-2022 10:01-0400 Body weight 95.25 kg Nhi Guo MD Work Phone: [facility] 11-13-2022 10:01-0400 Diastolic blood pressure 70 mm[Hg] Nhi Guo MD Work Phone: [facility] 11-13-2022 10:01-0400 Heart rate 74 /min Nhi Guo MD Work Phone: [facility] 11-13-2022 10:01-0400 SaO2% (BldA) [Mass fraction] 97 % Nhi Guo MD Work Phone: [facility] 11-13-2022 10:01-0400 Systolic blood pressure 142 mm[Hg] Nhi Guo MD Work Phone: [facility] 11-03-2022 12:53-0400 Body temperature 97 [degF] Maylin Pimentel PA-C Work Phone: [facility] 11-03-2022 12:53-0400 Body weight 94.8 kg Maylin Pimentel PA-C Work Phone: [facility] 11-03-2022 12:53-0400 Diastolic blood pressure 70 mm[Hg] Maylin Pimentel PA-C Work Phone: [facility] 11-03-2022 12:53-0400 Heart rate 70 /min Maylin Pimentel PA-C Work Phone: [facility] 11-03-2022 12:53-0400 Respiratory rate 18 /min Maylin Pimentel PA-C Work Phone: [facility] 11-03-2022 12:53-0400 Systolic blood pressure 122 mm[Hg] Maylin Pimentel PA-C Work Phone: [facility] 10-23-2022 08:50-0400 Body weight 94.8 kg Azulsowmya Pardo DIRECTOR OF PLANNING.SENIOR QUANTITY SURVEYOR Work Phone: [facility] 10-23-2022 08:50-0400 Diastolic blood pressure 68 mm[Hg] Azul Maryoble DIRECTOR OF PLANNING.SENIOR QUANTITY SURVEYOR Work Phone: [facility] 10-23-2022 08:50-0400 Heart rate 66 /min Azul Maryoble DIRECTOR OF PLANNING.SENIOR QUANTITY SURVEYOR Work Phone: [facility] 10-23-2022 08:50-0400 Respiratory rate 18 /min Azul Maryoble DIRECTOR OF PLANNING.SENIOR QUANTITY SURVEYOR Work Phone: [facility] 10-23-2022 08:50-0400 Systolic blood pressure 120 mm[Hg] Azul Hernandezoble DIRECTOR OF PLANNING.SENIOR QUANTITY SURVEYOR Work Phone: [facility] 10-17-2022 08:45-0400 Body temperature 97.7 [degF] Azul Pardo DIRECTOR OF PLANNING.SENIOR QUANTITY SURVEYOR Work Phone: [facility] 10-17-2022 08:45-0400 Body weight 95.25 kg Azul Pardo DIRECTOR OF PLANNING.SENIOR QUANTITY SURVEYOR Work Phone: [facility] 10-17-2022 08:45-0400 Diastolic blood pressure 76 mm[Hg] Azul Hernandezoble DIRECTOR OF PLANNING.SENIOR QUANTITY SURVEYOR Work Phone: [facility] 10-17-2022 08:45-0400 Heart rate 76 /min Azul Hernandezoble DIRECTOR OF PLANNING.SENIOR QUANTITY SURVEYOR Work Phone: [facility] 10-17-2022 08:45-0400 Respiratory rate 18 /min Azul Maryoble DIRECTOR OF PLANNING.SENIOR QUANTITY SURVEYOR Work Phone: [facility] 10-17-2022 08:45-0400 Systolic blood pressure 124 mm[Hg] Azul Maryoble DIRECTOR OF PLANNING.SENIOR QUANTITY SURVEYOR Work Phone: [facility] 10-10-2022 10:03-0400 Diastolic blood pressure 74 mm[Hg] Radha Marina DO Work Phone: [facility] 10-10-2022 10:03-0400 Heart rate 63 /min Radha Marina DO Work Phone: [facility] 10-10-2022 10:03-0400 SaO2% (BldA) [Mass fraction] 95 % Radha Marina DO Work Phone: [facility] 10-10-2022 10:03-0400 Systolic blood pressure 126 mm[Hg] Radha Marina DO Work Phone: [facility] 09-27-2022 12:22-0400 Body height 168.5 cm Maylin Pimentel PA-C Work Phone: [facility] 09-27-2022 12:22040 Body temperature 97.11 [degF] Maylin Pimentel PA-C Work Phone: [facility] 09-27-2022 12:22-0400 Body weight 94.8 kg Maylin Pimentel PA-C Work Phone: [facility] 09-27-2022 12:22-0400 Diastolic blood pressure 70 mm[Hg] Maylin Pimentel PA-C Work Phone: [facility] 09-27-2022 12:22-0400 Heart rate 68 /min Maylin Pimentel PA-C Work Phone: [facility] 09-27-2022 12:22-0400 Respiratory rate 18 /min Maylin Pimentel PA-C Work Phone: [facility] 09-27-2022 12:22-0400 Systolic blood pressure 122 mm[Hg] Maylin Pimentel PA-C Work Phone: [facility] 07-26-2022 12:42-0500 Body weight 95.89 kg Maylin Pimentel PA-C Work Phone: [facility] 07-26-2022 12:42-0500 Diastolic blood pressure 70 mm[Hg] Maylin Pimentel PA-C Work Phone: [facility] 07-26-2022 12:42-0500 Heart rate 69 /min Maylin Pimentel PA-C Work Phone: [facility] 07-26-2022 12:42-0500 Respiratory rate 20 /min Maylin BERMUDEZ-C Work Phone: [facility] 07-26-2022 12:42-0500 SaO2% (BldA) [Mass fraction] 97 % Maylin BERMUDEZ-C Work Phone: [facility] 07-26-2022 12:42-0500 Systolic blood pressure 132 mm[Hg] Maylin BERMUDEZ-C Work Phone: [facility] 02-01-2017 10:56-0400 Heart rate 65 /min Edikhushbupiyush [facility] Work Phone: 02-01-2017 10:42-0400 BMI (Body Mass Index) 31.09 kg/m2 [facility]upiy[facility] Work Phone: 02-01-2017 10:42-0400 BP Diastolic 60 mm[Hg] [facility]yush [facility] Work Phone: 02-01-2017 10:42-0400 BP Systolic 120 mm[Hg] Edioracio [facility] Work Phone: 02-01-2017 10:42-0400 Height 172.72 cm Sebas [facility] Work Phone: 02-01-2017 10:42-0400 Pulse (Heart Rate) 72 /min Edikhushbupiyush [facility] Work Phone: 02-01-2017 10:42-0400 Respiratory Rate 20 /min Sebas [facility] Work Phone: 02-01-2017 10:42-0400 Weight 92.76 kg Sebas [facility] Work Phone: 01-02-2017 08:51-0400 BMI (Body Mass Index) 28.98 kg/m2 Merced Bedoya [facility] Work Phone: 01-02-2017 08:51-0400 Body Temperature 98.1 [degF] Merced Bedoya [facility] Work Phone: 01-02-2017 08:51-0400 BP Diastolic 83 mm[Hg] Merced Aureliano [facility] Work Phone: 01-02-2017 08:51-0400 BP Systolic 146 mm[Hg] Merced Aureliano [facility] Work Phone: 01-02-2017 08:51-0400 Height 177.8 cm Mercedsteafno Bedoya [facility] Work Phone: 01-02-2017 08:51-0400 Pulse (Heart Rate) 73 /min Merced Aureliano [facility] Work Phone: 01-02-2017 08:51-0400 Pulse Oximetry 97 % Merced Aureliano [facility] Work Phone: 01-02-2017 08:51-0400 Respiratory Rate 18 /min Merced Aureliano [facility] Work Phone: 01-02-2017 08:51-0400 Weight 91.63 kg Merced Bedoya [facility] Work Phone: 07-06-2016 08:59-0500 BMI (Body Mass Index) 30.99 kg/m2 Tess Lange LPN [facility] Work Phone: 07-06-2016 08:59-0500 Body Temperature 97.7 [degF] Tess Lange LPN [facility] Work Phone: 07-06-2016 08:59-0500 BP Diastolic 75 mm[Hg] Tess Lange LPN [facility] Work Phone: 07-06-2016 08:59-0500 BP Systolic 129 mm[Hg] Tess Lange STEAM ENGINEER [facility] Work Phone: 07-06-2016 08:59-0500 BSA (Body Surface Area) 2.16 m2 Tess Lange LPN [facility] Work Phone: 07-06-2016 08:59-0500 Height 177.8 cm Tess Lange STEAM ENGINEER [facility] Work Phone: 07-06-2016 08:59-0500 Pulse (Heart Rate) 80 /min Tess Lange STEAM ENGINEER [facility] Work Phone: 07-06-2016 08:59-0500 Pulse Oximetry 94 % Tess Lange STEAM ENGINEER [facility] Work Phone: 07-06-2016 08:59-0500 Respiratory Rate 18 /min Tess Lange STEAM ENGINEER [facility] Work Phone: 07-06-2016 08:59-0500 Weight 98.18 kg Tess Lange STEAM ENGINEER [facility] Work Phone: 07-06-2016 08:59-0500 Weight 97.98 kg Tess Lange STEAM ENGINEER [facility] [place] Phone: Encounters Encounter Date Encounter Type Care Provider Facility Start: 07-30-2023 End: 07-30-2023 ambulatory BANNER [facility] Start: 07-24-2023 End: 07-24-2023 ambulatory RADHA MARINA Facility:[facility] Start: 07-23-2023 End: 07-23-2023 ambulatory BANNER Facility:[facility] Start: 07-11-2023 End: 07-11-2023 ambulatory AZUL PARDO Facility:[facility] Start: 07-03-2023 End: 07-03-2023 ambulatory RADHA MARINA Facility:[facility] Start: 06-22-2023 ambulatory Lopez Brown RN Work Phone: Filler Shredder Helper Management Procedures Date Procedure Procedure Detail Performing Clinician Start: 06-04-2023 INFLUENZA VACCINE, PRSV FREE, AGE 65+ YR, HIGH DOSE, QUADRIVALENT (FLUZONE HIGH-DOSE) Azul Pardo APRN.CNP Work Phone: Start: 03-30-2023 Ecg routine ecg w/least 12 lds i&r only [facility] Provider Start: 10-17-2022 Ct angiography head w/contrast/noncontrast Radha Marina DO Work Phone: Start: 10-17-2022 Ct angiography neck w/contrast/noncontrast Radha Marina DO Work Phone: Start: 07-26-2022 INFLUENZA SEASONAL QUADRIVALENT HIGH DOSE AGE 65+ Maylin Pimentel PA-C Work Phone: Start: 02-27-2022 Ct head/brain w/o contrast material Leia Pimentel PA-C Work Phone: Start: 05-15-2017 End: 05-15-2017 Prgrmg eval implantable in person multi lead dfb Razia Combs PA-C Work Phone: Start: 02-09-2017 End: 02-09-2017 Prgrmg eval implantable in person multi lead dfb Mio Garcia MD Start: 02-09-2017 End: 02-09-2017 Icd device progr willian millert Mio aolnzo MD Start: 02-01-2017 End: 02-01-2017 Ecg routine [...] in coronary artery Mutilple coronary stents Sebas Guadararma Start: 01-02-2017 End: 01-03-2017 Referral to insurance assistant Kiko Peters Work Phone: Start: 01-02-2017 End: 03-05-2017 Referral to insurance assistant Kiko Peters Work Phone: Start: 04-10-2016 End: 04-10-2016 Demo&/eval of pt utiliz aersl gen/neb/inhlr/ip Kiko Slaughter DO Work Phone: Start: 04-10-2016 End: 04-10-2016 Evaluate pt use of inhaler Kiko Slaughter DO Work Phone: Start: 02-28-2016 End: 04-10-2016 ARLEEN Slaughter DO Work Phone: Start: 02-28-2016 End: 04-10-2016 Follow Up Appt 6 weeks Kiko Slaughter DO Work Phone: Start: 02-28-2016 End: 04-07-2016 Pulmonary Function Test - complete Kiko Slaughter DO Work Phone: Start: 02-28-2016 End: 04-07-2016 Pulmonary stress test/simple Kiko jiménez DO Work Phone: Start: 02-28-2016 End: 04-10-2016 ARLEEN Slaughter DO Work Phone: Start: 02-28-2016 End: 04-10-2016 Follow Up Appt 6 weeks Kiko Slaughter DO Work Phone: Start: 02-28-2016 End: 04-07-2016 Pulmonary Function Test - complete Kiko Slaughter DO Work Phone: Start: 02-28-2016 End: 04-07-2016 Pulmonary stress test/simple Kiko Tyrese Morgan jiménez DO Work Phone: Start: 09-26-2013 History of coronary artery bypass grafting S/P CABG x 3 Giselle Cortez RN Colonoscopy Breanna Ribera Esophagogastroduodenoscopy J elizabeth Ribera Insertion of arterial stent Breanna Ribera Insertion of pacemak er pulse generator Breanna Ribera Operation on heart Breanna perez 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 Breanna Ribera Plan of Treatment Date Care Activity Detail Author Start: 04-19-2027 Urine microalbumin profile [facility] Start: 06-04-2024 Annual PCP Team Supervisor Brake Repair gilles Disease Visit Annual PCP Team Chronic Disease Visit [facility] Start: 03-30-2024 Annual PCP Team Supervisor Brake Repair gilles Disease Visit Annual PCP Team Chronic Disease Visit [facility] Start: 03-30-2024 BP Controlled (<130/80) BP Controlle d (<130/80) [facility] Start: 03-30-2024 Hepatitis B screening Urine Al bumin:Creatinine Ratio [facility] Start: 03-30-2024 Hepatitis B surface antibody level LDL Cholesterol [facility] Start: 03-30-2024 Shingrix Vaccine (1 of 2) [place]ett grix Vaccine (1 of 2) [facility] Immunizations Immunization Date Immunization Notes Care Provider Sharifa madsen 06-04-2023 influenza (HD-IIV4) vaccine, age 65+ yr, high dose, quadrivalent, PF (FLUZONE HIGH-DOSE) Azul Pardo APRN.SENIOR QUANTITY SURVEYOR Work Phone: [facility] 07-26-2022 influenza, high-dose , quadrivalent vaccine (FLUZONE HIGH DOSE QUADRIVALENT) Maylin Pimentel PA-C Work Phone: [facility] 07-26-2022 influenza virus vacc ine, unspecified formulation Fito Chavez MD Work Phone: [facility] 08-02-2021 influenza, high-dose , quadrivalent vaccine (FLUZONE HIGH DOSE QUADRIVALENT) Giselle Cortez RN [facility] 02-22-2021 COVID-19 vaccine, ag e 12+ yr (PFIZER-BIONTECH - PURPLE TOP) Giselle Cortez RN [facility] Work Phone: 02-02-2021 COVID-19 vaccine, ag e 12+ yr (PFIZER-BIONTECH - PURPLE TOP) Giselle Cortez RN [facility] 04-08-2020 influenza, seasonal, injectable, preservative free Giselle Cortez RN [facility] 03-09-2020 influenza, seasonal, injectable, preservative free Giselle Cortez RN [facility] 06-03-2019 influenza, high dose seasonal, preservative-free Giselle Cortez RN [facility] 05-02-2018 influenza, high dose seasonal, preservative-free Giselle Cortez RN [facility] 05-16-2017 influenza, injectabl e, quadrivalent, contains preservative Giselle Cortez RN [facility] 05-09-2017 influenza, seasonal, injectable, preservative free Giselle Cortez RN [facility] 04-19-2017 tetanus toxoid, redu yash diphtheria toxoid, and acellular pertussis vaccine, adsorbed Giselle Cortez [facility] Work Phone: 04-09-2017 pneumococcal conjuga te vaccine, 13 valent Giselle Cortez RN [facility] 04-24-2016 influenza virus vacc ine, unspecified formulation Giselle Cortez RN [facility] Work Phone: 04-10-2016 influenza, injectabl e, madin shawna canine kidney, preservative free Giselle Cortez RN [facility] 04-10-2016 influenza, injectabl e, quadrivalent, preservative free Samantha Penaloza RN [facility] Work Phone: 04-10-2016 [id number] Samantha Penaloza RN [facility] Work Phone: 04-10-2016 influenza, injectabl e, quadrivalent, preservative free Tess Lange [facility] Work Phone: 04-10-2016 [id number] Tess Nazario DIAZ [facility] Work Phone: 03-01-2016 pneumococcal polysaccharide vaccine, 23 valent Giselle Cortez RN [facility] Work Phone: 09-15-2014 pneumococcal conjuga te vaccine, 13 valent Giselle Cortez RN [facility] 04-08-2014 influenza, seasonal, injectable Giselle Cortez RN [facility] 06-09-2013 influenza virus vacc ine, unspecified formulation Giselle Cortez RN [facility] Work Phone: 05-23-2010 pneumococcal polysaccharide vaccine, 23 valent Giselle Cortez RN Work Phone: [facility] Work Phone: 05-14-2008 influenza virus vacc ine, whole virus Giselle Cortez RN [facility] Payers Date Payer Category Payer Medicare 2015 Medicare MEDICARE MEDICAR E A AND B [id number] 2015-Present [phone] [address] [address] [place] [address] Medicare [id number] 2013 Private Health Insurance [employer] SU[employer] [id number] 2013-Present [phone] [address] [place] [address] Indemnity [id number] 2013 Private Health Insurance [employer] [id number] 2013-Present [phone] [address] [place] [address] Indemnity [id number] 2013 Unknown [id number] 2006 Medicare [id number] 1945 Unknown [id number] Social History Date Type Detail Facility Start: 12-03-2012 End: 02-24-2022 Tobacco smoking status NHIS Ex-smoker [facility] Work Phone: End: 05-23-2012 History of tobacco use Current smoker [facility] Work Phone: End: 05-23-2012 History of tobacco use Cigarette Smoker [facility] Work Phone: Start: 12-03-2012 End: 11-13-2022 Cigarettes smoked current (pack per day) - Reported 1 [facility] Work Phone: Start: 12-03-2012 End: 02-24-2022 Tobacco use and exposure Smokeless tobacco non-user [facility] Work Phone: Start: 09-06-2021 End: 03-31-2023 Alcohol intake Current drinker of alcohol (finding) [facility] Start: 1945 Sex Assigned At Not on file [facility] Start: 08-07-2021 End: 03-17-2022 Exposure to SARS-CoV-2 (event) Not sure [facility] Start: 11-13-2022 End: 01-11-2023 Tobacco use panel [facility] Work Phone: Adult Depression Screening Assessment 0 [facility] Work Phone: NEGATED: Highlighted row - - [facility] Work Phone: Goals Date Patient Goal Desired Activity /State Personal health goal Functional Status Date Assessment Result Facility NEGATED: Highlighted row Functional performance Functional status health issues are not documented [facility] Work Phone: Mental Status Date Assessment Result Facility NEGATED: Highlighted row Cognitive function [Interpretation] Cognitive status health issues are not documented [facility] Work Phone: Clinical Notes 11-08-2020 to 07-26-2023 Lopez Brown RN - 06/22/2023 10:08 AM ESTTelephone Encounter - Jennifer Hawthorne LPN - 06/07/2023 4:46 PM ESTTelephone Encounter - Ranjana Tamayo LPN - 06/07/2023 4:43 PM EST Note Date & Type Note [facility] 07-26-2023 Note [facility] 07-25-2023 Note [facility] 07-24-2023 Note [facility] 07-11-2023 Note [facility] 06-25-2023 Note [facility] 06-22-2023 Note [facility] 06-22-2023 History of Present illness Narrative [facility] Telephonic Outreach Provider Action/FYI Contacted for: Routine Telephonic Outreach Contact made with patient: No, left message. Lopez Brown RN June 22, 2023 4:11 PM documented in this encounter [facility] 06-07-2023 Miscellaneous Notes Spoke with pt and information listed below given. Pt verbalizes understanding. Apt has been booked. Jennifer Hawthorne LPN Patient returned call and went over results, notes from Azul Pardo MECHANICAL FITTER with understanding. Assisted with transfer to [employer] to get appt set up. 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 I have placed a referral to spine for further eval. documented in this encounter [facility] 06-04-2023 Note [facility] 06-04-2023 Note [facility] 06-04-2023 History of Present illness Narrative Chief Complaint Patient presents with: Hospital F/U [facility] Francisco Faith is a 77 year old [...] of right lower extremity with intermittent claudication ([facility]) 04/04/2021 Benign non-nodular prostatic hyperplasia with lower urinary tract symptoms 03/01/2016 Bilateral carotid artery disease ([facility]) 10/25/2015 US 11/2016: 20-40% on right 60-80% on left US 11/2017: stable with 20-40% on right and 60-80% on left Blood type O+ 03/29/2020 Cardiomyopathy, ischemic 09/26/2013 Chronic pain 09/11/[address] Barnett. COLD (chronic obstructive lung disease) ([facility]) 02/01/2015 Moderate: Seeing Dr. Slaughter Combined forms of age-related cataract of right eye 10/02/2020 Controlled type 2 diabetes mellitus without complication, without long-term current use of insulin ([facility]) 06/20/2016 Coronary artery disease involving coronary bypass graft of [place]ie heart without angina pectoris 02/01/[address] Garcia pacemaker/defib, 3 stents and 4 vessle CABG Current use of proton pump inhibitor 03/24/2017 DDD (degenerative disc disease), lumbar 06/13/2013 Diabetic eye exam ([facility]) 11/13/2016 Last done: 11/13/2016 Esophageal spasm 04/18/2017 [...] Squamous cell carcinoma of skin 08/02/2021 [place] [place] Status post cataract extraction and insertion of [...] DX W/COLLJ SPEC WHEN PFRMD 03/08/2006 Colonoscopy [facility] - no polyps COLONOSCOPY FLX DX W/COLLJ SPEC WHEN PFRMD 08/14/2000 Colonoscopy [facility]- no polyps COLONOSCOPY FLX DX W/COLLJ SPEC WHEN PFRMD 02/26/2013 Colonoscopy, no polyps, recheck 10 yrs CORONARY ARTERY BYP W/VEIN & ARTERY GRAFT 3 VEIN 05/2012 CABG, three grafts CORONARY STENT EA VESSEL 2004 Drug eluting ESOPHAGOGASTRODUODENOSCOPY TRANSORAL DIAGNOSTIC 03/08/2006 EGD [facility] PAST SURGICAL HISTORY OF Left 01/01/2020 left [...] 496, ICD10: J44.9 -Currently stable -Follows with [facility] Azul Pardo APRN.SENIOR QUANTITY SURVEYOR documented in this encounter [facility] 05-26-2023 Miscellaneous Notes Pt is requesting refills. Rescheduled pt's hosp f/u for 06/04 with Azul. Soonest pt could schedule d/t going out of town next week. Call pt only if problem in refilling rx's. Jameel Marquez LPN documented in this encounter [facility] 05-15-2023 Note [facility] 05-01-2023 Miscellaneous Notes Let patient [...] to take. Patient uses Drug Juan Carlos Cardenas MA documented in this encounter [facility] 04-17-2023 Note [facility] 04-17-2023 History of Present illness [...] more often than normal? No Based on refuge manager, the following disposition is advised: No symptoms or symptoms present, not severe. Routed to: No Action Needed KEITH Education Provided this Outreach: No Lopez Brown RN April 17, 2023 1:43 PM documented in this encounter [facility] 04-05-2023 Miscellaneous Notes Pt returned call and [...] breathing has improved. documented in this encounter [facility] 04-05-2023 Miscellaneous Notes Patient notified of results, verbalizes understanding of instructions. Neena Cuenca LPN Let patient know his stress test was ok. documented in this encounter [facility] 04-03-2023 Note HNO ID: [id number] Author: Maritza Alegria CNMT Service: Radiology Author [...] Discontinued PROCEDURE TYPE: NM Stress: 12.9 mCi [id number] was administered IV for Rest Imaging at 7:55 by mm. 33.6 mCi [id number] was administered IV for Stress Imaging at 8:55 by mm. PATIENT DISCHARGED TO: Ambulatory patient, left [place] department area. A Diagnostic radioactive procedure has taken place, with no further precautions necessary other than routine body substance precautions. More information regarding radiation safety can be found using this link: [email or web address] SIGNATURE: CHARITY Clark PATIENT NAME: Francisco Faith DATE: April 03, 2023 TIME: 9:02 AM PAGER/CONTACT #: [facility] 04-02-2023 Miscellaneous Notes Spoke with patient regarding reminder for stress test tomorrow and given instructions. documented in this encounter [facility] 04-02-2023 Miscellaneous Notes Patient notified of results and provider's instructions. Patient verbalizes understanding. Tierney De Jesus RN Left message for pt to contact office. Jameel Marquez LPN Please let patient know that CT shows evidence of possible pneumonia. I see he was recently started on another atb. Will have him continue that. Maylin Pimentel PA-C documented in this encounter [facility] 03-30-2023 Note [facility] 03-30-2023 Miscellaneous Notes Pt notified. He verbalized understanding. Joao Wilson LPN Let patient know his chest x-ray shows he may have a developing pneumonia in the left lung. An antibiotic has been sent to the pharmacy. documented in this encounter [facility] 03-30-2023 Note [facility] 03-30-2023 Instructions Fito Chavez MD - 03/30/2023 11:31 AM EDT Consider getting the shingrix vaccine for the prevention of shingles from a local pharmacy Also work on getting a flu vaccine in mid to late Apr. documented in this encounter [facility] 03-30-2023 History of Present illness Narrative Chief [...] read is still pending. Patient sees his rn on site next week. Has has not discussed this [...] of right lower extremity with intermittent claudication ([facility]) 04/04/2021 Benign non-nodular prostatic hyperplasia with lower urinary tract symptoms 03/01/2016 Bilateral carotid artery disease ([facility]) 10/25/2015 US 11/2016: 20-40% on right 60-80% on left US 11/2017: stable with 20-40% on right and 60-80% on left Blood type O+ 03/29/2020 Cardiomyopathy, ischemic 09/26/2013 Chronic pain 09/11/[address] Barnett. COLD (chronic obstructive lung disease) ([facility]) 02/01/2015 Moderate: Seeing Dr. Slaughter Controlled type 2 diabetes mellitus without complication, without long-term current use of insulin ([facility]) 06/20/2016 Coronary artery disease involving coronary bypass graft of [place] heart without angina pectoris 02/01/[address] Garcia pacemaker/defib, 3 stents and 4 vessle CABG Current use of proton pump inhibitor 03/24/2017 DDD (degenerative disc disease), lumbar 06/13/2013 Diabetic eye exam ([facility]) 11/13/2016 Last done: 11/13/2016 Esophageal spasm 04/18/2017 [...] DX W/COLLJ SPEC WHEN PFRMD 03/08/2006 Colonoscopy [facility] - no polyps COLONOSCOPY FLX DX W/COLLJ SPEC WHEN PFRMD 08/14/2000 Colonoscopy [facility]- no polyps COLONOSCOPY FLX DX W/COLLJ SPEC WHEN PFRMD 02/26/2013 Colonoscopy, no polyps, recheck 10 yrs CORONARY ARTERY BYP W/VEIN & ARTERY GRAFT 3 VEIN 05/2012 CABG, three grafts CORONARY STENT EA VESSEL 2004 Drug eluting ESOPHAGOGASTRODUODENOSCOPY TRANSORAL DIAGNOSTIC 03/08/2006 EGD [place] PAST SURGICAL HISTORY OF Left 01/01/2020 left [...] into the left arm. No jaw pain. [place] tired. Some nausea. No diaphoresis. Pain resolved [...] (HCC) - ICD9: 250.70, 443.81, ICD10: E11.51 (primary [...] (HCC) - ICD9: 250.70, 443.81, ICD10: E11.51 - as above Check - ALBUMIN/CREAT RATIO RND UR - COMP METABOLIC PANEL - HGB A1C - URINALYSIS, WITH MICROSCOPIC - LIPID PANEL, NONFASTING - CBC + DIFF 3. 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) - ICD9: 250.00, ICD10: E11.9 - see above Check - ALBUMIN/CREAT RATIO RND UR - COMP METABOLIC PANEL - HGB A1C - URINALYSIS, WITH MICROSCOPIC - LIPID PANEL, NONFASTING - CBC + DIFF 4. Diabetic eye exam (HCC) - ICD9: V72.0, [...] artery disease involving coronary bypass graft of venetie heart without angina pectoris - ICD9: 414.05, ICD10: I25.810 - concern for potential blockage. Check - ECG COMPLETE - LIPID PANEL, NONFASTING - INSERT IV ([place]) - IV DISCONTINUE - NM CARDIAC [...] - NT PRO BNP - INSERT IV ([place]) - IV DISCONTINUE - NM CARDIAC PERF STRESS/PHARM - REGADENOSON 0.4 MG/5 ML INTRAVENOUS SYRINGE - AMINOPHYLLINE 250 MG/10 ML INTRAVENOUS SOLUTION - METOPROLOL TARTRATE 5 MG/5 ML INTRAVENOUS SOLUTION Patient with COPD and paced rhythm; not a treadmill/EKG only candidate. 9. Angina pectoris (HCC) - ICD9: 413.9, ICD10: I20.9 Check - ECG COMPLETE - INSERT IV ([place]) - IV DISCONTINUE - NM CARDIAC [...] which included preparing to see the patient, [id number] patient care, completing clinical documentation, performing a medically appropriate examination, counseling and educating the patient/family/caregiver and ordering medications, tests, or procedures. Fito Chavez MD documented in this encounter [facility] 03-29-2023 Note [facility] 03-19-2023 Note [facility] 03-19-2023 History of Present illness [...] of right lower extremity with intermittent claudication ([facility]) 04/04/2021 Benign non-nodular prostatic hyperplasia with lower urinary tract symptoms 03/01/2016 Bilateral carotid artery disease ([facility]) 10/25/2015 US 11/2016: 20-40% on right 60-80% on left US 11/2017: stable with 20-40% on right and 60-80% on left Blood type O+ 03/29/2020 Cardiomyopathy, ischemic 09/26/2013 Chronic pain 09/11/[address] Barnett. COLD (chronic obstructive lung disease) ([facility]) 02/01/2015 Moderate: Seeing Dr. Slaughter Controlled type 2 diabetes mellitus without complication, without long-term current use of insulin ([facility]) 06/20/2016 Coronary artery disease involving coronary bypass graft of [place] heart without angina pectoris 02/01/[address] Garcia pacemaker/defib, 3 stents and 4 vessle CABG Current use of proton pump inhibitor 03/24/2017 DDD (degenerative disc disease), lumbar 06/13/2013 Diabetic eye exam ([facility]) 11/13/2016 Last done: 11/13/2016 Esophageal spasm 04/18/2017 [...] DX W/COLLJ SPEC WHEN PFRMD 03/08/2006 Colonoscopy [facility] - no polyps COLONOSCOPY FLX DX W/COLLJ SPEC WHEN PFRMD 08/14/2000 Colonoscopy [facility]- no polyps COLONOSCOPY FLX DX W/COLLJ SPEC WHEN PFRMD 02/26/2013 Colonoscopy, no polyps, recheck 10 yrs CORONARY ARTERY BYP W/VEIN & ARTERY GRAFT 3 VEIN 05/2012 CABG, three grafts CORONARY STENT EA VESSEL 2004 Drug eluting ESOPHAGOGASTRODUODENOSCOPY TRANSORAL DIAGNOSTIC 03/08/2006 EGD [facility] PAST SURGICAL HISTORY OF Left 01/01/2020 left [...] tablet by mouth twice daily. Per Dr. Moodispaw nitroglycerin sublingual (NITROQUICK) 0.4 mg SL tablet [...] Maylin Pimentel PA-C documented in this encounter [facility] 03-16-2023 Note [facility] 03-16-2023 Note [facility] 03-16-2023 Note [facility] 03-16-2023 History of Present illness Narrative POPULATION HEALTH NAVIGATION OUTREACH Action/March 16, 2023 Spoke with pt. Pt scheduled [...] appointment? No Reason for Outreach Community Monitoring [place] Payer: Payor: MEDICARE / Plan: MEDICARE A [...] Rosales MA March 16, 2023 1:10 PM [facility] Telephonic Outreach Provider Abram/MINNIE Patient contacted pulmonary office. Staff are unable [...] to talk about today? Yes Based on refuge manager, the following disposition is advised: No symptoms or symptoms present, not severe. Routed to: No Action Needed KEITH Education Provided this Outreach: No Lopez Brown RN March 16, 2023 1:07 PM [facility] Telephonic Outreach Provider Abram/MOLLYI Patient states his follow up with Pulmonary [...] to talk about today? Yes Based on refuge manager, the following disposition is advised: No symptoms or symptoms present, not severe. Routed to: No Action Needed KEITH Education Provided this Outreach: No Lopez Brown RN March 16, 2023 11:24 AM [facility] Telephonic Outreach Provider Abram/MINNIE Patient states he [...] to talk about today? Yes Based on refuge manager, the following disposition is advised: No symptoms or symptoms present, not severe. Routed to: No Action Needed KEITH Education Provided this Outreach: Kasey Brown RN March 15, 2023 3:58 PM documented in this encounter [facility] 03-14-2023 Note [facility] 03-06-2023 Note HNO ID: [id number] Author: Jamison Ruvalcaba PA-C Service: ? Author Type: Physician Residential Service Technician Type: Progress Notes Filed: 03/06/2023 9:27 AM Note Text: Medrol sent per patient request [facility] 03-06-2023 History of Present illness Narrative Medrol sent per patient request documented in this encounter [facility] 02-19-2023 Note HNO ID: [id number] Author: Jamison Ruvalcaba PA-C Service: ? Author Type: Physician Residential Service Technician Type: Progress Notes Filed: 02/19/2023 10:08 AM [...] of right lower extremity with intermittent claudication ([facility]) 04/04/2021 Benign non-nodular prostatic hyperplasia with lower urinary tract symptoms 03/01/2016 Bilateral carotid artery disease (HCC) 10/25/2015 US 11/2016: 20-40% on right 60-80% on left US 11/2017: stable with 20-40% on right and 60-80% on left Blood type O+ 03/29/2020 Cardiomyopathy, ischemic 09/26/2013 Chronic pain 09/11/[address] Barnett. COLD (chronic obstructive lung disease) ([facility]) 02/01/2015 Moderate: Seeing Dr. Slaughter Controlled type 2 diabetes mellitus without complication, without long-term current use of insulin ([facility]) 06/20/2016 Coronary artery disease involving coronary bypass graft of [place]ie heart without angina pectoris 02/01/[address] Garcia pacemaker/defib, 3 stents and 4 vessle CABG Current use of proton pump inhibitor 03/24/2017 DDD (degenerative disc disease), lumbar 06/13/2013 Diabetic eye exam ([facility]) 11/13/2016 Last done: 11/13/2016 Esophageal spasm 04/18/2017 [...] tablet 3 c (more content not included)... [facility] 02-19-2023 Miscellaneous Notes Pt notified. Giselle [...] Nanda Castro RN documented in this encounter [facility] 02-19-2023 History of Present illness Narrative CC: [...] of right lower extremity with intermittent claudication ([facility]) 04/04/2021 Benign non-nodular prostatic hyperplasia with lower urinary tract symptoms 03/01/2016 Bilateral carotid artery disease ([facility]) 10/25/2015 11/2016: 20-40% on right 60-80% on left US 11/2017: stable with 20-40% on right and 60-80% on left Blood type O+ 03/29/2020 Cardiomyopathy, ischemic 09/26/2013 Chronic pain 09/11/[address] Barnett. COLD (chronic obstructive lung disease) ([facility]) 02/01/2015 Moderate: Seeing Dr. Slaughter Controlled type 2 diabetes mellitus without complication, without long-term current use of insulin ([facility]) 06/20/2016 Coronary artery disease involving coronary bypass graft of [place] heart without angina pectoris 02/01/[address] Garcia pacemaker/defib, 3 stents and 4 vessle CABG Current use of proton pump inhibitor 03/24/2017 DDD (degenerative disc disease), lumbar 06/13/2013 Diabetic eye exam ([facility]) 11/13/2016 Last done: 11/13/2016 Esophageal spasm 04/18/2017 [...] not fully corrected. documented in this encounter [facility] 02-14-2023 Note [facility] 02-14-2023 Note [facility] 02-14-2023 History of Present illness [...] history is provided by the patient. No lung puller was used. Review of Systems Constitutional: Negative. [...] Dr. Barnett. COLD (chronic obstructive lung disease) ([facility]) 02/01/2015 Moderate: Seeing Dr. Slaughter Controlled type 2 diabetes mellitus without complication, without long-term current use of insulin ([facility]) 06/20/2016 Coronary artery disease involving coronary bypass graft of [place] heart without angina pectoris 02/01/[address] Garcia pacemaker/defib, 3 stents and 4 vessle CABG Current use of proton pump inhibitor 03/24/2017 DDD (degenerative disc disease), lumbar 06/13/2013 Diabetic eye exam ([facility]) 11/13/2016 Last done: 11/13/2016 Esophageal spasm 04/18/2017 [...] small cell (HCC) Peripheral vascular disease, unspecified ([facility]) PVD (peripheral vascular disease) ([facility]) 12/03/2012 3 stents to left leg S/P [...] DX W/COLLJ SPEC WHEN PFRMD 03/08/2006 Colonoscopy [facility] - no polyps COLONOSCOPY FLX DX W/COLLJ SPEC WHEN PFRMD 08/14/2000 Colonoscopy [facility]- no polyps COLONOSCOPY FLX DX W/COLLJ SPEC WHEN PFRMD 02/26/2013 Colonoscopy, no polyps, recheck 10 yrs CORONARY ARTERY BYP W/VEIN & ARTERY GRAFT 3 VEIN 05/2012 CABG, three grafts CORONARY STENT EA VESSEL 2004 Drug eluting ESOPHAGOGASTRODUODENOSCOPY TRANSORAL DIAGNOSTIC 03/08/2006 EGD [place] PAST SURGICAL HISTORY OF Left 01/01/2020 left [...] as described, with no acute process seen. [place]: PSCB Transcribe Date/Time: Feb 14 2023 3:38P Dictated [...] okay with this care plan. Everett Cardenas APRN.COURTNEY documented in this encounter [facility] 02-14-2023 Miscellaneous Notes Pt was notified of results & pt voiced understanding. Angelika Schwab LPN Let patient know that his CXR was normal. Continue as we discussed documented in this encounter [facility] 02-13-2023 Note [facility] 02-13-2023 Note [facility] 02-08-2023 Note [facility] 01-29-2023 Note HNO ID: [id number] Author: Jameel Marquez LPN Service: ? Author Type: ? Type: Progress Notes Filed: 01/31/2023 1:05 PM Note Text: Scan on 01/29/2023 2:26 PM by Provider, RITA Han: Consultation - Cardiology [facility] 01-18-2023 Miscellaneous Notes Reviewed Maylin's message and instructions with pt. Pt verbalizes [...] if we can get him seen by [facility] or see if he is willing [...] Maylin Pimentel PA-C documented in this encounter [facility] 01-17-2023 Miscellaneous Notes The following approved medication [...] patient. Abena Hillman documented in this encounter [facility] 01-11-2023 Note [facility] 01-11-2023 Note [facility] 01-11-2023 History of Present illness [...] of right lower extremity with intermittent claudication ([facility]) 04/04/2021 Benign non-nodular prostatic hyperplasia with lower urinary tract symptoms 03/01/2016 Bilateral carotid artery disease ([facility]) 10/25/2015 US 11/2016: 20-40% on right 60-80% on left US 11/2017: stable with 20-40% on right and 60-80% on left Blood type O+ 03/29/2020 Cardiomyopathy, ischemic 09/26/2013 Chronic pain 09/11/[address] Barnett. COLD (chronic obstructive lung disease) ([facility]) 02/01/2015 Moderate: Seeing Dr. Slaughter Controlled type 2 diabetes mellitus without complication, without long-term current use of insulin ([facility]) 06/20/2016 Coronary artery disease involving coronary bypass graft of [place]ie heart without angina pectoris 02/01/[address] Garcia pacemaker/defib, 3 stents and 4 vessle CABG Current use of proton pump inhibitor 03/24/2017 DDD (degenerative disc disease), lumbar 06/13/2013 Diabetic eye exam ([facility]) 11/13/2016 Last done: 11/13/2016 Esophageal spasm 04/18/2017 [...] DX W/COLLJ SPEC WHEN PFRMD 03/08/2006 Colonoscopy [facility] - no polyps COLONOSCOPY FLX DX W/COLLJ SPEC WHEN PFRMD 08/14/2000 Colonoscopy [facility]- no polyps COLONOSCOPY FLX DX W/COLLJ SPEC WHEN PFRMD 02/26/2013 Colonoscopy, no polyps, recheck 10 yrs CORONARY ARTERY BYP W/VEIN & ARTERY GRAFT 3 VEIN 05/2012 CABG, three grafts CORONARY STENT EA VESSEL 2004 Drug eluting ESOPHAGOGASTRODUODENOSCOPY TRANSORAL DIAGNOSTIC 03/08/2006 EGD [facility] PAST SURGICAL HISTORY OF Left 01/01/2020 left [...] tablet by mouth twice daily. Per Dr. Moodispaw nitroglycerin sublingual (NITROQUICK) 0.4 mg SL tablet [...] Maylin Pimentel PA-C documented in this encounter [facility] 01-10-2023 Note [facility] 01-08-2023 Note [facility] 12-26-2022 Note [facility] 12-26-2022 History of Present illness Narrative NAME: [facility] NO: [id number] DATE OF SERVICE: 12/26/2022 DATE OF : [...] plan. Radha Marina D.O. KB/089 Audio #: [id number] Date Dictated: 12/26/2022 09:27:07 Date Typed: 12/27/2022 07:25:52 Date Revised: documented in this encounter [facility] 12-06-2022 Note [facility] 12-06-2022 History of Present illness Narrative CDM Telephonic Outreach Provider Action/FYI Patient had been [...] to talk about today? Yes Based on refuge manager, the following disposition is advised: No symptoms or symptoms present, not severe. Routed to: No Action Needed KEITH Education Provided this Outreach: No Lopez Brown RN December 06, 2022 2:06 PM documented in this encounter [facility] 11-13-2022 Note [facility] 11-13-2022 History of Present illness [...] Dr. Barnett. COLD (chronic obstructive lung disease) ([facility]) 02/01/2015 Moderate: Seeing Dr. Slaughter Controlled type 2 diabetes mellitus without complication, without long-term current use of insulin ([facility]) 06/20/2016 Coronary artery disease involving coronary bypass graft of [place] heart without angina pectoris 02/01/[address] Garcia pacemaker/defib, 3 stents and 4 vessle CABG Current use of proton pump inhibitor 03/24/2017 DDD (degenerative disc disease), lumbar 06/13/2013 Diabetic eye exam ([facility]) 11/13/2016 Last done: 11/13/2016 Esophageal spasm 04/18/2017 [...] DX W/COLLJ SPEC WHEN PFRMD 03/08/2006 Colonoscopy [facility] - no polyps COLONOSCOPY FLX DX W/COLLJ SPEC WHEN PFRMD 08/14/2000 Colonoscopy [facility]- no polyps COLONOSCOPY FLX DX W/COLLJ SPEC WHEN PFRMD 02/26/2013 Colonoscopy, no polyps, recheck 10 yrs CORONARY ARTERY BYP W/VEIN & ARTERY GRAFT 3 VEIN 05/2012 CABG, three grafts CORONARY STENT EA VESSEL 2004 Drug eluting ESOPHAGOGASTRODUODENOSCOPY TRANSORAL DIAGNOSTIC 03/08/2006 EGD [facility] PAST SURGICAL HISTORY OF Left 01/01/2020 left [...] and reviewed by me Nursing Notes: Maritza WrightJOE 11/13/2022 10:05 AM Signed REVIEW OF SYSTEMS: [...] Nhi Guo MD documented in this encounter [facility] 11-13-2022 Nurse Note REVIEW OF SYSTEMS: General: [...] Maritza Wright LPN documented in this encounter [facility] 11-08-2022 Miscellaneous Notes Patient notified of results [...] Maylin Pimentel PA-C documented in this encounter [facility] 11-06-2022 Note HNO ID: [id number] Author: RT Rodney(R) Service: ? Author Type: [...] Caryl- student November 06, 2022 11:16 AM [facility] 11-03-2022 Note [facility] 11-03-2022 History of Present illness Narrative Chief Complaint Patient presents with: Recheck: Cellulitis right leg HPI Francisco Faith is a 76 year old male who presents here today for recheck. Patient was seen by Azul Pardo x2 for possible cellulitis. Was on Keflex then [...] Dr. Barnett. COLD (chronic obstructive lung disease) ([facility]) 02/01/2015 Moderate: Seeing Dr. Slaughter Controlled type 2 diabetes mellitus without complication, without long-term current use of insulin ([facility]) 06/20/2016 Coronary artery disease involving coronary bypass graft of [place] heart without angina pectoris 02/01/[address] Garcia pacemaker/defib, 3 stents and 4 vessle CABG Current use of proton pump inhibitor 03/24/2017 DDD (degenerative disc disease), lumbar 06/13/2013 Diabetic eye exam ([facility]) 11/13/2016 Last done: 11/13/2016 Esophageal spasm 04/18/2017 [...] disease, unspecified (HCC) PVD (peripheral vascular disease) ([facility]) 12/03/2012 3 stents to left leg S/P [...] DX W/COLLJ SPEC WHEN PFRMD 03/08/2006 Colonoscopy [facility] - no polyps COLONOSCOPY FLX DX W/COLLJ SPEC WHEN PFRMD 08/14/2000 Colonoscopy [facility]- no polyps COLONOSCOPY FLX DX W/COLLJ SPEC WHEN PFRMD 02/26/2013 Colonoscopy, no polyps, recheck 10 yrs CORONARY ARTERY BYP W/VEIN & ARTERY GRAFT 3 VEIN 05/2012 CABG, three grafts CORONARY STENT EA VESSEL 2004 Drug eluting ESOPHAGOGASTRODUODENOSCOPY TRANSORAL DIAGNOSTIC 03/08/2006 EGD [place] PAST SURGICAL HISTORY OF Left 01/01/2020 left [...] Maylin Pimentel PA-C documented in this encounter [facility] 11-01-2022 Note [facility] 11-01-2022 History of Present illness Narrative POPULATION HEALTH NAVIGATION OUTREACH Action/I November 01, 2022 4:07 PM Spoke with patient. He has been rescheduled for November 03, 2022 with AIDAN Benavidez, thank you Patient Identified by Name and : YES, via phone Outreach Outcome/Action Spoke to patient / parent / legal guardian: Patient scheduled Did you use a PCP flex slot to schedule this appointment? No Reason for Outreach [facility] Payer: Payor: MEDICARE / Plan: MEDICARE A [...] to talk about today? Yes Based on refuge manager, the following disposition is advised: Symptoms present, not severe. Routed to: Navigation Team: PCP visit within 7 days KEITH Education Provided this Outreach: No Lopez Brown RN November 01, 2022 3:47 PM documented in this encounter [facility] 11-01-2022 Note [facility] 10-23-2022 Note [facility] 10-23-2022 Instructions Azul Pardo APRN.CNP - 10/23/2022 9:23 AM EDT Stop keflex Start doxycycline Follow up with Maylin in 3-4 days documented in this encounter [facility] 10-23-2022 History of Present illness Narrative Chief [...] of right lower extremity with intermittent claudication ([facility]) 04/04/2021 Benign non-nodular prostatic hyperplasia with lower urinary tract symptoms 03/01/2016 Bilateral carotid artery disease ([facility]) 10/25/2015 US 11/2016: 20-40% on right 60-80% on left US 11/2017: stable with 20-40% on right and 60-80% on left Blood type O+ 03/29/2020 Cardiomyopathy, ischemic 09/26/2013 Chronic pain 09/11/[address] Barnett. COLD (chronic obstructive lung disease) ([facility]) 02/01/2015 Moderate: Seeing Dr. Slaughter Controlled type 2 diabetes mellitus without complication, without long-term current use of insulin ([facility]) 06/20/2016 Coronary artery disease involving coronary bypass graft of [place] heart without angina pectoris 02/01/[address] Garcia pacemaker/defib, 3 stents and 4 vessle CABG Current use of proton pump inhibitor 03/24/2017 DDD (degenerative disc disease), lumbar 06/13/2013 Diabetic eye exam ([facility]) 11/13/2016 Last done: 11/13/2016 Esophageal spasm 04/18/2017 [...] DX W/COLLJ SPEC WHEN PFRMD 03/08/2006 Colonoscopy [facility] - no polyps COLONOSCOPY FLX DX W/COLLJ SPEC WHEN PFRMD 08/14/2000 Colonoscopy [facility]- no polyps COLONOSCOPY FLX DX W/COLLJ SPEC WHEN PFRMD 02/26/2013 Colonoscopy, no polyps, recheck 10 yrs CORONARY ARTERY BYP W/VEIN & ARTERY GRAFT 3 VEIN 05/2012 CABG, three grafts CORONARY STENT EA VESSEL 2004 Drug eluting ESOPHAGOGASTRODUODENOSCOPY TRANSORAL DIAGNOSTIC 03/08/2006 EGD [facility] PAST SURGICAL HISTORY OF Left 01/01/2020 left [...] DOXYCYCLINE MONOHYDRATE 100 MG TABLET Azul Pardo APRN.COURTNEY documented in this encounter [facility] 10-17-2022 Note [facility] 10-17-2022 History of Present illness [...] TIME: 12:21 PM documented in this encounter [facility] 10-17-2022 Note [facility] 10-17-2022 Instructions Azul Pardo APRN.SENIOR QUANTITY SURVEYOR - 10/17/2022 9:10 AM EDT Start cephalexin Follow up in 1 week 3. Monitor area for increased swelling, pain, redness or streaking. documented in this encounter [facility] 10-17-2022 History of Present illness Narrative Chief [...] Dr. Barnett. COLD (chronic obstructive lung disease) ([facility]) 02/01/2015 Moderate: Seeing Dr. Slaughter Controlled type 2 diabetes mellitus without complication, without long-term current use of insulin ([facility]) 06/20/2016 Coronary artery disease involving coronary bypass graft of [place] heart without angina pectoris 02/01/[address] Garcia pacemaker/defib, 3 stents and 4 vessle CABG Current use of proton pump inhibitor 03/24/2017 DDD (degenerative disc disease), lumbar 06/13/2013 Diabetic eye exam ([facility]) 11/13/2016 Last done: 11/13/2016 Esophageal spasm 04/18/2017 [...] disease, unspecified (HCC) PVD (peripheral vascular disease) ([facility]) 12/03/2012 3 stents to left leg S/P CABG x 3 09/26/2013 Seborrheic keratoses, inflamed 05/16/2017 left upper chest treated with cryo 05/16/2017 Spinal stenosis of lumbar region 02/20/2013 Stenosis of left carotid artery 04/04/2021 Type 2 diabetes mellitus with peripheral vascular disease ([facility]) 12/03/2012 3 stents to left leg Urge [...] DX W/COLLJ SPEC WHEN PFRMD 03/08/2006 Colonoscopy [facility] - no polyps COLONOSCOPY FLX DX W/COLLJ SPEC WHEN PFRMD 08/14/2000 Colonoscopy [facility]- no polyps COLONOSCOPY FLX DX W/COLLJ SPEC WHEN PFRMD 02/26/2013 Colonoscopy, no polyps, recheck 10 yrs CORONARY ARTERY BYP W/VEIN & ARTERY GRAFT 3 VEIN 05/2012 CABG, three grafts CORONARY STENT EA VESSEL 2004 Drug eluting ESOPHAGOGASTRODUODENOSCOPY TRANSORAL DIAGNOSTIC 03/08/2006 EGD [facility] PAST SURGICAL HISTORY OF Left 01/01/2020 left [...] Azul Pardo APRN.COURTNEY documented in this encounter [facility] 10-10-2022 Note [facility] 10-10-2022 Note HNO ID: [id number] Author: Radha Marina DO Service: ? Author Type: Physician Type: Progress Notes Filed: 10/25/2022 10:22 PM Note Text: This office note has been dictated. Radha Marina DO [facility] 10-10-2022 History of Present illness Narrative This office note has been dictated. Radha Marina DO NAME: [facility] NO: [id number] DATE OF SERVICE: 10/10/2022 Subjective: Mr. Faith [...] a right leg bypass years ago at [facility]. He is unsure of when [...] concerns. Radha Marina D.O. KB/089 Audio #: [id number] Date Dictated: 10/10/2022 08:52:17 Date Typed: 10/16/2022 07:44:18 Date Revised: documented in this encounter [facility] 10-03-2022 Note [facility] 10-03-2022 History of Present illness [...] like to speak with a social work merchandise team manager to help give you support for any [...] you up for automated weekly questionnaires through [employer] This is an easy way for us [...] and End outreach. documented in this encounter [facility] 09-29-2022 Note HNO ID: [id number] Author: Corin Cardenas MA Service: ? Author Type: Automatic Furnace Operator Type: Progress Notes Filed: 09/30/2022 1:33 PM Note Text: Scan on 09/29/2022 9:50 AM by External Provider: Michelle Cardenas MA [facility] 09-29-2022 History of Present illness Narrative Scan on 09/29/2022 9:50 AM by External Provider: Michelle Cardenas MA documented in this encounter [facility] 09-28-2022 Miscellaneous Notes Patient notified of results and provider's instructions. Patient verbalizes understanding. Jameel Marquez LPN Let patient know that his a1c is 6.9 which is up some but overall stable. Cholesterol is okay. Metabolic panel wnl. PSA level is just mildly elevated. Recheck in 1-2 months. Maylin Pimentel PA-C documented in this encounter [facility] 09-27-2022 Note [facility] 09-27-2022 History of Present illness [...] of right lower extremity with intermittent claudication ([facility]) 04/04/2021 Benign non-nodular prostatic hyperplasia with lower urinary tract symptoms 03/01/2016 Bilateral carotid artery disease (HCC) 10/25/2015 US 11/2016: 20-40% on right 60-80% on left US 11/2017: stable with 20-40% on right and 60-80% on left Blood type O+ 03/29/2020 Cardiomyopathy, ischemic 09/26/2013 Chronic pain 09/11/[address] Barnett. COLD (chronic obstructive lung disease) ([facility]) 02/01/2015 Moderate: Seeing Dr. Slaughter Controlled type 2 diabetes mellitus without complication, without long-term current use of insulin ([facility]) 06/20/2016 Coronary artery disease involving coronary bypass graft of [place] heart without angina pectoris 02/01/[address] Garcia pacemaker/defib, 3 stents and 4 vessle CABG Current use of proton pump inhibitor 03/24/2017 DDD (degenerative disc disease), lumbar 06/13/2013 Diabetic eye exam ([facility]) 11/13/2016 Last done: 11/13/2016 Esophageal spasm 04/18/2017 [...] DX W/COLLJ SPEC WHEN PFRMD 03/08/2006 Colonoscopy [facility] - no polyps COLONOSCOPY FLX DX W/COLLJ SPEC WHEN PFRMD 08/14/2000 Colonoscopy [facility]- no polyps COLONOSCOPY FLX DX W/COLLJ SPEC WHEN PFRMD 02/26/2013 Colonoscopy, no polyps, recheck 10 yrs CORONARY ARTERY BYP W/VEIN & ARTERY GRAFT 3 VEIN 05/2012 CABG, three grafts CORONARY STENT EA VESSEL 2004 Drug eluting ESOPHAGOGASTRODUODENOSCOPY TRANSORAL DIAGNOSTIC 03/08/2006 EGD [facility] PAST SURGICAL HISTORY OF Left 01/01/2020 left [...] Dr. Barnett. COLD (chronic obstructive lung disease) ([facility]) 02/01/2015 Moderate: Seeing Dr. Slaughter Controlled type 2 diabetes mellitus without complication, without long-term current use of insulin ([facility]) 06/20/2016 Coronary artery disease involving coronary bypass graft of [place] heart without angina pectoris 02/01/[address] [...] DX W/COLLJ SPEC WHEN PFRMD 03/08/2006 Colonoscopy [facility] - no polyps COLONOSCOPY FLX DX W/COLLJ SPEC WHEN PFRMD 08/14/2000 Colonoscopy [facility]- no polyps COLONOSCOPY FLX DX W/COLLJ SPEC WHEN PFRMD 02/26/2013 Colonoscopy, no polyps, recheck 10 yrs CORONARY ARTERY BYP W/VEIN & ARTERY GRAFT 3 VEIN 05/2012 CABG, three grafts CORONARY STENT EA VESSEL 2004 Drug eluting ESOPHAGOGASTRODUODENOSCOPY TRANSORAL DIAGNOSTIC 03/08/2006 EGD [facility] PAST SURGICAL HISTORY OF Left 01/01/2020 left [...] tablet by mouth twice daily. Per Dr. Moodispaw nitroglycerin sublingual (NITROQUICK) 0.4 mg SL tablet [...] artery disease involving coronary bypass graft of [place] heart without angina pectoris - ICD9: 414.05, [...] Maylin Pimentel PA-C documented in this encounter [facility] 09-21-2022 Miscellaneous Notes Spoke with Cortez and information listed below given. She will contact pt's insurance assistant for the Eliquis. Jennifer Hawthorne LPN His insurance assistant prescribes eliquis. Needs to reach out to [...] Vivien Francois Pss documented in this encounter [facility] 08-31-2022 Note [facility] 08-31-2022 History of Present illness [...] like to speak with a social work merchandise team manager to help give you support for any [...] you up for automated weekly questionnaires through [employer] This is an easy way for us [...] and End outreach. documented in this encounter [facility] 08-25-2022 Note [facility] 08-25-2022 History of Present illness Narrative Scan on 08/24/2022 1:55 PM by External Provider: Consultation - Pulmonary Scan on 08/23/2022 6:21 PM by External Provider: Stress Test Please review. Corin Cardenas MA documented in this encounter [facility] 08-01-2022 Note [facility] 07-31-2022 Miscellaneous Notes Spoke with [...] but she thinks this is something different. Cortez states pt spends a lot of his [...] Maylin Pimentel PA-C documented in this encounter [facility] 07-28-2022 History of Present illness Narrative INSIGHT CDM TELEPHONIC OUTREACH Provider Action/FYI: COPD Has vestibular testing scheduled for 08/03 Recent fall. Referral to pulmonary for increased wheezing/congestion- CXR negative-advised mucinex ,cough and deep breathing. Contact made with patient: No - Left message Vicky my name is Lopez Brown RN your Optimization Manager from the [facility] I am calling today for your bi-weekly check in. I am sorry I missed your call. I will reach out to you again tomorrow. (if the third call I will reach out to you again next week) Enter next patient outreach date for the following business day using the Track Pt Outreach. End outreach. documented in this encounter [facility] 07-26-2022 History of Present illness Narrative Chief Complaint Patient presents with: ER F/U: [facility] 07/19/22 HPI Francisco Faith is a 76 [...] Dr. Barnett. COLD (chronic obstructive lung disease) ([facility]) 02/01/2015 Moderate: Seeing Dr. Slaughter Controlled type 2 diabetes mellitus without complication, without long-term current use of insulin ([facility]) 06/20/2016 Coronary artery disease involving coronary bypass graft of [place] heart without angina pectoris 02/01/[address] Garcia pacemaker/defib, 3 stents and 4 vessle CABG Current use of proton pump inhibitor 03/24/2017 DDD (degenerative disc disease), lumbar 06/13/2013 Diabetic eye exam ([facility]) 11/13/2016 Last done: 11/13/2016 Esophageal spasm 04/18/2017 [...] disease, unspecified (HCC) PVD (peripheral vascular disease) ([facility]) 12/03/2012 3 stents to left leg S/P [...] DX W/COLLJ SPEC WHEN PFRMD 03/08/2006 Colonoscopy [facility]que - no polyps COLONOSCOPY FLX DX W/COLLJ SPEC WHEN PFRMD 08/14/2000 Colonoscopy [facility]- no polyps COLONOSCOPY FLX DX W/COLLJ SPEC WHEN PFRMD 02/26/2013 Colonoscopy, no polyps, recheck 10 yrs CORONARY ARTERY BYP W/VEIN & ARTERY GRAFT 3 VEIN 05/2012 CABG, three grafts CORONARY STENT EA VESSEL 2004 Drug eluting ESOPHAGOGASTRODUODENOSCOPY TRANSORAL DIAGNOSTIC 03/08/2006 EGD [facility] PAST SURGICAL HISTORY OF Left 01/01/2020 left [...] mammogram - US BREAST LTD LT - [facility] DIAGNOSTIC LT 6. Tinea corporis - ICD9: 110.5, ICD10: B35.4 Start nystatin powder application in b/l axilla. Follow up if not improving. 7. Encounter for immunization - ICD9: V03.89, ICD10: Z23 - INFLUENZA SEASONAL QUADRIVALENT HIGH DOSE AGE 65+ Maylin Pimentel PA-C documented in this encounter [facility] 06-27-2022 History of Present illness Narrative INSIGHT CDM TELEPHONIC OUTREACH Provider Action/FYI: COPD Continues to have dizziness. Patient was left # on VM to schedule for vascular to be evaluated. Patient did not have number and did not make appointment Given number to vascular [facility]. Advised patient to call after we hang [...] like to speak with a social work merchandise team manager to help give you support for any [...] you up for automated weekly questionnaires through [employer] This is an easy way for us [...] and End outreach. documented in this encounter [facility] 05-25-2022 History of Present illness Narrative POPULATION HEALTH NAVIGATION OUTREACH Action/May 25, 2022 Called and spoke with patient. [...] this appointment? N/A Reason for Outreach [facility] Payer: Payor: MEDICARE / Plan: MEDICARE A [...] like to speak with a social work merchandise team manager to help give you support for any [...] you up for automated weekly questionnaires through [employer] This is an easy way for us [...] the Track Pt Outreach and End outreach. INSIGHT [facility] TELEPHONIC OUTREACH Provider Action/FYI: Contact made with patient: No - Left message Vicky my name is Lopez Brown RN your Optimization Manager from the [facility] I am calling today for your bi-weekly check in. I am sorry I missed your call. I will reach out to you again tomorrow. (if the third call I will reach out to you again next week) Enter next patient outreach date for the following business day using the Track Pt Outreach. End outreach. documented in this encounter [facility] 03-28-2022 History of Present illness Narrative INSIGHT [facility] TELEPHONIC OUTREACH Provider Action/FYI: Contact made with patient: No - Left message Vicky my name is Giselle Cortez RN your Optimization Manager from the [facility] I am calling today for your monthly check in. I am sorry I missed your call. I will reach out to you again next month. (if the third call I will reach out to you again next week) Enter next patient outreach date for the following business day using the Track Pt Outreach. End outreach. documented in this encounter [facility] 03-01-2022 Miscellaneous Notes Pt called and notified [...] Jameel Marquez LPN documented in this encounter [facility] 02-27-2022 History of Present illness Narrative Radiology [...] 2022 1:18 PM documented in this encounter [facility] 02-27-2022 History of Present illness Narrative INSIGHT [...] like to speak with a social work merchandise team manager to help give you support for any [...] you up for automated weekly questionnaires through [employer] This is an easy way for us [...] and End outreach. documented in this encounter [facility] 02-14-2022 Miscellaneous Notes Please assist pt in rescheduling the appointment that he no showed. Thank you. Jameel Marquez LPN Patient no showed his visit. Needs rescheduled. Last office visit: 09/06/21 F/u scheduled: none 90 day supply sent to [facility] on 01/17/22. Giselle Devlin Ma Patient has [...] patient needs the short term to [facility] in [place] and the 3 month to go to [facility] in chart [facility] documented in this encounter [facility] 01-17-2022 Miscellaneous Notes The following approved medication [...] RX INSTRUCTIONS: Patient needs 10 days to [facility] [place]; I made a copy and attached to correct pharmacy; attached long-term to correct Pharmacy. Please send today out of medication. Patient aware RX will be sent to pharmacy. No need to notify patient. Patient aware RX escripted to mail away pharmacy. No need to notify patient. Kori Riggs Pss documented in this encounter [facility] 01-02-2022 History of Present illness Narrative [facility] TELEPHONIC OUTREACH Provider Action/FYI: Patient reports he is doing good, had carotid aretery US completed today at [facility], ordered by cardiology. Patient states cardiology discontinued [...] like to speak with a social work merchandise team manager to help give you support for any [...] you up for automated weekly questionnaires through [employer] This is an easy way for us [...] and End outreach. documented in this encounter [facility] 12-12-2021 History of Present illness Narrative [facility] TELEPHONIC OUTREACH Provider Action/FYI: Pt reports he [...] like to speak with a social work merchandise team manager to help give you support for any [...] you up for automated weekly questionnaires through [employer] This is an easy way for us [...] and End outreach. documented in this encounter [facility] 12-09-2021 History of Present illness Narrative [facility] TELEPHONIC OUTREACH Provider Action/FYI: Contact made with patient: No - Left message Hello my name is Giselle Cortez RN your Optimization Manager from the [facility] I am calling today for your bi-weekly check in. I am sorry I missed your call. I will reach out to you again tomorrow. (if the third call I will reach out to you again next week) Enter next patient outreach date for the following business using the [employer] Pt Out[employer]. End outreach. documented in this encounter [facility] 10-27-2021 History of Present illness Narrative [facility] TELEPHONIC OUTREACH Provider Action/FYI: Pt reports he [...] like to speak with a social work merchandise team manager to help give you support for any [...] you up for automated weekly questionnaires through [employer] This is an easy way for us [...] and End outreach. documented in this encounter [facility] 10-14-2021 Miscellaneous Notes Last refill Norvasc 08/20/20 [...] Vivien Francois Pss documented in this encounter [facility] 09-30-2021 History of Present illness Narrative INSIGHT [facility] TELEPHONIC OUTREACH Provider Action/FYI: Pt reports he is doing good, states BP has been good, no high readings . Pt has follow up appt at [facility] 10/15/21 Pt had no questions/concerns/needs at this [...] like to speak with a social work merchandise team manager to help give you support for any [...] you up for automated weekly questionnaires through [employer] This is an easy way for us [...] and End outreach. documented in this encounter [facility] 12-16-2020 Note Post Operative Note: Post-Procedure Diagnosis: 1. 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 Regular Astigmatism Right Eye Procedure: 1. Cataract Extraction with Toric Intraocular Lens Implant Right Eye Surgeon: Andre Roque MD Resident/Fellow/Other Residential Service Technician: None Estimated Blood Loss (mL): none Specimen: [...] Completion Last Updated: 16-Dec-2020 12:49 by Andre Roque) [facility] 12-16-2020 Note History & Physical R eviewed: [...] Last Updated: 16-Dec-2020 11:11 by Andre Roque) [facility] 11-25-2020 Note Post Operative Note: Post-Procedure Diagnosis: 1. 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 Regular Astigmatism Left Eye Procedure: 1. Cataract Extraction with Toric Intraocular Lens Implant Left Eye Surgeon: Andre Roque MD Resident/Fellow/Other Residential Service Technician: None Estimated Blood Loss (mL): none Specimen: [...] Last Updated: 25-Nov-2020 08:52 by Andre Roque) [facility] 11-25-2020 Note History & Physical R eviewed: [...] Last Updated: 25-Nov-2020 07:22 by Andre Roque) [facility] documented as of this encounter (statuses as of 09/30/2021) [facility] of Past illness Narrative* Problem Noted Date Resolved Date 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 11/08/2020 12/07/2020 Regular astigmatism of left eye 10/27/2020 12/07/2020 Colon cancer screening 09/15/2014 0 Well adult exam 05/19/2014 07/17/2019 Overview: Last done 06/03/2019 documented as of this encounter (statuses as of 10/14/2021) [facility] of [facility] Narrative* Problem Noted Date Resolved Date 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 11/08/2020 12/07/2020 Regular astigmatism of left eye 10/27/2020 12/07/2020 Colon cancer screening 09/15/2014 0 Well adult exam 05/19/2014 07/17/2019 Overview: Last done 06/03/2019 documented as of this encounter (statuses as of 10/27/2021) [facility] Narrative* Problem Noted Date Resolved Date 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 11/08/2020 12/07/2020 Regular astigmatism of left eye 10/27/2020 12/07/2020 Colon cancer screening 09/15/2014 0 Well adult exam 05/19/2014 07/17/2019 Overview: Last done 06/03/2019 documented as of this encounter (statuses as of 12/09/2021) [facility] Narrative* Problem Noted Date Resolved Date 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 11/08/2020 12/07/2020 Regular astigmatism of left eye 10/27/2020 12/07/2020 Colon cancer screening 09/15/2014 0 Well adult exam 05/19/2014 07/17/2019 Overview: Last done 06/03/2019 documented as of this encounter (statuses as of 12/12/2021) [facility] Narrative* Problem Noted Date Resolved Date 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 11/08/2020 12/07/2020 Regular astigmatism of left eye 10/27/2020 12/07/2020 Colon cancer screening 09/15/2014 0 Well adult exam 05/19/2014 07/17/2019 Overview: Last done 06/03/2019 documented as of this encounter (statuses as of 01/02/2022) [facility] Narrative* Problem Noted Date Resolved Date 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 11/08/2020 12/07/2020 Regular astigmatism of left eye 10/27/2020 12/07/2020 Colon cancer screening 09/15/2014 0 Well adult exam 05/19/2014 07/17/2019 Overview: Last done 06/03/2019 documented as of this encounter (statuses as of 01/18/2022) [facility] Narrative* Problem Noted Date Resolved Date 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 11/08/2020 12/07/2020 Regular astigmatism of left eye 10/27/2020 12/07/2020 Colon cancer screening 09/15/2014 0 Well adult exam 05/19/2014 07/17/2019 Overview: Last done 06/03/2019 documented as of this encounter (statuses as of 01/27/2022) [facility] Narrative* Problem Noted Date Resolved Date 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 11/08/2020 12/07/2020 Regular astigmatism of left eye 10/27/2020 12/07/2020 Colon cancer screening 09/15/2014 0 Well adult exam 05/19/2014 07/17/2019 Overview: Last done 06/03/2019 documented as of this encounter (statuses as of 02/14/2022) [facility] Narrative* Problem Noted Date Resolved Date 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 11/08/2020 12/07/2020 Regular astigmatism of left eye 10/27/2020 12/07/2020 Colon cancer screening 09/15/2014 0 Well adult exam 05/19/2014 07/17/2019 Overview: Last done 06/03/2019 documented as of this encounter (statuses as of 02/27/2022) [facility] Narrative* Problem Noted Date Resolved Date 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 11/08/2020 12/07/2020 Regular astigmatism of left eye 10/27/2020 12/07/2020 Colon cancer screening 09/15/2014 0 Well adult exam 05/19/2014 07/17/2019 Overview: Last done 06/03/2019 documented as of this encounter (statuses as of 02/28/2022) [facility] Narrative* Problem Noted Date Resolved Date 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 11/08/2020 12/07/2020 Regular astigmatism of left eye 10/27/2020 12/07/2020 Colon cancer screening 09/15/2014 0 Well adult exam 05/19/2014 07/17/2019 Overview: Last done 06/03/2019 documented as of this encounter (statuses as of 03/01/2022) [facility] Narrative* Problem Noted Date Resolved Date 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 11/08/2020 12/07/2020 Regular astigmatism of left eye 10/27/2020 12/07/2020 Colon cancer screening 09/15/2014 0 Well adult exam 05/19/2014 07/17/2019 Overview: Last done 06/03/2019 documented as of this encounter (statuses as of 03/28/2022) [facility] Narrative* Problem Noted Date Resolved Date 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 11/08/2020 12/07/2020 Regular astigmatism of left eye 10/27/2020 12/07/2020 Colon cancer screening 09/15/2014 0 Well adult exam 05/19/2014 07/17/2019 Overview: Last done 06/03/2019 documented as of this encounter (statuses as of 05/25/2022) [facility] Narrative* Problem Noted Date Resolved Date 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 11/08/2020 12/07/2020 Regular astigmatism of left eye 10/27/2020 12/07/2020 Colon cancer screening 09/15/2014 0 Well adult exam 05/19/2014 07/17/2019 Overview: Last done 06/03/2019 documented as of this encounter (statuses as of 06/27/2022) [facility] Narrative* Problem Noted Date Resolved Date 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 11/08/2020 12/07/2020 Regular astigmatism of left eye 10/27/2020 12/07/2020 Colon cancer screening 09/15/2014 0 Well adult exam 05/19/2014 07/17/2019 Overview: Last done 06/03/2019 documented as of this encounter (statuses as of 07/26/2022) [facility] Narrative* Problem Noted Date Resolved Date 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 11/08/2020 12/07/2020 Regular astigmatism of left eye 10/27/2020 12/07/2020 Colon cancer screening 09/15/2014 0 Well adult exam 05/19/2014 07/17/2019 Overview: Last done 06/03/2019 documented as of this encounter (statuses as of 07/31/2022) [facility] Narrative* Problem Noted Date Resolved Date 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 11/08/2020 12/07/2020 Regular astigmatism of left eye 10/27/2020 12/07/2020 Colon cancer screening 09/15/2014 0 Well adult exam 05/19/2014 07/17/2019 Overview: Last done 06/03/2019 documented as of this encounter (statuses as of 08/25/2022) [facility] Narrative* Problem Noted Date Resolved Date 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 11/08/2020 12/07/2020 Regular astigmatism of left eye 10/27/2020 12/07/2020 Colon cancer screening 09/15/2014 0 Well adult exam 05/19/2014 07/17/2019 Overview: Last done 06/03/2019 documented as of this encounter (statuses as of 09/01/2022) [facility] Narrative* Problem Noted Date Resolved Date 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 11/08/2020 12/07/2020 Regular astigmatism of left eye 10/27/2020 12/07/2020 Colon cancer screening 09/15/2014 0 Well adult exam 05/19/2014 07/17/2019 Overview: Last done 06/03/2019 documented as of this encounter (statuses as of 09/13/2022) [facility] Narrative* Problem Noted Date Resolved Date 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 11/08/2020 12/07/2020 Regular astigmatism of left eye 10/27/2020 12/07/2020 Colon cancer screening 09/15/2014 0 Well adult exam 05/19/2014 07/17/2019 Overview: Last done 06/03/2019 documented as of this encounter (statuses as of 09/21/2022) [facility] Narrative* Problem Noted Date Resolved Date 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 11/08/2020 12/07/2020 Regular astigmatism of left eye 10/27/2020 12/07/2020 Colon cancer screening 09/15/2014 0 Well adult exam 05/19/2014 07/17/2019 Overview: Last done 06/03/2019 documented as of this encounter (statuses as of 09/27/2022) [facility] Narrative* Problem Noted Date Resolved Date 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 11/08/2020 12/07/2020 Regular astigmatism of left eye 10/27/2020 12/07/2020 Colon cancer screening 09/15/2014 0 Well adult exam 05/19/2014 07/17/2019 Overview: Last done 06/03/2019 documented as of this encounter (statuses as of 09/28/2022) [facility] Narrative* Problem Noted Date Resolved Date 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 11/08/2020 12/07/2020 Regular astigmatism of left eye 10/27/2020 12/07/2020 Colon cancer screening 09/15/2014 0 Well adult exam 05/19/2014 07/17/2019 Overview: Last done 06/03/2019 documented as of this encounter (statuses as of 09/30/2022) [facility] Narrative* Problem Noted Date Resolved Date 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 11/08/2020 12/07/2020 Regular astigmatism of left eye 10/27/2020 12/07/2020 Colon cancer screening 09/15/2014 0 Well adult exam 05/19/2014 07/17/2019 Overview: Last done 06/03/2019 documented as of this encounter (statuses as of 10/03/2022) [facility] Narrative* Problem Noted Date Resolved Date 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 11/08/2020 12/07/2020 Regular astigmatism of left eye 10/27/2020 12/07/2020 Colon cancer screening 09/15/2014 0 Well adult exam 05/19/2014 07/17/2019 Overview: Last done 06/03/2019 documented as of this encounter (statuses as of 10/17/2022) [facility] Narrative* Problem Noted Date Resolved Date 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 11/08/2020 12/07/2020 Regular astigmatism of left eye 10/27/2020 12/07/2020 Colon cancer screening 09/15/2014 0 Well adult exam 05/19/2014 07/17/2019 Overview: Last done 06/03/2019 documented as of this encounter (statuses as of 10/23/2022) [facility] Narrative* Problem Noted Date Resolved Date 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 11/08/2020 12/07/2020 Regular astigmatism of left eye 10/27/2020 12/07/2020 Colon cancer screening 09/15/2014 0 Well adult exam 05/19/2014 07/17/2019 Overview: Last done 06/03/2019 documented as of this encounter (statuses as of 10/26/2022) [facility] Narrative* Problem Noted Date Resolved Date 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 11/08/2020 12/07/2020 Regular astigmatism of left eye 10/27/2020 12/07/2020 Colon cancer screening 09/15/2014 0 Well adult exam 05/19/2014 07/17/2019 Overview: Last done 06/03/2019 documented as of this encounter (statuses as of 11/02/2022) [facility] Narrative* Problem Noted Date Resolved Date 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 11/08/2020 12/07/2020 Regular astigmatism of left eye 10/27/2020 12/07/2020 Colon cancer screening 09/15/2014 0 Well adult exam 05/19/2014 07/17/2019 Overview: Last done 06/03/2019 documented as of this encounter (statuses as of 11/03/2022) [facility] Narrative* Problem Noted Date Resolved Date 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 11/08/2020 12/07/2020 Regular astigmatism of left eye 10/27/2020 12/07/2020 Colon cancer screening 09/15/2014 0 Well adult exam 05/19/2014 07/17/2019 Overview: Last done 06/03/2019 documented as of this encounter (statuses as of 11/08/2022) [facility] N[facility]* Problem Noted Date Resolved Date 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 11/08/2020 12/07/2020 Regular astigmatism of left eye 10/27/2020 12/07/2020 Colon cancer screening 09/15/2014 0 Well adult exam 05/19/2014 07/17/2019 Overview: Last done 06/03/2019 documented as of this encounter (statuses as of 11/14/2022) [facility] Narrative* Problem Noted Date Resolved Date 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 11/08/2020 12/07/2020 Regular astigmatism of left eye 10/27/2020 12/07/2020 Colon cancer screening 09/15/2014 0 Well adult exam 05/19/2014 07/17/2019 Overview: Last done 06/03/2019 documented as of this encounter (statuses as of 12/06/2022) [facility] Narr[facility]* Problem Noted Date Resolved Date 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 11/08/2020 12/07/2020 Regular astigmatism of left eye 10/27/2020 12/07/2020 Colon cancer screening 09/15/2014 0 Well adult exam 05/19/2014 07/17/2019 Overview: Last done 06/03/2019 documented as of this encounter (statuses as of 01/02/2023) [facility] Narrative* Problem Noted Date Resolved Date 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 11/08/2020 12/07/2020 Regular astigmatism of left eye 10/27/2020 12/07/2020 Colon cancer screening 09/15/2014 0 Well adult exam 05/19/2014 07/17/2019 Overview: Last done 06/03/2019 documented as of this encounter (statuses as of 01/12/2023) [facility] N[facility]ative* Problem Noted Date Diagnosed Date Resolved Date Combined forms of age-relate d cataract of left eye 11/08/2020 12/07/2020 Regular astigmatism of left eye 10/27/2020 12/07/2020 Colon cancer screening 09/15/201407/17 Well adult exam 05/19/2014 07/17/2019 Overview: Last done 06/03/2019 documented as of this encounter (statuses as of 01/18/2023) [facility] N[facility]* Problem Noted Date Diagnosed Date Resolved Date Combined forms of age-relate d cataract of left eye 11/08/2020 12/07/2020 Regular astigmatism of left eye 10/27/2020 12/07/2020 Colon cancer screening 09/15/201407/17 Well adult exam 05/19/2014 07/17/2019 Overview: Last done 06/03/2019 documented as of this encounter (statuses as of 01/18/2023) [facility] Narrative* Problem Noted Date Diagnosed Date Resolved Date Combined forms of age-relate d cataract of left eye 11/08/2020 12/07/2020 Regular astigmatism of left eye 10/27/2020 12/07/2020 Colon cancer screening 09/15/201407/17 Well adult exam 05/19/2014 07/17/2019 Overview: Last done 06/03/2019 documented as of this encounter (statuses as of 02/14/2023) [facility] Narrative* Problem Noted Date Diagnosed Date Resolved Date Combined forms of age-relate d cataract of left eye 11/08/2020 12/07/2020 Regular astigmatism of left eye 10/27/2020 12/07/2020 Colon cancer screening 09/15/201407/17 Well adult exam 05/19/2014 07/17/2019 Overview: Last done 06/03/2019 documented as of this encounter (statuses as of 02/15/2023) [facility] Narr[facility]* Problem Noted Date Diagnosed Date Resolved Date Combined forms of age-relate d cataract of left eye 11/08/2020 12/07/2020 Regular astigmatism of left eye 10/27/2020 12/07/2020 Colon cancer screening 09/15/201407/17 Well adult exam 05/19/2014 07/17/2019 Overview: Last done 06/03/2019 documented as of this encounter (statuses as of 02/19/2023) [facility] Narr[facility]* Problem Noted Date Diagnosed Date Resolved Date Combined forms of age-relate d cataract of left eye 11/08/2020 12/07/2020 Regular astigmatism of left eye 10/27/2020 12/07/2020 Colon cancer screening 09/15/201407/17 Well adult exam 05/19/2014 07/17/2019 Overview: Last done 06/03/2019 documented as of this encounter (statuses as of 02/19/2023) [facility] Narr[facility]* Problem Noted Date Diagnosed Date Resolved Date Combined forms of age-relate d cataract of left eye 11/08/2020 12/07/2020 Regular astigmatism of left eye 10/27/2020 12/07/2020 Colon cancer screening 09/15/201407/17 Well adult exam 05/19/2014 07/17/2019 Overview: Last done 06/03/2019 documented as of this encounter (statuses as of 03/06/2023) [facility]* Problem Noted Date Diagnosed Date Resolved Date Combined forms of age-relate d cataract of left eye 11/08/2020 12/07/2020 Regular astigmatism of left eye 10/27/2020 12/07/2020 Colon cancer screening 09/15/201407/17 Well adult exam 05/19/2014 07/17/2019 Overview: Last done 06/03/2019 documented as of this encounter (statuses as of 03/16/2023) [facility] N[facility]* Problem Noted Date Diagnosed Date Resolved Date Combined forms of age-relate d cataract of left eye 11/08/2020 12/07/2020 Regular astigmatism of left eye 10/27/2020 12/07/2020 Colon cancer screening 09/15/201407/17 Well adult exam 05/19/2014 07/17/2019 Overview: Last done 06/03/2019 documented as of this encounter (statuses as of 03/20/2023) [facility]* Problem Noted Date Diagnosed Date Resolved Date Combined forms of age-relate d cataract of left eye 11/08/2020 12/07/2020 Regular astigmatism of left eye 10/27/2020 12/07/2020 Colon cancer screening 09/15/201407/17 Well adult exam 05/19/2014 07/17/2019 Overview: Last done 06/03/2019 documented as of this encounter (statuses as of 03/31/2023) [facility] N[facility]* Problem Noted Date Diagnosed Date Resolved Date Combined forms of age-relate d cataract of left eye 11/08/2020 12/07/2020 Regular astigmatism of left eye 10/27/2020 12/07/2020 Colon cancer screening 09/15/201407/17 Well adult exam 05/19/2014 07/17/2019 Overview: Last done 06/03/2019 documented as of this encounter (statuses as of 03/31/2023) [facility] N[facility]* Problem Noted Date Diagnosed Date Resolved Date Combined forms of age-relate d cataract of left eye 11/08/2020 12/07/2020 Regular astigmatism of left eye 10/27/2020 12/07/2020 Colon cancer screening 09/15/201407/17 Well adult exam 05/19/2014 07/17/2019 Overview: Last done 06/03/2019 documented as of this encounter (statuses as of 04/02/2023) [facility] Narr[facility]* Problem Noted Date Diagnosed Date Resolved Date Combined forms of age-relate d cataract of left eye 11/08/2020 12/07/2020 Regular astigmatism of left eye 10/27/2020 12/07/2020 Colon cancer screening 09/15/201407/17 Well adult exam 05/19/2014 07/17/2019 Overview: Last done 06/03/2019 documented as of this encounter (statuses as of 04/06/2023) [facility] Narr[facility]* Problem Noted Date Diagnosed Date Resolved Date Combined forms of age-relate d cataract of left eye 11/08/2020 12/07/2020 Regular astigmatism of left eye 10/27/2020 12/07/2020 Colon cancer screening 09/15/201407/17 Well adult exam 05/19/2014 07/17/2019 Overview: Last done 06/03/2019 documented as of this encounter (statuses as of 04/06/2023) [facility] History of Past illness Narrative* Problem Noted Date Diagnosed Date Resolved Date Combined forms of age-relate d cataract of left eye 11/08/2020 12/07/2020 Regular astigmatism of left eye 10/27/2020 12/07/2020 Colon cancer screening 09/15/201407/17 Well adult exam 05/19/2014 07/17/2019 Overview: Last done 06/03/2019 documented as of this encounter (statuses as of 04/18/2023) [facility] History of Past illness Narrative* Problem Noted Date Diagnosed Date Resolved Date Combined forms of age-relate d cataract of left eye 11/08/2020 12/07/2020 Regular astigmatism of left eye 10/27/2020 12/07/2020 Colon cancer screening 09/15/201407/17 Well adult exam 05/19/2014 07/17/2019 Overview: Last done 06/03/2019 documented as of this encounter (statuses as of 05/02/2023) [facility] History of Past illness Narrative* Problem Noted Date Diagnosed Date Resolved Date Combined forms of age-relate d cataract of left eye 11/08/2020 12/07/2020 Regular astigmatism of left eye 10/27/2020 12/07/2020 Colon cancer screening 09/15/201407/17 Well adult exam 05/19/2014 07/17/2019 Overview: Last done 06/03/2019 documented as of this encounter (statuses as of 05/13/2023) [facility] History of Past illness Narrative* Problem Noted Date Diagnosed Date Resolved Date Combined forms of age-relate d cataract of left eye 11/08/2020 12/07/2020 Regular astigmatism of left eye 10/27/2020 12/07/2020 Colon cancer screening 09/15/201407/17 Well adult exam 05/19/2014 07/17/2019 Overview: Last done 06/03/2019 documented as of this encounter (statuses as of 05/28/2023) [facility] History of Past illness Narrative* Problem Noted Date Diagnosed Date Resolved Date Combined forms of age-relate d cataract of left eye 11/08/2020 12/07/2020 Regular astigmatism of left eye 10/27/2020 12/07/2020 Colon cancer screening 09/15/201407/17 Well adult exam 05/19/2014 07/17/2019 Overview: Last done 06/03/2019 documented as of this encounter (statuses as of 06/05/2023) [facility] History of Past illness Narrative* Problem Noted Date Diagnosed Date Resolved Date Combined forms of age-relate d cataract of left eye 11/08/2020 12/07/2020 Regular astigmatism of left eye 10/27/2020 12/07/2020 Colon cancer screening 09/15/201407/17 Well adult exam 05/19/2014 07/17/2019 Overview: Last done 06/03/2019 documented as of this encounter (statuses as of 06/08/2023) [facility] History of Past illness Narrative* Problem Noted Date Diagnosed Date Resolved Date Combined forms of age-relate d cataract of left eye 11/08/2020 12/07/2020 Regular astigmatism of left eye 10/27/2020 12/07/2020 Colon cancer screening 09/15/201407/17 Well adult exam 05/19/2014 07/17/2019 Overview: Last done 06/03/2019 documented as of this encounter (statuses as of 06/23/2023) [facility] Diagnosis Esophageal spasm Dyskinesia of esophagus [facility] encounter [facility] Diagnosis 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) Type II or unspecified type diabetes mellitus without mention of complication, not stated as uncontrolled [facility]* Diagnosis Dizziness Dizziness and giddiness Fall, initial encounter [facility]* Diagnosis Fall, initial encounter- Primary Costochondritis Tietze's disease Wheezing Acute cough Breast development in males Hypertrophy of breast Tinea corporis Dermatophytosis of the body Encounter for immunization Need for other specified prophylactic vaccination against single bacterial disease [facility] Diagnosis Stenosis of left carotid artery- Primary Occlusion and stenosis of carotid artery without mention of cerebral infarction Peripheral arterial disease (HCC) Peripheral vascular disease, unspecified [facility]* Diagnosis Medicare annual wellness visit, subsequent- [...] artery disease involving coronary bypass graft of [place] heart without angina pectoris Chronic obstructive pulmonary [...] mention of cerebral infarction Diabetic eye exam ([facility]) Type II or unspecified type diabetes mellitus without mention of complication, not stated as uncontrolled [facility] Diagnosis Elevated PSA- Primary Elevated prostate specific antigen (PSA) [facility]* Diagnosis Right calf pain- Primary Cellulitis of skin Cellulitis and abscess of unspecified site [facility] Cellulitis of skin- Primary Cellulitis and abscess of unspecified site [facility] Diagnosis Occlusion and stenosis of unspecified carotid artery- Primary Screening for nephropathy [facility]* Diagnosis Skin mass- Primary Localized superficial swelling, mass, or lump Cellulitis of skin Cellulitis and abscess of unspecified site [facility] encounter [facility]* Diagnosis Soft tissue mass- Primary Disorders of soft tissue, unspecified Abscess Cellulitis and abscess of unspecified site [facility] Diagnosis Sebaceous cyst Abscess Cellulitis and abscess of unspecified site [facility] Diagnosis Occlusion and stenosis of unspecified carotid artery- Primary Carotid artery stenosis, asymptomatic, left [facility]* Diagnosis Right wrist pain- Primary Pain in joint, forearm [facility] Diagnosis Right wrist pain- Primary Pain in joint, forearm Pain of right hand Pain in limb [facility]* Diagnosis Arthritis of carpometacarpal (CMC) joint of right thumb- Primary [facility] Diagnosis Chronic cough- Primary Cough [facility] encounter [facility]* Diagnosis Type 2 diabetes mellitus with peripheral vascular disease (HCC)- Primary Controlled type 2 diabetes mellitus with diabetic peripheral angiopathy without gangrene, without long-term current use of insulin (HCC) 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) Type II or unspecified type diabetes mellitus without mention of complication, not stated as uncontrolled Diabetic eye exam ([facility]) Type II or unspecified type diabetes mellitus without mention of complication, not stated as uncontrolled Essential hypertension with goal blood pressure less than 140/90 Mixed hyperlipidemia Coronary artery disease involving coronary bypass graft of [place] heart without angina pectoris Cardiomyopathy, ischemic Other [...] unspecified cardiovascular conditions Atrial flutter, unspecified type (HCC) [facility] encounter [facility]* Diagnosis Thrush (oral) [facility]* Diagnosis Occlusion and stenosis of unspecified carotid artery [facility]* Diagnosis Esophageal spasm Dyskinesia of esophagus [facility] Diagnosis COVID-19- Primary Chronic obstructive pulmonary disease, unspecified COPD type (HCC) Acute midline low back pain without sciatica Encounter for immunization Need for other specified prophylactic vaccination against single bacterial disease [facility] Diagnosis DDD (degenerative disc disease), lumbar- Primary Degeneration of lumbar or lumbosacral intervertebral disc [facility] Name Dates Details Instructions not documented [facility] Work Phone: Reason for referral (narrative)* Diagnostic Procedure Only (Routine) - Authorized Specialty Diagnoses / Procedures Referred By Dixie swanson Referred To Contact [facility] Diagnoses Breast development in males Procedures GRACE DIAGNOSTIC LT DIAGNOSTIC MAMMOGRAPHY COMPUTER-AIDED DETCJ UNI Maylin Pimentel PA-C [address] [place] [address] [facility] [address] [place] [address] Referral ID Status Reason Start Date Expiration Date Visits Requested Visits Authorized [id number] Authorized Auto-Generat ed Referral 07/26/2022 08/25/2023 1 1 * Diagnostic Procedure Only (Routine) - Authorized Specialty Diagnoses / Procedures Referred By Dixie swanson Referred To Contact [facility] Diagnoses Breast development in males Procedures US BREAST LTD LT US BREAST UNI REAL TIME WITH IMAGE LIMITED Maylin Pimentel PA-C [address] [place] [address] [facility] [address] [place] [address] Referral ID Status Reason Start Date Expiration Date Visits Requested Visits Authorized [id number] Authorized Auto-Generat ed Referral 07/26/2022 08/25/2023 1 1 [facility] for referral (narrative)* Outpatient Procedure (Routine) - Authorized Specialty Diagnoses / Procedures Referred By Contac t Referred To Contact [facility] [place] Diagnoses Peripheral arterial disease (HCC) Procedures PVR ANK PRESS RENEE VAS LAB NON-INVAS PHYSIOLOGIC STD EXTREMITY ART 2 LEVEL Radha Marina, DO [address] [place] [address] [address] Referral ID Status Reason Start Date Expiration Date Visits Requested Visits Authorized [id number] Authorized Auto-Generat ed Referral 09/13/2022 09/13/2023 1 1 * Outpatient Procedure (Routine) - Authorized Specialty Diagnoses / Procedures Referred By Contac t Referred To Contact [facility] Diagnoses Peripheral arterial disease (HCC) Procedures US LEG ARTERIAL PERIPH UNL VAS LAB DUP-SCAN LXTR ART/ARTL BPGS UNI/LMTD STUDY Radha Marina, DO [address] [place] [address] [address] Referral ID Status Reason Start Date Expiration Date Visits Requested Visits Authorized [id number] Authorized Auto-Generat ed Referral 09/13/2022 09/13/2023 1 1 * Outpatient Procedure (Routine) - Authorized Specialty Diagnoses / Procedures Referred By Contac t Referred To Contact [facility] Diagnoses Stenosis of left carotid artery Procedures US CAROTID ARTERIES [facility] DUPLEX SCAN EXTRACRANIAL ART COMPL BI STUDY Radha Marina, DO [address] [place] [address] [facility] [address] [address] Referral ID Status Reason Start Date Expiration Date Visits Requested Visits Authorized [id number] Authorized Auto-Generat ed Referral 09/13/2022 09/13/2023 1 1 [facility] for referral (narrative)* Diagnostic Procedure Only (Routine) - Authorized Specialty Diagnoses / Procedures Referred By Contac t Referred To Contact [facility] IM[facility] Diagnoses Skin mass Procedures US EXTREMITY MASS/FLUID COLLECTION RIGHT Maylin Pimentel PA-C [address] [place] [address] Us Imaging Referral ID Status Reason Start Date Expiration Date Visits Requested Visits Authorized [id number] Authorized Auto-Generat ed Referral 11/03/2022 12/03/2023 1 1 [facility] for referral (narrative)* Outpatient Procedure (Routine) - Authorized Specialty Diagnoses / Procedures Referred By Contac t Referred To [facility] Diagnoses Carotid artery stenosis, asymptomatic, left Procedures US CAROTID ARTERIES [facility] DUPLEX SCAN EXTRACRANIAL ART COMPL BI STUDY Radha Marina DO [address] [place] [address] [facility] [place] [address] [place] [address] Referral ID Status Reason Start Date Expiration Date Visits Requested Visits Authorized [id number] Authorized Auto-Generat ed Referral 12/26/2022 12/26/2023 1 1 [facility] for referral (narrative)* Diagnostic Procedure Only (Urgent) - Closed Specialty Diagnoses / Procedures Referred By Contac t Referred To Contact XR IMAGING Diagnoses Right wrist pain Procedures XR WRIST INJURY 4V PA/LAT/OBL/SCAPH RIGHT RADEX WRIST COMPLETE MINIMUM 3 VIEWS Everett Cardenas APRN.SENIOR QUANTITY SURVEYOR [address] [place] [address] Xr Imaging Referral ID Status Reason Start Date Expiration Date V isits Requested Visits Authorized [id number] Closed Auto-Generate d Referral 02/14/2023 03/15/2024 1 1 * Diagnostic Procedure Only (Urgent) - Closed Specialty Diagnoses / Procedures Referred By Contac t Referred To Contact XR IMAGING Diagnoses Pain of right hand Procedures XR HAND GENERAL 3V PA/LAT/OBL RIGHT RADEX HAND MINIMUM 3 VIEWS Everett Cardenas APRN.CNP [address] [place] [address] Xr Imaging Referral ID Status Reason Start Date Expiration Date V isits Requested Visits Authorized [id number] Closed Auto-Generate d Referral 02/14/2023 03/15/2024 1 1 [facility] for referral (narrative)* Diagnostic Procedure Only (Urgent) - Authorized Specialty Diagnoses / Procedures Referred By Contac t Referred To Contact [facility] Diagnoses Coronary artery disease involving coronary bypass graft of [place] heart without angina pectoris Cardiomyopathy, ischemic Angina pectoris (HCC) Encounter for screening for cardiovascular disorders Procedures NM CARDIAC PERF STRESS/PHARM MYOCARDIAL SPECT MULTIPLE STUDIES Fito Chavez MD [address] [place] [address] [facility] [address] [place] [address] Referral ID Status Reason Start Date Expiration Date Visits Requested Visits Authorized [id number] Authorized Auto-Generat ed Referral 03/30/2023 04/28/2024 1 1 * Outpatient Procedure (Routine) - Closed Specialty Diagnoses / Procedures Referred By Contac t Referred To Contact [facility] Diagnoses Coronary artery disease involving coronary bypass graft of [place] heart without angina pectoris Cardiomyopathy, ischemic Angina pectoris (HCC) Procedures ECG COMPLETE ECG ROUTINE ECG W/LEAST 12 LDS W/I&R Fito Chavez MD [address] [place] [address] [facility] [place] [address] [place] [address] Referral ID Status Reason Start Date Expiration Date V isits Requested Visits Authorized [id number] Closed Auto-Generate d Referral 03/30/2023 03/29/2024 1 1 [facility] Diagnostic Procedure Only (Routine) - Closed Specialty Diagnoses / Procedures Referred By Contac t Referred To Contact XR IMAGING Diagnoses Acute midline low back pain without sciatica Procedures XR LUMBAR MOTION 4V AP/LAT/ FLEX/EXT RADEX SPINE LUMBOSACRAL MINIMUM 4 VIEWS Azul Pardo APRN.CNP [address] [place] [address] [place] [id number] Referral ID Status Reason Start Date Expiration Date V isits Requested Visits Authorized [id number] Closed Auto-Generate d Referral 06/04/2023 07/03/2024 1 1 [facility] Summary Purpose Family History No Family History [...] FoundDocuments on File Type Date Recorded Patient Pole Shaver Expl anation Advance Directive(s) Hospital Course Note [...] HEAD/BRAIN W/O CONTRAST MATERIAL Maylin Pimentel PA-C [address] [place] [address] Ct Imaging Referral ID Status Reason Start Date Expiration Date V isits Requested Visits Authorized [id number] Closed Auto-Generate d Referral 02/24/2022 03/26/2023 1 1 Specialty Diagnoses / Procedures Referred By Dixie swanson Referred To Contact CT IMAGING Diagnoses Occlusion and stenosis of unspecified carotid artery Procedures CTA NECK W IVCON CT ANGIOGRAPHY NECK W/CONTRAST/NONCONTRAST Radha Marina DO [address] [place] [address] Ct Imaging Referral ID Status Reason Start Date Expiration Date V isits Requested Visits Authorized [id number] Closed Auto-Generate d Referral 10/10/2022 11/09/2023 1 1 Specialty Diagnoses / Procedures Referred By Contac t Referred To Contact CT IMAGING Diagnoses Occlusion and stenosis of unspecified carotid artery Procedures CTA HEAD W IVCON CT ANGIOGRAPHY HEAD W/CONTRAST/NONCONTRAST Radha Marina, DO [address] [place] [address] Ct Imaging Referral ID Status Reason Start Date Expiration Date V isits Requested Visits Authorized [id number] Closed Auto-Generate d Referral 10/10/2022 11/09/2023 1 1 Specialty Diagnoses / Procedures Referred By Contac t Referred To Contact General Surgery Diagnoses Soft tissue mass Abscess Procedures CONSULT TO GENERAL SURGERY OFFICE/OUTPATIENT [facility] 60-74 MINUTES Maylin Pimentel PA-C [address] [place] [address] Referral ID Status Reason Start Date Expiration Date Visits Requested Visits Authorized [id number] Authorized PCP Requested Referral 11/08/2022 11/08/2023 1 1 Specialty Diagnoses / Procedures Referred By Contac t Referred To Contact Orthopedics Diagnoses Right wrist pain Procedures CONSULT TO ORTHOPAEDICS OFFICE/OUTPATIENT [facility] 60-74 MINUTES Maylin Pimentel PA-C [address] [place] [address] Referral ID Status Reason Start Date Expiration Date Visits Requested Visits Authorized [id number] Authorized PCP Requested Referral 01/11/2023 01/11/2024 1 1 Specialty Diagnoses / Procedures Referred By Contac t Referred To Contact XR IMAGING Diagnoses Right wrist pain Procedures XR WRIST GENERAL 3V PA/LAT/OBL RIGHT RADEX WRIST COMPLETE MINIMUM 3 VIEWS Maylin Pimentel PA-C [address] [place] [address] Xr Imaging Referral ID Status Reason Start Date Expiration Date V isits Requested Visits Authorized [id number] Closed Auto-Generate d Referral 01/11/2023 02/10/2024 1 1 Specialty Diagnoses / Procedures Referred By Contac t Referred To Contact CT IMAGING Diagnoses Chronic cough Procedures CT CHEST WO IVCON DIAGNOSTIC COMPUTED TOMOGRAPHY THORAX W/O CNTRST Maylin Pimentel PA-C [address] [place] [address] Ct Imaging [place] [address] Referral ID Status Reason Start Date Expiration Date Visits Requested Visits Authorized [id number] Authorized Auto-Generat ed Referral 03/19/2023 04/17/2024 1 1 Specialty Diagnoses / Procedures Referred By Contac t Referred To Contact CT IMAGING Diagnoses Occlusion and stenosis of unspecified carotid artery Procedures CTA NECK W IVCON CT ANGIOGRAPHY NECK W/CONTRAST/NONCONTRAST Radha Marina, DO [address] [place] [address] Ct Imaging [place] [address] Specialty Diagnoses / Procedures Referred By Contac t Referred To Contact CT IMAGING Diagnoses Occlusion and stenosis of unspecified carotid artery Procedures CTA HEAD W IVCON CT ANGIOGRAPHY HEAD W/CONTRAST/NONCONTRAST Radha Marina, DO [address] [place] [address] Ct Imaging [place] [address] Specialty Diagnoses / Procedures Referred By Contac t Referred To Contact [facility] [place] Diagnoses DDD (degenerative disc disease), lumbar Procedures CONSULT TO [facility] OFFICE/OUTPATIENT [facility] 60-74 MINUTES Azul Pardo APRN.SENIOR QUANTITY SURVEYOR [address] [place] [address] Referral ID Status Reason Start Date Expiration Date Visits Requested Visits Authorized [id number] Authorized PCP Requested Referral 3 06/06/2024 1 1 Additional Source Comments (unrecognized sect ion and content) No Status Records FoundNo Status Records FoundNo Status Records FoundNo Status Records FoundNo Status Records FoundNo Status Records FoundNo Status Records FoundNo Status Records FoundNo Status Records Found INFORMATION SOURCE (unrecogn ized section and content) DATE CREATED AUTHOR AUTHOR'S ORGANIZ ATION 07/30/2020 [facility] DATE CREATED AUTHOR AUTHOR'S ORGANIZ ATION 12/15/2020 [facility] DATE CREATED AUTHOR AUTHOR'S ORGANIZ ATION 12/23/2020 [facility] DATE CREATED AUTHOR AUTHOR'S ORGANIZ ATION 11/09/2022 [facility] DATE CREATED AUTHOR AUTHOR'S ORGANIZ ATION 03/07/2023 [facility] DATE CREATED AUTHOR AUTHOR'S ORGANIZ ATION 04/10/2023 [facility] DATE CREATED AUTHOR AUTHOR'S ORGANIZ ATION 04/25/2023 [facility] DATE CREATED AUTHOR AUTHOR'S ORGANIZ ATION 07/30/2023 [facility] Source Comments (unrecognize d section and content) In the event this informatio n is protected by the Federal Confidentiality of Alcohol and Drug Abuse Patient Records regulations: The Federal rules restrict any use of the information to criminally investigate or prosecute any alcohol or drug abuse patient.[facility] the event this information is protected by the Federal Confidentiality of Alcohol and Drug Abuse Patient Records regulations: The Federal rules restrict any use of the information to criminally investigate or prosecute any alcohol or drug abuse patient.[facility] System[facility] the event this information is protected by the Federal Confidentiality of Alcohol and Drug Abuse Patient Records regulations: The Federal rules restrict any use of the information to criminally investigate or prosecute any alcohol or drug abuse patient.[facility] System[facility] the event this information is protected by the Federal Confidentiality of Alcohol and Drug Abuse Patient Records regulations: The Federal rules restrict any use of the information to criminally investigate or prosecute any alcohol or drug abuse patient.[facility] System[facility] the event this information is protected by the Federal Confidentiality of Alcohol and Drug Abuse Patient Records regulations: The Federal rules restrict any use of the information to criminally investigate or prosecute any alcohol or drug abuse patient.[facility] SystemIn the event this information is protected by the Federal Confidentiality of Alcohol and Drug Abuse Patient Records regulations: The Federal rules restrict any use of the information to criminally investigate or prosecute any alcohol or drug abuse patient.[facility] System[facility] the event this information is protected by the Federal Confidentiality of Alcohol and Drug Abuse Patient Records regulations: The Federal rules restrict any use of the information to criminally investigate or prosecute any alcohol or drug abuse patient.[facility] System[facility] the event this information is protected by the Federal Confidentiality of Alcohol and Drug Abuse Patient Records regulations: The Federal rules restrict any use of the information to criminally investigate or prosecute any alcohol or drug abuse patient.[facility] System[facility] the event this information is protected by the Federal Confidentiality of Alcohol and Drug Abuse Patient Records regulations: The Federal rules restrict any use of the information to criminally investigate or prosecute any alcohol or drug abuse patient.[facility] System[facility] the event this information is protected by the Federal Confidentiality of Alcohol and Drug Abuse Patient Records regulations: The Federal rules restrict any use of the information to criminally investigate or prosecute any alcohol or drug abuse patient.[facility] SystemIn the event this information is protected by the Federal Confidentiality of Alcohol and Drug Abuse Patient Records regulations: The Federal rules restrict any use of the information to criminally investigate or prosecute any alcohol or drug abuse patient.[facility] SystemIn the event this information is protected by the Federal Confidentiality of Alcohol and Drug Abuse Patient Records regulations: The Federal rules restrict any use of the information to criminally investigate or prosecute any alcohol or drug abuse patient.[facility] System[facility] the event this information is protected by the Federal Confidentiality of Alcohol and Drug Abuse Patient Records regulations: The Federal rules restrict any use of the information to criminally investigate or prosecute any alcohol or drug abuse patient.[facility] SystemIn the event this information is protected by the Federal Confidentiality of Alcohol and Drug Abuse Patient Records regulations: The Federal rules restrict any use of the information to criminally investigate or prosecute any alcohol or drug abuse patient.[facility] SystemIn the event this information is protected by the Federal Confidentiality of Alcohol and Drug Abuse Patient Records regulations: The Federal rules restrict any use of the information to criminally investigate or prosecute any alcohol or drug abuse patient.[facility] SystemIn the event this information is protected by the Federal Confidentiality of Alcohol and Drug Abuse Patient Records regulations: The Federal rules restrict any use of the information to criminally investigate or prosecute any alcohol or drug abuse patient.[facility] SystemIn the event this information is protected by the Federal Confidentiality of Alcohol and Drug Abuse Patient Records regulations: The Federal rules restrict any use of the information to criminally investigate or prosecute any alcohol or drug abuse patient.[facility] SystemIn the event this information is protected by the Federal Confidentiality of Alcohol and Drug Abuse Patient Records regulations: The Federal rules restrict any use of the information to criminally investigate or prosecute any alcohol or drug abuse patient.[facility] SystemIn the event this information is protected by the Federal Confidentiality of Alcohol and Drug Abuse Patient Records regulations: The Federal rules restrict any use of the information to criminally investigate or prosecute any alcohol or drug abuse patient.[facility] SystemIn the event this information is protected by the Federal Confidentiality of Alcohol and Drug Abuse Patient Records regulations: The Federal rules restrict any use of the information to criminally investigate or prosecute any alcohol or drug abuse patient.[facility] SystemIn the event this information is protected by the Federal Confidentiality of Alcohol and Drug Abuse Patient Records regulations: The Federal rules restrict any use of the information to criminally investigate or prosecute any alcohol or drug abuse patient.[facility] SystemIn the event this information is protected by the Federal Confidentiality of Alcohol and Drug Abuse Patient Records regulations: The Federal rules restrict any use of the information to criminally investigate or prosecute any alcohol or drug abuse patient.[facility] SystemIn the event this information is protected by the Federal Confidentiality of Alcohol and Drug Abuse Patient Records regulations: The Federal rules restrict any use of the information to criminally investigate or prosecute any alcohol or drug abuse patient.[facility] SystemIn the event this information is protected by the Federal Confidentiality of Alcohol and Drug Abuse Patient Records regulations: The Federal rules restrict any use of the information to criminally investigate or prosecute any alcohol or drug abuse patient.[facility] SystemIn the event this information is protected by the Federal Confidentiality of Alcohol and Drug Abuse Patient Records regulations: The Federal rules restrict any use of the information to criminally investigate or prosecute any alcohol or drug abuse patient.[facility] SystemIn the event this information is protected by the Federal Confidentiality of Alcohol and Drug Abuse Patient Records regulations: The Federal rules restrict any use of the information to criminally investigate or prosecute any alcohol or drug abuse patient.[facility] SystemIn the event this information is protected by the Federal Confidentiality of Alcohol and Drug Abuse Patient Records regulations: The Federal rules restrict any use of the information to criminally investigate or prosecute any alcohol or drug abuse patient.[facility] SystemIn the event this information is protected by the Federal Confidentiality of Alcohol and Drug Abuse Patient Records regulations: The Federal rules restrict any use of the information to criminally investigate or prosecute any alcohol or drug abuse patient.[facility] SystemIn the event this information is protected by the Federal Confidentiality of Alcohol and Drug Abuse Patient Records regulations: The Federal rules restrict any use of the information to criminally investigate or prosecute any alcohol or drug abuse patient.[facility] SystemIn the event this information is protected by the Federal Confidentiality of Alcohol and Drug Abuse Patient Records regulations: The Federal rules restrict any use of the information to criminally investigate or prosecute any alcohol or drug abuse patient.[facility] SystemIn the event this information is protected by the Federal Confidentiality of Alcohol and Drug Abuse Patient Records regulations: The Federal rules restrict any use of the information to criminally investigate or prosecute any alcohol or drug abuse patient.[facility] SystemIn the event this information is protected by the Federal Confidentiality of Alcohol and Drug Abuse Patient Records regulations: The Federal rules restrict any use of the information to criminally investigate or prosecute any alcohol or drug abuse patient.[facility] SystemIn the event this information is protected by the Federal Confidentiality of Alcohol and Drug Abuse Patient Records regulations: The Federal rules restrict any use of the information to criminally investigate or prosecute any alcohol or drug abuse patient.[facility] SystemIn the event this information is protected by the Federal Confidentiality of Alcohol and Drug Abuse Patient Records regulations: The Federal rules restrict any use of the information to criminally investigate or prosecute any alcohol or drug abuse patient.[facility] SystemIn the event this information is protected by the Federal Confidentiality of Alcohol and Drug Abuse Patient Records regulations: The Federal rules restrict any use of the information to criminally investigate or prosecute any alcohol or drug abuse patient.[facility] SystemIn the event this information is protected by the Federal Confidentiality of Alcohol and Drug Abuse Patient Records regulations: The Federal rules restrict any use of the information to criminally investigate or prosecute any alcohol or drug abuse patient.[facility] SystemIn the event this information is protected by the Federal Confidentiality of Alcohol and Drug Abuse Patient Records regulations: The Federal rules restrict any use of the information to criminally investigate or prosecute any alcohol or drug abuse patient.[facility] SystemIn the event this information is protected by the Federal Confidentiality of Alcohol and Drug Abuse Patient Records regulations: The Federal rules restrict any use of the information to criminally investigate or prosecute any alcohol or drug abuse patient.[facility] SystemIn the event this information is protected by the Federal Confidentiality of Alcohol and Drug Abuse Patient Records regulations: The Federal rules restrict any use of the information to criminally investigate or prosecute any alcohol or drug abuse patient.[facility] SystemIn the event this information is protected by the Federal Confidentiality of Alcohol and Drug Abuse Patient Records regulations: The Federal rules restrict any use of the information to criminally investigate or prosecute any alcohol or drug abuse patient.[facility] SystemIn the event this information is protected by the Federal Confidentiality of Alcohol and Drug Abuse Patient Records regulations: The Federal rules restrict any use of the information to criminally investigate or prosecute any alcohol or drug abuse patient.[facility] SystemIn the event this information is protected by the Federal Confidentiality of Alcohol and Drug Abuse Patient Records regulations: The Federal rules restrict any use of the information to criminally investigate or prosecute any alcohol or drug abuse patient.[facility] SystemIn the event this information is protected by the Federal Confidentiality of Alcohol and Drug Abuse Patient Records regulations: The Federal rules restrict any use of the information to criminally investigate or prosecute any alcohol or drug abuse patient.[facility] SystemIn the event this information is protected by the Federal Confidentiality of Alcohol and Drug Abuse Patient Records regulations: The Federal rules restrict any use of the information to criminally investigate or prosecute any alcohol or drug abuse patient.[facility] SystemIn the event this information is protected by the Federal Confidentiality of Alcohol and Drug Abuse Patient Records regulations: The Federal rules restrict any use of the information to criminally investigate or prosecute any alcohol or drug abuse patient.[facility] SystemIn the event this information is protected by the Federal Confidentiality of Alcohol and Drug Abuse Patient Records regulations: The Federal rules restrict any use of the information to criminally investigate or prosecute any alcohol or drug abuse patient.[facility] SystemIn the event this information is protected by the Federal Confidentiality of Alcohol and Drug Abuse Patient Records regulations: The Federal rules restrict any use of the information to criminally investigate or prosecute any alcohol or drug abuse patient.[facility] SystemIn the event this information is protected by the Federal Confidentiality of Alcohol and Drug Abuse Patient Records regulations: The Federal rules restrict any use of the information to criminally investigate or prosecute any alcohol or drug abuse patient.[facility] SystemIn the event this information is protected by the Federal Confidentiality of Alcohol and Drug Abuse Patient Records regulations: The Federal rules restrict any use of the information to criminally investigate or prosecute any alcohol or drug abuse patient.[facility] SystemIn the event this information is protected by the Federal Confidentiality of Alcohol and Drug Abuse Patient Records regulations: The Federal rules restrict any use of the information to criminally investigate or prosecute any alcohol or drug abuse patient.[facility] SystemIn the event this information is protected by the Federal Confidentiality of Alcohol and Drug Abuse Patient Records regulations: The Federal rules restrict any use of the information to criminally investigate or prosecute any alcohol or drug abuse patient.[facility] SystemIn the event this information is protected by the Federal Confidentiality of Alcohol and Drug Abuse Patient Records regulations: The Federal rules restrict any use of the information to criminally investigate or prosecute any alcohol or drug abuse patient.[facility] SystemIn the event this information is protected by the Federal Confidentiality of Alcohol and Drug Abuse Patient Records regulations: The Federal rules restrict any use of the information to criminally investigate or prosecute any alcohol or drug abuse patient.[facility] SystemIn the event this information is protected by the Federal Confidentiality of Alcohol and Drug Abuse Patient Records regulations: The Federal rules restrict any use of the information to criminally investigate or prosecute any alcohol or drug abuse patient.[facility] SystemIn the event this information is protected by the Federal Confidentiality of Alcohol and Drug Abuse Patient Records regulations: The Federal rules restrict any use of the information to criminally investigate or prosecute any alcohol or drug abuse patient.[facility] SystemIn the event this information is protected by the Federal Confidentiality of Alcohol and Drug Abuse Patient Records regulations: The Federal rules restrict any use of the information to criminally investigate or prosecute any alcohol or drug abuse patient.[facility] SystemIn the event this information is protected by the Federal Confidentiality of Alcohol and Drug Abuse Patient Records regulations: The Federal rules restrict any use of the information to criminally investigate or prosecute any alcohol or drug abuse patient.[facility] SystemIn the event this information is protected by the Federal Confidentiality of Alcohol and Drug Abuse Patient Records regulations: The Federal rules restrict any use of the information to criminally investigate or prosecute any alcohol or drug abuse patient.[facility] Reason for Visit (unrecogniz ed section and [...] CT Specialty Diagnoses / Procedures Referred By Contceleste t Referred To Contact CT IMAGING Diagnoses Dizziness Fall, initial encounter Procedures CT BRAIN WO IVCON CT HEAD/BRAIN W/O CONTRAST MATERIAL Maylin Pimentel PA-C [address] [place] [address] Ct Imaging Referral ID Status Reason Start Date Expiration Date V isits Requested Visits Authorized [id number] Closed Auto-Generate d Referral 02/24/2022 03/26/2023 1 1 Reason Comments blood pressure readings Reason Onset Date Comments Community Monitoring Outreach 03/28/2022 CD M Telephonic Reason Onset Date Comments community monitoring outreach 05/25/2022 CD M telephonic outreach Reason Onset Date Comments community monitoring outreach 06/27/2022 CD M-Telephonic outreach Reason Comments ER F/U [facility] 07/19/22 Reason Comments Results Reason Onset Date Comments community monitoring outreach 07/28/2022 CD M-Telephonic outreach Reason Comments Consult Consult Pulmonary Reason Onset Date Comments community monitoring outreach 08/31/2022 CD M-Telephonic outreach Reason Onset Date Comments Refill Request 09/19/2022 Reason Comments Medicare Wellness Exam Reason Onset Date Comments community monitoring outreach 10/03/2022 CD M-Telephonic outreach Reason Comments Follow Up Hard lump on right c binh, warm to the touch X 1 week [...] MDM 60-74 MINUTES Maylin Pimentel PA-C [address] [place] [address] Referral ID Status Reason Start Date Expiration Date V isits Requested Visits Authorized [id number] Closed PCP Requested Referral 11/08/2022 11/08/2023 1 [...] NECK W/CONTRAST/NONCONTRAST Radha Marina, DO [address] [place] [address] [place] [id number] Referral ID Status Reason Start Date Expiration Date V isits Requested Visits Authorized [id number] Closed Auto-Generate d Referral 10/10/2022 11/09/2023 1 1 Reason Onset Date Comments Refill Request 05/26/2023 Reason Comments Hospital F/U Reason Onset Date Comments community monitoring outreach 06/22/2023 CD M-Telephonic outreach Care Teams (unrecognized sec tion and content) Business Services Officer Relationship Specialty Start Date End Date Fito Chavez MD [address] [place] [address] PCP - General Family Practice 09/11/13 Giselle Cortez, helicopter specialistBarley Steeper 03/10/21 Mio Garcia [address] [place] [phone] Special Service Officer Cardiology 07/20/21 Kiko Slaughter [address] [place] [address] Staff Design Engineer Internal Medicine 09/16/21 Business Services Officer Relationship Specialty Start Date End Date Fito Chavez MD [address] [place] [address] PCP - General Family Practice 09/11/13 Giselle Cortez RN Barley Steeper 03/10/21 Mio Garcia [address] [place] [phone] Special Service Officer Cardiology 07/20/21 Kiko Slaughter [address] [place] [address] Staff Design Engineer Internal Medicine 09/16/21 Business Services Officer Relationship Specialty Start Date End Date Fito Chavez MD [address] [place] [address] PCP - General Family Practice 09/11/13 Giselle Cortez, RN [address] [place] [address] Barley Steeper 03/10/21 Mio Garcia [address] [place] [address] Special Service Officer Cardiology 07/20/21 Kiko Slaughter [address] [place] [address] Staff Design Engineer Internal Medicine 09/16/21 Business Services Officer Relationship Specialty Start Date End Date Fito Chavez MD [address] [facility] [place] [address] PCP - General Family Practice 09/11/13 Giselle Cortez, RN [address] [place], [place] [phone] Barley Steeper 03/10/21 Mio Garcia [address] [place] [address] Special Service Officer Cardiology 07/20/[address] Kiko Slaughter [address] [place] [address] Staff Design Engineer Internal Medicine 09/16/21 Business Services Officer Relationship Specialty Start Date End Date Fito Chavez MD [address] [facility] [place] [address] PCP - General Family Practice 09/11/13 Giselle Cortez RN [address] [place], [place] [phone] Barley Steeper 03/10/21 Mio Garcia [address] [place] [address] Special Service Officer Cardiology 07/20/[address] Kiko Slaughter [address] [place] [address] Staff Design Engineer Internal Medicine 09/16/21 Business Services Officer Relationship Specialty Start Date End Date Fito Chavez MD [address] [facility] [place] [address] PCP - General Family Practice 09/11/13 Giselle Cortez, SALVADOR [address] [place] [address] Barley Steeper 03/10/21 Mio Garcia [address] [place] [address] Special Service Officer Cardiology 07/20/[address] [place] [address] Staff Design Engineer Internal Medicine 09/16/21 Business Services Officer Relationship Specialty Start Date End Date Fito Chavez MD [address] [facility] [place] [address] PCP - General Family Practice 09/11/13 Giselle Cortez RN [address] [place] [address] Barley Steeper 03/10/21 Mio Garcia [address] [place] [address] Special Service Officer Cardiology 07/20/[address] [place] [address] Staff Design Engineer Internal Medicine 09/16/21 Business Services Officer Relationship Specialty Start Date End Date Fito Chavez MD [address] [place] [address] PCP - General Family Practice 09/11/13 Giselle Cortez RN [address] [place] [address] Barley Steeper 03/10/21 Mio Garcia [address] [place] [address] Special Service Officer Cardiology 07/20/[address]iko Slaughter [address] [place] [address] Staff Design Engineer Internal Medicine 09/16/21 Business Services Officer Relationship Specialty Start Date End Date Fito Chavez MD [address] [facility] [place] [address] PCP - General Family Practice 09/11/13 Giselle Cortez, SALVADOR [address] [place], [place] [phone] Barley Steeper 03/10/21 Mio Garcia [address] [place] [address] Special Service Officer Cardiology 07/20/[address]iko [address] [place] [address] Staff Design Engineer Internal Medicine 09/16/21 Business Services Officer Relationship Specialty Start Date End Date Fito Chavez MD [address] [facility] [address] PCP - General Family Medicine 09/11/13 Giselle Cortez RN [address] [place], [place] [phone] Barley Steeper 03/10/21 Mio Garcia [address] [place] [address] Special Service Officer Cardiology 07/20/[address]iko [address] [place] [address] Staff Design Engineer Internal Medicine 09/16/21 Business Services Officer Relationship Specialty Start Date End Date Fito Chavez MD [address] [facility] [address] PCP - General Family Medicine 09/11/13 Mio Garcia [address] [place] [address] Special Service Officer Cardiology 07/20/[address]iko Slaughter [address] [place] [address] Staff Design Engineer Internal Medicine 09/16/21 Lopez Brown, SALVADOR [address] [place], [place] [phone] Barley Steeper Family Medicine 03/10/21 Business Services Officer Relationship Specialty Start Date End Date Fito Chavez MD [address] [facility] [address] PCP - General Family Medicine 09/11/13 Mio Garcia [address] [place] [address] Special Service Officer Cardiology 07/20/[address]iko [address] [place] [address] Staff Design Engineer Internal Medicine 09/16/21 Lopez Brown, SALVADOR [address] [place] [address] Barley Steeper Family Medicine 05/10/22 Business Services Officer Relationship Specialty Start Date End Date Fito Chavez MD [address] [facility] [address] PCP - General Family Medicine 09/11/13 Mio Garcia [address] [place] [address] Special Service Officer Cardiology 07/20/21 Kiko Slaughter [address] [place] [address] Staff Design Engineer Internal Medicine 09/16/21 Lopez Brown RN [address] [place], [place] [phone] Barley Steeper Family Medicine 05/10/22 Business Services Officer Relationship Specialty Start Date End Date Fito Chavez MD [address] [facility] [address] PCP - General Family Medicine 09/11/13 Mio Garcia [address] [place] [address], [place] [address] Special Service Officer Cardiology 07/20/21 Kiko [place] [address] Staff Design Engineer Internal Medicine 09/16/21 Lopez Brown RN [address] [place], [place] [phone] Barley Steeper Family Medicine 05/10/22 Business Services Officer Relationship Specialty Start Date End Date Fito Chavez MD [address] [facility] [address] PCP - General Family Medicine 09/11/13 Mio Garcia [address] [place] [address] Special Service Officer Cardiology 07/20/21 Kiko Slaughter [address] [address] Staff Design Engineer Internal Medicine 09/16/21 Lopez Brown RN [address] [place], [place] [phone] Barley Steeper Family Medicine 05/10/22 Business Services Officer Relationship Specialty Start Date End Date Fito Chavez MD [address] [facility] [address] PCP - General Family Medicine 09/11/13 Mio Garcia [address] [place] [address] Special Service Officer Cardiology 07/20/21 Kiko Slaughter [address] [place] [address] Staff Design Engineer Internal Medicine 09/16/21 Lopez Brown RN [address] [place], [place] [phone] Barley Steeper Family Medicine 05/10/22 Business Services Officer Relationship Specialty Start Date End Date Fito Chavez MD [address] [facility] [address] PCP - General Family Medicine 09/11/13 Mio Garcia [address] [place] [address] Special Service Officer Cardiology 07/20/[address]iko Slaughter [address] [place] [address] Staff Design Engineer Internal Medicine 09/16/21 Lopez Brown RN [address] [place], [place] [phone] Barley Steeper Family Medicine 05/10/22 Business Services Officer Relationship Specialty Start Date End Date Fito Chavez MD [address] [facility] [address] PCP - General Family Medicine 09/11/13 Mio Garcia [address] [place] [address] Special Service Officer Cardiology 07/20/21 Kiko Slaughter [address] [place] [address] Staff Design Engineer Internal Medicine 09/16/21 Lopez Brown RN [address] [place] [address] Barley Steeper Family Medicine 05/10/22 Business Services Officer Relationship Specialty Start Date End Date Fito Chavez MD [address] [facility] [address] PCP - General Family Medicine 09/11/13 Mio Garcia [address] [place] [address] Special Service Officer Cardiology 07/20/21 Kiko Slaughter [address] [place] [address] Staff Design Engineer Internal Medicine 09/16/21 Lopez Brown RN [address] [place] [address] Barley Steeper Family Medicine 05/10/22 Business Services Officer Relationship Specialty Start Date End Date Fito Chavez MD [address] [place] [address] PCP - General Family Medicine 09/11/13 Mio Garcia [address] [place] [address] Special Service Officer Cardiology 07/20/21 Kiko Slaughter [address] [place] [address] Staff Design Engineer Internal Medicine 09/16/21 Lopez Brown RN [address] [place], [place] [phone] Barley Steeper Family Medicine 05/10/22 Business Services Officer Relationship Specialty Start Date End Date Fito Chavez MD [address] [facility] [address] PCP - General Family Medicine 09/11/13 Mio Garcia [address] [place] [address] Special Service Officer Cardiology 07/20/21 Kiko Slaughter [address] [place] [address] Staff Design Engineer Internal Medicine 09/16/21 Lopez Brown, SALVADOR [address] [place], [place] [id number] Barley Steeper Family Medicine 05/10/22 Business Services Officer Relationship Specialty Start Date End Date Fito Chavez MD [address] [facility] [place] [address] PCP - General Family Medicine 09/11/13 Mio Garcia [address] [place] [address] Special Service Officer Cardiology 07/20/21 Kiko Slaughter [address] [place] [address] Staff Design Engineer Internal Medicine 09/16/21 Lopez Brown RN [address] [place] [address] Barley Steeper Family Medicine 05/10/22 Business Services Officer Relationship Specialty Start Date End Date Fito Chavez MD [address] [facility] [place] [address] PCP - General Family Medicine 09/11/13 Mio Garcia [address] [place] [address] Special Service Officer Cardiology 07/20/21 Kiko Slaughter [address] [place] [address] Staff Design Engineer Internal Medicine 09/16/21 Lopez Brown, SALVADOR [address] [place], [place] [phone] Barley Steeper Family Medicine 05/10/22 Business Services Officer Relationship Specialty Start Date End Date Fito Chavez MD [address] [facility] [place] [address] PCP - General Family Medicine 09/11/13 Mio Garcia [address] [place] [address] Special Service Officer Cardiology 07/20/21 Kiko Slaughter [address] [place] [address] Staff Design Engineer Internal Medicine 09/16/21 Lopez Brown RN [address] [place], [place] [phone] Barley Steeper Family Medicine 05/10/22 Business Services Officer Relationship Specialty Start Date End Date Fito Chavez MD [address] [facility] [place] [address] PCP - General Family Medicine 09/11/13 Mio Garcia [address] [place] [address] Special Service Officer Cardiology 07/20/21 Kiko Slaughter [address] [place] [address] Staff Design Engineer Internal Medicine 09/16/21 Lopez Brown RN [address] [place], [place] [phone] Barley Steeper Family Medicine 05/10/22 Business Services Officer Relationship Specialty Start Date End Date Fito Chavez MD [address] [facility] [address] PCP - General Family Medicine 09/11/13 Mio Garcia [address] [place] [address] Special Service Officer Cardiology 07/20/21 Kiko Slaughter [address] [place] [address] Staff Design Engineer Internal Medicine 09/16/21 Lopez Brown RN [address] [place], [place] [phone] Barley Steeper Family Medicine 05/10/22 Business Services Officer Relationship Specialty Start Date End Date Fito Chavez MD [address] [facility] [address] PCP - General Family Medicine 09/11/13 Mio Garcia [address] [place] [address] Special Service Officer Cardiology 07/20/21 Kiko Slaughter [address] [place] [address] Staff Design Engineer Internal Medicine 09/16/21 Lopez Brown RN [address] [place], [place] [phone] Barley Steeper Family Medicine 05/10/22 Business Services Officer Relationship Specialty Start Date End Date Fito Chavez MD [address] [facility] [address] PCP - General Family Medicine 09/11/13 Mio Garcia [address] [place] [address] Special Service Officer Cardiology 07/20/21 Kiko Slaughter [address] [place] [address] Staff Design Engineer Internal Medicine 09/16/21 Lopez Brown, RN [address] [place], [place] [phone] Barley Steeper Family Medicine 05/10/22 Business Services Officer Relationship Specialty Start Date End Date Fito Chavez MD [address] [facility] [address] PCP - General Family Medicine 09/11/13 Mio Garcia [address] [place] [phone] Special Service Officer Cardiology 07/20/21 Kiko Slaughter [address] [place] [address] Staff Design Engineer Internal Medicine 09/16/21 Lopez Brown RN [address] [place] [address] Barley Steeper Family Medicine 05/10/22 Business Services Officer Relationship Specialty Start Date End Date Fito Chavez MD [address] [place] [address] PCP - General Family Medicine 09/11/13 Mio Garcia [address] [place] [address] Special Service Officer Cardiology 07/20/21 Kiko Slaughter [address] [place] [address] Staff Design Engineer Internal Medicine 09/16/21 Lopez Brown RN [address] [place], [place] [phone] Barley Steeper Family [facility] 05/10/22 Business Services Officer Relationship Specialty Start Date End Date Fito Chavez MD [address] [place] [address] PCP - General Family Medicine 09/11/13 Mio Garcia [address] [place] [address] Special Service Officer Cardiology 07/20/21 Kiko Slaughter [address] [place] [address] Staff Design Engineer Internal Medicine 09/16/21 Lopez Brown RN [address] [place], [place] [phone] Barley Steeper Family [facility] 05/10/22 Business Services Officer Relationship Specialty Start Date End Date Fito Chavez MD [address] [place] [address] PCP - General Family Medicine 09/11/13 Mio Garcia [address] [place] [address] Special Service Officer Cardiology 07/20/21 Kiko Slaughter [address] [place] [address] Staff Design Engineer Internal Medicine 09/16/21 Lopez Brown RN [address] [place] [address] Barley Steeper Family Medicine 05/10/22 Business Services Officer Relationship Specialty Start Date End Date Fito Chavez MD [address] [place] [address] PCP - General Family Medicine 09/11/13 Mio Garcia [address] [place] [address], [place] [address] Special Service Officer Cardiology 07/20/21 Kiko Slaughter [address] [place] [address] Staff Design Engineer Internal Medicine 09/16/21 Lopez Brown, SALVADOR [address] [place], [place] [phone] Barley Steeper Family Medicine 05/10/22 Business Services Officer Relationship Specialty Start Date End Date Fito Chavez MD [address] [place] [address] PCP - General Family Medicine 09/11/13 Mio Garcia [address] [address] Special Service Officer Cardiology 07/20/21 Kiko Slaughter [address] [place] [address] Staff Design Engineer Internal Medicine 09/16/21 Lopez Brown RN [address] [place] [address] Barley Steeper Family Medicine 05/10/22 Business Services Officer Relationship Specialty Start Date End Date Fito Chavez MD [address] [place] [address] PCP - General Family Medicine 09/11/13 Mio Garcia [address] [place] [address] Special Service Officer Cardiology 07/20/21 Kiko Slaughter [address] [place] [address] Staff Design Engineer Internal Medicine 09/16/21 Lopez Brown, RN [address] [place], [place] [phone] Barley Steeper Family Medicine 05/10/22 Business Services Officer Relationship Specialty Start Date End Date Fito Chavez MD [address] [place] [address] PCP - General Family Medicine 09/11/13 Mio Garcia [address] [place] [address] Special Service Officer Cardiology 07/20/21 Kiko Slaughter [address] [place] [address] Staff Design Engineer Internal Medicine 09/16/21 Lopez Brown, SALVADOR [address] [place], [place] [address]46[address] Barley Steeper Family Medicine 05/10/22 Business Services Officer Relationship Specialty Start Date End Date Fito Chavez MD [address] [facility] [address] PCP - General Family Medicine 09/11/13 Mio Garcia [address] [place] [address] Special Service Officer Cardiology 07/20/21 Kiko Slaughter [address] [place] [address] Staff Design Engineer Internal Medicine 09/16/21 Lopez Brown, RN [address] [place] [phone] Barley Steeper Family Medicine 05/10/22 Business Services Officer Relationship Specialty Start Date End Date Fito Chavez MD [address] [facility] [place] [address] PCP - General Family Medicine 09/11/13 Mio Garcia [address] [place] [address] Special Service Officer Cardiology 07/20/21 Kiko Slaughter [address] [place] [address] Staff Design Engineer Internal Medicine 09/16/21 Lopez Brown, SALVADOR [address] [place] [phone] Barley Steeper Family Medicine 05/10/22 Business Services Officer Relationship Specialty Start Date End Date Fito Chavez MD [address] [facility] [place] [address] PCP - General Family Medicine 09/11/13 Mio Garcia [address] [place] [address] Special Service Officer Cardiology 07/20/21 Kiko Slaughter [address] [place] [address] Staff Design Engineer Internal Medicine 09/16/21 Lopez Brown RN [address] [place], [place] [phone] Barley Steeper Family Medicine 05/10/22 Business Services Officer Relationship Specialty Start Date End Date Fito Chavez MD [address] [place] [address] PCP - General Family Medicine 09/11/13 Mio Garcia [address] [place] [address] Special Service Officer Cardiology 07/20/21 Kiko Slaughter [address] [place] [address] Staff Design Engineer Internal Medicine 09/16/21 Lopez Brown RN [address] [place], [place] [phone] Barley Steeper Family [facility] 05/10/22 Business Services Officer Relationship Specialty Start Date End Date Fito Chavez MD [address] [place] [address] PCP - General Family Medicine 09/11/13 Mio Garcia [address] [place] [address] Special Service Officer Cardiology 07/20/21 Kiko Slaughter [address] [place] [address] Staff Design Engineer Internal Medicine 09/16/21 Lopez Brown RN [address] [place], [place] [phone] Barley Steeper Family Medicine 05/10/22 Business Services Officer Relationship Specialty Start Date End Date Fito Chavez MD [address] [place] [address] PCP - General Family Medicine 09/11/13 Mio Garcia MD [address] [place] [address] Special Service Officer Cardiology 07/20/21 Kiko Slaughter [address] [place] [address] Staff Design Engineer Internal Medicine 09/16/21 Lopez Brown, SALVADOR [address] [place] [phone] Barley Steeper Family Medicine 05/10/22 Business Services Officer Relationship Specialty Start Date End Date Fito Chavez MD [address] [facility] [address] PCP - General Family Medicine 09/11/13 Mio Garcia MD [address] [place] [address] Special Service Officer Cardiology 07/20/21 Kiko Slaughter [address] [place] [address] Staff Design Engineer Internal Medicine 09/16/21 Lopez Brown RN [address] [place], [place] [phone] Barley Steeper Family Medicine 05/10/22 Business Services Officer Relationship Specialty Start Date End Date Fito Chavez MD [address] [place] [address] PCP - General Family Medicine 09/11/13 Mio Garcia MD [address] [place] [address] Special Service Officer Cardiology 07/20/21 Kiko Slaughter [address] [place] [address] Staff Design Engineer Internal Medicine 09/16/21 Lopez Brown RN [address] [place], [place] [phone] Barley Steeper [facility] 05/10/22 Business Services Officer Relationship Specialty Start Date End Date Fito Chavez MD [address] [facility] [address] PCP - General Family Medicine 09/11/13 Mio Garcia MD [address] [place] [address] Special Service Officer Cardiology 07/20/21 Kiko Slaughter [address] [place] [phone] Staff Design Engineer Internal Medicine 09/16/21 Lopez Brown RN [address] [place] [address] Barley Steeper Family [facility] 05/10/22 FOR RECORDS PERTAINING TO PATIENTS WHO [...] BE BASED ON THE PRIMARY CLINICAL RECORDS. [facility] [email or web address] [facility]. provides no warranty or guarantee of the accuracy or completeness of information in this document.
[2023-07-31 14:08] LABS: Free T3 2.1 pg/mL (2.18-3.98); Thyroid Stim Hormone (TSH) 2.76 uIU/mL (0.358-3.74)
== END | disposition home or self-care (01) ==
PROVIDERS: PCP Family Medicine; Referring Provider Nurse Practitioner Gerontology; Visit Provider Nurse Practitioner Gerontology
DX: Z79.899 Other long term (current) drug therapy (principal)
CPT/HCPCS: 36415; 84439; 84443; 84481

== ENCOUNTER → 2023-09-11 | Outpatient (CLI) | payer MEDICARE, OTHER, SELFPAY | END | disposition home or self-care (01) | LOC: PSN 09:14 | PROVIDERS: PCP Family Medicine; Referring Provider Nurse Practitioner Gerontology; Visit Provider Nurse Practitioner Gerontology | DX: Z79.899 Other long term (current) drug therapy (principal) | CPT/HCPCS: 94060; 94726; 94729 ==

== ENCOUNTER → 2023-11-29 | Outpatient (CLI) | payer MEDICARE, OTHER, SELFPAY ==
[2023-11-29 11:30] LABS: Absolute Lymphocyte Count 0.89 X10^3/uL (0.83-4.51); Absolute Neutrophil Count 7.4 X10^3/uL (2.0-7.7); Basophil# 0.06 X10^3/uL; Basophil% 0.6 % (0-1); Eosinophil# 0.17 X10^3/uL; Eosinophils% 1.8 % (0-5); Hemoglobin 13.6 g/dL (13.0-16.5); Lymphocyte # 0.89 X10^3/ul (0.83-4.51); Lymphocyte % 9.5 % (19-41); Mean Corpuscular Hgb 31.2 pg (27.0-32.0); Mean Corpuscular Volume 91.7 fL (80-94); Monocyte# 0.82 X10^3/uL; Monocyte% 8.7 % (0-10); NRBC Flagged by Analyzer 0 % (0-5); Neutrophil # 7.43 X10^3/uL (2.7-7.7); Neutrophil % 79.1 % (47-70); Platelet Count 188 K/mm3 (150-450); RBC Distribution Width CV 13.3 % (11.6-14.6); RBC Distribution Width SD 45.4 fl (35.1-43.9); Red Blood Count 4.36 M/mm3 (4.6-6.2); White Blood Count 9.4 K/mm3 (4.4-11.0)
[2023-11-29 12:04] LABS: Anion Gap 5 (5-15); BUN 17 mg/dL (7-18); BUN/Creat Ratio 15.5 RATIO (10-20); Calcium,Total 8.5 mg/dL (8.5-10.1); Chloride 111 mmol/L (98-107); EST Glomerular Filtration Rate 69 mL/min (>60); Est Glom Filt Rate - Afr Amer 83 mL/min (>60); Glucose 149 mg/dL (74-106); Potassium 3.9 mmol/L (3.5-5.1); Sodium Level 142 mmol/L (136-145); Thyroid Stim Hormone (TSH) 3.49 uIU/mL (0.358-3.74)
== END | disposition home or self-care (01) ==
LOC: LAB 10:38
PROVIDERS: PCP Family Medicine; Referring Provider Nurse Practitioner Gerontology; Visit Provider Nurse Practitioner Gerontology
DX: R06.09 Other forms of dyspnea (principal); R53.83 Other fatigue
CPT/HCPCS: 36415; 80048; 83880; 84443; 85025

== ENCOUNTER → 2024-01-02 | Outpatient (CLI) | payer MEDICARE, OTHER, SELFPAY ==
--- NOTE | 2024-01-02 13:03 | ECHOCS_ITS ---
Reason For Study: DYSPNEA Procedure This was a 2D Doppler, Color Flow transthoracic echocardiogram. The study was technically difficult. Contrast injection was performed. Exam performed in department. Left Ventricle Normal LV size. Left ventricular systolic function is normal. The left ventricular ejection fraction is 60 %. Stage 2 diastolic dysfunction. No regional wall motion abnormalities noted. Right Ventricle Normal right ventricle. ICD or pacer leads identified within the right ventricle. Normal systolic function. Atria The left atrium is mildly enlarged. Normal right atrium. Mitral Valve Normal mitral valve. Tricuspid Valve The tricuspid valve is not well visualized. Mild (1+) tricuspid valve insufficiency. Pulmonary artery systolic pressure is 30 mmHg. Aortic Valve Trisinus/trileaflet aortic valve. Pulmonic Valve Normal pulmonic valve. Great Vessels Normal aortic root. The pulmonary artery is normal size. Normal inferior vena cava. Pericardium/Pleural No pericardial effusion. Medication 22 gauge I.V. with prn adaptor inserted into left arm. Diluted definity 2.5ml given slow IV push to enhance endocardial definition. MMode/2D Measurements & Calculations LVIDd: 4.7 cm IVSd: 1.3 cm LVOT diam: 2.0 cm LVIDs: 3.6 cm LVPWd: 1.2 cm RVDd: 3.8 cm FS: 24.7 % LVOT area: 3.1 cm2 Ao root diam: 3.2 cm LAV(MOD-bp): 70.9 ml LVAd ap4: 37.0 cm2 LAV(MOD-bp) Indexed: 35.4 ml/m2 LVLd ap4: 7.9 cm LAV(MOD-sp2): 63.6 ml EDV(MOD-sp4): 145.5 ml LAV(MOD-sp4): 77.1 ml EDV(sp4-el): 147.7 ml LVAs ap4: 22.8 cm2 LVLs ap4: 7.3 cm ESV(MOD-sp4): 60.6 ml ESV(sp4-el): 60.4 ml EF(MOD-sp4): 58.4 % EF(sp4-el): 59.1 % LVAd ap2: 36.8 cm2 SV(MOD-sp4): 84.9 ml SV(MOD-sp2): 85.8 ml LVLd ap2: 7.9 cm EDV(MOD-sp2): 143.6 ml EDV(sp2-el): 145.3 ml LVAs ap2: 22.7 cm2 LVLs ap2: 7.7 cm ESV(MOD-sp2): 57.8 ml ESV(sp2-el): 56.6 ml EF(MOD-sp2): 59.7 % SV(sp4-el): 87.2 ml LA dimension(2D): 4.1 cm LA A4 area: 23.7 cm2 RA A4 area: 11.5 cm2 TAPSE: 1.0 cm Time Measurements MV dec time: 0.22 sec Doppler Measurements & Calculations MV E max walt: 83.8 cm/sec Lat Peak E' Walt: 6.1 cm/sec Med Peak E' Walt: 7.9 cm/sec MV A max walt: 71.1 cm/sec E/E' lat: 13.8 E/E' med: 10.7 MV E/A: 1.2 Ao V2 max: 120.3 cm/sec LV V1 max: 90.8 cm/sec MV dec slope: 389.2 cm/sec2 Ao max P.8 mmHg LV V1 max P.3 mmHg Ao V2 mean: 81.5 cm/sec LV V1 mean P.1 mmHg Ao mean P.0 mmHg LV V1 mean: 69.4 cm/sec Ao V2 VTI: 23.0 cm LV V1 VTI: 16.5 cm AV (velocity ratio): 0.71 SARAH(I,D): 2.2 cm2 SARAH(V,D): 2.4 cm2 SV(LVOT): 51.5 ml PA V2 max: 64.3 cm/sec TR max walt: 259.1 cm/sec PA max PG (full): 0.36 mmHg TR max P.8 mmHg ECHO/Echo Complete W/ Contrast Interpretation Summary Normal LV size. Left ventricular systolic function is normal. The left ventricular ejection fraction is 60 %. The left atrium is mildly enlarged. Stage 2 diastolic dysfunction. Contrast injection was performed. Ordering Physician: Jasmin Box Referring Physician: Jasmin Box Performed By: Staci Garner RDCS
== END | disposition home or self-care (01) ==
LOC: CVS 12:58
PROVIDERS: PCP Family Medicine; Referring Provider Nurse Practitioner Gerontology; Visit Provider Nurse Practitioner Gerontology
DX: R06.00 Dyspnea, unspecified (principal)
CPT/HCPCS: 93306; Q9957; A4216; C8929

== ENCOUNTER → 2024-01-15 | Outpatient (CLI) | payer MEDICARE, OTHER, SELFPAY ==
[2024-01-15 12:42] VITALS: PULSE 79; PULSE 80; PULSE 83; PULSE 84; PULSE 85; PULSE 86; PULSE 89; O2SAT 89; O2SAT 90; O2SAT 91; O2SAT 92; O2SAT 93
--- NOTE | 2024-01-17 09:51 | WT_ITS ---
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[employer] Assistive device used: None Pre-test Oxygen Delivery Method Room Air Pulse Ox (%) 92 Pulse Rate (60-100 beats/min) 79 Dyspnea Guido Scale (0-10) 0 Exertion Guido Scale (6-20) 6 1st minute Oxygen Delivery Method Room Air Pulse Ox (%) 93 Pulse Rate (60-100 beats/min) 83 2nd minute Oxygen Delivery Method Room Air Pulse Ox (%) 89 Pulse Rate (60-100 beats/min) 84 3rd minute Oxygen Delivery Method Room Air Pulse Ox (%) 90 Pulse Rate (60-100 beats/min) 89 4th minute Oxygen Delivery Method Room Air Pulse Ox (%) 90 Pulse Rate (60-100 beats/min) 89 Number of Rests Taken 1 5th minute Oxygen Delivery Method Room Air Pulse Ox (%) 92 Pulse Rate (60-100 beats/min) 85 6th minute Oxygen Delivery Method Room Air Pulse Ox (%) 91 Pulse Rate (60-100 beats/min) 86 Dyspnea Guido Scale (0-10) 4 Exertion Guido Scale (6-20) 14 Post-test Oxygen Delivery Method Room Air Pulse Ox (%) 93 Pulse Rate (60-100 beats/min) 80 Full Laps Walked 12 Partial Lap, Number of Tiles Walked 22 Total Distance Walked (ft) 730 Interpretation Interpretation: The patient ambulated 730 feet over the course of 6 minutes beginning on room air without assistive devices. Pretesting oxygen saturation was noted to be 92% on room air. With ambulation, the morenita oxygen saturation was 89%. There was no significant exertional oxygen desaturation. Recommendations Recommendations: There is no indication for the use of supplemental oxygen at this time.
== END | disposition home or self-care (01) ==
LOC: PSN 12:24
PROVIDERS: PCP Family Medicine; Referring Provider Nurse Practitioner Acute Care; Visit Provider Nurse Practitioner Acute Care
DX: R06.09 Other forms of dyspnea (principal)
CPT/HCPCS: 94618

== ENCOUNTER → 2024-03-15 | Outpatient (CLI) | payer MEDICARE, OTHER, SELFPAY ==
--- NOTE | 2024-03-15 09:04 | CT_ITS ---
HISTORY: multiple lung nodules in high risk patient. TECHNIQUE: Helically acquired images were obtained of the chest without contrast. A radiation dose optimization technique was used for this scan. 950 images. COMPARISON: 10/02/2023, 05/20/2019. FINDINGS: LARGE AIRWAYS: Patent. LUNGS: Chronic mild peripheral reticular scarring and mild centrilobular emphysema. Small calcified right middle and lower lobe granulomas. Stable 4 mm triangular right upper lobe fissural nodule stable mild left lower lobe scarring which require no follow-up. PLEURA: No pneumothorax or significant pleural effusion. HEART/PERICARDIUM: Heart within normal limits in size with biventricular pacemaker defibrillator in place coronary artery disease present. Midline sternotomy. No pericardial effusion. VESSELS: Thoracic aorta nondilated. MEDIASTINUM/JULEE: No pathologically enlarged adenopathy. UPPER ABDOMEN: Colonic diverticulosis. Stable small cyst left hepatic lobe. Multiple calcified gallstones. Calcified splenic granulomas. Subcentimeter left renal hyperdense lesion and incompletely imaged small cyst. BONES: Degenerative change and mild scoliosis. CT/Chest without Contrast IMPRESSION: No evidence of acute abnormality in the chest. No significant interval change in small pulmonary nodules and scars. Mild emphysema and chronic interstitial changes. Presence of pulmonary emphysema on CT is an independent risk factor for lung cancer. Consider LDCT lung cancer screening in the future. Cholelithiasis. Small left renal lesions; recommend follow-up or ultrasound. Electronically Signed: Consuelo Rodriguez MD at 11:38 EDT ,
== END | disposition home or self-care (01) ==
LOC: CT 09:03
PROVIDERS: PCP Family Medicine; Referring Provider Nurse Practitioner Acute Care; Visit Provider Nurse Practitioner Acute Care
DX: R91.8 Other nonspecific abnormal finding of lung field (principal)
CPT/HCPCS: 71250

== ENCOUNTER → 2024-04-18 | Outpatient (CLI) | payer MEDICARE, OTHER, SELFPAY ==
--- NOTE | 2024-04-18 08:13 | CDU_ITS ---
Reason For Study: Carotid Artery Disease Rt. Velocities/BP Lt. Velocities/BP Prox CCA 37.4/7.5 cm/sec. Prox CCA 43.8/9.0 cm/sec. Mid CCA 40.3/9.0 cm/sec. Mid CCA 41.0/9.7 cm/sec. Dist CCA 43.1/9.0 cm/sec. Dist CCA 33.9/8.3 cm/sec. Prox ICA 89.1/22.8 cm/sec. Prox ICA 350.2/90.8 cm/sec. Mid ICA 52.3/13.0 cm/sec. Mid ICA 63.6/17.9 cm/sec. Dist ICA 62.2/17.1 cm/sec. Dist ICA 47.4/13.2 cm/sec. Rt. ICA/CCA = 2.1. Lt. ICA/CCA = 8.5. Prox ECA 83.1/8.4 cm/sec. Prox ECA 71.5/4.8 cm/sec. Rt. Vert. 33.9/11.1 cm/sec. Lt. Vert. 29.0/7.3 cm/sec. Right Extracranial There is intimal thickening but no significant atherosclerotic plaque noted in the right common carotid artery. There is heterogeneous, irregular atherosclerotic plaque noted in the right internal carotid artery. There is intimal thickening but no significant atherosclerotic plaque noted in the right external carotid artery. Antegrade flow is noted in the right vertebral artery. Left Extracranial There is heterogeneous, irregular atherosclerotic plaque noted in the left common carotid artery. There is heterogeneous, irregular atherosclerotic plaque noted in the left internal carotid artery. There is heterogeneous, irregular atherosclerotic plaque noted in the left external carotid artery. Antegrade flow is noted in the left vertebral artery. Procedure Carotid Duplex [id number]. This is a Carotid Duplex examination using B-mode, color flow and specral Doppler. The exam was diagnostic. Exam performed in department. VL/Carotid Duplex Ultrasound Interpretation Summary Mild (<50%) stenosis right extracranial internal carotid. Severe (>70%) stenosis left extracranial internal carotid. Patent and antegrade vertebrals bilaterally. Ordering Physician: Fredo Levin Referring Physician: Fito Velez Performed By: William Jose RVT
[2024-04-18 09:26] LABS: Anion Gap 4 (5-15); BUN 16 mg/dL (7-18); Calcium,Total 8.8 mg/dL (8.5-10.1); Chloride 110 mmol/L (98-107); Creatinine, Serum 1.07 mg/dL (0.70-1.30); EST Glomerular Filtration Rate 71 mL/min (>60); Est Glom Filt Rate - Afr Amer 85 mL/min (>60); Glucose 121 mg/dL (74-106); Potassium 3.9 mmol/L (3.5-5.1); Sodium Level 140 mmol/L (136-145)
== END | disposition home or self-care (01) ==
LOC: CVS 08:10
PROVIDERS: PCP Family Medicine; Referring Provider Internal Medicine Cardiovascular Disease; Visit Provider Internal Medicine Cardiovascular Disease
DX: R42 Dizziness and giddiness (principal)
CPT/HCPCS: 36415; 80048; 93880

== ENCOUNTER → 2024-05-15 | Outpatient (CLI) | payer MEDICARE, OTHER, SELFPAY | END | disposition home or self-care (01) | LOC: CVS 13:51 | PROVIDERS: PCP Family Medicine; Referring Provider Physician Assistant; Visit Provider Physician Assistant | DX: I73.9 Peripheral vascular disease, unspecified (principal) | CPT/HCPCS: 93922; 93925 ==

== ENCOUNTER → 2024-05-29 | Outpatient (CLI) | payer MEDICARE, OTHER, SELFPAY ==
--- NOTE | 2024-05-29 14:37 | CT_ITS ---
STUDY: CTA HEAD AND NECK WITH CONTRAST REASON FOR EXAM: Male, 78 years old. L ICA stenosis, abnormal ultrasound RADIATION DOSAGE (If Supplied By Facility): CTDIvol = ( 25.47 ) mGy, DLP = ( 1598.05 ) mGycm TECHNIQUE: CT angiography was performed with a multi-detector CT scanner. Data acquisition was obtained from the skull base through the vertex following intravenous administration of 100mL Isovue-370. MIP images were reconstructed from the axial data set. Post-processing of the angiographic images was performed, with multiplanar reformation and 3D reconstruction. Individualized dose optimization techniques were used for this CT. COMPARISON: Ultrasound April 18, 2024. CTA February 07, 2021 FINDINGS: Normal bilateral petrous carotid arteries. There is calcified plaque formation of the right cavernous carotid artery, without a cross-sectional luminal stenosis. There is ectatic elongation and tortuosity of the left cavernous carotid artery without a demonstrated hemodynamically significant stenosis. Normal right A1 segments of the anterior cerebral artery. Normal left A1 segments of the anterior cerebral artery. Normal intact anterior communicating artery (ACOM). Normal bilateral A2 segments of the anterior cerebral arteries. Normal right M1 and M2 segments of the middle cerebral arteries, with a normal M1 bifurcation. Normal left M1 and M2 segments of the middle cerebral arteries, with a normal M1 bifurcation. Normal right posterior communicating artery (PCOM). There is non-visualization of the left posterior communicating artery (PCOM). There is mild narrowing of the distal left vertebral artery Normal basilar artery with a normal basilar bifurcation. The visualized bilateral superior cerebellar (SCA) arteries are normal. Normal bilateral P1, P2 and visualized P3 segments of the posterior cerebral arteries. There is no demonstrated aneurysm of the torres [place] of [place]. There is no demonstrated abnormality of the visualized brain. AORTIC ARCH: There is atherosclerotic calcific plaque formation of the aortic arch and great vessels arising from the aortic arch, without a hemodynamically significant stenosis. There is a normal origin of the brachiocephalic, left common carotid, and left subclavian arteries. RIGHT CAROTID ARTERIES: Normal right common carotid artery (CCA). There is mild atherosclerotic plaque formation with minimal narrowing of the right carotid bulb. There is mild atherosclerotic plaque formation of the origin of the right internal carotid artery with less than 50% cross sectional diameter stenosis. Normal visualized cervical portion of the right internal carotid artery. Normal origin of the right external carotid artery (ECA). LEFT CAROTID ARTERIES: Normal left common carotid artery (CCA). There is extensive atherosclerotic plaque formation with severe narrowing of the carotid bulb with a hemodynamically significant stenosis. There is extensive atherosclerotic plaque formation of the origin of the left internal carotid artery with an estimated stenosis of greater than 90%. Normal visualized cervical portion of the left internal carotid artery. Normal origin of the left external carotid artery (ECA). VERTEBRAL ARTERIES: Normal bilateral vertebral arteries. CT/CTA Head AND Neck W/ Contrast IMPRESSION: Severe, greater than 90%, left internal carotid artery stenosis. Mild right internal carotid artery stenosis. Electronically Signed: Edil Mason MD at 8:23 [facility] ,
[2024-05-29 15:21] LABS: CREATININE FINGERSTICK < 1.0 mg/dL (0.70-1.30); EGFR FINGERSTICK > 60.0000 mL/min (>60)
== END | disposition home or self-care (01) ==
LOC: CT 14:37
PROVIDERS: PCP Family Medicine; Referring Provider Physician Assistant; Visit Provider Physician Assistant
DX: Z01.812 Encounter for preprocedural laboratory examination (principal); I77.9 Disorder of arteries and arterioles, unspecified
CPT/HCPCS: 70496; 70498; Q9967

== ENCOUNTER 2024-07-15 10:13 | Inpatient (IN) | payer MEDICARE, OTHER, SELFPAY ==
--- NOTE | 2024-07-14 08:59 | EKG12_ITS ---
Test Reason : PRE OP Blood Pressure : */* mmHG Vent. Rate : 70 BPM Atrial Rate : 394 BPM P-R Int : * ms QRS Dur : 174 ms QT Int : 506 ms P-R-T Axes : * -78 92 degrees QTcB Int : 546 ms Electronic ventricular pacemaker Confirmed by Joel Anders ([id number]), bilingual customer service specialist WHITNEY SUÁREZ ([id number]) on 07/14/2024 1:05:14 PM Referred By: Kj To Confirmed By: Joel Anders
[2024-07-14 10:01] LABS: Hematocrit 41.2 % (40-54); Hemoglobin 13.2 g/dL (13.0-16.5); Mean Corpuscular Hgb 29.7 pg (27.0-32.0); Mean Corpuscular Volume 92.6 fL (80-94); Mean Platelet Vol. 11.5 fl (6.2-12.0); Platelet Count 164 K/mm3 (150-450); RBC Distribution Width CV 14.3 % (11.6-14.6); RBC Distribution Width SD 48.6 fl (35.1-43.9); Red Blood Count 4.45 M/mm3 (4.6-6.2); White Blood Count 11.3 K/mm3 (4.4-11.0)
[2024-07-14 11:27] LABS: Anion Gap 6 (5-15); BUN 19 mg/dL (7-18); BUN/Creat Ratio 15.4 RATIO (10-20); Calcium,Total 8.4 mg/dL (8.5-10.1); Chloride 108 mmol/L (98-107); Creatinine, Serum 1.23 mg/dL (0.70-1.30); EST Glomerular Filtration Rate 60 mL/min (>60); Est Glom Filt Rate - Afr Amer 73 mL/min (>60); Glucose 176 mg/dL (74-106); Potassium 3.3 mmol/L (3.5-5.1); Sodium Level 140 mmol/L (136-145)
--- NOTE | 2024-07-14 12:27 | PAT.ANESEVAL ---
Pre-Assessment Diagnosis/Proposed Procedure Planned Operative Procedure(s): LEFT CAROTID ENDARTERECTOMY Anesthesia History Anesthesia History - master esthetician: Anesthesia History - master esthetician Hx Hospitalization No 07/01/24 10:20 Any Problems With Anesthesia No 07/01/24 10:20 Cholinesterase deficiency No 07/01/24 10:20 You/Your Family Experience No 07/01/24 10:20 fever (hyperthermia) with Relationship Recent Exposure to Contagious No 03/30/20 06:16 Disease Does patient have nerve No 07/01/24 10:20 stimulator Patient instructed to have device shut off --Does patient have Pacemaker or ICD? When Was Last Pacemaker Check 10/28/19 07/28/21 09:11 QUESTION #4 FULL TEXT: You/Your Family Experience fever (hyperthermia) with Anesthesia Last Oral Intake Last Oral intake: Last Oral Intake NPO since Meds taken in AM with sips of water? Meds patient instructed to take am of surgery PONV PONV - master esthetician: PONV - master esthetician Female No 07/01/24 10:20 HX of Motion Sickness Yes 07/01/24 10:20 HX of N/V After Surgery No 07/01/24 10:20 Non-Smoker Yes 07/01/24 10:20 Duration of Surgery greater Yes 07/01/24 10:20 than 60 minutes Number of Risk Factors 3 07/01/24 10:20 PONV Score Moderate Risk 07/01/24 10:20 Height & Weight Height & Weight: Anesthesia: Height & Weight Height 5 ft 7 in 05/20/24 07:48 Respiratory Assessment Respiratory Assessment - master esthetician: Respiratory Tract Infection Hx - master esthetician Hx Respiratory Tract Infection No 07/01/24 10:20 STOP Sleep Apnea STOP Sleep Apnea - master esthetician: STOP Sleep Apnea - master esthetician Hx Hypertension Yes: CONTROLLED WITH MEDS 07/01/24 10:20 Hx Sleep Apnea Yes 07/01/24 10:20 CPAP Yes: NONCOMPLIANT 07/01/24 10:20 BIPAP No 07/01/24 10:20 Do you snore loudly (louder Yes 07/01/24 10:20 than talking or can be heard Do you often feel tired/ No 07/01/24 10:20 fatigued/ sleepy during daytime? Has anyone observed you stop No 07/01/24 10:20 breathing during sleep? STOP Results Positive 07/01/24 10:20 QUESTION #5 FULL TEXT : Do you snore loudly (louder than talking or can be heard through closed doors)? Tobacco Use History Tobacco Use History - master esthetician: Tobacco Use History - master esthetician Tobacco Use Smoking Status Former smoker 07/01/24 10:20 Hx Tobacco Use No 07/01/24 10:20 Years Smoking Packs Smoked per Day Smoking Cessation Date was No - quit smoking greater 07/01/24 10:20 within the last 15 years than 15 years ago Hx Smoking Cessation Date 04/08/08 07/01/24 10:20 Hx Smoking Cessation No 07/01/24 10:20 Counseling Hematologic Medial History Hematologic Hx - master esthetician: Hematologic Medical Hx - mammography tech Hx of Blood Transfusion No 07/01/24 10:20 Hx of Transfusion in last 3 No 07/01/24 10:20 Months Date of Last Transfusion (if within last 3 months) Ever experience any problems No 07/01/24 10:20 with transfusion(s)? Specify any problems Hx of Preganancy in last 3 N/A 07/01/24 10:20 Months Nurse Filling Out Transfusion DSCHRIBER 07/01/24 10:20 & Questions: Date: 07/01/24 07/01/24 10:20 Time: 10:22 07/01/24 10:20 Patient unable to answer at this time (ie. confused, unrespo /Reproduction History /Reproductive History - master esthetician: /Reproductive Hx- master esthetician Hx Now No 07/01/24 10:20 Gestational Age (in weeks): EDC: Hx Hx Para Hx Section SAB No 07/01/24 10:20 Active Medications Active Medications: Current Medications Generic Name Dose Route Start Last Admin Trade Name Freq PRN Reason Stop Dose Admin Cefazolin Sodium 3 gm/ N/A 30 mls @ 600 mls/hr 07/15/24 07:30 IV 07/15/24 07:32 X1 ONE [facility] Medical History (Updated 07/01/24 @ 10:34 by Shelley Poon) Wears glasses Wears dentures Cancer Arthritis Prostate disease High cholesterol Back pain Blackout Syncope Dietary restriction History of ulceration Heartburn CPAP (continuous positive airway pressure) dependence Asthma Shortness of breath on exertion History of pain when walking History of edema History of stress test History of echocardiogram Cardiology follow-up encounter Injury of head and neck Diabetes Former smoker On home oxygen therapy ICD (implantable cardioverter-defibrillator) in place Pacemaker Congestive heart failure (CHF) Myocardial infarct Coronary artery disease Hypertension Stroke/cerebrovascular accident Near syncope NSVT (nonsustained ventricular tachycardia) Atrial flutter Femoral artery aneurysm, right Hyperlipidemia, unspecified Essential (primary) hypertension T-cell lymphoma Atherosclerotic heart disease of [place] coronary artery without angina pectoris COPD (chronic obstructive pulmonary disease) Carotid artery disease Influenza B Shortness of breath Nicotine dependence in remission Obesity Allergic rhinitis Ischemic cardiomyopathy Peripheral vascular disease CAD (coronary artery disease) Home Medications ?Medication ?Instructions ?Recorded ?Last Taken ?Type ramipril 10 mg capsule 10 mg PO BID blood pressure 12/25/13 02/13/21 History fluticasone propionate 50 50 mcg intranasal QDAY PRN 06/25/17 02/13/21 History mcg/actuation nasal Congestion spray,suspension (Flonase Allergy Relief) atorvastatin 80 mg tablet 80 mg PO QHS cholesterol 08/14/17 02/13/21 History ipratropium 0.5 mg-albuterol 3 mg 3 ml inhalation Q4HWA.RT PRN Sob 09/03/18 05/06/20 History (2.5 mg base)/3 mL nebulization &/Or Wheezing soln isosorbide mononitrate 30 mg 30 mg PO BID blood pressure 10/28/19 02/13/21 History tablet,extended release 24 hr montelukast 10 mg tablet 10 mg PO DAILY allergy 02/17/20 02/13/21 History metformin 500 mg tablet 500 mg PO BID blood glucose 06/28/20 02/13/21 History acetaminophen 500 mg tablet 1,000 mg (2 x 500 mg) PO Q8H PRN 04/26/23 02/14/21 Rx (Tylenol Extra Strength) PRN Pain #30 tabs budesonide-formoterol HFA 160 2 puff inhalation Q12H ASTHMA #3 01/18/24 Unknown Rx mcg-4.5 mcg/actuation aerosol device inhaler (Symbicort) carvedilol 12.5 mg tablet 12.5 mg PO BID HEART #180 tabs 01/18/24 Unknown Rx nitroglycerin 0.4 mg sublingual 0.4 mg sublingual Q5M PRN Chest 03/20/24 Unknown Rx tablet Pain #25 tabs apixaban 5 mg tablet (Eliquis) 5 mg PO BID BLOOD THINNER #180 tabs 04/07/24 Unknown Rx albuterol sulfate 2.5 mg/3 mL 2.5 mg inhalation Q4H PRN PRN SOB 07/01/24 Unknown History (0.083 %) solution for nebulization amlodipine 5 mg tablet 5 mg PO DAILY BP 07/01/24 Unknown History guaifenesin 1,200 mg tablet, 1,200 mg PO Q12H PRN PRN congestion 07/01/24 Unknown History extended release 12 hr Allergy/AdvReac Type Severity Reaction Status Date / Time ciprofloxacin (From Cipro) Allergy Swelling Verified 07/01/24 10:11 ciprofloxacin HCl (From Allergy hand Verified 07/01/24 10:11 Cipro) Swelling Sulfa (Sulfonamide Allergy Unknown Verified 07/01/24 10:11 Antibiotics) Family History Father Heart disease Cancer Prostate Brother Cancer prostate cancer Surgical History (Updated 07/01/24 @ 10:34 by Shelley Poon) Hx of CABG History of coronary artery stent placement History of left knee replacement h/o left TKA History of tonsillectomy Presence of biventricular implantable cardioverter-defibrillator (ICD) (04/22/12) Presence of stent in coronary artery Aortocoronary bypass status (~05/17/12) History of permanent cardiac pacemaker placement Hx of CABG Presence of other cardiac implants and grafts Social History household members: none Smoking Status: Former smoker pack-years: 75 how long ago did patient quit smokin years ago second hand exposure: No alcohol intake: current alcohol intake frequency: holidays/special occasions only Alcohol type: beer substance use type: does not use caffeine: Yes Type: carbonated beverages Number of servings: 1 Audit: Pertinent Findings Pertinent Findings Echo (EF%) pertinent findings: 01/02/2024 ejection fraction 60% recovered from prior echo currently has AICD Consult pertinent findings: Cardiology 03/20/2024 coronary coronary artery disease chronic status post CABG 2 ischemic cardiomyopathy does have AICD left ventricular function has recovered on MANNY inhibitor's and beta-blockers 3 atrial flutter 4 nonsustained ventricular tachycardia on beta-clarita [address] 6 hypertension 7 core carotid artery disease we will repeat bilateral carotid Doppler and refer to vascular surgeon if necessary Recommendation Anesthesia Recommendation Anesthesia recommendation: OPTIMIZED for anesthesia
[2024-07-14 12:35] LABS: Hemoglobin A1c 6.4 % (3.8-5.6)
[2024-07-15] VITALS (27 sets, daily range): BP systolic 118–186; BP diastolic 53–98; PULSE 70–707; RESP 16–22; TEMP 36.1–36.8; O2SAT 89–96; BMI 30.2; BMI 31.4
--- NOTE | 2024-07-15 | PLAQ_PTH ---
PATIENT: MACIE NAVA LOC: [facility] U#:[id number] AGE/SX: 78/M ROOM: ICU08 RE07/15/[address]: Dr. Kj To MD : [id number] BED: 1 DIS: 07/17/2024 SPEC #: [id number] RECD: 07/15/24 12:44 STATUS: SOUT REQ #: [id number] PATO: 07/15/24 00:[address]: Kj To DEPT: SURGICAL PATHOLOGY RECD BY: Johnson Hernandez ENTERED: 07/15/24 12:44 SP TYPE: PLAQUE OTHR DR: MD Dr. Fito Montalvo MD Tissues: PLAQUE Procedures: Decalcification bone/plaque Surgery Specimen Level III HEADER OPERATION: Left carotid endarterectomy PRE-OP DIAGNOSIS: Chronic left carotid stenosis TISSUE SUBMITTED: Left carotid plaque MICROSCOPIC DIAGNOSIS Left carotid plaque, endarterectomy: Pieces of atherosclerotic tissue with moderate to marked calcification (plaque). YOHANA. 07/18/2024 GROSS DESCRIPTION Received in fixative is one container labeled with the patient's name and designated Left carotid plaque. The specimen consists of a Y shaped piece of monte indurated tissue measuring 2.0cm in length and 1.0cm in diameter. This piece is previously opened. Also present in the container is a piece of monte indurated tissue measuring 1.7 x 0.5 x 0.2cm. The specimen cuts with a gritty sensation. Zoning Engineer tissue is submitted in one cassette after decalcification. YOHANAGinger 07/15/2024 TC:5 [facility]:[id number]
[2024-07-15] MEDS: 0.9% Normal Saline (1000mL) 1,000 ML 15 ML IV (05:45)
--- NOTE | 2024-07-15 06:26 | PRE.ANES_ITS ---
ASA Classification* ASA Classification ASA Classification: 3 Assessment & Plan Anesthesia* Anesthesia Assessment Anesthesia Assessment: Discussed sedation and/or anesthesia options, risks, benefits, and alternatives with patient/parents/legal guardian/POA. Questions invited. The patient/parents/legal guardian/POA seems to understand and agrees to proceed with anesthesia plan. Reviewed the physical assessment, medical history, allergy history and patient home medications list prior to surgery/procedure/anesthetic and documented any changes. Performed airway and anesthesia risk assessments. Anesthesia Type Anesthesia Type: General (Patient is informed of placement of arterial line as well.) History Source History Obtained from:: Patient and Chart Anesthesia Focused Assessment* Temperature: 98.2 F Pulse Rate: 70 Blood Pressure: 182/98 Respiratory Rate: 16 Pulse Ox: 96 Oxygen Delivery Method: Room Air Airway Assessment Mouth opens: >3 cm Mallampati Score: IV Teeth Condition: Dentures (Patient has full upper and lower dentures.) Neck Range of motion (ROM): Limited ROM Focused Labs Anesthesia Preop lab: CBC WBC 11.3 K/mm3 (4.4-11.0) H 07/14/24 09:27 RBC 4.45 M/mm3 (4.6-6.2) L 07/14/24 09:27 Hgb 13.2 g/dL (13.0-16.5) 07/14/24 09:27 Hct 41.2 % (40-54) 07/14/24 09:27 Plt Count 164 K/mm3 (150-450) 07/14/24 09:27 CHEMISTRY Potassium 3.3 mmol/L (3.5-5.1) L 07/14/24 09:27 Sodium 140 mmol/L (136-145) 07/14/24 09:27 Magnesium 2.3 mg/dL (1.6-2.6) 04/23/23 16:35 BUN 19 mg/dL (7-18) H 07/14/24 09:27 Creatinine 1.23 mg/dL (0.70-1.30) 07/14/24 09:27 Glucose 176 mg/dL (74-106) H 07/14/24 09:27 POC Glucose 277 mg/dL (74-106) H 04/26/23 11:50 TSH 3.49 uIU/mL (0.358-3.74) 11/29/23 10:41 COAG PT 18.4 SECONDS (11.7-14.9) H 04/23/23 14:06 Pre-Assessment Diagnosis/Proposed Procedure Planned Operative Procedure(s): LEFT CAROTID ENDARTERECTOMY Anesthesia History Anesthesia History - legal instruments examiner: Anesthesia History - legal instruments examiner Hx Hospitalization No 07/01/24 10:20 Any Problems With Anesthesia No 07/01/24 10:20 Cholinesterase deficiency No 07/01/24 10:20 You/Your Family Experience No 07/01/24 10:20 fever (hyperthermia) with Relationship Recent Exposure to Contagious No 07/15/24 06:15 Disease Does patient have nerve No 07/01/24 10:20 stimulator Patient instructed to have device shut off --Does patient have Pacemaker Yes 07/15/24 06:15 or ICD? When Was Last Pacemaker Check 10/28/19 07/28/21 09:11 QUESTION #4 FULL TEXT: You/Your Family Experience fever (hyperthermia) with Anesthesia Last Oral Intake Last Oral intake: Last Oral Intake NPO since 22:00 07/15/24 06:15 Meds taken in AM with sips of No 07/15/24 06:15 water? Meds patient instructed to take am of surgery PONV PONV - legal instruments examiner: PONV - legal instruments examiner Female No 07/01/24 10:20 HX of Motion Sickness Yes 07/01/24 10:20 HX of N/V After Surgery No 07/01/24 10:20 Non-Smoker Yes 07/01/24 10:20 Duration of Surgery greater Yes 07/01/24 10:20 than 60 minutes Number of Risk Factors 3 07/01/24 10:20 PONV Score Moderate Risk 07/01/24 10:20 Height & Weight Height & Weight: Anesthesia: Height & Weight Height 5 ft 7 in 07/15/24 06:15 Weight: 87.4 kg 07/15/24 06:15 Body Mass Index (BMI) 30.2 07/15/24 06:15 Respiratory Assessment Respiratory Assessment - legal instruments examiner: Respiratory Tract Infection Hx - legal instruments examiner Hx Respiratory Tract Infection No 07/01/24 10:20 STOP Sleep Apnea STOP Sleep Apnea - legal instruments examiner: STOP Sleep Apnea - legal instruments examiner Hx Hypertension Yes: CONTROLLED WITH MEDS 07/01/24 10:20 Hx Sleep Apnea Yes 07/01/24 10:20 CPAP Yes: NONCOMPLIANT 07/01/24 10:20 BIPAP No 07/01/24 10:20 Do you snore loudly (louder Yes 07/01/24 10:20 than talking or can be heard Do you often feel tired/ No 07/01/24 10:20 fatigued/ sleepy during daytime? Has anyone observed you stop No 07/01/24 10:20 breathing during sleep? STOP Results Positive 07/01/24 10:20 QUESTION #5 FULL TEXT : Do you snore loudly (louder than talking or can be heard through closed doors)? 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 Specify any problems Hx of Preganancy in last 3 N/A 07/01/24 10:20 Months Nurse Filling Out Transfusion DSCHRIBER 07/01/24 10:20 & Questions: Date: 07/01/24 07/01/24 10:20 Time: 10:22 07/01/24 10:20 Patient unable to answer at this time (ie. confused, unrespo /Reproduction History /Reproductive History - legal instruments examiner: /Reproductive Hx- legal instruments examiner Hx Now No 07/01/24 10:20 Gestational Age (in weeks): EDC: Hx Hx Para Hx Section SAB No 07/01/24 10:20 Active Medications Active Medications: Current Medications Generic Name Dose Route Start Last Admin Trade Name Freq PRN Reason Stop Dose Admin Cefazolin Sodium 3 gm/ N/A 30 mls @ 600 mls/hr 07/15/24 07:30 IV 07/15/24 07:32 X1 ONE Sodium Chloride 1,000 mls @ 15 mls/hr 07/15/24 05:45 IV 07/20/24 19:04 .Q48H MARY Protocol Sodium Chloride 500 mls @ 1 mls/hr 07/15/24 05:43 IV .Q48H PRN Saline Flush PFSH Medical History Wears glasses Wears dentures Cancer Arthritis Prostate disease High cholesterol Back pain Blackout Syncope Dietary restriction History of ulceration Heartburn CPAP (continuous positive airway pressure) dependence Asthma Shortness of breath on exertion History of pain when walking History of edema History of stress test History of echocardiogram Cardiology follow-up encounter Injury of head and neck Diabetes Former smoker On home oxygen therapy ICD (implantable cardioverter-defibrillator) in place Pacemaker Congestive heart failure (CHF) Myocardial infarct Coronary artery disease Hypertension Stroke/cerebrovascular accident Near syncope NSVT (nonsustained ventricular tachycardia) Atrial flutter Femoral artery aneurysm, right Hyperlipidemia, unspecified Essential (primary) hypertension T-cell lymphoma Atherosclerotic heart disease of [place] coronary artery without angina pectoris COPD (chronic obstructive pulmonary disease) Carotid artery disease Influenza B Shortness of breath Nicotine dependence in remission Obesity Allergic rhinitis Ischemic cardiomyopathy Peripheral vascular disease CAD (coronary artery disease) Home Medications ?Medication ?Instructions ?Recorded ?Last Taken ?Type ramipril 10 mg capsule 10 mg PO BID blood pressure 12/25/13 02/13/21 History fluticasone propionate 50 50 mcg intranasal QDAY PRN 06/25/17 02/13/21 History mcg/actuation nasal Congestion spray,suspension (Flonase Allergy Relief) atorvastatin 80 mg tablet 80 mg PO QHS cholesterol 08/14/17 02/13/21 History ipratropium 0.5 mg-albuterol 3 mg 3 ml inhalation Q4HWA.RT PRN Sob 09/03/18 05/06/20 History (2.5 mg base)/3 mL nebulization &/Or Wheezing soln isosorbide mononitrate 30 mg 30 mg PO BID blood pressure 10/28/19 02/13/21 History tablet,extended release 24 hr montelukast 10 mg tablet 10 mg PO DAILY allergy 02/17/20 02/13/21 History metformin 500 mg tablet 500 mg PO BID blood glucose 06/28/20 02/13/21 History acetaminophen 500 mg tablet 1,000 mg (2 x 500 mg) PO Q8H PRN 04/26/23 02/14/21 Rx (Tylenol Extra Strength) PRN Pain #30 tabs budesonide-formoterol HFA 160 2 puff inhalation Q12H ASTHMA #3 01/18/24 Unknown Rx mcg-4.5 mcg/actuation aerosol device inhaler (Symbicort) carvedilol 12.5 mg tablet 12.5 mg PO BID HEART #180 tabs 01/18/24 Unknown Rx nitroglycerin 0.4 mg sublingual 0.4 mg sublingual Q5M PRN Chest 03/20/24 Unknown Rx tablet Pain #25 tabs apixaban 5 mg tablet (Eliquis) 5 mg PO BID BLOOD THINNER #180 tabs 04/07/24 Unknown Rx albuterol sulfate 2.5 mg/3 mL 2.5 mg inhalation Q4H PRN PRN SOB 07/01/24 Unknown History (0.083 %) solution for nebulization amlodipine 5 mg tablet 5 mg PO DAILY BP 07/01/24 Unknown History guaifenesin 1,200 mg tablet, 1,200 mg PO Q12H PRN PRN congestion 07/01/24 Unknown History extended release 12 hr Allergy/AdvReac Type Severity Reaction Status Date / Time ciprofloxacin (From Cipro) Allergy Swelling Verified 07/15/24 06:10 ciprofloxacin HCl (From Allergy hand Verified 07/15/24 06:10 Cipro) Swelling Sulfa (Sulfonamide Allergy Unknown Verified 07/15/24 06:10 Antibiotics) Family History Father Heart disease Cancer Prostate Brother Cancer prostate cancer Surgical History Hx of CABG History of coronary artery stent placement History of left knee replacement h/o left TKA History of tonsillectomy Presence of biventricular implantable cardioverter-defibrillator (ICD) (04/22/12) Presence of stent in coronary artery Aortocoronary bypass status (~05/17/12) History of permanent cardiac pacemaker placement Hx of CABG Presence of other cardiac implants and grafts Social History household members: none Smoking Status: Former smoker pack-years: 75 how long ago did patient quit smokin years ago second hand exposure: No alcohol intake: current alcohol intake frequency: holidays/special occasions only Alcohol type: beer substance use type: does not use caffeine: Yes Type: carbonated beverages Number of servings: 1 Review of Systems (Anesthesia) ROS Narrative System reviewed and no additional complaints, except as documented. Physical Exam Resp Resp Narrative: Patient has a slight wheeze at end expiratory. Will plan for nebulizer breathing treatment this morning.
[2024-07-15] MEDS: Ipratropium/Albuterol Sulfate 3 ML AMPUL.NEB INHALATION (07:10)
--- NOTE | 2024-07-15 07:29 | PCM.HP.BLA ---
History and Physical Allergies ciprofloxacin (From Cipro) Allergy (Verified 06/19/24 14:04) Swellingciprofloxacin HCl (From Cipro) Allergy (Verified 06/19/24 14:04) hand SwellingSulfa (Sulfonamide Antibiotics) Allergy (Verified 06/19/24 14:04) Unknown Medications ?Medication ?Instructions ?Recorded ?Confirmed ?Type ramipril 10 mg capsule 10 mg PO BID blood pressure 12/25/13 06/19/24 History fluticasone propionate 50 50 mcg intranasal QDAY PRN 06/25/17 06/19/24 History mcg/actuation nasal Congestion spray,suspension (Flonase Allergy Relief) atorvastatin 80 mg tablet 80 mg PO QHS cholesterol 08/14/17 06/19/24 History ipratropium 0.5 mg-albuterol 3 mg 3 ml inhalation Q4HWA.RT PRN Sob 09/03/18 06/19/24 History (2.5 mg base)/3 mL nebulization &/Or Wheezing soln isosorbide mononitrate 30 mg 30 mg PO BID blood pressure 10/28/19 06/19/24 History tablet,extended release 24 hr montelukast 10 mg tablet 10 mg PO DAILY allergy 02/17/20 06/19/24 History metformin 500 mg tablet 500 mg PO BID blood glucose 06/28/20 06/19/24 History albuterol sulfate 2.5 mg/3 mL 2.5 mg (3 mL) inhalation Q4H PRN 06/17/22 06/19/24 Rx (0.083 %) solution for nebulization #25 vials acetaminophen 500 mg tablet 1,000 mg (2 x 500 mg) PO Q8H PRN 04/26/23 06/19/24 Rx (Tylenol Extra Strength) PRN Pain #30 tabs amlodipine 10 mg tablet 10 mg PO DAILY blood pressure 11/29/23 06/19/24 History guaifenesin 1,200 mg tablet, 1,200 mg PO Q12H #60 tabs 01/14/24 06/19/24 Rx extended release 12 hr tiotropium bromide 2.5 2 inh inhalation QDAY #1 ea 01/14/24 06/19/24 Rx mcg/actuation mist for inhalation (Spiriva Respimat) budesonide-formoterol HFA 160 2 puff inhalation Q12H #3 device 01/18/24 06/19/24 Rx mcg-4.5 mcg/actuation aerosol inhaler (Symbicort) carvedilol 12.5 mg tablet 12.5 mg PO BID #180 tabs 01/18/24 06/19/24 Rx nitroglycerin 0.4 mg sublingual 0.4 mg sublingual Q5M PRN Chest 03/20/24 06/19/24 Rx tablet Pain #25 tabs apixaban 5 mg tablet (Eliquis) 5 mg PO BID #180 tabs 04/07/24 06/19/24 Rx potassium chloride 10 mEq 10 meq PO DAILY #90 TABLETS 06/04/24 06/19/24 Rx tablet,extended release(part/cryst) Have you fallen in the past year?: No PFSH Medical History Hx of bacterial pneumonia Diabetes Former smoker On home oxygen therapy ICD (implantable cardioverter-defibrillator) in place Pacemaker Congestive heart failure (CHF) Myocardial infarct Coronary artery disease Hypertension Stroke/cerebrovascular accident Near syncope NSVT (nonsustained ventricular tachycardia) COVID-19 Atrial flutter Femoral artery aneurysm, right Hyperlipidemia, unspecified Essential (primary) hypertension T-cell lymphoma Atherosclerotic heart disease of [place] coronary artery without angina pectoris BHARAT (obstructive sleep apnea) COPD (chronic obstructive pulmonary disease) Carotid artery disease Influenza B Shortness of breath Nicotine dependence in remission Obesity Allergic rhinitis Ischemic cardiomyopathy Peripheral vascular disease CAD (coronary artery disease) Surgical History Hx of CABG History of coronary artery stent placement History of left knee replacement h/o left TKA History of tonsillectomy Presence of biventricular implantable cardioverter-defibrillator (ICD) (04/22/12) Presence of stent in coronary artery Aortocoronary bypass status (~05/17/12) History of permanent cardiac pacemaker placement Hx of CABG Presence of other cardiac implants and grafts Family History Father Heart disease Cancer ProstateBrother Cancer prostate cancer Social History household members: none Smoking Status: Former smoker pack-years: 75 how long ago did patient quit smokin years ago second hand exposure: No alcohol intake: current alcohol intake frequency: holidays/special occasions only Alcohol type: beer substance use type: does not use caffeine: Yes Type: carbonated beverages Number of servings: 1 HPI HPI HPI: MACEI NAVA, is a 78 M who presents to the office today for evaluation of asymptomatic left carotid artery stenosis. Initially been followed by Dr. Singh for progressively worsening stenosis. At a point where he reached 70% stenosis several years ago he was referred [facility] given his comorbidities and the reviewed imaging and discussed with him that their threshold was 80% stenosis so they did not recommend treatment at that time. In the interval he has had repeat imaging now both duplex and CTA which revealed stenosis of 80% that is highly calcified in nature. He denies any numbness, weakness, vision loss, speech difficulty. He has a history of both prior percutaneous coronary intervention and prior open heart bypass surgery from which she has done well with no exertional symptoms. He has a pacer defibrillator placed prior to his open heart surgery. He also has some mild COPD and uses oxygen at night. He is currently on Eliquis anticoagulation or antiplatelet medications. ROS General General: No weight change, appetite, fatigue, colon cancer, breast cancer or weakness HEENT HEENT: No difficulty swallowing, eye injury, eye surgery, swollen glands or hoarseness Endo Endocrine: Yes diabetes mellitus; No thyroid disease, thyroid cancer, Hair loss, heat intolerance or cold intolerance Skin Skin: No rash or changing moles Musc Musculoskeletal: No back problems, arthritis, rheumatoid arthritis, gout or joint pain Cardio Cardiovascular: Yes pacemaker, heart disease and heart attack; No murmur, atrial fibrillation, high blood pressure, heart stent, palpitations, shortness of breat with exertion or chest pain Psych Psychiatric: No depression, anxiety or hearing voices Resp Respiratory: No shortness of breath, Yes sleep apnea, No cough, Yes COPD, No asthma, No emphysema and No wheezing Gastro Gastrointestinal: No abdominal pain, No nausea or vomiting, No diarrhea, No constipation, No blood in stool, No acid reflux, No hemorrhoids, No ulcers, No gallbladder problem and No black,tarry stools [place] Hematologic: Yes blood thinners, No blood disorders, No bleeding, No anemia and No blood clots Neuro Neurologic: No system reviewed and no additional complaints, except as documented, No as per HPI, No abnormal gait, No abnormal hearing, No abnormal movements, No abnormal speech, No behavioral changes, No burning sensations, No confusion, No convulsions, Yes disequilibrium, Yes dizziness, No localized weakness, No frequent falls, No headache(s), No lack of coordination, No loss of vision, No memory loss, No numbness, No other visual disturbances, No radicular pain, No restless legs, No sensory deficit, No syncope, No tingling, No tremor(s), No weakness and No other Exam Const General: cooperative, healthy appearing, comfortable, no acute distress and well developed Nutritional Appearance: well nourished Orientation: alert, awake and oriented x3 HENMT Head: normocephalic and atraumatic Ears: hearing grossly normal bilaterally Nose: external nose normal Eyes General: appearance normal, both eyes and all related structures EOM: EOM intact bilaterally Neck Neck: normal visual inspection, full ROM, no lymphadenopathy and trachea midline Thyroid: thyroid normal Lymphatic: no lymphadenopathy noted Resp Effort & Inspection: normal respiratory effort, able to speak in complete sentences, symmetric chest movement, no audible wheezes, not labored, no stridor and no use of accessory muscles Auscultation: clear to auscultation bilaterally Cardio Rate: regular rate Rhythm: regular rhythm Heart Sounds: no murmurs Bruits: carotid bruit Pulses: brachial pulses present, radial pulses present, popliteal pulses not present, posterior tibial pulses not present and dorsalis pedis pulses not present Skin General: no rashes or lesions noted and no erythema Wounds: no wounds Neuro Cranial Nerves: CN's II-XI intact bilaterally and EOM intact bilaterally Speech: speech normal Gait: normal gait Motor: strength 5/5 throughout Sensory Exam: no sensory deficits noted Psych Appearance: grossly normal and well kempt Mental Status: mental status grossly normal Mood: congruent mood Speech and Movement: speech and movement normal Thought Content: normal Judgment: judgment good Coding Level of Care Code Off vis,est,level 4 Diagnoses Left carotid stenosis I65.22 Assessment and Plan Assessment and Plan (1) Left carotid stenosis: Status: Chronic Comment: CTA-images reviewed, 81% stenosis of the left internal carotid artery at its origin with dense calcification Plan: -left carotid endarterectomy
[2024-07-15 07:32] LABS: Bedside Glucose 112 mg/dL (74-106)
[2024-07-15] MEDS: Cefazolin 3 GM in Syringe IV (07:56)
[2024-07-15] MEDS: Bupivacaine Mpf 0.5% 30 ML VIAL (08:51)
--- NOTE | 2024-07-15 10:22 | OP.PCM_ITS ---
Operative Report (Standard) Operative Information Date of Procedure: 07/15/24 Pre-Operative Diagnosis: left carotid stenosis Post-Operative Diagnosis: same Surgery/Procedure Performed: left carotid endarterectomy stunner animal: Yes Dental Laboratory Technology Teacher: Verenice Faria Tasks completed by radiology assistant: Opening, Closing, Opening & closing, Altering tissue, Hemostasis: Tie and Retracting Type of Anesthesia: General RN Documented Start/Stop Times: Operation Date: 07/15/24 07:30 Case Time Into Pre-Op 07/15/24 05:41 Out of Pre-Op 07/15/24 07:36 Anesthesia Start 07/15/24 07:38 Into Room 07/15/24 07:38 Procedure Start 07/15/24 08:14 Procedure End 07/15/24 10:33 Anesthesia End 07/15/24 10:45 Out of Room 07/15/24 10:45 Into Recovery 07/15/24 10:50 Out of Recovery 07/15/24 13:08 Procedure Start Time: 08:15 Procedure Stop Time: 10:30 Select all DRAINS/GRAFTS/IMPLANTS that apply: Drains Drain details: 19 Fr TARAS Estimated Blood Loss: 25 Specimen collected: Yes Description of specimen(s) removed: plaque Description of surgery: HPI: Patient is an 78-year-old male with asymptomatic left carotid artery stenosis which is severe. The lesion is significantly calcified and he has not amenable to stenting so he presents now for endarterectomy. Description of procedure: Upon obtaining form consent and verification correct patient procedure site the patient was taken the operating where he was placed under general anesthesia. He was then positioned prepped and draped in usual sterile fashion a timeout was performed. Oblique incision was made along the anterior border the sternocleidomastoid and Bovie electrocautery was dissect down through the subcutaneous tissue. The platysma was divided and further dissection carried down to the sternocleidomastoid and self-retaining retractors put in position. The sternocleidomastoid was then dissected along its anterior edge and retracted laterally exposing the carotid sheath. Sharp dissection was then used to dissect free the anterior border the jugular vein with the facial vein identified, ligated with silk ties, and divided. The jugular vein was then retracted laterally exposing the carotid vessels. Sharp dissection was used dissect free the proximal common carotid artery with care taken to identify and protect the vagus nerve. A right angle was used to place a vessel loop proximally and we then turned our attention to the internal carotid artery distally. Sharp dissection was used dissect free along the lateral aspect of the vessel to soft vessel beyond the area of palpable and visible plaque. A right angle was used to place a vessel loop and care was taken to identify and protect the hypoglossal nerve. The patient was then heparinized allowed to cir culate for 3 minutes during which time sharp dissection was used dissect free the external carotid artery. A writing was used to place a vessel loop at this location and subsequent heparin dosing based on ACT results. Vessels then occluded first of the internal followed by the common and the external. A longitudinal arteriotomy was created with 11 blade extended with Marie scissors on the internal carotid artery beyond the area of plaque. A 12 [place] shunt was then placed first distally and allowed to backbleed before placing proximally in the common carotid artery. The shunt was interrogated Doppler found to be patent with low resistance signal. We then performed an endarterectomy with a freer elevator with satisfactory endpoint distally on the internal carotid artery and eversion endarterectomy on the external carotid artery. The lumen was then flushed with heparinized saline to clear of debris in the distal endpoint tacked with 7-0 Prolene interrupted sutures. A bovine pericardial patch was brought in the field and secured in position using a 6-0 Prolene in a running fashion. Prior to completing suture line the shunt was withdrawn and the vessels back flushed. After completing the suture line the internal carotid artery was released along the backbleed and the bifurcation and then reoccluded at its origin. Clamps were then removed from the external and common carotid artery allowing 10 heartbeats of antegrade flow to flush into the external carotid artery before reestablishing antegrade flow into the internal carotid artery. Vessels were then interrogated with Doppler and found to be patent with appropriate signals. Heparin was then reversed with protamine and the incision inspected for hemostasis. A 19 [place] TARAS was then placed via separate stab incision and the incision closed with 2-0 Vicryl, 3-0 Vicryl, 4 Monocryl and Dermabond for the skin. At the conclusion of case the patient was taken the recovery room moving all extremities command with cranial nerves intact. Surgical Findings: see above Complications Complications: No
--- NOTE | 2024-07-15 10:47 | PCM.POST.ANE ---
Anesthesia: Postop Eval I Current Vital Signs Temperature: 97.3 F Pulse Rate: 70 Blood Pressure: 154/94 (cuff pressure and a-line 180/85 (MAP 119)) Respiratory Rate: 20 Pulse Ox: 96 Oxygen Delivery Method: Simple Mask Oxygen Flow Rate (L/min): 6 Assessment Airway patent: Yes Spontaneous unlabored respirations: Yes Mental status: Awake and Calm nausea: No Vomiting: No Anesthesia Complication: No Fluid Hydration Crystalloid volume administer (ml): 1,000 Total IV fluid infused: 1,000 Progress Note Anesthesia document: Postop Eval 1 completed: Yes
[2024-07-15] MEDS: hydrALAZINE 20 MG/ML Vial 10 MG IV (11:15)
--- NOTE | 2024-07-15 11:44 | SUR.PHASEI ---
RFA IV INFILTRATED ON ARRIVAL TO PACU, REMOVED. DENIES PAIN, NO WARMTH TO TOUCH. NO REDNESS.
[2024-07-15 13:32] LABS: Bedside Glucose 213 mg/dL (74-106)
[2024-07-15] MEDS: oxyCODONE 5 MG Tablet PO ×2 (15:46→20:50)
[2024-07-15] MEDS: Acetaminophen 500 MG Tablet 1000 MG PO ×2 (15:46→20:50)
[2024-07-15] MEDS: Cefazolin 1 GM/50 ML BAG IV ×2 (15:46→23:56)
[2024-07-15] MEDS: Insulin Lispro 100 UNIT/ML INSULN.PEN SC ×2 (16:24→21:18)
[2024-07-15] MEDS: Carvedilol 12.5 MG Tablet PO (16:27)
[2024-07-15] MEDS: Isosorbide Mononitrate 30 MG Tablet PO (16:27)
--- NOTE | 2024-07-15 16:55 | POSTOPAN2_ITS ---
Anesthesia Postop Eval I Sum Postop Eval Completion status Anesthesia document: Postop Eval 1 completed: Yes Anesthesia Postop Eval I Summary Anesthesia Postop Eval I Summary: Anesthesia Postop Eval I: Assessment Summary Airway patent Yes 07/15/24 10:50 [email or web address] Spontaneous unlabored Yes 07/15/24 10:50 PRICER [email or web address].[email or web address] respirations Mental status Awake,Calm 07/15/24 10:50 [email or web address] [email or web address] nausea No 07/15/24 10:50 [email or web address] [email or web address].[email or web address] Vomiting No 07/15/24 10:50 PRICER BAGGER.[email or web address] Anesthesia Postop Eval I: Fluid Summary Crystalloid volume administer 1,000 07/15/24 10:50 [email or web address] (ml) Colloids volume administered ( ml) Blood Product volume administered (ml) Total IV fluid infused 1,000 07/15/24 10:50 PRICER BAGGER.[email or web address] Anesthesia Postop Eval I: Summary Notes Anesthesia Complication No 07/15/24 10:50 PRICER [email or web address] Anesthesia Complication Comment: Post-operative progress note Anesthesia: Postop Eval II Evaluation Mental status: Awake and Calm Pain Level: 1 nausea: No Vomiting: No Complications Anesthesia Complication: No
--- NOTE | 2024-07-15 16:55 | PCM.POSTANE2 ---
Anesthesia Postop Eval I Sum Postop Eval Completion status Anesthesia document: Postop Eval 1 completed: Yes Anesthesia Postop Eval I Summary Anesthesia Postop Eval I Summary: Anesthesia Postop Eval I: Assessment Summary Airway patent Yes 07/15/24 10:50 STUDENT SUPPORT [email or web address] Spontaneous unlabored Yes 07/15/24 10:50 STUDENT SUPPORT ADVISOR.[email or web address] respirations Mental status Awake,Calm 07/15/24 10:50 STUDENT SUPPORT [email or web address].[email or web address] nausea No 07/15/24 10:50 STUDENT SUPPORT ADVISOR.[email or web address] Vomiting No 07/15/24 10:50 STUDENT SUPPORT ADVISOR.[email or web address] Anesthesia Postop Eval I: Fluid Summary Crystalloid volume administer 1,000 07/15/24 10:50 STUDENT SUPPORT ADVISOR.[email or web address] (ml) Colloids volume administered ( ml) Blood Product volume administered (ml) Total IV fluid infused 1,000 07/15/24 10:50 STUDENT SUPPORT ADVISOR.[email or web address] Anesthesia Postop Eval I: Summary Notes Anesthesia Complication No 07/15/24 10:50 STUDENT SUPPORT ADVISOR.[email or web address] Anesthesia Complication Comment: Post-operative progress note Anesthesia: Postop Eval II Evaluation Mental status: Awake and Calm Pain Level: 1 nausea: No Vomiting: No Complications Anesthesia Complication: No
[2024-07-15 16:57] LABS: Bedside Glucose 271 mg/dL (74-106)
[2024-07-15] MEDS: Albuterol 2.5 MG/3 ML VIAL.NEB. INHALATION (19:03)
[2024-07-15] MEDS: Budesonide Respules 0.5 MG/2 ML AMPUL.NEB. INHALATION (19:04)
[2024-07-15] MEDS: Atorvastatin Calcium 80 MG Tablet PO (20:50)
[2024-07-15 21:41] LABS: Bedside Glucose 264 mg/dL (74-106)
[2024-07-16] VITALS (25 sets, daily range): BP systolic 118–174; BP diastolic 67–93; PULSE 70–74; RESP 16–22; TEMP 36.7–36.9; O2SAT 89–97; BMI 30.8
[2024-07-16] MEDS: oxyCODONE 5 MG Tablet PO ×2 (02:18→06:32)
[2024-07-16] MEDS: Acetaminophen 500 MG Tablet 1000 MG PO ×3 (06:32→21:40)
[2024-07-16] MEDS: Ipratropium/Albuterol Sulfate 3 ML AMPUL.NEB INHALATION ×4 (06:52→20:03)
[2024-07-16] MEDS: Budesonide Respules 0.5 MG/2 ML AMPUL.NEB. INHALATION (06:52)
[2024-07-16] MEDS: Enoxaparin 40 MG/0.4 ML Syringe SC (08:02)
[2024-07-16] MEDS: amLODIPine 5 MG Tablet PO (08:02)
[2024-07-16] MEDS: Ramipril 10 MG Capsule PO ×2 (08:02→22:26)
[2024-07-16] MEDS: metFORMIN HCl 500 MG Tablet PO ×2 (08:02→17:08)
[2024-07-16] MEDS: Isosorbide Mononitrate 30 MG Tablet PO ×2 (08:02→22:26)
[2024-07-16] MEDS: Montelukast 10 MG Tablet PO (08:02)
[2024-07-16 08:26] LABS: Bedside Glucose 138 mg/dL (74-106)
[2024-07-16 09:05] LABS: Anion Gap 6 (5-15); BUN 27 mg/dL (7-18); BUN/Creat Ratio 19.1 RATIO (10-20); Calcium,Total 8.4 mg/dL (8.5-10.1); Chloride 106 mmol/L (98-107); Creatinine, Serum 1.41 mg/dL (0.70-1.30); EST Glomerular Filtration Rate 51 mL/min (>60); Est Glom Filt Rate - Afr Amer 62 mL/min (>60); Estimated Creatinine Clearance 43.66 ml/min; Glucose 183 mg/dL (74-106); Potassium 4.2 mmol/L (3.5-5.1); Sodium Level 137 mmol/L (136-145)
--- NOTE | 2024-07-16 09:35 | RAD_ITS ---
HISTORY: Hypoxemia. TECHNIQUE: XR Chest 1 View. COMPARISON: CT 03/15/2024. FINDINGS: CARDIOMEDIASTINAL BORDERS: Cardiac silhouette within normal limits in size with pacemaker defibrillator again seen. Mediastinal contour unchanged with calcification of the aortic knob and midline sternotomy. LUNGS: Low lung volumes with mild linear bibasilar opacities. PLEURA: No pleural effusion or pneumothorax seen. OSSEOUS STRUCTURES: Degenerative change. RAD/Chest 1 View (Portable) IMPRESSION: Mild bibasilar atelectasis. Electronically Signed: Consuelo Rodriguez MD at 10:10 EST ,
--- NOTE | 2024-07-16 10:00 | CON.PCM.CC_ITS ---
Assessment & Plan Assessment/Plan (1) Hypoxemia: PLAN: Plan RECOMMENDATIONS: 1. Wean supplemental oxygen to maintain saturations at or above 90%. 2. Transition to scheduled DuoNebs every 4 hours while awake and continue twice daily budesonide. 3. Continue as needed albuterol. 4. Obtain chest x-ray. 5. Start scheduled IV steroids as ordered. 6. Check BNP, procalcitonin and respiratory viral panel. IMPRESSIONS: 1. Acute hypoxemic respiratory failure Unclear precipitating etiology. The patient was admitted and underwent an uncomplicated left carotid endarterectomy yesterday. Since that time, he has been requiring increasing amounts of supplemental O2. The patient is currently followed in the pulmonary medicine clinic due to a history of COPD and nocturnal hypoxemia, requiring 2 L/min at his baseline. For now, we will begin by obtaining a plain film chest x-ray. The patient's bronchodilator therapy has been transition to scheduled DuoNebs every 4 hours along with twice daily budesonide. In addition, given the wheezing noted on examination, we will start IV Solu-Medrol. I am going to check a BNP, procalcitonin and respiratory viral panel. Given his history of heart failure with preserved ejection fraction, the patient may require a dose of Lasix, depending on his clinical course. PE seems less likely, given that the patient was being maintained on Eliquis as an outpatient. 2. Carotid stenosis status post carotid endarterectomy Continue routine postoperative care per vascular surgery recommendations. 3. History of coronary artery disease/heart failure with preserved ejection fraction/obstructive sleep apnea/hypertension Complicates care, management, recovery and prognosis. Continue medications as indicated. This note was generated with [employer] dictation software. It may contain incorrect words, spelling, and punctuation that were not noted in checking the note before signing. HPI Consult Data Date of Consult: 07/16/24 HPI Narrative Reason for Consultation: Hypoxemia HPI Narrative: The patient is an 78-year-old male, well-known to me from the pulmonary medicine clinic, who presented to the hospital on July 15 to undergo an elective carotid endarterectomy secondary to a history of left carotid stenosis. The procedure was ultimately completed on July 15 and was uncomplicated in nature. The patient has a known history of COPD, which has been stable with time on Symbicort and as needed albuterol. In addition, he has a known history of obstructive sleep apnea, for which he is noncompliant with nocturnal PAP therapy, but utilizes nocturnal supplemental oxygen at 2 L/min. He was last seen in the pulmonary medicine clinic in May 2024. His last exertional walking test demonstrated no need for supplemental oxygen. In addition to the aforementioned, the patient's medical history is significant for coronary artery disease status post CABG, paroxysmal atrial flutter, hypertension and hyperlipidemia. It appears that during the pathology manager of July 15, the patient was initially documented to be saturating in the mid 90s on room air. Postprocedure, the patient had an oxygen requirement, that did not appear to be present prior to the procedure. This morning, he appears comfortable sitting in his bedside recliner, but is requiring 10 L/min of supplemental oxygen to maintain appropriate saturations. He does not feel overtly short of breath, however. It should be noted that the patient has a history of stage II diastolic heart failure based upon echocardiogram from December 2023. [facility] Medical History Wears glasses Wears dentures Cancer Arthritis Prostate disease High cholesterol Back pain Blackout Syncope Dietary restriction History of ulceration Heartburn CPAP (continuous positive airway pressure) dependence Asthma Shortness of breath on exertion History of pain when walking History of edema History of stress test History of echocardiogram Cardiology follow-up encounter Injury of head and neck Diabetes Former smoker On home oxygen therapy ICD (implantable cardioverter-defibrillator) in place Pacemaker Congestive heart failure (CHF) Myocardial infarct Coronary artery disease Hypertension Stroke/cerebrovascular accident Near syncope NSVT (nonsustained ventricular tachycardia) Atrial flutter Femoral artery aneurysm, right Hyperlipidemia, unspecified Essential (primary) hypertension T-cell lymphoma Atherosclerotic heart disease of [place] coronary artery without angina pectoris COPD (chronic obstructive pulmonary disease) Carotid artery disease Influenza B Shortness of breath Nicotine dependence in remission Obesity Allergic rhinitis Ischemic cardiomyopathy Peripheral vascular disease CAD (coronary artery disease) Home Medications ?Medication ?Instructions ?Recorded ?Last Taken ?Type ramipril 10 mg capsule 10 mg PO BID blood pressure 12/25/13 07/14/24 History fluticasone propionate 50 50 mcg intranasal QDAY PRN 06/25/17 07/14/24 History mcg/actuation nasal Congestion spray,suspension (Flonase Allergy Relief) atorvastatin 80 mg tablet 80 mg PO QHS cholesterol 08/14/17 07/14/24 History ipratropium 0.5 mg-albuterol 3 mg 3 ml inhalation Q4HWA.RT PRN Sob 09/03/18 05/06/20 History (2.5 mg base)/3 mL nebulization &/Or Wheezing soln isosorbide mononitrate 30 mg 30 mg PO BID blood pressure 10/28/19 07/14/24 History tablet,extended release 24 hr montelukast 10 mg tablet 10 mg PO DAILY allergy 02/17/20 07/14/24 History metformin 500 mg tablet 500 mg PO BID blood glucose 06/28/20 07/14/24 History acetaminophen 500 mg tablet 1,000 mg (2 x 500 mg) PO Q8H PRN 04/26/23 02/14/21 Rx (Tylenol Extra Strength) PRN Pain #30 tabs budesonide-formoterol HFA 160 2 puff inhalation Q12H ASTHMA #3 01/18/24 Unknown Rx mcg-4.5 mcg/actuation aerosol device inhaler (Symbicort) carvedilol 12.5 mg tablet 12.5 mg PO BID HEART #180 tabs 01/18/24 07/14/24 Rx nitroglycerin 0.4 mg sublingual 0.4 mg sublingual Q5M PRN Chest 03/20/24 Unknown Rx tablet Pain #25 tabs apixaban 5 mg tablet (Eliquis) 5 mg PO BID BLOOD THINNER #180 tabs 04/07/24 07/11/24 Rx albuterol sulfate 2.5 mg/3 mL 2.5 mg inhalation Q4H PRN PRN SOB 07/01/24 Unknown History (0.083 %) solution for nebulization amlodipine 5 mg tablet 5 mg PO DAILY BP 07/01/24 07/14/24 History guaifenesin 1,200 mg tablet, 1,200 mg PO Q12H PRN PRN congestion 07/01/24 Unknown History extended release 12 hr Allergy/AdvReac Type Severity Reaction Status Date / Time ciprofloxacin (From Cipro) Allergy Swelling Verified 07/15/24 06:10 ciprofloxacin HCl (From Allergy hand Verified 07/15/24 06:10 Cipro) Swelling Sulfa (Sulfonamide Allergy Unknown Verified 07/15/24 06:10 Antibiotics) Family History Father Heart disease Cancer Prostate Brother Cancer prostate cancer Surgical History Hx of CABG History of coronary artery stent placement History of left knee replacement h/o left TKA History of tonsillectomy Presence of biventricular implantable cardioverter-defibrillator (ICD) (04/22/12) Presence of stent in coronary artery Aortocoronary bypass status (~05/17/12) History of permanent cardiac pacemaker placement Hx of CABG Presence of other cardiac implants and grafts Social History household members: none Smoking Status: Former smoker pack-years: 75 how long ago did patient quit smokin years ago second hand exposure: No alcohol intake: current alcohol intake frequency: holidays/special occasions only Alcohol type: beer substance use type: does not use caffeine: Yes Type: carbonated beverages Number of servings: 1 ROS ROS Narrative 10 systems were reviewed with pertinent positives as noted in the HPI above. Physical Exam Const alert and no apparent distress Constitutional Narrative: Sitting in bedside recliner. Obese. General Appearance: cooperative HEENT normocephalic, head/scalp atraumatic and moist oral mucous membranes Eyes PERRL, EOMs intact bilaterally and conjunctivae normal Neck supple General: trachea midline Chest inspection of chest normal Resp normal respiratory effort Auscultation: rales right lower, wheezes expiratory wheezes and upper bilaterally and diminished lung sounds Cardio regular rate and regular rhythm GI normal to inspection, nondistended, normoactive bowel sounds Extremity General Extremity: edema bilateral lower extremity; Negative for clubbing Skin no rashes or lesions noted Neuro CN's II-XII intact bilaterally, moves all extremities and no focal motor deficits Psych cooperative and affect normal Lab / Micro Data 07/16/24 08:40 07/16/24 08:40 Labs: Laboratory Results - last 24 hr 07/15/24 12:57: POC Glucose 213 H 07/15/24 16:10: POC Glucose 271 H 07/15/24 21:16: POC Glucose 264 H 07/16/24 08:03: POC Glucose 138 H 07/16/24 08:40: Sodium 137, Potassium 4.2, Chloride 106, Carbon Dioxide 26.0, Anion Gap 6, BUN 27 H, Creatinine 1.41 H, Estim Creat Clear Calc 43.66, Est GFR (MDRD) Af Amer 62, Est GFR (MDRD) Non-Af 51 L, BUN/Creatinine Ratio 19.1, G lucose 183 H, Calcium 8.4 L Charges/Coding Visit Charges Inpatient E&M: 98025 Init Hosp L3
[2024-07-16 10:12] LABS: Absolute Lymphocyte Count 0.72 X10^3/uL (0.83-4.51); Absolute Neutrophil Count 14.9 X10^3/uL (2.0-7.7); Basophil# 0.08 X10^3/uL; Basophil% 0.5 % (0-1); Eosinophil# 0.01 X10^3/uL; Eosinophils% 0.1 % (0-5); Hematocrit 39.2 % (40-54); Hemoglobin 13.1 g/dL (13.0-16.5); Lymphocyte # 0.72 X10^3/ul (0.83-4.51); Lymphocyte % 4.2 % (19-41); Mean Corp Hgb Conc 33.4 g/dL (32-36); Mean Corpuscular Hgb 30.4 pg (27.0-32.0); Monocyte# 1.17 X10^3/uL; Monocyte% 6.9 % (0-10); NRBC Flagged by Analyzer 0 % (0-5); Neutrophil # 14.86 X10^3/uL (2.7-7.7); Platelet Count 168 K/mm3 (150-450); RBC Distribution Width CV 14.6 % (11.6-14.6); RBC Distribution Width SD 48.7 fl (35.1-43.9); Red Blood Count 4.31 M/mm3 (4.6-6.2); White Blood Count 17.1 K/mm3 (4.4-11.0)
[2024-07-16] MEDS: Carvedilol 12.5 MG Tablet PO ×2 (10:12→21:41)
--- NOTE | 2024-07-16 10:29 | CASEMGMT ---
SALVADOR MENA Assessment Face to Face with patient for initial transition planning/care coordination assessment. SALVADOR MENA introduced self and role at [facility], pt voices understanding. Pt is A&Ox4 and is resting comfortably in the chair and is calm. Care providers, pharmacy, and demographics verified. Admitting dx: Left Carotid Endarterectomy LACE Strata: 2 PCP: Fito Velez Specialists: NELLI, [facility] Preferred Pharmacy: [facility] [place] Insurance: [facility] A/B, AARP Prescription Benefit: Yes LNOK: Klaudia Bagley (Daughter), Thang Faith (Son), Sharri Olmos (Friend/SO) Living Arrangements: Pt lives alone in a ground-level apartment with 2 steps to enter with handrails. Pt states that his SO is planning on staying with the pt after DC. ADLs/IADLs: Reports ind Transportation: Self, SO, Family DME: Home oxygen through [employer]. [employer] states that the pt current Rx is for 1LPM VIA NC CON, 3LPM W/ EXERTION . Pt states that he has a concentrator, portable tank, nebulizer,and pulse oximeter. Pt reports that his SO can bring in a portable tank at the time of DC, if needed. Pt also has access to a FWW, BP Machine, Cane, and grab bars. HHC/SNF: Denies history or needs Pt?s goal: Return home Plan: Home, follow for increased oxygen needs. Pt takes Eliquis @ home already. Pt states that he feels safe returning home with his SO at time of DC and denies the need for any additional therapy. However, there is no 6-Click score and PT is pending. CM to follow. Pt denies further questions or concerns at this time. David Lugo RN, CM
[2024-07-16 10:48] LABS: Procalcitonin 0.17 ng/mL (0.00-0.09)
[2024-07-16 11:16] LABS: BNP,B-Type NATRIURETIC PEPTIDE 247.2 pg/mL (0-100)
--- NOTE | 2024-07-16 11:50 | PN.SURG_ITS ---
Subjective Subjective I saw patient this morning, he was resting comfortably in the bedside chair. He was on 10 lpm O2 via NC. He denied any subjective dyspnea. He reports only his baseline cough, not worsening. He denies any CP. He has expected discomfort at the L neck incision site, states oral pain medications are managing this well. He denies any vision changes, subjective weakness or sensory deficits, difficulty chewing/swallowing, hoarseness. He has been hypertensive, required PRN labetalol this morning, due to restart his home antihypertensive regimen this morning. He did receive aerosol treatment this morning, he states he felt no different after this. He has remained neurologically stable. Typical serosanguineous output from his TARAS drain. CBC/BMP pending. He does have a history of COPD, BHARAT, and CHF. He is not typically on a diuretic, reports he has taken a few days at a time for CHF exacerbations but none recently. He does have home O2, he states he only uses it at night and uses 2 lpm, does not seem that he uses CPAP. He does follow with [facility]/Dr. Slaughter on an outpatient basis. Objective Data Objective Data Vital Signs: Vital Signs Temp Pulse Resp BP Pulse Ox O2 Del Method O2 Flow Rate 98.4 F 70 18 127/86 H 92 High Flow 10 07/16/24 04:00 07/16/24 06:59 07/16/24 06:52 07/16/24 04:00 07/16/24 06:52 07/16/24 08:00 07/16/24 08:00 Oxygen Flow Rate (L/min) 10 Oxygen Delivery Method High Flow Weight: 196 lb 3.382 oz Body Mass Index (BMI) 30.8 Intake & Output: Intake and Output for Last 24 Hours 07/14/24 07/15/24 07/16/24 23:59 23:59 23:59 Intake Total 192 / 192 50 / 50 Output Total 460 / 460 335 / 335 Balance -268 / -268 -285 / -285 Lab / Micro Data 07/16/24 08:40 07/16/24 08:40 Labs: Laboratory Results - last 24 hr 07/15/24 12:57: POC Glucose 213 H 07/15/24 16:10: POC Glucose 271 H 07/15/24 21:16: POC Glucose 264 H 07/16/24 08:03: POC Glucose 138 H 07/16/24 08:40: WBC 17.1 H, RBC 4.31 L, Hgb 13.1, Hct 39.2 L, MCV 91.0, MCH 30.4, MCHC 33.4, RDW Std Deviation 48.7 H, RDW Coeff of Kip 14.6, Plt Count 168, MPV 11.0, Immature Gran % (Auto) 1.300 H, Neut % (Auto) 87.0 H, Lymph % (Auto) 4.2 L, Hanson % (Auto) 6.9, Eos % (Auto) 0.1, Baso % (Auto) 0.5, Absolute Neuts (auto) 14.9 H, Absolute Lymphs (auto) 0.72 L, Nucleated RBC % 0, Sodium 137, Potassium 4.2, Chloride 106, Carbon Dioxide 26.0, Anion Gap 6, BUN 27 H, C reatinine 1.41 H, Estim Creat Clear Calc 43.66, Est GFR (MDRD) Af Amer 62, Est GFR (MDRD) Non-Af 51 L, BUN/Creatinine Ratio 19.1, Glucose 183 H, Calcium 8.4 L, B-Natriuretic Peptide 247.2 H 07/16/24 10:10: Procalcitonin 0.17 H Radiography Diagnostic Testing: Radiology Impression Chest X-Ray 07/16/24 09:35 IMPRESSION: Mild bibasilar atelectasis. Electronically Signed: Consuelo Rodriguez MD at 10:10 EST Reading Location ID and State: [facility] / [place] Tel , Service support , Physical Exam Const alert, oriented x3 and no apparent distress General Appearance: cooperative and comfortable HEENT normocephalic, external ears normal and external nose normal Eyes EOMs intact bilaterally General Eye: normal appearance of both eyes Neck Neck Narrative: L neck incision site with TARAS drain in place, minimal serosanguineous output in the bulb. Skin glue is intact, no dehiscence. No erythema, excess warmth. Mild edema, soft to palpation. Resp normal respiratory effort, no retractions and no use of accessory muscles Effort and Inspection: able to speak in complete sentences; Negative for labored, grunting, stridor or audible wheezes Cardio regular rate and regular rhythm Extremity normal to inspection and no clubbing, cyanosis or edema Neuro oriented x3, CN's II-XII intact bilaterally, moves all extremities, no focal motor deficits and no sensory deficits noted Speech: speech normal Assessment & Plan Assessment/Plan (1) Left carotid stenosis: PLAN: Plan He is POD#1 s/p L CEA. TARAS drain removed without issue. Incision site is satisfactory in appearance, no evidence of hematoma. Will restart his home antihypertensive regimen this morning and continue to monitor BP. He has had increased oxygen requirement overnight. He is encouraged to keep up with IS. Will consult pulmonary Dr. Slaughter for his evaluation and recommendations.
[2024-07-16] MEDS: Furosemide 40 MG/4 ML Vial IV (12:17)
[2024-07-16] MEDS: Insulin Lispro 100 UNIT/ML INSULN.PEN SC ×3 (12:18→21:32)
[2024-07-16 12:40] LABS: Bedside Glucose 153 mg/dL (74-106)
--- NOTE | 2024-07-16 13:14 | CHAPLAIN ---
Type of Pastoral Visit _x__ Initial Visit ___ Follow-up Visit ___ On-call Visit ___ General Patient Visit ___ Spiritual Assessment ___ Family Conference ___ Bereavement ___ Rapid Response ___ Code Blue ___ Other (describe below) Pastoral Care Referral From _x__ Patient ___ Family ___ Nurse ___ Physician ___ Brake Repair Mechanic ___ Spray Operator ___ Other (describe below) Sacrament/Intervention _x__ Active listening ___ Anointing ___ Jainism ___ Bereavement ___ Communion _x__ Harleen exploration ___ _x__ Life review _x__ Prayer ___ Reconciliation ___ Sacrament of Sick _x__ Supportive presence ___ Wedding ___ Other (describe below) Pastoral Comments Patient is sitting up in the chair and watching TV; pt declares that he is feeling fine and he is alright although he is in the hospital ICU unit; pt says that medical team says he has O2 issues but he doesn't think so; pt did just have surgery yesterday and is on O2 at this time; pt gives lots of life review and shows a sarcastic humor; pt has family members that are God fearing people but I am not confucianism; pt continues with this conversation and asks the 'big questions of why does God allow'; listening, presence, and processing with the patient; pt welcomes prayer and expresses thanks for the visit and conversation
[2024-07-16 16:38] LABS: Bedside Glucose 215 mg/dL (74-106)
[2024-07-16] MEDS: 0.9% Saline Lock 10 ML Syringe IV (17:08)
[2024-07-16] MEDS: Atorvastatin Calcium 80 MG Tablet PO (21:33)
[2024-07-16 21:56] LABS: Bedside Glucose 291 mg/dL (74-106)
[2024-07-17] VITALS (16 sets, daily range): BP systolic 109–160; BP diastolic 40–105; PULSE 70–95; RESP 15–22; TEMP 36.4–36.9; O2SAT 86–100; BMI 31.1
[2024-07-17] MEDS: 0.9% Saline Lock 10 ML Syringe IV ×2 (00:29→10:42)
[2024-07-17] MEDS: Acetaminophen 500 MG Tablet 1000 MG PO ×2 (06:17→12:36)
[2024-07-17 06:48] LABS: Absolute Lymphocyte Count 0.28 X10^3/uL (0.83-4.51); Absolute Neutrophil Count 12.7 X10^3/uL (2.0-7.7); Basophil# 0.02 X10^3/uL; Basophil% 0.1 % (0-1); Hematocrit 36.5 % (40-54); Hemoglobin 11.7 g/dL (13.0-16.5); Lymphocyte # 0.28 X10^3/ul (0.83-4.51); Lymphocyte % 2.1 % (19-41); Mean Corp Hgb Conc 32.1 g/dL (32-36); Mean Corpuscular Hgb 29.6 pg (27.0-32.0); Mean Corpuscular Volume 92.4 fL (80-94); Mean Platelet Vol. 10.8 fl (6.2-12.0); Monocyte# 0.42 X10^3/uL; Monocyte% 3.1 % (0-10); NRBC Flagged by Analyzer 0 % (0-5); Neutrophil # 12.71 X10^3/uL (2.7-7.7); Neutrophil % 93.8 % (47-70); POSITIVE DIFFERENTIAL YES; Platelet Count 155 K/mm3 (150-450); RBC Distribution Width CV 14.1 % (11.6-14.6); Red Blood Count 3.95 M/mm3 (4.6-6.2); White Blood Count 13.6 K/mm3 (4.4-11.0)
[2024-07-17] MEDS: Ipratropium/Albuterol Sulfate 3 ML AMPUL.NEB INHALATION ×2 (07:09→10:37)
[2024-07-17 07:26] LABS: Anion Gap 5 (5-15); BUN 27 mg/dL (7-18); BUN/Creat Ratio 23.7 RATIO (10-20); Calcium,Total 8.2 mg/dL (8.5-10.1); Chloride 107 mmol/L (98-107); Creatinine, Serum 1.14 mg/dL (0.70-1.30); EST Glomerular Filtration Rate 66 mL/min (>60); Est Glom Filt Rate - Afr Amer 79 mL/min (>60); Glucose 193 mg/dL (74-106); Potassium 3.8 mmol/L (3.5-5.1); Sodium Level 137 mmol/L (136-145)
[2024-07-17] MEDS: Insulin Lispro 100 UNIT/ML INSULN.PEN SC ×2 (07:41→12:32)
[2024-07-17] MEDS: metFORMIN HCl 500 MG Tablet PO (07:41)
[2024-07-17] MEDS: Isosorbide Mononitrate 30 MG Tablet PO (07:41)
[2024-07-17] MEDS: Ramipril 10 MG Capsule PO (07:41)
[2024-07-17] MEDS: Enoxaparin 40 MG/0.4 ML Syringe SC (07:45)
[2024-07-17] MEDS: Montelukast 10 MG Tablet PO (07:45)
[2024-07-17] MEDS: Carvedilol 12.5 MG Tablet PO (07:45)
[2024-07-17] MEDS: amLODIPine 5 MG Tablet PO (07:45)
--- NOTE | 2024-07-17 08:09 | PN.CC_ITS ---
Assessment & Plan Assessment/Plan (1) Hypoxemia: PLAN: Plan RECOMMENDATIONS: 1. Wean supplemental oxygen to maintain saturations at or above 90%. 2. Continue DuoNebs every 4 hours while awake and continue twice daily budesonide. 3. Continue as needed albuterol, along with corticosteroids as ordered. 4. Administer IV Lasix again today. 5. Encourage incentive spirometer use and mobilize patient as tolerated. IMPRESSIONS: 1. Acute hypoxemic respiratory failure Unclear precipitating etiology, although I do suspect that volume may have been a contributing etiology. The patient was admitted and underwent an uncomplicated left carotid endarterectomy yesterday. Since that time, he has been requiring increasing amounts of supplemental O2. The patient is currently followed in the pulmonary medicine clinic due to a history of COPD and nocturnal hypoxemia, requiring 2 L/min at his baseline. Chest x-ray was largely unrevealing. The patient has been maintained on scheduled bronchodilators and steroids. He does appear to be responding to IV diuretic therapy, which will be continued today. Plan to continue to wean supplemental oxygen to maintain saturations at or above 90%. Encourage incentive spirometer use and mobilize patient as tolerated. PE seems less likely, given that the patient was being maintained on Eliquis as an outpatient. 2. Carotid stenosis status post carotid endarterectomy Continue routine postoperative care per vascular surgery recommendations. 3. History of coronary artery disease/heart failure with preserved ejection fraction/obstructive sleep apnea/hypertension Complicates care, management, recovery and prognosis. Continue medications as indicated. This note was generated with [employer] dictation software. It may contain incorrect words, spelling, and punctuation that were not noted in checking the note before signing. Subjective Subjective The patient was seen and examined at the bedside this morning. Events from the last 24 hours have been reviewed. The patient is currently afebrile, hemodynamically stable and maintaining appropriate oxygen saturations on 4 L/min via nasal cannula. The patient is resting comfortably in the bedside recliner without any specific complaints of dyspnea. Creatinine has normalized following Lasix administration yesterday. Objective Data Objective Data The patient's most recent lab work, culture data and imaging studies have all been personally reviewed. COVID, influenza and RSV PCR's were negative. Respiratory viral panel was negative. Vital Signs: Vital Signs Temp Pulse Resp BP Pulse Ox O2 Del Method O2 Flow Rate 98.4 F 70 18 160/105 H 96 High Flow 6 07/17/24 00:00 07/17/24 07:11 07/17/24 07:11 07/17/24 07:00 07/17/24 07:11 07/17/24 07:11 07/17/24 07:11 Oxygen Flow Rate (L/min) 6 Oxygen Delivery Method High Flow Weight: 198 lb 6.656 oz Body Mass Index (BMI) 31.1 Intake & Output: Intake and Output for Last 24 Hours 07/15/24 07/16/24 07/17/24 23:59 23:59 23:59 Intake Total 192 / 192 390 / 630 360 / 360 Output Total 460 / 460 1185 / 1435 650 / 650 Balance -268 / -268 -795 / -805 -290 / -290 Lab / Micro Data Attestation: I reviewed the patient's lab results. 07/17/24 06:20 07/17/24 06:20 Labs: Laboratory Results - last 24 hr 07/16/24 08:03: POC Glucose 138 H 07/16/24 08:40: WBC 17.1 H, RBC 4.31 L, Hgb 13.1, Hct 39.2 L, MCV 91.0, MCH 30.4, MCHC 33.4, RDW Std Deviation 48.7 H, RDW Coeff of Kip 14.6, Plt Count 168, MPV 11.0, Immature Gran % (Auto) 1.300 H, Neut % (Auto) 87.0 H, Lymph % (Auto) 4.2 L, Mckean % (Auto) 6.9, Eos % (Auto) 0.1, Baso % (Auto) 0.5, Absolute Neuts (auto) 14.9 H, Absolute Lymphs (auto) 0.72 L, Nucleated RBC % 0, Sodium 137, Potassium 4.2, Chloride 106, Carbon Dioxide 26.0, Anion Gap 6, BUN 27 H, C reatinine 1.41 H, Estim Creat Clear Calc 43.66, Est GFR (MDRD) Af Amer 62, Est GFR (MDRD) Non-Af 51 L, BUN/Creatinine Ratio 19.1, Glucose 183 H, Calcium 8.4 L, B-Natriuretic Peptide 247.2 H 07/16/24 10:10: Procalcitonin 0.17 H 07/16/24 12:17: POC Glucose 153 H 07/16/24 16:21: POC Glucose 215 H 07/16/24 21:31: POC Glucose 291 H 07/17/24 06:20: WBC 13.6 H, RBC 3.95 L, Hgb 11.7 L, Hct 36.5 L, MCV 92.4, MCH 29.6, MCHC 32.1, RDW Std Deviation 48.0 H, RDW Coeff of Kip 14.1, Plt Count 155, MPV 10.8, Immature Gran % (Auto) 0.900, Neut % (Auto) 93.8 H, Lymph % (Auto) 2.1 L, Mckean % (Auto) 3.1, Eos % (Auto) 0.0, Baso % (Auto) 0.1, Absolute Neuts (auto) 12.7 H, Absolute Lymphs (auto) 0.28 L, Nucleated RBC % 0, Sodium 137, Potassium 3.8, Chloride 107, Carbon Dioxide 25.0, Anion Gap 5, BUN 27 H, Creatinine 1.14, Estim Creat Clear Calc 54.30, Est GFR (MDRD) Af Amer 79, Est GFR (MDRD) Non-Af 66, BUN/Creatinine Ratio 23.7 H, Glucose 193 H, Calcium 8.2 L Micro: Microbiology 07/16/24 11:45 Mucosa - Nasopharyngeal Respiratory Panel (PCR) - Final 07/16/24 11:45 Mucosa - Nasopharyngeal SARS-CoV-2, Influenza & RSV (PCR) - Final Radiography Diagnostic Testing: Radiology Impression Chest X-Ray 07/16/24 09:35 IMPRESSION: Mild bibasilar atelectasis. Electronically Signed: Consuelo Rodriguez MD at 10:10 EST Reading Location ID and State: [facility] / [place] Tel , Service support , Physical Exam Const alert and no apparent distress Constitutional Narrative: Sitting in bedside recliner. Obese. General Appearance: cooperative HEENT normocephalic, head/scalp atraumatic and moist oral mucous membranes Eyes PERRL, EOMs intact bilaterally and conjunctivae normal Neck supple General: trachea midline Chest inspection of chest normal Resp normal respiratory effort and no use of accessory muscles Auscultation: rales right lower and diminished lung sounds; Negative for rhonchi or wheezes Cardio regular rate and regular rhythm GI normal to inspection, nondistended, normoactive bowel sounds Extremity General Extremity: edema bilateral lower extremity; Negative for clubbing Skin no rashes or lesions noted Neuro CN's II-XII intact bilaterally, moves all extremities and no focal motor deficits Psych cooperative and affect normal Charges/Coding Visit Charges Inpatient E&M: 25383 Subs Hosp L2
[2024-07-17 08:17] LABS: Bedside Glucose 172 mg/dL (74-106)
[2024-07-17] MEDS: Furosemide 40 MG/4 ML Vial IV (10:42)
[2024-07-17 11:54] LABS: Bedside Glucose 253 mg/dL (74-106)
--- NOTE | 2024-07-17 12:07 | CASEMGMT ---
Addendum entered by Camila Cha 07/17/24 12:59: Dr Slaughter made aware of below info re: Home O2 orders from 03/01 and aware pt has not been wearing it except @ HS. Also made aware home O2 amb testing will be completed @ dc from [facility], starting on RA. Dr Slaughter asks for pt to have f/u appt in his office in 1-2 weeks. Call placed to [facility]. Appt scheduled for 07/22/24 @ 10:45 AM, with Dr Slaughter, and this was added to pt's discharge plan. Pt made aware. Original Note: RN CM NOTE: RN CM to room. Introduced self and role. Pt sitting up in chair in room. O2 in place via N/C. Per pt, he states he was on O2 during the day in the past @ home, but has not used it during the day for a couple of years, stating he only wears it @ HS @ 2 l/m. Per Harjinder @ [facility], pt's last Rx for O2 was from Angella Garcia NP, 05/19/24 and it was an annual O2 Rx. Per XAVI Garcia, note on 05/20/24, office visit note, pt only wears it @ 2 L/M @ HS. Call placed to [facility] nurse @ Dr Slaughter/Angella Garcia's office. Per [facility], they received a note from Dr Velez in Feb, 2024 that pt was @ @ [facility] and dc'd home on 1 L/M @ rest and 3 L/M w/exertion, but pt had stated to Dr Velez that he was not told about this @ dc from and therefore was not wearing it. Home O2 amb testing to be completed w/pt, starting on RA prior to discharge from [facility], to determine what O2 liter flow he is requiring. RN, aware. Pt does verify that his SO can bring portable O2 tank to [facility] for him to go home on @ discharge, if needed. His SO will be taking him home and will stay w/pt as long as needed. Pt verifies he was taking Eliquis @ home prior to surgery and has sufficient amt of this medication as well as his other medications he was taking @ home. He declines wanting/needing HHC or OP therapy @ discharge. Per RN, pt has been getting up/OOB today w/SBA. PT/OT evals pending. CM to follow. Elham BSN RN CM
--- NOTE | 2024-07-17 12:32 | DS.PCM_ITS ---
Providers Date of Admission: 07/15/24 Primary Care Physician: Dr. Fito Velez MD Consultations 07/16/24 09:00 Consult: Hematology Nurse Educator / Pulmonary Medicine Routine Consulting Provider: Intensivists/Pulmonary Med Reason for Consult: increased O2 requirement EMERGENT Consult: No MD Notified: Yes Date Notified: 07/16/24 Time Notified: 09:00 Method of Notification: Verbal Reason For Visit: Left Carotid Endarterectomy Diagnosis Discharge Diagnosis (1) Hypoxemia: Status: Acute Code(s): R09.02 - Hypoxemia Medications at Discharge Home Medications ramipril 10 mg capsule 10 mg PO BID blood pressure 12/25/13 fluticasone propionate 50 mcg/actuation nasal spray,suspension (Flonase Allergy Relief) 50 mcg intranasal QDAY PRN Congestion 06/25/17 atorvastatin 80 mg tablet 80 mg PO QHS cholesterol 08/14/17 ipratropium 0.5 mg-albuterol 3 mg (2.5 mg base)/3 mL nebulization soln 3 ml inhalation Q4HWA.RT PRN Sob &/Or Wheezing 09/03/18 isosorbide mononitrate 30 mg tablet,extended release 24 hr 30 mg PO BID blood pressure 10/28/19 montelukast 10 mg tablet 10 mg PO DAILY allergy 02/17/20 metformin 500 mg tablet 500 mg PO BID blood glucose 06/28/20 acetaminophen 500 mg tablet (Tylenol Extra Strength) 1,000 mg (2 x 500 mg) PO Q8H PRN PRN Pain #30 tabs 04/26/23 budesonide-formoterol HFA 160 mcg-4.5 mcg/actuation aerosol inhaler (Symbicort) 2 puff inhalation Q12H ASTHMA #3 device 01/18/24 carvedilol 12.5 mg tablet 12.5 mg PO BID HEART #180 tabs 01/18/24 nitroglycerin 0.4 mg sublingual tablet 0.4 mg sublingual Q5M PRN Chest Pain #25 tabs 03/20/24 apixaban 5 mg tablet (Eliquis) 5 mg PO BID BLOOD THINNER #180 tabs 04/07/24 albuterol sulfate 2.5 mg/3 mL (0.083 %) solution for nebulization 2.5 mg inhalation Q4H PRN PRN SOB 07/01/24 amlodipine 5 mg tablet 5 mg PO DAILY BP 12/24/24 guaifenesin 1,200 mg tablet, extended release 12 hr 1,200 mg PO Q12H PRN PRN congestion 07/01/24 oxycodone 5 mg tablet 5 mg PO Q8H PRN PRN Pain Score 4-10 3 days #9 tabs 07/17/24 Hospital Course Summary of Care Provided Hospital Course: Mr. Francisco Faith is an 78 y/o male who underwent L CEA 07/15/24. The procedure itself was without complication. Postoperatively, he was routinely admitted to the ICU for ongoing hemodynamic and neurologic monitoring. He was hypertensive requiring PRN labetalol overnight but this improved once his home antihypertensive regimen was restarted and he otherwise remained hemodynamically stable. He remained neurologically stable throughout. TARAS drain was removed POD#1 without issue. Overnight after surgery he had increasing O2 requirements up to needing 10 lpm via NC although he was not subjectively SOB and had no other associated symptoms. He does have COPD and at home he typically utilized 2 lpm at night. This requirement persisted through the morning so pulmonary was consulted. He had a CXR without significant acute findings. They initiated steroids and lasix. His O2 requirement then decreased back to his home baseline over the next 24 hours. Today at time of discharge he is requiring 2 lpm with activity and none at rest. He does already have home O2 as noted. He has scheduled outpatient follow-up. He is discharged in medically stable condition with planned outpatient follow-up in our office and with pulmonary. Physical Exam Const oriented x3 and no apparent distress Resp normal respiratory effort Resp Narrative: on 2 lpm O2 at rest Cardio regular rate and regular rhythm Skin no rashes or lesions noted Wounds: wounds noted Wound Narrative: L neck incision site with skin glue intact. Mild edema, soft to palpation. No dehiscence, erythema, drainage. No evidence of hematoma. Dressing C/D/I over the TARAS drain site, very minimal dried drainage visible. Weight / BMI Weight Weight: 198 lb 6.656 oz Body Mass Index (BMI) 31.1 ABG / Lab / Microbiology Data 07/17/24 06:20 07/17/24 06:20 Laboratory: Laboratory Results - last 24 hr 07/16/24 21:31: POC Glucose 291 H 07/17/24 06:20: WBC 13.6 H, RBC 3.95 L, Hgb 11.7 L, Hct 36.5 L, MCV 92.4, MCH 29.6, MCHC 32.1, RDW Std Deviation 48.0 H, RDW Coeff of Kip 14.1, Plt Count 155, MPV 10.8, Immature Gran % (Auto) 0.900, Neut % (Auto) 93.8 H, Lymph % (Auto) 2.1 L, [place] % (Auto) 3.1, Eos % (Auto) 0.0, Baso % (Auto) 0.1, Absolute Neuts (auto) 12.7 H, Absolute Lymphs (auto) 0.28 L, Nucleated RBC % 0, Sodium 137, Potassium 3.8, Chloride 107, Carbon Dioxide 25.0, Anion Gap 5, BUN 27 H, Creatinine 1.14, Estim Creat Clear Calc 54.30, Est GFR (MDRD) Af Amer 79, Est GFR (MDRD) Non-Af 66, BUN/Creatinine Ratio 23.7 H, Glucose 193 H, Calcium 8.2 L 07/17/24 07:34: POC Glucose 172 H 07/17/24 11:36: POC Glucose 253 H Microbiology: Microbiology 07/16/24 11:45 Mucosa - Nasopharyngeal Respiratory Panel (PCR) - Final 07/16/24 11:45 Mucosa - Nasopharyngeal SARS-CoV-2, Influenza & RSV (PCR) - Final D/C Instructions Discharge Diet: No restrictions May shower in (days): 1 Weight Bearing Status: Weight bearing as tolerated Lifting Restricted to (Lbs): 20 Lifting Restrictions: Do not lift greater than 20 pounds for 3 weeks Call your doctor if your incision/area has: Sudden Increased Bleeding, Increased Pain/ Swelling and Foul Smelling Discharge Call your doctor if you observe: Fever of 101 or Higher and Uncontrolled pain Remove Dressing in: 1 day DC O2, CPAP, BIPAP Needs RN Home O2 Qualification: Home O2 Qualification: Is the patient on home oxygen No 07/17/24 12:55 Home O2 Qualification: AT REST 1- Pulse Ox at rest 92 07/17/24 12:55 Home O2 Qualification: WITH AMBULATION 1- Pulse Ox with ambulation 86 07/17/24 12:55 1- Oxygen Flow Rate with 0 07/17/24 12:55 ambulation 2- Pulse Ox with ambulation 93 07/17/24 12:55 2- Oxygen Flow Rate with 2 07/17/24 12:55 ambulation Home O2 Discharge instructions: Yes Type of respiratory needs?: Oxygen Oxygen frequency: With Ambulation Oxygen liters per minute during Ambulation: 2 DC home with Oxygen: Yes Home O2 MD Review: I have reviewed the oxygen testing, and the patient qualifies for home oxygen equipment and portability. The patient is mobile in the home and the community. Additional Instructions: You have a small bandage over the site from which the surgical drain was removed. You may remove this bandage tomorrow. As long as there is no residual drainage, you may leave this open to air. If you do notice some continued drainage, you may re-cover with a Band-Aid. Your incision site is covered with skin glue which will continue to protect it. The skin glue will peel/flake off on its own over the next few weeks. Please do not pick at it. You may shower tomorrow. It is okay for soap and water to rinse over the incision site, pat to dry. Do not submerge the incision site in water such as to take a bath or go swimming etc. for 3 weeks. Do not lift greater than 20 pounds for 3 weeks. Otherwise, please continue with activity as tolerated. Do not drive until you can turn your head well enough to safely check your blind spots. I have prescribed a prescription pain medication oxycodone 5 mg tablets to be taken by mouth every 8 hours as needed for pain. You may take this with Tylenol. Do not take in addition to any other prescription pain medications. Your follow-up appointment in the office is scheduled for 07/30/2023 at 10:30 AM. If you need to change this appointment or have any other questions/concerns then please contact the office at [phone] to make your appointment. Please Follow Up With: Hilda Vee PA When: 07/30/23 at 10:30 AM Meaningful Use Info Meaningful Use Meaningful Use Diagnoses (Choose all that apply): None applicable Ischemic Stroke Statin Dosing Therapy Reference: STATIN DOSE THERAPY REFERENCE: * Patients > 75 years receive moderate or high dose statin therapy. * Patients 75 years or YOUNGER should receive HIGH intensity statin dose unless contraindicated. You will be required to document reason for non-treatment if statin daily dose does not meet guidelines. HIGH DOSE STATIN THERAPY DAILY Atorvastatin > than or = to 40 mg Rosuvastatin > than or = to 20 mg Amlodipine + Atorvastatin > than or = to 2.5/40 mg Ezetimibe + Simvastatin 10/80 mg Simvastatin 80mg Discharge Plan Admission Admit Date/Time: 07/15/24 10:13 Attending Provider: Kj To Primary Care Provider: Fito Velez Consulting Providers: Harjinder Tang; Jose Navas; Bandar Gomez; Mark Cunningham; Kiko Slaughter; Daniel De La Fuente; Henri Bernal; Camilo Jimenez; Maddy Jorgensen; Antoine Farooq; Rene Zamarripa; Rian Ram; Yvonne Trent; Deborah Brownlee; Yossi Smith; Howie Rubin; Anmol Foley; Jayant Hurtado; Tawana Anguiano; Kole Galvan; Tod Milligan; Gm Preciado; Joon Lucas Discharge Orders/Prescriptions Prescriptions: New oxycodone 5 mg Tablet 5 mg PO Q8H PRN PRN (Reason: Pain Score 4-10) 3 Days Qty: 9 0RF Continued fluticasone propionate [Flonase Allergy Relief] 50 mcg/actuation spray,suspension 50 mcg INTRANASAL QDAY PRN (Reason: Congestion) ipratropium-albuterol 0.5 mg-3 mg(2.5 mg base)/3 mL solution for nebulization 3 ml INHALATION Q4HWA.RT PRN (Reason: Sob &/Or Wheezing) isosorbide mononitrate 30 mg tablet extended release 24 hr 30 mg PO BID montelukast 10 mg tablet 10 mg PO DAILY metformin 500 mg tablet 500 mg PO BID nitroglycerin 0.4 mg tablet, sublingual 0.4 mg SUBLINGUAL Q5M PRN (Reason: Chest Pain) Qty: 25 3RF ramipril 10 MG capsule 10 mg PO BID atorvastatin 80 MG tablet 80 mg PO QHS acetaminophen [Tylenol Extra Strength] 500 mg Tablet 1,000 mg PO Q8H PRN PRN (Reason: Pain) Qty: 30 0RF amlodipine 5 mg tablet 5 mg PO DAILY albuterol sulfate 2.5 mg /3 mL (0.083 %) solution for nebulization 2.5 mg inhalation Q4H PRN PRN (Reason: SOB) Rx Instructions: Use q4 hours and PRN for wheezing guaifenesin 1,200 mg tablet extended release 12hr 1,200 mg PO Q12H PRN PRN (Reason: congestion) carvedilol 12.5 mg tablet 12.5 mg PO BID Qty: 180 3RF budesonide-formoterol [Symbicort] 160-4.5 mcg/actuation HFA aerosol inhaler 2 puff INHALATION Q12H Qty: 3 3RF Eliquis 5 mg tablet 5 mg PO BID Qty: 180 3RF Referrals / Follow Up: Kiko Slaughter DO [Med Staff - Active Staff] - 07/22/24 10:45 am Fito Velez MD [Primary Care Provider] - Hilda Vee PA [Med Staff - Adv Practice Prof] - 07/30/24 10:30 am Disposition Disposition (needs filled in before D/C Order can be placed): Home, Self Care
== END 2024-07-17 14:14 | disposition home or self-care (01) | DRG 37 ==
PROVIDERS: Internal Medicine Critical Care Medicine; Physician Assistant; Admitting Provider Surgery Trauma Surgery; PCP Family Medicine; Referring Provider Surgery Trauma Surgery; Visit Provider Surgery Trauma Surgery
PROC: 03CN0ZZ Extirpation of Matter from Left External Carotid Artery, Open Approach (ICD-10-PCS; CPT 35301; principal; 2024-07-15 07:10)
DX: I65.22 Occlusion and stenosis of left carotid artery (principal); J96.01 Acute respiratory failure with hypoxia; I50.32 Chronic diastolic (congestive) heart failure; I11.0 Hypertensive heart disease with heart failure; J44.9 Chronic obstructive pulmonary disease, unspecified; E11.51 Type 2 diabetes mellitus with diabetic peripheral angiopathy without gangrene; I25.10 Atherosclerotic heart disease of native coronary artery without angina pectoris; E78.5 Hyperlipidemia, unspecified; I25.5 Ischemic cardiomyopathy; Z95.5 Presence of coronary angioplasty implant and graft; Z79.84 Long term (current) use of oral hypoglycemic drugs; Z86.16 Personal history of COVID-19; Z87.891 Personal history of nicotine dependence; Z79.51 Long term (current) use of inhaled steroids; Z79.01 Long term (current) use of anticoagulants; Z95.1 Presence of aortocoronary bypass graft; Z99.81 Dependence on supplemental oxygen
CPT/HCPCS: 36415; 71045; 80048; 82962; 83036; 83880; 84145; 85025; 85027; 86850; 86900; 86901; 87631; 87633; 88304; 88311; 93005; 94640; 94668; 94762; 97162; 97166; 97803; 99252; A4648; A4216; G0463; J1940; J2405

== ENCOUNTER → 2024-07-23 | Outpatient (CLI) | payer MEDICARE, OTHER, SELFPAY ==
[2024-07-23 17:18] LABS: Creatinine, Serum 1.16 mg/dL (0.70-1.30); EST Glomerular Filtration Rate 64 mL/min (>60); Est Glom Filt Rate - Afr Amer 78 mL/min (>60)
== END | disposition home or self-care (01) ==
LOC: LAB 16:10
PROVIDERS: PCP Family Medicine; Referring Provider Surgery Trauma Surgery; Visit Provider Surgery Trauma Surgery
DX: I10 Essential (primary) hypertension (principal)
CPT/HCPCS: 36415; 82565

== ENCOUNTER 2024-08-25 11:12 | Inpatient (IN) | payer MEDICARE, OTHER, SELFPAY ==
[2024-08-25] VITALS (9 sets, daily range): BP systolic 127–137; BP diastolic 71–111; PULSE 70–90; RESP 16–22; TEMP 36.5–36.6; O2SAT 90–95; BMI 32.2; BMI 30.4
--- NOTE | 2024-08-25 11:30 | RAD_ITS ---
EXAM: AP lateral views of the chest. CLINICAL HISTORY: Hypoxia. Shortness of breath. COMPARISON: None. TECHNIQUE: AP and lateral views were obtained. FINDINGS: EKG electrodes are seen. Small bilateral pleural effusions right slightly greater than left with findings suggestive of CHF. Status post CABG. Left-sided dual-chamber pacemaker is seen. Degenerative changes of the thoracic spine. RAD/Chest PA and Lateral IMPRESSION: Small bilateral pleural effusions right greater than left with CHF. Cardiomegaly. Reading Location: [id number]
[2024-08-25 11:43] LABS: Absolute Lymphocyte Count 0.68 X10^3/uL (0.83-4.51); Absolute Neutrophil Count 8.6 X10^3/uL (2.0-7.7); Basophil# 0.06 X10^3/uL; Basophil% 0.6 % (0-1); Eosinophil# 0.12 X10^3/uL; Eosinophils% 1.1 % (0-5); Hematocrit 39.7 % (40-54); Hemoglobin 12.8 g/dL (13.0-16.5); Lymphocyte # 0.68 X10^3/ul (0.83-4.51); Lymphocyte % 6.5 % (19-41); Mean Corp Hgb Conc 32.2 g/dL (32-36); Mean Corpuscular Hgb 30.3 pg (27.0-32.0); Mean Corpuscular Volume 94.1 fL (80-94); Mean Platelet Vol. 10.6 fl (6.2-12.0); Monocyte# 0.96 X10^3/uL; Monocyte% 9.2 % (0-10); NRBC Flagged by Analyzer 0 % (0-5); Neutrophil # 8.55 X10^3/uL (2.7-7.7); Neutrophil % 81.8 % (47-70); Platelet Count 180 K/mm3 (150-450); RBC Distribution Width CV 14.6 % (11.6-14.6); RBC Distribution Width SD 50.7 fl (35.1-43.9); Red Blood Count 4.22 M/mm3 (4.6-6.2); White Blood Count 10.5 K/mm3 (4.4-11.0)
[2024-08-25 12:02] LABS: Anion Gap 4 (5-15); BUN 17 mg/dL (7-18); BUN/Creat Ratio 13.8 RATIO (10-20); Calcium,Total 9.1 mg/dL (8.5-10.1); Chloride 102 mmol/L (98-107); Creatinine, Serum 1.23 mg/dL (0.70-1.30); EST Glomerular Filtration Rate 60 mL/min (>60); Est Glom Filt Rate - Afr Amer 73 mL/min (>60); Estimated Creatinine Clearance 50.46 ml/min; Glucose 161 mg/dL (74-106); Potassium 3.4 mmol/L (3.5-5.1); Sodium Level 140 mmol/L (136-145); Troponin-I HS (w/2H Reflex) 24 pg/mL (3.0-78.0)
--- NOTE | 2024-08-25 12:11 | EDS_ITS ---
HPI History of Present Illness Chief Complaint: Shortness of Breath Narrative Narrative: Patient is a 78-year-old male with past medical history of CHF, hypertension, CVA, atrial flutter on Eliquis, COPD on 4 L nasal cannula starting recently, CAD who presented to the emergency department with a chief complaint of hypoxia and unable to have his thoracentesis completed secondary to him not holding his Eliquis. According to family at bedside every single time he gets up and walks his oxygen drops to 84% on 4 L and he has been requiring more oxygen with having increased shortness of breath. Patient states that his bank one of the medications not missed any doses. Patient states that ever since a carotid endarterectomy he has had issues with having fluid on his lung and had a thoracentesis about 2 weeks ago at an outside facility. [facility] Medical History Hypoxemia Wears glasses Wears dentures Cancer Arthritis Prostate disease High cholesterol Back pain Blackout Syncope Dietary restriction History of ulceration Heartburn CPAP (continuous positive airway pressure) dependence Asthma Shortness of breath on exertion History of pain when walking History of edema History of stress test History of echocardiogram Cardiology follow-up encounter Injury of head and neck Diabetes Former smoker On home oxygen therapy ICD (implantable cardioverter-defibrillator) in place Pacemaker Congestive heart failure (CHF) Myocardial infarct Coronary artery disease Hypertension Stroke/cerebrovascular accident Near syncope NSVT (nonsustained ventricular tachycardia) Atrial flutter Femoral artery aneurysm, right Hyperlipidemia, unspecified Essential (primary) hypertension T-cell lymphoma Atherosclerotic heart disease of [place] coronary artery without angina pectoris COPD (chronic obstructive pulmonary disease) Carotid artery disease Influenza B Shortness of breath Nicotine dependence in remission Obesity Allergic rhinitis Ischemic cardiomyopathy Peripheral vascular disease CAD (coronary artery disease) Home Medications ?Medication ?Instructions ?Recorded ?Last Taken ?Type ramipril 10 mg capsule 10 mg PO BID blood pressure 12/25/13 07/14/24 History fluticasone propionate 50 50 mcg intranasal QDAY PRN 1 08/26/16 07/14/24 History mcg/actuation nasal Congestion spray,suspension (Flonase Allergy Relief) atorvastatin 80 mg tablet 80 mg PO QHS cholesterol 12/2407/14/24 History ipratropium 0.5 mg-albuterol 3 mg 3 ml inhalation Q4HW A.RT PRN Sob 09/03/18 05/06/20 History (2.5 mg base)/3 mL nebulization &/Or Wheezing soln isosorbide mononitrate 30 mg 30 mg PO BID blood pressu re 10/28/19 07/14/24 History tablet,extended release 24 hr montelukast 10 mg tablet 10 mg PO DAILY allergy 02/1607/14/24 History metformin 500 mg tablet 500 mg PO BID blood glucose 06/28/20 07/14/24 History acetaminophen 500 mg tablet 1,000 mg (2 x 500 mg) PO Q 8H PRN 04/26/23 02/14/21 Rx (Tylenol Extra Strength) PRN Pain #30 tabs budesonide-formoterol HFA 160 2 puff inhalation Q12H A STHMA #3 01/18/24 Unknown Rx mcg-4.5 mcg/actuation aerosol device inhaler (Symbicort) nitroglycerin 0.4 mg sublingual 0.4 mg sublingual Q5M PRN Chest 03/20/24 Unknown Rx tablet Pain #25 tabs apixaban 5 mg tablet (Eliquis) 5 mg PO BID BLOOD THINN ER #180 tabs 04/07/24 07/11/24 Rx albuterol sulfate 2.5 mg/3 mL 2.5 mg inhalation Q4H [place] N PRN SOB 07/01/24 Unknown History (0.083 %) solution for nebulization guaifenesin 1,200 mg tablet, 1,200 mg PO Q12H PRN PRN congestion 07/01/24 Unknown History extended release 12 hr omeprazole 40 mg capsule,delayed mg PO DAILY 08/13/24 Unknown History release amiodarone 200 mg tablet 200 mg PO QDAY 08/19/24 Unkn own History amlodipine 5 mg tablet 10 mg PO DAILY BP 08/19/24 U nknown History carvedilol 25 mg tablet 25 mg PO BID #180 tabs 08/19 Unknown Rx furosemide 40 mg tablet (Lasix) 40 mg PO BID #180 tabs 08/19/24 Unknown Rx potassium chloride 20 mEq 20 meq PO QDAY #90 tabs 08/09 08/02 Unknown Rx tablet,extended release pregabalin 50 mg capsule 50 mg PO DIRECTED 5 Unknown History Allergy/AdvReac Type Severity Reaction Status Date / Time ciprofloxacin (From Cipro) Allergy Swelling Verified 08/19/24 10:21 ciprofloxacin HCl (From Allergy hand Verified 08/19/24 10:21 Cipro) Swelling Sulfa (Sulfonamide Allergy Unknown Verified 08/19/24 10:21 Antibiotics) Family History Father Heart disease Cancer Prostate Brother Cancer prostate cancer Surgical History Hx of CABG History of coronary artery stent placement History of left knee replacement h/o left TKA History of tonsillectomy Presence of biventricular implantable cardioverter-defibrillator (ICD) (04/22/12) Presence of stent in coronary artery Aortocoronary bypass status (~05/17/12) History of permanent cardiac pacemaker placement Hx of CABG Presence of other cardiac implants and grafts Social History household members: none Smoking Status: Former smoker pack-years: 75 how long ago did patient quit smokin years ago second hand exposure: No alcohol intake: current alcohol intake frequency: holidays/special occasions only Alcohol type: beer substance use type: does not use caffeine: Yes Type: carbonated beverages Number of servings: 1 ROS ROS ED ROS Narrative Constitutional: Denies fevers, chills, headaches, lightness, dizziness Eyes: Denies change in vision double vision blurry vision Cardiovascular: Denies chest pain or palpitations Respiratory: Complains of shortness of breath as noted above Abdomen: Denies nausea vomit diarrhea : Denies any urinary symptoms Neurological: Denies numbness, weakness, tingling Musculoskeletal: Denies back pain Skin: Denies rashes or lesions EXAM Physical Exam Narrative Exam Narrative: General: Patient was lying in bed rest comfortably did not appear to be in acute distress Head: Atraumatic, normocephalic Eyes: PERRL bilaterally, EOMI bilaterally, no conjunctival injection noted Neck: Soft, supple, trachea midline Cardiovascular: Regular rate and rhythm Respiratory: Diminished breath sounds bilaterally Abdomen: Soft, nondistended, nontender to palpation Extremities: +4/5 strength noted in the bilateral lower extremities, radial pulses +2/4 in the bilateral extremities Neurological: Patient following commands knew that he was at [facility] year is 2024 Skin: Warm, dry, intact no rashes or lesions noted Const Vital Signs: 08/25/24 11:13 08/25/24 11:18 08/25/24 11:20 Temperature 98 F Temperature Source Oral Pulse Rate 70 Respiratory Rate 18 Respiratory Effort Short of Breath Blood Pressure 133/81 H Blood Pressure Mean 98 Pulse Ox 95 Oxygen Delivery Method Nasal Cannula Nasal Cannula Oxygen Flow Rate (L/min) 5 5 08/25/24 11:29 08/25/24 12:12 Temperature Temperature Source Pulse Rate 90 Respiratory Rate 22 H Respiratory Effort Blood Pressure 130/79 H Blood Pressure Mean 96 Pulse Ox 94 Oxygen Delivery Method Nasal Cannula Nasal Cannula Oxygen Flow Rate (L/min) 5 5 MDM MDM MDM Narrative Medical decision making narrative: Patient is a 78-year-old male who presented to the emerged part with a chief complaint of hypoxia, shortness of breath and unable to have his thoracentesis performed in outpatient setting secondary to his Eliquis not being held. On the differential diagnose includes but not limited to pleural effusion, ACS, pneumonia, CHF exacerbation. Once workup is obtained reviewed he will be reevaluated. Patient echocardiogram from 01/02/2024 was reviewed showed ejection fraction of 60% with grade 2 diastolic dysfunction noted Patient CBC reviewed showed no evidence leukocytosis white blood count normal at 10.5, hemoglobin 12.8, plate count was noted be 180. Patient's coagulation studies pending. Patient sodium normal 140, potassium was 3.4, creatinine was 1.23. Patient's troponin was 9024, proBNP elevated at 372. Patient's EKG reviewed showed a paced rhythm with a rate of 71 bpm no evidence of Sgarbossa criteria were met. Patient's chest x-ray reviewed by myself and by radiology showed small bilateral pleural effusions right greater than left with CHF cardiomegaly noted. Patient was given 40 mg of IV Lasix. Will discuss case with hospitalist for admission for his acute on chronic hypoxic respiratory failure in setting of CHF exacerbation. Discussed case with hospitalist Dr. Ramos who accept the patient for admission. Patient notified as well as family bedside they are agreeable this plan all question concerns answered. Lab Data Labs: Laboratory Results - last 24 hr 08/25/24 08/25/24 11:25 12:07 WBC 10.5 RBC 4.22 L Hgb 12.8 L Hct 39.7 L MCV 94.1 H MCH 30.3 MCHC 32.2 RDW Std Deviation 50.7 H RDW Coeff of Kip 14.6 Plt Count 180 MPV 10.6 Immature Gran % (Auto) 0.800 Neut % (Auto) 81.8 H Lymph % (Auto) 6.5 L [place] % (Auto) 9.2 Eos % (Auto) 1.1 Baso % (Auto) 0.6 Absolute Neuts (auto) 8.6 H Absolute Lymphs (auto) 0.68 L Nucleated RBC % 0 PT 19.4 H INR 1.6 APTT 37.7 H Sodium 140 Potassium 3.4 L Chloride 102 Carbon Dioxide 34.0 H Anion Gap 4 L BUN 17 Creatinine 1.23 Estim Creat Clear Calc 50.46 Est GFR (MDRD) Af Amer 73 Est GFR (MDRD) Non-Af 60 BUN/Creatinine Ratio 13.8 Glucose 161 H Calcium 9.1 Troponin I High Sens 24 B-Natriuretic Peptide 372.5 H Radiography Diagnostic Testing: Clinical Impression(s) from Imaging Studies Chest X-Ray 08/25/24 11:30 IMPRESSION: Small bilateral pleural effusions right greater than left with CHF. Cardiomegaly. Reading Location: [facility] Discharge Plan Triage Chief Complaint: Shortness of Breath ED Provider: Horace Euceda Dx/Rx/DC Orders Clinical Impression: Pleural effusion, Acute on chronic diastolic CHF (congestive heart failure), NYHA class 3, Acute on chronic hypoxic respiratory failure Prescriptions: No Action fluticasone propionate [Flonase Allergy Relief] 50 mcg/actuation spray,suspension 50 mcg INTRANASAL QDAY PRN (Reason: Congestion) ipratropium-albuterol 0.5 mg-3 mg(2.5 mg base)/3 mL solution for nebulization 3 ml INHALATION Q4HWA.RT PRN (Reason: Sob &/Or Wheezing) isosorbide mononitrate 30 mg tablet extended release 24 hr 30 mg PO BID montelukast 10 mg tablet 10 mg PO DAILY metformin 500 mg tablet 500 mg PO BID nitroglycerin 0.4 mg tablet, sublingual 0.4 mg SUBLINGUAL Q5M PRN (Reason: Chest Pain) Qty: 25 3RF omeprazole 40 mg capsule,delayed release(DR/EC) PO DAILY amiodarone 200 mg tablet 200 mg PO QDAY pregabalin 50 mg capsule 50 mg PO DIRECTED furosemide [Lasix] 40 mg tablet 40 mg PO BID Qty: 180 3RF carvedilol 25 mg tablet 25 mg PO BID Qty: 180 3RF Rx Instructions: must administer with a meal/food potassium chloride 20 mEq tablet extended release 20 meq PO QDAY Qty: 90 3RF ramipril 10 MG capsule 10 mg PO BID atorvastatin 80 MG tablet 80 mg PO QHS acetaminophen [Tylenol Extra Strength] 500 mg Tablet 1,000 mg PO Q8H PRN PRN (Reason: Pain) Qty: 30 0RF albuterol sulfate 2.5 mg /3 mL (0.083 %) solution for nebulization 2.5 mg inhalation Q4H PRN PRN (Reason: SOB) Rx Instructions: Use q4 hours and PRN for wheezing guaifenesin 1,200 mg tablet extended release 12hr 1,200 mg PO Q12H PRN PRN (Reason: congestion) amlodipine 5 mg tablet 10 mg PO DAILY budesonide-formoterol [Symbicort] 160-4.5 mcg/actuation HFA aerosol inhaler 2 puff INHALATION Q12H Qty: 3 3RF Eliquis 5 mg tablet 5 mg PO BID Qty: 180 3RF Primary Care Provider: Fito Velez Referrals: Fito Velez MD [Primary Care Provider] - Print Language: Bahamian Disposition Disposition: Acute Care Hospital [facility]
[2024-08-25 12:23] LABS: BNP,B-Type NATRIURETIC PEPTIDE 372.5 pg/mL (0-100)
[2024-08-25 12:33] LABS: Partial Thromboplast Time 37.7 Seconds (24.1-36.2)
[2024-08-25 12:36] LABS: International Normalized Ratio 1.6; Prothrombin Time (Protime)PT. 19.4 SECONDS (11.7-14.9)
[2024-08-25] MEDS: Furosemide 40 MG/4 ML Vial IV ×3 (12:40→20:47)
[2024-08-25 13:36] LABS: Reflex Troponin-HS? (from REC) Y
[2024-08-25 14:30] LABS: Troponin-I HS 25 pg/mL (3.0-78.0)
--- NOTE | 2024-08-25 14:31 | CASEMGMT ---
Lace: 2 Assessment- SW completed assessment with patient. Patient was alert and oriented X4. Patient was a little sleepy, but was able to stay awake to answer questions. Patient's friend/caregiver Sharri was present. Patient was okay talking in front of Sharri. Living situation- Patient lives alone in a ground level apartment with 2 entry steps. PCP: Dr Velez with [facility] Specialists: [facility] and [facility] Pharmacy: [facility] [place] DME:? Patient has home O2 through [employer]. Patient said he wears 4L all of the time. Patient said it has only been lately that he has been wearing this much O2. Patient also has a shower chair and a cane. Patient does not use the cane to get around. ADL's/IADL's: Sharri helps patient with cooking, cleaning, and showering. Patient does set up his own medications. Patient normally drives. Past SNF/rehab: None Past HH: None. Patient and Sharri stated they may be interested in home health. LW: None POA:? None. Sharri and patient stated they talked about patient completing these while here. Patient said he would name his son Thang as POA and then Sharri as the back up. LNOK: Klaudia Bagley-daughter and Thang Faith-son Plan: Patient plans on returning home with Sharri's assistance. Patient was also interested in completing Healthcare Power of Director Of Guidance while in the hospital. SW told patient SW can assist him with these documents. Vicki Parson FIELD GEOLOGIST NANDA
[2024-08-25] MEDS: Nystatin Powder 15gm Bottle 1 APPLIC TOPICAL ×2 (15:58→20:48)
[2024-08-25] MEDS: Insulin Lispro 100 UNIT/ML INSULN.PEN SC (16:07)
--- NOTE | 2024-08-25 16:10 | PCM.HP.STD ---
HPI - General General Date of Admission: 08/25/24 HPI Narrative MACIE NAVA, is a 78 M who presents to the hospital for increasing shortness of breath. He had presented to the radiology department for thoracentesis however had taken his Eliquis this morning therefore they could not do it safely and he was requiring more oxygen as he was hypoxic so he was transferred to the ER. On evaluation in the ER he was hypoxic on his 3 to 4 L nasal cannula at home down to about 80% so he was increased to about 6 L nasal cannula. He was given a dose of Lasix. BNP was 372 and initial troponin was normal. He states that he has been feeling increasingly short of breath with edema for the last couple of weeks. At the end of July he did have a thoracentesis that drained about 550 cc though we do not have access to the lab work that may have been obtained [facility] Medical History Hypoxemia Wears glasses Wears dentures Cancer Arthritis Prostate disease High cholesterol Back pain Blackout Syncope Dietary restriction History of ulceration Heartburn CPAP (continuous positive airway pressure) dependence Asthma Shortness of breath on exertion History of pain when walking History of edema History of stress test History of echocardiogram Cardiology follow-up encounter Injury of head and neck Diabetes Former smoker On home oxygen therapy ICD (implantable cardioverter-defibrillator) in place Pacemaker Congestive heart failure (CHF) Myocardial infarct Coronary artery disease Hypertension Stroke/cerebrovascular accident Near syncope NSVT (nonsustained ventricular tachycardia) Atrial flutter Femoral artery aneurysm, right Hyperlipidemia, unspecified Essential (primary) hypertension T-cell lymphoma Atherosclerotic heart disease of [place] coronary artery without angina pectoris COPD (chronic obstructive pulmonary disease) Carotid artery disease Influenza B Shortness of breath Nicotine dependence in remission Obesity Allergic rhinitis Ischemic cardiomyopathy Peripheral vascular disease CAD (coronary artery disease) Home Medications ?Medication ?Instructions ?Recorded ?Last Taken ?Type ramipril 10 mg capsule 10 mg PO BID blood pressure 12/25/13 08/25/24 History fluticasone propionate 50 50 mcg intranasal BID PRN 06/25/17 07/14/24 History mcg/actuation nasal Congestion spray,suspension (Flonase Allergy Relief) atorvastatin 80 mg tablet 80 mg PO QHS cholesterol 08/14/17 08/24/24 History ipratropium 0.5 mg-albuterol 3 mg 3 ml inhalation Q4H PRN Sob &/Or 09/03/18 05/06/20 History (2.5 mg base)/3 mL nebulization Wheezing soln isosorbide mononitrate 30 mg 30 mg PO BID blood pressure 10/28/19 08/25/24 History tablet,extended release 24 hr montelukast 10 mg tablet 10 mg PO QHS allergy 02/17/20 08/24/24 History metformin 500 mg tablet 500 mg PO BID blood glucose 06/28/20 08/25/24 History budesonide-formoterol HFA 160 2 puff inhalation Q12H ASTHMA #3 01/18/24 Unknown Rx mcg-4.5 mcg/actuation aerosol device inhaler (Symbicort) nitroglycerin 0.4 mg sublingual 0.4 mg sublingual Q5M PRN Chest 03/20/24 Unknown Rx tablet Pain #25 tabs apixaban 5 mg tablet (Eliquis) 5 mg PO BID BLOOD THINNER #180 tabs 04/07/24 08/25/24 Rx albuterol sulfate 2.5 mg/3 mL 2.5 mg inhalation Q4H PRN SOB 07/01/24 Unknown History (0.083 %) solution for nebulization guaifenesin 1,200 mg tablet, 1,200 mg PO Q12H congestion 07/01/24 08/25/24 History extended release 12 hr amlodipine 5 mg tablet 5 mg PO DAILY BP 08/19/24 08/25/24 History potassium chloride 20 mEq 20 meq PO QDAY #90 tabs 08/19/24 08/25/24 Rx tablet,extended release pregabalin 50 mg capsule 50 mg PO DIRECTED 08/19/24 Unknown History acetaminophen 500 mg tablet 1,000 mg PO Q8 PRN Pain 08/25/24 Unknown History (Tylenol Extra Strength) carvedilol 12.5 mg tablet 12.5 mg PO BID 08/25/24 08/25/24 History furosemide 40 mg tablet (Lasix) 40 mg PO DAILY 08/25/24 Unknown History Allergy/AdvReac Type Severity Reaction Status Date / Time ciprofloxacin (From Cipro) Allergy Swelling Verified 08/19/24 10:21 ciprofloxacin HCl (From Allergy hand Verified 08/19/24 10:21 Cipro) Swelling Sulfa (Sulfonamide Allergy Unknown Verified 08/19/24 10:21 Antibiotics) Family History Father Heart disease Cancer Prostate Brother Cancer prostate cancer Surgical History Hx of CABG History of coronary artery stent placement History of left knee replacement h/o left TKA History of tonsillectomy Presence of biventricular implantable cardioverter-defibrillator (ICD) (04/22/12) Presence of stent in coronary artery Aortocoronary bypass status (~05/17/12) History of permanent cardiac pacemaker placement Hx of CABG Presence of other cardiac implants and grafts Social History household members: none Smoking Status: Former smoker pack-years: 75 how long ago did patient quit smokin years ago second hand exposure: No alcohol intake: current alcohol intake frequency: holidays/special occasions only Alcohol type: beer substance use type: does not use caffeine: Yes Type: carbonated beverages Number of servings: 1 ROS Constitutional Constitutional: Denies chills, fatigue, fever(s) or malaise Eyes Eyes: Denies blurry vision ENT HEENT: Denies headache(s) or nasal discharge Cardiovascular Cardiovascular: Reports dyspnea on exertion and edema; Denies chest pain or syncope Respiratory/Chest Respiratory/Chest: Reports shortness of breath at rest; Denies cough or shortness of breath with exertion Gastrointestinal Gastrointestinal: Denies constipation, diarrhea, nausea or vomiting Genitourinary Genitourinary: Denies dysuria Neurologic Neurologic: Denies focal weakness, numbness or tremor(s) Psychiatric Psychiatric: Denies anxiety or depression Vital Signs Vital Signs Vital Signs: 08/25/24 11:13 08/25/24 11:18 08/25/24 11:20 Temperature 98 F Temperature Source Oral Pulse Rate 70 Respiratory Rate 18 Respiratory Effort Short of Breath Respiratory Depth Respiratory Pattern Blood Pressure 133/81 H Blood Pressure Mean 98 Blood Pressure Source Blood Pressure Position Blood Pressure Location Pulse Ox 95 Oxygen Delivery Method Nasal Cannula Nasal Cannula Oxygen Flow Rate (L/min) 5 5 08/25/24 11:29 08/25/24 12:12 08/25/24 12:56 Temperature 97.8 F Temperature Source Pulse Rate 90 70 Respiratory Rate 22 H 22 H Respiratory Effort Respiratory Depth Respiratory Pattern Blood Pressure 130/79 H 135/111 H Blood Pressure Mean 96 119 Blood Pressure Source Blood Pressure Position Blood Pressure Location Pulse Ox 94 93 Oxygen Delivery Method Nasal Cannula Nasal Cannula Oxygen Flow Rate (L/min) 5 5 08/25/24 13:29 08/25/24 14:33 Temperature 97.7 F L Temperature Source Oral Pulse Rate 70 Respiratory Rate 16 Respiratory Effort Normal Non-Labored Respiratory Depth Normal Respiratory Pattern Normal Blood Pressure 131/79 H Blood Pressure Mean 96 Blood Pressure Source Monitor Blood Pressure Position Semi-Fowlers Blood Pressure Location Left Arm Pulse Ox 92 Oxygen Delivery Method Nasal Cannula Nasal Cannula Oxygen Flow Rate (L/min) 5 5 Weight Weight: 194 lb 10.691 oz Body Mass Index (BMI) 30.4 Physical Exam Narrative General: Alert, Oriented x3, Cooperative, No apparent distress HEENT: Atraumatic, PERRLA, EOMI, Normocephalic Oral: Moist Mucosa Neck: Supple, No JVD Lungs: Diminished, Normal air movement, No rhonchi, scattered wheeze, No rales Cardiovascular: Regular rate, Regular Rhythm, Normal S1, Normal S2, No murmurs Abdomen: Soft, Non Tender, Non-Distended, No Hepato-splenomegaly Extremities: Edema, Capillary Refill Less than 3 Seconds Skin: No rashes, No breakdown Musculoskeletal: No Tenderness to Palpation of Joints or Extremities Neurological: No focal neurological deficits, Motor Exam 5/5 strength throughout, Sensory exam intact to light touch and pain Psych/Mental Status: Normal Affect, Appropriate Results Lab / Micro Data 08/25/24 11:25 08/25/24 11:25 Labs: Laboratory Results - last 24 hr 08/25/24 11:25: WBC 10.5, RBC 4.22 L, Hgb 12.8 L, Hct 39.7 L, MCV 94.1 H, MCH 30.3, MCHC 32.2, RDW Std Deviation 50.7 H, RDW Coeff of Kip 14.6, Plt Count 180, MPV 10.6, Immature Gran % (Auto) 0.800, Neut % (Auto) 81.8 H, Lymph % (Auto) 6.5 L, [place] % (Auto) 9.2, Eos % (Auto) 1.1, Baso % (Auto) 0.6, Absolute Neuts (auto) 8.6 H, Absolute Lymphs (auto) 0.68 L, Nucleated RBC % 0, Sodium 140, Potassium 3.4 L, Chloride 102, Carbon Dioxide 34.0 H, Anion Gap 4 L, BUN 17, Creatinine 1.23, Estim Creat Clear Calc 50.46, Est GFR (MDRD) Af Amer 73, Est GFR (MDRD) Non-Af 60, BUN/Creatinine Ratio 13.8, Glucose 161 H, Calcium 9.1, Troponin I High Sens 24, B-Natriuretic Peptide 372.5 H 08/25/24 12:07: PT 19.4 H, INR 1.6, APTT 37.7 H 08/25/24 13:50: Troponin I High Sens 25 Imaging Radiology Impression Chest X-Ray 08/25/24 11:30 IMPRESSION: Small bilateral pleural effusions right greater than left with CHF. Cardiomegaly. Reading Location: [id number] Assessment & Plan Assessment/Plan (1) Acute on chronic diastolic CHF (congestive heart failure), NYHA class 3: PLAN: Plan 1. Acute on chronic diastolic CHF with acute on chronic hypoxic respiratory insufficiency/essential HTN/HLD/A-fib/CAD status post CABG/status post carotid endarterectomy ? He was hypoxic to 88% on here in the ER and his home oxygen of 4 L had to be bumped up to 6 ? No significant increased work of breathing at this time ? Will place him on Lasix IV 40 mg 3 times daily ? Of note his cardiology reports states that he should increase his Lasix to twice daily, does not appear that he has done so ? Will repeat an echo in the morning ? Will resume his home blood pressure medications ? Continue with Lipitor ? Will hold his Eliquis for the possibility of a thoracentesis, he did take it this morning 2. DM2 ? Will hold metformin ? Sliding scale insulin ? Accu-Cheks ACHS ? Will monitor and make adjustments as necessary with neuropathy DVT: SCDs 75 minutes was spent on direct patient care, including documentation as well as chart review and collaboration with colleagues Charges/Coding Visit Charges Inpatient E&M: 44472 Init Hosp L3
[2024-08-25 18:17] LABS: Bedside Glucose 213 mg/dL (74-106)
[2024-08-25] MEDS: Carvedilol 25 MG Tablet PO (18:31)
[2024-08-25] MEDS: Ramipril 10 MG Capsule PO (20:47)
[2024-08-25] MEDS: Isosorbide Mononitrate 30 MG Tablet PO (20:47)
[2024-08-25] MEDS: Montelukast 10 MG Tablet PO (20:47)
[2024-08-25] MEDS: Atorvastatin Calcium 80 MG Tablet PO (20:47)
[2024-08-25 21:12] LABS: Bedside Glucose 134 mg/dL (74-106)
[2024-08-26] VITALS (7 sets, daily range): BP systolic 103–144; BP diastolic 68–82; PULSE 69–70; RESP 18–20; TEMP 36.4–36.8; O2SAT 90–98; BMI 31.0
[2024-08-26] MEDS: Nystatin Powder 15gm Bottle 1 APPLIC TOPICAL (06:31)
[2024-08-26] MEDS: Furosemide 40 MG/4 ML Vial IV ×3 (06:32→22:18)
[2024-08-26 07:02] LABS: Bedside Glucose 114 mg/dL (74-106)
[2024-08-26 07:21] LABS: Absolute Lymphocyte Count 0.69 X10^3/uL (0.83-4.51); Absolute Neutrophil Count 7.4 X10^3/uL (2.0-7.7); Basophil# 0.06 X10^3/uL; Basophil% 0.6 % (0-1); Eosinophil# 0.15 X10^3/uL; Eosinophils% 1.6 % (0-5); Hematocrit 37.9 % (40-54); Hemoglobin 11.8 g/dL (13.0-16.5); Lymphocyte # 0.69 X10^3/ul (0.83-4.51); Lymphocyte % 7.4 % (19-41); Mean Corp Hgb Conc 31.1 g/dL (32-36); Mean Corpuscular Hgb 29.5 pg (27.0-32.0); Mean Corpuscular Volume 94.8 fL (80-94); Mean Platelet Vol. 10.6 fl (6.2-12.0); Monocyte# 0.98 X10^3/uL; Monocyte% 10.5 % (0-10); NRBC Flagged by Analyzer 0 % (0-5); Neutrophil % 79.5 % (47-70); Platelet Count 181 K/mm3 (150-450); RBC Distribution Width CV 14.3 % (11.6-14.6); RBC Distribution Width SD 49.5 fl (35.1-43.9); White Blood Count 9.3 K/mm3 (4.4-11.0)
[2024-08-26 08:18] LABS: Anion Gap 5 (5-15); BUN 17 mg/dL (7-18); BUN/Creat Ratio 16.3 RATIO (10-20); Calcium,Total 8.8 mg/dL (8.5-10.1); Chloride 101 mmol/L (98-107); Creatinine, Serum 1.04 mg/dL (0.70-1.30); EST Glomerular Filtration Rate 73 mL/min (>60); Est Glom Filt Rate - Afr Amer 88 mL/min (>60); Estimated Creatinine Clearance 60.59 ml/min; Glucose 121 mg/dL (74-106); Sodium Level 140 mmol/L (136-145)
[2024-08-26] MEDS: Ramipril 10 MG Capsule PO ×2 (08:20→22:29)
[2024-08-26] MEDS: amLODIPine 5 MG Tablet PO (08:20)
[2024-08-26] MEDS: Isosorbide Mononitrate 30 MG Tablet PO ×2 (08:20→22:20)
[2024-08-26] MEDS: Carvedilol 25 MG Tablet PO ×2 (08:21→17:25)
--- NOTE | 2024-08-26 09:14 | CASEMGMT ---
Discharge Planning A list of HH providers including quality and resource use data and consistent with the patient's preferred geographic region, medical needs, and insurance network was created in [employer].? This list was provided to the RN RAJESH. Angelika Mcnamara, Discharge Planning Asst.
--- NOTE | 2024-08-26 10:15 | PCM.PN.HOSP ---
Subjective Subjective Doing well, no issues overnight Objective Data Objective Data Vital Signs: Vital Signs Temp Pulse Resp BP Pulse Ox O2 Del Method O2 Flow Rate 97.9 F 69 20 H 144/80 H 92 Nasal Cannula 5 08/26/24 08:16 08/26/24 08:16 08/26/24 08:16 08/26/24 08:16 08/26/24 08:16 08/26/24 09:53 08/26/24 09:53 Oxygen Flow Rate (L/min) 5 Oxygen Delivery Method Nasal Cannula Weight: 198 lb 3.129 oz Body Mass Index (BMI) 31.0 Intake & Output: Intake and Output for Last 24 Hours 08/25/24 08/26/24 08/27/24 03:59 03:59 03:59 Intake Total 240 / 240 Output Total 1875 / 1875 350 / 350 Balance -1635 / -1635 -350 / -350 Lab / Micro Data 08/26/24 06:18 08/26/24 06:18 Labs: Laboratory Results - last 24 hr 08/25/24 11:25: WBC 10.5, RBC 4.22 L, Hgb 12.8 L, Hct 39.7 L, MCV 94.1 H, MCH 30.3, MCHC 32.2, RDW Std Deviation 50.7 H, RDW Coeff of Kip 14.6, Plt Count 180, MPV 10.6, Immature Gran % (Auto) 0.800, Neut % (Auto) 81.8 H, Lymph % (Auto) 6.5 L, [place] % (Auto) 9.2, Eos % (Auto) 1.1, Baso % (Auto) 0.6, Absolute Neuts (auto) 8.6 H, Absolute Lymphs (auto) 0.68 L, Nucleated RBC % 0, Sodium 140, Potassium 3.4 L, Chloride 102, Carbon Dioxide 34.0 H, Anion Gap 4 L, BUN 17, Creatinine 1.23, Estim Creat Clear Calc 50.46, Est GFR (MDRD) Af Amer 73, Est GFR (MDRD) Non-Af 60, BUN/Creatinine Ratio 13.8, Glucose 161 H, Calcium 9.1, Troponin I High Sens 24, B-Natriuretic Peptide 372.5 H 08/25/24 12:07: PT 19.4 H, INR 1.6, APTT 37.7 H 08/25/24 13:50: Troponin I High Sens 08/25/24 16:00: POC Glucose 213 H 08/25/24 20:45: POC Glucose 134 H 08/26/24 06:18: WBC 9.3, RBC 4.00 L, Hgb 11.8 L, Hct 37.9 L, MCV 94.8 H, MCH 29.5, MCHC 31.1 L, RDW Std Deviation 49.5 H, RDW Coeff of Kip 14.3, Plt Count 181, MPV 10.6, Immature Gran % (Auto) 0.400, Neut % (Auto) 79.5 H, Lymph % (Auto) 7.4 L, [place] % (Auto) 10.5 H, Eos % (Auto) 1.6, Baso % (Auto) 0.6, Absolute Neuts (auto) 7.4, Absolute Lymphs (auto) 0.69 L, Nucleated RBC % 0, Sodium 140, Potassium 3.0 L, Chloride 101, Carbon Dioxide 34.0 H, Anion Gap 5, BUN 17, Creatinine 1.04, Estim Creat Clear Calc 60.59, Est GFR (MDRD) Af Amer 88, Est GFR (MDRD) Non-Af 73, BUN/Creatinine Ratio 16.3, Glucose 121 H, Calcium 8.8 08/26/24 06:29: POC Glucose 114 H Radiography Diagnostic Testing: Radiology Impression Chest X-Ray 08/25/24 11:30 IMPRESSION: Small bilateral pleural effusions right greater than left with CHF. Cardiomegaly. Reading Location: [facility] Physical Exam Narrative General: Alert, Oriented x3, Cooperative, No apparent distress HEENT: Atraumatic, PERRLA, EOMI, Normocephalic Oral: Moist Mucosa Neck: Supple, No JVD Lungs: Diminished, Normal air movement, No rhonchi, scattered wheeze, No rales Cardiovascular: Regular rate, Regular Rhythm, Normal S1, Normal S2, No murmurs Abdomen: Soft, Non Tender, Non-Distended, No Hepato-splenomegaly Extremities: Edema, Capillary Refill Less than 3 Seconds Skin: No rashes, No breakdown Musculoskeletal: No Tenderness to Palpation of Joints or Extremities Neurological: No focal neurological deficits, Motor Exam 5/5 strength throughout, Sensory exam intact to light touch and pain Psych/Mental Status: Normal Affect, Appropriate Assessment & Plan Assessment/Plan (1) Acute on chronic diastolic CHF (congestive heart failure), NYHA class 3: PLAN: Plan 1. Acute on chronic diastolic CHF with acute on chronic hypoxic respiratory insufficiency/essential HTN/HLD/A-fib/CAD status post CABG/status post carotid endarterectomy ? He was hypoxic to 88% on here in the ER and his home oxygen of 4 L had to be bumped up to 6 ? No significant increased work of breathing at this time ? Will place him on Lasix IV 40 mg 3 times daily ? Of note his cardiology reports states that he should increase his Lasix to twice daily, does not appear that he has done so ?He does have an echo done at [place] with an EF of 58% which is in line with his echo from December 2023. At that time he had a stage II diastolic dysfunction ? Will resume his home blood pressure medications ? Continue with Lipitor ? Will hold his Eliquis for the possibility of a thoracentesis, he did take it on the morning of admission. If he continues to require significantly increased oxygen tomorrow may need to proceed with thoracentesis 2. DM2 ? Will hold metformin ? Sliding scale insulin ? Accu-Cheks ACHS ? Will monitor and make adjustments as necessary with neuropathy DVT: SCDs Charges/Coding Visit Charges Inpatient E&M: 41126 Subs Hosp L2
[2024-08-26 11:53] LABS: Bedside Glucose 210 mg/dL (74-106)
[2024-08-26] MEDS: Potassium Chloride Oral Tablet 20 MEQ 60 MEQ PO (12:00)
[2024-08-26] MEDS: Insulin Lispro 100 UNIT/ML INSULN.PEN SC ×2 (12:07→22:17)
--- NOTE | 2024-08-26 15:20 | CASEMGMT ---
Patient had expressed interested in completing Healthcare Power of Clothing Manager. SW assisted patient in completing documents. Copies were made and given to patient along with original. A copy was also placed in patient's chart. Vicki VEE
[2024-08-26 17:40] LABS: Bedside Glucose 136 mg/dL (74-106)
[2024-08-26] MEDS: 0.9% Saline Lock 10 ML Syringe IV (22:19)
[2024-08-26] MEDS: Atorvastatin Calcium 80 MG Tablet PO (22:21)
[2024-08-26] MEDS: Montelukast 10 MG Tablet PO (22:22)
[2024-08-27] VITALS (9 sets, daily range): BP systolic 110–131; BP diastolic 61–75; PULSE 68–70; RESP 18–20; TEMP 36.5–36.7; O2SAT 83–99; BMI 30.8
[2024-08-27 02:54] LABS: Bedside Glucose 177 mg/dL (74-106)
[2024-08-27 06:22] LABS: Absolute Lymphocyte Count 0.85 X10^3/uL (0.83-4.51); Absolute Neutrophil Count 8.3 X10^3/uL (2.0-7.7); Basophil# 0.07 X10^3/uL; Basophil% 0.7 % (0-1); Eosinophil# 0.15 X10^3/uL; Eosinophils% 1.4 % (0-5); Hematocrit 36.9 % (40-54); Hemoglobin 12.1 g/dL (13.0-16.5); Lymphocyte # 0.85 X10^3/ul (0.83-4.51); Mean Corp Hgb Conc 32.8 g/dL (32-36); Mean Corpuscular Hgb 30.9 pg (27.0-32.0); Mean Corpuscular Volume 94.1 fL (80-94); Mean Platelet Vol. 10.9 fl (6.2-12.0); Monocyte# 1.19 X10^3/uL; Monocyte% 11.3 % (0-10); NRBC Flagged by Analyzer 0 % (0-5); Neutrophil # 8.25 X10^3/uL (2.7-7.7); Platelet Count 183 K/mm3 (150-450); RBC Distribution Width CV 14.4 % (11.6-14.6); RBC Distribution Width SD 49.7 fl (35.1-43.9); Red Blood Count 3.92 M/mm3 (4.6-6.2); White Blood Count 10.6 K/mm3 (4.4-11.0)
[2024-08-27 06:48] LABS: Anion Gap 6 (5-15); BUN 19 mg/dL (7-18); BUN/Creat Ratio 17.1 RATIO (10-20); Calcium,Total 8.7 mg/dL (8.5-10.1); Chloride 102 mmol/L (98-107); Creatinine, Serum 1.11 mg/dL (0.70-1.30); EST Glomerular Filtration Rate 68 mL/min (>60); Est Glom Filt Rate - Afr Amer 82 mL/min (>60); Estimated Creatinine Clearance 56.59 ml/min; Glucose 134 mg/dL (74-106); Potassium 3.3 mmol/L (3.5-5.1); Sodium Level 142 mmol/L (136-145)
[2024-08-27] MEDS: Furosemide 40 MG/4 ML Vial IV ×2 (06:51→17:02)
[2024-08-27] MEDS: 0.9% Saline Lock 10 ML Syringe IV ×3 (06:54→22:19)
[2024-08-27 07:18] LABS: Bedside Glucose 131 mg/dL (74-106)
[2024-08-27] MEDS: Isosorbide Mononitrate 30 MG Tablet PO ×2 (10:06→22:17)
[2024-08-27] MEDS: Carvedilol 25 MG Tablet PO ×2 (10:06→17:02)
[2024-08-27] MEDS: Potassium Chloride Oral Tablet 20 MEQ 40 MEQ PO (10:06)
[2024-08-27] MEDS: amLODIPine 5 MG Tablet PO (10:07)
--- NOTE | 2024-08-27 11:40 | CASEMGMT ---
Addendum entered by Camila Cha 08/27/24 15:52: 3:30 PM: Per Cate @ [facility], they are not able to accept pt, stating pt is outside of their service area. Addendum entered by Camila Cha 08/27/24 11:45: Pt states he does have a pulse ox @ home. Original Note: RN RAJESH NOTE: RN CM to room. Pt sitting up in chair. Introduced self and role. Pt states he got OOB today w/SBA from nursing staff and states he feels he did well. He feels safe to discharge home when medically ready. He is interested in [facility], made aware of services that can be provided and questions answered. He was provided w/[facility] list that was prepared by Angelika discharge surgical physician assistant. He is interested in referral w/[facility], if they are able to accept him. Noted [facility] not on the list, pt informed RN RAJESH would check to see if they can accept him. Call placed to [facility]. No answer. Message sent to Cate @ [facility] re: referral. Awaiting response. Pt states he has a portable O2 tank to go home on, stating Sharri will be taking him home and she can bring it in to the hospital when he is ready for discharge. Elham HARRIS RN CM
[2024-08-27] MEDS: Insulin Lispro 100 UNIT/ML INSULN.PEN SC ×3 (12:03→22:16)
[2024-08-27 12:14] LABS: Bedside Glucose 188 mg/dL (74-106)
--- NOTE | 2024-08-27 15:55 | CASEMGMT ---
HH referral sent to [facility], [facility], and [facility]. [facility] is AOC. Angelika Mcnamara DC Planning Asst.
[2024-08-27 16:47] LABS: Bedside Glucose 197 mg/dL (74-106)
[2024-08-27] MEDS: Atorvastatin Calcium 80 MG Tablet PO (22:17)
[2024-08-27] MEDS: Montelukast 10 MG Tablet PO (22:17)
[2024-08-27] MEDS: Ramipril 10 MG Capsule PO (22:17)
[2024-08-27 23:25] LABS: Bedside Glucose 249 mg/dL (74-106)
[2024-08-28 04:57] VITALS: BP 123/66; PULSE 70; RESP 18; TEMP 36.7; O2SAT 93
[2024-08-28 05:16] VITALS: BMI 30.6
[2024-08-28 06:53] LABS: Bedside Glucose 145 mg/dL (74-106)
[2024-08-28 07:07] VITALS: O2SAT 95
--- NOTE | 2024-08-28 07:55 | CT_ITS ---
PROCEDURE: CHEST WITHOUT CONTRAST REASON FOR EXAM: Shortness of breath. Bilateral pleural effusions and CHF. TECHNIQUE: Chest CT without contrast. COMPARISON: None. FINDINGS: Hardware: None. Lymph nodes: Small benign-appearing mediastinal lymph nodes. Heart and Vasculature: Mild cardiomegaly. A left-sided dual-chamber pacemaker is seen. Atherosclerotic calcifications of the thoracic aorta. Thoracic aorta and pulmonary arteries have normal contours; noncontrast technique limits evaluation. Coronary Artery Calcifications: Present Lungs and Airways: Small bilateral pleural effusions right greater than left with bibasilar dependent atelectasis and/or early infiltrate. Scattered calcified granulomas. No significant vascular congestion is seen at this time. Pleura: No pleural effusion. No pneumothorax. Upper Abdomen: Calcified splenic granulomas. Diffuse pancreatic atrophy. Multiple gallstones. Bones: Degenerative changes of the thoracic spine. CT/Chest without Contrast IMPRESSION: Bilateral pleural effusions right greater than left with bibasilar dependent at electasis and/or early infiltrates. No significant vascular congestion is seen. Coronary artery calcification. One or more dose reduction techniques were used (e.g., Automated exposure contr ol, adjustment of the mA and/or kV according to patient size, use of iterative reconstruction technique). Reading Location: [facility]
[2024-08-28 08:21] LABS: Absolute Lymphocyte Count 0.78 X10^3/uL (0.83-4.51); Absolute Neutrophil Count 8.4 X10^3/uL (2.0-7.7); Basophil# 0.06 X10^3/uL; Basophil% 0.6 % (0-1); Eosinophil# 0.14 X10^3/uL; Eosinophils% 1.3 % (0-5); Hematocrit 40.8 % (40-54); Hemoglobin 13.2 g/dL (13.0-16.5); Lymphocyte # 0.78 X10^3/ul (0.83-4.51); Lymphocyte % 7.5 % (19-41); Mean Corp Hgb Conc 32.4 g/dL (32-36); Mean Corpuscular Hgb 30.6 pg (27.0-32.0); Mean Corpuscular Volume 94.4 fL (80-94); Monocyte# 0.99 X10^3/uL; Monocyte% 9.5 % (0-10); NRBC Flagged by Analyzer 0 % (0-5); Neutrophil # 8.43 X10^3/uL (2.7-7.7); Neutrophil % 80.6 % (47-70); Platelet Count 192 K/mm3 (150-450); RBC Distribution Width CV 14.4 % (11.6-14.6); RBC Distribution Width SD 50.5 fl (35.1-43.9); Red Blood Count 4.32 M/mm3 (4.6-6.2); White Blood Count 10.5 K/mm3 (4.4-11.0)
[2024-08-28 08:32] LABS: Partial Thromboplast Time 30.8 Seconds (24.1-36.2)
[2024-08-28 08:35] LABS: International Normalized Ratio 1.1; Prothrombin Time (Protime)PT. 14.5 SECONDS (11.7-14.9)
[2024-08-28 08:53] LABS: Anion Gap 4 (5-15); BUN 20 mg/dL (7-18); BUN/Creat Ratio 17.2 RATIO (10-20); Calcium,Total 9.4 mg/dL (8.5-10.1); Chloride 102 mmol/L (98-107); Creatinine, Serum 1.16 mg/dL (0.70-1.30); EST Glomerular Filtration Rate 64 mL/min (>60); Est Glom Filt Rate - Afr Amer 78 mL/min (>60); Estimated Creatinine Clearance 53.95 ml/min; Glucose 132 mg/dL (74-106); Potassium 3.7 mmol/L (3.5-5.1); Sodium Level 140 mmol/L (136-145)
--- NOTE | 2024-08-28 09:11 | CASEMGMT ---
[facility] has accepted. Pt and RN CM updated. [facility] asked to cancel referral. Angelika Mcnamara DC Planning Asst.
[2024-08-28] MEDS: amLODIPine 5 MG Tablet PO (10:24)
[2024-08-28] MEDS: Ramipril 10 MG Capsule PO ×2 (10:24→21:49)
[2024-08-28] MEDS: Isosorbide Mononitrate 30 MG Tablet PO ×2 (10:24→21:50)
[2024-08-28] MEDS: Furosemide 40 MG/4 ML Vial IV ×2 (10:25→18:17)
[2024-08-28] MEDS: Carvedilol 25 MG Tablet PO ×2 (10:25→18:17)
[2024-08-28 10:45] VITALS: BP 123/72; PULSE 70; RESP 18; TEMP 36.6; O2SAT 95
--- NOTE | 2024-08-28 11:46 | US_ITS ---
PROCEDURE: Ultrasound of the thorax. REASON FOR EXAM: Pleural effusion PROCEDURE: Both misti thoraces were scanned. There is a small amount of pleural fluid bilaterally, greatest on the right. No thoracentesis was performed. US/Chest IMPRESSION: Small bilateral pleural effusions, greatest on the right. No thoracentesis was performed. Reading Location: [facility]
[2024-08-28] MEDS: Insulin Lispro 100 UNIT/ML INSULN.PEN SC ×2 (12:02→18:17)
[2024-08-28] MEDS: Nystatin Powder 15gm Bottle 1 APPLIC TOPICAL (12:04)
[2024-08-28 12:21] VITALS: O2SAT 94
[2024-08-28 12:38] LABS: Bedside Glucose 170 mg/dL (74-106)
[2024-08-28 13:40] VITALS: BP 100/53; PULSE 70; RESP 18; O2SAT 98
--- NOTE | 2024-08-28 13:48 | PCM.PN.BLA ---
Progress Note Mr. Faith returns to the radiology department today for possibility of a thoracentesis. He is currently admitted in PCU. He was previously evaluated by my self on 08/25/2024; however, the patient was found to be hypoxic. He was sent to the ER and subsequently admitted. A thoracentesis could not safely be completed at this time due to his recent Eliquis use. Please refer to progress note from this date for additional details. On today's evaluation, the patient states he is much less short of breath. A very small pocket of pleural fluid was identified on the right side during ultrasound survey; however, I do not believe draining this would have a substantial therapeutic effect- therefore the risks outweigh the benefit at present time. After speaking with the ordering provider, Angella Garcia NP, a diagnostic sample is not needed. A sample of pleural fluid was obtained on 08/01/2024 from [facility] that is available for review. If the patient's condition were to change or there is worsening of the pleural effusion, please do not hesitate to reach out to the radiology department again for intervention.
--- NOTE | 2024-08-28 14:46 | PN_ITS ---
Subjective Subjective Patient seen and examined. He had no active complaints today. He was on 5 L of oxygen at time I reviewed him. He denied any coughing or chest pain, shortness of breath, palpitations, dizziness, nausea vomiting or any other symptoms. Review of systems otherwise negative. He has otherwise remained hemodynamically stable. Objective Data Objective Data Vital Signs: Vital Signs Temp Pulse Resp BP Pulse Ox O2 Del Method O2 Flow Rate 97.9 F 70 18 100/53 L 98 Nasal Cannula 4 08/28/24 10:45 08/28/24 13:40 08/28/24 13:40 08/28/24 13:40 08/28/24 13:40 08/28/24 13:40 08/28/24 13:40 Oxygen Flow Rate (L/min) 4 Oxygen Delivery Method Nasal Cannula Weight: 195 lb 5.273 oz Body Mass Index (BMI) 30.6 Intake & Output: Intake and Output for Last 24 Hours 08/26/24 08/27/24 08/28/24 23:59 23:59 23:59 Intake Total 360 / 560 940 / 940 240 / 240 Output Total 1750 / 2600 2050 / 2250 1225 / 1225 Balance -1390 / -2040 -1110 / -1310 -985 / -985 Lab / Micro Data 08/28/24 07:05 08/28/24 07:05 Labs: Laboratory Results - last 24 hr 08/27/24 16:28: POC Glucose 197 H 08/27/24 22:15: POC Glucose 249 H 08/28/24 06:33: POC Glucose 145 H 08/28/24 07:05: WBC 10.5, RBC 4.32 L, Hgb 13.2, Hct 40.8, MCV 94.4 H, MCH 30.6, MCHC 32.4, RDW Std Deviation 50.5 H, RDW Coeff of Kip 14.4, Plt Count 192, MPV 11.0, Immature Gran % (Auto) 0.500, Neut % (Auto) 80.6 H, Lymph % (Auto) 7.5 L, [place] % (Auto) 9.5, Eos % (Auto) 1.3, Baso % (Auto) 0.6, Absolute Neuts (auto) 8.4 H, Absolute Lymphs (auto) 0.78 L, Nucleated RBC % 0, PT 14.5, INR 1.1, APTT 30.8, Sodium 140, Potassium 3.7, Chloride 102, Carbon Dioxide 35.0 H, Anion Gap 4 L, BUN 20 H, Creatinine 1.16, Estim Creat Clear Calc 53.95, Est GFR (MDRD) Af Amer 78, Est GFR (MDRD) Non-Af 64, BUN/Creatinine Ratio 17.2, Glucose 132 H, Calcium 9.4 08/28/24 12:00: POC Glucose 170 H Radiography Diagnostic Testing: Radiology Impression Chest CT 08/28/24 07:55 IMPRESSION: Bilateral pleural effusions right greater than left with bibasilar dependent atelectasis and/or early infiltrates. No significant vascular congestion is seen. Coronary artery calcification. One or more dose reduction techniques were used (e.g., Automated exposure control, adjustment of the mA and/or kV according to patient size, use of iterative reconstruction technique). Reading Location: [facility] Physical Exam Const alert, oriented x3, no apparent distress and well nourished General Appearance: cooperative HEENT normocephalic, head/scalp atraumatic and moist oral mucous membranes Eyes PERRL and EOMs intact bilaterally Neck no lymphadenopathy, supple and no JVD Lymph Lymphatic: no lymphadenopathy noted Resp normal respiratory effort, normal air movement and clear to auscultation bilaterally Cardio regular rate, regular rhythm, S1 normal heart sound, S2 normal heart sound and no murmurs GI normal to inspection, nondistended, normoactive bowel sounds, soft to palpation, non-tender and non-distended Extremity normal capillary refill, no clubbing, cyanosis or edema and no calf tenderness General Extremity: no tenderness to palpation of joints or extremities Skin General Skin Exam: no breakdown Neuro CN's II-XII intact bilaterally, no focal motor deficits and no sensory deficits noted Motor Exam: general weakness Psych thought process normal and cooperative Appearance: appropriate Assessment & Plan Assessment/Plan (1) Acute on chronic hypoxic respiratory failure: (2) Acute on chronic diastolic CHF (congestive heart failure), NYHA class 3: (3) Pleural effusion: PLAN: Plan #Acute on chronic heart failure preserved ejection fraction * Patient being diuresed with IV Lasix. Lasix cut down from 40 mg every 8 to 40 mg twice daily. Usually on 4 L of oxygen at home. Was requiring 6 L but now on 5 L. * Chest x-ray did show bilateral pleural effusions. He has had thoracentesis in the past. He has known EF of 58% with stage II diastolic dysfunction. * Will get CT of the chest today to evaluate for possible thoracentesis today. Eliquis has been on hold. * In cumulative negative balance by 5.12 L. #Hypoxia in the setting of chronic respiratory failure due to heart failure * Management as above * #History of A-fib: On metoprolol. Eliquis on hold for possible thoracentesis. #Hypertension: On amlodipine and carvedilol as well as ramipril #Hyperlipidemia: On statin #CAD s/p CABG: On statin, metoprolol and Imdur also on ramipril #Type 2 diabetes mellitus: Metformin on hold. Insulin sliding scale. Accu- Cheks ACHS. DVT prophylaxis: SCDs. Charges/Coding Visit Charges Inpatient E&M: 37040 Subs Hosp L2
--- NOTE | 2024-08-28 14:52 | PN_ITS ---
Subjective Subjective LATE ENTRY NOTE FOR 08/27/2024. Patient was seen and examined yesterday. He was on 6L of oxygen. He felt his breathing was improving. He denied any chest pain, palpitations, dizziness, nausea, vomiting or any other symptoms. Review of systems is otherwise negative. Objective Data Objective Data Vital Signs: Vital Signs Temp Pulse Resp BP Pulse Ox O2 Del Method O2 Flow Rate 97.9 F 70 18 100/53 L 98 Nasal Cannula 4 08/28/24 10:45 08/28/24 13:40 08/28/24 13:40 08/28/24 13:40 08/28/24 13:40 08/28/24 13:40 08/28/24 13:40 Oxygen Flow Rate (L/min) 4 Oxygen Delivery Method Nasal Cannula Weight: 195 lb 5.273 oz Body Mass Index (BMI) 30.6 Intake & Output: Intake and Output for Last 24 Hours 08/26/24 08/27/24 08/28/24 23:59 23:59 23:59 Intake Total 360 / 560 940 / 940 240 / 240 Output Total 1750 / 2600 2050 / 2250 1225 / 1225 Balance -1390 / -2040 -1110 / -1310 -985 / -985 Lab / Micro Data 08/28/24 07:05 08/28/24 07:05 Labs: Laboratory Results - last 24 hr 08/27/24 16:28: POC Glucose 197 H 08/27/24 22:15: POC Glucose 249 H 08/28/24 06:33: POC Glucose 145 H 08/28/24 07:05: WBC 10.5, RBC 4.32 L, Hgb 13.2, Hct 40.8, MCV 94.4 H, MCH 30.6, MCHC 32.4, RDW Std Deviation 50.5 H, RDW Coeff of Kip 14.4, Plt Count 192, MPV 11.0, Immature Gran % (Auto) 0.500, Neut % (Auto) 80.6 H, Lymph % (Auto) 7.5 L, [place] % (Auto) 9.5, Eos % (Auto) 1.3, Baso % (Auto) 0.6, Absolute Neuts (auto) 8.4 H, Absolute Lymphs (auto) 0.78 L, Nucleated RBC % 0, PT 14.5, INR 1.1, APTT 30.8, Sodium 140, Potassium 3.7, Chloride 102, Carbon Dioxide 35.0 H, Anion Gap 4 L, BUN 20 H, Creatinine 1.16, Estim Creat Clear Calc 53.95, Est GFR (MDRD) Af Amer 78, Est GFR (MDRD) Non-Af 64, BUN/Creatinine Ratio 17.2, Glucose 132 H, Calcium 9.4 08/28/24 12:00: POC Glucose 170 H Radiography Diagnostic Testing: Radiology Impression Chest CT 08/28/24 07:55 IMPRESSION: Bilateral pleural effusions right greater than left with bibasilar dependent atelectasis and/or early infiltrates. No significant vascular congestion is seen. Coronary artery calcification. One or more dose reduction techniques were used (e.g., Automated exposure control, adjustment of the mA and/or kV according to patient size, use of iterative reconstruction technique). Reading Location: [facility] Physical Exam Const alert, oriented x3, no apparent distress and well nourished General Appearance: cooperative HEENT normocephalic, head/scalp atraumatic and moist oral mucous membranes Eyes PERRL and EOMs intact bilaterally Neck no lymphadenopathy, supple and no JVD Lymph Lymphatic: no lymphadenopathy noted Resp normal respiratory effort, normal air movement and clear to auscultation bilaterally Cardio regular rate, regular rhythm, S1 normal heart sound, S2 normal heart sound and no murmurs GI normal to inspection, nondistended, normoactive bowel sounds, soft to palpation, non-tender and non-distended Extremity normal capillary refill, no clubbing, cyanosis or edema and no calf tenderness General Extremity: no tenderness to palpation of joints or extremities Skin General Skin Exam: no breakdown Neuro CN's II-XII intact bilaterally, no focal motor deficits and no sensory deficits noted Motor Exam: general weakness Psych thought process normal and cooperative Appearance: appropriate Assessment & Plan Assessment/Plan (1) Acute on chronic hypoxic respiratory failure: (2) Acute on chronic diastolic CHF (congestive heart failure), NYHA class 3: (3) Pleural effusion: PLAN: Plan #Acute on chronic heart failure preserved ejection fraction * Patient being diuresed with IV Lasix. Lasix cut down from 40 mg every 8 to 40 mg twice daily. Usually on 4 L of oxygen at home. on 6L of oxygen. * Chest x-ray did show bilateral pleural effusions. He has had thoracentesis in the past. He has known EF of 58% with stage II diastolic dysfunction. * continue diuresing with IV lasix. * Eliquis on hold. * monitor intake and output. Fluid restriction to 1500cc daily * If oxygen requirements do not come down then we will consider thoracentesis. #Hypoxia in the setting of chronic respiratory failure due to heart failure * Management as above * #History of A-fib: On metoprolol. Eliquis on hold for possible thoracentesis. #Hypertension: On amlodipine and carvedilol as well as ramipril #Hyperlipidemia: On statin #CAD s/p CABG: On statin, metoprolol and Imdur also on ramipril #Type 2 diabetes mellitus: Metformin on hold. Insulin sliding scale. Accu- Cheks ACHS. DVT prophylaxis: SCDs. Charges/Coding Visit Charges Inpatient E&M: 29965 Subs Hosp L2
[2024-08-28 17:50] LABS: Bedside Glucose 205 mg/dL (74-106)
[2024-08-28] MEDS: Atorvastatin Calcium 80 MG Tablet PO (21:50)
[2024-08-28] MEDS: Montelukast 10 MG Tablet PO (21:50)
[2024-08-28] MEDS: 0.9% Saline Lock 10 ML Syringe IV (21:51)
[2024-08-28 21:57] VITALS: BP 131/79; PULSE 71; RESP 16; TEMP 36.5; O2SAT 95
[2024-08-28 22:23] LABS: Bedside Glucose 148 mg/dL (74-106)
[2024-08-29] VITALS (8 sets, daily range): BP systolic 94–143; BP diastolic 61–82; PULSE 70–98; RESP 18–20; TEMP 36–36.7; O2SAT 95–98; BMI 29.9
--- NOTE | 2024-08-29 04:47 | NURSING ---
Pt was found to have 02 off, was confused to place, time, and situation. Pulse ox was 80% once he allowed staff to get a reading. O2 was reapplied. Staff stayed with patient until he was repositioned back in bed.
--- NOTE | 2024-08-29 04:55 | NURSING ---
Dr Apodaca called re pt confusion, agitation, and hypoxia this am . Came to room per request to evaluate.
--- NOTE | 2024-08-29 05:00 | NURSING ---
Son called per pt request informed of pt's confusion this am. States will be in.
--- NOTE | 2024-08-29 05:04 | PCM.HOSP.N ---
Hospitalist Note Patient noted to have accidentally pulled his oxygen off in his sleep. Initially per staff disoriented and mildly agitated. Improved with time; however, he initially had declined to replace his oxygen or take any offer of aid. Patient currently seated at bedside, talking, well-appearing, noting that the staff called his friend Thang to present. Discussed with dry pan charger and Thang is in fact on his way per their request to continue to assist them in calming him. I offered him to lay back in bed and possible food/drink and he declined but currently seated upright at bedside. Staff seated in room with him. Recommended they de-escalate staff as able to de-escalate his agitation but appears to be improving.
[2024-08-29 06:35] LABS: Absolute Lymphocyte Count 0.81 X10^3/uL (0.83-4.51); Absolute Neutrophil Count 7.5 X10^3/uL (2.0-7.7); Basophil# 0.06 X10^3/uL; Basophil% 0.6 % (0-1); Eosinophil# 0.18 X10^3/uL; Eosinophils% 1.9 % (0-5); Hematocrit 39.6 % (40-54); Hemoglobin 12.6 g/dL (13.0-16.5); Lymphocyte # 0.81 X10^3/ul (0.83-4.51); Lymphocyte % 8.5 % (19-41); Mean Corp Hgb Conc 31.8 g/dL (32-36); Mean Corpuscular Hgb 29.8 pg (27.0-32.0); Mean Corpuscular Volume 93.6 fL (80-94); Mean Platelet Vol. 10.6 fl (6.2-12.0); Monocyte# 0.94 X10^3/uL; Monocyte% 9.9 % (0-10); NRBC Flagged by Analyzer 0 % (0-5); Neutrophil % 78.7 % (47-70); Platelet Count 193 K/mm3 (150-450); RBC Distribution Width CV 14.3 % (11.6-14.6); RBC Distribution Width SD 49.1 fl (35.1-43.9); Red Blood Count 4.23 M/mm3 (4.6-6.2); White Blood Count 9.5 K/mm3 (4.4-11.0)
[2024-08-29 06:47] LABS: Bedside Glucose 131 mg/dL (74-106)
[2024-08-29 07:18] LABS: Anion Gap 6 (5-15); BUN 20 mg/dL (7-18); BUN/Creat Ratio 17.9 RATIO (10-20); Calcium,Total 8.8 mg/dL (8.5-10.1); Chloride 102 mmol/L (98-107); Creatinine, Serum 1.12 mg/dL (0.70-1.30); EST Glomerular Filtration Rate 67 mL/min (>60); Est Glom Filt Rate - Afr Amer 81 mL/min (>60); Estimated Creatinine Clearance 55.28 ml/min; Glucose 137 mg/dL (74-106); Potassium 3.5 mmol/L (3.5-5.1); Sodium Level 140 mmol/L (136-145)
[2024-08-29] MEDS: Ramipril 10 MG Capsule PO ×2 (09:51→20:07)
[2024-08-29] MEDS: Carvedilol 25 MG Tablet PO ×2 (09:51→17:17)
[2024-08-29] MEDS: amLODIPine 5 MG Tablet PO (09:51)
[2024-08-29] MEDS: Furosemide 40 MG/4 ML Vial IV ×2 (09:51→17:18)
[2024-08-29] MEDS: Isosorbide Mononitrate 30 MG Tablet PO ×2 (09:51→20:29)
[2024-08-29] MEDS: Insulin Lispro 100 UNIT/ML INSULN.PEN SC ×3 (12:20→20:08)
[2024-08-29 12:41] LABS: Bedside Glucose 193 mg/dL (74-106)
[2024-08-29] MEDS: Nystatin Powder 15gm Bottle 1 APPLIC TOPICAL ×2 (13:48→20:29)
[2024-08-29 16:43] LABS: Bedside Glucose 157 mg/dL (74-106)
--- NOTE | 2024-08-29 16:51 | PCM.PROGNOTE ---
Subjective Subjective Patient seen and examined. He was alert and had no complaints. He was on 5 L of oxygen at time of review this morning but subsequently weaned down to 3 L of oxygen. He denied any coughing or chest pain, palpitations, dizziness, nausea or vomiting. Of note patient's oxygen fell off during the night and he became agitated, thought to be due to hypoxia. His son had to be called in to calm him down. Patient subsequently improved. Review of systems otherwise negative. Objective Data Objective Data Vital Signs: Vital Signs Temp Pulse Resp BP Pulse Ox O2 Del Method O2 Flow Rate 98.0 F 74 18 106/76 95 Nasal Cannula 3 08/29/24 10:00 08/29/24 10:00 08/29/24 10:00 08/29/24 10:00 08/29/24 13:54 08/29/24 13:54 08/29/24 13:54 Oxygen Flow Rate (L/min) 3 Oxygen Delivery Method Nasal Cannula Weight: 190 lb 14.725 oz Body Mass Index (BMI) 29.9 Intake & Output: Intake and Output for Last 24 Hours 08/27/24 08/28/24 08/29/24 23:59 23:59 23:59 Intake Total 940 / 940 480 / 480 240 / 240 Output Total 2050 / 2250 1875 / 1875 750 / 750 Balance -1110 / -1310 -1395 / -1395 -510 / -510 Lab / Micro Data 08/29/24 06:17 08/29/24 06:17 Labs: Laboratory Results - last 24 hr 08/28/24 16:51: POC Glucose 205 H 08/28/24 21:53: POC Glucose 148 H 08/29/24 06:17: WBC 9.5, RBC 4.23 L, Hgb 12.6 L, Hct 39.6 L, MCV 93.6, MCH 29.8, MCHC 31.8 L, RDW Std Deviation 49.1 H, RDW Coeff of Kip 14.3, Plt Count 193, MPV 10.6, Immature Gran % (Auto) 0.400, Neut % (Auto) 78.7 H, Lymph % (Auto) 8.5 L, [place] % (Auto) 9.9, Eos % (Auto) 1.9, Baso % (Auto) 0.6, Absolute Neuts (auto) 7.5, Absolute Lymphs (auto) 0.81 L, Nucleated RBC % 0, Sodium 140, Potassium 3.5, Chloride 102, Carbon Dioxide 32.0, Anion Gap 6, BUN 20 H, Creatinine 1.12, Estim Creat Clear Calc 55.28, Est GFR (MDRD) Af Amer 81, Est GFR (MDRD) Non-Af 67, BUN/Creatinine Ratio 17.9, Glucose 137 H, Calcium 8.8 08/29/24 06:18: POC Glucose 131 H 08/29/24 12:19: POC Glucose 193 H 08/29/24 16:22: POC Glucose 157 H Radiography Diagnostic Testing: Radiology Impression Chest Ultrasound 08/28/24 11:46 IMPRESSION: Small bilateral pleural effusions, greatest on the right. No thoracentesis was performed. Reading Location: [facility] Physical Exam Const alert, oriented x3, no apparent distress and well nourished General Appearance: cooperative HEENT normocephalic, head/scalp atraumatic and moist oral mucous membranes Eyes PERRL and EOMs intact bilaterally Neck no lymphadenopathy, supple and no JVD Lymph Lymphatic: no lymphadenopathy noted Resp Resp Narrative: moderately diminished breath sounds bibasally, no wheezes or crackles. On 3L of oxygen by nasal canula Cardio regular rate, regular rhythm, S1 normal heart sound, S2 normal heart sound and no murmurs GI normal to inspection, nondistended, normoactive bowel sounds, soft to palpation, non-tender and non-distended Extremity normal capillary refill, no clubbing, cyanosis or edema and no calf tenderness General Extremity: no tenderness to palpation of joints or extremities Skin General Skin Exam: no breakdown Neuro CN's II-XII intact bilaterally, no focal motor deficits and no sensory deficits noted Motor Exam: general weakness Psych thought process normal and cooperative Appearance: appropriate Assessment & Plan Assessment/Plan (1) Acute on chronic hypoxic respiratory failure: (2) Acute on chronic diastolic CHF (congestive heart failure), NYHA class 3: (3) Pleural effusion: PLAN: Plan #Acute on chronic heart failure preserved ejection fraction Patient being diuresed with IV Lasix 40mg bid. on 3L today. Chest x-ray did show bilateral pleural effusions. He has had thoracentesis in the past. He has known EF of 58% with stage II diastolic dysfunction. continue diuresing with IV lasix. Eliquis on hold. monitor intake and output. Fluid restriction to 1500cc daily Thoracentesis was ordered but there was not enough pleural fluid to drain per ultrasound. #Hypoxia in the setting of chronic respiratory failure due to heart failure Management as above #History of A-fib: On metoprolol. Eliquis on hold for possible thoracentesis. #Hypertension: On amlodipine and carvedilol as well as ramipril #Hyperlipidemia: On statin #CAD s/p CABG: On statin, metoprolol and Imdur also on ramipril #Type 2 diabetes mellitus: Metformin on hold. Insulin sliding scale. Accu-Cheks ACHS. DVT prophylaxis: SCDs. Disposition: Anticipate DC over the next 24 to 48 hours. Charges/Coding Visit Charges Inpatient E&M: 71257 Subs Hosp L2
[2024-08-29] MEDS: Atorvastatin Calcium 80 MG Tablet PO (20:29)
[2024-08-29] MEDS: Montelukast 10 MG Tablet PO (20:29)
[2024-08-29 20:34] LABS: Bedside Glucose 174 mg/dL (74-106)
[2024-08-30] VITALS (7 sets, daily range): BP systolic 112–139; BP diastolic 71–90; PULSE 70; RESP 18–20; TEMP 36.6–36.8; O2SAT 3–96; BMI 30.3
--- NOTE | 2024-08-30 02:26 | NURSING ---
@ approximately 0210, pt set of bed exit alarm, he was at the end of the bed and very confused, he wanted to go home, he was mostly cooperative, we assisted him to chair and placed chair alarm on-pox was 90% on 4L n/c which was in nostrils upon nurse arrival to room-explained to pt that he was brought into [facility] for difficulty breathing, he asked where this hospital is located and why they brought me here if I live in [place]-pt reassured that it was after midnight/very early breastfeeding care specialist and that we would call his son in am if that was ok and he could go back to sleep in chair-pt urinal moved beside chair on trash can how pt requested-fluid to drink in reach-call light in reach and chair alarm intact under pt and turned on
[2024-08-30 07:38] LABS: Absolute Neutrophil Count 9.1 X10^3/uL (2.0-7.7); Basophil# 0.05 X10^3/uL; Basophil% 0.4 % (0-1); Eosinophils% 1.8 % (0-5); Hematocrit 39.1 % (40-54); Hemoglobin 12.4 g/dL (13.0-16.5); Lymphocyte % 7.1 % (19-41); Mean Corp Hgb Conc 31.7 g/dL (32-36); Mean Corpuscular Hgb 29.9 pg (27.0-32.0); Mean Corpuscular Volume 94.2 fL (80-94); Mean Platelet Vol. 11.2 fl (6.2-12.0); Monocyte# 1.09 X10^3/uL; Monocyte% 9.6 % (0-10); NRBC Flagged by Analyzer 0 % (0-5); Neutrophil # 9.13 X10^3/uL (2.7-7.7); Neutrophil % 80.7 % (47-70); Platelet Count 182 K/mm3 (150-450); RBC Distribution Width CV 14.2 % (11.6-14.6); RBC Distribution Width SD 49.3 fl (35.1-43.9); Red Blood Count 4.15 M/mm3 (4.6-6.2); White Blood Count 11.3 K/mm3 (4.4-11.0)
[2024-08-30 08:13] LABS: Anion Gap 7 (5-15); BUN 19 mg/dL (7-18); BUN/Creat Ratio 18.3 RATIO (10-20); Calcium,Total 8.7 mg/dL (8.5-10.1); Chloride 102 mmol/L (98-107); Creatinine, Serum 1.04 mg/dL (0.70-1.30); EST Glomerular Filtration Rate 73 mL/min (>60); Est Glom Filt Rate - Afr Amer 88 mL/min (>60); Estimated Creatinine Clearance 59.95 ml/min; Glucose 159 mg/dL (74-106); Potassium 3.4 mmol/L (3.5-5.1); Sodium Level 139 mmol/L (136-145)
[2024-08-30] MEDS: Ramipril 10 MG Capsule PO ×2 (08:40→21:22)
[2024-08-30] MEDS: amLODIPine 5 MG Tablet PO (08:40)
[2024-08-30] MEDS: Furosemide 40 MG/4 ML Vial IV (08:41)
[2024-08-30] MEDS: Isosorbide Mononitrate 30 MG Tablet PO ×2 (08:41→21:22)
[2024-08-30] MEDS: 0.9% Saline Lock 10 ML Syringe IV (08:41)
[2024-08-30] MEDS: Carvedilol 25 MG Tablet PO ×2 (08:41→16:53)
[2024-08-30 09:53] LABS: Bedside Glucose 142 mg/dL (74-106)
--- NOTE | 2024-08-30 11:39 | CASEMGMT ---
SALVADOR MENA received word pt son had questions about HHC. SALVADOR MENA into pt room, son just left. [facility], he is agreeable to this plan. SALVADOR MENA called son, Thang, he asked what he needs to do to get HHC set up, let him know it is already taken care of and the HHC agency phone number will be on his DC paperwork. He states he is able to get a portable O2 tank to take pt home with. Denies additional questions at this time.
[2024-08-30] MEDS: Insulin Lispro 100 UNIT/ML INSULN.PEN SC ×3 (11:52→21:22)
[2024-08-30 12:12] LABS: Bedside Glucose 191 mg/dL (74-106)
--- NOTE | 2024-08-30 15:36 | PN_ITS ---
Subjective Subjective Patient seen and examined. He had no complaints today and felt better. He feels his breathing had improved. He was down to 3 L of oxygen which is around his baseline. Plan was to discharge him today but he had a walking pulse ox and patient desaturated and required 6 L of oxygen. He has otherwise remained hemodynamically stable. Objective Data Objective Data Vital Signs: Vital Signs Temp Pulse Resp BP Pulse Ox O2 Del Method O2 Flow Rate 97.9 F 70 20 H 112/71 95 Nasal Cannula 2 08/30/24 14:50 08/30/24 14:50 08/30/24 14:50 08/30/24 14:50 08/30/24 14:50 08/30/24 14:50 08/30/24 14:00 Oxygen Flow Rate (L/min) 2 Oxygen Delivery Method Nasal Cannula Weight: 193 lb 12.581 oz Body Mass Index (BMI) 30.3 Intake & Output: Intake and Output for Last 24 Hours 08/28/24 08/29/24 08/30/24 23:59 23:59 23:59 Intake Total 480 / 480 730 / 730 560 / 560 Output Total 1875 / 1875 1650 / 1650 550 / 550 Balance -1395 / -1395 -920 / -920 Lab / Micro Data 08/30/24 06:10 08/30/24 06:10 Labs: Laboratory Results - last 24 hr 08/29/24 16:22: POC Glucose 157 H 08/29/24 20:06: POC Glucose 174 H 08/30/24 06:10: WBC 11.3 H, RBC 4.15 L, Hgb 12.4 L, Hct 39.1 L, MCV 94.2 H, MCH 29.9, MCHC 31.7 L, RDW Std Deviation 49.3 H, RDW Coeff of Kip 14.2, Plt Count 182, MPV 11.2, Immature Gran % (Auto) 0.400, Neut % (Auto) 80.7 H, Lymph % (Auto) 7.1 L, [place] % (Auto) 9.6, Eos % (Auto) 1.8, Baso % (Auto) 0.4, Absolute Neuts (auto) 9.1 H, Absolute Lymphs (auto) 0.80 L, Nucleated RBC % 0, Sodium 139, Potassium 3.4 L, Chloride 102, Carbon Dioxide 30.0, Anion Gap 7, BUN 19 H, Creatinine 1.04, Estim Creat Clear Calc 59.95, Est GFR (MDRD) Af Amer 88, Est GFR (MDRD) Non-Af 73, BUN/Creatinine Ratio 18.3, Glucose 159 H, Calcium 8.7 08/30/24 08:32: POC Glucose 142 H 08/30/24 11:51: POC Glucose 191 H Physical Exam Const alert, oriented x3 and no apparent distress General Appearance: cooperative HEENT normocephalic, head/scalp atraumatic and moist oral mucous membranes Eyes PERRL and EOMs intact bilaterally Neck no lymphadenopathy, supple and no JVD Lymph Lymphatic: no lymphadenopathy noted Resp normal respiratory effort, normal air movement and clear to auscultation bilaterally Resp Narrative: moderately diminished breath sounds bibasally, no wheezes or crackles. On 3L of oxygen by nasal canula Cardio regular rate, regular rhythm, S1 normal heart sound, S2 normal heart sound and no murmurs GI normal to inspection, nondistended, normoactive bowel sounds, soft to palpation, non-tender and non-distended Extremity normal capillary refill, no clubbing, cyanosis or edema and no calf tenderness General Extremity: no tenderness to palpation of joints or extremities Skin General Skin Exam: no breakdown Neuro CN's II-XII intact bilaterally, no focal motor deficits and no sensory deficits noted Motor Exam: general weakness Psych thought process normal and cooperative Appearance: appropriate Assessment & Plan Assessment/Plan (1) Acute on chronic hypoxic respiratory failure: (2) Acute on chronic diastolic CHF (congestive heart failure), NYHA class 3: (3) Pleural effusion: PLAN: Plan #Acute on chronic heart failure preserved ejection fraction * Patient being diuresed with IV Lasix 40mg bid.remains on 3L today * Chest x-ray did show bilateral pleural effusions. He has had thoracentesis in the past. He has known EF of 58% with stage II diastolic dysfunction. * continue diuresing with IV lasix. * Eliquis on hold. * monitor intake and output. Fluid restriction to 1500cc daily * Thoracentesis was ordered but there was not enough pleural fluid to drain per ultrasound. * He had walking pulse ox today and showed that he required 6 L of oxygen. Therefore continue titrating oxygen. Switch Lasix to p.o. #Hypokalemia: K is 3.4. Will replace and trend. #Hypoxia in the setting of chronic respiratory failure due to heart failure * Management as above * #History of A-fib: On metoprolol. Eliquis on hold for possible thoracentesis. #Hypertension: On amlodipine and carvedilol as well as ramipril #Hyperlipidemia: On statin #CAD s/p CABG: On statin, metoprolol and Imdur also on ramipril #Type 2 diabetes mellitus: Metformin on hold. Insulin sliding scale. Accu- Cheks ACHS. DVT prophylaxis: SCDs. Disposition: * Plan was to discharge today but patient required 6 L of oxygen with ambulation. * Will therefore keep overnight and to have walking pulse ox again tomorrow and then for potential discharge tomorrow. Charges/Coding Visit Charges Inpatient E&M: 49893 Subs Hosp L3
[2024-08-30] MEDS: Furosemide 40 MG Tablet PO (16:53)
[2024-08-30 17:22] LABS: Bedside Glucose 190 mg/dL (74-106)
[2024-08-30] MEDS: Potassium Chloride Oral Tablet 20 MEQ 40 MEQ PO (18:06)
[2024-08-30] MEDS: APIXABAN 5 MG TABLET PO (21:22)
[2024-08-30] MEDS: Atorvastatin Calcium 80 MG Tablet PO (21:22)
[2024-08-30] MEDS: Montelukast 10 MG Tablet PO (21:22)
[2024-08-30 21:45] LABS: Bedside Glucose 189 mg/dL (74-106)
[2024-08-31 03:15] VITALS: BP 130/72; PULSE 75; RESP 18; TEMP 36.6; O2SAT 95
[2024-08-31 03:34] LABS: Absolute Lymphocyte Count 0.66 X10^3/uL (0.83-4.51); Absolute Neutrophil Count 8.1 X10^3/uL (2.0-7.7); Basophil# 0.06 X10^3/uL; Basophil% 0.6 % (0-1); Hematocrit 38.3 % (40-54); Hemoglobin 12.3 g/dL (13.0-16.5); Lymphocyte # 0.66 X10^3/ul (0.83-4.51); Lymphocyte % 6.6 % (19-41); Mean Corp Hgb Conc 32.1 g/dL (32-36); Mean Corpuscular Hgb 29.9 pg (27.0-32.0); Mean Platelet Vol. 10.5 fl (6.2-12.0); Monocyte# 1.04 X10^3/uL; Monocyte% 10.3 % (0-10); NRBC Flagged by Analyzer 0 % (0-5); Neutrophil # 8.06 X10^3/uL (2.7-7.7); Platelet Count 200 K/mm3 (150-450); RBC Distribution Width CV 14.3 % (11.6-14.6); Red Blood Count 4.12 M/mm3 (4.6-6.2); White Blood Count 10.1 K/mm3 (4.4-11.0)
[2024-08-31 03:53] LABS: Anion Gap 7 (5-15); BUN 20 mg/dL (7-18); BUN/Creat Ratio 18.7 RATIO (10-20); Chloride 103 mmol/L (98-107); Creatinine, Serum 1.07 mg/dL (0.70-1.30); EST Glomerular Filtration Rate 71 mL/min (>60); Est Glom Filt Rate - Afr Amer 85 mL/min (>60); Estimated Creatinine Clearance 58.27 ml/min; Glucose 172 mg/dL (74-106); Potassium 3.6 mmol/L (3.5-5.1); Sodium Level 140 mmol/L (136-145)
[2024-08-31 04:19] VITALS: BMI 29.7
[2024-08-31] MEDS: Acetaminophen 325 MG Tablet 650 MG PO (06:48)
[2024-08-31 06:53] LABS: Bedside Glucose 147 mg/dL (74-106)
[2024-08-31] MEDS: Ramipril 10 MG Capsule PO ×2 (10:08→22:14)
[2024-08-31] MEDS: Carvedilol 25 MG Tablet PO ×2 (10:08→16:52)
[2024-08-31] MEDS: Isosorbide Mononitrate 30 MG Tablet PO ×2 (10:08→22:15)
[2024-08-31] MEDS: APIXABAN 5 MG TABLET PO ×2 (10:08→22:15)
[2024-08-31] MEDS: Furosemide 40 MG Tablet PO ×2 (10:08→16:53)
[2024-08-31 10:09] VITALS: BP 108/54; PULSE 70; RESP 18; TEMP 36.4; O2SAT 97
--- NOTE | 2024-08-31 10:14 | VDLE_ITS ---
Reason For Study Reason For Study: Right leg pain RIGHT LEFT GSV is normal. CFV is compressible, spontaneous, phasic, competent, CFV is compressible, spontaneous, phasic, competent and demonstrates normal augmentation. and demonstrates normal augmentation. FV is compressible, spontaneous, phasic, competent and demonstrates normal augmentation. POP V is compressible, spontaneous, phasic, competent and demonstrates normal augmentation. T/P Trunk is compressible. PTV is compressible. RT PerV is compressible. Procedure This is a venous duplex using B-mode, color flow and spectral Doppler. Exam performed portable in patient room. A preliminary report was called and/or faxed to [facility]PER[facility]. VL/Venous Duplex US, Unilateral Interpretation Summary Deep veins of the right lower extremity are patent and compressible segmentally . There is no evidence of right lower extremity deep vein thrombosis. Valvular competence appears intact within the p roximal deep venous system on the right . The right great saphenous vein appears patent and compressible segmentally. The left common femoral vein is patent and compressible . Ordering Physician: Aylin Manzo Referring Physician: Fito Velez Performed By: [place] RVT
--- NOTE | 2024-08-31 10:20 | RAD_ITS ---
PROCEDURE: FOOT MIN 3 VIEWS REASON FOR EXAM: Right foot pain TECHNIQUE: Three views of the right foot COMPARISON: None. FINDINGS: RIGHT FOOT: No fracture. Calcaneal spurring. Mild osteopenia. Normal alignment. Soft tissues are unremarkable. RAD/Foot min 3 Views IMPRESSION: Degenerative changes with no acute osseous abnormality in the right foot Reading Location: [facility]
[2024-08-31] MEDS: Ampicillin/Sulbactam 3 GM in 0.9% Normal Saline (100mL MB+) 100 ML IV ×2 (11:31→18:08)
[2024-08-31] MEDS: 0.9% Saline Lock 10 ML Syringe IV ×2 (11:32→18:08)
[2024-08-31] MEDS: Insulin Lispro 100 UNIT/ML INSULN.PEN SC ×2 (11:34→22:15)
[2024-08-31 12:28] LABS: Bedside Glucose 234 mg/dL (74-106)
--- NOTE | 2024-08-31 13:13 | PN_ITS ---
Subjective Subjective Patient seen and examined. His son was by his bedside. He complained of pain in his right foot and swelling of his right leg. He also states he is noticed some redness on his right barnett. Review of symptoms otherwise negative. He is down to 2 L. Objective Data Objective Data Vital Signs: Vital Signs Temp Pulse Resp BP Pulse Ox O2 Del Method O2 Flow Rate 97.5 F L 70 18 108/54 L 97 Nasal Cannula 2 08/31/24 10:09 08/31/24 10:09 08/31/24 10:09 08/31/24 10:09 08/31/24 10:09 08/31/24 10:09 08/31/24 10:09 Oxygen Flow Rate (L/min) 2 Oxygen Delivery Method Nasal Cannula Weight: 189 lb 9.561 oz Body Mass Index (BMI) 29.7 Intake & Output: Intake and Output for Last 24 Hours 08/29/24 08/30/24 08/31/24 23:59 23:59 23:59 Intake Total 730 / 730 780 / 930 262 / 262 Output Total 1650 / 1650 650 / 850 600 / 600 Balance -920 / -920 130 / 80 -338 / -338 Lab / Micro Data 08/31/24 03:23 08/31/24 03:23 Labs: Laboratory Results - last 24 hr 08/30/24 16:50: POC Glucose 190 H 08/30/24 21:20: POC Glucose 189 H 08/31/24 03:23: WBC 10.1, RBC 4.12 L, Hgb 12.3 L, Hct 38.3 L, MCV 93.0, MCH 29.9, MCHC 32.1, RDW Std Deviation 49.0 H, RDW Coeff of Kip 14.3, Plt Count 200, MPV 10.5, Immature Gran % (Auto) 0.500, Neut % (Auto) 80.0 H, Lymph % (Auto) 6.6 L, [place] % (Auto) 10.3 H, Eos % (Auto) 2.0, Baso % (Auto) 0.6, Absolute Neuts (auto) 8.1 H, Absolute Lymphs (auto) 0.66 L, Nucleated RBC % 0, Sodium 140, Potassium 3.6, Chloride 103, Carbon Dioxide 30.0, Anion Gap 7, BUN 20 H, Creatinine 1.07, Estim Creat Clear Calc 58.27, Est GFR (MDRD) Af Amer 85, Est GFR (MDRD) Non-Af 71, BUN/Creatinine Ratio 18.7, Glucose 172 H, Calcium 9.0 08/31/24 06:34: POC Glucose 147 H 08/31/24 11:34: POC Glucose 234 H Radiography Diagnostic Testing: Radiology Impression Foot X-Ray 08/31/24 10:20 IMPRESSION: Degenerative changes with no acute osseous abnormality in the right foot Reading Location: [facility] Physical Exam Const alert, oriented x3 and no apparent distress General Appearance: cooperative HEENT normocephalic, head/scalp atraumatic and moist oral mucous membranes Eyes PERRL and EOMs intact bilaterally Neck no lymphadenopathy, supple and no JVD Lymph Lymphatic: no lymphadenopathy noted Resp normal respiratory effort, normal air movement and clear to auscultation bilaterally Resp Narrative: moderately diminished breath sounds bibasally, no wheezes or crackles. On 2 L of oxygen by nasal canula Cardio regular rate, regular rhythm, S1 normal heart sound, S2 normal heart sound and no murmurs GI normal to inspection, nondistended, normoactive bowel sounds, soft to palpation, non-tender and non-distended Extremity Extremity Narrative: erythema and a single pustule over the right barnett, with swelling of the left foot and tenderness with palpation over the dorsum of the right foot. General Extremity: no tenderness to palpation of joints or extremities Skin Skin Narrative: as under extremities Neuro CN's II-XII intact bilaterally, no focal motor deficits and no sensory deficits noted Motor Exam: general weakness Psych thought process normal and cooperative Appearance: appropriate Assessment & Plan Assessment/Plan (1) Acute on chronic hypoxic respiratory failure: (2) Acute on chronic diastolic CHF (congestive heart failure), NYHA class 3: (3) Pleural effusion: PLAN: Plan #Acute on chronic heart failure preserved ejection fraction * down to 2L * Chest x-ray did show bilateral pleural effusions. He has had thoracentesis in the past. He has known EF of 58% with stage II diastolic dysfunction. * IV lasix switched to PO lasix 40mg bid. * Eliquis on hold for thoracentesis. * monitor intake and output. Fluid restriction to 1500cc daily * Thoracentesis was ordered but there was not enough pleural fluid to drain per ultrasound. Will resume eliquis. * #RIght foot cellulitis * Patient's foot is red and warm today. That extends up to his admission. This is a rapid development from yesterday. Patient states he is unable to weight- bear. * Will get duplex of the right lower extremity and xray of the right foot. * start on IV unasyn * #Hypokalemia: K is 3.4. Will replace and trend. #Hypoxia in the setting of chronic respiratory failure due to heart failure * Management as above * #History of A-fib: On metoprolol. Eliquis on hold for possible thoracentesis. #Hypertension: On amlodipine and carvedilol as well as ramipril #Hyperlipidemia: On statin #CAD s/p CABG: On statin, metoprolol and Imdur also on ramipril #Type 2 diabetes mellitus: Metformin on hold. Insulin sliding scale. Accu- Cheks ACHS. DVT prophylaxis: SCDs. Disposition: * for dc home when medically stable. Charges/Coding Visit Charges Inpatient E&M: 65211 Subs Hosp L2
[2024-08-31] MEDS: Nystatin Powder 15gm Bottle 1 APPLIC TOPICAL ×2 (14:58→22:15)
[2024-08-31 16:06] VITALS: BP 118/66; PULSE 70; RESP 16; TEMP 36.6; O2SAT 95
[2024-08-31 17:32] LABS: Bedside Glucose 146 mg/dL (74-106)
[2024-08-31] MEDS: oxyCODONE 5 MG Tablet PO (19:01)
[2024-08-31 22:05] VITALS: BP 128/72; PULSE 70; RESP 18; TEMP 36.7; O2SAT 94
[2024-08-31] MEDS: Montelukast 10 MG Tablet PO (22:15)
[2024-08-31] MEDS: Atorvastatin Calcium 80 MG Tablet PO (22:15)
[2024-08-31 23:17] LABS: Bedside Glucose 167 mg/dL (74-106)
[2024-09-01] VITALS (12 sets, daily range): BP systolic 94–136; BP diastolic 57–73; PULSE 70–71; RESP 16–19; TEMP 36.5–37.1; O2SAT 92–96; BMI 29.7
[2024-09-01] MEDS: Ampicillin/Sulbactam 3 GM in 0.9% Normal Saline (100mL MB+) 100 ML IV ×4 (00:27→17:26)
[2024-09-01] MEDS: oxyCODONE 5 MG Tablet PO ×2 (03:42→16:51)
[2024-09-01 06:47] LABS: Absolute Lymphocyte Count 0.72 X10^3/uL (0.83-4.51); Absolute Neutrophil Count 7.3 X10^3/uL (2.0-7.7); Basophil# 0.05 X10^3/uL; Basophil% 0.5 % (0-1); Eosinophil# 0.21 X10^3/uL; Eosinophils% 2.2 % (0-5); Hematocrit 36.3 % (40-54); Hemoglobin 11.6 g/dL (13.0-16.5); Lymphocyte # 0.72 X10^3/ul (0.83-4.51); Lymphocyte % 7.7 % (19-41); Mean Corpuscular Hgb 30.4 pg (27.0-32.0); Mean Corpuscular Volume 95.3 fL (80-94); Mean Platelet Vol. 11.3 fl (6.2-12.0); Monocyte# 1.01 X10^3/uL; Monocyte% 10.8 % (0-10); NRBC Flagged by Analyzer 0 % (0-5); Neutrophil # 7.34 X10^3/uL (2.7-7.7); Neutrophil % 78.3 % (47-70); Platelet Count 174 K/mm3 (150-450); RBC Distribution Width CV 14.3 % (11.6-14.6); RBC Distribution Width SD 50.3 fl (35.1-43.9); Red Blood Count 3.81 M/mm3 (4.6-6.2); White Blood Count 9.4 K/mm3 (4.4-11.0)
[2024-09-01 06:59] LABS: Bedside Glucose 142 mg/dL (74-106)
[2024-09-01 07:21] LABS: Anion Gap 5 (5-15); BUN 18 mg/dL (7-18); BUN/Creat Ratio 16.7 RATIO (10-20); Calcium,Total 8.8 mg/dL (8.5-10.1); Chloride 104 mmol/L (98-107); Creatinine, Serum 1.08 mg/dL (0.70-1.30); EST Glomerular Filtration Rate 70 mL/min (>60); Est Glom Filt Rate - Afr Amer 84 mL/min (>60); Estimated Creatinine Clearance 57.21 ml/min; Glucose 150 mg/dL (74-106); Potassium 3.4 mmol/L (3.5-5.1); Sodium Level 140 mmol/L (136-145)
[2024-09-01] MEDS: Isosorbide Mononitrate 30 MG Tablet PO ×2 (08:06→21:18)
[2024-09-01] MEDS: Ramipril 10 MG Capsule PO ×2 (08:06→21:17)
[2024-09-01] MEDS: Furosemide 40 MG Tablet PO (08:06)
[2024-09-01] MEDS: Carvedilol 25 MG Tablet PO ×2 (08:07→16:52)
[2024-09-01] MEDS: amLODIPine 5 MG Tablet PO (08:07)
[2024-09-01] MEDS: APIXABAN 5 MG TABLET PO ×2 (08:07→21:17)
[2024-09-01] MEDS: 0.9% Saline Lock 10 ML Syringe IV ×2 (08:09→15:48)
--- NOTE | 2024-09-01 10:21 | NURSING ---
therapy walking pt. pt is 95% on 6L NC
[2024-09-01] MEDS: Insulin Lispro 100 UNIT/ML INSULN.PEN SC ×2 (11:29→21:17)
[2024-09-01] MEDS: 0.9% Normal Saline (100mL Bag) 100 ML 15 ML IV (11:32)
--- NOTE | 2024-09-01 11:40 | CASEMGMT ---
Discharge Planning Call rec'd from Dede ([phone]) @ [facility]. Acceptance confirmed. Angelika Mcnamara DC Planning Asst.
[2024-09-01 11:54] LABS: Bedside Glucose 214 mg/dL (74-106)
[2024-09-01] MEDS: Furosemide 20 MG/2 ML VIAL IV ×2 (15:48→21:21)
[2024-09-01] MEDS: Acetaminophen 500 MG Tablet 1000 MG PO ×2 (15:48→21:19)
--- NOTE | 2024-09-01 16:00 | NURSING ---
son and female at bedside. son states that pt was having dizziness for couple months at home, that is not a new concern for him.
[2024-09-01] MEDS: guaiFENesin 1,200 MG Tablet 1200 MG PO ×2 (16:52→21:19)
[2024-09-01 17:18] LABS: Bedside Glucose 134 mg/dL (74-106)
--- NOTE | 2024-09-01 18:37 | PN.HOSP_ITS ---
Reason for Visit Reason for Visit: Diagnoses Acute on chronic diastolic (congestive) heart failure (08/25/24) Pleural effusion, not elsewhere classified (08/25/24) Acute and chronic respiratory failure with hypoxia (08/25/24) Subjective Subjective Patient was seen and examined today, he is still having quite a bit of swelling in his right lower leg and foot. Foot does not appear to be intensely reddened today. I have elected to continue the patient on IV antibiotics and I have elected to place the patient back on IV diuresis. Patient also uses an aerosol machine at home, I have placed him on aerosol treatments. Objective Data Objective Data Vital Signs: Vital Signs Temp Pulse Resp BP Pulse Ox O2 Del Method O2 Flow Rate 98.1 F 70 18 136/73 H 96 Nasal Cannula 3 09/01/24 14:00 09/01/24 16:50 09/01/24 14:00 09/01/24 16:50 09/01/24 16:50 09/01/24 16:50 09/01/24 16:50 Oxygen Flow Rate (L/min) 3 Oxygen Delivery Method Nasal Cannula Weight: 86.2 kg Body Mass Index (BMI) 29.7 Intake & Output: Intake and Output for Last 24 Hours 08/30/24 08/31/24 09/01/24 23:59 23:59 23:59 Intake Total 780 / 930 724 / 874 690.50 / 690.50 Output Total 650 / 850 1180 / 1630 955 / 955 Balance 130 / 80 -456 / -756 -264.50 / -264.50 Lab / Micro Data 09/02/24 05:12 09/02/24 05:12 Labs: Laboratory Results - last 24 hr 08/31/24 22:14: POC Glucose 167 H 09/01/24 05:49: WBC 9.4, RBC 3.81 L, Hgb 11.6 L, Hct 36.3 L, MCV 95.3 H, MCH 30.4, MCHC 32.0, RDW Std Deviation 50.3 H, RDW Coeff of Kip 14.3, Plt Count 174, MPV 11.3, Immature Gran % (Auto) 0.500, Neut % (Auto) 78.3 H, Lymph % (Auto) 7.7 L, [place] % (Auto) 10.8 H, Eos % (Auto) 2.2, Baso % (Auto) 0.5, Absolute Neuts (auto) 7.3, Absolute Lymphs (auto) 0.72 L, Nucleated RBC % 0, Sodium 140, P otassium 3.4 L, Chloride 104, Carbon Dioxide 31.0, Anion Gap 5, BUN 18, Creatinine 1.08, Estim Creat Clear Calc 57.21, Est GFR (MDRD) Af Amer 84, Est GFR (MDRD) Non-Af 70, BUN/Creatinine Ratio 16.7, Glucose 150 H, Calcium 8.8 09/01/24 06:20: POC Glucose 142 H 09/01/24 11:28: POC Glucose 214 H 09/01/24 16:56: POC Glucose 134 H Radiography Diagnostic Testing: Radiology Impression Venous Doppler Study 08/31/24 10:14 Interpretation Summary Deep veins of the right lower extremity are patent and compressible segmentally. There is no evidence of right lower extremity deep vein thrombosis. Valvular competence appears intact within the proximal deep venous system on the right . The right great saphenous vein appears patent and compressible segmentally. The left common femoral vein is patent and compressible . Ordering Physician: Aylin Manzo Referring Physician: Fito Velez Performed By: [place] T Physical Exam Const alert, oriented x3, no apparent distress and healthy appearing General Appearance: cooperative, well kempt and well developed Orientation / Consciousness: awake, oriented to person, oriented to place and oriented to time HEENT normocephalic and moist oral mucous membranes Eyes PERRL, EOMs intact bilaterally and conjunctivae normal Neck supple, no JVD, thyroid normal and no carotid bruits General: trachea midline Resp normal respiratory effort and clear to auscultation bilaterally Auscultation: Negative for rales, rhonchi or wheezes Cardio regular rate, regular rhythm, no murmurs, no rub and no gallops GI normal to inspection, nondistended, normoactive bowel sounds, soft to palpation, non-tender and non-distended Extremity Extremity Narrative: There is some generalized swelling the patient's right foot and right lower leg Skin no rashes or lesions noted General Skin Exam: no breakdown Neuro oriented x3, CN's II-XII intact bilaterally, no focal motor deficits and no sensory deficits noted Sensorium / Orientation: awake and alert Speech: speech normal Psych affect normal Assessment & Plan Assessment/Plan (1) Cellulitis of foot: PLAN: Plan 1. Acute on chronic congestive heart failure with preserved ejection fraction #2 right foot cellulitis #3 hypoxia secondary to #1 #5 essential hypertension #6 coronary artery disease Total clinical time spent by myself addressing the patient's medical issues, reviewing all of his data, and collaborating with patient's care team: 35-minute Charges/Coding Visit Charges Inpatient E&M: 81949 Subs Hosp L2
[2024-09-01] MEDS: Atorvastatin Calcium 80 MG Tablet PO (21:18)
[2024-09-01] MEDS: Montelukast 10 MG Tablet PO (21:19)
[2024-09-01] MEDS: Nystatin Powder 15gm Bottle 1 APPLIC TOPICAL (21:21)
[2024-09-01 21:44] LABS: Bedside Glucose 187 mg/dL (74-106)
[2024-09-02] VITALS (9 sets, daily range): BP systolic 105–127; BP diastolic 59–76; PULSE 69–71; RESP 16–18; TEMP 36.4–36.7; O2SAT 84–96; BMI 29.7
[2024-09-02] MEDS: Ampicillin/Sulbactam 3 GM in 0.9% Normal Saline (100mL MB+) 100 ML IV ×3 (00:01→11:38)
[2024-09-02] MEDS: 0.9% Saline Lock 10 ML Syringe IV ×3 (00:03→13:39)
[2024-09-02] MEDS: oxyCODONE 5 MG Tablet PO (02:03)
[2024-09-02] MEDS: Nystatin Powder 15gm Bottle 1 APPLIC TOPICAL (05:03)
[2024-09-02] MEDS: Acetaminophen 500 MG Tablet 1000 MG PO ×2 (05:03→13:39)
[2024-09-02] MEDS: Furosemide 20 MG/2 ML VIAL IV ×2 (05:07→13:38)
[2024-09-02 06:10] LABS: Absolute Lymphocyte Count 0.72 X10^3/uL (0.83-4.51); Absolute Neutrophil Count 5.5 X10^3/uL (2.0-7.7); Basophil# 0.06 X10^3/uL; Basophil% 0.8 % (0-1); Eosinophil# 0.27 X10^3/uL; Eosinophils% 3.7 % (0-5); Hematocrit 37.6 % (40-54); Hemoglobin 11.8 g/dL (13.0-16.5); Lymphocyte # 0.72 X10^3/ul (0.83-4.51); Lymphocyte % 9.9 % (19-41); Mean Corp Hgb Conc 31.4 g/dL (32-36); Mean Corpuscular Hgb 29.9 pg (27.0-32.0); Mean Corpuscular Volume 95.2 fL (80-94); Mean Platelet Vol. 11.4 fl (6.2-12.0); Monocyte# 0.74 X10^3/uL; Monocyte% 10.1 % (0-10); NRBC Flagged by Analyzer 0 % (0-5); Neutrophil # 5.45 X10^3/uL (2.7-7.7); Neutrophil % 74.7 % (47-70); Platelet Count 179 K/mm3 (150-450); RBC Distribution Width SD 49.5 fl (35.1-43.9); Red Blood Count 3.95 M/mm3 (4.6-6.2); White Blood Count 7.3 K/mm3 (4.4-11.0)
[2024-09-02 06:59] LABS: Anion Gap 6 (5-15); BUN 20 mg/dL (7-18); BUN/Creat Ratio 16.7 RATIO (10-20); Calcium,Total 8.9 mg/dL (8.5-10.1); Chloride 103 mmol/L (98-107); EST Glomerular Filtration Rate 62 mL/min (>60); Est Glom Filt Rate - Afr Amer 75 mL/min (>60); Estimated Creatinine Clearance 51.51 ml/min; Glucose 120 mg/dL (74-106); Potassium 3.8 mmol/L (3.5-5.1); Sodium Level 140 mmol/L (136-145)
[2024-09-02 07:05] LABS: Bedside Glucose 117 mg/dL (74-106)
--- NOTE | 2024-09-02 08:47 | RAD_ITS ---
PROCEDURE: CHEST PA AND LATERAL REASON FOR EXAM: Hypoxia. TECHNIQUE: PA and lateral chest radiographs were obtained. COMPARISON: Comparison is made with prior study dated August 25, 2024. FINDINGS: Status post CABG. Left-sided dual-chamber pacemaker is seen. Blunting of both costophrenic angles slightly more prominent on the right side with increased vascular markings suggestive of mild CHF. Degenerative changes of the thoracic spine. RAD/Chest PA and Lateral IMPRESSION: Findings in keeping with a mild degree of CHF with blunting of both costophreni c angles slightly more prominent on the right side. Reading Location: [facility]
[2024-09-02] MEDS: guaiFENesin 1,200 MG Tablet 1200 MG PO (09:07)
[2024-09-02] MEDS: Isosorbide Mononitrate 30 MG Tablet PO (09:07)
[2024-09-02] MEDS: APIXABAN 5 MG TABLET PO (09:07)
[2024-09-02] MEDS: Ramipril 10 MG Capsule PO (09:07)
[2024-09-02] MEDS: Carvedilol 25 MG Tablet PO (09:07)
[2024-09-02] MEDS: Insulin Lispro 100 UNIT/ML INSULN.PEN SC (11:38)
[2024-09-02] MEDS: amLODIPine 5 MG Tablet PO (11:38)
[2024-09-02 12:02] LABS: Bedside Glucose 220 mg/dL (74-106)
--- NOTE | 2024-09-02 13:48 | DCINST_ITS ---
Discharge Instructions Diet Discharge Diet: 1800 Calorie Control Diet DC O2, CPAP, BIPAP needs Home O2 Discharge instructions: Yes Type of respiratory needs?: Oxygen Oxygen frequency: Continuous Continuous oxygen liters per minute: 2 L and With Ambulation Oxygen liters per minute during Ambulation: 4 L Dressing / Incision Discharge Activity: Return to Normal Activity Weight Bearing Status: Full weight bearing Follow Up Care Test Results: Test results from this visit will be discussed in further detail at your follow- up appointment, if applicable. Discharge Plan Admission Admit Date/Time: 08/25/24 12:34 Primary Reason for Your Visit: CHF Attending Provider: Jimmie Munguia Primary Care Provider: Fito Velez Consulting Providers: Elpidio Ramos Nana Yaa Instructions Additional Instructions / Restrictions: Use oxygen at 2 L/min continuously at rest, increase oxygen to 4 L/min via nasal cannula when ambulating Discharge Orders/Prescriptions Prescriptions: New carvedilol 25 mg Tablet 25 mg PO BIDCM Qty: 0 0RF nystatin [Nyamyc] 100,000 unit/gram Powder 1 applic topical TID Qty: 45 0RF Protocol: *Topical Application Instructions APPLICATION INSTRUCTIONS: GROIN oxycodone 5 mg Tablet 5 mg PO Q6H PRN PRN (Reason: Pain Score 1-10) 7 Days Qty: 20 0RF furosemide [Lasix] 40 mg tablet 40 mg PO BID Qty: 60 0RF amoxicillin-pot clavulanate 875-125 mg tablet 1 tab PO BID Qty: 14 0RF Rx Instructions: Take with food Continued fluticasone propionate [Flonase Allergy Relief] 50 mcg/actuation spray,suspension 50 mcg INTRANASAL BID PRN (Reason: Congestion) ipratropium-albuterol 0.5 mg-3 mg(2.5 mg base)/3 mL solution for nebulization 3 ml INHALATION Q4H PRN (Reason: Sob &/Or Wheezing) isosorbide mononitrate 30 mg tablet extended release 24 hr 30 mg PO BID montelukast 10 mg tablet 10 mg PO QHS metformin 500 mg tablet 500 mg PO BID nitroglycerin 0.4 mg tablet, sublingual 0.4 mg SUBLINGUAL Q5M PRN (Reason: Chest Pain) Qty: 25 3RF pregabalin 50 mg capsule 50 mg PO DIRECTED Patient Comments: PT ISN'T SURE OF THE MG potassium chloride 20 mEq tablet extended release 20 meq PO QDAY Qty: 90 3RF ramipril 10 MG capsule 10 mg PO BID atorvastatin 80 MG tablet 80 mg PO QHS albuterol sulfate 2.5 mg /3 mL (0.083 %) solution for nebulization 2.5 mg inhalation Q4H PRN (Reason: SOB) Rx Instructions: Use q4 hours and PRN for wheezing guaifenesin 1,200 mg tablet extended release 12hr 1,200 mg PO Q12H amlodipine 5 mg tablet 5 mg PO DAILY acetaminophen [Tylenol Extra Strength] 500 mg Tablet 1,000 mg PO Q8 PRN (Reason: Pain) budesonide-formoterol [Symbicort] 160-4.5 mcg/actuation HFA aerosol inhaler 2 puff INHALATION Q12H Qty: 3 3RF Eliquis 5 mg tablet 5 mg PO BID Qty: 180 3RF Discontinued carvedilol 12.5 mg tablet 12.5 mg PO BID Rx Instructions: must administer with a meal/food furosemide [Lasix] 40 mg tablet 40 mg PO DAILY Referrals / Follow Up: Fito Velez MD [Primary Care Provider] - Within 2 Weeks Disposition Disposition (needs filled in before D/C Order can be placed): Home Health Service
--- NOTE | 2024-09-02 14:10 | CASEMGMT ---
Patient has order for discharge. Patient will need increase in home oxygen at discharge, script received and sent to [facility] via [facility]. RN CM in to discuss needs at discharge. RN CM updated patient that [facility] will contact patient with start of care. RN CM updated patient regarding increase in home oxygen. Patient states friend will bring portable tank for at discharge. Patient states friend has purchased walker for patient. Patient denies further needs or help at dischage. Patient had no further questions or concerns.
--- NOTE | 2024-09-02 14:19 | PCM.DC.SUM ---
Providers Date of Admission: 08/25/24 Date of Discharge: 09/02/24 Primary Care Physician: Dr. Fito Velez MD Reason For Visit: HEART FAILURE Diagnosis Discharge Diagnosis (1) Acute on chronic hypoxic respiratory failure: Status: Chronic Code(s): J96.21 - Acute and chronic respiratory failure with hypoxia (2) Acute on chronic diastolic CHF (congestive heart failure), NYHA class 3: Status: Chronic Code(s): I50.33 - Acute on chronic diastolic (congestive) heart failure (3) Pleural effusion: Status: Acute Code(s): J90 - Pleural effusion, not elsewhere classified Plan Final diagnosis: #1 acute on chronic congestive heart failure with preserved ejection fraction #2 right foot cellulitis #3 hypoxia secondary to #1 #4 essential hypertension #5 coronary artery disease Medications at Discharge Home Medications ramipril 10 mg capsule 10 mg PO BID blood pressure 12/25/13 fluticasone propionate 50 mcg/actuation nasal spray,suspension (Flonase Allergy Relief) 50 mcg intranasal BID PRN Congestion 06/25/17 atorvastatin 80 mg tablet 80 mg PO QHS cholesterol 08/14/17 ipratropium 0.5 mg-albuterol 3 mg (2.5 mg base)/3 mL nebulization soln 3 ml inhalation Q4H PRN Sob &/Or Wheezing 09/03/18 isosorbide mononitrate 30 mg tablet,extended release 24 hr 30 mg PO BID blood pressure 10/28/19 montelukast 10 mg tablet 10 mg PO QHS allergy 02/17/20 metformin 500 mg tablet 500 mg PO BID blood glucose 06/28/20 budesonide-formoterol HFA 160 mcg-4.5 mcg/actuation aerosol inhaler (Symbicort) 2 puff inhalation Q12H ASTHMA #3 device 01/18/24 nitroglycerin 0.4 mg sublingual tablet 0.4 mg sublingual Q5M PRN Chest Pain #25 tabs 03/20/24 apixaban 5 mg tablet (Eliquis) 5 mg PO BID BLOOD THINNER #180 tabs 04/07/24 albuterol sulfate 2.5 mg/3 mL (0.083 %) solution for nebulization 2.5 mg inhalation Q4H PRN SOB 07/01/24 guaifenesin 1,200 mg tablet, extended release 12 hr 1,200 mg PO Q12H congestion 07/01/24 amlodipine 5 mg tablet 5 mg PO DAILY BP 08/19/24 potassium chloride 20 mEq tablet,extended release 20 meq PO QDAY supplement #90 tabs 08/19/24 pregabalin 50 mg capsule 50 mg PO DIRECTED pain 08/19/24 acetaminophen 500 mg tablet (Tylenol Extra Strength) 1,000 mg PO Q8 PRN Pain 08/25/24 amoxicillin 875 mg-potassium clavulanate 125 mg tablet 1 tab PO BID #14 tabs 09/02/24 carvedilol 25 mg tablet 25 mg PO BIDCM #0 tabs 09/02/24 furosemide 40 mg tablet (Lasix) 40 mg PO BID #60 tabs 09/02/24 nystatin 100,000 unit/gram topical powder (Nyamyc) 1 applic topical TID #45 GMS 09/02/24 oxycodone 5 mg tablet 5 mg PO Q6H PRN PRN Pain Score 1-10 7 days #20 tabs 09/02/24 Hospital Course Procedures None Summary of Care Provided Minutes Spent on Discharge: 32 Hospital Course: This 78-year-old white male presented to the emergency room at [facility] with complaints of increasing shortness of breath. Patient was found to be hypoxic on his 3 to 4 L of nasal cannula which he uses at home, patient was given IV Lasix and labs showed a BNP which was elevated at 372. Patient was admitted to PCU for acute on chronic diastolic CHF with a backdrop of acute on chronic hypoxic respiratory failure he was placed on IV Lasix and his pulse ox was monitored. Echocardiogram was not obtained due to the fact he had a recent 1 done at another hospital which showed an EF of 58%. Patient developed pain in his right foot with some redness and it was felt that the patient did have right foot cellulitis and he was treated with IV antibiotics. Patient improved during his hospitalization. On 09/02/2024 patient was seen and examined: On examination he appeared in good health and spirits. Vital signs as documented. Skin warm and dry and without overt rashes. Neck without JVD, neck was supple, trachea midline, thyroid was normal. Lungs clear bilaterally, normal air movement was noted. Heart exam notable for regular rhythm, normal sounds and absence of murmurs, rubs or gallops. Abdomen unremarkable and without evidence of organomegaly, masses, or abdominal aortic enlargement. Bowel sounds are present, abdomen is not distended. Extremities-patient's right foot was reddened and moderately edematous, it was tender to palpation, no discharge was noted from the right foot. Neuro: Cranial nerves II through XII are grossly intact, no focal motor deficits were noted, sensation to light touch and pinprick intact, motor exam 5/5 throughout. Psych: Patient is alert and oriented x3, he does not appear anxious or depressed, he does not appear agitated. Patient appeared stable for discharge home on 09/02/2024 Weight / BMI Weight Weight: 86.3 kg Body Mass Index (BMI) 29.7 ABG / Lab / Microbiology Data 09/02/24 05:12 09/02/24 05:12 Laboratory: Laboratory Results - last 24 hr 09/01/24 16:56: POC Glucose 134 H 09/01/24 21:15: POC Glucose 187 H 09/02/24 05:12: WBC 7.3, RBC 3.95 L, Hgb 11.8 L, Hct 37.6 L, MCV 95.2 H, MCH 29.9, MCHC 31.4 L, RDW Std Deviation 49.5 H, RDW Coeff of Kip 14.0, Plt Count 179, MPV 11.4, Immature Gran % (Auto) 0.800, Neut % (Auto) 74.7 H, Lymph % (Auto) 9.9 L, [place] % (Auto) 10.1 H, Eos % (Auto) 3.7, Baso % (Auto) 0.8, Absolute Neuts (auto) 5.5, Absolute Lymphs (auto) 0.72 L, Nucleated RBC % 0, Sodium 140, Potassium 3.8, Chloride 103, Carbon Dioxide 30.0, Anion Gap 6, BUN 20 H, Creatinine 1.20, Estim Creat Clear Calc 51.51, Est GFR (MDRD) Af Amer 75, Est GFR (MDRD) Non-Af 62, BUN/Creatinine Ratio 16.7, Glucose 120 H, Calcium 8.9 09/02/24 06:46: POC Glucose 117 H 09/02/24 11:35: POC Glucose 220 H Radiography Diagnostic Testing: Radiology Impression Chest X-Ray 09/02/24 08:47 IMPRESSION: Findings in keeping with a mild degree of CHF with blunting of both costophrenic angles slightly more prominent on the right side. Reading Location: [id number]/ Instructions Discharge Diet: 1800 Calorie Control Diet Weight Bearing Status: Full weight bearing DC O2, CPAP, BIPAP Needs Home O2 Discharge instructions: Yes Type of respiratory needs?: Oxygen Oxygen frequency: Continuous Continuous oxygen liters per minute: 2 L and With Ambulation Oxygen liters per minute during Ambulation: 4 L DC home with Oxygen: Yes Home O2 MD Review: I have reviewed the oxygen testing, and the patient qualifies for home oxygen equipment and portability. The patient is mobile in the home and the community. Meaningful Use Info Meaningful Use Meaningful Use Diagnoses (Choose all that apply): CHF CHF MANNY/ARB ordered at discharge?: Yes Documented LVEF (%): 58 Ischemic Stroke Statin Dosing Therapy Reference: STATIN DOSE THERAPY REFERENCE: * Patients > 75 years receive moderate or high dose statin therapy. * Patients 75 years or YOUNGER should receive HIGH intensity statin dose unless contraindicated. You will be required to document reason for non-treatment if statin daily dose does not meet guidelines. HIGH DOSE STATIN THERAPY DAILY Atorvastatin > than or = to 40 mg Rosuvastatin > than or = to 20 mg Amlodipine + Atorvastatin > than or = to 2.5/40 mg Ezetimibe + Simvastatin 10/80 mg Simvastatin 80mg Discharge Plan Admission Admit Date/Time: 08/25/24 12:34 Primary Reason for Your Visit: CHF Attending Provider: Jimmie Munguia Primary Care Provider: Fito Velez Consulting Providers: Elpidio Ramos Nana Yaa Instructions Additional Instructions / Restrictions: Use oxygen at 2 L/min continuously at rest, increase oxygen to 4 L/min via nasal cannula when ambulating Discharge Orders/Prescriptions Prescriptions: New carvedilol 25 mg Tablet 25 mg PO BIDCM Qty: 0 0RF nystatin [Nyamyc] 100,000 unit/gram Powder 1 applic topical TID Qty: 45 0RF Protocol: *Topical Application Instructions APPLICATION INSTRUCTIONS: GROIN oxycodone 5 mg Tablet 5 mg PO Q6H PRN PRN (Reason: Pain Score 1-10) 7 Days Qty: 20 0RF furosemide [Lasix] 40 mg tablet 40 mg PO BID Qty: 60 0RF amoxicillin-pot clavulanate 875-125 mg tablet 1 tab PO BID Qty: 14 0RF Rx Instructions: Take with food Continued fluticasone propionate [Flonase Allergy Relief] 50 mcg/actuation spray,suspension 50 mcg INTRANASAL BID PRN (Reason: Congestion) ipratropium-albuterol 0.5 mg-3 mg(2.5 mg base)/3 mL solution for nebulization 3 ml INHALATION Q4H PRN (Reason: Sob &/Or Wheezing) isosorbide mononitrate 30 mg tablet extended release 24 hr 30 mg PO BID montelukast 10 mg tablet 10 mg PO QHS metformin 500 mg tablet 500 mg PO BID nitroglycerin 0.4 mg tablet, sublingual 0.4 mg SUBLINGUAL Q5M PRN (Reason: Chest Pain) Qty: 25 3RF pregabalin 50 mg capsule 50 mg PO DIRECTED Patient Comments: PT ISN'T SURE OF THE MG potassium chloride 20 mEq tablet extended release 20 meq PO QDAY Qty: 90 3RF ramipril 10 MG capsule 10 mg PO BID atorvastatin 80 MG tablet 80 mg PO QHS albuterol sulfate 2.5 mg /3 mL (0.083 %) solution for nebulization 2.5 mg inhalation Q4H PRN (Reason: SOB) Rx Instructions: Use q4 hours and PRN for wheezing guaifenesin 1,200 mg tablet extended release 12hr 1,200 mg PO Q12H amlodipine 5 mg tablet 5 mg PO DAILY acetaminophen [Tylenol Extra Strength] 500 mg Tablet 1,000 mg PO Q8 PRN (Reason: Pain) budesonide-formoterol [Symbicort] 160-4.5 mcg/actuation HFA aerosol inhaler 2 puff INHALATION Q12H Qty: 3 3RF Eliquis 5 mg tablet 5 mg PO BID Qty: 180 3RF Discontinued carvedilol 12.5 mg tablet 12.5 mg PO BID Rx Instructions: must administer with a meal/food furosemide [Lasix] 40 mg tablet 40 mg PO DAILY Referrals / Follow Up: Fito Velez MD [Primary Care Provider] - 09/09/24 11:20 am Disposition Disposition (needs filled in before D/C Order can be placed): Home Health Service Charges/Coding Visit Charges Inpatient E&M: 15347 Disch Hosp >30min
--- NOTE | 2024-09-02 15:06 | CASEMGMT ---
Discharge Planning Discharge instructions sent via [facility] to [facility]. Angelika Mcnamara DC Planning Asst.
--- NOTE | 2024-09-02 16:30 | PHA.DC.MC.R ---
Pharmacy [facility] has performed discharge medication reconciliation and counseling for this patient. 1. AMOXICILLIN/CLAVULANATE 875/125MG PO BID X 7 DAYS 2. NYSTATIN POWDER TOPICAL TID 3. OXYCODONE 5MG PO Q6H PRN PAIN 4. LASIX INCREASED TO BID, CARVEDILOL INCREASED TO 25MG The patient's discharge medication list was reviewed for discrepancies and discrepancies were resolved. The patient was counseled on the following discharge medications and changes in medications for homegoing were reviewed. The Reason for Use, instructions for use, and potential side effects were reviewed for all new medications. The patient's questions regarding all of their medications were answered. The patient was able to verbally demonstrate an understanding of their discharge medications. Medications at Discharge Home Medications ramipril 10 mg capsule 10 mg PO BID blood pressure 12/25/13 fluticasone propionate 50 mcg/actuation nasal spray,suspension (Flonase Allergy Relief) 50 mcg intranasal BID PRN Congestion 06/25/17 atorvastatin 80 mg tablet 80 mg PO QHS cholesterol 08/14/17 ipratropium 0.5 mg-albuterol 3 mg (2.5 mg base)/3 mL nebulization soln 3 ml inhalation Q4H PRN Sob &/Or Wheezing 09/03/18 isosorbide mononitrate 30 mg tablet,extended release 24 hr 30 mg PO BID blood pressure 10/28/19 montelukast 10 mg tablet 10 mg PO QHS allergy 02/17/20 metformin 500 mg tablet 500 mg PO BID blood glucose 06/28/20 budesonide-formoterol HFA 160 mcg-4.5 mcg/actuation aerosol inhaler (Symbicort) 2 puff inhalation Q12H ASTHMA #3 device 01/18/24 nitroglycerin 0.4 mg sublingual tablet 0.4 mg sublingual Q5M PRN Chest Pain #25 tabs 03/20/24 apixaban 5 mg tablet (Eliquis) 5 mg PO BID BLOOD THINNER #180 tabs 04/07/24 albuterol sulfate 2.5 mg/3 mL (0.083 %) solution for nebulization 2.5 mg inhalation Q4H PRN SOB 07/01/24 guaifenesin 1,200 mg tablet, extended release 12 hr 1,200 mg PO Q12H congestion 07/01/24 amlodipine 5 mg tablet 5 mg PO DAILY BP 08/19/24 potassium chloride 20 mEq tablet,extended release 20 meq PO QDAY supplement #90 tabs 08/19/24 pregabalin 50 mg capsule 50 mg PO DIRECTED pain 08/19/24 acetaminophen 500 mg tablet (Tylenol Extra Strength) 1,000 mg PO Q8 PRN Pain 08/25/24 amoxicillin 875 mg-potassium clavulanate 125 mg tablet 1 tab PO BID #14 tabs 09/02/24 carvedilol 25 mg tablet 25 mg PO BIDCM #0 tabs 09/02/24 furosemide 40 mg tablet (Lasix) 40 mg PO BID #60 tabs 09/02/24 nystatin 100,000 unit/gram topical powder (Nyamyc) 1 applic topical TID #45 GMS 09/02/24 oxycodone 5 mg tablet 5 mg PO Q6H PRN PRN Pain Score 1-10 7 days #20 tabs 09/02/24
--- NOTE | 2024-09-05 07:07 | CASEMGMT ---
SALVADOR CM: Voicemail message received from Dede with [facility] in which a request was made for pt's DC date for resumption of HH services. Call placed to [facility] ([phone]) and spoke with Christine. Provided update that pt had been dc'd on 09/02 and dc instruction sent via [employer] on that same date. Christine states she will notify Dede of the information. This keno writer / runner's phone number provided for any follow-up questions. Fanny Lara RN AC
--- NOTE | 2024-09-11 17:07 | CASEMGMT ---
SALVADOR CM: Call received from Dr. Velez's office regarding pt's follow-up appointments with cardiology and pulmonolgy due to pt expressing concern that he was not receiving a call back to schedule. Return call made to the [facility] Family Practice nurses as requested and spoke with Shae. [facility] Dr[facility] Levin on 09/17 and Angella Garcia on 10/08 which was shared with Shae. She shared that pt has been scheduled for oupt pulmonary testing on 09/19 with a subsequent appointment with Dr. Tiffanie Slaughter that same day. Shae denied any further concerns or f/u needed. Fanny Lara RN AC
== END 2024-09-02 16:49 | disposition home health service (06) | DRG 291 ==
LOC: ED 12:42 → PCU 15:42
PROVIDERS: Family Medicine; Student in an Organized Health Care Education/Training Program; Admitting Provider Family Medicine; Emergency Provider Emergency Medicine; PCP Family Medicine; Visit Provider Internal Medicine
DX: I11.0 Hypertensive heart disease with heart failure (principal); I50.33 Acute on chronic diastolic (congestive) heart failure; J90 Pleural effusion, not elsewhere classified; J96.11 Chronic respiratory failure with hypoxia; L03.115 Cellulitis of right lower limb; Z79.01 Long term (current) use of anticoagulants; E11.51 Type 2 diabetes mellitus with diabetic peripheral angiopathy without gangrene; J44.9 Chronic obstructive pulmonary disease, unspecified; I48.91 Unspecified atrial fibrillation; I25.10 Atherosclerotic heart disease of native coronary artery without angina pectoris; I25.5 Ischemic cardiomyopathy; E78.5 Hyperlipidemia, unspecified; E87.6 Hypokalemia; Z95.1 Presence of aortocoronary bypass graft; Z95.5 Presence of coronary angioplasty implant and graft; Z79.84 Long term (current) use of oral hypoglycemic drugs; Z79.51 Long term (current) use of inhaled steroids; Z87.891 Personal history of nicotine dependence; Z95.810 Presence of automatic (implantable) cardiac defibrillator; Z86.73 Personal history of transient ischemic attack (TIA), and cerebral infarction without residual deficits; Z99.89 Dependence on other enabling machines and devices
CPT/HCPCS: 36415; 71046; 71250; 73630; 76604; 80048; 82962; 83735; 83880; 84100; 84484; 85025; 85610; 85730; 93005; 93971; 94668; 97116; 97162; 97803; 99284; A4216; J0295; J1940

== ENCOUNTER → 2024-08-25 | Outpatient (CLI) | payer MEDICARE, OTHER, SELFPAY ==
--- NOTE | 2024-08-25 10:25 | US_ITS ---
PROCEDURE: Ultrasound of the thorax. REASON FOR EXAM: Pleural effusion PROCEDURE: No procedure was performed, as the patient is evidently not off blood thinners, according to technologist notes. COMPARISON: Chest radiograph 08/25/2024 FINDINGS: Ultrasound of both misti thoraces was performed. Small left and moderate right pleural effusions are present. No thoracentesis was performed. US/Chest IMPRESSION: Small left and moderate right pleural effusions are demonstrated. No thoracent esis was performed. Reading Location: [facility]
--- NOTE | 2024-08-25 11:29 | NURSING ---
During appt for Thoracentesis, pt expressed he is still taking Eliquis. COURTNEY Baker and Dr. Mcmahon made aware pt is currently taking Eliquis and HASBLED is 3. Providers would like pt's Eliquis to be held according to the IR Anticoagulation Guidelines. Pt is agreeable. SALAVDOR Quick takes pt to waiting room to find design engineer products who is not in the waiting room. Pt calls design engineer products and she arrives within 2 minutes. Pt's design engineer products asks if pt's SpO2 can be checked because he has been low at home in the high 70s and low 80s with any movement, even on his 5L NC. SALVADOR Quick checks pt's SpO2 which reads 84% while pt is on 5L. SALVADOR Quick advises pt be seen in ED due to low SpO2 despite being on 5L NC. Duralumin Metalworker and pt in agreement and SALVADOR Quick takes pt to ED.
--- NOTE | 2024-08-25 11:38 | PCM.PN.BLA ---
Progress Note Mr. Faith presented to the radiology department today for a thoracentesis. He has a history of heart failure. The patient was hospitalized in [place] from 07/31 through 08/04 where they performed a left-sided thoracentesis on 08/01 removing 550mL. The patient is noted to be on Eliquis for a history of A-fib/flutter and recently had a left carotid endarterectomy on 07/15/24. An ultrasound survey was conducted today and there was a small to moderate pleural effusion present; however, given his Eliquis use, anemia, and age, the patient is at an increased bleeding risk with a HAS-BLED score of 3. It is recommended to hold his Eliquis for 4 doses prior to performing a thoracentesis outpatient or it will need to be performed in an inpatient setting where the patient can be monitored for bleeding. Per his caregiver, his oxygen saturation has been dropping into the 70's at home. On today's presentation, he was noted to have dyspnea. He is on his baseline oxygen of 4 to 5 L nasal cannula. Oxygen saturation is 84%. He was sent to the emergency department for further assessment. If a thoracentesis needs to urgently be performed, coagulation studies are advised to be checked. This plan was discussed and agreed upon with Dr. Mcmahon, nursing staff, and the patient.
== END | disposition home or self-care (01) ==
LOC: US 10:21
PROVIDERS: PCP Family Medicine; Referring Provider Nurse Practitioner Acute Care; Visit Provider Nurse Practitioner Acute Care
DX: J90 Pleural effusion, not elsewhere classified (principal); Z79.01 Long term (current) use of anticoagulants; D64.9 Anemia, unspecified; R06.00 Dyspnea, unspecified
CPT/HCPCS: 76604